=== PATIENT | male | born 1960 | race Two or more races ===

== ENCOUNTER → 2024-09-24 | Outpatient (CLI) | payer MEDICARE, SELFPAY ==
[2024-09-24 09:51] LABS: Basophils # (Auto) 0.1 Thou/mm3 (0.0-0.2); Basophils % (Auto) 1 % (0-2.5); Eosinophils # (Auto) 0.3 Thou/mm3 (0.0-0.5); Eosinophils % (Auto) 2 % (0-10); Hematocrit 42.1 % (41.0-53.0); Immature Granulocytes % (Auto) 2 % (0-0); Immature Granulocytes Auto 0.17 Thou/mm3 (0.00-0.00); Lymphocytes # (Auto) 2.4 Thou/mm3 (1.0-4.8); Lymphocytes % (Auto) 22 % (10-50); Mean Corpuscular HGB Conc 33.3 g/dl (31.0-37.0); Mean Corpuscular Hemoglobin 33.7 pg (25.0-35.0); Mean Corpuscular Volume 101 fL (80-100); Monocytes # (Auto) 0.8 Thou/mm3 (0.0-0.8); Monocytes % (Auto) 7 % (0-12); Neutrophils # (Auto) 7.5 Thou/mm3 (1.8-7.7); Neutrophils % (Auto) 67 % (37-80); Nucleated Red Blood Cell % 0 /100 WBC (0); Platelet Count 171 Thou/mm3 (140-440); Red Blood Count 4.15 Miln/mm3 (4.50-5.90); White Blood Count 11.2 Thou/mm3 (3.8-10.6)
[2024-09-24 10:00] LABS: Glucose Estimated Average 114 mg/dL (80-131); Hemoglobin A1C 5.6 % Hgb (4.8-6.0)
[2024-09-24 10:03] LABS: PSA Medicare Annual Scrn 0.67 ng/mL (0-4.00)
[2024-09-24 10:07] LABS: Alanine Aminotransferase 22 U/L (10-49); Albumin, Serum 4.6 gm/dL (3.4-4.8); Alkaline Phosphatase 72 U/L (46-116); Anion Gap 9 (7-16); Aspartate Amino Transferase 14 U/L (0-34); BUN/Creatinine Ratio 21 Ratio (12-20); Bilirubin,Total 0.6 mg/dL (0.3-1.2); Blood Urea Nitrogen 21 mg/dL (9-23); C-Reactive Protein < 0.4 mg/dL (0.0-0.9); Calcium 9.9 mg/dL (8.3-10.6); Calcium (Corrected) 9.9 mg/dL (8.5-10.1); Carbon Dioxide 26.6 mMol/L (20.0-31.0); Cardiac Risk Estimate 3.5 RATIO (4.0-6.7); Chloride 105 mMol/L (98-107); Cholesterol 146 mg/dL (132-200); Globulin 2.3 gm/dL (2.3-3.5); Glucose 114 mg/dL (74-106); HDL Cholesterol 42 mg/dL (40-60); LDL Cholesterol,Calculated 76 mg/dL (0-130); Osmolality,Calculated 285 (275-295); Potassium 4.1 mMol/L (3.4-5.1); Sodium 141 mMol/L (136-145); Total Protein 6.9 gm/dL (5.7-8.2); Triglycerides 141 mg/dL (30-150); eGFR > 60 See Note
[2024-09-24 10:18] LABS: Sed Rate (ESR) 2 mm/hr (0-20)
[2024-09-24 11:14] LABS: RA Screen Negative (Negative)
[2024-09-27 06:44] LABS: ANA Screen, IFA NEGATIVE (NEGATIVE)
== END | disposition home or self-care (01) ==
LOC: COPL 07:59
PROVIDERS: PCP Internal Medicine; Referring Provider Internal Medicine; Visit Provider Internal Medicine
DX: M06.9 Rheumatoid arthritis, unspecified (principal); I48.91 Unspecified atrial fibrillation; D47.Z2 Castleman disease; R35.1 Nocturia
CPT/HCPCS: 36415; 80053; 80061; 83036; 84153; 85025; 85652; 86038; 86140; 86430; G0103

== ENCOUNTER → 2024-12-11 | Outpatient (CLI) | payer MEDICARE, SELFPAY ==
--- NOTE | 2024-12-11 08:12 | XR_ITS ---
Examination: Lumbar spine, 5 views Technique: Lumbar spine AP, lateral, coned lateral lower lumbar spine, bilateral obliques 5 views Exam date and time: December 11, 2024 0820 hours INDICATIONS: Low back pain radiating down both legs with difficulty standing 2 months, history lumbar spine surgery one year ago FINDINGS: Transpedicular lumbar fusion L4-S1 with satisfactory alignment Laminectomies L4, L5 Mild disc narrowing above the fusion site, L1-L2, L2-L3, L3-L4 No lumbar fracture Mild lumbar spondylosis IMPRESSION: Transpedicular lumbar fusion L4-S1 with anatomic alignment Degenerative disc disease as above
[2024-12-11 09:03] LABS: Misc Send Out* See Sep Rpt; Quantiferon-TB* See Sep Rpt
[2024-12-11 09:49] LABS: Basophils % (Auto) 0 % (0-2.5); Eosinophils # (Auto) 0.3 Thou/mm3 (0.0-0.5); Eosinophils % (Auto) 3 % (0-10); Hematocrit 44.5 % (41.0-53.0); Hemoglobin 14.8 g/dL (13.5-16.0); Immature Granulocytes % (Auto) 1 % (0-0); Immature Granulocytes Auto 0.09 Thou/mm3 (0.00-0.00); Lymphocytes % (Auto) 22 % (10-50); Mean Corpuscular HGB Conc 33.3 g/dl (31.0-37.0); Mean Corpuscular Hemoglobin 33.4 pg (25.0-35.0); Mean Corpuscular Volume 101 fL (80-100); Monocytes # (Auto) 0.7 Thou/mm3 (0.0-0.8); Monocytes % (Auto) 8 % (0-12); Neutrophils # (Auto) 6.1 Thou/mm3 (1.8-7.7); Neutrophils % (Auto) 66 % (37-80); Nucleated Red Blood Cell % 0 /100 WBC (0); Platelet Count 174 Thou/mm3 (140-440); RDW Standard Deviation 50.7 fL (35.1-43.9); Red Blood Count 4.43 Miln/mm3 (4.50-5.90); White Blood Count 9.2 Thou/mm3 (3.8-10.6)
[2024-12-11 10:01] LABS: Sed Rate (ESR) 2 mm/hr (0-20)
[2024-12-11 10:02] LABS: Glucose Estimated Average 108 mg/dL (80-131); Hemoglobin A1C 5.4 % Hgb (4.8-6.0)
[2024-12-11 10:04] LABS: Parathyroid Hormone Intact 56.5 pg/ml (18.5-88.0)
[2024-12-11 10:29] LABS: Alanine Aminotransferase 26 U/L (10-49); Albumin, Serum 4.5 gm/dL (3.4-4.8); Albumin/Globulin Ratio 1.9 (1.2-2.2); Alkaline Phosphatase 71 U/L (46-116); Anion Gap 10 (7-16); Aspartate Amino Transferase 16 U/L (0-34); BUN/Creatinine Ratio 20 Ratio (12-20); Bilirubin,Total 2.3 mg/dL (0.3-1.2); Blood Urea Nitrogen 20 mg/dL (9-23); C-Reactive Protein < 0.5 mg/dL (0.0-0.9); Calcium 9.6 mg/dL (8.3-10.6); Calcium (Corrected) 9.6 mg/dL (8.5-10.1); Carbon Dioxide 27.2 mMol/L (20.0-31.0); Cardiac Risk Estimate 4.1 RATIO (4.0-6.7); Chloride 105 mMol/L (98-107); Cholesterol 144 mg/dL (132-200); Free T4 (Free Thyroxine) 1.72 ng/dL (0.89-1.76); Globulin 2.4 gm/dL (2.3-3.5); Glucose 111 mg/dL (74-106); HDL Cholesterol 35 mg/dL (40-60); LDL Cholesterol,Calculated 89 mg/dL (0-130); Osmolality,Calculated 286 (275-295); Potassium 3.8 mMol/L (3.4-5.1); Sodium 142 mMol/L (136-145); Thyroid Stimulating Hormone 1.77 uIU/mL (0.55-4.78); Total Protein 6.9 gm/dL (5.7-8.2); Triglycerides 102 mg/dL (30-150); Uric Acid 6.5 mg/dL (3.7-9.2); eGFR > 60 See Note
[2024-12-11 10:51] LABS: Hepatitis A Antibody IgM Non Reactive (Non React); Hepatitis B Core Antibody IgM Non Reactive (Non React); Hepatitis B Surface Antigen Non Reactive (Non React); Hepatitis C Antibody Non Reactive (Non React)
[2024-12-11 11:24] LABS: RA Screen Negative (Negative)
[2024-12-12 11:35] LABS: Cocci Serology, IgM Negative (Negative)
[2024-12-13 11:29] LABS: Cocci Serology, IgG Negative (Negative)
[2024-12-18 07:23] LABS: ANA Screen, IFA NEGATIVE (NEGATIVE); CCP Antibody (IgG)* <16 Units; Complement Component C3* 99 mg/dL (82-185); Complement Component C4c* 10 mg/dL (15-53); HIV Ag/Ab, 4th Gen NON-REACTIVE
== END | disposition home or self-care (01) ==
LOC: CDIM 07:58 → COPL 08:28
PROVIDERS: PCP Internal Medicine; Referring Provider Internal Medicine; Visit Provider Internal Medicine
DX: D47.Z2 Castleman disease (principal); E79.0 Hyperuricemia without signs of inflammatory arthritis and tophaceous disease; E83.52 Hypercalcemia; I10 Essential (primary) hypertension; I48.20 Chronic atrial fibrillation, unspecified; K21.9 Gastro-esophageal reflux disease without esophagitis; M06.9 Rheumatoid arthritis, unspecified; M51.372 Other intervertebral disc degeneration, lumbosacral region with discogenic back pain and lower extremity pain; R53.83 Other fatigue; Z11.1 Encounter for screening for respiratory tuberculosis; Z11.59 Encounter for screening for other viral diseases; Z13.820 Encounter for screening for osteoporosis; Z68.33 Body mass index [BMI] 33.0-33.9, adult; Z79.01 Long term (current) use of anticoagulants; Z79.52 Long term (current) use of systemic steroids; Z98.1 Arthrodesis status
CPT/HCPCS: 36415; 72110; 80053; 80061; 80074; 83036; 83970; 84439; 84443; 84550; 85025; 85652; 86038; 86140; 86160; 86200; 86331; 86430; 86480; 86635; 87389

== ENCOUNTER 2025-03-11 04:53 | Emergency (ER) | payer MEDICARE, SELFPAY ==
[2025-03-11 04:53] VITALS: BMI 33.6
[2025-03-11 04:59] VITALS: BP 151/80; PULSE 96; RESP 17; TEMP 36.6; O2SAT 93
--- NOTE | 2025-03-11 05:05 | EDNOTE_ITS ---
ED SOB =RME/HPI General Chief Complaint: Shortness of Breath/Dyspnea Stated Complaint: SOB Time Seen by Provider: 03/11/25 05:00 Arrival date/time: 03/11/25 04:53 RME / HPI RME / HPI Narrative: Dr. Garrido?s Main ED Evaluation: 64yo male with a history of aFib on Eliquis, CHF, HTN, Castleman disease, pacemaker presents to the ED for a chief complaint of shortness of breath x 1 month. Patient states his shortness of breath s ignificantly worsened tonight, reporting he was unable to wait until this afternoon to see his PCP, so he came in for evaluation. Patient reports associated chest tightness and pressure and a productive cough. Patient denies any fever, chills, abdominal pain, UTI symptoms or any other associated symptoms. He is an occasional tobacco smoker. Denies any alcohol or illicit drug use. 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 Marquez. NKA. Related Data Home Medications ?Medication ?Instructions ?Recorded ?Confirmed apixaban 5 mg tablet (Eliquis) 5 mg PO QDAY 12/12/23 0 12/12/23 digoxin 125 mcg (0.125 mg) tablet 0.125 mg PO QDAY 12/12/23 Previous Rx's ?Medication ?Instructions ?Recorded bumetanide 2 mg tablet 2 mg PO QDAY #30 tabs diltiazem HCl 240 mg capsule,24 240 mg PO QAM #30 caps 12/14/23 hr,extended release spironolactone 25 mg tablet 25 mg PO QAM #30 tabs 11/24 10/18 Allergies Allergy/AdvReac Type Severity Reaction Status Date / Time No Known Allergies Allergy Verified 03/11/25 04:55 Review of Systems Review of Systems Systems Reviewed: All systems reviewed, normal except as documented Past Medical History Past Medical History NEUROLOGIC: Negative Neurological Disorders or Seizures CARDIAC: Positive Cardiac Disorders (afib, sick sinus syndrome, pacemaker, HTN), Atrial Fibrillation, Edema (HANDS AND FEET) and Hypertension; Negative Congestive Heart Failure RESPIRATORY: Negative Chronic Obstructive Pulmonary Disease (COPD) or Asthma (Recent cough, sob, pleural effusion,) GASTROINTESTINAL: Negative Gastrointestinal Disorders (SEVERE NAUSEA SINCE AUGUST 2023) GENITOURINARY: Negative Genitourinary Disorders or Renal Disease MUSCULOSKELETAL: Positive Musculoskeletal Disorders, Arthritis and Osteoporosis ENDOCRINE: Negative Endocrine Disorders, Diabetes Mellitus Type 1 or Diabetes Mellitus Type 2 HEMATOLOGIC: Negative Blood Disorders or Sickle Cell Disease OTHER HISTORY: Positive Chicken Pox, Measles and Mumps; Negative Hospitalization, Autoimmune Disease, Shingles, Falls, Blood Transfusions, Blood Transfusion Reaction, Anesthesia Reactions, Organ Transplant, MRSA or Cancer Family History FAMILY HISTORY: Positive Family Cardiac Disorders; Negative Family Psychiatric Problems, Family Respiratory Disorders, Family Gastrointestinal Problems, Family Cancer or Family Anesthesia Reaction Surgical History SURGICAL: Positive Pacemaker and Joint Replacement; Negative Neurologic Surgery or Organ Transplant Social History SMOKING STATUS: Never smoker SUBSTANCE USE: does not use ED Exam Narrative Physical exam: GEN. APPEARANCE: The patient is alert awake oriented X-3 in no distress, lying down comfortably, does not look ill/toxic. Patient has good eye contact. Patient is cooperative. VITALS: All vitals were reviewed and the pulse ox is 93% on room air which is slightly hypoxic according to my interpretation. HEENT: Normocephalic, atraumatic. Pupils are equal and reactive. Oral mucosa is moist. Patent Nares NECK: Supple, nontender, no thyromegaly, no meningismus, no JVD CHEST: Symmetrical, atraumatic, and with equal expansion , Nontender on palpation no deformity and no crepitus. CARDIOVASCULAR: Heart regular rhythm no murmur or gallop rub or extra beats. LUNGS: Clear to auscultation bilaterally with symmetrical chest rise. No laboring tachypnea or wheezing. No intercostal subcostal retraction. No rales and no rhonchi. ABDOMEN: Soft, flat, nontender to palpation, no guarding or rebound tenderness. There are no abnormal masses palpated. Active and normal bowel sounds. EXTREMITIES: Nontender. No edema. No cyanosis. Patient is able to move all 4 extremities well, with full ROM and good CSM. SKIN: Warm and dry, no jaundice or rashes noted. MUSCULOSKELETAL: No lumbar or midline bony tenderness. There is no CVA tenderness. No paraspinal muscle spasm or tenderness. NEURO: Patient is MCBRIDE x 4, Cranial nerves II through XII grossly intact. There is no focal neurologic deficits noted. GCS is 15, PNS and DESULPHURIZER OPERATOR appear grossly intact. PSYCHIATRIC: Patient is in normal mood and affect. Course Course Course Narrative: CXR is ordered for determining the etiology of shortness of breath. Quality Measures none Orders Category Date Time Status Bedside COVID-19 Antigen Test NOW Care 03/11/25 05:08 Active EKG (ED ONLY) *Do not use* NOW Care 03/11/25 05:47 Active CXR2 [XR chest 2V] Stat Exams 03/11/25 05:08 Taken EKG (ED Only) Stat Exams 03/11/25 05:47 Ordered BNP [B-Type Natriuretic Peptide] Stat Lab 03/11/25 05:27 Received CBC Stat Lab 03/11/25 05:27 Received CMP [Comprehensive Metabolic Panel] Stat Lab 03/11/25 05:27 Received D-Dimer Stat Lab 03/11/25 05:27 Received Troponin I Stat Lab 03/11/25 05:27 Received Vital Signs Vital signs: Vital Signs Temperature 97.8 F 03/11/25 04:59 Pulse Rate 96 03/11/25 04:59 Respiratory Rate 17 03/11/25 04:59 Blood Pressure 151/80 H 03/11/25 04:59 Pulse Oximetry (%) 93 L 03/11/25 04:59 Oxygen Delivery Method Room Air 03/11/25 04:59 Shortness of Breath / Dyspnea MDM Narrative MDM Narrative:: Scribe Attestation: 03/11/25 Luann Hargrove am scribing for and in the presence of Dr. Garrido. Patient data External records reviewed:: [facility] previous records (Per chart review, patient was admitted here on 12/11/23 for aFib RVR.) Clinical information provided by:: patient Social determinants that could affect healthcare access:: substance use (occasional tobacco smoker) Patient has the following chronic illnesses:: aFib on Eliquis, CHF, HTN, Castleman disease How is presenting disease/condition affected by chronic disease/condition?: exacerbated by Evaluation data The following diagnostics were reviewed and interpreted by me:: lab results, radiology exam(s) and EKG tracing(s) Lab and/or radiology exams considered but not ordered:: none Interpretation Summary: Labs pending at signout. CXR shows no pleural effusions, no infiltrates, prominent vessels appreciated with cephalization, no consolidation, according to my interpretation. EKG done at 0553, aFib RVR, rate of 102, normal QTc, nonspecific ST-T changes, no STEMI, according to my interpretation. Medications / Prescriptions Medications or Prescriptions considered but not ordered:: none Medication administrations:: none Consultations Consultation(s) initiated? (list below): No Diagnosis Shortness of Breath Differential Diagnosis: community acquired pneumonia, pulmonary embolism and other (ACS, arrhythmia, CHF exacerbation) Most likely diagnosis given after review of the tests above:: dx pending at signout Admission Indicated Admission indicated?: not indicated Admission Request Was there a request for admission?: No Disposition Plan Disposition Plan: other (specify) (Signed out to Dr. Knox at 0600 pending labs and EKG.) Discharge Plan Prescriptions/Referrals Prescriptions/Med Rec: No Action digoxin 125 mcg (0.125 mg) tablet 0.125 mg PO QDAY Patient Comments: TAKE 1 TABLET BY MOUTH ONCE DAILY Eliquis 5 mg Tablet 5 mg PO QDAY spironolactone 25 mg Tablet 25 mg PO QAM Qty: 30 0RF diltiazem HCl 240 mg capsule,extended release 24 hr 240 mg PO QAM Qty: 30 0RF bumetanide 2 mg tablet 2 mg PO QDAY Qty: 30 0RF Referrals: Miki Broussard [Primary Care Provider] - In 1 week Problem List Clinical Impression: Chest pressure, Shortness of breath Patient/Caregiver Discharge Instructions Print Language: Macedonian
--- NOTE | 2025-03-11 05:08 | XR_ITS ---
Examination: PA lateral chest 2 views TECHNIQUE: Upright PA and lateral chest 2 views Shortness of breath one month worse tonight FINDINGS: Mild/moderate CHF Moderately large cardiac contour. Prominent vascular congestion with perihilar basilar edema Intraventricular cardiac lead satisfactory position IMPRESSION: Mild to moderate CHF
[2025-03-11 05:41] LABS: Basophils # (Auto) 0.1 Thou/mm3 (0.0-0.2); Basophils % (Auto) 0 % (0-2.5); Eosinophils # (Auto) 0.4 Thou/mm3 (0.0-0.5); Eosinophils % (Auto) 2 % (0-10); Hematocrit 45.3 % (41.0-53.0); Hemoglobin 15.1 g/dL (13.5-16.0); Immature Granulocytes % (Auto) 1 % (0-0); Immature Granulocytes Auto 0.17 Thou/mm3 (0.00-0.00); Lymphocytes # (Auto) 2.3 Thou/mm3 (1.0-4.8); Lymphocytes % (Auto) 16 % (10-50); Mean Corpuscular HGB Conc 33.3 g/dl (31.0-37.0); Mean Corpuscular Hemoglobin 33.2 pg (25.0-35.0); Mean Corpuscular Volume 100 fL (80-100); Monocytes # (Auto) 1.3 Thou/mm3 (0.0-0.8); Monocytes % (Auto) 9 % (0-12); Neutrophils # (Auto) 10.6 Thou/mm3 (1.8-7.7); Neutrophils % (Auto) 71 % (37-80); Nucleated Red Blood Cell % 0 /100 WBC (0); Platelet Count 181 Thou/mm3 (140-440); RDW Standard Deviation 55.2 fL (35.1-43.9); Red Blood Count 4.55 Miln/mm3 (4.50-5.90); White Blood Count 14.8 Thou/mm3 (3.8-10.6)
--- NOTE | 2025-03-11 05:47 | EKG_ITS ---
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
[2025-03-11 05:57] LABS: B-Type Natriuretic Peptide 113 pg/mL (0-100)
[2025-03-11 06:08] LABS: Alanine Aminotransferase 18 U/L (10-49); Albumin, Serum 4.4 gm/dL (3.4-4.8); Albumin/Globulin Ratio 1.8 (1.2-2.2); Alkaline Phosphatase 168 U/L (46-116); Anion Gap 9 (7-16); Aspartate Amino Transferase 22 U/L (0-34); BUN/Creatinine Ratio 17 Ratio (12-20); Blood Urea Nitrogen 20 mg/dL (9-23); Calcium 9.8 mg/dL (8.3-10.6); Calcium (Corrected) 9.8 mg/dL (8.5-10.1); Carbon Dioxide 25.3 mMol/L (20.0-31.0); Chloride 107 mMol/L (98-107); Creatinine (Component) 1.2 mg/dL (0.6-1.3); Estimated Creatinine Clearance 80.7 mL/min (>60); Globulin 2.5 gm/dL (2.3-3.5); Glucose 140 mg/dL (74-106); Osmolality,Calculated 285 (275-295); Potassium 4.3 mMol/L (3.4-5.1); Sodium 141 mMol/L (136-145); Total Protein 6.9 gm/dL (5.7-8.2); Troponin I < 0.020 ng/mL (0.0-0.045); eGFR > 60 See Note
[2025-03-11 06:18] LABS: D-Dimer 418 ng/mL (<600)
[2025-03-11 06:24] VITALS: BP 137/88; PULSE 110; RESP 18; TEMP 36.7; O2SAT 95
--- NOTE | 2025-03-11 07:41 | PD.EDADDENDU ---
Emergency Room Addendum Addendum Narrative: 0600: Care assumed from Dr. Garrido, the previous shift emergency physician. Past medical, surgical, social and family history reviewed. Vitals and home medications reviewed. I will assume the care of the patient at this time, pending labs and final disposition. Please refer to the emergency department record for history and examination from initial visit.?The following addendum documentation note is intended to reflect any pending information, findings, or radiology results not included in the patient?s initial chart. Patient remains clinically stable throughout the emergency department visit. We reviewed all the results, analysis, and treatment plans. D-Dimer today was 481 and within the normal range. CT angio is not indicated at this time. Patient also noted to have yellow sputum therefore will treat for bronchitis. Patient mentioned they changed his medications 8 months ago and unsure if that is a contributor. Patient is amenable to discharge. Strict return precautions were outlined. Patient was discharged in stable condition.
[2025-03-11 08:00] VITALS: BP 137/93; PULSE 108
[2025-03-11] MEDS: Furosemide 40 MG TABLET PO (08:00)
[2025-03-11 08:01] VITALS: BP 137/93; PULSE 103; RESP 20; TEMP 36.6; O2SAT 96
[2025-03-11 08:28] LABS: Digoxin 0.7 ng/mL (0.8-2.0)
[2025-03-11 09:42] VITALS: BP 145/99; PULSE 100; RESP 16; TEMP 36.7; O2SAT 95
== END 2025-03-11 09:43 | disposition home or self-care (01) ==
PROVIDERS: Emergency Provider Emergency Medicine; PCP Internal Medicine
DX: R06.02 Shortness of breath (principal); R07.89 Other chest pain; I48.91 Unspecified atrial fibrillation; I11.0 Hypertensive heart disease with heart failure; I50.9 Heart failure, unspecified; Z95.0 Presence of cardiac pacemaker
CPT/HCPCS: 36415; 71046; 80053; 80162; 83880; 84484; 85025; 85379; 87811; 93005; 99283; A9270

== ENCOUNTER 2025-03-15 17:43 | Inpatient (IN) | payer MEDICARE, SELFPAY ==
[2025-03-15 18:22] VITALS: BP 170/88; PULSE 96; RESP 18; TEMP 37.1; O2SAT 95; BMI 33.0
--- NOTE | 2025-03-15 18:30 | XR_ITS ---
Examination: PA chest single view FINDINGS: Upright PA chest single view Date and time: March 15, 2025 1833 hours Comparison March 11, 2025 INDICATIONS: Left supraclavicular swelling today FINDINGS: Siel-iu-hjwazllm heart failure Moderate enlarged cardiac contour Prominent vascular congestion with perihilar basilar edema Possible superimposed pneumonia right base Moderate right pleural effusion Stable position cardiac bleed Impression: [id number] heart failure Suspicious for superimposed pneumonia right base
--- NOTE | 2025-03-15 18:30 | EKG_ITS ---
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
--- NOTE | 2025-03-15 18:34 | PD.EDURI ---
Upper Respiratory Inf. 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 Patient told me that started earlier today severity of symptoms moderate. Patient is denying any pain. Denies any shortness of breath. Patient denies any fever. Denies any other complaints last infusion was given 2 weeks ago Related Data Home Medications ?Medication ?Instructions ?Recorded ?Confirmed apixaban 5 mg tablet (Eliquis) 5 mg PO QDAY 12/12/23 12/12/23 digoxin 125 mcg (0.125 mg) tablet 0.125 mg PO QDAY 12/12/23 12/12/23 Previous Rx's ?Medication ?Instructions ?Recorded bumetanide 2 mg tablet 2 mg PO QDAY #30 tabs 12/14/23 diltiazem HCl 240 mg capsule,24 240 mg PO QAM #30 caps 12/14/23 hr,extended release spironolactone 25 mg tablet 25 mg PO QAM #30 tabs 12/14/23 amoxicillin 875 mg-potassium 1 tab PO BID bronchitis #20 tabs 03/11/25 clavulanate 125 mg tablet Allergies Allergy/AdvReac Type Severity Reaction Status Date / Time No Known Allergies Allergy Verified 03/15/25 17:47 Review of Systems Review of Systems Narrative Review of Systems: Review of system reviewed and within normal limits except mentioned in HPI ED Exam Narrative Physical exam: VITAL SIGNS: Reviewed. GENERAL APPEARANCE: Alert and interactive, follows commands, no acute distress, HEAD AND FACE: Non-traumatic., Swelling noted on the left supraclavicular area nontender nonfluctuant ENT: PERRL, pink conjunctivitis, eyelid no trauma, Mucous membrane moist. NECK: Supple, nontender, no nuchal rigidity. CHEST: No tenderness, no crepitus, no paradoxical movement, no retractions. LUNGS: Clear, well ventilated, symmetric, no rales, no wheezing, no ronchi, no stridor, good breath sounds bilaterally. HEART: Regular rate, regular rhythm, no murmur, no gallops. ABDOMEN: Soft, positive bowel sounds, nondistended, no guarding, nontender, no rebound, no masses, RECTAL: Deferred. GENITAL: Deferred. NEUROLOGICAL: Gross motor function intact sensory function intact, Appropriate for age. MUSCULOSKELETAL: low back nontender, full range of motion. EXTREMITIES: Nontender, full range of motion. SKIN: Color pink, dry, no rash, no lacerations, no abrasions, no contusions. LYMPHATICS: Deferred. Course Orders Category Date Time Status EKG (ED ONLY) *Do not use* NOW Care 03/15/25 18:30 Active EKG (ED Only) Stat Exams 03/15/25 18:30 Ordered XR chest 1V Stat Exams 03/15/25 18:30 Ordered B-Type Natriuretic Peptide Stat Lab 03/15/25 18:30 Ordered CBC Stat Lab 03/15/25 18:30 Ordered CRP [C-Reactive Protein] Stat Lab 03/15/25 18:30 Ordered Comprehensive Metabolic Panel Stat Lab 03/15/25 18:30 Ordered ESR [Sed Rate (ESR)] Stat Lab 03/15/25 18:30 Ordered Partial Thromboplastin Time Stat Lab 03/15/25 18:30 Ordered Prothrombin Time with INR Stat Lab 03/15/25 18:30 Ordered Troponin I Stat Lab 03/15/25 18:30 Ordered Vital Signs Vital signs: Vital Signs Temperature 98.7 F 03/15/25 18:22 Pulse Rate 96 03/15/25 18:22 Respiratory Rate 18 03/15/25 18:22 Blood Pressure 170/88 H 03/15/25 18:22 Pulse Oximetry (%) 95 03/15/25 18:22 Oxygen Delivery Method Room Air 03/15/25 18:22 Discharge Plan Prescriptions/Referrals Prescriptions/Med Rec: No Action amoxicillin-pot clavulanate 875-125 mg tablet 1 tab PO BID MDD 2 Qty: 20 0RF digoxin 125 mcg (0.125 mg) tablet 0.125 mg PO QDAY Patient Comments: TAKE 1 TABLET BY MOUTH ONCE DAILY Eliquis 5 mg Tablet 5 mg PO QDAY spironolactone 25 mg Tablet 25 mg PO QAM Qty: 30 0RF diltiazem HCl 240 mg capsule,extended release 24 hr 240 mg PO QAM Qty: 30 0RF bumetanide 2 mg tablet 2 mg PO QDAY Qty: 30 0RF Patient/Caregiver Discharge Instructions Print Language: Australian
--- NOTE | 2025-03-15 18:37 | XR_ITS ---
Examination: CT soft tissue neck, with intravenous contrast. 2-D coronal reconstructions. 2-D sagittal reconstructions. Date and time of exam :March 15, 2025 10:28 PM INDICATIONS: Left neck supraclavicular swelling today. CTDI: vol (mGy):25.7 DLP: (mGycm):640 Technique: 1.25 mm axial sections of the neck of the obtained. Coronal and sagittal reconstructions have been obtained. Intravenous contrast administered 100 cc Isovue-370. Low dose protocols were performed. One or more of the following dose reduction techniques were used; automated exposure control, adjustment of the mA and/or KV according to patient size, use of iterative reconstruction technique. Findings: Symmetrical nasopharynx oropharynx Abnormal multiple enlarged left carotid triangle left posterior cervical left supraclavicular lymph nodes Prominent right pleural effusion Extensive partly visualized abnormal mediastinal lymphadenopathy IMPRESSION: Extensive abnormal cervical supraclavicular lymphadenopathy suspicious for metastatic disease Partially visualized extensive mediastinal lymphadenopathy
--- NOTE | 2025-03-15 18:54 | PD.EDURI ---
Upper Respiratory Inf. 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 Patient told me that started earlier today severity of symptoms moderate. Patient is denying any pain. Denies any shortness of breath. Patient denies any fever. Denies any other complaints last infusion was given 2 weeks ago This section includes all my notes and documentations, including HPI, PE, and ED course. Jacob Baca MD HPI: 64 y/o with Hx of Atrial Fibrillation, Congestive Heart Failure, Edema and Hypertension presents with worsening dyspnea and cough productive of green sputum x 2 weeks. In addition, patient also c/o a big lump to the left neck area x approximately 12 hours. Denies chest pain. No other complaints. ROS: All negative except as documented in HPI. Physical Exam: General: Alert and oriented. In mild respiratory distress. Hypoxia noted. Eyes: Conjunctivae and lids clear. ENT: No nasal congestion. Neck: Supple. Left-sided plum sized lump noted. Heart: Irregularly irregular (~150 bpm). Lungs: No respiratory distress. Good air movement with rales. Abdomen: Soft and nontender. Normal bowel sounds. No distension. No rebound or guarding. Back: No CVA tenderness. Skin: Warm and dry. Neuro: Alert and oriented X 3. I reviewed all diagnostic test results: My interpretation of the EKG is: Atrial fibrillation with RVR (140 bpm) with nonspecific ST-T changes. My interpretation of the chest x-ray is infiltrates. My review of the Head/Brain CT report is: NAD. My review of the Soft Tissue Neck CT report is: Extensive abnormal cervical supraclavicular lymphadenopathy suspicious for metastatic disease. My review of the Abdomen/Pelvis CT report is: Extensive abdominal pelvic mesenteric presumed metastatic lymphadenopathy. My review of the Chest CTA report is: Large right pleural effusion. Extensive mediastinal lymphadenopathy. Pneumonia in the right middle lobe and right lower lobe. Blood tests and urine tests remarkable for WBC 16.6 and D-dimer 1020. Covid/Influenza negative. At this point, diagnoses include: Acute Respiratory Failure with Hypoxia, Atrial Fibrillation with RVR, Pneumonia. Treatment here included: Cardizem bolus and drip, Rocephin, and Zithromax. I discussed the case with our hospitalist. About the presentation and exam and diagnostics and treatments here. And need of further care in the hospital. Will accept the patient. Jacob Baca MD Related Data Home Medications ?Medication ?Instructions ?Recorded ?Confirmed apixaban 5 mg tablet (Eliquis) 5 mg PO BID 12/12/23 03/16/25 digoxin 125 mcg (0.125 mg) tablet 0.125 mg PO QDAY 12/12/23 03/16/25 allopurinol 300 mg tablet 300 mg PO DAILY 03/16/25 03/16/25 lisinopril 20 mg tablet 20 mg PO DAILY 03/16/25 03/16/25 methylprednisolone 4 mg tablets in 4 mg PO DAILY 03/16/25 03/16/25 a dose pack metoprolol tartrate 100 mg tablet 100 mg PO BID 03/16/25 03/16/25 pantoprazole 40 mg tablet,delayed 40 mg PO DAILY 03/16/25 03/16/25 release Previous Rx's ?Medication ?Instructions ?Recorded bumetanide 2 mg tablet 2 mg PO QDAY #30 tabs 12/14/23 diltiazem HCl 240 mg capsule,24 240 mg PO QAM #30 caps 12/14/23 hr,extended release spironolactone 25 mg tablet 25 mg PO QAM #30 tabs 12/14/23 amoxicillin 875 mg-potassium 1 tab PO BID bronchitis #20 tabs 03/11/25 clavulanate 125 mg tablet Allergies Allergy/AdvReac Type Severity Reaction Status Date / Time No Known Allergies Allergy Verified 03/15/25 17:47 Review of Systems Review of Systems Systems Reviewed: All systems reviewed, normal except as documented Past Medical History Past Medical History CARDIAC: Positive Cardiac Disorders, Atrial Fibrillation, Congestive Heart Failure, Edema and Hypertension MUSCULOSKELETAL: Positive Musculoskeletal Disorders, Arthritis and Osteoporosis OTHER HISTORY: Positive Chicken Pox and Mumps Family History FAMILY HISTORY: Positive Family Cardiac Disorders Surgical History SURGICAL: Positive Pacemaker and Joint Replacement Social History SMOKING STATUS: Former smoker ED Exam Narrative Physical exam: Refer to HPI above Course Course Course Narrative: CXR is ordered for determining the etiology of shortness of breath. Quality Measures none Orders Category Date Time Status Admit to Inpatient Status Routine Admission 03/16/25 00:05 Active Patient Condition Routine Admission 03/16/25 00:05 Ordered Bedside COVID-19 Antigen Test NOW Care 03/15/25 18:54 Active Bedside Influenza A&B Antigen Test NOW Care 03/15/25 18:[address] Screening NOW Care 03/15/25 18:[address] Screening NOW Care 03/15/25 18:56 Active Continuous Pulse Oximetry NOW Care 03/16/25 00:04 Completed EKG (ED ONLY) *Do not use* NOW Care 03/15/25 18:30 Completed NPO NOW Care 03/16/25 00:06 Active Notify provider NEEDED Care 03/16/25 00:05 Active Saline [Insert IV] NOW Care 03/15/25 18:54 Active Straight [In and Out Catheter] X1 Care 03/15/25 18:54 Active Strict Intake and Output Routine Care 03/16/25 00:05 Ordered Diet NPO (NOW) Diet 03/16/25 00:[address] abdomen pelvis w con Stat Exams 03/15/25 18:[address] angio chest Stat Exams 03/15/25 18:[address] head/brain wo con Stat Exams 03/15/25 18:[address] soft tissue neck w con Stat Exams 03/15/25 18:37 Completed EKG (ED Only) Stat Exams 03/15/25 18:30 Draft XR chest 1V Stat Exams 03/15/25 18:30 Completed B-Type Natriuretic Peptide Stat Lab 03/15/25 18:51 Completed Bilirubin,Direct Stat Lab 03/15/25 18:51 Completed Blood Culture (Lab) Stat Lab 03/15/25 19:15 Results CBC AM DRAW Lab 03/16/25 04:50 Completed CBC AM DRAW Lab 03/17/25 05:00 Ordered CBC AM DRAW Lab 03/18/25 05:00 Ordered CBC Stat Lab 03/15/25 18:51 Completed COVID-19 Antigen (In-House) Stat Lab 03/15/25 19:35 Completed CRP [C-Reactive Protein] Stat Lab 03/15/25 18:51 Completed Cocci Serology IgM with reflex to IgG [Cocci Serology, Lab 03/15/25 19:44 Results Unk History] Stat Comprehensive Metabolic Panel AM DRAW Lab 03/16/25 04:50 Completed Comprehensive Metabolic Panel AM DRAW Lab 03/17/25 05:00 Ordered Comprehensive Metabolic Panel AM DRAW Lab 03/18/25 05:00 Ordered Comprehensive Metabolic Panel Stat Lab 03/15/25 18:51 Completed D-Dimer Stat Lab 03/15/25 18:51 Completed ESR [Sed Rate (ESR)] Stat Lab 03/15/25 18:51 Completed Free T4 (Free Thyroxine) Stat Lab 03/15/25 18:51 Completed Lactate (Lactic Acid) Stat Lab 03/15/25 18:51 Completed Magnesium AM DRAW Lab 03/16/25 04:50 Completed Magnesium AM DRAW Lab 03/17/25 05:00 Ordered Magnesium AM DRAW Lab 03/18/25 05:00 Ordered Magnesium Stat Lab 03/15/25 18:51 Completed Partial Thromboplastin Time Stat Lab 03/15/25 18:51 Completed Phosphorous AM DRAW Lab 03/17/25 05:00 Ordered Phosphorous AM DRAW Lab 03/18/25 05:00 Ordered Phosphorous AM DRAW Lab 03/19/25 05:00 Ordered Procalcitonin Stat Lab 03/15/25 18:51 Completed Prothrombin Time with INR Stat Lab 03/15/25 18:51 Completed TSH [Thyroid Stimulating Hormone] Stat Lab 03/15/25 18:51 Completed Thyroid Stimulating Hormone AM DRAW Lab 03/16/25 04:50 Completed Troponin I Stat Lab 03/15/25 18:51 Completed UA, C/S IF [Urinalysis, C/S if Indicated] Stat Lab 03/15/25 20:15 Completed Urine Culture Stat Lab 03/15/25 20:15 Received VBG [Venous Blood Gas] Stat Lab 03/15/25 19:15 Completed Acetaminophen Tab [Tylenol Tab] Med 03/16/25 00:04 Discontinued 1,000 mg PO Q6H PRN Acetaminophen Tab [Tylenol Tab] Med 03/16/25 00:04 Active 650 mg PO Q6H PRN Albuterol/Ipratr Rt Dominique [Duoneb Rt Dominique] Med 03/16/25 00:04 Active 3 ml INH Q2HR PRN Albuterol/Ipratr Rt Dominique [Duoneb Rt Dominique] Med 03/16/25 01:00 Active 3 ml INH Q6HRRT Azithromycin Po [Zithromax PO] Med 03/15/25 19:12 Discontinued 500 mg PO X1 ONE Dextrose 5%-Water [D5w] 100 ml Med 03/15/25 21:42 Discontinued Diltiazem Inj [Cardizem Inj] 125 mg IV 10 mg/hr Dextrose 5%-Water [D5w] 100 ml Med 03/15/25 18:55 Discontinued Diltiazem Inj [Cardizem Inj] 125 mg IV 5 mg/hr Diltiazem Inj [Cardizem Inj] Med 03/15/25 22:59 Discontinued 20 mg IV X1 ONE Diltiazem Inj [Cardizem Inj] Med 03/15/25 18:54 Discontinued 25 mg IV X1 ONE Ondansetron Inj [Zofran Inj] Med 03/16/25 00:04 Active 4 mg IVP Q6H PRN Senna [Senokot] Med 03/16/25 09:00 Active 1 tab PO QDAY cefTRIAXone/D5w 1gm IV premix [Rocephin/D5w 1gm IV Med 03/15/25 19:12 Discontinued premix] 1 gm in 50 ml IV X1 Code Status Routine Oth 03/16/25 00:04 Ordered Oxygen Delivery DAILY RT 03/16/25 00:06 Active Vital Signs Vital signs: Vital Signs Temperature 98.7 F 03/15/25 18:22 Pulse Rate 96 03/15/25 18:22 Respiratory Rate 18 03/15/25 18:22 Blood Pressure 170/88 H 03/15/25 18:22 Pulse Oximetry (%) 95 03/15/25 18:22 Oxygen Delivery Method Nasal Cannula 03/15/25 18:22 Oxygen Flow Rate 2 03/15/25 18:22 Upper Respiratory Infection MDM Narrative MDM Narrative:: Scribe Attestation: Ling Garcia am scribing for and in the presence of Dr. Baca. Provider Notation: Although this document has been carefully reviewed, there may still be some phonetic and other typographical errors.? These errors are purely grammatical due to imperfections in the software program and should not be construed in any way to? compromise the substance of the patient's medical care during this visit. 64 y/o with Hx of Atrial Fibrillation, Congestive Heart Failure, Edema and Hypertension presents with worsening dyspnea and cough productive of green sputum x 2 weeks. In addition, patient also c/o a big lump to the left neck area x approximately 12 hours. Denies chest pain. No other complaints. Patient data External records reviewed:: [facility] previous records (Reviewed prior ED records from 03/11/25. Patient was seen for Bronchitis.) Clinical information provided by:: patient Social determinants that could affect healthcare access:: none Patient has the following chronic illnesses:: Atrial Fibrillation, Congestive Heart Failure, Edema, Hypertension, Arthritis and Osteoporosis How is presenting disease/condition affected by chronic disease/condition?: exacerbated by Evaluation data The following diagnostics were reviewed and interpreted by me:: lab results, radiology exam(s) and EKG tracing(s) (My interpretation of the EKG is: Atrial fibrillation with RVR (140 bpm) with nonspecific ST-T changes. Jacob Baca MD) Lab and/or radiology exams considered but not ordered:: None Interpretation Summary: I reviewed all diagnostic test results: My interpretation of the EKG is: Atrial fibrillation with RVR (140 bpm) with nonspecific ST-T changes. My interpretation of the chest x-ray is infiltrates. My review of the Head/Brain CT report is: NAD. My review of the Soft Tissue Neck CT report is: Extensive abnormal cervical supraclavicular lymphadenopathy suspicious for metastatic disease. My review of the Abdomen/Pelvis CT report is: Extensive abdominal pelvic mesenteric presumed metastatic lymphadenopathy. My review of the Chest CTA report is: Large right pleural effusion. Extensive mediastinal lymphadenopathy. Pneumonia in the right middle lobe and right lower lobe. Blood tests and urine tests remarkable for WBC 16.6 and D-dimer 1020. Covid/Influenza negative. Medications / Prescriptions Medications or Prescriptions considered but not ordered:: None Medication administrations:: Medication Administration History Acetaminophen (Acetaminophen 325 Mg Tablet) 650 mg PO Q6H PRN PRN Reason: Fever >99.5 Stop: 04/15/25 00:03 Acetaminophen (Acetaminophen 500 Mg Tablet) 1,000 mg PO Q6H PRN PRN Reason: PAIN SCALE 1-3 (mild Stop: 04/15/25 00:03 Last Admin: 03/16/25 20:14 Dose: 1,000 mg Documented By: CCT Albuterol/Ipratropium (Albuterol/Ipratropium (Duoneb) Rt Dominique 3 Ml Nebu) 3 ml INH Q2HR PRN PRN Reason: SHORTNESS OF BREATH OR WHEEZE Stop: 04/15/25 00:03 Albuterol/Ipratropium (Albuterol/Ipratropium (Duoneb) Rt Dominique 3 Ml Nebu) 3 ml INH Q6HRRT [facility] Stop: 04/15/25 00:59 Last Admin: 03/16/25 12:35 Dose: 3 ml Documented By: TMDavid Admin: 03/16/25 07:08 Dose: 3 ml Documented By: Admin: 03/16/25 01:47 Dose: 3 ml Documented By: SC Azithromycin (Azithromycin 250 Mg Tablet) 500 mg PO QDAY [facility] Stop: 03/23/25 08:59 Last Admin: 03/16/25 09:49 Dose: 500 mg Documented By: WG Digoxin (Digoxin 0.125 Mg Tablet) 0.125 mg PO QDAY [facility] Stop: 04/15/25 13:14 Last Admin: 03/16/25 14:27 Dose: 0.125 mg Documented By: PATTI Ceftriaxone Sodium/Dextrose (Rocephin/D5w 1gm Iv Premix) 1 gm in 50 mls @ 100 mls/hr IV QDAY [facility] Stop: 03/23/25 00:10 Last Admin: 03/16/25 09:50 Dose: 100 mls/hr Documented By: Infusion: 03/16/25 01:40 Dose: Infused Documented By: Admin: 03/16/25 01:09 Dose: 100 mls/hr Documented By: MICHAEL Diltiazem HCl (Diltiazem In D5w 125 Mg) 125 mg in 125 mls @ 10 mls/hr IV .[id number] [facility] Stop: 03/16/25 23:59 Last Admin: 03/16/25 08:11 Dose: 10 mls/hr Documented By: PATTI Heparin Sodium/Dextrose (Heparin In D5w Ivpb) 25,000 unit in 250 mls @ 10 mls/hr IV .Q24H [facility]; Protocol Stop: 03/30/25 13:14 Last Admin: 03/16/25 14:18 Dose: 8.8185 units/kg/hr, 10 mls/hr Documented By: PATTI Co-signed By: NATALIIA Metoprolol Succinate (Metoprolol Succinate Xl 25 Mg Tabcr) 100 mg PO BID [facility] Stop: 04/15/25 20:59 Last Admin: 03/16/25 20:14 Dose: 100 mg Documented By: CCT Ondansetron HCl (Ondansetron Inj 2 Mg/Ml Inj 2 Ml) 4 mg IVP Q6H PRN; Protocol PRN Reason: NAUSEA OR VOMITING Stop: 04/15/25 00:03 Sennosides (Senna Tablet) 1 tab PO QDAY [facility]; Protocol Stop: 04/15/25 08:59 Last Admin: 03/16/25 09:49 Dose: 1 tab Documented By: WG Discontinued Medications Acetaminophen (Acetaminophen 325 Mg Tablet) 1,000 mg PO Q6H PRN PRN Reason: PAIN SCALE 1-3 (mild Stop: 04/15/25 00:03 Azithromycin (Azithromycin 250 Mg Tablet) 500 mg PO X1 ONE Stop: 03/15/25 19:13 Last Admin: 03/15/25 19:31 Dose: 500 mg Documented By: DT Bumetanide (Bumetanide Inj 0.25 Mg/Ml Vial 4 Ml) 1 mg IVP QDAY [facility] Stop: 04/15/25 08:59 Ceftriaxone Sodium (Ceftriaxone Sod Inj 1,000 Mg Vial) Confirm Administered Dose 1,000 mg .ROUTE .STK-MED ONE Stop: 03/16/25 00:43 Last Admin: 03/16/25 01:13 Dose: Not Given Documented By: DT Non-Admin Reason: override Diltiazem HCl (Diltiazem Inj 5 Mg/Ml Vial 5 Ml) 25 mg IV X1 ONE Stop: 03/15/25 18:55 Last Admin: 03/15/25 19:11 Dose: 25 mg Documented By: DT Diltiazem HCl (Diltiazem Inj 5 Mg/Ml Vial 5 Ml) 20 mg IV X1 ONE Stop: 03/15/25 23:00 Last Admin: 03/15/25 23:33 Dose: 20 mg Documented By: DT Heparin Sodium (Porcine) (Heparin Sod Inj 5000 Unit/Ml Vial) 8,000 unit IV X1 ONE; Protocol Stop: 03/16/25 02:17 Last Admin: 03/16/25 04:04 Dose: Not Given Documented By: DT Non-Admin Reason: Discontinued Heparin Sodium (Porcine) (Heparin Sod Inj 5000 Unit/Ml Vial) 5,000 unit SC Q8HR [facility] Stop: 03/30/25 05:59 Heparin Sodium (Porcine) (Heparin Sod Inj 5000 Unit/Ml Vial) 5,000 unit SC Q8HR [facility] Stop: 03/30/25 08:59 Last Admin: 03/16/25 09:49 Dose: 5,000 unit Documented By: PATTI Co-signed By: ANGELITO Heparin Sodium (Porcine) (Heparin Sod Inj 5000 Unit/Ml Vial) 4,000 unit IV X1 ONE; Protocol Stop: 03/16/25 13:04 Last Admin: 03/16/25 14:18 Dose: 4,000 unit Documented By: PATTI Co-signed By: NATALIIA Heparin Sodium (Porcine) (Heparin Sod Inj 5000 Unit/Ml Vial) 4,000 unit IVP X1 ONE Stop: 03/16/25 21:41 Heparin Sodium (Porcine) (Heparin Sod Inj 5000 Unit/Ml Vial) 4,000 unit IVP X1 ONE Stop: 03/16/25 21:43 Diltiazem HCl 125 mg/ Dextrose 125 mls @ 5 mls/hr IV .Q24H [facility] Stop: 04/14/25 18:54 Last Infusion: 03/15/25 21:35 Dose: 5 mg/hr, 5 mls/hr Documented By: Infusion: 03/15/25 21:22 Dose: 5 mg/hr, 5 mls/hr Documented By: Infusion: 03/15/25 21:20 Dose: 5 mg/hr, 5 mls/hr Documented By: Infusion: 03/15/25 21:05 Dose: 5 mg/hr, 5 mls/hr Documented By: Infusion: 03/15/25 20:40 Dose: 5 mg/hr, 5 mls/hr Documented By: Infusion: 03/15/25 20:25 Dose: 5 mg/hr, 5 mls/hr Documented By: Infusion: 03/15/25 20:20 Dose: 5 mg/hr, 5 mls/hr Documented By: Infusion: 03/15/25 20:15 Dose: 5 mg/hr, 5 mls/hr Documented By: Infusion: 03/15/25 20:10 Dose: 5 mg/hr, 5 mls/hr Documented By: Infusion: 03/15/25 20:05 Dose: 5 mg/hr, 5 mls/hr Documented By: Infusion: 03/15/25 20:00 Dose: 5 mg/hr, 5 mls/hr Documented By: Infusion: 03/15/25 19:55 Dose: 5 mg/hr, 5 mls/hr Documented By: Infusion: 03/15/25 19:50 Dose: 5 mg/hr, 5 mls/hr Documented By: Infusion: 03/15/25 19:45 Dose: 5 mg/hr, 5 mls/hr Documented By: Infusion: 03/15/25 19:40 Dose: 5 mg/hr, 5 mls/hr Documented By: Infusion: 03/15/25 19:35 Dose: 5 mg/hr, 5 mls/hr Documented By: Infusion: 03/15/25 19:30 Dose: 5 mg/hr, 5 mls/hr Documented By: Admin: 03/15/25 19:25 Dose: 5 mg/hr, 5 mls/hr Documented By: DT Ceftriaxone Sodium/Dextrose (Rocephin/D5w 1gm Iv Premix) 1 gm in 50 mls @ 100 mls/hr IV X1 ONE Stop: 03/15/25 19:41 Last Infusion: 03/15/25 20:00 Dose: Infused Documented By: Admin: 03/15/25 19:30 Dose: 100 mls/hr Documented By: DT Diltiazem HCl 125 mg/ Dextrose 125 mls @ 10 mls/hr IV .[id number] [facility] Stop: 04/15/25 06:00 Last Infusion: 03/16/25 06:25 Dose: 10 mg/hr, 10 mls/hr Documented By: Infusion: 03/16/25 06:10 Dose: 10 mg/hr, 10 mls/hr Documented By: Infusion: 03/16/25 05:55 Dose: 10 mg/hr, 10 mls/hr Documented By: Infusion: 03/16/25 05:40 Dose: 10 mg/hr, 10 mls/hr Documented By: Infusion: 03/16/25 05:25 Dose: 10 mg/hr, 10 mls/hr Documented By: Infusion: 03/16/25 05:10 Dose: 10 mg/hr, 10 mls/hr Documented By: Infusion: 03/16/25 04:55 Dose: 10 mg/hr, 10 mls/hr Documented By: Infusion: 03/16/25 04:40 Dose: 10 mg/hr, 10 mls/hr Documented By: Infusion: 03/16/25 04:25 Dose: 10 mg/hr, 10 mls/hr Documented By: Infusion: 03/16/25 04:10 Dose: 10 mg/hr, 10 mls/hr Documented By: Infusion: 03/16/25 03:55 Dose: 10 mg/hr, 10 mls/hr Documented By: Infusion: 03/16/25 03:40 Dose: 10 mg/hr, 10 mls/hr Documented By: Infusion: 03/16/25 03:25 Dose: 10 mg/hr, 10 mls/hr Documented By: Infusion: 03/16/25 03:10 Dose: 10 mg/hr, 10 mls/hr Documented By: Infusion: 03/16/25 02:55 Dose: 10 mg/hr, 10 mls/hr Documented By: Infusion: 03/16/25 02:40 Dose: 10 mg/hr, 10 mls/hr Documented By: Infusion: 03/16/25 02:25 Dose: 10 mg/hr, 10 mls/hr Documented By: Infusion: 03/16/25 02:10 Dose: 10 mg/hr, 10 mls/hr Documented By: Infusion: 03/16/25 01:55 Dose: 10 mg/hr, 10 mls/hr Documented By: Infusion: 03/16/25 01:40 Dose: 10 mg/hr, 10 mls/hr Documented By: Infusion: 03/16/25 01:25 Dose: 10 mg/hr, 10 mls/hr Documented By: Infusion: 03/16/25 01:10 Dose: 10 mg/hr, 10 mls/hr Documented By: Infusion: 03/16/25 00:55 Dose: 10 mg/hr, 10 mls/hr Documented By: Infusion: 03/16/25 00:40 Dose: 10 mg/hr, 10 mls/hr Documented By: Infusion: 03/16/25 00:25 Dose: 10 mg/hr, 10 mls/hr Documented By: Infusion: 03/16/25 00:10 Dose: 10 mg/hr, 10 mls/hr Documented By: Infusion: 03/15/25 23:55 Dose: 10 mg/hr, 10 mls/hr Documented By: Infusion: 03/15/25 23:40 Dose: 10 mg/hr, 10 mls/hr Documented By: Infusion: 03/15/25 23:25 Dose: 10 mg/hr, 10 mls/hr Documented By: Infusion: 03/15/25 23:10 Dose: 10 mg/hr, 10 mls/hr Documented By: Infusion: 03/15/25 22:55 Dose: 10 mg/hr, 10 mls/hr Documented By: Infusion: 03/15/25 22:40 Dose: 10 mg/hr, 10 mls/hr Documented By: Infusion: 03/15/25 22:25 Dose: 10 mg/hr, 10 mls/hr Documented By: Infusion: 03/15/25 22:10 Dose: 10 mg/hr, 10 mls/hr Documented By: Admin: 03/15/25 21:55 Dose: 10 mg/hr, 10 mls/hr Documented By: DT Heparin Sodium/Dextrose (Heparin In D5w Ivpb) 25,000 unit in 250 mls @ 20.412 mls/hr IV .[id number] [facility]; Protocol Stop: 03/30/25 02:29 Last Admin: 03/16/25 04:04 Dose: Not Given Documented By: DT Non-Admin Reason: Discontinued Lidocaine (Lidocaine 5% 1 Patch) 1 patch TOP X1 ONE Stop: 03/16/25 19:56 Last Admin: 03/16/25 20:14 Dose: 1 patch Documented By: CCT Metoprolol Succinate (Metoprolol Succinate Xl 25 Mg Tabcr) 25 mg PO QDAY [facility] Stop: 04/15/25 00:24 Last Admin: 03/16/25 09:49 Dose: 25 mg Documented By: Admin: 03/16/25 01:08 Dose: 25 mg Documented By: DT Metoprolol Succinate (Metoprolol Succinate Xl 25 Mg Tabcr) 75 mg PO X1 ONE Stop: 03/16/25 13:04 Last Admin: 03/16/25 14:25 Dose: 75 mg Documented By: WG Treatment here from me included: Cardizem bolus and drip, Rocephin, and Zithromax. Consultations Consultation(s) initiated? (list below): Yes Consultation #1 (Physician, Specialty, Details): I discussed the case with our hospitalist. About the presentation and exam and diagnostics and treatments here. And need of further care in the hospital. Will accept the patient. Diagnosis Upper Respiratory Differential Diagnosis: upper respiratory infection, viral infection, influenza, pharyngitis and other (Bronchitis, Pneumonia) Most likely diagnosis given after review of the tests above:: Acute Respiratory Failure with Hypoxia, Atrial Fibrillation with RvR, Pneumonia Admission Indicated Admission indicated?: indicated Explain why admission is indicated or not indicated:: Acute Respiratory Failure with Hypoxia, Atrial Fibrillation with RvR, Pneumonia Admission Request Was there a request for admission?: Yes Admission Attestation Admission request attestation: Discussed case with Hospitalist service regarding admission. Discussed patients ED course, exam findings, labs, and radiology results. The Hospitalist [agrees] to accept the patient for admission. Disposition Plan Disposition Plan: Admit Discharge Plan Plan Patient Disposition: Admit Acute Care w/in Hospital Problem List Clinical Impression: Acute respiratory failure with hypoxia, Atrial fibrillation with RVR, Pneumonia
--- NOTE | 2025-03-15 18:56 | XR_ITS ---
Examination: CT abdomen with intravenous contrast CT pelvis with intravenous contrast 2-D coronal reconstructions 2-D sagittal reconstructions Date and time of exam:March 15, 2025 10:20 PM INDICATIONS: Abdominal pain. Today CTDI: vol (mGy) 11.6 DLP: (mGycm) 745 Technique: Multiple axial sections of the abdomen and pelvis have been obtained. 64 slice high-resolution scanner used. 3 mm axial sections have been obtained, post intravenous injection 100 cc Isovue 370 2-D sagittal, coronal reconstructions obtained. Low dose protocols were performed. One or more of the following dose reduction techniques were used; automated exposure control, adjustment of the mA and/or KV according to patient size, use of iterative reconstruction technique. Findings: Large right pleural effusion Atelectasis versus pneumonia right base Extensive lymphadenopathy adjacent to the descending thoracic aorta The liver is irregular in contour, hepatosplenomegaly Contracted gallbladder Pancreas is not enlarged Extensive mesenteric pericaval periaortic lymphadenopathy Aorta normal size No bowel obstruction Extensive pelvic lymphadenopathy including prominent common femoral and external iliac lymph nodes Mild enlargement prostate Prominent osteopenia IMPRESSION: Hepatosplenomegaly Extensive abdominal pelvic mesenteric presumed metastatic lymphadenopathy, differential would also include Hodgkin's disease, non-Hodgkin's lymphoma
--- NOTE | 2025-03-15 18:56 | XR_ITS ---
Examination: CT brain head without contrast. 2-D sagittal coronal reconstructions Date and time of exam:March 15, 2025 10:20 PM Comparison February 26, 2009 INDICATIONS: Altered mental status today CTDI: vol (mGy):59.5 DLP: (mGycm):1162 Technique: Multiple CT axial sections of the brain have been obtained, 5 mm slice thickness. Contrast has not been administered. 2-D sagittal, coronal reconstructions have been obtained Low dose protocols were performed. One or more of the following dose reduction techniques were used; automated exposure control, adjustment of the mA and/or KV according to patient size, use of iterative reconstruction technique. Findings: No significant ventricular enlargement. Intra-axial or extra-axial hemorrhage density is not seen. No mass effect or midline shift Basal cisterns are not remarkable. Fourth ventricle is midline. Cranial vault intact. Impression: Negative for acute hemorrhage, mass effect or midline shift
--- NOTE | 2025-03-15 18:56 | XR_ITS ---
Examination: CTA chest with intravenous contrast 2-D reconstructions 3-D reconstructions, vascular Date and time of exam: March 15, 2025 at 2220 hours INDICATIONS: Chest pain shortness of breath today CTDI: vol (mGy) 17 DLP: (mGycm) 648 Technique: Multiple axial sections of the thorax have been obtained. 3 mm slice thickness, from below the hemidiaphragms to above the apices of the lungs. Mediastinal and lung density settings have been obtained. 2-D sagittal and coronal reconstructions. 3-D angiographic renderings, 3-D volume renderings, 3D post processing, vascular maximum intensity projections obtained. Contrast administered is 100 cc Isovue 370 intravenous. Low dose protocols were performed. One or more of the following dose reduction techniques were used; automated exposure control, adjustment of the mA and/or KV according to patient size, use of iterative reconstruction technique. Findings: Large right pleural effusion Extensive mediastinal lymphadenopathy, including anterior mediastinum, aortopulmonary window, high left periaortic, tracheobronchial and subcarinal as well as adjacent to the descending thoracic aorta Numerous bilateral subcentimeter pulmonary nodules Pneumonia in the right middle lobe and right lower lobe Mild enlargement cardiac contour Prominent osteopenia No pulmonary artery filling defects IMPRESSION: Large right pleural effusion Extensive mediastinal lymphadenopathy Differential would include metastatic disease, Hodgkin's disease, non-Hodgkin's lymphoma Bilateral subcentimeter pulmonary nodules Pneumonia in the right middle lobe and right lower lobe Negative for pulmonary artery emboli
[2025-03-15 19:04] LABS: Lactate (Lactic Acid) 1.6 mMol/L (0.4-2.0)
[2025-03-15 19:08] LABS: Basophils # (Auto) 0.1 Thou/mm3 (0.0-0.2); Basophils % (Auto) 0 % (0-2.5); Eosinophils # (Auto) 0.4 Thou/mm3 (0.0-0.5); Eosinophils % (Auto) 2 % (0-10); Hematocrit 43.1 % (41.0-53.0); Immature Granulocytes % (Auto) 3 % (0-0); Immature Granulocytes Auto 0.49 Thou/mm3 (0.00-0.00); Lymphocytes # (Auto) 2.2 Thou/mm3 (1.0-4.8); Lymphocytes % (Auto) 13 % (10-50); Mean Corpuscular HGB Conc 34.8 g/dl (31.0-37.0); Mean Corpuscular Hemoglobin 33.8 pg (25.0-35.0); Mean Corpuscular Volume 97 fL (80-100); Monocytes # (Auto) 1.5 Thou/mm3 (0.0-0.8); Monocytes % (Auto) 9 % (0-12); Neutrophils # (Auto) 12.1 Thou/mm3 (1.8-7.7); Neutrophils % (Auto) 73 % (37-80); Nucleated Red Blood Cell % 0 /100 WBC (0); Platelet Count 209 Thou/mm3 (140-440); RDW Standard Deviation 53.1 fL (35.1-43.9); Red Blood Count 4.44 Miln/mm3 (4.50-5.90); White Blood Count 16.6 Thou/mm3 (3.8-10.6)
[2025-03-15 19:11] VITALS: BP 129/85; PULSE 139
[2025-03-15] MEDS: DILTIAZEM INJ 5 MG/ML VIAL 5 ML 25 MG IV (19:11)
[2025-03-15 19:14] LABS: Sed Rate (ESR) 20 mm/hr (0-20)
[2025-03-15 19:21] LABS: INR 1.1 (0.9-1.3); Partial Thromboplastin Time 26.3 Seconds (22.0-36.0); Prothrombin Time 12.1 Seconds (9.0-12.2)
[2025-03-15 19:24] LABS: Base Excess, Venous 3 (-3-3); O2 Saturation, Venous 85 % (96-97); PCO2, Venous 43 mmHg (36-56); PO2, Venous 48 mmHg (15-58); pH, Venous 7.42 (7.33-7.66)
[2025-03-15 19:25] VITALS: BP 111/82; PULSE 99
[2025-03-15 19:25] LABS: B-Type Natriuretic Peptide 77 pg/mL (0-100)
[2025-03-15] MEDS: DILTIAZEM INJ 125 MG in DEXTROSE 5%-WATER 100 ML IV (19:25)
[2025-03-15] MEDS: cefTRIAXone/D5w 1gm IV premix 1 GM/50 ML BAG IV (19:30)
[2025-03-15] MEDS: AZITHROMYCIN 250 MG TABLET 500 MG PO (19:31)
[2025-03-15 19:37] LABS: Alanine Aminotransferase 10 U/L (10-49); Albumin, Serum 4.5 gm/dL (3.4-4.8); Albumin/Globulin Ratio 1.6 (1.2-2.2); Alkaline Phosphatase 198 U/L (46-116); Anion Gap 11 (7-16); Aspartate Amino Transferase 12 U/L (0-34); BUN/Creatinine Ratio 15 Ratio (12-20); Bilirubin,Direct 0.4 mg/dL (0.0-0.3); Bilirubin,Total 1.2 mg/dL (0.3-1.2); Blood Urea Nitrogen 16 mg/dL (9-23); C-Reactive Protein 2.4 mg/dL (0.0-0.9); Calcium 9.5 mg/dL (8.3-10.6); Calcium (Corrected) 9.5 mg/dL (8.5-10.1); Carbon Dioxide 25.3 mMol/L (20.0-31.0); Chloride 105 mMol/L (98-107); Creatinine (Component) 1.1 mg/dL (0.6-1.3); Estimated Creatinine Clearance 87.2 mL/min (>60); Free T4 (Free Thyroxine) 1.66 ng/dL (0.89-1.76); Globulin 2.9 gm/dL (2.3-3.5); Glucose 111 mg/dL (74-106); Magnesium 2.3 mg/dL (1.6-2.6); Osmolality,Calculated 283 (275-295); Potassium 4.4 mMol/L (3.4-5.1); Procalcitonin 0.05 ng/ml (0.0-0.49); Sodium 141 mMol/L (136-145); Total Protein 7.4 gm/dL (5.7-8.2); Troponin I < 0.020 ng/mL (0.0-0.045); eGFR > 60 See Note
[2025-03-15 19:38] LABS: D-Dimer 1020 ng/mL (<600)
[2025-03-15 20:08] LABS: COVID-19 Antigen (In-House) Negative (Negative)
[2025-03-15 20:21] LABS: Collection Type, Urine Clean Catch
[2025-03-15 20:34] LABS: Bacteria,Urine Rare; Bilirubin,Urine Negative (Negative); Blood,Urine Negative (Negative); Clarity,Urine Clear (Clear/Hazy); Color,Urine Yellow (Lt Yel-Yel); Glucose, Urine Negative (Negative); Ketones,Urine Negative (Negative); Leukocyte Esterase,Urine Positive (Negative); Nitrite,Urine Negative (Negative); Protein,Urine 1+ (Neg - Trace); RBC,Urine 5 /hpf (0-3); Specific Gravity,Urine 1.032 (1.001-1.035); Squamous Epithelial Cell,Urine 8 /hpf (0-5); WBC,Urine 12 /hpf (0-5)
[2025-03-15 20:36] LABS: Culture Indicated,Urine Yes
[2025-03-15 21:55] VITALS: BP 122/82; PULSE 114
[2025-03-15] MEDS: DILTIAZEM INJ 125 MG in DEXTROSE 5%-WATER 100 ML 10 MG IV (21:55)
[2025-03-15 23:33] VITALS: BP 129/76; PULSE 109
[2025-03-15] MEDS: DILTIAZEM INJ 5 MG/ML VIAL 5 ML 20 MG IV (23:33)
[2025-03-16] VITALS (21 sets, daily range): BP systolic 115–150; BP diastolic 68–107; PULSE 76–117; RESP 14–20; TEMP 36.2–37.2; O2SAT 94–99; BMI 33.3
--- NOTE | 2025-03-16 00:15 | ESHP_ITS ---
<Statement entered by Radha Garcia MD - 03/16/25 07:41> I Radha Garcia MD reviewed the note and agree with the resident's assessment & plan with exceptions as below. I have personally reviewed labs, imaging, home meds/prior records, examined the patient, formulated and discussed management plan with the IM team. A 64-year-old male with history of HFpEF, AF, HTN, PPM, moderate MR and lymphadenopathy presented to ED with neck swelling& cough noted to have leukocytosis, pulmonary infiltrates, mediastinal lymphadenopathy. CRP significantly elevated, D-dimers elevated however CTPA is negative for pulmonary embolism. Patient also noted to be in A-fib with RVR. Admitted for A-fib with RVR, community-acquired pneumonia, extensive lymphadenopathy concerning for metastatic disease. Patient has had lymphadenopathy for a year and has been getting infusions every 3 weeks from [facility]. Obtain medical records regarding LAD and infusion. Consult hematology/oncology. Continue with diltiazem infusion, start on metoprolol tartrate 25 mg twice daily. Continue Eliquis. Will treat empirically for community-acquired pneumonia with cefepime and azithromycin. If there is no prior definitive diagnosis of lymphadenopathy can consider repeat lymph node biopsy. Documentation for date of: 03/16/25 [facility] History of Present Illness Chief complaint: Shortness of breath neck swelling History of present illness: 64-year-old male with past medical history of atrial fibrillation on Eliquis, HFpEF [60-65%], hypertension, sick sinus syndrome status post pacemaker placement in 2007 who presented to the ED due to shortness of breath. Patient noticed a lump on his neck today and he also has been having cough with productive yellowish sputum for a few weeks originally came to the ER on Monday was given diuretics and antibiotic therapy however patient improved at the time of discharge from ED, however at home developed similar symptoms and came back to the ER today. Patient has lymphadenopathy that was diagnosed over a year ago and had workup done at [facility] and is currently going steroid and some medication infusion that the patient does not remember, however the neck lump he states is new and onset was today. Last infusion session was around 2 weeks ago. He also endorsed that today he felt like his heart was racing. At this time patient denies fever, chills, chest pain, orthopnea, PND, leg swelling, recent travel, sick contacts, changes in urinary or bowel habits. ED course: ED vitals: BP 170/88, pulse 96, saturating 95% on room air ED labs: Leukocytosis, D-dimer 1020, direct bilirubin 0.4, alk phos 188, CRP 2.4, UA shows some UTI. EKG shows A-fib with RVR, chest x-ray shows mild?moderate heart failure with right base pneumonia, soft tissue neck CT shows Extensive abnormal cervical supraclavicular lymphadenopathy suspicious for metastatic disease, Partially visualized extensive mediastinal lymphadenopathy, abdomen pelvis CT shows Hepatosplenomegaly, Extensive abdominal pelvic mesenteric presumed metastatic lymphadenopathy, differential would also include Hodgkin's disease, non-Hodgkin's lymphoma. Chest CTA negative for pulmonary embolism, right base pneumonia, right pleural effusion, extensive mediastinal lymphadenopathy, head CT negative for acute hemorrhage, mass effect, midline shift In the ED patient was started on diltiazem drip PMHx: As above SX Hx: Knee and back surgeries, pacemaker placement (last replaced 2 years ago) Social Hx: Denies cigarette use, drinks socially, smokes marijuana for nausea FH X: Unknown Review of Systems Review of Systems Systems Reviewed: All systems reviewed, normal except as documented Narrative Review of Systems: All 12 systems reviewed and found negative unless otherwise stated in the HPI. Exam Vital Signs Temp Pulse Resp BP Pulse Ox O2 Del Method 98.7 F 109 H 18 129/76 95 Room Air 03/15/25 18:22 03/15/25 23:33 03/15/25 18:22 03/15/25 23:33 03/15/25 18:22 03/15/25 18:22 Narrative Exam Physical Exam GENERAL: NAD, AAOx3 HEENT: Moist mucosa. Eyes open, symmetrical, & clear CARDIO: Heart RRR, no obvious murmurs PULM: Cough, dyspnea, decreased breath sounds on the right, mild left-sided crackles GI: Abdomen soft, nondistended, no pain on palpation. BSx4 SKIN/MSK/EXT: No wounds/rashes/edema/amputations, no pain on palpation. Pedal pulses present B/L NEURO: AAOx3, no focal neuro deficits, able to move all 4 extremities Results: Labs 03/15/25 18:51 03/15/25 18:51 Labs: Short CBC 03/15/25 Range/Units 18:51 WBC 16.6 H (3.8-10.6) Thou/mm3 Hgb 15.0 (13.5-16.0) g/dL Hct 43.1 (41.0-53.0) % Plt Count 209 (140-440) Thou/mm3 BMP 03/15/25 18:51 Sodium 141 Potassium 4.4 Chloride 105 Carbon Dioxide 25.3 BUN 16 Creatinine 1.1 Glucose 111 H Calcium 9.5 Cardiac Enzymes 03/15/25 Range/Units 18:51 Troponin I < 0.020 (0.0-0.045) ng/mL Liver Function 03/15/25 Range/Units 18:51 Total Bilirubin 1.2 (0.3-1.2) mg/dL Direct Bilirubin 0.4 H (0.0-0.3) mg/dL AST 12 (0-34) U/L ALT 10 (10-49) U/L Alkaline Phosphatase 198 H (46-116) U/L Albumin 4.5 (3.4-4.8) gm/dL Urine 03/15/25 Range/Units 20:15 Urine Color Yellow (Lt Yel-Yel) Urine Clarity Clear (Clear/Hazy) Urine pH 6.0 (5.0-7.0) Ur Specific Ewing 1.032 (1.001-1.035) Urine Protein 1+ A (Neg - Trace) Urine Glucose (UA) Negative (Negative) ABG Interpretation ABG results: 03/15/25 19:15 VBG pH 7.42 VBG pCO2 43 VBG pO2 48 VBG Base Excess 3 Quality Measures Quality Measures none Advance care planning discussed with:: patient and spouse Medications Home Medications and Allergies Home Medications ?Medication ?Instructions ?Recorded ?Confirmed ?Type apixaban 5 mg tablet (Eliquis) 5 mg PO QDAY 12/12/23 0 12/12/23 History digoxin 125 mcg (0.125 mg) tablet 0.125 mg PO QDAY 12/12/23 History Allergies Allergy/AdvReac Type Severity Reaction Status Date / Time No Known Allergies Allergy Verified 03/15/25 17:47 Visit Medications Acetaminophen (Acetaminophen 325 Mg Tablet) 650 mg PO Q6H PRN PRN Reason: Fever >99.5 Stop: 04/15/25 00:03 Acetaminophen (Acetaminophen 325 Mg Tablet) 1,000 mg PO Q6H PRN PRN Reason: PAIN SCALE 1-3 (mild Stop: 04/15/25 00:03 Albuterol/Ipratropium (Albuterol/Ipratropium (Duoneb) Rt Dominique 3 Ml Nebu) 3 ml INH Q2HR PRN PRN Reason: SHORTNESS OF BREATH OR WHEEZE Stop: 04/15/25 00:03 Albuterol/Ipratropium (Albuterol/Ipratropium (Duoneb) Rt Dominique 3 Ml Nebu) 3 ml INH Q6HRRT DARLENE Stop: 04/15/25 00:59 Azithromycin (Azithromycin 250 Mg Tablet) 500 mg PO QDAY [facility] Stop: 03/23/25 08:59 Diltiazem HCl 125 mg/ Dextrose 125 mls @ 10 mls/hr IV .[id number] [facility] Stop: 04/14/25 21:41 Last Infusion: 03/15/25 23:40 Dose: 10 mg/hr, 10 mls/hr Ceftriaxone Sodium/Dextrose (Rocephin/D5w 1gm Iv Premix) 1 gm in 50 mls @ 100 mls/hr IV QDAY [facility] Stop: 03/23/25 00:10 Ondansetron HCl (Ondansetron Inj 2 Mg/Ml Inj 2 Ml) 4 mg IVP Q6H PRN; Protocol PRN Reason: NAUSEA OR VOMITING Stop: 04/15/25 00:03 Sennosides (Senna Tablet) 1 tab PO QDAY [facility]; Protocol Stop: 04/15/25 08:59 Discontinued Medications Azithromycin (Azithromycin 250 Mg Tablet) 500 mg PO X1 ONE Stop: 03/15/25 19:13 Last Admin: 03/15/25 19:31 Dose: 500 mg Diltiazem HCl (Diltiazem Inj 5 Mg/Ml Vial 5 Ml) 25 mg IV X1 ONE Stop: 03/15/25 18:55 Last Admin: 03/15/25 19:11 Dose: 25 mg Diltiazem HCl (Diltiazem Inj 5 Mg/Ml Vial 5 Ml) 20 mg IV X1 ONE Stop: 03/15/25 23:00 Last Admin: 03/15/25 23:33 Dose: 20 mg Diltiazem HCl 125 mg/ Dextrose 125 mls @ 5 mls/hr IV .Q24H DARLENE Stop: 04/14/25 18:54 Last Infusion: 03/15/25 21:35 Dose: 5 mg/hr, 5 mls/hr Ceftriaxone Sodium/Dextrose (Rocephin/D5w 1gm Iv Premix) 1 gm in 50 mls @ 100 mls/hr IV X1 ONE Stop: 03/15/25 19:41 Last Infusion: 03/15/25 20:00 Dose: Infused Assessment & Plan Plan 64-year-old male with above stated past medical history who presented to the ED due to shortness of breath and a neck lump. #Community-acquired pneumonia #Right pleural effusion Patient with shortness of breath and yellow productive sputum as well as cough Came to the ED on Monday received 3 days of antibiotics however continued to worsen and came back to the ER Checks x-ray and chest CT shows right base pneumonia and right pleural effusion No fluids given as patient is nonseptic and has history of heart failure ? DuoNebs scheduled and as needed ? Ceftriaxone ? Azithromycin ? Follow-up blood cultures ? Follow-up urine cultures ? Consider consult ICU or IR for possible thoracentesis, will hold Eliquis at this time #Atrial fibrillation with RVR #History of CHF [60-65%] Patient endorsing palpitations and came to the ED with A-fib RVR rate~140s-150s Last echo November 2023: Normal LV size and function. Estimated LVEF 60-65%. Diastolic dysfunction present but cannot grade due to afib. RV size is moderately increased. Device wire visualized in the RV. Normal RV function Moderate TR eccentric. TV peak velocity could be underestimated. Estimated RVSP 38mmHg, including RAP. Severely enlarged LA and RA. Mild to Moderate MR. Dilated IVC. Patient used to take diuretics but stopped taking medications 2-3 months ago. currently on eliquis ? On Dilt drip, will dc in am ? Metoprolol XL 25 mg daily ? Home Eliquis on hold in view of possible thoracentesis ? Echo ordered ? Keep K>4, Mg>2 ? Telemetry ? Consider diuresis if needed ? I's and O's #Lymphadenopathy Has had lymphadenopathy for over a year however neck lymphadenopathy seems to be new, per the patient Neck supraclavicular lymphadenopathy onset 03/15/[address] shows Extensive abnormal cervical supraclavicular lymphadenopathy suspicious for metastatic disease, Partially visualized extensive mediastinal lymphadenopathy Went to [facility] to get work up done on lymphadenopathy is apperantly taking steroid with some medication infusions, he does not remember, last infusion 2 weeks ago ? Consider requesting records from [facility] #Hypertension ? Pending med reconciliation for the rest of his medications Health Maintenance: Disposition: Telemetry, A-fib RVR on dilt drip Fluids: None Feeding: N.p.o. Thrombo prophylaxis: heparin Gastric Ulcer prophylaxis: Not indicated CODE STATUS: Full code Case discussed with my attending Dr. Jose Cameron MD PGY-1 Disclaimer: Despite multiple revisions, due to the dictation software being used, the document bellow may not be free of grammatical errors including phonetic/typographic errors. However, this does not deter from our commitment to providing health care in the patient's best interest in mind.
[2025-03-16] MEDS: METOPROLOL SUCCINATE XL 25 MG TABCR PO ×2 (01:08→09:49)
[2025-03-16] MEDS: cefTRIAXone/D5w 1gm IV premix 1 GM/50 ML BAG IV ×2 (01:09→09:50)
[2025-03-16] MEDS: ALBUTEROL/IPRATROPIUM (Duoneb) RT SOL 3 ML NEBU INH ×4 (01:47→18:20)
[2025-03-16 05:14] LABS: Basophils # (Auto) 0.1 Thou/mm3 (0.0-0.2); Basophils % (Auto) 1 % (0-2.5); Eosinophils # (Auto) 0.4 Thou/mm3 (0.0-0.5); Eosinophils % (Auto) 3 % (0-10); Hematocrit 42.4 % (41.0-53.0); Hemoglobin 14.2 g/dL (13.5-16.0); Immature Granulocytes % (Auto) 3 % (0-0); Immature Granulocytes Auto 0.37 Thou/mm3 (0.00-0.00); Lymphocytes # (Auto) 1.6 Thou/mm3 (1.0-4.8); Lymphocytes % (Auto) 12 % (10-50); Mean Corpuscular HGB Conc 33.5 g/dl (31.0-37.0); Mean Corpuscular Volume 99 fL (80-100); Monocytes # (Auto) 1.2 Thou/mm3 (0.0-0.8); Monocytes % (Auto) 9 % (0-12); Neutrophils # (Auto) 9.5 Thou/mm3 (1.8-7.7); Neutrophils % (Auto) 72 % (37-80); Nucleated Red Blood Cell % 0 /100 WBC (0); Platelet Count 191 Thou/mm3 (140-440); RDW Standard Deviation 54.1 fL (35.1-43.9); White Blood Count 13.1 Thou/mm3 (3.8-10.6)
[2025-03-16 05:46] LABS: Alanine Aminotransferase 7 U/L (10-49); Albumin, Serum 4.1 gm/dL (3.4-4.8); Albumin/Globulin Ratio 1.5 (1.2-2.2); Alkaline Phosphatase 183 U/L (46-116); Anion Gap 7 (7-16); Aspartate Amino Transferase 11 U/L (0-34); BUN/Creatinine Ratio 13 Ratio (12-20); Blood Urea Nitrogen 13 mg/dL (9-23); Calcium 9.3 mg/dL (8.3-10.6); Calcium (Corrected) 9.3 mg/dL (8.5-10.1); Carbon Dioxide 28.6 mMol/L (20.0-31.0); Chloride 104 mMol/L (98-107); Estimated Creatinine Clearance 95.9 mL/min (>60); Globulin 2.7 gm/dL (2.3-3.5); Glucose 127 mg/dL (74-106); Magnesium 2.2 mg/dL (1.6-2.6); Osmolality,Calculated 281 (275-295); Potassium 4.1 mMol/L (3.4-5.1); Sodium 140 mMol/L (136-145); Thyroid Stimulating Hormone 1.35 uIU/mL (0.55-4.78); Total Protein 6.8 gm/dL (5.7-8.2); eGFR > 60 See Note
--- NOTE | 2025-03-16 06:26 | PC.NURSE ---
VITALS COMPLETED AND CHARTED UNDER THE DILTIAZEM TITRATION ON NOV.
[2025-03-16] MEDS: DILTIAZEM in D5W 125 MG 125 MG/125 ML BAG 10 MG IV ×2 (08:11→22:02)
[2025-03-16] MEDS: HEPARIN SOD INJ 5000 UNIT/ML VIAL SC (09:49)
[2025-03-16] MEDS: AZITHROMYCIN 250 MG TABLET 500 MG PO (09:49)
[2025-03-16] MEDS: SENNA TABLET 1 TAB PO (09:49)
--- NOTE | 2025-03-16 10:49 | PD.RESPRO ---
Documentation for date of: 03/16/25 Subjective Subjective Interval history: Patient seen and examined at bedside. Admitted overnight for acute hypoxic respiratory failure secondary to pneumonia. Patient currently on 4 L nasal cannula, SpO2 94, CTA shows large right pleural effusion, seen on CT, suspicion of exudative effusion. Patient has history of Castleman's disease, receives IV infusions in [place]. Patient's Eliquis being held since yesterday morning, will hold DVT prophylaxis, n.p.o. after midnight for ultrasound of lung by IR. Requested IR to assess ultrasound in a.m. if suspicion of loculated pleural effusion patient will benefit from chest tube placement. Patient is on IV diltiazem drip will be discontinued later today, started on metoprolol succinate twice daily and home dose digoxin Started on heparin drip will hold at midnight. Otherwise we will continue IV antibiotics, monitor closely Exam Vital Signs Temp Pulse Resp BP Pulse Ox O2 Del Method O2 Flow Rate 97.6 F 90 20 136/86 H 95 Nasal Cannula 4 03/16/25 08:31 03/16/25 09:49 03/16/25 08:31 03/16/25 09:49 03/16/25 08:31 03/16/25 08:31 03/16/25 08:31 Narrative Exam Physical Exam General: Awake and in no acute distress. Conversational and non-toxic appearing. HEENT: Normocephalic, atraumatic, mucous membranes moist. Patient on 4 L nasal cannula Heart: Regular rate and rhythm seems to be in sinus rhythm, no murmurs. Lungs: Decreased breath sounds right lung, mild crackles left lung Abdomen: Soft, nondistended, nontender, positive bowel sounds. ?No guarding or rebound tenderness. Neurologic: Alert and oriented x3, no gross neurological deficit, and patient able to move all 4 extremities. Extremities: No edema. Skin: No rash or ecchymoses. Objective Labs 03/18/25 05:35 03/18/25 05:35 Labs: Laboratory Results - last 24 hr 03/15/25 03/15/25 03/15/25 18:51 19:15 19:35 WBC 16.6 H RBC 4.44 L Hgb 15.0 Hct 43.1 MCV 97 MCH 33.8 MCHC 34.8 RDW Std Deviation 53.1 H Plt Count 209 Neut % (Auto) 73 Lymph % (Auto) 13 [place] % (Auto) 9 Eos % (Auto) 2 Baso % (Auto) 0 Neut # (Auto) 12.1 H Lymph # (Auto) 2.2 [place] # (Auto) 1.5 H Eos # (Auto) 0.4 Baso # (Auto) 0.1 Immature Gran # (Auto) 0.49 H Absolute Nucleated RBC 0.00 Immature Gran % 3 H Nucleated RBC % 0 ESR 20 PT 12.1 INR 1.1 APTT 26.3 D-Dimer 1020 H VBG pH 7.42 VBG pCO2 43 VBG pO2 48 VBG O2 Sat (Claribel) 85 L VBG Base Excess 3 Sodium 141 Potassium 4.4 Chloride 105 Carbon Dioxide 25.3 Anion Gap 11 BUN 16 Creatinine 1.1 Estim Creat Clear Calc 87.2 eGFR > 60 BUN/Creatinine Ratio 15 Glucose 111 H Calculated Osmolality 283 Lactic Acid 1.6 Calcium 9.5 Corrected Calcium 9.5 Magnesium 2.3 Total Bilirubin 1.2 Direct Bilirubin 0.4 H AST 12 ALT 10 Alkaline Phosphatase 198 H Troponin I < 0.020 C-Reactive Prot, Quant 2.4 H B-Natriuretic Peptide 77 Total Protein 7.4 Albumin 4.5 Globulin 2.9 Albumin/Globulin Ratio 1.6 Procalcitonin 0.05 TSH 2.70 Free T4 1.66 Ur Collection Type Urine Color Urine Clarity Urine pH Ur Specific [place] Urine Protein Urine Glucose (UA) Urine Ketones Urine Blood Urine Nitrite Urine Bilirubin Urine Urobilinogen (Auto) Ur Leukocyte Esterase Urine RBC Urine WBC Ur Squamous Epith Cells Urine Bacteria Ur Culture Indicated? SARS-CoV-2 Ag (Rapid) Negative 03/15/25 03/16/25 20:15 04:50 WBC 13.1 H RBC 4.30 L Hgb 14.2 Hct 42.4 MCV 99 MCH 33.0 MCHC 33.5 RDW Std Deviation 54.1 H Plt Count 191 Neut % (Auto) 72 Lymph % (Auto) 12 [place] % (Auto) 9 Eos % (Auto) 3 Baso % (Auto) 1 Neut # (Auto) 9.5 H Lymph # (Auto) 1.6 [place] # (Auto) 1.2 H Eos # (Auto) 0.4 Baso # (Auto) 0.1 Immature Gran # (Auto) 0.37 H Absolute Nucleated RBC 0.00 Immature Gran % 3 H Nucleated RBC % 0 ESR PT INR APTT D-Dimer VBG pH VBG pCO2 VBG pO2 VBG O2 Sat (Claribel) VBG Base Excess Sodium 140 Potassium 4.1 Chloride 104 Carbon Dioxide 28.6 Anion Gap 7 BUN 13 Creatinine 1.0 Estim Creat Clear Calc 95.9 eGFR > 60 BUN/Creatinine Ratio 13 Glucose 127 H Calculated Osmolality 281 Lactic Acid Calcium 9.3 Corrected Calcium 9.3 Magnesium 2.2 Total Bilirubin 1.0 Direct Bilirubin AST 11 ALT 7 L Alkaline Phosphatase 183 H Troponin I C-Reactive Prot, Quant B-Natriuretic Peptide Total Protein 6.8 Albumin 4.1 Globulin 2.7 Albumin/Globulin Ratio 1.5 Procalcitonin TSH 1.35 Free T4 Ur Collection Type Clean Catch Urine Color Yellow Urine Clarity Clear Urine pH 6.0 Ur Specific [place] 1.032 Urine Protein 1+ A Urine Glucose (UA) Negative Urine Ketones Negative Urine Blood Negative Urine Nitrite Negative Urine Bilirubin Negative Urine Urobilinogen (Auto) 2.0 Ur Leukocyte Esterase Positive Urine RBC 5 H Urine WBC 12 H Ur Squamous Epith Cells 8 H Urine Bacteria Rare Ur Culture Indicated? Yes SARS-CoV-2 Ag (Rapid) ABG Interpretation ABG results: 03/15/25 19:15 VBG pH 7.42 VBG pCO2 43 VBG pO2 48 VBG Base Excess 3 Quality Measures Quality Measures none Advance care planning discussed with:: patient Assessment & Plan Assessment Current Active Medications: Generic Name Dose Route Start Last Admin Trade Name Freq PRN Reason Stop Dose Admin Acetaminophen 650 mg 03/16/25 00:04 Acetaminophen 325 Mg Tablet PO 04/15/25 00:03 Q6H PRN Fever >99.5 Acetaminophen 1,000 mg 03/16/25 09:16 Acetaminophen 500 Mg Tablet PO 04/15/25 00:03 Q6H PRN PAIN SCALE 1-3 (mild Albuterol/Ipratropium 3 ml 03/16/25 00:04 Albuterol/Ipratropium (Duoneb) Rt Dominique 3 Ml Nebu INH 04/15/25 00:03 Q2HR PRN SHORTNESS OF BREATH OR WHEEZE Albuterol/Ipratropium 3 ml 03/16/25 01:00 03/16/25 07:08 Albuterol/Ipratropium (Duoneb) Rt Dominique 3 Ml Nebu INH 04/15/25 00:59 3 ml Q6HRRT DARLENE Administration Azithromycin 500 mg 03/16/25 09:00 03/16/25 09:49 Azithromycin 250 Mg Tablet PO 03/23/25 08:59 500 mg QDAY DARLENE Administration Heparin Sodium (Porcine) 5,000 unit 03/16/25 09:00 03/16/25 09:49 Heparin Sod Inj 5000 Unit/Ml Vial SC 03/30/25 08:59 5,000 unit Q8HR DARLENE Administration Ceftriaxone Sodium/Dextrose 1 gm in 50 mls @ 100 mls/hr 03/16/25 00:11 03/16/25 09:50 Rocephin/D5w 1gm Iv Premix IV 03/23/25 00:10 100 mls/hr QDAY DARLENE Administration Diltiazem HCl 125 mg in 125 mls @ 10 mls/hr 03/16/25 08:15 03/16/25 08:11 Diltiazem In D5w 125 Mg IV 04/15/25 06:00 10 mls/hr .[id number] DARLENE Administration Metoprolol Succinate 25 mg 03/16/25 00:25 03/16/25 09:49 Metoprolol Succinate Xl 25 Mg Tabcr PO 04/15/25 00:24 25 mg QDAY DARLENE Administration Ondansetron HCl 4 mg 03/16/25 00:04 Ondansetron Inj 2 Mg/Ml Inj 2 Ml IVP 04/15/25 00:03 Q6H PRN NAUSEA OR VOMITING Protocol Sennosides 1 tab 03/16/25 09:00 03/16/25 09:49 Senna Tablet PO 04/15/25 08:59 1 tab QDAY DARLENE Administration Protocol Plan Assessment and plan: Summary: Mr Pena is a 64-year-old male past medical history of Atrial fibrillation on Eliquis, HFpEF (60-65%), hypertension, sick sinus syndrome status post pacemaker placement in 2007 and ?Multicentric Castleman's disease who presented to the ED due to shortness of breath and a neck lump. Patient admitted to the hospital for further management of acute hypoxic respiratory failure secondary to pneumonia, right pleural effusion and A-fib with RVR. #Acute hypoxic respiratory failure secondary to #Community-acquired pneumonia, failed outpatient treatment #Right pleural effusion, ?parapneumonic effusion Patient with shortness of breath and yellow productive sputum as well as cough Came to the ED on Monday received 3 days of antibiotics however continued to worsen and came back to the ER Checks x-ray and chest CT shows right base pneumonia and right pleural effusion Plan: ? DuoNebs scheduled and as needed ? IV ceftriaxone and azithromycin ? Follow-up blood cultures ? Follow-up urine cultures ? Follow-up cocci results ? N.p.o. after midnight, scheduled for thoracentesis in a.m. ? Ultrasound assessment by interventional radiology in a.m. ? If loculated effusion is noted on ultrasound, patient will benefit from chest tube placement ? Pleural fluid studies ordered, serum LDH in a.m. ordered, cytology form filled #Atrial fibrillation with RVR #Heart failure with preserved ejection fraction, EF 60 to 65%, November 2023, diastolic heart failure #Status post pacemaker, history of sick sinus syndrome Patient endorsing palpitations and came to the ED with A-fib RVR rate~140s-150s Last echo November 2023: Normal LV size and function. Estimated LVEF 60-65%. Diastolic dysfunction present but cannot grade due to afib. RV size is moderately increased. Device wire visualized in the RV. Normal RV function Moderate TR eccentric. TV peak velocity could be underestimated. Estimated RVSP 38mmHg, including RAP. Severely enlarged LA and RA. Mild to Moderate MR. Dilated IVC. Patient used to take diuretics but stopped taking medications 2-3 months ago. currently on eliquis ? On Dilt drip, will discontinue as per cardiology recommendations at midnight ? Metoprolol XL 100 mg twice daily ? Resume home dose digoxin 0.125 mg daily ? Home Eliquis on hold in view of possible thoracentesis ? Heparin GGT, will hold heparin at midnight ? Echo ordered to assess LV/RV function ? Keep K>4, Mg>2 ? Telemetry ? Hold diuresis, currently euvolemic ? I's and O's ? Cardiology consulted, appreciate recommendations #Lymphadenopathy #?Castleman disease Patient has been worked up outpatient with [facility] for extensive lymphadenopathy, reported that he was ruled out for cancer. On medication review patient was prescribed medications under diagnosis of Castleman disease by Dr. Venancio Gil heme-oncologist and [facility] Neck supraclavicular lymphadenopathy onset 03/15/2025. 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 Patient being managed by [facility] heme oncologist Dr. Venancio Gil. ?Will obtain records from [facility] #Hypertension #GERD #Hyperuricemia Patient on metoprolol tartrate 100 twice daily, lisinopril 20 mg daily - Will resume as appropriate. Health Maintenance: Disposition: Telemetry, pending thoracentesis Fluids: None Feeding: Cardiac diet, n.p.o. after midnight Thrombo prophylaxis: heparin drip, hold at midnight Gastric Ulcer prophylaxis: P.o. Protonix CODE STATUS: Full code Case discussed with Attending Dr. [place]. Pramod Sales PGY1 Disclaimer: This note was dictated by speech recognition. Minor errors in stone and plate preparer apprentice may be present due to voice recognition software. Attending Provider Attestation/Addendum 64-year-old male with multiple comorbidities including atrial fibrillation on Eliquis, heart failure with preserved EF with EF 60-65%, hypertension and sick sinus syndrome status post pacemaker placement and Castleman disease who presented with shortness of breath found to have acute hypoxic respiratory failure secondary to community acquired pneumonia and right pleural effusion likely parapneumonic in nature. As a result, plan to continue IV antibiotic therapy including Rocephin and azithromycin and plan for a thoracentesis. In addition, patient also noted to have A-fib with RVR with acute CHF exacerbation for which initially required diltiazem drip however we will discontinue and start patient on metoprolol with Eliquis.I reviewed above note and agree with findings and plans. I have also personally examined the patient with medicine team and went over assessment and plan with medical team including agriculture internship and resident physician.
--- NOTE | 2025-03-16 12:45 | PC.SS ---
This is 64-year-old, , male who presented to the ED due to suffering from shortness of breath. Patient appeared alert and oriented to self, place and situation. Patient was pleasant, his mood and behavior were ordinary. Patient reported that he resides at home. He is independent with ADLs, no DME use. Patient assigned his , Luana, as his medical decision maker. Patient reported that his PCP is Dr. Broussard and cafeteria attendant is Dr. Marquez. When medically clear, patient will return home; Luana will provide transportation. Discharge plan is to return home, family will provide transportation. Next of kin: Luana Chávez., .
--- NOTE | 2025-03-16 13:29 | PD.RESCONSUL ---
HPI Data of Consult Requesting Physician: Radha Garcia MD Admitting Provider: Radha Garcia MD Attending Provider: Radha Garcia MD Primary Care Provider: Physician No Primary/Family Consult Narrative History of present illness: CC: Shortness of Breath Patient is a 63-year-old male with a past medical history of hypertension, chronic atrial fibrillation, status post AV jame ablation for tachycardia, status post maker implantation with VV I pacemaker, gout, negative coronary angiogram, concern for extensive lymphadenopathy, significant weight loss, who followed up at [facility] with a apparent negative biopsy that was inconclusive. 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 Patient presented to the emergency room via EMS with a chief complaint of cough ongoing for 1 month and enlarged mass that is fluctuant soft and located near the left clavicular area. Patient decided to follow-up with the emergency room as shortness of breath worsen despite starting amoxicillin clodronate 125 prescribed by the emergency room. Patient denied lower peripheral edema, orthopnea present, denied paroxysmal nocturnal dyspnea. Previous ejection fraction per chart review noted to be 60 to 65%. Patient denied past medical history of heart failure. Negative for chest pressure or palpitations. Saturating well on 4 L nasal cannula, at spO95%. Patient is still Afib w/ rvr with ranges from 110-140s. Metoprolol XL 100 mg BID and Digoxin 125 mg PO. If vitals stable, continue Diltiazem drip until tomorrow morning. Continue heparin drip and hold after midnight given patient Afib ED vitals: BP 170/88, pulse 96, saturating 95% on room air ED labs: Leukocytosis, D-dimer 1020, direct bilirubin 0.4, alk phos 188, CRP 2.4, UA shows some UTI. EKG shows A-fib with RVR, chest x-ray shows mild?moderate heart failure with right base pneumonia, soft tissue neck CT shows Extensive abnormal cervical supraclavicular lymphadenopathy suspicious for metastatic disease, Partially visualized extensive mediastinal lymphadenopathy, abdomen pelvis CT shows Hepatosplenomegaly, Extensive abdominal pelvic mesenteric presumed metastatic lymphadenopathy, differential would also include Hodgkin's disease, non-Hodgkin's lymphoma. Chest CTA negative for pulmonary embolism, right base pneumonia, right pleural effusion, extensive mediastinal lymphadenopathy, head CT negative for acute hemorrhage, mass effect, midline shift In the ED patient was started on diltiazem drip PMHx: As above Home Medication: Metoprolol Tartrate 100 mg BID, Digoxin 125 mcg qday , Lisinopril 20 mg PO Qday , Sylvant (Siltuximab), Methylprednisolone 4 mg, Pantoprazole , Allopurinol SX Hx: Knee and back surgeries, pacemaker placement (last replaced 2 years ago) Social Hx: Denies cigarette use, drinks socially, smokes marijuana for nausea FH X: Unknown cc:: cc: Radha Garcia MD Review of Systems Review of Systems Narrative Review of Systems: General appearance: NO weight change, NO fatigue, NO weakness, NO fever, NO chills, NO night sweats, No cough Skin: NO rash, NO itching, NO sores, NO moles HEENT: NO Trauma, NO nausea, NO vomiting, NO visual changes, NO blurry vision, NO double vision, NO tinnitus, NO vertigo, NO ear discharge, NO rhinorrhea, NO stuffiness, NO sneezing, NO allergy, NO epistaxis. NO Hoarseness, NO sore throat, NO swollen neck. Cardiac: NO Palpitations, YES dyspnea on exertion, YES orthopnea, NO paroxysmal nocturnal dyspnea, NO edema Respiratory: YES Shortness of Breath, NO Wheezing, YES Cough, NO Sputum, NO hemoptysis GI:NO appetite, NO nausea, NO vomiting, NO dysphagia, NO changes in bowel frequency, NO stool color, NO diarrhea, NO constipation, NO hemetemesis, NO hemorrhoids, NO melena, NO hematechezia, NO abdominal pain, NO jaundice Renal: NO frequency, NO hesitancy, NO urgency, NO hematuria, NO nocturia, NO incontinence MSK: NO muscle weakness, NO gout, NO arthritis, NO muscle stiffness Neuro: NO headaches, NO tremors, NO weakness, NO paralysis, NO seizures, NO loss of consciousness, NO numbness. Hem: NO anemia, NO easy bruising/bleeding, NO petechiae, NO purpura Endo: NO heat/cold intolerance, NO excessive sweating, NO polyuria, NO polydipsia, NO polyphagia, NO thyroid problems, NO diabetes Pysch: NO mood, NO anxiety, NO depression Exam Vital Signs Temp Pulse Resp BP Pulse Ox O2 Del Method O2 Flow Rate 98.7 F 80 18 127/80 95 Nasal Cannula 4 03/16/25 12:00 03/16/25 12:35 03/16/25 12:35 03/16/25 12:00 03/16/25 12:35 03/16/25 12:00 03/16/25 12:35 Narrative Exam General Appearance: Alert & Oriented X3, well-nourished male who is lying in bed in sitting up in bed with no increased work of breathing noted, on 4 L NC HEENT: Skull symmetrical and atraumatic. Conjunctivae pale pink and moist. Pupils equal, round, reactive to light and accommodation (PERRL). External ear without lesion or discharge. Soft round, fluctuant mass appreciated near left clavicle region, nontender to touch, no erythema noted, not warm to touch. Cardio: Normal Rate and Rhythm with S1 and S2 heart sounds. No murmurs or extra heart sounds auscultated. No bruits on carotid auscultation. No peripheral edema or cyanosis. Lungs: Symmetric with good expansion. Chest and back non-tender. Decreased vesicular breath sounds noted over right lung with crackles noted. Abdomen: Non-tender, Non-distended, Normal Reactive Bowel Sounds Neuro: Alert, cooperative, oriented to person, place, and time. Speech clear. CN grossly intact. Upper motor strength 5/5 and Lower motor strength 5/5. Sensation intact. Results Labs 03/17/25 03:48 03/17/25 03:48 Labs: Short CBC 03/15/25 03/16/25 Range/Units 18:51 04:50 WBC 16.6 H 13.1 H (3.8-10.6) Thou/mm3 Hgb 15.0 14.2 (13.5-16.0) g/dL Hct 43.1 42.4 (41.0-53.0) % Plt Count 209 191 (140-440) Thou/mm3 BMP 03/15/25 03/16/25 18:51 04:50 Sodium 141 140 Potassium 4.4 4.1 Chloride 105 104 Carbon Dioxide 25.3 28.6 BUN 16 13 Creatinine 1.1 1.0 Glucose 111 H 127 H Calcium 9.5 9.3 Cardiac Enzymes 03/15/25 Range/Units 18:51 Troponin I < 0.020 (0.0-0.045) ng/mL Liver Function 03/15/25 03/16/25 Range/Units 18:51 04:50 Total Bilirubin 1.2 1.0 (0.3-1.2) mg/dL Direct Bilirubin 0.4 H (0.0-0.3) mg/dL AST 12 11 (0-34) U/L ALT 10 7 L (10-49) U/L Alkaline Phosphatase 198 H 183 H (46-116) U/L Albumin 4.5 4.1 (3.4-4.8) gm/dL Urine 03/15/25 Range/Units 20:15 Urine Color Yellow (Lt Yel-Yel) Urine Clarity Clear (Clear/Hazy) Urine pH 6.0 (5.0-7.0) Ur Specific [place] 1.032 (1.001-1.035) Urine Protein 1+ A (Neg - Trace) Urine Glucose (UA) Negative (Negative) ABG Interpretation ABG results: 03/15/25 19:15 VBG pH 7.42 VBG pCO2 43 VBG pO2 48 VBG Base Excess 3 Quality Measures Quality Measures none Advance care planning discussed with:: patient Medications Home Medications and Allergies Home Medications ?Medication ?Instructions ?Recorded ?Confirmed ?Type apixaban 5 mg tablet (Eliquis) 5 mg PO BID 12/12/23 03/16/25 History digoxin 125 mcg (0.125 mg) tablet 0.125 mg PO QDAY 12/12/23 03/16/25 History allopurinol 300 mg tablet 300 mg PO DAILY 03/16/25 03/16/25 History lisinopril 20 mg tablet 20 mg PO DAILY 03/16/25 03/16/25 History methylprednisolone 4 mg tablets in 4 mg PO DAILY 03/16/25 03/16/25 History a dose pack metoprolol tartrate 100 mg tablet 100 mg PO BID 03/16/25 03/16/25 History pantoprazole 40 mg tablet,delayed 40 mg PO DAILY 03/16/25 03/16/25 History release Allergies Allergy/AdvReac Type Severity Reaction Status Date / Time No Known Allergies Allergy Verified 03/15/25 17:47 Visit Medications Acetaminophen (Acetaminophen 325 Mg Tablet) 650 mg PO Q6H PRN PRN Reason: Fever >99.5 Stop: 04/15/25 00:03 Acetaminophen (Acetaminophen 500 Mg Tablet) 1,000 mg PO Q6H PRN PRN Reason: PAIN SCALE 1-3 (mild Stop: 04/15/25 00:03 Albuterol/Ipratropium (Albuterol/Ipratropium (Duoneb) Rt Dominique 3 Ml Nebu) 3 ml INH Q2HR PRN PRN Reason: SHORTNESS OF BREATH OR WHEEZE Stop: 04/15/25 00:03 Albuterol/Ipratropium (Albuterol/Ipratropium (Duoneb) Rt Dominique 3 Ml Nebu) 3 ml INH Q6HRRT [facility] Stop: 04/15/25 00:59 Last Admin: 03/16/25 12:35 Dose: 3 ml Azithromycin (Azithromycin 250 Mg Tablet) 500 mg PO QDAY [facility] Stop: 03/23/25 08:59 Last Admin: 03/16/25 09:49 Dose: 500 mg Digoxin (Digoxin 0.125 Mg Tablet) 0.125 mg PO QDAY [facility] Stop: 04/15/25 13:14 Ceftriaxone Sodium/Dextrose (Rocephin/D5w 1gm Iv Premix) 1 gm in 50 mls @ 100 mls/hr IV QDAY [facility] Stop: 03/23/25 00:10 Last Admin: 03/16/25 09:50 Dose: 100 mls/hr Diltiazem HCl (Diltiazem In D5w 125 Mg) 125 mg in 125 mls @ 10 mls/hr IV .[id number] [facility] Stop: 03/16/25 23:59 Last Admin: 03/16/25 08:11 Dose: 10 mls/hr Heparin Sodium/Dextrose (Heparin In D5w Ivpb) 25,000 unit in 250 mls @ 10 mls/hr IV .Q24H [facility]; Protocol Stop: 03/30/25 13:14 Metoprolol Succinate (Metoprolol Succinate Xl 25 Mg Tabcr) 100 mg PO BID [facility] Stop: 04/15/25 20:59 Ondansetron HCl (Ondansetron Inj 2 Mg/Ml Inj 2 Ml) 4 mg IVP Q6H PRN; Protocol PRN Reason: NAUSEA OR VOMITING Stop: 04/15/25 00:03 Sennosides (Senna Tablet) 1 tab PO QDAY [facility]; Protocol Stop: 04/15/25 08:59 Last Admin: 03/16/25 09:49 Dose: 1 tab Discontinued Medications Acetaminophen (Acetaminophen 325 Mg Tablet) 1,000 mg PO Q6H PRN PRN Reason: PAIN SCALE 1-3 (mild Stop: 04/15/25 00:03 Azithromycin (Azithromycin 250 Mg Tablet) 500 mg PO X1 ONE Stop: 03/15/25 19:13 Last Admin: 03/15/25 19:31 Dose: 500 mg Bumetanide (Bumetanide Inj 0.25 Mg/Ml Vial 4 Ml) 1 mg IVP QDAY [facility] Stop: 04/15/25 08:59 Diltiazem HCl (Diltiazem Inj 5 Mg/Ml Vial 5 Ml) 25 mg IV X1 ONE Stop: 03/15/25 18:55 Last Admin: 03/15/25 19:11 Dose: 25 mg Diltiazem HCl (Diltiazem Inj 5 Mg/Ml Vial 5 Ml) 20 mg IV X1 ONE Stop: 03/15/25 23:00 Last Admin: 03/15/25 23:33 Dose: 20 mg Heparin Sodium (Porcine) (Heparin Sod Inj 5000 Unit/Ml Vial) 8,000 unit IV X1 ONE; Protocol Stop: 03/16/25 02:17 Last Admin: 03/16/25 04:04 Dose: Not Given Heparin Sodium (Porcine) (Heparin Sod Inj 5000 Unit/Ml Vial) 5,000 unit SC Q8HR [facility] Stop: 03/30/25 05:59 Heparin Sodium (Porcine) (Heparin Sod Inj 5000 Unit/Ml Vial) 5,000 unit SC Q8HR [facility] Stop: 03/30/25 08:59 Last Admin: 03/16/25 09:49 Dose: 5,000 unit Heparin Sodium (Porcine) (Heparin Sod Inj 5000 Unit/Ml Vial) 4,000 unit IV X1 ONE; Protocol Stop: 03/16/25 13:04 Diltiazem HCl 125 mg/ Dextrose 125 mls @ 5 mls/hr IV .Q24H [facility] Stop: 04/14/25 18:54 Last Infusion: 03/15/25 21:35 Dose: 5 mg/hr, 5 mls/hr Ceftriaxone Sodium/Dextrose (Rocephin/D5w 1gm Iv Premix) 1 gm in 50 mls @ 100 mls/hr IV X1 ONE Stop: 03/15/25 19:41 Last Infusion: 03/15/25 20:00 Dose: Infused Diltiazem HCl 125 mg/ Dextrose 125 mls @ 10 mls/hr IV .[id number] [facility] Stop: 04/15/25 06:00 Last Infusion: 03/16/25 06:25 Dose: 10 mg/hr, 10 mls/hr Heparin Sodium/Dextrose (Heparin In D5w Ivpb) 25,000 unit in 250 mls @ 20.412 mls/hr IV .[id number] [facility]; Protocol Stop: 03/30/25 02:29 Last Admin: 03/16/25 04:04 Dose: Not Given Metoprolol Succinate (Metoprolol Succinate Xl 25 Mg Tabcr) 25 mg PO QDAY [facility] Stop: 04/15/25 00:24 Last Admin: 03/16/25 09:49 Dose: 25 mg Metoprolol Succinate (Metoprolol Succinate Xl 25 Mg Tabcr) 75 mg PO X1 ONE Stop: 03/16/25 13:04 Assessment & Plan Plan Patient is a 63-year-old male with a past medical history of hypertension, chronic atrial fibrillation, status post AV jame ablation for tachycardia, status post maker implantation with VV I pacemaker, gout, negative coronary angiogram, concern for extensive lymphadenopathy, significant weight loss, who followed up at [facility] with a apparent negative biopsy that was inconclusive. 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 Patient was admitte don 03/16/2025 for acute hypoxic respiratory failure secondary to large right pleaural effusion and Afib w/ rvr #Atrial fibrillation with RVR #Atrial fibrillation #Status post ablation #status post pacemaker Patient has a past medical history of atrial fibrillation previously rate controlled on metoprolol titrate 100 mg p.o. twice daily and digoxin 0.125 mg p.o. daily. Patient arrived with atrial fibrillation with RVR was started on the drip. This morning on monitoring tech patient noted to have a heart rate between 110 and 130 which fluctuated still A-fib. A-fib with RVR likely triggered by large right pleural effusion likely superimposed with pneumonia. Negative for PE. EKG on admission noted with A-fib with RVR, heart rate 140, QTc 451, QRS past 91. Troponin within normal limits. Plan -Echo stat -Continue heparin drip, discontinue at midnight prior to procedure -Continue diltiazem drip until 03/17/2020 morning, continue to monitor patient's heart rate and blood pressure -Resume digoxin 0.125 mg p.o. once daily, obtain digoxin levels -Start new medication metoprolol XL 100 mg twice daily, monitor blood pressure and heart rate - Start metoprolol titrate 100 mg twice daily - Potassium levels greater than 4 and magnesium greater than 2 continue to monitor - quality assurance monitor chassis continue #Acute hypoxic respiratory failure, on nasal cannula #Large, right pleural effusion #Superimposed pneumonia, likely community-acquired #Leukocytosis Patient presented with a large right sided pleural effusion, given over one 1 month history of shortness of breath concern for malignancy versus worsening pneumonia given immunosuppressed on Sylvant and steriods versus heart failure as symptoms overlap may overlap with pleural effusion, pending echo Diagnostics CT head negative Chest CTA (03/15/2025): Bilateral subcentimeter pulmonary nodules, pneumonia in the right middle lobe and right lower lobe, negative for PE, extensive mediastinal lymphadenopathy, large right pleural effusion. Chest x-ray: Mild to moderate heart failure, prominent vascular congestion with Gerardo hilar basilar edema, suspicious for superimposed pneumonia in the right base. Plan -Ceftriaxone and azithromycin (03/16/2025) - DuoNebs - Blood cultures pending urine culture pending -Cocci pending -Plan for thoracentesis with cytology, ultrasound-guided #Left clavicular suspicious mass #Lymphadenopathy #Castleman's disease Per patient history, diagnosed with Castleman's disease on Sylvant infusion and oral steriods. Per chart review, patient was referred to [facility] for lymphadenopathy, or biopsy was performed and results were negative for malignancy, patient was subsequently diagnosed with Castleman's disease. Concern for worsening suspicious mass that is fluctuant nontender and uniform at the supra clavicular region. Echo (12/10/2024): Normal LV size and function. Estimated LVEF 60-65%. Diastolic dysfunction present but cannot grade due to afib.RV size is moderately increased. Device wire visualized in the RV. Normal RV function Moderate TR eccentric. TV peak velocity could be underestimated. Estimated RVSP 38mmHg, including RAP. Severely enlarged LA and RA. Mild to Moderate MR. Dilated IVC. Soft tissue neck CT (03/15/2025): Extensive abnormal cervical supraclavicular lymphadenopathy suspicious for metastatic disease. Partially visualized extensive mediastinal lymphadenopathy Plan -Primary team following - Requesting records from [facility] #Hypertension Home medication of lisinopril consider holding given metoprolol succinate 100 mg twice daily, continue to monitor Plan -Home medication of lisinopril #Hyperuremia/gout Home medication of allopurinol, denied any tenderness or pain to musculoskeletal Plan -Consider resuming allopurinol given no VIOLETA Disposition: admitted for acute hypoxic respiratory failure and r. pleural effusion. Cardiology following for Afib w/ rvr Fluids: None Feeding: Cardiac diet, n.p.o. after midnight Thrombo prophylaxis: heparin drip, hold at midnight Gastric Ulcer prophylaxis: P.o. Protonix CODE STATUS: Full code - The patient's plan was discussed with attending Dr. Moi Lu MD PGY1 Internal Medicine Attending Provider Attestation/Addendum I have personally seen and examined the patient separately on the above date of service and discussed the plan of care with the resident. I reviewed the resident Dr. Samira Lu consultation progress note and agree with the resident findings and plan in the note above and have also edited the documentation to reflect my findings and plan. 63-year-old male patient with a past medical history of Castleman disease on methylprednisone, siltuximab or Sylvant, chronic atrial fibrillation status post AV jame ablation status post pacemaker placement, HFpEF with an EF of 55 to 60%, essential hypertension, negative CAD workup presented to the emergency department for further evaluation of cough with some shortness of breath along with enlarged neck mass. Patient has been having cough along with productive sputum for a couple of weeks and he did see his primary doctor who started him on antibiotic therapy and had also had a ED visit but patient continued to have symptoms. In the emergency department initial vitals showed blood pressure 170/88 with meters mercury, heart rate of 140 /min, saturating 95% on room air, afebrile labs showed WBC elevated at 16.6, hemoglobin of 15, platelets of 209, BUN of 16 creatinine of 1.1, rest of BMP and LFTs normal except for alk phos of 198 troponin negative at 0.02 and UA was negative. CTA negative for PE but showed right base pneumonia along with right pleural effusion extensive mediastinal lymphadenopathy. CT head was negative. CT abdomen and pelvis also showed extensive lymphadenopathy. Soft tissue neck showed extensive abnormal cervical supraclavicular lymphadenopathy also.. EKG showed atrial fibrillation with RVR. Assessment and plans: 1. Atrial fibrillation with RVR 2. Left lateral mass -extensive lymphadenopathy with history of Castleman disease 3. Community-acquired pneumonia 4. HFpEF with EF of 60 to 65% 5. Right pleural effusion-large 6. Castleman disease methylprednisolone as well as Chin or siltuximab 7. AV jame ablation status post pacemaker 8. SCC left tension 9. Negative coronary angiogram previously 10. Morbid obesity Patient presented with atrial fibrillation with RVR and possible inciting event is with underlying pneumonia along with loculated pleural effusion. He does have a history of HFpEF with EF of 60 to 65%. Echo in November 2024 showed Normal LV size and function. Estimated LVEF 60-65%. Diastolic dysfunction present but cannot grade due to afib.RV size is moderately increased. Device wire visualized in the RV. Normal RV function Moderate TR eccentric. TV peak velocity could be underestimated. Estimated RVSP 38mmHg, including RAP. Severely enlarged LA and RA. Mild to Moderate MR. Dilated IVC. For his paroxysmal atrial fibrillation with RVR patient was started on diltiazem drip and recommend to continue the same for now. His home medications include metoprolol tartrate 100 mg twice daily as well as digoxin 125 mcg daily and patient states that he takes taking the medication regularly recommend to change metoprolol tartrate to metoprolol XL 100 mg twice daily as well as restart digoxin 105 mcg daily for now. Continue diltiazem drip. Eliquis on hold for possible right thoracocentesis in the continue with heparin drip for now. Keep patient greater than 4 magnesium greater than 2.0 at all times. Patient does have a history of HFpEF as noted above and have also has right-sided pleural effusion. His acute hypoxic respiratory failure is mostly secondary to underlying pneumonia with possible TF heart failure exacerbation. Patient is not on Lasix at the present point of time and appears to be not having any significant fluid overload. BNP was only 77 patient does have obesity and recommend to continue to monitor input output, daily weights and gram sodium diet. Patient does have a pacemaker secondary to AV jame ablation with a history of the chronic A-fib and recommend to obtain the pacemaker information and have it interrogated during the admission to evaluate for any arrhythmias apart from atrial fibrillation and also to evaluate the burden of the atrial fibrillation. He does have possible underlying pneumonia for which he is also started on antibiotic by the primary team. Regarding his left leg mass he did neck soft tissue showed extensive lymphadenopathy. Patient does have a history of Castleman disease on Sylvant or siltuximab along with methylprednisolone. CT abdomen and pelvis and CT chest also showed extensive lymphadenopathy. Further management as per primary team and patient does follow at [facility] for these infusions regularly. Management of rest of the medical conditions as per primary team and other consultants. Thank you for the consult and allowing me to participate in the care of the patient. Cardiology will continue to follow. Frank Prater M.D. Interventional Cardiology
[2025-03-16] MEDS: Heparin/D5w 25K 250 ML Ivpb 25,000 UNIT/250 ML BAG 10 UNIT IV (14:18)
[2025-03-16] MEDS: HEPARIN SOD INJ 5000 UNIT/ML VIAL 4000 UNIT IV (14:18)
[2025-03-16] MEDS: METOPROLOL SUCCINATE XL 25 MG TABCR 75 MG PO (14:25)
[2025-03-16] MEDS: DIGOXIN 0.125 MG TABLET PO (14:27)
[2025-03-16 15:19] LABS: Cocci Serology, IgM Negative (Negative)
[2025-03-16] MEDS: ACETAMINOPHEN 500 MG TABLET 1000 MG PO (20:14)
[2025-03-16] MEDS: METOPROLOL SUCCINATE XL 25 MG TABCR 100 MG PO (20:14)
[2025-03-16] MEDS: LIDOCAINE 5% 1 PATCH TOP (20:14)
[2025-03-16 21:06] LABS: Partial Thromboplastin Time 29.1 Seconds (22.0-36.0)
[2025-03-16] MEDS: HEPARIN SOD INJ 5000 UNIT/ML VIAL 4000 UNIT IVP (22:00)
[2025-03-17] VITALS (12 sets, daily range): BP systolic 106–137; BP diastolic 66–87; PULSE 66–108; RESP 16–29; TEMP 36.1–36.9; O2SAT 93–99; BMI 33.8
--- NOTE | 2025-03-17 | XR_ITS ---
Examination: AP chest single view TECHNIQUE: AP upright portable chest single view Date and time: March 17, 2025 1229 hours INDICATIONS: Post right thoracentesis FINDINGS: No pneumothorax post thoracentesis Atelectasis in the right lower lobe Abnormal prominent right mediastinum Cardiac leads satisfactory position IMPRESSION: No pneumothorax post right thoracentesis
--- NOTE | 2025-03-17 00:10 | ECHO_ITS ---
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 16 - 28 cm?/m? Ascending Aorta Diameter 3.2 cm DOPPLER AV Peak Velocity 166.0 cm/s AV Peak Gradient 11.0 mmHg LVOT Peak Velocity 66.5 cm/s LVOT Peak Gradient 1.8 mmHg AV Area Cont Eq pk 1.4 cm? TR Peak Velocity 208.2 cm/s TR Peak Gradient 17.3 mmHg PV Peak Velocity 70.0 cm/s PV Peak Gradient 2.0 mmHg FINDINGS Left Ventricle Normal left ventricular size, wall thickness, systolic function with no obvious regional wall motion abnormalities. The ejection fraction is visually estimated at 55 %. Diastology can not be determined due to arrythmia. Right Ventricle The right ventricle is moderately dilated. RVSP 17mmHg. RAP 15mmHg. Left Atrium The left atrium is severely dilated. Right Atrium The right atrium is severely dilated. Atrial Septum The interatrial septum appears normal with no evidence of a shunt. Aorta The aorta is normal by two-dimensional, color flow and Doppler interrogation. Mitral Valve The mitral valve annulus is mildly calcified. There is moderate mitral regurgitation. Aortic Valve The aortic valve is trileaflet and mildly calcified. Lambl's excrescences of the aortic valve are present. There is trace aortic regurgitation. Tricuspid Valve The tricuspid valve is normal by two-dimensional, color flow and Doppler interrogation. There is moderate tricuspid regurgitation. Pulmonic Valve The pulmonic valve is not well visualized. There is no significant pulmonic valve regurgitation. Vessels The pulmonary artery appears normal. The inferior vena cava is dilated without inspiratory response. Pericardium The pericardium is normal by two-dimensional imaging. There is no significant pericardial effusion. CONCLUSIONS Indications: CHF Normal LV size Estimated EF 55-60%. Diastolic function could not be evaluated because of A-fib. Mild RV enlargement. Normal RVSP. Moderate MR and moderate TR with trace AI Severe biatrial dilatation. Dilated IVC. No pericardial effusion. Moderate aortic valve sclerosis without stenosis.. Frank Prater (Electronically Signed) Final Date: 17 March 2025 13:29
[2025-03-17] MEDS: ALBUTEROL/IPRATROPIUM (Duoneb) RT SOL 3 ML NEBU INH ×4 (02:00→18:15)
[2025-03-17 03:57] LABS: Basophils % (Auto) 0 % (0-2.5); Eosinophils # (Auto) 0.5 Thou/mm3 (0.0-0.5); Eosinophils % (Auto) 4 % (0-10); Hemoglobin 13.8 g/dL (13.5-16.0); Immature Granulocytes % (Auto) 3 % (0-0); Immature Granulocytes Auto 0.38 Thou/mm3 (0.00-0.00); Lymphocytes % (Auto) 16 % (10-50); Mean Corpuscular HGB Conc 33.7 g/dl (31.0-37.0); Mean Corpuscular Hemoglobin 34.2 pg (25.0-35.0); Mean Corpuscular Volume 102 fL (80-100); Monocytes # (Auto) 1.3 Thou/mm3 (0.0-0.8); Monocytes % (Auto) 11 % (0-12); Neutrophils # (Auto) 8.2 Thou/mm3 (1.8-7.7); Neutrophils % (Auto) 66 % (37-80); Nucleated Red Blood Cell % 0 /100 WBC (0); Platelet Count 185 Thou/mm3 (140-440); RDW Standard Deviation 55.3 fL (35.1-43.9); Red Blood Count 4.04 Miln/mm3 (4.50-5.90); White Blood Count 12.3 Thou/mm3 (3.8-10.6)
[2025-03-17 04:09] LABS: Partial Thromboplastin Time 26.8 Seconds (22.0-36.0)
[2025-03-17 04:25] LABS: Alanine Aminotransferase 8 U/L (10-49); Albumin, Serum 3.8 gm/dL (3.4-4.8); Albumin/Globulin Ratio 1.4 (1.2-2.2); Alkaline Phosphatase 170 U/L (46-116); Anion Gap 8 (7-16); Aspartate Amino Transferase 12 U/L (0-34); BUN/Creatinine Ratio 14 Ratio (12-20); Blood Urea Nitrogen 14 mg/dL (9-23); Calcium 9.1 mg/dL (8.3-10.6); Calcium (Corrected) 9.3 mg/dL (8.5-10.1); Carbon Dioxide 25.7 mMol/L (20.0-31.0); Chloride 105 mMol/L (98-107); Estimated Creatinine Clearance 96.4 mL/min (>60); Globulin 2.7 gm/dL (2.3-3.5); Glucose 122 mg/dL (74-106); LDH (Lactate Dehydrogenase) 308 U/L (120-246); Magnesium 2.1 mg/dL (1.6-2.6); Osmolality,Calculated 279 (275-295); Phosphorous 3.9 mg/dL (2.4-5.1); Potassium 4.4 mMol/L (3.4-5.1); Sodium 139 mMol/L (136-145); Total Protein 6.5 gm/dL (5.7-8.2); Uric Acid 6.2 mg/dL (3.7-9.2); eGFR > 60 See Note
--- NOTE | 2025-03-17 05:00 | XR_ITS ---
Examination: Ultrasound-guided right thoracentesis Ultrasound right hemithorax Date and time: March 17, 2025 1152 hours INDICATIONS: Shortness of breath today, history recurrent large right pleural effusions, mediastinal tumor lymphadenopathy on CT chest March 15, 2025 TECHNIQUE AND FINDINGS: Sonographic images right hemithorax demonstrate large right pleural effusion Informed consent provided. Timeout performed. Skin prepped over the posterior right hemithorax and sterile drape applied hand hygiene ultrasound sterile technique 1% lidocaine administered for local anesthesia Utilizing ultrasonographic guidance 5 [place] catheter placed in the right pleural space 2650 cc pleural fluid removed IMPRESSION: Successful ultrasound-guided right thoracentesis
[2025-03-17] MEDS: cefTRIAXone/D5w 1gm IV premix 1 GM/50 ML BAG IV (08:19)
[2025-03-17] MEDS: AZITHROMYCIN 250 MG TABLET 500 MG PO (08:20)
[2025-03-17] MEDS: METOPROLOL SUCCINATE XL 25 MG TABCR 100 MG PO (08:27)
[2025-03-17] MEDS: DIGOXIN 0.125 MG TABLET PO ×2 (08:27→13:29)
[2025-03-17] MEDS: SENNA TABLET 1 TAB PO (08:28)
--- NOTE | 2025-03-17 09:34 | PC.SS ---
Follow up note: Thoracentesis today. Pt is on IV antibiotic. Pt will return home upon d.c.
--- NOTE | 2025-03-17 09:48 | PD.RESPRO ---
Documentation for date of: 03/17/25 Subjective Subjective Interval history: Patient is a 63-year-old male with a past medical history of hypertension, chronic atrial fibrillation, status post AV jame ablation for tachycardia, status post maker implantation with VV I pacemaker, gout, negative coronary angiogram, concern for extensive lymphadenopathy, significant weight loss, who followed up at [facility] with a apparent negative biopsy that was inconclusive. 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 Patient presented to the emergency room via EMS with a chief complaint of cough ongoing for 1 month and enlarged mass that is fluctuant soft and located near the left clavicular area. Patient decided to follow-up with the emergency room as shortness of breath worsen despite starting amoxicillin clodronate 125 prescribed by the emergency room. Patient denied lower peripheral edema, orthopnea present, denied paroxysmal nocturnal dyspnea. Previous ejection fraction per chart review noted to be 60 to 65%. Patient denied past medical history of heart failure. Negative for chest pressure or palpitations. Saturating well on 4 L nasal cannula, at spO95%. Patient is still Afib w/ rvr with ranges from 110-140s. 03/17/2025: NO chief complains. No Afib w/ rvr noted on tele. Improved dyspnea. No chest pain and denied palpitations. Lower suspicious mass decreasing in size. Patient scheduled for thoracentesis, Eliquis continues to be on hold, resumed after procedure if no signs of bleeding noted. Diltiazem stopped AM. Heparin stopped overnight. Additional dose of digoxin 125 mcg PO given. Metoprolol XL 100 BID-->decreased to qday 2650 cc pleural fluid removed Exam Vital Signs Temp Pulse Resp BP Pulse Ox O2 Del Method O2 Flow Rate 97.9 F 89 29 H 137/87 H 93 L Nasal Cannula 2 03/17/25 08:00 03/17/25 08:27 03/17/25 08:00 03/17/25 08:27 03/17/25 08:00 03/17/25 08:00 03/17/25 08:00 Narrative Exam General Appearance: Alert & Oriented X3, well-nourished male who is lying in bed in sitting up in bed with no increased work of breathing noted, on 3 L NC HEENT: Skull symmetrical and atraumatic. Conjunctivae pale pink and moist. Pupils equal, round, reactive to light and accommodation (PERRL). External ear without lesion or discharge. Soft round, fluctuant mass appreciated near left clavicle region, nontender to touch, no erythema noted, not warm to touch-decreasing in size. Cardio: Normal Rate and Rhythm with S1 and S2 heart sounds. No murmurs or extra heart sounds auscultated. No bruits on carotid auscultation. No peripheral edema or cyanosis. Lungs: Symmetric with good expansion. Chest and back non-tender. Decreased vesicular breath sounds noted over right lung with crackles noted. Abdomen: Non-tender, Non-distended, Normal Reactive Bowel Sounds Neuro: Alert, cooperative, oriented to person, place, and time. Speech clear. CN grossly intact. Upper motor strength 5/5 and Lower motor strength 5/5. Sensation intact. Objective Labs 03/19/25 05:17 03/19/25 05:17 Labs: Laboratory Results - last 24 hr 03/15/25 03/16/25 03/17/25 19:44 20:35 03:48 WBC 12.3 H RBC 4.04 L Hgb 13.8 Hct 41.0 MCV 102 H MCH 34.2 MCHC 33.7 RDW Std Deviation 55.3 H Plt Count 185 Neut % (Auto) 66 Lymph % (Auto) 16 Catron % (Auto) 11 Eos % (Auto) 4 Baso % (Auto) 0 Neut # (Auto) 8.2 H Lymph # (Auto) 2.0 Catron # (Auto) 1.3 H Eos # (Auto) 0.5 Baso # (Auto) 0.0 Immature Gran # (Auto) 0.38 H Absolute Nucleated RBC 0.00 Immature Gran % 3 H Nucleated RBC % 0 APTT 29.1 26.8 Sodium 139 Potassium 4.4 Chloride 105 Carbon Dioxide 25.7 Anion Gap 8 BUN 14 Creatinine 1.0 Estim Creat Clear Calc 96.4 eGFR > 60 BUN/Creatinine Ratio 14 Glucose 122 H Calculated Osmolality 279 Uric Acid 6.2 Calcium 9.1 Corrected Calcium 9.3 Phosphorus 3.9 Magnesium 2.1 Total Bilirubin 1.0 AST 12 ALT 8 L Alkaline Phosphatase 170 H Lactate Dehydrogenase 308 H Total Protein 6.5 Albumin 3.8 Globulin 2.7 Albumin/Globulin Ratio 1.4 Coccidioides IgM Ab Negative ABG Interpretation ABG results: 03/15/25 19:15 VBG pH 7.42 VBG pCO2 43 VBG pO2 48 VBG Base Excess 3 Quality Measures Quality Measures none Advance care planning discussed with:: patient Assessment & Plan Assessment Current Active Medications: Generic Name Dose Route Start Last Admin Trade Name Freq PRN Reason Stop Dose Admin Acetaminophen 650 mg 03/16/25 00:04 Acetaminophen 325 Mg Tablet PO 04/15/25 00:03 Q6H PRN Fever >99.5 Acetaminophen 1,000 mg 03/16/25 09:16 03/16/25 20:14 Acetaminophen 500 Mg Tablet PO 04/15/25 00:03 1,000 mg Q6H PRN Administration PAIN SCALE 1-3 (mild Albuterol/Ipratropium 3 ml 03/16/25 00:04 Albuterol/Ipratropium (Duoneb) Rt Dominique 3 Ml Nebu INH 04/15/25 00:03 Q2HR PRN SHORTNESS OF BREATH OR WHEEZE Albuterol/Ipratropium 3 ml 03/16/25 01:00 03/17/25 07:05 Albuterol/Ipratropium (Duoneb) Rt Dominique 3 Ml Nebu INH 04/15/25 00:59 3 ml Q6HRRT DARLENE Administration Azithromycin 500 mg 03/16/25 09:00 03/17/25 08:20 Azithromycin 250 Mg Tablet PO 03/23/25 08:59 500 mg QDAY DARLENE Administration Digoxin 0.125 mg 03/16/25 13:15 03/17/25 08:27 Digoxin 0.125 Mg Tablet PO 04/15/25 13:14 0.125 mg QDAY DARLENE Administration Ceftriaxone Sodium/Dextrose 1 gm in 50 mls @ 100 mls/hr 03/16/25 00:11 03/17/25 08:19 Rocephin/D5w 1gm Iv Premix IV 03/23/25 00:10 100 mls/hr QDAY DARLENE Administration Heparin Sodium/Dextrose 25,000 unit in 250 mls @ 10 mls/hr 03/16/25 13:15 03/17/25 00:00 Heparin In D5w Ivpb IV 03/30/25 13:14 0 units/kg/hr .Q24H DARLENE 0 mls/hr Titration Protocol 8.8185 UNITS/KG/HR Metoprolol Succinate 100 mg 03/18/25 09:00 Metoprolol Succinate Xl 25 Mg Tabcr PO 04/17/25 08:59 QDAY DARLENE Ondansetron HCl 4 mg 03/16/25 00:04 Ondansetron Inj 2 Mg/Ml Inj 2 Ml IVP 04/15/25 00:03 Q6H PRN NAUSEA OR VOMITING Protocol Sennosides 1 tab 03/16/25 09:00 03/17/25 08:28 Senna Tablet PO 04/15/25 08:59 1 tab QDAY DARLENE Administration Protocol Plan Patient is a 63-year-old male with a past medical history of hypertension, chronic atrial fibrillation, status post AV jame ablation for tachycardia, status post maker implantation with VV I pacemaker, gout, negative coronary angiogram, concern for extensive lymphadenopathy, significant weight loss, who followed up at [facility] with a apparent negative biopsy that was inconclusive. 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 Patient was admitte don 03/16/2025 for acute hypoxic respiratory failure secondary to large right pleaural effusion and Afib w/ rvr #Atrial fibrillation #Atrial fibrillation with RVR, resolved. #Status post ablation #status post pacemaker #negative coronary angiogram Patient has a past medical history of atrial fibrillation previously rate controlled on metoprolol titrate 100 mg p.o. twice daily and digoxin 0.125 mg p.o. daily. Patient arrived with atrial fibrillation with RVR was started on the drip. This morning on photolith operator patient noted to have a heart rate between 110 and 130 which fluctuated still A-fib. A-fib with RVR likely triggered by large right pleural effusion likely superimposed with pneumonia. Negative for PE. Echo (03/17/2025): Normal LV size Estimated EF 55-60%. Diastolic function could not be evaluated because of A-fib. Mild RV enlargement. Normal RVSP. Moderate MR and moderate TR with trace AI Severe biatrial dilatation. Dilated IVC. No pericardial effusion. Moderate aortic valve sclerosis without stenosis.. EKG on admission noted with A-fib with RVR, heart rate 140, QTc 451, QRS past 91. Troponin within normal limits. Plan -Digoxin 0.125 mg p.o. once daily, additional dose of digoxin given 0.125 mg po X 1, monitor K. 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 Echo Read. 03/17/2025: s/p thoracentesis. Patient had successful ultrasound guided thoracentesis with 2650 cc of pleural fluid removed. Lights Criteria noted to be Exudative. Given past medical history of castelman's disease, pleural effusion are known to occur. Patient would need to follow up with specialist in [facility]. Diagnostics Lights Criteria: Positive for exudative Effusion Chest CTA (03/15/2025): Bilateral subcentimeter pulmonary nodules, pneumonia in the right middle lobe and right lower lobe, negative for PE, extensive mediastinal lymphadenopathy, large right pleural effusion. Chest x-ray: Mild to moderate heart failure, prominent vascular congestion with Gerardo hilar basilar edema, suspicious for superimposed pneumonia in the right base. Plan -Ceftriaxone and azithromycin (03/16/2025) - DuoNebs - Blood cultures 48 hours urine culture pending -Cocci Negative #Left clavicular suspicious mass #Lymphadenopathy #Castleman's disease Per patient history, diagnosed with Castleman's disease on Sylvant infusion and oral steriods. Per chart review, patient was referred to [facility] for lymphadenopathy, or biopsy was performed and results were negative for malignancy, patient was subsequently diagnosed with Castleman's disease. Concern for worsening suspicious mass that is fluctuant nontender and uniform at the supra clavicular region. Echo (12/10/2024): Normal LV size and function. Estimated LVEF 60-65%. Diastolic dysfunction present but cannot grade due to afib.RV size is moderately increased. Device wire visualized in the RV. Normal RV function Moderate TR eccentric. TV peak velocity could be underestimated. Estimated RVSP 38mmHg, including RAP. Severely enlarged LA and RA. Mild to Moderate MR. Dilated IVC. Soft tissue neck CT (03/15/2025): Extensive abnormal cervical supraclavicular lymphadenopathy suspicious for metastatic disease. Partially visualized extensive mediastinal lymphadenopathy Plan -Primary team following - Requesting records from [facility] #Hypertension Home medication of lisinopril consider holding given metoprolol succinate 100 mg twice daily, continue to monitor Plan -Home medication of lisinopril #Hyperuremia/gout Home medication of allopurinol, denied any tenderness or pain to musculoskeletal Plan -Consider resuming allopurinol given no VIOLETA Disposition: admitted for acute hypoxic respiratory failure and r. pleural effusion. Cardiology following for Afib w/ rvr Fluids: None Feeding: Cardiac diet Thrombo prophylaxis:Heparin Gastric Ulcer prophylaxis: P.o. Protonix CODE STATUS: Full code - The patient's plan was discussed with attending Dr. Moi Lu MD PGY1 Internal Medicine Attending Provider Attestation/Addendum I have personally seen and examined the patient separately on the above date of service and discussed the plan of care with the resident. I reviewed the resident Dr. Samira Lu consultation progress note and agree with the resident findings and plan in the note above and have also edited the documentation to reflect my findings and plan. Frank Prater M.D. Interventional Cardiology
[2025-03-17 13:15] LABS: Cocci Serology, IgG Negative (Negative)
--- NOTE | 2025-03-17 14:37 | ESPR_ITS ---
Documentation for date of: 03/17/25 Subjective Subjective Interval history: No acute events overnight.?Patient seen and examined at bedside this AM.?Patient had thoracentesis today with output 2650 cc pleural fluid removed, milky-opaque in color. Cytology form completed and given to RN. Specimen brought to lab. Patient reports good relief of breathing after the fluid withdrawal. Patient's home Eliquis was resumed after procedure. Labs and vitals were reviewed.?Patient and family had questions about findings of CTs since admission and plan so far. Discussed cocci and culture results so far which are negative. Discussed CTs which showed extensive lymphadenopathy, especially in the mediastinal cavity, but at this time the etiology of which is unknown. 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 Patient reported a PET scan done 2 months ago was all clear. 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 Patient's family states he has a follow up scheduled on March 25 at [facility]. Patient had back pain and spasms so given cyclobenzaprine x1. Review of systems otherwise negative except what is mentioned above. Exam Vital Signs Temp Pulse Resp BP Pulse Ox O2 Del Method O2 Flow Rate 97.1 F 91 20 137/79 H 99 Nasal Cannula 2 03/17/25 12:00 03/17/25 13:33 03/17/25 13:33 03/17/25 13:29 03/17/25 13:33 03/17/25 12:00 03/17/25 13:33 Narrative Exam Physical Exam General: Awake and in no acute distress. Conversational and non-toxic appearing. HEENT: Normocephalic, atraumatic, mucous membranes moist. Patient on 2 L nasal cannula Heart: Regular rate and rhythm seems to be in sinus rhythm, no murmurs. Lungs: Decreased breath sounds right lung, mild crackles left lung Abdomen: Soft, nondistended, nontender, positive bowel sounds. ?No guarding or rebound tenderness. Neurologic: Alert and oriented x3, no gross neurological deficit, and patient able to move all 4 extremities. Extremities: No edema. Skin: No rash or ecchymoses. Objective Labs 03/18/25 05:35 03/18/25 05:35 Labs: Laboratory Results - last 24 hr 03/15/25 03/16/25 03/17/25 19:44 20:35 03:48 WBC 12.3 H RBC 4.04 L Hgb 13.8 Hct 41.0 MCV 102 H MCH 34.2 MCHC 33.7 RDW Std Deviation 55.3 H Plt Count 185 Neut % (Auto) 66 Lymph % (Auto) 16 Merrick % (Auto) 11 Eos % (Auto) 4 Baso % (Auto) 0 Neut # (Auto) 8.2 H Lymph # (Auto) 2.0 Merrick # (Auto) 1.3 H Eos # (Auto) 0.5 Baso # (Auto) 0.0 Immature Gran # (Auto) 0.38 H Absolute Nucleated RBC 0.00 Immature Gran % 3 H Nucleated RBC % 0 APTT 29.1 26.8 Sodium 139 Potassium 4.4 Chloride 105 Carbon Dioxide 25.7 Anion Gap 8 BUN 14 Creatinine 1.0 Estim Creat Clear Calc 96.4 eGFR > 60 BUN/Creatinine Ratio 14 Glucose 122 H Calculated Osmolality 279 Uric Acid 6.2 Calcium 9.1 Corrected Calcium 9.3 Phosphorus 3.9 Magnesium 2.1 Total Bilirubin 1.0 AST 12 ALT 8 L Alkaline Phosphatase 170 H Lactate Dehydrogenase 308 H Total Protein 6.5 Albumin 3.8 Globulin 2.7 Albumin/Globulin Ratio 1.4 Coccidioides IgG Ab Negative Coccidioides IgM Ab Negative ABG Interpretation ABG results: 03/15/25 19:15 VBG pH 7.42 VBG pCO2 43 VBG pO2 48 VBG Base Excess 3 Quality Measures Quality Measures none Advance care planning discussed with:: patient and spouse Assessment & Plan Assessment Current Active Medications: Generic Name Dose Route Start Last Admin Trade Name Gladys PRN Reason Stop Dose Admin Acetaminophen 650 mg 03/16/25 00:04 Acetaminophen 325 Mg Tablet PO 04/15/25 00:03 Q6H PRN Fever >99.5 Acetaminophen 1,000 mg 03/16/25 09:16 03/16/25 20:14 Acetaminophen 500 Mg Tablet PO 04/15/25 00:03 1,000 mg Q6H PRN Administration PAIN SCALE 1-3 (mild Albuterol/Ipratropium 3 ml 03/16/25 00:04 Albuterol/Ipratropium (Duoneb) Rt Dominique 3 Ml Nebu INH 04/15/25 00:03 Q2HR PRN SHORTNESS OF BREATH OR WHEEZE Albuterol/Ipratropium 3 ml 03/16/25 01:00 03/17/25 13:31 Albuterol/Ipratropium (Duoneb) Rt Dominique 3 Ml Nebu INH 04/15/25 00:59 3 ml Q6HRRT DARLENE Administration Azithromycin 500 mg 03/16/25 09:00 03/17/25 08:20 Azithromycin 250 Mg Tablet PO 03/23/25 08:59 500 mg QDAY DARLENE Administration Digoxin 0.125 mg 03/16/25 13:15 03/17/25 08:27 Digoxin 0.125 Mg Tablet PO 04/15/25 13:14 0.125 mg QDAY DARLENE Administration Ceftriaxone Sodium/Dextrose 1 gm in 50 mls @ 100 mls/hr 03/16/25 00:11 03/17/25 08:19 Rocephin/D5w 1gm Iv Premix IV 03/23/25 00:10 100 mls/hr QDAY DARLENE Administration Heparin Sodium/Dextrose 25,000 unit in 250 mls @ 10 mls/hr 03/16/25 13:15 03/17/25 00:00 Heparin In D5w Ivpb IV 03/30/25 13:14 0 units/kg/hr .Q24H DARLENE 0 mls/hr Titration Protocol 8.8185 UNITS/KG/HR Metoprolol Succinate 100 mg 03/18/25 09:00 Metoprolol Succinate Xl 25 Mg Tabcr PO 04/17/25 08:59 QDAY DARLENE Ondansetron HCl 4 mg 03/16/25 00:04 Ondansetron Inj 2 Mg/Ml Inj 2 Ml IVP 04/15/25 00:03 Q6H PRN NAUSEA OR VOMITING Protocol Sennosides 1 tab 03/16/25 09:00 03/17/25 08:28 Senna Tablet PO 04/15/25 08:59 1 tab QDAY DARLENE Administration Protocol Plan Assessment and plan: Summary: Mr Pena is a 64-year-old male past medical history of Atrial fibrillation on Eliquis, HFpEF (60-65%), hypertension, sick sinus syndrome status post pacemaker placement in 2007 and ?Multicentric Castleman's disease who presented to the ED due to shortness of breath and a neck lump. Patient admitted to the hospital for further management of acute hypoxic respiratory failure secondary to pneumonia, right pleural effusion and A-fib with RVR. #Acute hypoxic respiratory failure secondary to #Community-acquired pneumonia, failed outpatient treatment #Right pleural effusion, ?parapneumonic effusion Patient with shortness of breath and yellow productive sputum as well as cough Came to the ED on Monday received 3 days of antibiotics however continued to worsen and came back to the ER Checks x-ray and chest CT shows right base pneumonia and right pleural effusion Blood cultures- negative Urine cultures- negative Cocci results- negative 03/17/2025 thoracentesis completed with specimen sent to cytology Pleural fluid is exudative by Light's criteria Plan: ? DuoNebs scheduled and as needed ? IV ceftriaxone and azithromycin #Atrial fibrillation with RVR #Heart failure with preserved ejection fraction, EF 60 to 65%, November 2023, diastolic heart failure #Status post pacemaker, history of sick sinus syndrome Patient endorsing palpitations and came to the ED with A-fib RVR rate~140s-150s Last echo November 2023: Normal LV size and function. Estimated LVEF 60-65%. Diastolic dysfunction present but cannot grade due to afib. RV size is moderately increased. Device wire visualized in the RV. Normal RV function Moderate TR eccentric. TV peak velocity could be underestimated. Estimated RVSP 38mmHg, including RAP. Severely enlarged LA and RA. Mild to Moderate MR. Dilated IVC. Patient used to take diuretics but stopped taking medications 2-3 months ago. currently on eliquis ? Changed Metoprolol XL 100 mg twice daily to once daily per cardiology recs ? Continue home dose digoxin 0.125 mg daily ? Resumed home Eliquis 5 mg BID post-procedure ? Heparin GGT, will hold heparin at midnight ? Echo ordered to assess LV/RV function ? Keep K>4, Mg>2 ? Telemetry ? Hold diuresis, currently euvolemic ? I's and O's ? Cardiology consulted, appreciate recommendations #Lymphadenopathy #?Castleman disease Patient has been worked up outpatient with [facility] for extensive lymphadenopathy, reported that he was ruled out for cancer. On medication review patient was prescribed medications under diagnosis of Castleman disease by Dr. Venancio Gil heme-oncologist and [facility] Neck supraclavicular lymphadenopathy onset 03/15/2025. 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 Patient being managed by [facility] heme oncologist Dr. Venancio Gil. ?Will obtain records from [facility] #Hypertension #GERD #Hyperuricemia Patient on metoprolol tartrate 100 twice daily, lisinopril 20 mg daily - Will resume as appropriate. Health Maintenance: Disposition: Telemetry, pending thoracentesis Fluids: None Feeding: Cardiac diet, n.p.o. after midnight Thrombo prophylaxis: heparin drip, hold at midnight Gastric Ulcer prophylaxis: P.o. Protonix CODE STATUS: Full code Patient plan of care was discussed with the attending physician, Dr. Washington. Dinora Chin, PGY-2 Attending Provider Attestation/Addendum 64-year-old male with multiple comorbidities including atrial fibrillation on Eliquis, heart failure with preserved EF with EF 60-65%, hypertension and sick sinus syndrome status post pacemaker placement and Castleman disease who presented with shortness of breath found to have acute hypoxic respiratory failure secondary to community acquired pneumonia and right pleural effusion likely parapneumonic in nature. As a result, plan to continue IV antibiotic therapy including Rocephin and azithromycin and plan for a thoracentesis. In addition, patient also noted to have A-fib with RVR with acute CHF exacerbation for which initially required diltiazem drip however we will discontinue and start patient on metoprolol with Eliquis.overnight, patient underwent thoracentesis with improvement in hypoxia and respiratory symptoms however continues to be in A-fib with RVR and thus continue to require close monitoring. Appreciate cardiology input. Anticipate discharge in the next 24 hours. I reviewed above note and agree with findings and plans. I have also personally examined the patient with medicine team and went over assessment and plan with medical team including manager internship and resident physician.
[2025-03-17 16:05] LABS: Pleural Fluid WBC 4746 /cmm
[2025-03-17 16:11] LABS: Amylase,Pleural Fluid 58 IU/L; Glucose,Pleural Fluid 120 mg/dL; LDH,Pleural Fluid 237 IU/L; Protein Total,Pleural Fluid 4.1 g/dL
[2025-03-17 16:12] LABS: Pleural Fluid Appearance Cloudy; Pleural Fluid Color Yellow; Pleural Fluid RBC 8000 /cmm
[2025-03-17 16:14] LABS: Pleural Fluid Mononuclear 89 %; Pleural Fluid Polynuclear 11 %
[2025-03-17] MEDS: HYDROcodone/APAP 5/325 TABLET 1 TAB PO (16:35)
[2025-03-17] MEDS: APIXABAN 2.5 MG TABLET 5 MG PO (16:36)
[2025-03-17] MEDS: CYCLObenzaPRINE 5 MG TABLET PO (18:41)
[2025-03-18] VITALS (15 sets, daily range): BP systolic 95–145; BP diastolic 59–89; PULSE 67–152; RESP 2–99; TEMP 36.2–36.9; O2SAT 96–99; BMI 33.0
[2025-03-18 06:08] LABS: Basophils # (Auto) 0.1 Thou/mm3 (0.0-0.2); Basophils % (Auto) 1 % (0-2.5); Eosinophils # (Auto) 0.4 Thou/mm3 (0.0-0.5); Eosinophils % (Auto) 4 % (0-10); Hematocrit 40.6 % (41.0-53.0); Hemoglobin 14.1 g/dL (13.5-16.0); Immature Granulocytes % (Auto) 5 % (0-0); Immature Granulocytes Auto 0.56 Thou/mm3 (0.00-0.00); Lymphocytes # (Auto) 1.7 Thou/mm3 (1.0-4.8); Lymphocytes % (Auto) 15 % (10-50); Mean Corpuscular HGB Conc 34.7 g/dl (31.0-37.0); Mean Corpuscular Hemoglobin 33.7 pg (25.0-35.0); Mean Corpuscular Volume 97 fL (80-100); Monocytes % (Auto) 9 % (0-12); Neutrophils # (Auto) 7.5 Thou/mm3 (1.8-7.7); Neutrophils % (Auto) 67 % (37-80); Nucleated Red Blood Cell % 0 /100 WBC (0); Platelet Count 189 Thou/mm3 (140-440); RDW Standard Deviation 51.5 fL (35.1-43.9); Red Blood Count 4.19 Miln/mm3 (4.50-5.90); White Blood Count 11.2 Thou/mm3 (3.8-10.6)
[2025-03-18 06:33] LABS: INR 1.1 (0.9-1.3); Partial Thromboplastin Time 26.4 Seconds (22.0-36.0); Prothrombin Time 11.8 Seconds (9.0-12.2)
[2025-03-18 06:42] LABS: Alanine Aminotransferase 8 U/L (10-49); Albumin, Serum 3.8 gm/dL (3.4-4.8); Albumin/Globulin Ratio 1.4 (1.2-2.2); Alkaline Phosphatase 173 U/L (46-116); Anion Gap 6 (7-16); Aspartate Amino Transferase 15 U/L (0-34); BUN/Creatinine Ratio 17 Ratio (12-20); Bilirubin,Total 1.3 mg/dL (0.3-1.2); Blood Urea Nitrogen 15 mg/dL (9-23); Calcium 8.8 mg/dL (8.3-10.6); Carbon Dioxide 25.9 mMol/L (20.0-31.0); Chloride 105 mMol/L (98-107); Creatinine (Component) 0.9 mg/dL (0.6-1.3); Digoxin 0.8 ng/mL (0.8-2.0); Estimated Creatinine Clearance 106.5 mL/min (>60); Globulin 2.8 gm/dL (2.3-3.5); Glucose 113 mg/dL (74-106); Magnesium 2.1 mg/dL (1.6-2.6); Osmolality,Calculated 275 (275-295); Phosphorous 3.1 mg/dL (2.4-5.1); Potassium 4.3 mMol/L (3.4-5.1); Sodium 137 mMol/L (136-145); Total Protein 6.6 gm/dL (5.7-8.2); eGFR > 60 See Note
[2025-03-18] MEDS: ALBUTEROL/IPRATROPIUM (Duoneb) RT SOL 3 ML NEBU INH ×2 (07:21→12:16)
[2025-03-18] MEDS: AZITHROMYCIN 250 MG TABLET 500 MG PO (08:13)
[2025-03-18] MEDS: METOPROLOL SUCCINATE XL 25 MG TABCR 100 MG PO ×2 (08:14→17:43)
[2025-03-18] MEDS: DIGOXIN 0.125 MG TABLET PO ×2 (08:14→09:16)
[2025-03-18] MEDS: cefTRIAXone/D5w 1gm IV premix 1 GM/50 ML BAG IV (08:15)
[2025-03-18] MEDS: SENNA TABLET 1 TAB PO (08:15)
[2025-03-18] MEDS: APIXABAN 2.5 MG TABLET 5 MG PO ×2 (08:15→20:31)
--- NOTE | 2025-03-18 11:03 | ESPR_ITS ---
<Statement entered by Moe Washington MD - 03/27/25 07:47> I reviewed above note and agree with findings and plans. I have also personally examined the patient with medicine team and went over assessment and plan with medical team including software intern and resident physician. Documentation for date of: 03/18/25 Subjective Subjective Interval history: Patient seen and examined at bedside. Received thoracentesis yesterday, had about 2650 cc pleural fluid removed. Patient saturating well on room air currently. Patient's heart rate elevated, was given additional dose of 0.125 digoxin, will transition back to metoprolol succinate 100 twice daily. Complains of muscle spasms/upper lower back pain bilateral, started on Flexeril as needed, Maalox as needed and famotidine. Will observe for 24 hours, cardiology is following, pending heart rate improvement. Exam Vital Signs Temp Pulse Resp BP Pulse Ox O2 Del Method O2 Flow Rate 97.2 F 132 H 18 112/78 99 Nasal Cannula 2 03/18/25 07:43 03/18/25 09:16 03/18/25 07:43 03/18/25 09:16 03/18/25 07:43 03/18/25 07:43 03/18/25 07:43 Narrative Exam Physical Exam General: Awake and in no acute distress. Conversational and non-toxic appearing. HEENT: Normocephalic, atraumatic, mucous membranes moist. Heart: Regular rate and rhythm seems to be in sinus rhythm, no murmurs. Lungs: Decreased breath sounds right lung, mild crackles left lung Abdomen: Soft, nondistended, nontender, positive bowel sounds. ?No guarding or rebound tenderness. Neurologic: Alert and oriented x3, no gross neurological deficit, and patient able to move all 4 extremities. Extremities: No edema. Skin: No rash or ecchymoses. Objective Labs 03/18/25 05:35 03/18/25 05:35 Labs: Laboratory Results - last 24 hr 03/15/25 03/17/25 03/18/25 19:44 15:35 05:35 WBC 11.2 H RBC 4.19 L Hgb 14.1 Hct 40.6 L MCV 97 MCH 33.7 MCHC 34.7 RDW Std Deviation 51.5 H Plt Count 189 Neut % (Auto) 67 Lymph % (Auto) 15 Reeves % (Auto) 9 Eos % (Auto) 4 Baso % (Auto) 1 Neut # (Auto) 7.5 Lymph # (Auto) 1.7 Reeves # (Auto) 1.0 H Eos # (Auto) 0.4 Baso # (Auto) 0.1 Immature Gran # (Auto) 0.56 H Absolute Nucleated RBC 0.00 Immature Gran % 5 H Nucleated RBC % 0 PT 11.8 INR 1.1 APTT 26.4 Sodium 137 Potassium 4.3 Chloride 105 Carbon Dioxide 25.9 Anion Gap 6 L BUN 15 Creatinine 0.9 Estim Creat Clear Calc 106.5 eGFR > 60 BUN/Creatinine Ratio 17 Glucose 113 H Calculated Osmolality 275 Calcium 8.8 Corrected Calcium 9.0 Phosphorus 3.1 Magnesium 2.1 Total Bilirubin 1.3 H AST 15 ALT 8 L Alkaline Phosphatase 173 H Total Protein 6.6 Albumin 3.8 Globulin 2.8 Albumin/Globulin Ratio 1.4 Pleural Color Yellow Pleural Appearance Cloudy Pleural WBC 4746 Pleural RBC 8000 Pleural Polynuclear WBC 11 Pleural Mononuclear WBC 89 Pleural Total Protein 4.1 Pleural LDH 237 Pleural Glucose 120 Pleural Amylase 58 Digoxin 0.8 Coccidioides IgG Ab Negative ABG Interpretation ABG results: 03/15/25 19:15 VBG pH 7.42 VBG pCO2 43 VBG pO2 48 VBG Base Excess 3 Quality Measures Quality Measures none Advance care planning discussed with:: patient Assessment & Plan Assessment Current Active Medications: Generic Name Dose Route Start Last Admin Trade Name Freq PRN Reason Stop Dose Admin Acetaminophen 650 mg 03/16/25 00:04 Acetaminophen 325 Mg Tablet PO 04/15/25 00:03 Q6H PRN Fever >99.5 Acetaminophen 1,000 mg 03/16/25 09:16 03/16/25 20:14 Acetaminophen 500 Mg Tablet PO 04/15/25 00:03 1,000 mg Q6H PRN Administration PAIN SCALE 1-3 (mild Hydrocodone Bitart/Acetaminophen 1 tab 03/17/25 16:19 03/17/25 16:35 Hydrocodone/Apap 5/325 Tablet PO 03/22/25 16:18 1 tab Q8HR PRN Administration PAIN SCALE 4-10(Mod-Sev Albuterol/Ipratropium 3 ml 03/16/25 00:04 Albuterol/Ipratropium (Duoneb) Rt Dominique 3 Ml Nebu INH 04/15/25 00:03 Q2HR PRN SHORTNESS OF BREATH OR WHEEZE Albuterol/Ipratropium 3 ml 03/16/25 01:00 03/18/25 07:21 Albuterol/Ipratropium (Duoneb) Rt Dominique 3 Ml Nebu INH 04/15/25 00:59 3 ml Q6HRRT DARLENE Administration Apixaban 5 mg 03/17/25 16:25 03/18/25 08:15 Apixaban 2.5 Mg Tablet PO 04/16/25 16:24 5 mg BID DARLENE Administration Azithromycin 500 mg 03/16/25 09:00 03/18/25 08:13 Azithromycin 250 Mg Tablet PO 03/23/25 08:59 500 mg QDAY DARLENE Administration Digoxin 0.125 mg 03/16/25 13:15 03/18/25 08:14 Digoxin 0.125 Mg Tablet PO 04/15/25 13:14 0.125 mg QDAY DARLENE Administration Ceftriaxone Sodium/Dextrose 1 gm in 50 mls @ 100 mls/hr 03/16/25 00:11 03/18/25 08:15 Rocephin/D5w 1gm Iv Premix IV 03/23/25 00:10 100 mls/hr QDAY DARLENE Administration Lidocaine 1 patch 03/17/25 16:19 Lidocaine 5% 1 Patch TOP 04/16/25 16:18 UD PRN PAIN Protocol Metoprolol Succinate 100 mg 03/18/25 18:00 Metoprolol Succinate Xl 25 Mg Tabcr PO 03/18/25 18:01 X1 ONE Metoprolol Succinate 100 mg 03/19/25 09:00 Metoprolol Succinate Xl 25 Mg Tabcr PO 04/18/25 08:59 BID DARLENE Ondansetron HCl 4 mg 03/16/25 00:04 Ondansetron Inj 2 Mg/Ml Inj 2 Ml IVP 04/15/25 00:03 Q6H PRN NAUSEA OR VOMITING Protocol Sennosides 1 tab 03/16/25 09:00 03/18/25 08:15 Senna Tablet PO 04/15/25 08:59 1 tab QDAY DARLENE Administration Protocol Plan Assessment and plan: Summary: Mr Pena is a 64-year-old male past medical history of Atrial fibrillation on Eliquis, HFpEF (60-65%), hypertension, sick sinus syndrome status post pacemaker placement in 2007 and ?Multicentric Castleman's disease who presented to the ED due to shortness of breath and a neck lump. Patient admitted to the hospital for further management of acute hypoxic respiratory failure secondary to pneumonia, right pleural effusion and A-fib with RVR. #Atrial fibrillation with RVR #Heart failure with preserved ejection fraction, EF 60 to 65%, November 2023, diastolic heart failure #Status post pacemaker, history of sick sinus syndrome Patient endorsing palpitations and came to the ED with A-fib RVR rate~140s-150s Last echo November 2023: Normal LV size and function. Estimated LVEF 60-65%. Diastolic dysfunction present but cannot grade due to afib. RV size is moderately increased. Device wire visualized in the RV. Normal RV function Moderate TR eccentric. TV peak velocity could be underestimated. Estimated RVSP 38mmHg, including RAP. Severely enlarged LA and RA. Mild to Moderate MR. Dilated IVC. Patient used to take diuretics but stopped taking medications 2-3 months ago. currently on eliquis ECHO 03/17/25: Normal LV size Estimated EF 55-60%. Diastolic function could not be evaluated because of A-fib. Mild RV enlargement. Normal RVSP. Moderate MR and moderate TR with trace AI Severe biatrial dilatation. Dilated IVC. No pericardial effusion. Moderate aortic valve sclerosis without stenosis. Plan ? Changed Metoprolol XL 100 mg twice daily for optimized control. ? Continue home dose digoxin 0.125 mg daily, was given additional dose of digoxin 0.125 x1 ? Continue home Eliquis 5 mg BID ? Keep K>4, Mg>2 ? Telemetry ? Hold diuresis, currently euvolemic ? I's and O's ? Cardiology consulted, appreciate recommendations #Acute hypoxic respiratory failure, resolved secondary to #Community-acquired pneumonia, failed outpatient treatment #Right pleural effusion, ?parapneumonic effusion Patient with shortness of breath and yellow productive sputum as well as cough Came to the ED on Monday received 3 days of antibiotics however continued to worsen and came back to the ER Checks x-ray and chest CT shows right base pneumonia and right pleural effusion Blood cultures- negative Urine cultures- negative Cocci results- negative 03/17/2025 thoracentesis completed with specimen sent to cytology Pleural fluid is exudative by Light's criteria Plan: ? DuoNebs scheduled and as needed ? IV ceftriaxone and azithromycin #Lymphadenopathy #Castleman disease Patient has been worked up outpatient with [facility] for extensive lymphadenopathy, reported that he was ruled out for cancer. On medication review patient was prescribed medications under diagnosis of Castleman disease by Dr. Venancio Gil [facility]-oncologist and [facility] Neck supraclavicular lymphadenopathy onset 03/15/2025. 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 Patient being managed by [facility] oncologist Dr. Venancio Gil. ?Will obtain records from [facility], pending #Hypertension #GERD #Hyperuricemia Patient on metoprolol tartrate 100 twice daily, lisinopril 20 mg daily - Will resume as appropriate. Health Maintenance: Disposition: Telemetry, pending improvement in heart rate Fluids: None Feeding: Cardiac diet Thrombo prophylaxis: Eliquis twice daily Gastric Ulcer prophylaxis: P.o. Protonix CODE STATUS: Full code Patient plan of care was discussed with the attending physician, Dr. Washington. Pramod Sales PGY1
[2025-03-18] MEDS: HYDROcodone/APAP 5/325 TABLET 1 TAB PO ×2 (13:21→22:46)
[2025-03-18] MEDS: LIDOCAINE 5% 1 PATCH TOP (13:22)
[2025-03-18] MEDS: MG HYD/AL HYD/SIME (Maalox Reg) SUSP 30 ML UDC 15 ML PO (13:47)
[2025-03-18] MEDS: CYCLObenzaPRINE 5 MG TABLET 10 MG PO ×2 (13:48→19:39)
[2025-03-18] MEDS: FAMOTIDINE 20 MG TABLET PO (13:48)
--- NOTE | 2025-03-18 14:48 | PD.RESPRO ---
Documentation for date of: 03/18/25 Subjective Subjective Interval history: Patient is a 63-year-old male with a past medical history of hypertension, chronic atrial fibrillation, status post AV jame ablation for tachycardia, status post maker implantation with VV I pacemaker, gout, negative coronary angiogram, concern for extensive lymphadenopathy, significant weight loss, who followed up at [facility] with a apparent negative biopsy that was inconclusive. 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 Patient presented to the emergency room via EMS with a chief complaint of cough ongoing for 1 month and enlarged mass that is fluctuant soft and located near the left clavicular area. Patient decided to follow-up with the emergency room as shortness of breath worsen despite starting amoxicillin clodronate 125 prescribed by the emergency room. Patient denied lower peripheral edema, orthopnea present, denied paroxysmal nocturnal dyspnea. Previous ejection fraction per chart review noted to be 60 to 65%. Patient denied past medical history of heart failure. Negative for chest pressure or palpitations. Saturating well on 4 L nasal cannula, at spO95%. Patient is still Afib w/ rvr with ranges from 110-140s. 03/17/2025: NO chief complains. No Afib w/ rvr noted on tele. Improved dyspnea. No chest pain and denied palpitations. Lower suspicious mass decreasing in size. Patient scheduled for thoracentesis, Eliquis continues to be on hold, resumed after procedure if no signs of bleeding noted. Diltiazem stopped AM. Heparin stopped overnight. Additional dose of digoxin 125 mcg PO given. Metoprolol XL 100 BID-->decreased to qday by primary team. consider adding holding parameters. 2650 cc pleural fluid removed 03/18/2025: No overnight events. Patient denied chest pain or shortness of breath. Positive for palpitations. A fib w/ rvr HR 130s. Resume Metoprolol 100 mg BID. Please give additional dose of digoxin 125 mcg. Continue to monitor rate and BP. Add holding parameters for Metoprolol if BP <120. Cytology pending on pleural fluid. Culture pending on pleural fluid. Exam Vital Signs Temp Pulse Resp BP Pulse Ox O2 Del Method O2 Flow Rate 97.2 F 121 H 18 128/84 98 Room Air 2 03/18/25 12:00 03/18/25 12:16 03/18/25 12:16 03/18/25 12:00 03/18/25 12:16 03/18/25 12:00 03/18/25 12:00 Narrative Exam General Appearance: Alert & Oriented X3, well-nourished male who is lying in bed in sitting up in bed with no increased work of breathing noted HEENT: Skull symmetrical and atraumatic. Conjunctivae pale pink and moist. Pupils equal, round, reactive to light and accommodation (PERRL). External ear without lesion or discharge. Soft round, fluctuant mass appreciated near left clavicle region, nontender to touch, no erythema noted, not warm to touch-decreasing in size. Cardio: Normal Rate and Rhythm with S1 and S2 heart sounds. No murmurs or extra heart sounds auscultated. No bruits on carotid auscultation. No peripheral edema or cyanosis. Lungs: Symmetric with good expansion. Chest and back non-tender. Decreased vesicular breath sounds noted over right lung with crackles noted. Abdomen: Non-tender, Non-distended, Normal Reactive Bowel Sounds Neuro: Alert, cooperative, oriented to person, place, and time. Speech clear. CN grossly intact. Upper motor strength 5/5 and Lower motor strength 5/5. Sensation intact. Objective Labs 03/19/25 05:17 03/19/25 05:17 Labs: Laboratory Results - last 24 hr 03/17/25 03/18/25 15:35 05:35 WBC 11.2 H RBC 4.19 L Hgb 14.1 Hct 40.6 L MCV 97 MCH 33.7 MCHC 34.7 RDW Std Deviation 51.5 H Plt Count 189 Neut % (Auto) 67 Lymph % (Auto) 15 [place] % (Auto) 9 Eos % (Auto) 4 Baso % (Auto) 1 Neut # (Auto) 7.5 Lymph # (Auto) 1.7 [place] # (Auto) 1.0 H Eos # (Auto) 0.4 Baso # (Auto) 0.1 Immature Gran # (Auto) 0.56 H Absolute Nucleated RBC 0.00 Immature Gran % 5 H Nucleated RBC % 0 PT 11.8 INR 1.1 APTT 26.4 Sodium 137 Potassium 4.3 Chloride 105 Carbon Dioxide 25.9 Anion Gap 6 L BUN 15 Creatinine 0.9 Estim Creat Clear Calc 106.5 eGFR > 60 BUN/Creatinine Ratio 17 Glucose 113 H Calculated Osmolality 275 Calcium 8.8 Corrected Calcium 9.0 Phosphorus 3.1 Magnesium 2.1 Total Bilirubin 1.3 H AST 15 ALT 8 L Alkaline Phosphatase 173 H Total Protein 6.6 Albumin 3.8 Globulin 2.8 Albumin/Globulin Ratio 1.4 Pleural Color Yellow Pleural Appearance Cloudy Pleural WBC 4746 Pleural RBC 8000 Pleural Polynuclear WBC 11 Pleural Mononuclear WBC 89 Pleural Total Protein 4.1 Pleural LDH 237 Pleural Glucose 120 Pleural Amylase 58 Digoxin 0.8 ABG Interpretation ABG results: 03/15/25 19:15 VBG pH 7.42 VBG pCO2 43 VBG pO2 48 VBG Base Excess 3 Quality Measures Quality Measures none Advance care planning discussed with:: patient Assessment & Plan Assessment Current Active Medications: Generic Name Dose Route Start Last Admin Trade Name Freq PRN Reason Stop Dose Admin Acetaminophen 650 mg 03/16/25 00:04 Acetaminophen 325 Mg Tablet PO 04/15/25 00:03 Q6H PRN Fever >99.5 Acetaminophen 1,000 mg 03/16/25 09:16 03/16/25 20:14 Acetaminophen 500 Mg Tablet PO 04/15/25 00:03 1,000 mg Q6H PRN Administration PAIN SCALE 1-3 (mild Hydrocodone Bitart/Acetaminophen 1 tab 03/17/25 16:19 03/18/25 13:21 Hydrocodone/Apap 5/325 Tablet PO 03/22/25 16:18 1 tab Q8HR PRN Administration PAIN SCALE 4-10(Mod-Sev Al Hydrox/Mg Hydrox/Simethicone 15 ml 03/18/25 13:40 03/18/25 13:47 Mg Hyd/Al Hyd/Leslie (Maalox Reg) Susp 30 Ml Udc PO 04/17/25 13:39 15 ml QID PRN Administration UPSET STOMACH/INDIGESTION Albuterol/Ipratropium 3 ml 03/16/25 00:04 Albuterol/Ipratropium (Duoneb) Rt Dominique 3 Ml Nebu INH 04/15/25 00:03 Q2HR PRN SHORTNESS OF BREATH OR WHEEZE Albuterol/Ipratropium 3 ml 03/16/25 01:00 03/18/25 12:16 Albuterol/Ipratropium (Duoneb) Rt Dominique 3 Ml Nebu INH 04/15/25 00:59 3 ml Q6HRRT DARLENE Administration Apixaban 5 mg 03/17/25 16:25 03/18/25 08:15 Apixaban 2.5 Mg Tablet PO 04/16/25 16:24 5 mg BID DARLENE Administration Azithromycin 500 mg 03/16/25 09:00 03/18/25 08:13 Azithromycin 250 Mg Tablet PO 03/23/25 08:59 500 mg QDAY DARLENE Administration Cyclobenzaprine HCl 10 mg 03/18/25 13:40 03/18/25 13:48 Cyclobenzaprine 5 Mg Tablet PO 04/17/25 13:39 10 mg BID PRN Administration MUSCLE SPASMS Digoxin 0.125 mg 03/16/25 13:15 03/18/25 08:14 Digoxin 0.125 Mg Tablet PO 04/15/25 13:14 0.125 mg QDAY DARLENE Administration Famotidine 20 mg 03/18/25 13:45 03/18/25 13:48 Famotidine 20 Mg Tablet PO 04/17/25 13:44 20 mg QDAY DARLENE Administration Ceftriaxone Sodium/Dextrose 1 gm in 50 mls @ 100 mls/hr 03/16/25 00:11 03/18/25 08:15 Rocephin/D5w 1gm Iv Premix IV 03/23/25 00:10 100 mls/hr QDAY DARLENE Administration Lidocaine 1 patch 03/17/25 16:19 03/18/25 13:22 Lidocaine 5% 1 Patch TOP 04/16/25 16:18 1 patch UD PRN Administration PAIN Protocol Metoprolol Succinate 100 mg 03/18/25 18:00 Metoprolol Succinate Xl 25 Mg Tabcr PO 03/18/25 18:01 X1 ONE Metoprolol Succinate 100 mg 03/19/25 09:00 Metoprolol Succinate Xl 25 Mg Tabcr PO 04/18/25 08:59 BID DARLENE Ondansetron HCl 4 mg 03/16/25 00:04 Ondansetron Inj 2 Mg/Ml Inj 2 Ml IVP 04/15/25 00:03 Q6H PRN NAUSEA OR VOMITING Protocol Sennosides 1 tab 03/16/25 09:00 03/18/25 08:15 Senna Tablet PO 04/15/25 08:59 1 tab QDAY DARLENE Administration Protocol Plan Patient is a 63-year-old male with a past medical history of hypertension, chronic atrial fibrillation, status post AV jame ablation for tachycardia, status post maker implantation with VV I pacemaker, gout, negative coronary angiogram, concern for extensive lymphadenopathy, significant weight loss, who followed up at [facility] with a apparent negative biopsy that was inconclusive. 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 Patient was admitte don 03/16/2025 for acute hypoxic respiratory failure secondary to large right pleaural effusion and Afib w/ rvr #Atrial fibrillation with RVR #Atrial fibrillation #Status post ablation #status post pacemaker #negative coronary angiogram Patient has a past medical history of atrial fibrillation previously rate controlled on metoprolol titrate 100 mg p.o. twice daily and digoxin 0.125 mg p.o. daily. Patient arrived with atrial fibrillation with RVR was started on the drip. This morning on youth nutritional monitor patient noted to have a heart rate between 110 and 130 which fluctuated still A-fib. A-fib with RVR likely triggered by large right pleural effusion likely superimposed with pneumonia. Negative for PE. Echo (03/17/2025): Normal LV size Estimated EF 55-60%. Diastolic function could not be evaluated because of A-fib. Mild RV enlargement. Normal RVSP. Moderate MR and moderate TR with trace AI Severe biatrial dilatation. Dilated IVC. No pericardial effusion. Moderate aortic valve sclerosis without stenosis.. EKG on admission noted with A-fib with RVR, heart rate 140, QTc 451, QRS past 91. Troponin within normal limits. Plan -Digoxin 0.125 mg p.o. once daily, additional dose of digoxin given 0.125 mg po X 1 (03/18/2025) monitor K. 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 Echo Read. 03/17/2025: s/p thoracentesis. Patient had successful ultrasound guided thoracentesis with 2650 cc of pleural fluid removed. Lights Criteria noted to be Exudative. Given past medical history of castelman's disease, pleural effusion are known to occur. Patient would need to follow up with specialist in [facility]. Diagnostics Lights Criteria: Positive for exudative Effusion Chest CTA (03/15/2025): Bilateral subcentimeter pulmonary nodules, pneumonia in the right middle lobe and right lower lobe, negative for PE, extensive mediastinal lymphadenopathy, large right pleural effusion. Chest x-ray: Mild to moderate heart failure, prominent vascular congestion with Gerardo hilar basilar edema, suspicious for superimposed pneumonia in the right base. Plan -Ceftriaxone and azithromycin (03/16/2025) -Blood culture 48 hrs negative -Pleural Fluid pending - DuoNebs -Cocci Negative #Left clavicular suspicious mass #Lymphadenopathy #Castleman's disease Per patient history, diagnosed with Castleman's disease on Sylvant infusion and oral steriods. Per chart review, patient was referred to [facility] for lymphadenopathy, or biopsy was performed and results were negative for malignancy, patient was subsequently diagnosed with Castleman's disease. Concern for worsening suspicious mass that is fluctuant nontender and uniform at the supra clavicular region. Echo (12/10/2024): Normal LV size and function. Estimated LVEF 60-65%. Diastolic dysfunction present but cannot grade due to afib.RV size is moderately increased. Device wire visualized in the RV. Normal RV function Moderate TR eccentric. TV peak velocity could be underestimated. Estimated RVSP 38mmHg, including RAP. Severely enlarged LA and RA. Mild to Moderate MR. Dilated IVC. Soft tissue neck CT (03/15/2025): Extensive abnormal cervical supraclavicular lymphadenopathy suspicious for metastatic disease. Partially visualized extensive mediastinal lymphadenopathy Plan -Primary team following - Requesting records from [facility] #Hypertension Home medication of lisinopril consider holding given metoprolol succinate 100 mg twice daily, continue to monitor Plan -Home medication of lisinopril, currently holding #Hyperuremia/gout Home medication of allopurinol, denied any tenderness or pain to musculoskeletal Plan -Consider resuming allopurinol given no VIOLETA Disposition: admitted for acute hypoxic respiratory failure and r. pleural effusion. Cardiology following for Afib w/ rvr Fluids: None Feeding: Cardiac diet Thrombo prophylaxis:Heparin Gastric Ulcer prophylaxis: P.o. Protonix CODE STATUS: Full code - The patient's plan was discussed with attending Dr. Moi Lu MD PGY1 Internal Medicine Attending Provider Attestation/Addendum I have personally seen and examined the patient separately on the above date of service and discussed the plan of care with the resident. I reviewed the resident Dr. Samira Lu consultation progress note and agree with the resident findings and plan in the note above and have also edited the documentation to reflect my findings and plan. Frank Prater M.D. Interventional Cardiology
--- NOTE | 2025-03-18 23:26 | PC.NURSE ---
REPORT GIVEN TO ENEDINA CARBAJAL TO ASSUME CARE.
[2025-03-19] VITALS (10 sets, daily range): BP systolic 105–138; BP diastolic 70–91; PULSE 71–120; RESP 14–97; TEMP 36–36.6; O2SAT 90–98; BMI 33.0
[2025-03-19 06:22] LABS: Phosphorous 3.1 mg/dL (2.4-5.1)
[2025-03-19 08:49] LABS: Basophils # (Auto) 0.1 Thou/mm3 (0.0-0.2); Basophils % (Auto) 1 % (0-2.5); Eosinophils # (Auto) 0.4 Thou/mm3 (0.0-0.5); Eosinophils % (Auto) 5 % (0-10); Hematocrit 40.3 % (41.0-53.0); Hemoglobin 13.8 g/dL (13.5-16.0); Immature Granulocytes % (Auto) 2 % (0-0); Lymphocytes # (Auto) 1.3 Thou/mm3 (1.0-4.8); Lymphocytes % (Auto) 14 % (10-50); Mean Corpuscular HGB Conc 34.2 g/dl (31.0-37.0); Mean Corpuscular Hemoglobin 33.6 pg (25.0-35.0); Mean Corpuscular Volume 98 fL (80-100); Monocytes # (Auto) 0.9 Thou/mm3 (0.0-0.8); Monocytes % (Auto) 10 % (0-12); Neutrophils # (Auto) 6.3 Thou/mm3 (1.8-7.7); Neutrophils % (Auto) 69 % (37-80); Nucleated Red Blood Cell % 0 /100 WBC (0); Platelet Count 197 Thou/mm3 (140-440); RDW Standard Deviation 52.4 fL (35.1-43.9); Red Blood Count 4.11 Miln/mm3 (4.50-5.90); White Blood Count 9.2 Thou/mm3 (3.8-10.6)
[2025-03-19] MEDS: AZITHROMYCIN 250 MG TABLET 500 MG PO (08:56)
[2025-03-19] MEDS: cefTRIAXone/D5w 1gm IV premix 1 GM/50 ML BAG IV (08:56)
[2025-03-19] MEDS: METOPROLOL SUCCINATE XL 25 MG TABCR 100 MG PO (08:57)
[2025-03-19] MEDS: APIXABAN 2.5 MG TABLET 5 MG PO (08:58)
[2025-03-19] MEDS: SENNA TABLET 1 TAB PO (08:58)
[2025-03-19] MEDS: DIGOXIN 0.125 MG TABLET PO ×2 (08:58→10:31)
[2025-03-19] MEDS: FAMOTIDINE 20 MG TABLET PO (08:58)
[2025-03-19 09:14] LABS: Alanine Aminotransferase 9 U/L (10-49); Albumin, Serum 3.7 gm/dL (3.4-4.8); Albumin/Globulin Ratio 1.3 (1.2-2.2); Alkaline Phosphatase 160 U/L (46-116); Anion Gap 11 (7-16); Aspartate Amino Transferase 14 U/L (0-34); BUN/Creatinine Ratio 14 Ratio (12-20); Bilirubin,Total 1.2 mg/dL (0.3-1.2); Blood Urea Nitrogen 14 mg/dL (9-23); Calcium 8.7 mg/dL (8.3-10.6); Calcium (Corrected) 8.9 mg/dL (8.5-10.1); Carbon Dioxide 23.2 mMol/L (20.0-31.0); Chloride 104 mMol/L (98-107); Estimated Creatinine Clearance 95.9 mL/min (>60); Globulin 2.8 gm/dL (2.3-3.5); Glucose 102 mg/dL (74-106); Osmolality,Calculated 276 (275-295); Potassium 4.1 mMol/L (3.4-5.1); Sodium 138 mMol/L (136-145); Total Protein 6.5 gm/dL (5.7-8.2); eGFR > 60 See Note
--- NOTE | 2025-03-19 12:39 | PC.SS ---
Follow up note: Possible d/c if heart rate is stable. Pt will return home upon dc.
--- NOTE | 2025-03-19 14:00 | ESPR_ITS ---
Documentation for date of: 03/19/25 Subjective Subjective Interval history: Patient is a 63-year-old male with a past medical history of hypertension, chronic atrial fibrillation, status post AV jame ablation for tachycardia, status post maker implantation with VV I pacemaker, gout, negative coronary angiogram, concern for extensive lymphadenopathy, significant weight loss, who followed up at [facility] with a apparent negative biopsy that was inconclusive. 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 Patient presented to the emergency room via EMS with a chief complaint of cough ongoing for 1 month and enlarged mass that is fluctuant soft and located near the left clavicular area. Patient decided to follow-up with the emergency room as shortness of breath worsen despite starting amoxicillin clodronate 125 prescribed by the emergency room. Patient denied lower peripheral edema, orthopnea present, denied paroxysmal nocturnal dyspnea. Previous ejection fraction per chart review noted to be 60 to 65%. Patient denied past medical history of heart failure. Negative for chest pressure or palpitations. Saturating well on 4 L nasal cannula, at spO95%. Patient is still Afib w/ rvr with ranges from 110-140s. 03/17/2025: NO chief complains. No Afib w/ rvr noted on tele. Improved dyspnea. No chest pain and denied palpitations. Lower suspicious mass decreasing in size. Patient scheduled for thoracentesis, Eliquis continues to be on hold, resumed after procedure if no signs of bleeding noted. Diltiazem stopped AM. Heparin stopped overnight. Additional dose of digoxin 125 mcg PO given. Metoprolol XL 100 BID-->decreased to qday by primary team. consider adding holding parameters. 2650 cc pleural fluid removed 03/18/2025: No overnight events. Patient denied chest pain or shortness of breath. Positive for palpitations. A fib w/ rvr HR 130s. Resume Metoprolol 100 mg BID. Please give additional dose of digoxin 125 mcg. Continue to monitor rate and BP. Add holding parameters for Metoprolol if BP <120. Cytology pending on pleural fluid. Culture pending on pleural fluid. 03/19/2025: Patient examined at bedside. Patient is set to be discharged, likely. Discharge patient on Metoprolol 100 mg BID. Digoxin 250 mcg. Please follow up with cardiology, Dr. Marquez, for current medications that are being held. Digoxin levels within one week of discharge. Please follow up with pleural culture and any other pending labs. Exam Vital Signs Temp Pulse Resp BP Pulse Ox O2 Del Method O2 Flow Rate 97 F 114 H 15 138/91 H 95 Room Air 2 03/19/25 15:22 03/19/25 15:22 03/19/25 15:22 03/19/25 15:22 03/19/25 15:22 03/19/25 15:22 03/19/25 12:00 Narrative Exam General Appearance: Alert & Oriented X3, well-nourished male who is lying in bed in sitting up in bed with no increased work of breathing noted HEENT: Skull symmetrical and atraumatic. Conjunctivae pale pink and moist. Pupils equal, round, reactive to light and accommodation (PERRL). External ear without lesion or discharge. Soft round, fluctuant mass appreciated near left clavicle region, nontender to touch, no erythema noted, not warm to touch- decreasing in size. Cardio: Normal Rate and Rhythm with S1 and S2 heart sounds. No murmurs or extra heart sounds auscultated. No bruits on carotid auscultation. No peripheral edema or cyanosis. Lungs: Symmetric with good expansion. Chest and back non-tender. Decreased vesicular breath sounds noted over right lung with crackles noted. Abdomen: Non-tender, Non-distended, Normal Reactive Bowel Sounds Neuro: Alert, cooperative, oriented to person, place, and time. Speech clear. CN grossly intact. Upper motor strength 5/5 and Lower motor strength 5/5. Sensation intact. Objective Labs 03/19/25 05:17 03/19/25 05:17 Labs: Laboratory Results - last 24 hr 03/19/25 05:17 WBC 9.2 RBC 4.11 L Hgb 13.8 Hct 40.3 L MCV 98 MCH 33.6 MCHC 34.2 RDW Std Deviation 52.4 H Plt Count 197 Neut % (Auto) 69 Lymph % (Auto) 14 [place] % (Auto) 10 Eos % (Auto) 5 Baso % (Auto) 1 Neut # (Auto) 6.3 Lymph # (Auto) 1.3 [place] # (Auto) 0.9 H Eos # (Auto) 0.4 Baso # (Auto) 0.1 Immature Gran # (Auto) 0.20 H Absolute Nucleated RBC 0.00 Immature Gran % 2 H Nucleated RBC % 0 Sodium 138 Potassium 4.1 Chloride 104 Carbon Dioxide 23.2 Anion Gap 11 BUN 14 Creatinine 1.0 Estim Creat Clear Calc 95.9 eGFR > 60 BUN/Creatinine Ratio 14 Glucose 102 Calculated Osmolality 276 Calcium 8.7 Corrected Calcium 8.9 Phosphorus 3.1 Total Bilirubin 1.2 AST 14 ALT 9 L Alkaline Phosphatase 160 H Total Protein 6.5 Albumin 3.7 Globulin 2.8 Albumin/Globulin Ratio 1.3 ABG Interpretation ABG results: 03/15/25 19:15 VBG pH 7.42 VBG pCO2 43 VBG pO2 48 VBG Base Excess 3 Quality Measures Quality Measures VTE prophylaxis Advance care planning discussed with:: patient Assessment & Plan Plan Patient is a 63-year-old male with a past medical history of hypertension, chronic atrial fibrillation, status post AV jame ablation for tachycardia, status post maker implantation with VV I pacemaker, gout, negative coronary angiogram, concern for extensive lymphadenopathy, significant weight loss, who followed up at [facility] with a apparent negative biopsy that was inconclusive. 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 Patient was admitte don 03/16/2025 for acute hypoxic respiratory failure secondary to large right pleaural effusion and Afib w/ rvr #Atrial fibrillation with RVR #Atrial fibrillation #Status post ablation #status post pacemaker #negative coronary angiogram Patient has a past medical history of atrial fibrillation previously rate controlled on metoprolol titrate 100 mg p.o. twice daily and digoxin 0.125 mg p.o. daily. Patient arrived with atrial fibrillation with RVR was started on the drip. This morning on medicaid service coordinator patient noted to have a heart rate between 110 and 130 which fluctuated still A-fib. A-fib with RVR likely triggered by large right pleural effusion likely superimposed with pneumonia. Negative for PE. Echo (03/17/2025): Normal LV size Estimated EF 55-60%. Diastolic function could not be evaluated because of A-fib. Mild RV enlargement. Normal RVSP. Moderate MR and moderate TR with trace AI Severe biatrial dilatation. Dilated IVC. No pericardial effusion. Moderate aortic valve sclerosis without stenosis.. EKG on admission noted with A-fib with RVR, heart rate 140, QTc 451, QRS past 91. Troponin within normal limits. Plan -Digoxin 0.125 mg p.o. once daily-->increased to Digoxin 0.250 mg P.O. Please follow up with cardiology -Metoprolol XL 100 mg twice daily -Eliquis 5 mg BID -D/C Metoprolol Tartrate upon discharge. 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 Echo Read. 03/17/2025: s/p thoracentesis. Patient had successful ultrasound guided thoracentesis with 2650 cc of pleural fluid removed. Lights Criteria noted to be Exudative. Given past medical history of castelman's disease, pleural effusion are known to occur. Patient would need to follow up with specialist in [facility]. Diagnostics Lights Criteria: Positive for exudative Effusion Chest CTA (03/15/2025): Bilateral subcentimeter pulmonary nodules, pneumonia in the right middle lobe and right lower lobe, negative for PE, extensive mediastinal lymphadenopathy, large right pleural effusion. Chest x-ray: Mild to moderate heart failure, prominent vascular congestion with Gerardo hilar basilar edema, suspicious for superimposed pneumonia in the right base. Plan -Ceftriaxone and azithromycin (03/16/2025) -Blood culture 48 hrs negative -Pleural Fluid pending, please follow up. - DuoNebs -Cocci Negative #Left clavicular suspicious mass #Lymphadenopathy #Castleman's disease Per patient history, diagnosed with Castleman's disease on Sylvant infusion and oral steriods. Per chart review, patient was referred to [facility] for lymphadenopathy, or biopsy was performed and results were negative for malignancy, patient was subsequently diagnosed with Castleman's disease. Concern for worsening suspicious mass that is fluctuant nontender and uniform at the supra clavicular region. Echo (12/10/2024): Normal LV size and function. Estimated LVEF 60-65%. Diastolic dysfunction present but cannot grade due to afib.RV size is moderately increased. Device wire visualized in the RV. Normal RV function Moderate TR eccentric. TV peak velocity could be underestimated. Estimated RVSP 38mmHg, including RAP. Severely enlarged LA and RA. Mild to Moderate MR. Dilated IVC. Soft tissue neck CT (03/15/2025): Extensive abnormal cervical supraclavicular lymphadenopathy suspicious for metastatic disease. Partially visualized extensive mediastinal lymphadenopathy Plan -Primary team following - Requesting records from [facility] #Hypertension Home medication of lisinopril consider holding given metoprolol succinate 100 mg twice daily, continue to monitor Plan -Home medication of lisinopril, currently holding #Hyperuremia/gout Home medication of allopurinol, denied any tenderness or pain to musculoskeletal Plan -Consider resuming allopurinol given no VIOLETA Disposition: admitted for acute hypoxic respiratory failure and r. pleural effusion. Cardiology following for Afib w/ rvr Fluids: None Feeding: Cardiac diet Thrombo prophylaxis:Heparin Gastric Ulcer prophylaxis: P.o. Protonix CODE STATUS: Full code - The patient's plan was discussed with attending Dr. Moi Lu MD PGY1 Internal Medicine Attending Provider Attestation/Addendum I have personally seen and examined the patient separately on the above date of service and discussed the plan of care with the resident. I reviewed the resident Dr. Samira Lu consultation progress note and agree with the resident findings and plan in the note above and have also edited the documentation to reflect my findings and plan. Frank Pratre M.D. Interventional Cardiology
--- NOTE | 2025-03-19 15:13 | CHAP ---
Patient was visited by a Spiritual Care Volunteer on 03/17/2025 between 0930 and 1200 and received comfort, encouragement and/or prayer.
--- NOTE | 2025-03-19 15:33 | ESDS_ITS ---
Planned Discharge Date 03/19/25 DS: Providers Provider Date of admission: 03/16/25 00:05 Primary care physician: Physician No Primary/Family Admitting Provider: Radha Garcia MD Attending Provider on Admission: Sarthak Herbert DO Consults: 03/16/25 07:16 Consult to Cardiology Routine Comment: A Fib with RVR Consulting Provider: Frank Prater 03/16/25 10:06 Referral [facility] Routine Comment: Referral Respiratory Therapy Routine Comment: Attending Provider on DC: Sarthak Herbert DO Discharging Provider: Sarthak Herbert DO Anticipated date of discharge: 03/19/25 DS: Diagnosis Problem List Completed Was Problem List Reviewed/Reconciled?: Yes Hospital Course Hospital Course Hospital course: Hospital Course: Mr. Pena is a 64-year-old male with past medical history of Multicentric Castleman's disease, atrial fibrillation on Eliquis (follows Dr Marquez), heart failure with preserved ejection fraction, EF 55 to 60%, hypertension and sick sinus syndrome status post pacemaker placement in 2007 who presented to [facility] emergency department on March 16, 2025 with a chief complaint of shortness of breath. Chest x-ray and CT scan showed right base pneumonia with right pleural effusion, patient was admitted to hospital started on IV antibiotics, Eliquis was held and patient was on heparin drip due to underlying atrial fibrillation, patient was taken to catheterization lab and underwent thoracentesis done by interventional radiology patient had about 2.650 L fluid removed, consistent with exudative effusion per lights criteria. Patient was also started on diltiazem drip in the emergency department due to atrial fibrillation with rapid ventricular response, eventually patient was transitioned off dill drip, antiarrhythmic medication was optimized to metoprolol succinate 100 mg twice daily and digoxin was increased to 0.25 Mg. Cardiology was consulted and following the patient throughout the hospitalization. Further plan is to discharge patient home on oral antibiotics and follow-up with primary care physician in 1 to 2 weeks. Patient to follow-up outpatient with cardiology in 1 week with digoxin level and also instructed to follow-up with heme oncologist at [facility]. Patient is stable for discharge, responded well to hospital treatment. Discharge diagnosis: #Atrial fibrillation with RVR, resolved #Heart failure with preserved ejection fraction, EF 55 to 60%, diastolic heart failure #Status post pacemaker, history of sick sinus syndrome #Acute hypoxic respiratory failure, resolved secondary to #Community-acquired pneumonia, failed outpatient treatment #Right pleural effusion, ?parapneumonic effusion #Multicentric lymphadenopathy #Castleman disease, multicentric #Hypertension #GERD #Hyperuricemia/Gout Case discussed with Attending Dr. Herbert. Pramod Slaes PGY1 Disclaimer: This note was dictated by speech recognition. Minor errors in millinery designer may be present due to voice recognition software. Status at Discharge Functional status at discharge: independent ambulation Overall status at discharge: patient is progressing back to baseline Time Spent with Patient Time attestation: Total time spent providing and/or coordinating discharge services: Time spent: Greater than 30 minutes Exam Vital Signs Temp Pulse Resp BP Pulse Ox O2 Del Method O2 Flow Rate 97 F 114 H 15 138/91 H 95 Room Air 2 03/19/25 15:22 03/19/25 15:22 03/19/25 15:22 03/19/25 15:22 03/19/25 15:22 03/19/25 15:22 03/19/25 12:00 Narrative Exam General Appearance: Alert & Oriented X3, well-nourished male who is lying in bed in sitting up in bed with no increased work of breathing noted HEENT: Skull symmetrical and atraumatic. Conjunctivae pale pink and moist. Pupils equal, round, reactive to light and accommodation (PERRL). External ear without lesion or discharge. Soft round, fluctuant mass appreciated near left clavicle region, nontender to touch, no erythema noted, not warm to touch- decreasing in size. Cardio: Normal Rate and Rhythm with S1 and S2 heart sounds. No murmurs or extra heart sounds auscultated. No bruits on carotid auscultation. No peripheral edema or cyanosis. Lungs: Symmetric with good expansion. Chest and back non-tender. Decreased vesicular breath sounds noted over right lung with crackles noted. Abdomen: Non-tender, Non-distended, Normal Reactive Bowel Sounds Neuro: Alert, cooperative, oriented to person, place, and time. Speech clear. CN grossly intact. Upper motor strength 5/5 and Lower motor strength 5/5. Sensation intact. Discharge Plan Plan Patient Disposition: HOME (Self Care) Patient condition on transfer: Stable Prescriptions/Referrals Prescriptions/Med Rec: New cyclobenzaprine 10 mg tablet 10 mg PO BID PRN (Reason: Muscle Spasms) 7 Days Qty: 20 0RF digoxin 250 mcg (0.25 mg) tablet 250 mcg PO QDAY Qty: 30 0RF lidocaine 5 % Adhesive Patch,Medicated 1 patch top UD PRN (Reason: Pain) 7 Days Qty: 10 0RF metoprolol succinate 100 mg tablet extended release 24 hr 100 mg PO BID 30 Days Qty: 60 0RF amoxicillin-pot clavulanate 875-125 mg tablet 1 tab PO BID 7 Days Qty: 14 0RF Continued Eliquis 5 mg Tablet 5 mg PO BID allopurinol 300 mg tablet 300 mg PO DAILY Patient Comments: TAKE 1 TABLET BY MOUTH ONCE DAILY pantoprazole 40 mg tablet,delayed release (DR/EC) 40 mg PO DAILY Patient Comments: TAKE 1 TABLET BY MOUTH ONCE DAILY Held bumetanide 2 mg tablet 2 mg PO QDAY Qty: 30 0RF Hold Instructions: Resume on 03/26/25. Follow up with heat plant specialist before resuming lisinopril 20 mg tablet 20 mg PO DAILY Hold Instructions: Resume on 03/26/25. Follow up with heat plant specialist before resuming Patient Comments: TAKE 1 TABLET BY MOUTH ONCE DAILY Discontinued amoxicillin-pot clavulanate 875-125 mg tablet 1 tab PO BID MDD 2 Qty: 20 0RF digoxin 125 mcg (0.125 mg) tablet 0.125 mg PO QDAY Patient Comments: TAKE 1 TABLET BY MOUTH ONCE DAILY spironolactone 25 mg Tablet 25 mg PO QAM Qty: 30 0RF diltiazem HCl 240 mg capsule,extended release 24 hr 240 mg PO QAM Qty: 30 0RF metoprolol tartrate 100 mg tablet 100 mg PO BID Patient Comments: TAKE 1 TABLET BY MOUTH TWICE DAILY WITH FOOD methylprednisolone 4 mg tablets,dose pack 4 mg PO DAILY Patient Comments: USE DIRECTED Referrals: No Primary/Family,Physician [Primary Care Provider] - Kervin Marquez MD [Physician] - Outpatient Orders (i.e. Home Health, Labs, Imaging): Digoxin (Routine) Timeframe: 1 Week Location: Determined by Patient Ordered By: Pramod Sales Patient/Caregiver Discharge Instructions Discharge Activity: activity as tolerated Other Discharge Activity Instructions:: Continue Augmentin for 5 more days to complete the treatment for pneumonia. Stop taking metoprolol tartrate, we have started you on metoprolol succinate, take 100 mg twice daily. We have increased your digoxin dose to 250 mcg daily. Repeat digoxin levels and follow-up with cardiology in 7 days. Take Flexeril as needed for muscle spasms, use lidocaine patch as needed for back pain. Continue allopurinol, Eliquis and Protonix daily. Hold Bumex and lisinopril, follow-up with your heat plant specialist before resuming. Schedule appointment with your heme-oncologist at [facility] for follow-up of Castleman's disease. Inform your infusion center about your recent infection and schedule appointment as per your physician. Follow-up with primary care physician in 1 to 2 weeks. Follow-up on your pathology results from the pleural effusion. Return to emergency department if symptoms worsen. Other Discharge Diet Instructions: Cardiac diet, fluid restriction 1.5 to 2 L. Education Materials: Pleural Effusion, Thoracentesis Dc, AFL/Afib, What Is Pneumonia?, When You Have Pneumonia Print Language: German Stand Alone Forms: [employer] Award Info., Patient Portal Info Letter Discharge Order Discharge Orders: Discharge (Routine); Ordered 03/19/25 Ordered By: Pramod Sales Quality Discharge Quality Measures VTE prophylaxis MD Attestestation MD Attestation I have discussed and was present for the essential components of the discharge history, physical examination, diagnosis, and discharge treatment plan with the resident. I agree with the patient's discharge care as documented by the resident and amended herein by me. Quan Herbert, . The patient understood all discharge instructions, all questions were answered satisfactorily. The patient was instructed to return to the Emergency Department is symptoms worsened or persisted. Patient was stable, is afebrile and tolerating p.o. intake at time of discharge home. Digoxin levels increased, we did give the patient a laboratory slip to get repeat digoxin levels in 1 week prior to cardiology visit. Patient also discharged on a short course of Augmentin for pneumonia. Although this document has been carefully reviewed, there may still be some phonetic and other typographical errors. These errors are purely grammatical due to imperfections in the software program and should not be construed in any way to compromise the substance of the patient's medical care during this visit.
== END 2025-03-19 15:25 | disposition home or self-care (01) | DRG 193 ==
LOC: SERX 20:42 → SERHOLD 03-16 00:21 → S2NX 03-16 07:54
PROVIDERS: Internal Medicine Cardiovascular Disease; Nurse Practitioner Family; Student in an Organized Health Care Education/Training Program; Admitting Provider Student in an Organized Health Care Education/Training Program; Emergency Provider Emergency Medicine; Visit Provider Student in an Organized Health Care Education/Training Program
DX: J18.9 Pneumonia, unspecified organism (principal); J96.01 Acute respiratory failure with hypoxia; D47.Z2 Castleman disease; I50.32 Chronic diastolic (congestive) heart failure; N39.0 Urinary tract infection, site not specified; I48.20 Chronic atrial fibrillation, unspecified; J91.8 Pleural effusion in other conditions classified elsewhere; I49.5 Sick sinus syndrome; I11.0 Hypertensive heart disease with heart failure; Z95.0 Presence of cardiac pacemaker; Z79.01 Long term (current) use of anticoagulants; I48.0 Paroxysmal atrial fibrillation; K21.9 Gastro-esophageal reflux disease without esophagitis; E79.0 Hyperuricemia without signs of inflammatory arthritis and tophaceous disease; F12.90 Cannabis use, unspecified, uncomplicated; R22.1 Localized swelling, mass and lump, neck; E66.01 Morbid (severe) obesity due to excess calories; Z68.33 Body mass index [BMI] 33.0-33.9, adult; Z79.899 Other long term (current) drug therapy; Z87.891 Personal history of nicotine dependence; I35.8 Other nonrheumatic aortic valve disorders
CPT/HCPCS: 36415; 36600; 70450; 70491; 71045; 71275; 74177; 80053; 80162; 81001; 82150; 82248; 82803; 82945; 83605; 83615; 83735; 83880; 84100; 84145; 84157; 84439; 84443; 84484; 84550; 85025; 85379; 85610; 85652; 85730; 86140; 86331; 86635; 87040; 87070; 87075; 87086; 87205; 87400; 87811; 89051; 93306; 94640; 96365; 96366; 96367; 99285; A4649; A9270; C1729; J0696; J1644; J3490; Q9967

== ENCOUNTER → 2025-03-31 | Outpatient (CLI) | payer MEDICARE, SELFPAY ==
[2025-03-31 12:24] LABS: Digoxin 1.8 ng/mL (0.8-2.0)
== END | disposition home or self-care (01) ==
LOC: COPL 10:24
PROVIDERS: PCP Internal Medicine
DX: I48.91 Unspecified atrial fibrillation (principal)
CPT/HCPCS: 36415; 80162

== ENCOUNTER → 2025-05-05 | Outpatient (CLI) | payer MEDICARE, SELFPAY ==
[2025-05-05 09:59] LABS: Basophils # (Auto) 0.1 Thou/mm3 (0.0-0.2); Basophils % (Auto) 1 % (0-2.5); Eosinophils # (Auto) 0.2 Thou/mm3 (0.0-0.5); Eosinophils % (Auto) 2 % (0-10); Hematocrit 45.8 % (41.0-53.0); Hemoglobin 15.7 g/dL (13.5-16.0); Immature Granulocytes Auto 0.07 Thou/mm3 (0.00-0.00); Lymphocytes # (Auto) 2.0 Thou/mm3 (1.0-4.8); Lymphocytes % (Auto) 20 % (10-50); Mean Corpuscular HGB Conc 34.3 g/dl (31.0-37.0); Mean Corpuscular Hemoglobin 33.9 pg (25.0-35.0); Mean Corpuscular Volume 99 fL (80-100); Monocytes # (Auto) 0.8 Thou/mm3 (0.0-0.8); Monocytes % (Auto) 8 % (0-12); Neutrophils # (Auto) 7.0 Thou/mm3 (1.8-7.7); Neutrophils % (Auto) 68 % (37-80); Nucleated Red Blood Cell # 0.00 Thou/mm3 (0.00-0.00); Nucleated Red Blood Cell % 0 /100 WBC (0); Platelet Count 204 Thou/mm3 (140-440); RDW Standard Deviation 49.9 fL (35.1-43.9); Red Blood Count 4.63 Miln/mm3 (4.50-5.90); White Blood Count 10.2 Thou/mm3 (3.8-10.6)
[2025-05-05 10:08] LABS: Alanine Aminotransferase 12 U/L (10-49); Albumin, Serum 4.5 gm/dL (3.4-4.8); Albumin/Globulin Ratio 1.6 (1.2-2.2); Alkaline Phosphatase 114 U/L (46-116); Anion Gap 11 (7-16); Aspartate Amino Transferase 14 U/L (0-34); BUN/Creatinine Ratio 19 Ratio (12-20); Bilirubin,Total 0.9 mg/dL (0.3-1.2); Blood Urea Nitrogen 19 mg/dL (9-23); Calcium 9.5 mg/dL (8.3-10.6); Calcium (Corrected) 9.5 mg/dL (8.5-10.1); Carbon Dioxide 22.8 mMol/L (20.0-31.0); Cardiac Risk Estimate 3.5 RATIO (4.0-6.7); Chloride 107 mMol/L (98-107); Cholesterol 133 mg/dL (132-200); Creatinine (Component) 1.0 mg/dL (0.6-1.3); Globulin 2.8 gm/dL (2.3-3.5); Glucose 109 mg/dL (74-106); HDL Cholesterol 38 mg/dL (40-60); LDL Cholesterol,Calculated 80 mg/dL (0-130); Osmolality,Calculated 284 (275-295); Potassium 3.6 mMol/L (3.4-5.1); Sodium 141 mMol/L (136-145); Thyroid Stimulating Hormone 2.68 uIU/mL (0.55-4.78); Total Protein 7.3 gm/dL (5.7-8.2); Triglycerides 74 mg/dL (30-150); eGFR > 60 See Note
[2025-05-05 10:20] LABS: Prostate Specific Antigen 1.24 ng/mL (0-4.00)
[2025-05-05 10:34] LABS: Glucose Estimated Average 120 mg/dL (80-131); Hemoglobin A1C 5.8 % Hgb (4.8-6.0)
== END | disposition home or self-care (01) ==
LOC: COPL 08:04
PROVIDERS: PCP Internal Medicine; Referring Provider Internal Medicine; Visit Provider Internal Medicine
DX: Z00.01 Encounter for general adult medical examination with abnormal findings (principal); D47.Z2 Castleman disease; I48.91 Unspecified atrial fibrillation; M06.9 Rheumatoid arthritis, unspecified; R35.1 Nocturia
CPT/HCPCS: 36415; 80053; 80061; 83036; 84153; 84443; 85025

== ENCOUNTER → 2025-05-19 | Outpatient (CLI) | payer MEDICARE, SELFPAY ==
--- NOTE | 2025-05-19 12:52 | XR_ITS ---
Examination: PA lateral chest 2 views TECHNIQUE: Upright PA and lateral chest 2 views Date and time: May 19, 2025, 1333 hours INDICATIONS: Difficulty breathing this week. FINDINGS: Mild CHF. Mild pericardial contour. Prominent vascular congestion with perihilar basilar edema. Cardiac leads satisfactory position. Abnormal mediastinal lymphadenopathy on the right side including right hilar region. IMPRESSION: Mild CHF.
== END | disposition home or self-care (01) ==
LOC: CDIM 12:47
PROVIDERS: PCP Internal Medicine; Referring Provider Internal Medicine; Visit Provider Internal Medicine
DX: I50.9 Heart failure, unspecified (principal)
CPT/HCPCS: 71046

== ENCOUNTER 2025-05-25 08:52 | Emergency (ER) | payer MEDICARE, SELFPAY ==
[2025-05-25] VITALS (10 sets, daily range): BP systolic 109–139; BP diastolic 70–95; PULSE 95–133; RESP 17–22; TEMP 36.7–37.3; O2SAT 92–95
--- NOTE | 2025-05-25 09:19 | EKG_ITS ---
[facility] Test Date: 2025-05-25 Pat Name: SALVADOR GUTIERREZ Department: Room: - Gender: Male Demolition Specialist: : [id number] Requested By: Samira Joaquin Order Number: [id number] Reading MD: Samira Joaquin Measurements Intervals Alexander Rate: 133 P: GA: QRS: 54 QRSD: 90 T: -15 QT: 292 QTc: 435 Interpretive Statements ATRIAL FIBRILLATION WITH RAPID VENTRICULAR RESPONSE ABNORMAL QRS-T ANGLE [QRS-T AXIS DIFFERENCE > 60] Compared to ECG 03/15/2025 18:38:10 T-wave abnormality no longer present /store/S0/[id number].pdf
--- NOTE | 2025-05-25 09:21 | EDRME_ITS ---
Rapid Medical Screening Exam [facility] Arrival date/time: 05/25/25 08:52 Chief Complaint: Shortness of Breath/Dyspnea Time Seen by Provider: 05/25/25 09:07 Vital signs: Vital Signs Temperature 98.1 F 05/25/25 09:07 Pulse Rate 95 05/25/25 09:07 Respiratory Rate 18 05/25/25 09:07 Blood Pressure 137/95 H 05/25/25 09:07 Pulse Oximetry (%) 95 05/25/25 09:07 Oxygen Delivery Method Room Air 05/25/25 09:07 E Narrative: 65 y/o with Hx of Atrial Fibrillation, Congestive Heart Failure, Edema and Hypertension presents with worsening dyspnea and cough 2wk. states went to PCP and started on antibiotics but then taken off antibiotics once the x-ray was normal. But he is still coughing and cannot lay flat. States saw cardiology about a week ago and had echo and was told everything looked good. Denies being a smoker
--- NOTE | 2025-05-25 09:41 | XR_ITS ---
Examination: AP chest single view. Technique: AP portable semiupright chest single view. Date and time: May 25, 2025, 0952 hrs., Comparison May 19, 2025. Indications: Shortness of breath today, diagnosis atrial fibrillation. Findings: Moderate enlargement cardiac contour. Mild heart failure with prominent vascular congestion including central vascular engorgement. Superimposed pneumonia right base. Cardiac leads satisfactory position. Impression: Mild heart failure. Right base pneumonia.
--- NOTE | 2025-05-25 09:42 | PC.NURSE ---
Pt. here from home to room 4, pt. states he has been SOB X 2 days, pt. states the SOB is worse at night when he lays down, pt. states he coughs up clear phlegm. Pt. states he is undergoing treatment for Castleman's, pt. states he gets treatments every 3 weeks. Pt. states from his chest/ breast up feels full, pt. states he is burping and he feels it in his neck. Pt. has swelling to the left side of his neck, pt. states it's his lymph nodes and that is from the Castleman's. Pt. upper extremities are bruised bilateral, pt. lower extremities are mottled bilateral. Pt. states last night he couldn't stop passing gas.
--- NOTE | 2025-05-25 09:57 | PC.NURSE ---
Informed Dr. Knox that pt. can't stop burping. Pt. will sit up and sit forward and burps.
--- NOTE | 2025-05-25 10:00 | PD.EDSOB ---
ED SOB =RME/HPI General Chief Complaint: Shortness of Breath/Dyspnea Stated Complaint: DIFFICULTY CATCHING BREATH; A LOT OF MUCOUS Time Seen by Provider: 05/25/25 09:07 Arrival date/time: 05/25/25 08:52 Limitations: no limitations RME / HPI RME / HPI Narrative: 65 y/o with Hx of Atrial Fibrillation, Congestive Heart Failure, Edema and Hypertension presents with worsening dyspnea and cough 2wk. states went to PCP and started on antibiotics but then taken off antibiotics once the x-ray was normal. But he is still coughing and cannot lay flat. States saw cardiology about a week ago and had echo and was told everything looked good. Denies being a smoker DR. MARTINEZ MAIN ED EVALUATION: 65 year old male with history of atrial fibrillation, HFpEF (55-60% 02/2025), sick sinus syndrome s/p pacemaker placement, hypertension, Castleman's disease presents to the ED for evaluation of shortness of breath beginning 2 days ago. Described there to be a fullness sensation from the epigastric region that moves up his chest that is causing him to feel short of breath that is worse at night while laying down or after eating. Accompanied by the sensation to belch and productive cough (clear phlegm). Patient mentioned he consulted his PCP 2 days ago who prescribed an inhaler that he has used without relief. Additionally states years ago after being diagnosed with Castleman's disease, he had an EGD performed at [facility] and did not follow up regarding results. Denies fevers, chills, sweats, cough, abdominal pain, n/v/d, or urinary symptoms. Related Data Home Medications ?Medication ?Instructions ?Recorded ?Confirmed apixaban 5 mg tablet (Eliquis) 5 mg PO BID 12/12/23 03/16/25 allopurinol 300 mg tablet 300 mg PO DAILY 03/16/25 03/16/25 lisinopril 20 mg tablet 20 mg PO DAILY 03/16/25 03/16/25 Held on 03/19/25. Instructions: Resume on 03/26/25. Follow up with residential support worker before resuming pantoprazole 40 mg tablet,delayed 40 mg PO DAILY 03/16/25 03/16/25 release Previous Rx's ?Medication ?Instructions ?Recorded bumetanide 2 mg tablet 2 mg PO QDAY #30 tabs 12/14/23 Held on 03/19/25. Instructions: Resume on 03/26/25. Follow up with residential support worker before resuming digoxin 250 mcg (0.25 mg) tablet 250 mcg PO QDAY Atrial 03/19/25 Fibrillation #30 tabs Allergies Allergy/AdvReac Type Severity Reaction Status Date / Time No Known Allergies Allergy Verified 05/25/25 08:56 Review of Systems Review of Systems Systems Reviewed: All systems reviewed, normal except as documented Past Medical History Past Medical History CARDIAC: Positive Cardiac Disorders, Cardiac Arrhythmia, Atrial Fibrillation, Congestive Heart Failure, Congenital Heart Disease, Edema and Hypertension RESPIRATORY: Positive Bronchitis and Pneumonia MUSCULOSKELETAL: Positive Musculoskeletal Disorders, Arthritis and Osteoporosis OTHER HISTORY: Positive Chicken Pox, Measles and Mumps Family History FAMILY HISTORY: Positive Family Cardiac Disorders Surgical History SURGICAL: Positive Pacemaker and Joint Replacement Social History SMOKING STATUS: Never smoker SUBSTANCE USE: does not use ED Exam General Limitations: Present no limitations General appearance: Present alert, in no apparent distress and obese Head Head exam: Present atraumatic, normocephalic and normal inspection Eye Eye exam: Present normal appearance, PERRL and EOMI ENT ENT exam: Present normal exam, normal oropharynx and mucous membranes moist Neck Neck exam: Present normal inspection, full ROM, trachea midline and other (no JVD, carotids without bruits ) Chest Chest inspection: Present normal inspection and symmetric chest wall rise Respiratory Respiratory exam: Present normal lung sounds bilaterally Cardiovascular Cardiovascular exam: Present irregular rhythm (tachycardic ) and normal heart sounds Abdominal Exam Abdominal exam: Present soft and normal bowel sounds Extremities Exam Extremities exam: Present full ROM and other (trace edema BLE ) Back Exam Back exam: Present normal inspection and full ROM Neurological Exam Neurological exam: Present alert, oriented X3 and CN II-XII intact Psychiatric Psychiatric exam: Present normal affect and normal mood Skin Skin exam: Present warm, dry, intact, normal color and other (mild venous pattern of mottling to BLE ) Course Quality Measures none Orders Category Date Time Status CT Screening NOW Care 05/25/25 10:[address] Screening NOW Care 05/25/25 11:43 Active EKG (ED ONLY) *Do not use* NOW Care 05/25/25 09:[address] abdomen pelvis w con Stat Exams 05/25/25 11:[address] angio chest Stat Exams 05/25/25 10:15 Completed EKG (ED Only) Stat Exams 05/25/25 09:19 Draft XR chest 1V Stat Exams 05/25/25 09:41 Completed ABG [Arterial Blood Gas] Stat Lab 05/25/25 10:29 Completed BNP [B-Type Natriuretic Peptide] Stat Lab 05/25/25 09:45 Completed CBC Stat Lab 05/25/25 09:45 Completed CMP [Comprehensive Metabolic Panel] Stat Lab 05/25/25 09:45 Completed Digoxin Stat Lab 05/25/25 09:49 Completed Drug Screen,Urine Stat Lab 05/25/25 12:53 Completed Lipase Stat Lab 05/25/25 09:45 Completed Troponin I Stat Lab 05/25/25 09:45 Completed UA [Urinalysis] Stat Lab 05/25/25 12:53 Completed Acetaminophen Tab [Tylenol ES Tab] Med 05/25/25 13:51 Discontinued 1,000 mg PO X1 ONE Furosemide Inj [Lasix Inj] Med 05/25/25 13:20 Discontinued 40 mg IVP X1 ONE Levofloxacin [Levaquin] Med 05/25/25 12:18 Discontinued 500 mg PO X1 ONE Metoclopramide Inj [Reglan Inj] Med 05/25/25 10:15 Discontinued 10 mg IVP X1 ONE Metoprolol Tartrate Inj [Lopressor Inj] Med 05/25/25 13:20 Discontinued 5 mg IVP X1 ONE Metoprolol Tartrate Inj [Lopressor Inj] Med 05/25/25 14:59 Discontinued 5 mg IVP X1 ONE Pantoprazole Inj [Protonix Inj] Med 05/25/25 10:10 Discontinued 40 mg IVP X1 ONE Sodium Chloride 0.9% 1000 ml [Ns] 1,000 ml Med 05/25/25 10:30 Active IV 100 mls/hr Vital Signs Vital signs: Vital Signs Temperature 98.1 F 05/25/25 09:07 Pulse Rate 95 05/25/25 09:07 Respiratory Rate 18 05/25/25 09:07 Blood Pressure 137/95 H 05/25/25 09:07 Pulse Oximetry (%) 95 05/25/25 09:07 Oxygen Delivery Method Room Air 05/25/25 09:07 Pulse ox is 95% on room air which is adequate. Shortness of Breath / Dyspnea MDM Narrative MDM Narrative:: Carla Garcia am scribing for and in the presence of Dr. Martinez. 1425: Patient reports feeling improved. Patient data External records reviewed:: [facility] previous records Clinical information provided by:: patient Social determinants that could affect healthcare access:: none Patient has the following chronic illnesses:: atrial fibrillation, HFpEF (55-60% 02/2025), sick sinus syndrome s/p pacemaker placement, hypertension, Castleman's disease How is presenting disease/condition affected by chronic disease/condition?: exacerbated by Evaluation data The following diagnostics were reviewed and interpreted by me:: lab results, radiology exam(s) and EKG tracing(s) (05/25/2025 @ 09:21 AM. Atrial fibrillation with RVR, rate 133, QRS 90ms, QT 292ms. EKG @ 14:51. Atrial fibrillation with RVR, rate 115, nonspecific ST and T-wave changes) Lab and/or radiology exams considered but not ordered:: None Interpretation Summary: Ordering Physician: Jamie Martinez MD Date of Service: 05/25/25 Procedure(s): XR chest 1V Accession Number(s): [id number] cc: Jamie Martinez MD; Rashawn Lara MD~ Examination: AP chest single view. Technique: AP portable semiupright chest single view. Date and time: May 25, 2025, 0952 hrs., Comparison May 19, 2025. Indications: Shortness of breath today, diagnosis atrial fibrillation. Findings: Moderate enlargement cardiac contour. Mild heart failure with prominent vascular congestion including central vascular engorgement. Superimposed pneumonia right base. Cardiac leads satisfactory position. Impression: Mild heart failure. Right base pneumonia. Dictated By: Rashawn Lara MD Signed By: <Electronically signed by Rashawn Lara MD in OV> 05/25/25 1005 Ordering Physician: Jamie Martinez MD Date of Service: 05/25/25 Procedure(s): CT angio chest Accession Number(s): [id number] cc: Padmini Broussardit ; Jamie Martinez MD; Rashawn Lara MD~ Examination: CTA chest with intravenous contrast 2-D reconstructions 3-D reconstructions, vascular Date and time of exam: May 25, 2025, 1207 hrs. Indications: Coughing shortness of breath beginning 2 weeks ago. CTDI: vol (mGy) 15.8. DLP: (mGycm) 648. Technique: Multiple axial sections of the thorax have been obtained. 3 mm slice thickness, from below the hemidiaphragms to above the apices of the lungs. Mediastinal and lung density settings have been obtained. 2-D sagittal and coronal reconstructions. 3-D angiographic renderings, 3-D volume renderings, 3D post processing, vascular maximum intensity projections obtained. Contrast administered is 100 cc Isovue-370.. Low dose protocols were performed. One or more of the following dose reduction techniques were used; automated exposure control, adjustment of the mA and/or KV according to patient size, use of iterative reconstruction technique. Findings: Extensive bulky mediastinal lymphadenopathy including high periaortic, tracheobronchial, paratracheal, bilateral hilar and subcarinal No thoracic aortic aneurysmal dilatation. At least 10 subcentimeter metastatic pulmonary nodules No pulmonary artery filling defects. Heart failure, moderate enlargement cardiac contour with vascular congestion and perihilar edema, moderate right mild left pleural fluid Liver is irregular in contour No gallstones No pancreatic mass No adrenal mass Kidneys partially visualized no hydronephrosis Impression: Extensive tumor mediastinal lymphadenopathy Bilateral metastatic pulmonary nodules. Mild heart failure. Negative for pulmonary emboli Dictated By: Rashawn Lara MD Signed By: <Electronically signed by Rashawn Lara MD in OV> 05/25/25 1353 Ordering Physician: Jamie Martinez MD Date of Service: 05/25/25 Procedure(s): CT abdomen pelvis w con Accession Number(s): [id number] cc: Miki Broussard DO; Jamie Martinez MD; Rashawn Lara MD~ Examination: CT abdomen with intravenous contrast CT pelvis with intravenous contrast 2-D coronal reconstructions 2-D sagittal reconstructions Date and time of exam:May 25, 2025, 1207 hrs. Indications:. Difficulty breathing this week with abdominal pain. CTDI: vol (mGy) 11.5 DLP: (mGycm) 726 Technique: Multiple axial sections of the abdomen and pelvis have been obtained. 64 slice high-resolution scanner used. 3 mm axial sections have been obtained, post intravenous injection 100 cc Isovue-370 2-D sagittal, coronal reconstructions obtained. Low dose protocols were performed. One or more of the following dose reduction techniques were used; automated exposure control, adjustment of the mA and/or KV according to patient size, use of iterative reconstruction technique. Findings: Please see the CT chest report liver is irregular in contour, no focal liver or splenic lesions. No gallstones. No adrenal masses. Moderate renal scar formation, no hydronephrosis renal or ureteral calculi Numerous para-aortic pericaval lymph nodes, the largest 12 mm Pelvic lymphadenopathy including bilateral common iliac nodes, the largest on the right side 12 mm No bowel obstruction Normal appendix Colonic diverticulosis Mild prostatomegaly Transpedicular lumbar fusion L5 L4 with satisfactory alignment Impression: Abdominal pelvic lymphadenopathy, likely metastatic lymphadenopathy, please see the CT chest report Normal appendix Dictated By: Rashawn Lara MD Signed By: <Electronically signed by Rashawn Lara MD in OV> 05/25/25 1359 Medications / Prescriptions Medications or Prescriptions considered but not ordered:: None Medication administrations:: Medication Administration History Sodium Chloride (Ns) 1,000 mls @ 100 mls/hr IV .Q10H DARLENE Stop: 06/24/25 10:29 Last Admin: 05/25/25 10:26 Dose: 100 mls/hr Documented By: ED Discontinued Medications Acetaminophen (Acetaminophen 500 Mg Tablet) 1,000 mg PO X1 ONE Stop: 05/25/25 13:52 Last Admin: 05/25/25 13:57 Dose: 1,000 mg Documented By: ED Furosemide (Furosemide Inj 10 Mg/Ml 4ml Vial) 40 mg IVP X1 ONE Stop: 05/25/25 13:21 Last Admin: 05/25/25 13:57 Dose: 40 mg Documented By: ED Levofloxacin (Levofloxacin 250 Mg Tablet) 500 mg PO X1 ONE Stop: 05/25/25 12:19 Last Admin: 05/25/25 12:45 Dose: 500 mg Documented By: ED Metoclopramide HCl (Metoclopramide Inj 5 Mg/Ml Vial 2 Ml) 10 mg IVP X1 ONE; Protocol Stop: 05/25/25 10:16 Last Admin: 05/25/25 10:20 Dose: 10 mg Documented By: ED Metoprolol Tartrate (Metoprolol Tartrate Inj 1 Mg/Ml Amp 5 Ml) 5 mg IVP X1 ONE Stop: 05/25/25 13:21 Last Admin: 05/25/25 14:02 Dose: 5 mg Documented By: ED Metoprolol Tartrate (Metoprolol Tartrate Inj 1 Mg/Ml Amp 5 Ml) 5 mg IVP X1 ONE Stop: 05/25/25 15:00 Last Admin: 05/25/25 15:36 Dose: 5 mg Documented By: DB Pantoprazole Sodium (Pantoprazole Inj 40 Mg Vial) 40 mg IVP X1 ONE Stop: 05/25/25 10:11 Last Admin: 05/25/25 10:25 Dose: 40 mg Documented By: ED See above Consultations Consultation(s) initiated? (list below): No Diagnosis Shortness of Breath Differential Diagnosis: acute exacerbation of chronic obstructive airways disease, congestive heart failure and community acquired pneumonia Most likely diagnosis given after review of the tests above:: Pulmonary edema Admission Indicated Admission indicated?: not indicated Admission Request Was there a request for admission?: No Disposition Plan Disposition Plan: Discharge Discharge Attestation Discharge Attestation: The patient and all family members were given an opportunity to ask questions and understood the discharge instructions. Discharge instructions specifically effects, indications for sooner follow up or return to the emergency department, and the expected course of current diagnosis. Patient condition: Stable Discharge Plan Plan Patient Disposition: HOME (Self Care) Prescriptions/Referrals Prescriptions/Med Rec: No Action Eliquis 5 mg Tablet 5 mg PO BID bumetanide 2 mg tablet 2 mg PO QDAY Qty: 30 0RF lisinopril 20 mg tablet 20 mg PO DAILY Patient Comments: TAKE 1 TABLET BY MOUTH ONCE DAILY allopurinol 300 mg tablet 300 mg PO DAILY Patient Comments: TAKE 1 TABLET BY MOUTH ONCE DAILY pantoprazole 40 mg tablet,delayed release (DR/EC) 40 mg PO DAILY Patient Comments: TAKE 1 TABLET BY MOUTH ONCE DAILY digoxin 250 mcg (0.25 mg) tablet 250 mcg PO QDAY Qty: 30 0RF Referrals: Miki Broussard DO [Primary Care Provider] - In 1 week Problem List Clinical Impression: Pulmonary edema Patient/Caregiver Discharge Instructions Education Materials: Pulmonary Edema Additional Instructions: Follow up with your oncologist that follows you for the Castleman's disease. Also follow up with your PCP for referral to GI for further evaluation. For the following 7 days, take Bumetanide once every morning and discuss with your PCP to determine whether you need to continue the medications. Print Language: Angolan Stand Alone Forms: [employer] Award Info., Patient Portal Info Letter
--- NOTE | 2025-05-25 10:02 | PC.NURSE ---
Pt. states he has had Afib since 2006.
--- NOTE | 2025-05-25 10:15 | XR_ITS ---
Examination: CTA chest with intravenous contrast 2-D reconstructions 3-D reconstructions, vascular Date and time of exam: May 25, 2025, 1207 hrs. Indications: Coughing shortness of breath beginning 2 weeks ago. CTDI: vol (mGy) 15.8. DLP: (mGycm) 648. Technique: Multiple axial sections of the thorax have been obtained. 3 mm slice thickness, from below the hemidiaphragms to above the apices of the lungs. Mediastinal and lung density settings have been obtained. 2-D sagittal and coronal reconstructions. 3-D angiographic renderings, 3-D volume renderings, 3D post processing, vascular maximum intensity projections obtained. Contrast administered is 100 cc Isovue-370.. Low dose protocols were performed. One or more of the following dose reduction techniques were used; automated exposure control, adjustment of the mA and/or KV according to patient size, use of iterative reconstruction technique. Findings: Extensive bulky mediastinal lymphadenopathy including high periaortic, tracheobronchial, paratracheal, bilateral hilar and subcarinal No thoracic aortic aneurysmal dilatation. At least 10 subcentimeter metastatic pulmonary nodules No pulmonary artery filling defects. Heart failure, moderate enlargement cardiac contour with vascular congestion and perihilar edema, moderate right mild left pleural fluid Liver is irregular in contour No gallstones No pancreatic mass No adrenal mass Kidneys partially visualized no hydronephrosis Impression: Extensive tumor mediastinal lymphadenopathy Bilateral metastatic pulmonary nodules. Mild heart failure. Negative for pulmonary emboli
[2025-05-25 10:16] LABS: Basophils # (Auto) 0.1 Thou/mm3 (0.0-0.2); Basophils % (Auto) 0 % (0-2.5); Eosinophils # (Auto) 0.2 Thou/mm3 (0.0-0.5); Eosinophils % (Auto) 2 % (0-10); Hematocrit 49.8 % (41.0-53.0); Hemoglobin 16.9 g/dL (13.5-16.0); Immature Granulocytes Auto 0.14 Thou/mm3 (0.00-0.00); Lymphocytes # (Auto) 1.1 Thou/mm3 (1.0-4.8); Lymphocytes % (Auto) 8 % (10-50); Mean Corpuscular HGB Conc 33.9 g/dl (31.0-37.0); Mean Corpuscular Hemoglobin 33.3 pg (25.0-35.0); Mean Corpuscular Volume 98 fL (80-100); Monocytes # (Auto) 0.9 Thou/mm3 (0.0-0.8); Monocytes % (Auto) 7 % (0-12); Neutrophils # (Auto) 10.9 Thou/mm3 (1.8-7.7); Neutrophils % (Auto) 82 % (37-80); Nucleated Red Blood Cell # 0.00 Thou/mm3 (0.00-0.00); Nucleated Red Blood Cell % 0 /100 WBC (0); Platelet Count 270 Thou/mm3 (140-440); RDW Standard Deviation 53.1 fL (35.1-43.9); Red Blood Count 5.08 Miln/mm3 (4.50-5.90); White Blood Count 13.3 Thou/mm3 (3.8-10.6)
[2025-05-25] MEDS: METOCLOPRAMIDE INJ 5 MG/ML VIAL 2 ML 10 MG IVP (10:20)
[2025-05-25] MEDS: SODIUM CHLORIDE 0.9% 1000 ML 1,000 ML 100 ML IV (10:26)
[2025-05-25 10:35] LABS: Alanine Aminotransferase 9 U/L (10-49); Albumin, Serum 4.4 gm/dL (3.4-4.8); Albumin/Globulin Ratio 1.6 (1.2-2.2); Alkaline Phosphatase 311 U/L (46-116); Anion Gap 12 (7-16); Aspartate Amino Transferase 10 U/L (0-34); BUN/Creatinine Ratio 17 Ratio (12-20); Bilirubin,Total 1.4 mg/dL (0.3-1.2); Blood Urea Nitrogen 17 mg/dL (9-23); Calcium 10.1 mg/dL (8.3-10.6); Calcium (Corrected) 10.1 mg/dL (8.5-10.1); Carbon Dioxide 20.1 mMol/L (20.0-31.0); Chloride 106 mMol/L (98-107); Creatinine (Component) 1.0 mg/dL (0.6-1.3); Estimated Creatinine Clearance 95.5 mL/min (>60); Globulin 2.8 gm/dL (2.3-3.5); Glucose 200 mg/dL (74-106); Lipase 23 U/L (12-53); Osmolality,Calculated 283 (275-295); Potassium 3.8 mMol/L (3.4-5.1); Sodium 138 mMol/L (136-145); Total Protein 7.2 gm/dL (5.7-8.2); Troponin I < 0.020 ng/mL (0.0-0.045); eGFR > 60 See Note
[2025-05-25 10:37] LABS: Base Excess -2 (-3-3); HCO3 22 mEq/L (20-26); Inspired O2, VO2 Liters 2 L/min; Inspired Oxygen, FIO2 21 %; O2 Saturation 96 % (91-98); PCO2 33 mmHg (32.0-48.0); PO2 76 mmHg (83-108); pH, Arterial 7.43 (7.35-7.45)
[2025-05-25 10:39] LABS: Allen Test Performed/OK; Puncture Site Right Radial
[2025-05-25 10:49] LABS: B-Type Natriuretic Peptide 66 pg/mL (0-100)
--- NOTE | 2025-05-25 11:36 | PC.NURSE ---
called CT and informed Alexandru slaughter. is ready for CT.
--- NOTE | 2025-05-25 11:42 | XR_ITS ---
Examination: CT abdomen with intravenous contrast CT pelvis with intravenous contrast 2-D coronal reconstructions 2-D sagittal reconstructions Date and time of exam:May 25, 2025, 1207 hrs. Indications:. Difficulty breathing this week with abdominal pain. CTDI: vol (mGy) 11.5 DLP: (mGycm) 726 Technique: Multiple axial sections of the abdomen and pelvis have been obtained. 64 slice high-resolution scanner used. 3 mm axial sections have been obtained, post intravenous injection 100 cc Isovue-370 2-D sagittal, coronal reconstructions obtained. Low dose protocols were performed. One or more of the following dose reduction techniques were used; automated exposure control, adjustment of the mA and/or KV according to patient size, use of iterative reconstruction technique. Findings: Please see the CT chest report liver is irregular in contour, no focal liver or splenic lesions. No gallstones. No adrenal masses. Moderate renal scar formation, no hydronephrosis renal or ureteral calculi Numerous para-aortic pericaval lymph nodes, the largest 12 mm Pelvic lymphadenopathy including bilateral common iliac nodes, the largest on the right side 12 mm No bowel obstruction Normal appendix Colonic diverticulosis Mild prostatomegaly Transpedicular lumbar fusion L5 L4 with satisfactory alignment Impression: Abdominal pelvic lymphadenopathy, likely metastatic lymphadenopathy, please see the CT chest report Normal appendix
[2025-05-25] MEDS: LEVOFLOXACIN 250 MG TABLET 500 MG PO (12:45)
[2025-05-25 13:07] LABS: Collection Type, Urine Clean Catch
[2025-05-25 13:46] LABS: Bilirubin,Urine Negative (Negative); Blood,Urine Trace (Negative); Clarity,Urine Clear (Clear/Hazy); Color,Urine Yellow (Lt Yel-Yel); Glucose, Urine Negative (Negative); Ketones,Urine Negative (Negative); Leukocyte Esterase,Urine Negative (Negative); Nitrite,Urine Negative (Negative); PH,Urine 6.0 (5.0-7.0); Protein,Urine Trace (Neg - Trace); RBC,Urine 4 /hpf (0-3); Squamous Epithelial Cell,Urine 1 /hpf (0-5); Urobilinogen,Urine Negative mg/dL (0.0-1.0); WBC,Urine 2 /hpf (0-5)
[2025-05-25 13:49] LABS: Amphetamine/Methamp Scrn,U Negative (Negative); Barbiturate Screen,Urine Negative (Negative); Benzodiazepines Screen,Urine Negative (Negative); Benzoylecgonine Screen, Ur Negative (Negative); Fentanyl Screen,Urine Negative (Negative); Opiate Screen,Urine Negative (Negative); THC Screen,Urine Positive (Negative)
[2025-05-25] MEDS: ACETAMINOPHEN 500 MG TABLET 1000 MG PO (13:57)
[2025-05-25] MEDS: FUROSEMIDE INJ 10 MG/ML 4ML VIAL 40 MG IVP (13:57)
[2025-05-25 13:58] LABS: Specific Gravity,Urine 1.020 (1.001-1.035)
[2025-05-25] MEDS: METOPROLOL TARTRATE INJ 1 MG/ML AMP 5 ML 5 MG IVP ×2 (14:02→15:36)
[2025-05-25 16:16] LABS: Digoxin 0.9 ng/mL (0.8-2.0)
[2025-05-25] MEDS: DIGOXIN INJ 0.25 MG/ML AMP 2 ML 0.125 MG IVP (17:32)
== END 2025-05-25 17:40 | disposition home or self-care (01) ==
PROVIDERS: Physician Assistant; Emergency Provider Family Medicine; PCP Internal Medicine
DX: I11.0 Hypertensive heart disease with heart failure (principal); I50.30 Unspecified diastolic (congestive) heart failure; J18.9 Pneumonia, unspecified organism; I48.91 Unspecified atrial fibrillation; R59.0 Localized enlarged lymph nodes; C78.02 Secondary malignant neoplasm of left lung; C78.01 Secondary malignant neoplasm of right lung; Z95.0 Presence of cardiac pacemaker
CPT/HCPCS: 36415; 36430; 36600; 71045; 71275; 74177; 80053; 80162; 80307; 81001; 82803; 83690; 83880; 84484; 85025; 93005; 96374; 96375; 96376; 99284; A4649; J1160; J1938; J2470; J2765; J3490; J7030; Q9967; A9270

== ENCOUNTER 2025-05-26 08:23 | Inpatient (IN) | payer MEDICARE, SELFPAY ==
[2025-05-26] VITALS (13 sets, daily range): BP systolic 123–152; BP diastolic 63–96; PULSE 88–131; RESP 15–26; TEMP 36.3–38; O2SAT 88–96; BMI 33.6
--- NOTE | 2025-05-26 08:27 | PC.NURSE ---
PT C/O COUGH FOR 1 WEEK AND REFUSING TO WEAR FACE MASK. WAS ASKED TO WAIT OUTSIDE THE E.D.
--- NOTE | 2025-05-26 08:29 | EKG_ITS ---
[facility] Test Date: 2025-05-26 Pat Name: SALVADOR GUTIERREZ Department: Room: - Gender: Male Um Rn: : 1960 Requested By: ED Temporary Provider Order Number: [id number] Reading MD: ED Temporary Provider Measurements Intervals [place] Rate: 130 P: VA: QRS: 32 QRSD: 89 T: -29 QT: 265 QTc: 391 Interpretive Statements ATRIAL FIBRILLATION WITH RAPID VENTRICULAR RESPONSE NONSPECIFIC ST & T-WAVE ABNORMALITY Compared to ECG 05/25/2025 14:51:35 No significant changes /store/S0/[id number]/[id number].pdf
--- NOTE | 2025-05-26 08:55 | XR_ITS ---
Examination: AP chest single view Technique: AP portable sitting chest single view. Date and time: May 26, 2025, 0903 hrs., Comparison May 25, 2025, CT chest May 25, 2025 indications: Chest pain today, extensive mediastinal lymphadenopathy on CT chest May 25, 2025. Findings: Bulky mediastinal lymphadenopathy including right paratracheal right tracheobronchial and bilateral hilar Mild enlargement cardiac contour prominent vascular congestion and interstitial pulmonary edema. Hilar the lung bases Unipolar ventricular cardiac leads stable position Prominent osteopenia Impression: Prominent mediastinal lymphadenopathy Mild CHF
[2025-05-26 09:42] LABS: Lactate (Lactic Acid) 2.9 mMol/L (0.4-2.0)
[2025-05-26 09:50] LABS: Basophils # (Auto) 0.1 Thou/mm3 (0.0-0.2); Basophils % (Auto) 0 % (0-2.5); Eosinophils # (Auto) 0.2 Thou/mm3 (0.0-0.5); Eosinophils % (Auto) 1 % (0-10); Hematocrit 49.4 % (41.0-53.0); Hemoglobin 17.1 g/dL (13.5-16.0); Immature Granulocytes Auto 0.17 Thou/mm3 (0.00-0.00); Lymphocytes # (Auto) 1.3 Thou/mm3 (1.0-4.8); Lymphocytes % (Auto) 8 % (10-50); Mean Corpuscular HGB Conc 34.6 g/dl (31.0-37.0); Mean Corpuscular Hemoglobin 34.0 pg (25.0-35.0); Mean Corpuscular Volume 98 fL (80-100); Monocytes # (Auto) 1.2 Thou/mm3 (0.0-0.8); Monocytes % (Auto) 7 % (0-12); Neutrophils # (Auto) 13.3 Thou/mm3 (1.8-7.7); Neutrophils % (Auto) 82 % (37-80); Nucleated Red Blood Cell # 0.00 Thou/mm3 (0.00-0.00); Nucleated Red Blood Cell % 0 /100 WBC (0); Platelet Count 272 Thou/mm3 (140-440); RDW Standard Deviation 53.7 fL (35.1-43.9); Red Blood Count 5.03 Miln/mm3 (4.50-5.90); White Blood Count 16.3 Thou/mm3 (3.8-10.6)
[2025-05-26 09:58] LABS: INR 1.4 (0.9-1.3); Partial Thromboplastin Time 32.4 Seconds (22.0-36.0); Prothrombin Time 14.6 Seconds (9.0-12.2)
[2025-05-26 10:05] LABS: B-Type Natriuretic Peptide 41 pg/mL (0-100)
[2025-05-26 10:18] LABS: Alanine Aminotransferase 8 U/L (10-49); Albumin, Serum 4.4 gm/dL (3.4-4.8); Albumin/Globulin Ratio 1.5 (1.2-2.2); Alkaline Phosphatase 296 U/L (46-116); Anion Gap 14 (7-16); Aspartate Amino Transferase 12 U/L (0-34); BUN/Creatinine Ratio 20 Ratio (12-20); Bilirubin,Total 1.3 mg/dL (0.3-1.2); Blood Urea Nitrogen 20 mg/dL (9-23); Calcium 10.2 mg/dL (8.3-10.6); Calcium (Corrected) 10.2 mg/dL (8.5-10.1); Carbon Dioxide 20.1 mMol/L (20.0-31.0); Chloride 104 mMol/L (98-107); Creatinine (Component) 1.0 mg/dL (0.6-1.3); Estimated Creatinine Clearance 95.5 mL/min (>60); Globulin 2.9 gm/dL (2.3-3.5); Glucose 157 mg/dL (74-106); Lipase 29 U/L (12-53); Magnesium 1.8 mg/dL (1.6-2.6); Osmolality,Calculated 281 (275-295); Potassium 3.8 mMol/L (3.4-5.1); Procalcitonin 0.09 ng/ml (0.0-0.49); Sodium 138 mMol/L (136-145); Total Protein 7.3 gm/dL (5.7-8.2); Troponin I < 0.020 ng/mL (0.0-0.045); eGFR > 60 See Note
--- NOTE | 2025-05-26 12:35 | EDNOTE_ITS ---
ED SOB =RME/HPI General Chief Complaint: Shortness of Breath/Dyspnea Stated Complaint: DIFF BREATHING x 2 DAYS, SEEN YESTERDAY Time Seen by Provider: 05/26/25 08:50 Arrival date/time: 05/26/25 08:23 RME / HPI RME / HPI Narrative: 65 year old male with history of atrial fibrillation, HFpEF (55-60% 02/2025), sick sinus syndrome s/p pacemaker placement, hypertension, Castleman's disease presents to the ED for evaluation of shortness of breath today. Describes there to be a fullness sensation from the epigastric region that moves up his chest that is causing him to feel short of breath. Evidently was evaluated here yesterday and diagnosed with pulmonary edema and discharged home. States last night he had difficulty sleeping due to the shortness of breath and noted symptoms were not improved this morning, prompting ED visit. Shortness of breath is accompanied by the sensation to belch, productive cough (clear phlegm), and hot sweats . Denies abdominal pain, n/v/d, or urinary symptoms. Related Data Home Medications ?Medication ?Instructions ?Recorded ?Confirmed apixaban 5 mg tablet (Eliquis) 5 mg PO BID 12/12/23 allopurinol 300 mg tablet 300 mg PO DAILY 03/16/2510/19 lisinopril 20 mg tablet 20 mg PO DAILY 03/16/2510/19 albuterol sulfate 90 mcg/actuation 2 puff inhalation Q 4H PRN 05/26/25 05/26/25 aerosol inhaler shortness of breath or wheez ing benzonatate 100 mg capsule 100 mg PO TID PRN cough 10/1905/26/25 digoxin 125 mcg (0.125 mg) tablet 0.125 mg PO DAILY 05/26/25 diltiazem HCl 240 mg capsule,24 240 mg PO Q24H 5 05/26/25 hr,extended release methotrexate sodium 2.5 mg tablet 15 mg PO .Q WEEKLY 0 05/26/25 05/26/25 methylprednisolone 4 mg tablet 4 mg PO QDAY 05/26/25 0 05/26/25 metoprolol tartrate 100 mg tablet 100 mg PO Q12H 05/2605/26/25 Previous Rx's ?Medication ?Instructions ?Recorded bumetanide 1 mg tablet 1 mg PO QDAY 1 month #30 tab s 05/30/25 Allergies Allergy/AdvReac Type Severity Reaction Status Date / Time No Known Allergies Allergy Verified 05/25/25 08:56 Review of Systems Review of Systems Systems Reviewed: All systems reviewed, normal except as documented Past Medical History Past Medical History CARDIAC: Positive Cardiac Disorders, Cardiac Arrhythmia, Atrial Fibrillation, Congestive Heart Failure, Congenital Heart Disease, Edema and Hypertension RESPIRATORY: Positive Bronchitis and Pneumonia MUSCULOSKELETAL: Positive Musculoskeletal Disorders, Arthritis and Osteoporosis OTHER HISTORY: Positive Chicken Pox, Measles and Mumps Family History FAMILY HISTORY: Positive Family Cardiac Disorders Surgical History SURGICAL: Positive Pacemaker and Joint Replacement Social History SMOKING STATUS: Never smoker SUBSTANCE USE: does not use ED Exam Narrative Physical exam: GENERAL APPEARANCE: alert and oriented x 4, well-developed, well-nourished, tachypneic HEENT: Normocephalic, atraumatic; pupils equal, round, reactive to light; EOMI; mucous membranes pink, moist; oropharynx clear NECK: Supple LUNGS: Decreased breath sounds left base, tachypneic, no wheezes, no rales, no rhonchi HEART: Regular rate, regular rhythm; normal S1, S2; no murmurs ABDOMEN: non distended; normal BS; soft, no tenderness, no guarding, no rebound; no masses, no organomegaly, no hernia BACK: no CVA tenderness EXTREMITIES: atraumatic; no edema NEUROLOGIC: awake; alert and oriented x4; cranial nerves II-XII grossly intact; no focal sensory or motor deficits PSYCHIATRIC: appropriate mood and affect SKIN: warm, diaphoretic, normal color; no rashes Course Quality Measures none Orders Category Date Time Status Bedside COVID-19 Antigen Test NOW Care 05/26/25 09:04 Completed Bedside Influenza A&B Antigen Test NOW Care 05/26/25 09:04 Completed Pad Machine Operator NOW Care 05/26/25 08:55 Completed EKG (ED ONLY) *Do not use* NOW Care 05/26/25 08:29 Completed EKG (ED Only) Stat Exams 05/26/25 08:29 Draft XR chest 1V portable Stat Exams 05/26/25 08:55 Completed ABG [Arterial Blood Gas] Stat Lab 05/26/25 17:00 Completed B-Type Natriuretic Peptide Stat Lab 05/26/25 09:25 Completed Blood Culture (Lab) Stat Lab 05/26/25 09:27 Completed CBC Stat Lab 05/26/25 09:25 Completed Comprehensive Metabolic Panel Stat Lab 05/26/25 09:25 Completed Lactate (Lactic Acid) Stat Lab 05/26/25 09:25 Completed Lactic Acid, 3 HR Stat Lab 05/26/25 13:53 Completed Lipase Stat Lab 05/26/25 09:25 Completed Magnesium Stat Lab 05/26/25 09:25 Completed Partial Thromboplastin Time Stat Lab 05/26/25 09:25 Completed Procalcitonin Stat Lab 05/26/25 09:25 Completed Prothrombin Time with INR Stat Lab 05/26/25 09:25 Completed Troponin I Stat Lab 05/26/25 09:25 Completed Urinalysis Stat Lab 05/26/25 14:33 Completed Urine Culture Stat Lab 05/26/25 14:33 Completed Dexamethasone Inj [Decadron Inj] Med 05/26/25 14:42 Discontinued 6 mg IVP X1 ONE HYDROcodone*/APAP 5/325 [[place] 5/325] Med 05/26/25 13:43 Discontinued 1 tab PO X1 ONE Sodium Chloride 0.9% 1000 ml [Ns] 1,000 ml Med 05/26/25 14:40 Discontinued IV 999 mls/hr Vital Signs Vital signs: Vital Signs Temperature 100.4 F 05/26/25 08:58 Pulse Rate 129 H 05/26/25 08:58 Respiratory Rate 22 H 05/26/25 08:58 Blood Pressure 152/82 H 05/26/25 08:58 Pulse Oximetry (%) 94 L 05/26/25 08:58 Oxygen Delivery Method Room Air 05/26/25 08:58 Pulse ox is 94% on room air which is adequate. Shortness of Breath / Dyspnea MDM Narrative MDM Narrative:: Carla Garcia am scribing for and in the presence of Dr. Camarena. Patient data External records reviewed:: [facility] previous records (I reviewed ED visit on 05/25/2025 ) Clinical information provided by:: patient Social determinants that could affect healthcare access:: none Patient has the following chronic illnesses:: atrial fibrillation, HFpEF (55-60% 02/2025), sick sinus syndrome s/p pacemaker placement, hypertension, Castleman's disease How is presenting disease/condition affected by chronic disease/condition?: exacerbated by Evaluation data The following diagnostics were reviewed and interpreted by me:: lab results, radiology exam(s) and EKG tracing(s) (05/26/2025 @ 08:58 AM. Atrial fibrillation with RVR, rate 130, no acute ischemic changes. ) Lab and/or radiology exams considered but not ordered:: None Interpretation Summary: Ordering Physician: Laura Camarena MD Date of Service: 05/26/25 Procedure(s): XR chest 1V portable Accession Number(s): [id number] cc: Miki Broussard; Rashawn Lara MD; Laura Camarena MD~ Examination: AP chest single view Technique: AP portable sitting chest single view. Date and time: May 26, 2025, 0903 hrs., Comparison May 25, 2025, CT chest May 25, 2025 indications: Chest pain today, extensive mediastinal lymphadenopathy on CT chest May 25, 2025. Findings: Bulky mediastinal lymphadenopathy including right paratracheal right tracheobronchial and bilateral hilar Mild enlargement cardiac contour prominent vascular congestion and interstitial pulmonary edema. Hilar the lung bases Unipolar ventricular cardiac leads stable position Prominent osteopenia Impression: Prominent mediastinal lymphadenopathy Mild CHF Dictated By: Rashawn Lara MD Signed By: <Electronically signed by Rashawn Lara MD in OV> 05/26/25 0956 Medications / Prescriptions Medications or Prescriptions considered but not ordered:: None Medication administrations:: Medication Administration History Discontinued Medications Acetaminophen (Acetaminophen 325 Mg Tablet) 650 mg PO Q6H PRN PRN Reason: PAIN 1-3 OR FEVER > 100.4 Stop: 06/25/25 18:14 Hydrocodone Bitart/Acetaminophen (Hydrocodone/Apap 5/325 Tablet) 1 tab PO X1 ONE Stop: 05/26/25 13:44 Last Admin: 05/26/25 13:50 Dose: 1 tab Documented By: DB Hydrocodone Bitart/Acetaminophen (Hydrocodone/Apap 5/325 Tablet) 1 tab PO Q6HR PRN PRN Reason: PAIN SCALE 4-6 (Moderate Stop: 05/31/25 18:19 Last Admin: 05/30/25 03:00 Dose: 1 tab Documented By: [email or web address] Admin: 05/27/25 20:30 Dose: 1 tab Documented By: Admin: 05/27/25 14:27 Dose: 1 tab Documented By: SC Admin: 05/27/25 04:35 Dose: 1 tab Documented By: Admin: 05/26/25 21:46 Dose: 1 tab Documented By: BROOKLYN Albuterol/Ipratropium (Albuterol/Ipratropium (Duoneb) Rt Dominique 3 Ml Nebu) 3 ml INH Q6HRRT DARLENE Stop: 06/27/25 12:59 Last Admin: 05/28/25 12:35 Dose: Not Given Documented By: NUBIA Non-Admin Reason: Patient Refused Comments: pt concerned about albuterol increasing hr, dr contacted. Apixaban (Apixaban 2.5 Mg Tablet) 5 mg PO BID ON LICENSE OF [facility] Stop: 06/25/25 20:59 Last Admin: 05/30/25 09:23 Dose: 5 mg Documented By: Admin: 05/29/25 20:46 Dose: 5 mg Documented By: Admin: 05/29/25 08:48 Dose: 5 mg Documented By: Admin: 05/28/25 20:56 Dose: 5 mg Documented By: Admin: 05/28/25 08:12 Dose: 5 mg Documented By: Admin: 05/27/25 20:30 Dose: 5 mg Documented By: Admin: 05/27/25 08:30 Dose: 5 mg Documented By: Admin: 05/26/25 21:07 Dose: 5 mg Documented By: NAHUM Budesonide (Budesonide Rt 0.5 Mg/2 Ml Nebu) 1 mg INH BIDRT ON LICENSE OF [facility] Stop: 06/27/25 10:59 Last Admin: 05/30/25 06:54 Dose: 1 mg Documented By: Admin: 05/29/25 19:17 Dose: 1 mg Documented By: Admin: 05/29/25 07:01 Dose: 1 mg Documented By: Admin: 05/28/25 18:59 Dose: 1 mg Documented By: Admin: 05/28/25 11:25 Dose: Not Given Documented By: RAFAEL Non-Admin Reason: Wrong Time Bumetanide (Bumetanide Inj 0.25 Mg/Ml Vial 4 Ml) 1 mg IVP BID ON LICENSE OF [facility] Stop: 06/27/25 11:44 Last Admin: 05/28/25 22:07 Dose: Not Given Documented By: PATY Non-Admin Reason: pt refused MD made aware Admin: 05/28/25 13:24 Dose: 1 mg Documented By: SC Bumetanide (Bumetanide Inj 0.25 Mg/Ml Vial 4 Ml) 2 mg IVP DAILY DARLENE Stop: 06/28/25 08:59 Last Admin: 05/30/25 09:25 Dose: 2 mg Documented By: Admin: 05/29/25 08:46 Dose: 2 mg Documented By: SC Dexamethasone (Dexamethasone 4 Mg Tablet) 6 mg PO QDAY DARLENE Stop: 06/04/25 09:01 Last Admin: 05/30/25 09:23 Dose: 6 mg Documented By: Admin: 05/29/25 08:47 Dose: 6 mg Documented By: SC Admin: 05/28/25 08:14 Dose: 6 mg Documented By: SC Admin: 05/27/25 13:35 Dose: Not Given Documented By: SC Non-Admin Reason: hold order per Dr. Javon Torrez Dexamethasone Sodium Phosphate (Dexamethasone Sod Phos Inj 10 Mg/Ml Vial) 6 mg IVP X1 ONE Stop: 05/26/25 14:43 Last Admin: 05/26/25 15:03 Dose: 6 mg Documented By: WALTER Digoxin (Digoxin 0.125 Mg Tablet) 0.125 mg PO DAILY DARLENE Stop: 06/26/25 08:59 Digoxin (Digoxin 0.125 Mg Tablet) 0.125 mg PO DAILY ON LICENSE OF [facility] Stop: 06/26/25 05:44 Last Admin: 05/30/25 09:24 Dose: 0.125 mg Documented By: Admin: 05/29/25 08:48 Dose: 0.125 mg Documented By: SC Admin: 05/28/25 08:12 Dose: 0.125 mg Documented By: SC Admin: 05/27/25 09:26 Dose: Not Given Documented By: SC Non-Admin Reason: hold per Dr. Javon Torrez verbal order at bedside Admin: 05/27/25 05:52 Dose: 0.125 mg Documented By: MLBrandi Diltiazem HCl (Diltiazem Inj 5 Mg/Ml Vial 5 Ml) 15 mg IV X1 ONE Stop: 05/26/25 19:34 Last Admin: 05/26/25 19:41 Dose: 15 mg Documented By: TENA Diltiazem HCl (Diltiazem Cd 120 Mg Capcr) 240 mg PO Q24H ON LICENSE OF [facility] Stop: 06/26/25 11:19 Last Admin: 05/30/25 12:46 Dose: 240 mg Documented By: Admin: 05/29/25 11:47 Dose: 240 mg Documented By: SC Admin: 05/28/25 11:41 Dose: 240 mg Documented By: SC Admin: 05/27/25 13:05 Dose: 240 mg Documented By: SC Guaifenesin/Dextromethorphan (Guaifenesin/Dm Tablet) 1 each PO QDAY DARLENE Stop: 06/27/25 11:59 Last Admin: 05/28/25 18:32 Dose: Not Given Documented By: SC Non-Admin Reason: med dc Guaifenesin/Dextromethorphan (Guaifenesin/Dm Tablet) 1 each PO BID DARLENE Stop: 06/27/25 20:59 Last Admin: 05/30/25 10:16 Dose: 1 each Documented By: Admin: 05/29/25 20:46 Dose: 1 each Documented By: Admin: 05/29/25 11:47 Dose: 1 each Documented By: SC Admin: 05/28/25 20:56 Dose: 1 each Documented By: PATY Sodium Chloride (Ns) 1,000 mls @ 999 mls/hr IV .Q1H1M ONE Stop: 05/26/25 15:40 Last Infusion: 05/26/25 16:20 Dose: Infused Documented By: Admin: 05/26/25 15:02 Dose: 999 mls/hr Documented By: DB Remdesivir 200 mg/ Sodium (Chloride) 250 mls @ 250 mls/hr IV X1 ONE; Protocol Stop: 05/26/25 19:44 Last Infusion: 05/26/25 20:33 Dose: Infused Documented By: Admin: 05/26/25 19:20 Dose: 250 mls/hr Documented By: DT Remdesivir 100 mg/ Sodium (Chloride) 100 mls @ 100 mls/hr IV QDAY@1400 DARLENE; Protocol Stop: 05/30/25 14:59 Last Admin: 05/27/25 14:58 Dose: 100 mls/hr Documented By: SC Magnesium Sulfate (Magnesium Sulfate Ivpb) 4 gm in 50 mls @ 12.5 mls/hr IV X1 ONE Stop: 05/27/25 13:17 Last Admin: 05/27/25 10:33 Dose: 12.5 mls/hr Documented By: SC Ceftriaxone Sodium/Dextrose (Rocephin/D5w 1gm Iv Premix) 1 gm in 50 mls @ 100 mls/hr IV QDAY DARLENE Stop: 06/03/25 11:17 Last Admin: 05/30/25 09:25 Dose: 100 mls/hr Documented By: Infusion: 05/29/25 09:19 Dose: Infused Documented By: Admin: 05/29/25 08:49 Dose: 100 mls/hr Documented By: SC Infusion: 05/28/25 08:42 Dose: Infused Documented By: SC Admin: 05/28/25 08:12 Dose: 100 mls/hr Documented By: SC Infusion: 05/27/25 14:51 Dose: Infused Documented By: SC Admin: 05/27/25 14:21 Dose: 100 mls/hr Documented By: SC Azithromycin 500 mg/ Sodium (Chloride) 250 mls @ 250 mls/hr IV QDAY DARLENE Stop: 06/03/25 11:17 Last Admin: 05/30/25 10:13 Dose: 250 mls/hr Documented By: Infusion: 05/29/25 09:49 Dose: Infused Documented By: Admin: 05/29/25 08:49 Dose: 250 mls/hr Documented By: SC Infusion: 05/28/25 10:15 Dose: Infused Documented By: SC Admin: 05/28/25 09:15 Dose: 250 mls/hr Documented By: SC Infusion: 05/27/25 14:05 Dose: Infused Documented By: SC Admin: 05/27/25 13:05 Dose: 250 mls/hr Documented By: SC Magnesium Sulfate (Magnesium Sulfate Ivpb) 4 gm in 50 mls @ 12.5 mls/hr IV X1 ONE Stop: 05/28/25 16:56 Last Admin: 05/28/25 13:24 Dose: 12.5 mls/hr Documented By: SC Methylprednisolone (Methylprednisolone 4 Mg Tablet) 6 mg PO DAILY DARLENE Stop: 06/26/25 08:59 Last Admin: 05/27/25 10:33 Dose: 6 mg Documented By: SC Metoprolol Tartrate (Metoprolol Tartrate 25 Mg Tablet) 100 mg PO Q12H DARLENE Stop: 06/25/25 20:59 Last Admin: 05/30/25 09:22 Dose: 100 mg Documented By: DIANNA Comments: Admin: 05/29/25 20:46 Dose: 100 mg Documented By: [email or web address] Admin: 05/29/25 08:48 Dose: 100 mg Documented By: SC Admin: 05/28/25 20:55 Dose: 100 mg Documented By: [email or web address] Admin: 05/28/25 08:12 Dose: 100 mg Documented By: SC Admin: 05/27/25 20:30 Dose: 100 mg Documented By: [facility] [place] [place] Admin: 05/27/25 08:28 Dose: 100 mg Documented By: SC Admin: 05/26/25 21:07 Dose: 100 mg Documented By: NAHUM Ondansetron HCl (Ondansetron Inj 2 Mg/Ml Inj 2 Ml) 4 mg IVP Q6H PRN; Protocol PRN Reason: NAUSEA OR VOMITING Stop: 06/25/25 18:19 Pantoprazole Sodium (Pantoprazole 40 Mg Tablet) 40 mg PO QDAY DARLENE Stop: 06/26/25 08:59 Last Admin: 05/30/25 09:23 Dose: 40 mg Documented By: Admin: 05/29/25 08:48 Dose: 40 mg Documented By: SC Admin: 05/28/25 08:12 Dose: 40 mg Documented By: SC Admin: 05/27/25 08:30 Dose: 40 mg Documented By: SC Sodium Chloride (Sodium Chloride Rt 10% 15 Ml Nebu) 5 ml INH X1 ONE Stop: 05/26/25 18:26 Last Admin: 05/26/25 21:50 Dose: Not Given Documented By: EMR Non-Admin Reason: Other, see note See above Consultations Consultation(s) initiated? (list below): Yes Consultation #1 (Physician, Specialty, Details): I spoke with residents regarding admission. Discussed patients PMHx, HPI, ED course, exam findings, labs, and radiology results. The hospitalist agree to accept the patient for admission. Diagnosis Shortness of Breath Differential Diagnosis: acute exacerbation of chronic obstructive airways disease, congestive heart failure, community acquired pneumonia, asthma with exacerbation and other (covid, flu) Most likely diagnosis given after review of the tests above:: COVID acute hypoxic respiratory failure Admission Indicated Admission indicated?: indicated Admission Request Was there a request for admission?: Yes Admission Attestation Admission request attestation: Discussed case with [] from Hospitalist service regarding admission. Discussed patients ED course, exam findings, labs, and radiology results. The Hospitalist [agrees,declines] to accept the patient for admission. Disposition Plan Disposition Plan: Admit Critical Care Time Critical Care Time Critical Care Time: Yes Total Critical Care Time (min.): 35 Attestation: The high probability of sudden, clinically significant deterioration in the patient's condition required the highest level of my preparedness to intervene urgently. The services I provided to this patient were to treat and/or prevent clinically significant deterioration. Services included the following: chart data review, reviewing nursing notes and/or old charts, documentation time, financial services education consultant collaboration regarding findings and treatment options, medication orders and management, direct patient care, vital sign assessments and ordering, interpreting and reviewing diagnostic studies and lab tests. Aggregate critical care time includes only time during which I was engaged in work directly related to the patient's care, as described above, whether at bedside or elsewhere in the Emergency Department. It did not include time spent performing other reported procedures or the services of residents, students, nurses or physician assistants. Discharge Plan Plan Patient Disposition: Admit Acute Care w/in Hospital Patient condition on transfer: Stable Problem List Clinical Impression: Acute hypoxic respiratory failure
[2025-05-26 12:40] LABS: Reflex Lactate? Y
[2025-05-26] MEDS: HYDROcodone/APAP 5/325 TABLET 1 TAB PO ×2 (13:50→21:46)
[2025-05-26 13:58] LABS: Lactic Acid, 3 HR 1.8 mMol/L (0.4-2.0)
[2025-05-26 14:47] LABS: Collection Type, Urine Clean Catch
[2025-05-26 14:54] LABS: Bilirubin,Urine Negative (Negative); Blood,Urine Trace (Negative); Clarity,Urine Clear (Clear/Hazy); Color,Urine Yellow (Lt Yel-Yel); Glucose, Urine Negative (Negative); Ketones,Urine Trace (Negative); Leukocyte Esterase,Urine Negative (Negative); Nitrite,Urine Negative (Negative); PH,Urine 5.5 (5.0-7.0); Protein,Urine 1+ (Neg - Trace); RBC,Urine 2 /hpf (0-3); Specific Gravity,Urine 1.035 (1.001-1.035); Squamous Epithelial Cell,Urine 1 /hpf (0-5); Urobilinogen,Urine 2.0 mg/dL (0.0-1.0); WBC,Urine 4 /hpf (0-5)
[2025-05-26] MEDS: SODIUM CHLORIDE 0.9% 1000 ML 1,000 ML 999 ML IV (15:02)
[2025-05-26] MEDS: DEXAMETHASONE SOD PHOS INJ 10 MG/ML VIAL 6 MG IVP (15:03)
[2025-05-26 17:10] LABS: Base Excess -1 (-3-3); HCO3 22 mEq/L (20-26); Inspired O2, VO2 Liters 3 L/min; O2 Saturation 94 % (91-98); PCO2 33 mmHg (32.0-48.0); PO2 66 mmHg (83-108); Puncture Site Left Radial; pH, Arterial 7.43 (7.35-7.45)
[2025-05-26 17:11] LABS: Allen Test Performed/OK
--- NOTE | 2025-05-26 19:14 | ESHP_ITS ---
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 States that his is also sick with flu-like symptoms but he states he has only had cough and shortness of breath. Denies pleuritic chest pain, fever, chills, new aches/pains, diarrhea. Tachycardic in ED, on 5 L NC saturating ~90%. Labs show leukocytosis, negative pro-flower, negative troponin and BNP. CXR showed mediastianl lymphadenopathy and mildly enlarged cardiac contour with vascular congestion and pulmonary edema. Will start on remdesivir and methylprednisolone for COVID, monitor oxygen requirements and restart cardiac medications including metoprolol, digoxin, and eliquis. Of note, states he took all of his cardiac meds today and continues to be tachycardic in 120-130s. Consider PRN metoprolol pushes if symptomatic or continues to uptrend. ----- Note reviewed and agree with care plan as documented. Please refer to the note below for further details. Plan discussed with attending physician Dr. Basia Torrez MD PGY-2 Internal Medicine Documentation for date of: 05/26/25 HPI History of Present Illness History of present illness: 65-year-old male with a history of atrial fibrillation, HFpEF (LVEF 55?60% as of 02/2025), sick sinus syndrome status post pacemaker placement, hypertension, and Castleman?s disease presents to the ED for evaluation of shortness of breath?for yesterday night and the night before. He also admits to nausea. No previous episode of similar symptoms. The patient describes a fullness sensation beginning in the epigastric region that moves up into his chest, which he associates with the shortness of breath. He was evaluated in this ED yesterday, diagnosed with pulmonary edema, and discharged home. However, he reports persistent symptoms, including difficulty sleeping due to dyspnea last night, and no improvement in symptoms this morning, prompting his return to the ED. He also reports associated symptoms of Belching sensation, Productive cough with clear sputum, and Hot sweats. He denies abdominal pain, nausea, vomiting, diarrhea, or urinary symptoms. Denies chills headaches heartburn. Reports that is also sick with COVID. ED Course: BP 123/83, HR 110, RR 24, T99.4, O2 88 on 5 L via NC. WBC 16.3, Hgb 17.1 glucose 157 LA 2.9 trended down to 1.8, ALP 296, AST 12, ALT 8, troponins less than 0.02, lipase 29, BNP 41. EKG showed atrial fibrillation with rapid ventricular response. CXR in the ED revealed: Bulky mediastinal lymphadenopathy including right paratracheal right tracheobronchial and bilateral hilar. Mild enlargement cardiac contour prominent vascular congestion and interstitial pulmonary edema consistent. Hilar the lung bases. Unipolar ventricular cardiac leads stable position. Prominent osteopenia.?? Allergies: None FHx: Positive Family Cardiac Disorders in mother, both parents PSHx: Positive Pacemaker and knee replacement surgery SHx: Never smoker, uses cannabis for nausea control, drinks beer occasionally. Exam Vital Signs Temp Pulse Resp BP Pulse Ox O2 Del Method O2 Flow Rate 98.2 F 118 H 24 H 149/95 H 91 L Nasal Cannula 5 05/26/25 18:12 05/26/25 18:12 05/26/25 18:12 05/26/25 18:12 05/26/25 18:12 05/26/25 18:12 05/26/25 18:12 Narrative Exam General: Alert and oriented x3, No apparent distress. Skin: Intact, Warm, no rashes. HEENT: Normocephalic, Atraumatic. Normal neck range of motion, Supple. Trachea midline. Respiratory: Wheezing present in right lower lobe, Breath sounds are equal bilaterally with equal chest expansion. Wheezing Cardiovascular: RRR, normal S1, S2, No murmurs. Distal pulses 2+ Abdomen: Abdomen soft, non-distended, without erythema, or lesions. Normotensive bowel sounds x4. Percussion tympanic. Palpation nontender in all four quadrants. No organomagely. No guarding or rebound present. Musculoskeletal/Extremities: No erythema, swelling, tenderness of any joints. No edema of BLE. DP pulses +2/3 b/l. Full active ROM of all four extremities. Neurologic: NEURO: Oriented x3, cranial nerves II to XII grossly intact. Muscle strength 5/5 on UE and LE b/l, Moves extremities x4. Sensation intact to gross touch along C6-T1 and L2-S1 dermatomes. No focal neurologic deficits noted Psych: Thoughts linear and responses appropriate. Results: Labs 05/27/25 06:25 05/27/25 06:25 Labs: Short CBC 05/26/25 Range/Units 09:25 WBC 16.3 H (3.8-10.6) Thou/mm3 Hgb 17.1 H (13.5-16.0) g/dL Hct 49.4 (41.0-53.0) % Plt Count 272 (140-440) Thou/mm3 BMP 05/26/25 09:25 Sodium 138 Potassium 3.8 Chloride 104 Carbon Dioxide 20.1 BUN 20 Creatinine 1.0 Glucose 157 H Calcium 10.2 Cardiac Enzymes 05/26/25 Range/Units 09:25 Troponin I < 0.020 (0.0-0.045) ng/mL Liver Function 05/26/25 Range/Units 09:25 Total Bilirubin 1.3 H (0.3-1.2) mg/dL AST 12 (0-34) U/L ALT 8 L (10-49) U/L Alkaline Phosphatase 296 H (46-116) U/L Albumin 4.4 (3.4-4.8) gm/dL Urine 05/26/25 Range/Units 14:33 Urine Color Yellow (Lt Yel-Yel) Urine Clarity Clear (Clear/Hazy) Urine pH 5.5 (5.0-7.0) Ur Specific [place] 1.035 (1.001-1.035) Urine Protein 1+ A (Neg - Trace) Urine Glucose (UA) Negative (Negative) ABG Interpretation ABG results: 05/26/25 17:00 ABG pH 7.43 ABG pCO2 33 ABG pO2 66 L ABG HCO3 22 ABG O2 Saturation 94 ABG Base Excess -1 Quality Measures Quality Measures none Advance care planning discussed with:: patient Medications Home Medications and Allergies Home Medications ?Medication ?Instructions ?Recorded ?Confirmed ?Type apixaban 5 mg tablet (Eliquis) 5 mg PO BID 12/12/23 History allopurinol 300 mg tablet 300 mg PO DAILY 03/16/2510/19 History lisinopril 20 mg tablet 20 mg PO DAILY 03/16/25 09/0 10/19 History albuterol sulfate 90 mcg/actuation 2 puff inhalation Q 4H PRN 05/26/25 05/26/25 History aerosol inhaler shortness of breath or wheez ing benzonatate 100 mg capsule 100 mg PO TID PRN cough 10/1905/26/25 History digoxin 125 mcg (0.125 mg) tablet 0.125 mg PO DAILY 05/26/25 History diltiazem HCl 240 mg capsule,24 240 mg PO Q24H 5 05/26/25 History hr,extended release doxycycline monohydrate 100 mg 100 mg PO Q12H 05/26/25 05/26/25 History capsule methotrexate sodium 2.5 mg tablet 15 mg PO .Q WEEKLY 0 05/26/25 05/26/25 History methylprednisolone 4 mg tablet 4 mg PO QDAY 05/26/25 0 05/26/25 History metoprolol tartrate 100 mg tablet 100 mg PO Q12H 05/2605/26/25 History Allergies Allergy/AdvReac Type Severity Reaction Status Date / Time No Known Allergies Allergy Verified 05/25/25 08:56 Visit Medications Acetaminophen (Acetaminophen 325 Mg Tablet) 650 mg PO Q6H PRN PRN Reason: PAIN 1-3 OR FEVER > 100.4 Stop: 06/25/25 18:14 Hydrocodone Bitart/Acetaminophen (Hydrocodone/Apap 5/325 Tablet) 1 tab PO Q6HR PRN PRN Reason: PAIN SCALE 4-6 (Moderate Stop: 05/31/25 18:19 Remdesivir 200 mg/ Sodium (Chloride) 250 mls @ 250 mls/hr IV X1 ONE; Protocol Stop: 05/26/25 19:44 Remdesivir 100 mg/ Sodium (Chloride) 100 mls @ 100 mls/hr IV QDAY@1400 DARLENE; Protocol Stop: 05/30/25 14:59 Methylprednisolone (Methylprednisolone 4 Mg Tablet) 6 mg PO DAILY DARLENE Stop: 06/26/25 08:59 Ondansetron HCl (Ondansetron Inj 2 Mg/Ml Inj 2 Ml) 4 mg IVP Q6H PRN; Protocol PRN Reason: NAUSEA OR VOMITING Stop: 06/25/25 18:19 Pantoprazole Sodium (Pantoprazole 40 Mg Tablet) 40 mg PO QDAY DARLENE Stop: 06/26/25 08:59 Discontinued Medications Hydrocodone Bitart/Acetaminophen (Hydrocodone/Apap 5/325 Tablet) 1 tab PO X1 ONE Stop: 05/26/25 13:44 Last Admin: 05/26/25 13:50 Dose: 1 tab Dexamethasone Sodium Phosphate (Dexamethasone Sod Phos Inj 10 Mg/Ml Vial) 6 mg IVP X1 ONE Stop: 05/26/25 14:43 Last Admin: 05/26/25 15:03 Dose: 6 mg Sodium Chloride (Ns) 1,000 mls @ 999 mls/hr IV .Q1H1M ONE Stop: 05/26/25 15:40 Last Infusion: 05/26/25 16:20 Dose: Infused Sodium Chloride (Sodium Chloride Rt 10% 15 Ml Nebu) 5 ml INH X1 ONE Stop: 05/26/25 18:26 Assessment & Plan Plan 65 year old male with history of atrial fibrillation, HFpEF (55-60% 02/2025), sick sinus syndrome s/p pacemaker placement, hypertension, Castleman's disease presents to the ED for evaluation of shortness of breath today #COVID_19 Patient came to the ED with 2-day history of shortness of breath, requiring 5 L via NC to saturate above 90%. Additionally patient reported that was sick with viral pneumonia. Positive COVID-19 test at ED patient requires 5 L via NC to saturate 91% WBC 16.3, procalcitonin negative. Plan: -methylprednisolone 6mg daily -Remdesivir 250mg x1 followed by 100mg x2 for the next two days. ?Patient in airborne precautions #Atrial fibrillation with RVR #Heart failure with preserved ejection fraction, EF 60 to 65%, November 2023, diastolic heart failure #Status post pacemaker, history of sick sinus syndrome Patient endorsing palpitations and came to the ED with A-fib RVR rate~120s-130s EKG in ED showed atrial fibrillation with rapid ventricular response, HR 110, down from 130 at presentation. ECHO 03/17/25:? Normal LV size Estimated EF 55-60%.? Diastolic function could not be evaluated because of A-fib.? Mild RV enlargement.? Normal RVSP. Moderate MR and moderate TR with trace AI Severe biatrial dilatation.? Dilated IVC.? No pericardial effusion. Moderate aortic valve sclerosis without stenosis. Plan ? Continue home dose digoxin 0.125 mg daily, was given additional dose of digoxin 0.125 x1 ? Continue home Eliquis 5 mg BID ? Keep K>4, Mg>2 ? Telemetry ? I's and O's #Lymphadenopathy #Castleman disease Patient has been worked up outpatient with [facility] for extensive lymphadenopathy, reported that he was ruled out for cancer.? On medication review patient was prescribed medications under diagnosis of Castleman disease by Dr. Venancio Gil heme-oncologist and [facility] Neck supraclavicular lymphadenopathy onset 03/15/2025. 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 Patient being managed by [facility] heme oncologist Dr. Venancio Gil. Health maintenance: Disposition: Cardiac telemetry PPx GI: Pantoprazole PPx DVT: Eliquis CODE STATUS: Full This case was discussed with my attending physician, Dr. Flor, and senior resident Dr Lore Alejandro. Alex Julio, DO PGY I Attending Provider Attestation/Addendum I reviewed labs, imaging, EKG, home medications and prior available records. Face to face evaluation was performed by me. I have personally examined the patient and discussed assessment and plan with the IM team. I reviewed the resident note and agree with the plan with exceptions as below. Acute hypoxic respiratory failure COVID-19 Leukocytosis, likely secondary to chronic steroid use versus acute infection HFpEF EF 55 to 60% A-fib with rapid ventricular response Status post PPM Castleman disease Started dexamethasone Started remdesivir Oxygen as needed Trend WBC Resume home digoxin, metoprolol, and Eliquis
[2025-05-26] MEDS: REMDESIVIR INJ 200 MG in SODIUM CHLORIDE 0.9% 250 ML 250 ML 250 MG IV (19:20)
[2025-05-26] MEDS: DILTIAZEM INJ 5 MG/ML VIAL 5 ML 15 MG IV (19:41)
[2025-05-26] MEDS: APIXABAN 2.5 MG TABLET 5 MG PO (21:07)
[2025-05-26] MEDS: METOPROLOL TARTRATE 25 MG TABLET 100 MG PO (21:07)
[2025-05-27] VITALS (11 sets, daily range): BP systolic 108–155; BP diastolic 58–95; PULSE 96–131; RESP 18–24; TEMP 36.2–36.8; O2SAT 92–95; BMI 33.6
[2025-05-27] MEDS: HYDROcodone/APAP 5/325 TABLET 1 TAB PO ×3 (04:35→20:30)
--- NOTE | 2025-05-27 05:47 | PC.NURSE ---
DR. MG NOTIFIED OF PT'S HR 120-140'S A. FIB RVR. PT RESTING, PT DENIES CHEST DISCOMFORT. NO ACUTE DISTRESS. BP 133/97. WILL PUT IN ORDER.
[2025-05-27] MEDS: DIGOXIN 0.125 MG TABLET PO (05:52)
[2025-05-27 06:36] LABS: Basophils # (Auto) 0.1 Thou/mm3 (0.0-0.2); Basophils % (Auto) 0 % (0-2.5); Eosinophils # (Auto) 0.0 Thou/mm3 (0.0-0.5); Eosinophils % (Auto) 0 % (0-10); Hematocrit 46.3 % (41.0-53.0); Hemoglobin 15.5 g/dL (13.5-16.0); Immature Granulocytes Auto 0.20 Thou/mm3 (0.00-0.00); Lymphocytes # (Auto) 1.0 Thou/mm3 (1.0-4.8); Lymphocytes % (Auto) 5 % (10-50); Mean Corpuscular HGB Conc 33.5 g/dl (31.0-37.0); Mean Corpuscular Hemoglobin 32.9 pg (25.0-35.0); Mean Corpuscular Volume 98 fL (80-100); Monocytes # (Auto) 1.2 Thou/mm3 (0.0-0.8); Monocytes % (Auto) 5 % (0-12); Neutrophils # (Auto) 19.6 Thou/mm3 (1.8-7.7); Neutrophils % (Auto) 89 % (37-80); Nucleated Red Blood Cell # 0.00 Thou/mm3 (0.00-0.00); Nucleated Red Blood Cell % 0 /100 WBC (0); Platelet Count 237 Thou/mm3 (140-440); RDW Standard Deviation 53.3 fL (35.1-43.9); Red Blood Count 4.71 Miln/mm3 (4.50-5.90); White Blood Count 22.1 Thou/mm3 (3.8-10.6)
[2025-05-27 07:13] LABS: Alanine Aminotransferase < 7 U/L (10-49); Albumin, Serum 4.0 gm/dL (3.4-4.8); Albumin/Globulin Ratio 1.5 (1.2-2.2); Alkaline Phosphatase 238 U/L (46-116); Anion Gap 9 (7-16); Aspartate Amino Transferase < 8 U/L (0-34); BUN/Creatinine Ratio 20 Ratio (12-20); Bilirubin,Total 0.8 mg/dL (0.3-1.2); Blood Urea Nitrogen 20 mg/dL (9-23); Calcium 9.9 mg/dL (8.3-10.6); Calcium (Corrected) 9.9 mg/dL (8.5-10.1); Carbon Dioxide 24.6 mMol/L (20.0-31.0); Cardiac Risk Estimate 4.8 RATIO (4.0-6.7); Chloride 104 mMol/L (98-107); Cholesterol 101 mg/dL (132-200); Creatinine (Component) 1.0 mg/dL (0.6-1.3); Estimated Creatinine Clearance 95.6 mL/min (>60); Globulin 2.7 gm/dL (2.3-3.5); Glucose 147 mg/dL (74-106); HDL Cholesterol 21 mg/dL (40-60); LDL Cholesterol,Calculated 61 mg/dL (0-130); Magnesium 1.6 mg/dL (1.6-2.6); Osmolality,Calculated 281 (275-295); Phosphorous 3.2 mg/dL (2.4-5.1); Potassium 4.4 mMol/L (3.4-5.1); Sodium 138 mMol/L (136-145); Thyroid Stimulating Hormone 0.69 uIU/mL (0.55-4.78); Total Protein 6.7 gm/dL (5.7-8.2); Triglycerides 94 mg/dL (30-150); eGFR > 60 See Note
[2025-05-27] MEDS: METOPROLOL TARTRATE 25 MG TABLET 100 MG PO ×2 (08:28→20:30)
[2025-05-27] MEDS: APIXABAN 2.5 MG TABLET 5 MG PO ×2 (08:30→20:30)
[2025-05-27] MEDS: PANTOPRAZOLE 40 MG TABLET PO (08:30)
[2025-05-27 09:27] LABS: Free T4 (Free Thyroxine) 1.48 ng/dL (0.89-1.76)
[2025-05-27] MEDS: Magnesium Sulfate 4 GM Ivpb 4 GM/50 ML BAG IV (10:33)
--- NOTE | 2025-05-27 11:50 | ESPR_ITS ---
<Statement entered by Mark Torrez MD - 05/27/25 18:16> No acute overnight events but patient did require a dose of diltiazem for his A- fib and cardiology was consulted. Seen and examined at bedside and patient states that his shortness of breath has not significantly improved despite being on methylprednisolone and remdesivir. Methylprednisolone switched to dexamethasone and added community-acquired pneumonia coverage given that his WBC elevated and requiring slightly more oxygen compared to yesterday. Otherwise, will continue with current management and await further recommendations from cardiology. ----- Note reviewed and agree with care plan as documented. Please refer to the note below for further details. Plan discussed with attending physician Dr. Basia Torrez MD PGY-2 Internal Medicine Documentation for date of: 05/27/25 Subjective Subjective Interval history: 65 y/o male with PMH of A fib on eliquis, HFpEF, sick sinus syndrome status post pacemaker, castleman's disease on Q3 week rituximab infusion, on admission day 2 for cough and shortness of breath; found to be Covid 19 +. Overnight patient had an episode of Afib RVR, HR 137. Patient was given diltiazam and then Eliquis. Cardiology consulted. Patient was seen at bedside today morning. Patient was resting comfortably on 6L nasal canula, just had breakfast, denies SOB, palpitations, or chest pain. Exam Vital Signs Temp Pulse Resp BP Pulse Ox O2 Del Method O2 Flow Rate 97.2 F 109 H 20 135/90 H 93 L Nasal Cannula 6 05/27/25 08:00 05/27/25 11:49 05/27/25 11:49 05/27/25 08:28 05/27/25 11:49 05/27/25 08:00 05/27/25 11:49 Narrative Exam General: Patient is fully alert and oriented. In no acute distress. Cardio: RRR, no mumurs, gallops or rubs appreciated. Resp: Equal breath sounds bilaterally. Mild diffuse wheezing appreciated, no stridor or rales auscultated. HEENT: Prominent left cervical lymph nodes palpated. PERRLA. Normocephalic/atraumatic MSK/Extremities: No pitting edema in lower extremities bilaterally, dorsalis pedis pulses +2 bilaterally. No signs of cyanosis. No muscle or joint pain with upper and lower extremity range of motion. GI: Abdomen soft in all quadrant. No signs of distension. No tenderness to palpation. Neuro: AAOx3, no focal motor or sensory deficits in the UE or LE bilat Psych: Good judgement, thought and behavior. Cooperative Objective Labs 05/27/25 06:25 05/27/25 06:25 Labs: Laboratory Results - last 24 hr 05/26/25 05/26/25 05/26/25 13:53 14:33 17:00 WBC RBC Hgb Hct MCV MCH MCHC RDW Std Deviation Plt Count Neut % (Auto) Lymph % (Auto) [place] % (Auto) Eos % (Auto) Baso % (Auto) Neut # (Auto) Lymph # (Auto) [place] # (Auto) Eos # (Auto) Baso # (Auto) Immature Gran # (Auto) Absolute Nucleated RBC Immature Gran % Nucleated RBC % Puncture Site Left Radial ABG pH 7.43 ABG pCO2 33 ABG pO2 66 L ABG HCO3 22 ABG O2 Saturation 94 ABG Base Excess -1 Oxygen Liter Flow 3 Sodium Potassium Chloride Carbon Dioxide Anion Gap BUN Creatinine Estim Creat Clear Calc eGFR BUN/Creatinine Ratio Glucose Calculated Osmolality Lactic Acid 1.8 Calcium Corrected Calcium Phosphorus Magnesium Total Bilirubin AST ALT Alkaline Phosphatase Total Protein Albumin Globulin Albumin/Globulin Ratio Triglycerides Cholesterol LDL Cholesterol, Calc HDL Cholesterol Cholesterol/HDL Ratio TSH Free T4 Ur Collection Type Clean Catch Urine Color Yellow Urine Clarity Clear Urine pH 5.5 Ur Specific [place] 1.035 Urine Protein 1+ A Urine Glucose (UA) Negative Urine Ketones Trace Urine Blood Trace Urine Nitrite Negative Urine Bilirubin Negative Urine Urobilinogen (Auto) 2.0 Ur Leukocyte Esterase Negative Urine RBC 2 Urine WBC 4 Ur Squamous Epith Cells 1 Urine Bacteria None 05/27/25 06:25 WBC 22.1 H D RBC 4.71 Hgb 15.5 Hct 46.3 MCV 98 MCH 32.9 MCHC 33.5 RDW Std Deviation 53.3 H Plt Count 237 D Neut % (Auto) 89 H Lymph % (Auto) 5 L [place] % (Auto) 5 Eos % (Auto) 0 Baso % (Auto) 0 Neut # (Auto) 19.6 H Lymph # (Auto) 1.0 [place] # (Auto) 1.2 H Eos # (Auto) 0.0 Baso # (Auto) 0.1 Immature Gran # (Auto) 0.20 H Absolute Nucleated RBC 0.00 Immature Gran % 1 H Nucleated RBC % 0 Puncture Site ABG pH ABG pCO2 ABG pO2 ABG HCO3 ABG O2 Saturation ABG Base Excess Oxygen Liter Flow Sodium 138 Potassium 4.4 D Chloride 104 Carbon Dioxide 24.6 Anion Gap 9 BUN 20 Creatinine 1.0 Estim Creat Clear Calc 95.6 eGFR > 60 BUN/Creatinine Ratio 20 Glucose 147 H Calculated Osmolality 281 Lactic Acid Calcium 9.9 Corrected Calcium 9.9 Phosphorus 3.2 Magnesium 1.6 Total Bilirubin 0.8 D AST < 8 ALT < 7 L Alkaline Phosphatase 238 H D Total Protein 6.7 Albumin 4.0 Globulin 2.7 Albumin/Globulin Ratio 1.5 Triglycerides 94 Cholesterol 101 L LDL Cholesterol, Calc 61 HDL Cholesterol 21 L Cholesterol/HDL Ratio 4.8 TSH 0.69 Free T4 1.48 Ur Collection Type Urine Color Urine Clarity Urine pH Ur Specific [place] Urine Protein Urine Glucose (UA) Urine Ketones Urine Blood Urine Nitrite Urine Bilirubin Urine Urobilinogen (Auto) Ur Leukocyte Esterase Urine RBC Urine WBC Ur Squamous Epith Cells Urine Bacteria ABG Interpretation ABG results: 05/26/25 17:00 ABG pH 7.43 ABG pCO2 33 ABG pO2 66 L ABG HCO3 22 ABG O2 Saturation 94 ABG Base Excess -1 Quality Measures Quality Measures none Advance care planning discussed with:: patient Assessment & Plan Assessment Current Active Medications: Generic Name Dose Route Start Last Admin Trade Name Freq PRN Reason Stop Dose Admin Acetaminophen 650 mg 05/26/25 18:15 Acetaminophen 325 Mg Tablet PO 06/25/25 18:14 Q6H PRN PAIN 1-3 OR FEVER > 100.4 Hydrocodone Bitart/Acetaminophen 1 tab 05/26/25 18:20 05/27/25 04:35 Hydrocodone/Apap 5/325 Tablet PO 05/31/25 18:19 1 tab Q6HR PRN Administration PAIN SCALE 4-6 (Moderate Apixaban 5 mg 05/26/25 21:00 05/27/25 08:30 Apixaban 2.5 Mg Tablet PO 06/25/25 20:59 5 mg BID DARLENE Administration Digoxin 0.125 mg 05/27/25 05:45 05/27/25 09:26 Digoxin 0.125 Mg Tablet PO 06/26/25 05:44 Not Given DAILY DARLENE Diltiazem HCl 240 mg 05/27/25 11:20 Diltiazem Cd 120 Mg Capcr PO 06/26/25 11:19 Q24H DARLENE Remdesivir 100 mg/ Sodium 100 mls @ 100 mls/hr 05/27/25 14:00 Chloride IV 05/30/25 14:59 QDAY@1400 DARLENE Protocol Magnesium Sulfate 4 gm in 50 mls @ 12.5 mls/hr 05/27/25 09:18 05/27/25 10:33 Magnesium Sulfate Ivpb IV 05/27/25 13:17 12.5 mls/hr X1 ONE Administration Ceftriaxone Sodium/Dextrose 1 gm in 50 mls @ 100 mls/hr 05/27/25 11:18 Rocephin/D5w 1gm Iv Premix IV 06/03/25 11:17 QDAY DARLENE Azithromycin 500 mg/ Sodium 250 mls @ 250 mls/hr 05/27/25 11:18 Chloride IV 06/03/25 11:17 QDAY DARLENE Methylprednisolone 6 mg 05/27/25 09:00 05/27/25 10:33 Methylprednisolone 4 Mg Tablet PO 06/26/25 08:59 6 mg DAILY DARLENE Administration Metoprolol Tartrate 100 mg 05/26/25 21:00 05/27/25 08:28 Metoprolol Tartrate 25 Mg Tablet PO 06/25/25 20:59 100 mg Q12H DARLENE Administration Ondansetron HCl 4 mg 05/26/25 18:20 Ondansetron Inj 2 Mg/Ml Inj 2 Ml IVP 06/25/25 18:19 Q6H PRN NAUSEA OR VOMITING Protocol Pantoprazole Sodium 40 mg 05/27/25 09:00 05/27/25 08:30 Pantoprazole 40 Mg Tablet PO 06/26/25 08:59 40 mg QDAY DARLENE Administration Plan 65 year old male with history of atrial fibrillation, HFpEF (55-60% 02/2025), sick sinus syndrome s/p pacemaker placement, hypertension, Castleman's disease admitted for Covid 19 and associated SOB and cough. #COVID_19 #Leukocytosis 2-day history of shortness of breath, requiring 6L via NC. had flu like symptoms at home. Positive COVID-19 test at ED WBC increased to 22.1 (16.3 yesterday), procalcitonin negative. 4C mortality score of 7, 9.1-9.9% In-hospital mortality Plan: - methylprednisolone 6mg daily - Remdesivir 250mg x1 followed by 100mg x2 for the next two days. - Patient in airborne precautions - Ceftriaxone 1g Qday IV - Azithromycin 500 mg Qday IV - Cont to monitor daily CBC and CMP #Atrial fibrillation with RVR #Heart failure with preserved ejection fraction, EF 60 to 65%, November 2023, diastolic heart failure #Status post pacemaker, history of sick sinus syndrome CHADSVASc Score: 2 (2.2% stroke risk) HAS-BLED score: 1 Patient endorsing palpitations and came to the ED with A-fib RVR rate~120s-130s EKG in ED showed atrial fibrillation with rapid ventricular response, HR 110, down from 130 at presentation. ECHO 03/17/25:? Normal LV size Estimated EF 55-60%.? Diastolic function could not be evaluated because of A-fib.? Mild RV enlargement.? Normal RVSP. Moderate MR and moderate TR with trace AI Severe biatrial dilatation.? Dilated IVC.? No pericardial effusion. Moderate aortic valve sclerosis without stenosis. Patient sees Dr. Kervin Marquez for Afib and has home medications: Eliquis 5mg PO BID, Digoxin 125mcg PO QD, Diltiazem Hcl 240mg Qday, Metoprolol 100mg PO Q12H Plan ? Continue home dose digoxin 0.125 mg daily ? Continue home Eliquis 5 mg BID - Cont Diltiazem 240 mg - Cont Metoprolol 100 mg Q12H - Magnesium repleted ? Keep K>4, Mg>2 ? Telemetry ? I's and O's #Lymphadenopathy #Castleman disease Patient has been worked up outpatient with [facility] for extensive lymphadenopathy, reported that he was ruled out for cancer.? On medication review patient was prescribed medications under diagnosis of Castleman disease by Dr. Venancio Gil heme-oncologist and [facility] Neck supraclavicular lymphadenopathy onset 03/15/2025. 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 Patient being managed by [facility] heme oncologist Dr. Venancio Gil. Health Maintenance: Code Status: Full DVT Prophylaxis: SCDs, Eliquis GI Prophylaxis: Protonix Diet: Cardiac Moura: None Lines: PIV Supplemental O2: Nasal Canula Disposition: Telemetry Patient seen and care discussed with my attending physician, Dr. Flor and my senior residents, Dr. Rao, and Dr. Javon Sales, [facility] Attending Provider Attestation/Addendum I reviewed labs, imaging, EKG, home medications and prior available records. Face to face evaluation was performed by me. I have personally examined the patient and discussed assessment and plan with the IM team. I reviewed the resident note and agree with the plan with exceptions as below. Acute hypoxic respiratory failure COVID-19 Leukocytosis, likely secondary to chronic steroid use versus acute infection HFpEF EF 55 to 60% A-fib with rapid ventricular response Status post PPM Castleman disease Started dexamethasone Started remdesivir Oxygen as needed Trend WBC: Uptrending. Started ceftriaxone/azithromycin Resume homed digoxin, metoprolol, and Eliquis. Resumed home diltiazem Consulted cardiology
[2025-05-27] MEDS: DILTIAZEM CD 120 MG CAPCR 240 MG PO (13:05)
[2025-05-27] MEDS: AZITHROMYCIN INJ 500 MG in SODIUM CHLORIDE 0.9% 250 ML 250 ML 250 MG IV (13:05)
[2025-05-27] MEDS: cefTRIAXone/D5w 1gm IV premix 1 GM/50 ML BAG IV (14:21)
--- NOTE | 2025-05-27 14:57 | PC.SS ---
Patient is alert/oriented. Patient admitted for covid/pneumonia. SS spoke to who states patient is very independent with ADL's. No DME. PCP: Dr. Broussard at [facility]. Pharmacy: [facility]. states patient gets infusions once a month in [place] at the [facility]. Patient has an upcoming appt this Monday. Family take patient to appointments. Patient also follows up with Oncologist at [facility] once a month. states patient will return home once medically stable. is alternate medical decision maker, Luana Pena, [phone] d/c plan: home transportation: family
[2025-05-27] MEDS: REMDESIVIR INJ 100 MG in SODIUM CHLORIDE 0.9% 100 ML IV (14:58)
--- NOTE | 2025-05-27 22:42 | ESCONSULT_ITS ---
RE: SALVADOR GUTIERREZ : 1960 DATE OF CONSULTATION: 05/27/2025 CONSULTING PHYSICIAN: Hospitalist and Surya Rao MD, PGY-3 REASON FOR CONSULTATION: Evaluation of the patient for atrial fibrillation, rapid ventricular response. CHIEF COMPLAINT: Shortness of breath, cough with expectoration and weakness. HISTORY OF PRESENT ILLNESS: The patient is well-known to wi 65-year-old male with history of chronic atrial fibrillation, requiring multiple medications including combination of digoxin, metoprolol, diltiazem for rate control, Castleman disease, lymphoproliferative disorder followed by [facility] with MAP therapy and immunosuppressive state and persistent lymphadenopathy, longstanding hypertension, negative coronary angiogram and pacemaker implantation and AV node ablation. He has been doing fairly well until recently. Last week after he was having progressive shortness of breath, weakness, cough, expectoration, admitted to the hospital, there appears to be bronchopneumonia and pulmonary infiltrate and the patient has persistent lymphadenopathy as well. The patient was tested for COVID positive as well. The patient had a cardiology consult recommended because the patient continues to have rapid heart rate and atrial fibrillation. The patient was started on remdesivir. He received a dose in the emergency room initially. Currently, he is due to restart all his home medications including metoprolol and Cardizem. He has been started on azithromycin, ceftriaxone and remdesivir because of COVID. I reviewed a CT scan that showed evidence of pulmonary nodules and small viral pleural effusions as well as possible bronchopneumonia. He is not having any chest pain or shortness of breath. No cardiac symptoms. His blood pressure is still slightly elevated. . MEDICATIONS AT HOME: 1. Allopurinol 300 mg daily 2. Digoxin 125 mcg daily 3. Diltiazem 240 mg daily 4. Metoprolol 100 mg twice daily 5. Methotrexate 15 mg daily 6. MAP therapy . 7. Eliquis 5 mg daily 8. Lisinopril 20 mg daily PAST MEDICAL HISTORY: Negative angiogram, chronic atrial fibrillation requiring multiple medications, pacemaker implantation, hypertension, Castleman disease. SOCIAL HISTORY: The patient has a supportive family, does not smoke or do alcoholic beverages. FAMILY HISTORY: Noncontributory. REVIEW OF SYSTEMS: Cardiovascular: Shortness of breath, cough, but no chest pain. Some palpitations. Gastrointestinal: No nausea or vomiting. WILD LIFE PHOTOGRAPHER: No neurologic symptoms. PHYSICAL EXAMINATION: GENERAL: Well nourished pleasant male, comfortable, alert, awake, in no acute distress. VITAL SIGNS: Blood pressure 185/84, pulse rate is 110, respirations 24, temperature 98, initial was 100.4, oxygen saturation _98 percent 4L nasal cannula. HEENT: Head is atraumatic. NECK: Supple. No JVD. CHEST/LUNGS: Decreased breath sounds, bilateral, mild wheezes, but no crackles. Diminished breath sounds basal. HEART: S1, S2 irregular, tachycardia. ABDOMEN: Thin and soft. EXTREMITIES: Mildly edema. GENITOURINARY AND RECTAL: Not performed. NEUROLOGIC: Unremarkable. LABORATORY DATA: Reviewed again showed evidence of initial white count was 13.3,Chemistry panel shows normal renal function and slight elevation of glucose. DIAGNOSTIC DATA: Electrocardiogram shows atrial fibrillation, rapid ventricular response. IMPRESSION: 1. Atrial fibrillation with rapid ventricular response, possibly aggravated by the remdesivir. The patient will be recommended to continue metoprolol 100 mg twice daily, Cardizem CD 240 mg daily. Use IV diltiazem to slow the heart rate. Reasonable to control between 90 plus or minus 10, 110 to 90 beats per minute. 2. COVID positive test, but no significant pneumonia, mild infiltrate. The patient wishes to stop remdesivir completely. It is causing arrhythmias. There is no clinical benefit for this patient. There is no evidence that remdesivir helps COVID-19 in 2024. This should be discontinued immediately. No need for this medication. I would aggressively manage underlying bronchial pneumonia with azithromycin and ceftriaxone, but remdesivir will be discontinued. 3. Atrial fibrillation. 4. Status post pacemaker implantation. 5. Hypertension. Continue current medication including combination of diltiazem, metoprolol, lisinopril and digoxin to be continued for rate control as well. Thank you for referring this patient for cardiovascular evaluation. We will be glad to follow the patient with you. DT: 20:22:12 TT: 22:23:00 Ref: [id number] - TID: [id number] MTDD
[2025-05-28] VITALS (16 sets, daily range): BP systolic 116–148; BP diastolic 72–99; PULSE 89–139; RESP 16–25; TEMP 35.9–36.6; O2SAT 90–94; BMI 33.6
[2025-05-28 06:10] LABS: Basophils # (Auto) 0.0 Thou/mm3 (0.0-0.2); Basophils % (Auto) 0 % (0-2.5); Eosinophils # (Auto) 0.1 Thou/mm3 (0.0-0.5); Eosinophils % (Auto) 1 % (0-10); Hematocrit 44.8 % (41.0-53.0); Hemoglobin 15.2 g/dL (13.5-16.0); Immature Granulocytes Auto 0.18 Thou/mm3 (0.00-0.00); Lymphocytes # (Auto) 1.2 Thou/mm3 (1.0-4.8); Lymphocytes % (Auto) 6 % (10-50); Mean Corpuscular HGB Conc 33.9 g/dl (31.0-37.0); Mean Corpuscular Hemoglobin 33.2 pg (25.0-35.0); Mean Corpuscular Volume 98 fL (80-100); Monocytes # (Auto) 1.2 Thou/mm3 (0.0-0.8); Monocytes % (Auto) 6 % (0-12); Neutrophils # (Auto) 17.1 Thou/mm3 (1.8-7.7); Neutrophils % (Auto) 86 % (37-80); Nucleated Red Blood Cell # 0.00 Thou/mm3 (0.00-0.00); Nucleated Red Blood Cell % 0 /100 WBC (0); Platelet Count 199 Thou/mm3 (140-440); RDW Standard Deviation 53.0 fL (35.1-43.9); Red Blood Count 4.58 Miln/mm3 (4.50-5.90); White Blood Count 19.8 Thou/mm3 (3.8-10.6)
[2025-05-28 06:53] LABS: Alanine Aminotransferase < 7 U/L (10-49); Albumin, Serum 3.9 gm/dL (3.4-4.8); Albumin/Globulin Ratio 1.5 (1.2-2.2); Alkaline Phosphatase 211 U/L (46-116); Anion Gap 12 (7-16); Aspartate Amino Transferase 10 U/L (0-34); BUN/Creatinine Ratio 21 Ratio (12-20); Bilirubin,Total 0.7 mg/dL (0.3-1.2); Blood Urea Nitrogen 17 mg/dL (9-23); Calcium 9.5 mg/dL (8.3-10.6); Calcium (Corrected) 9.6 mg/dL (8.5-10.1); Carbon Dioxide 22.0 mMol/L (20.0-31.0); Chloride 101 mMol/L (98-107); Creatinine (Component) 0.8 mg/dL (0.6-1.3); Estimated Creatinine Clearance 119.4 mL/min (>60); Globulin 2.6 gm/dL (2.3-3.5); Glucose 115 mg/dL (74-106); Magnesium 1.8 mg/dL (1.6-2.6); Osmolality,Calculated 272 (275-295); Potassium 4.3 mMol/L (3.4-5.1); Sodium 135 mMol/L (136-145); Total Protein 6.5 gm/dL (5.7-8.2); eGFR > 60 See Note
--- NOTE | 2025-05-28 07:56 | PC.NURSE ---
pt desats 87% on 4L o2 standing at bedside
[2025-05-28] MEDS: DIGOXIN 0.125 MG TABLET PO (08:12)
[2025-05-28] MEDS: PANTOPRAZOLE 40 MG TABLET PO (08:12)
[2025-05-28] MEDS: APIXABAN 2.5 MG TABLET 5 MG PO ×2 (08:12→20:56)
[2025-05-28] MEDS: cefTRIAXone/D5w 1gm IV premix 1 GM/50 ML BAG IV (08:12)
[2025-05-28] MEDS: METOPROLOL TARTRATE 25 MG TABLET 100 MG PO ×2 (08:12→20:55)
[2025-05-28] MEDS: AZITHROMYCIN INJ 500 MG in SODIUM CHLORIDE 0.9% 250 ML 250 ML 250 MG IV (09:15)
[2025-05-28] MEDS: DILTIAZEM CD 120 MG CAPCR 240 MG PO (11:41)
--- NOTE | 2025-05-28 11:45 | ESPR_ITS ---
<Statement entered by Mark Torrez MD - 05/28/25 12:56> No acute overnight events. Seen and examined at bedside patient states that there is no improvement in her shortness of breath. Spoke to cardiology and stated that recommended against DuoNebs at this time and recommended to start Bumex 1 mg IV twice daily. Remdesivir also DC'd by cardiology and patient currently on dexamethasone, ceftriaxone, and azithromycin. Repeat CXR obtained today that showed slightly more infiltrate in the right lower lobe with unchanged extensive mediastinal lymphadenopathy. Will add inhaled budesonide. Heart rate improving with current management and will conitnue monitor oxygen requirments and patient's shortness of breath after addition of bumex and budesonide. Sputum culture showed mixed oral mignon and blood cultures still pending. ----- Note reviewed and agree with care plan as documented. Please refer to the note below for further details. Plan discussed with attending physician Dr. Basia Torrez MD PGY-2 Internal Medicine Documentation for date of: 05/28/25 Subjective Subjective Interval history: 65 y/o male with PMH of A fib, HFpEF, sick sinus syndrome status post pacemaker, castleman's disease on Q3 week rituximab infusion, on admission day 3 for cough and shortness of breath; found to be Covid 19 +. Overnight patient was tachycardic with HR 110-125. No other significant overnight events. Patient was seen at bedside today morning by the whole team. Patient was in more distress than yesterday. Seemed unhappy with lack of progress. Still notes SOB, currently on 6L Nasal canula. Patient was unwilling to try Duonebs and raised concerns of it worsening his heart rate. Understood and willing to try budesonide. Exam Vital Signs Temp Pulse Resp BP Pulse Ox O2 Del Method O2 Flow Rate 96.6 F L 116 H 18 134/98 H 91 L Nasal Cannula 4 05/28/25 08:00 05/28/25 11:41 05/28/25 08:00 05/28/25 11:41 05/28/25 08:00 05/28/25 08:00 05/28/25 08:00 Narrative Exam General: Patient is fully alert and oriented. In mild distress due to limited progress. Cardio: RRR, no mumurs, gallops or rubs appreciated. Resp: Equal breath sounds bilaterally. No wheezing appreciated, no stridor or rales auscultated. Increased work of breathing. HEENT: Prominent left cervical lymph nodes palpated. PERRLA. Normocephalic/atraumatic MSK/Extremities: No pitting edema in lower extremities bilaterally, dorsalis pedis pulses +2 bilaterally. No signs of cyanosis. No muscle or joint pain with upper and lower extremity range of motion. GI: Abdomen soft in all quadrant. No signs of distension. No tenderness to palpation. Neuro: AAOx3, no focal motor or sensory deficits in the UE or LE bilat Psych: Good judgement, thought and behavior. Cooperative Objective Labs 05/28/25 05:28 05/28/25 05:28 Labs: Laboratory Results - last 24 hr 05/28/25 05:28 WBC 19.8 H RBC 4.58 Hgb 15.2 Hct 44.8 MCV 98 MCH 33.2 MCHC 33.9 RDW Std Deviation 53.0 H Plt Count 199 D Neut % (Auto) 86 H Lymph % (Auto) 6 L Harper % (Auto) 6 Eos % (Auto) 1 Baso % (Auto) 0 Neut # (Auto) 17.1 H Lymph # (Auto) 1.2 Harper # (Auto) 1.2 H Eos # (Auto) 0.1 Baso # (Auto) 0.0 Immature Gran # (Auto) 0.18 H Absolute Nucleated RBC 0.00 Immature Gran % 1 H Nucleated RBC % 0 Sodium 135 L Potassium 4.3 Chloride 101 Carbon Dioxide 22.0 Anion Gap 12 BUN 17 Creatinine 0.8 Estim Creat Clear Calc 119.4 eGFR > 60 BUN/Creatinine Ratio 21 H Glucose 115 H Calculated Osmolality 272 L Calcium 9.5 Corrected Calcium 9.6 Magnesium 1.8 Total Bilirubin 0.7 AST 10 ALT < 7 L Alkaline Phosphatase 211 H D Total Protein 6.5 Albumin 3.9 Globulin 2.6 Albumin/Globulin Ratio 1.5 ABG Interpretation ABG results: 05/26/25 17:00 ABG pH 7.43 ABG pCO2 33 ABG pO2 66 L ABG HCO3 22 ABG O2 Saturation 94 ABG Base Excess -1 Quality Measures Quality Measures none Advance care planning discussed with:: patient Assessment & Plan Assessment Current Active Medications: Generic Name Dose Route Start Last Admin Trade Name Freq PRN Reason Stop Dose Admin Acetaminophen 650 mg 05/26/25 18:15 Acetaminophen 325 Mg Tablet PO 06/25/25 18:14 Q6H PRN PAIN 1-3 OR FEVER > 100.4 Hydrocodone Bitart/Acetaminophen 1 tab 05/26/25 18:20 05/27/25 20:30 Hydrocodone/Apap 5/325 Tablet PO 05/31/25 18:19 1 tab Q6HR PRN Administration PAIN SCALE 4-6 (Moderate Albuterol/Ipratropium 3 ml 05/28/25 13:00 Albuterol/Ipratropium (Duoneb) Rt Dominiuqe 3 Ml Nebu INH 06/27/25 12:59 Q6HRRT DARLENE Apixaban 5 mg 05/26/25 21:00 05/28/25 08:12 Apixaban 2.5 Mg Tablet PO 06/25/25 20:59 5 mg BID DARLENE Administration Budesonide 1 mg 05/28/25 11:00 05/28/25 11:25 Budesonide Rt 0.5 Mg/2 Ml Nebu INH 06/27/25 10:59 Not Given BIDRT DARLENE Dexamethasone 6 mg 05/27/25 12:30 05/28/25 08:14 Dexamethasone 4 Mg Tablet PO 06/04/25 09:01 6 mg QDAY DARLENE Administration Digoxin 0.125 mg 05/27/25 05:45 05/28/25 08:12 Digoxin 0.125 Mg Tablet PO 06/26/25 05:44 0.125 mg DAILY DARLENE Administration Diltiazem HCl 240 mg 05/27/25 11:20 05/28/25 11:41 Diltiazem Cd 120 Mg Capcr PO 06/26/25 11:19 240 mg Q24H DARLENE Administration Ceftriaxone Sodium/Dextrose 1 gm in 50 mls @ 100 mls/hr 05/27/25 11:18 05/28/25 08:12 Rocephin/D5w 1gm Iv Premix IV 06/03/25 11:17 100 mls/hr QDAY DARLENE Administration Azithromycin 500 mg/ Sodium 250 mls @ 250 mls/hr 05/27/25 11:18 05/28/25 09:15 Chloride IV 06/03/25 11:17 250 mls/hr QDAY DARLENE Administration Metoprolol Tartrate 100 mg 05/26/25 21:00 05/28/25 08:12 Metoprolol Tartrate 25 Mg Tablet PO 06/25/25 20:59 100 mg Q12H DARLENE Administration Ondansetron HCl 4 mg 05/26/25 18:20 Ondansetron Inj 2 Mg/Ml Inj 2 Ml IVP 06/25/25 18:19 Q6H PRN NAUSEA OR VOMITING Protocol Pantoprazole Sodium 40 mg 05/27/25 09:00 05/28/25 08:12 Pantoprazole 40 Mg Tablet PO 06/26/25 08:59 40 mg QDAY DARLENE Administration Plan 65 year old male with history of atrial fibrillation, HFpEF (55-60% 02/2025), sick sinus syndrome s/p pacemaker placement, hypertension, Castleman's disease admitted for Covid 19 and associated SOB and cough. #COVID_19 #Leukocytosis- improving 3-day history of shortness of breath, requiring 6L via NC. had flu like symptoms at home. Positive COVID-19 test at ED Persistent shortness of breath, patient has to sit up in tripod position to be comfortable. Patient reporting significant productive cough. WBC 19.8 (22.1 yesterday, trending down), procalcitonin negative. 4C mortality score of 7, 9.1-9.9% In-hospital mortality Plan: - methylprednisolone switched to Dexamethasone 6 mg PO Qday - Remdesivir discontinued as per Dr. Marquez, could have triggered Afib. It was initially used as it is a class 1B FDA approved for hospitalized patients with Covid 19 requiring supplemental oxygen. - No Duoneb breathing therapy at this moment as per cardiology, likely to worsen HR. - 1mg Bumex BID (as per Dr. Marquez) - Budesenide IVP 1mg BID - Mucinex PO BID - Chest x-ray ordered- showing worsening infilterate - Patient in airborne precautions - Ceftriaxone 1g Qday IV - Azithromycin 500 mg Qday IV - Nursing orders to increase mobility and ambulation PRN, and check ambulatory O2. - Spirometer ordered - PT and chest phsio therapy ordered. - Cont to monitor daily CBC and CMP #Atrial fibrillation with RVR #Heart failure with preserved ejection fraction, EF 60 to 65%, November 2023, diastolic heart failure #Status post pacemaker, history of sick sinus syndrome CHADSVASc Score: 2 (2.2% stroke risk) HAS-BLED score: 1 Patient endorsing palpitations and came to the ED with A-fib RVR rate~120s-130s EKG in ED showed atrial fibrillation with rapid ventricular response, HR 110, down from 130 at presentation. ECHO 03/17/25:? Normal LV size Estimated EF 55-60%.? Diastolic function could not be evaluated because of A-fib.? Mild RV enlargement.? Normal RVSP. Moderate MR and moderate TR with trace AI Severe biatrial dilatation.? Dilated IVC.? No pericardial effusion. Moderate aortic valve sclerosis without stenosis. Patient sees Dr. Kervin Marquez for Afib and has home medications: Eliquis 5mg PO BID, Digoxin 125mcg PO QD, Diltiazem Hcl 240mg Qday, Metoprolol 100mg PO Q12H Plan ? Cardiology (Dr. Kervin Marquez) on board. - Continue home dose digoxin 0.125 mg daily ? Continue home Eliquis 5 mg BID - Cont Diltiazem 240 mg QD - Cont Metoprolol 100 mg Q12H - HR goal of 90-110 - Magnesium repleted ? Keep K>4, Mg>2 ? Telemetry ? I's and O's #Lymphadenopathy #Castleman disease Patient has been worked up outpatient with [facility] for extensive lymphadenopathy, reported that he was ruled out for cancer.? On medication review patient was prescribed medications under diagnosis of Castleman disease by Dr. Venancio Gil heme-oncologist and [facility] Neck supraclavicular lymphadenopathy onset 03/15/2025. 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 Patient being managed by [facility] heme oncologist Dr. Venancio Gil. Health Maintenance: Code Status: Full DVT Prophylaxis: SCDs, Eliquis GI Prophylaxis: Protonix Diet: Cardiac diet, limit fluids to 2L [place]: None Lines: PIV Supplemental O2: Nasal Canula Disposition: Currently in Telemetry, will be discharged to home Patient seen and care discussed with my attending physician, Dr. Flor and my senior residents, Dr. Rao, and Dr. Javon Sales, [facility] [place], [place]-[facility] Attending Provider Attestation/Addendum I reviewed labs, imaging, EKG, home medications and prior available records. Face to face evaluation was performed by me. I have personally examined the patient and discussed assessment and plan with the IM team. I reviewed the resident note and agree with the plan with exceptions as below. Acute hypoxic respiratory failure COVID-19 Leukocytosis, likely secondary to chronic steroid use versus acute infection HFpEF EF 55 to 60% A-fib with rapid ventricular response Status post PPM Castleman disease Started dexamethasone Discontinued remdesivir per cardiology recommendations. Oxygen requirements increased. Ordered chest x-ray. Ordered IV Lasix WBC is significantly elevated. Started ceftriaxone/azithromycin Resumed homed digoxin, metoprolol, and Eliquis. Resumed home diltiazem. Can use IV diltiazem for uncontrolled heart rate per cardiology recommendations Consulted cardiology and following Ordered PT
--- NOTE | 2025-05-28 11:46 | XR_ITS ---
Examination: AP chest single view TECHNIQUE: AP portable upright chest single view Date and time: May 28, 2025 1225 hours, comparison 05/26/2025 INDICATIONS: Shortness of breath beginning 2 days ago. FINDINGS: Extensive abnormal mediastinal lymphadenopathy again noted Unipolar ventricular cardiac lead satisfactory position Enlarged cardiac contour with prominent vascular congestion and perihilar edema Basilar edema and/or pneumonia with mild to moderate bilateral pleural effusions IMPRESSION: Extensive abnormal mediastinal lymphadenopathy Mild heart failure Bibasilar edema and/or pneumonia
[2025-05-28] MEDS: BUMETANIDE INJ 0.25 MG/ML VIAL 4 ML 1 MG IVP (13:24)
[2025-05-28] MEDS: Magnesium Sulfate 4 GM Ivpb 4 GM/50 ML BAG IV (13:24)
--- NOTE | 2025-05-28 15:53 | PC.SS ---
rounding note: Patient is still requiring 02, patient on steroids. Patient covid positive
--- NOTE | 2025-05-28 18:03 | ESPR_ITS ---
<Statement entered by Kervin Marquez MD - 05/28/25 22:55> The patient is very well-known to be examined the patient along with PGY 2 Dr. Cameron evaluated patient with resident physician agree with treatment plan recommendation patient did have some sinopulmonary congestion shortness breath agree with a low-dose of Bumex 1 mg twice daily for now monitor renal function closely. Patient's heart rate is controlled reasonably well still on the faster side continue diltiazem metoprolol and digoxin combination with a heart rate goes from 130 use IV diltiazem 10 mg boluses as necessary. Documentation for date of: 05/28/25 Subjective Subjective Interval history: Patient seen today at the bedside found awake, alert, orientedx3. No overnight events reported. Vitals and labs reviewed. Still irregularly irregular however patient has chronic afib, rate noted to be around 110s after discontinuing remdesivir. No active complaints patient states he is feeling much better in regards to his breathing after being started on Bumex 1 mg IV twice daily for his shortness of breath, although still requiring 4L of O2 via NC. Currently on ceftriaxone and azithromycin for management of pneumonia. Remdesivir discontinued yesterday. Overall patient clinically improving. Exam Vital Signs Temp Pulse Resp BP Pulse Ox O2 Del Method O2 Flow Rate 97.0 F 107 H 16 143/94 H 90 L Nasal Cannula 5 05/28/25 16:00 05/28/25 16:00 05/28/25 16:00 05/28/25 16:00 05/28/25 16:00 05/28/25 16:00 05/28/25 16:00 Narrative Exam GENERAL: NAD, AAOx3 HEENT: Moist mucosa. Eyes open, symmetrical, & clear CARDIO: Heart irregularly irregular, no obvious murmurs PULM: some dyspnea CTA B/L, no R/W/R GI: Abdomen soft, nondistended, no pain on palpation. BSx4 SKIN/MSK/EXT: B/L lower extremity livedo retiularis, also some peripheral edema noted, no pain on palpation. Pedal pulses present B/L NEURO: AAOx3, no focal neuro deficits, able to move all 4 extremities Objective Labs 05/28/25 05:28 05/28/25 05:28 Labs: Laboratory Results - last 24 hr 05/28/25 05:28 WBC 19.8 H RBC 4.58 Hgb 15.2 Hct 44.8 MCV 98 MCH 33.2 MCHC 33.9 RDW Std Deviation 53.0 H Plt Count 199 D Neut % (Auto) 86 H Lymph % (Auto) 6 L [place] % (Auto) 6 Eos % (Auto) 1 Baso % (Auto) 0 Neut # (Auto) 17.1 H Lymph # (Auto) 1.2 [place] # (Auto) 1.2 H Eos # (Auto) 0.1 Baso # (Auto) 0.0 Immature Gran # (Auto) 0.18 H Absolute Nucleated RBC 0.00 Immature Gran % 1 H Nucleated RBC % 0 Sodium 135 L Potassium 4.3 Chloride 101 Carbon Dioxide 22.0 Anion Gap 12 BUN 17 Creatinine 0.8 Estim Creat Clear Calc 119.4 eGFR > 60 BUN/Creatinine Ratio 21 H Glucose 115 H Calculated Osmolality 272 L Calcium 9.5 Corrected Calcium 9.6 Magnesium 1.8 Total Bilirubin 0.7 AST 10 ALT < 7 L Alkaline Phosphatase 211 H D Total Protein 6.5 Albumin 3.9 Globulin 2.6 Albumin/Globulin Ratio 1.5 ABG Interpretation ABG results: 05/26/25 17:00 ABG pH 7.43 ABG pCO2 33 ABG pO2 66 L ABG HCO3 22 ABG O2 Saturation 94 ABG Base Excess -1 Quality Measures Quality Measures none Advance care planning discussed with:: patient Assessment & Plan Assessment Current Active Medications: Generic Name Dose Route Start Last Admin Trade Name Freq PRN Reason Stop Dose Admin Acetaminophen 650 mg 05/26/25 18:15 Acetaminophen 325 Mg Tablet PO 06/25/25 18:14 Q6H PRN PAIN 1-3 OR FEVER > 100.4 Hydrocodone Bitart/Acetaminophen 1 tab 05/26/25 18:20 05/27/25 20:30 Hydrocodone/Apap 5/325 Tablet PO 05/31/25 18:19 1 tab Q6HR PRN Administration PAIN SCALE 4-6 (Moderate Apixaban 5 mg 05/26/25 21:00 05/28/25 08:12 Apixaban 2.5 Mg Tablet PO 06/25/25 20:59 5 mg BID DARLENE Administration Budesonide 1 mg 05/28/25 11:00 05/28/25 11:25 Budesonide Rt 0.5 Mg/2 Ml Nebu INH 06/27/25 10:59 Not Given BIDRT DARLENE Bumetanide 1 mg 05/28/25 11:45 05/28/25 13:24 Bumetanide Inj 0.25 Mg/Ml Vial 4 Ml IVP 06/27/25 11:44 1 mg BID DARLENE Administration Dexamethasone 6 mg 05/27/25 12:30 05/28/25 08:14 Dexamethasone 4 Mg Tablet PO 06/04/25 09:01 6 mg QDAY DARLENE Administration Digoxin 0.125 mg 05/27/25 05:45 05/28/25 08:12 Digoxin 0.125 Mg Tablet PO 06/26/25 05:44 0.125 mg DAILY DARLENE Administration Diltiazem HCl 240 mg 05/27/25 11:20 05/28/25 11:41 Diltiazem Cd 120 Mg Capcr PO 06/26/25 11:19 240 mg Q24H DARLENE Administration Guaifenesin/Dextromethorphan 1 each 05/28/25 21:00 Guaifenesin/Dm Tablet PO 06/27/25 20:59 BID DARLENE Ceftriaxone Sodium/Dextrose 1 gm in 50 mls @ 100 mls/hr 05/27/25 11:18 05/28/25 08:12 Rocephin/D5w 1gm Iv Premix IV 06/03/25 11:17 100 mls/hr QDAY DARLENE Administration Azithromycin 500 mg/ Sodium 250 mls @ 250 mls/hr 05/27/25 11:18 05/28/25 09:15 Chloride IV 06/03/25 11:17 250 mls/hr QDAY DARLENE Administration Metoprolol Tartrate 100 mg 05/26/25 21:00 05/28/25 08:12 Metoprolol Tartrate 25 Mg Tablet PO 06/25/25 20:59 100 mg Q12H DARLENE Administration Ondansetron HCl 4 mg 05/26/25 18:20 Ondansetron Inj 2 Mg/Ml Inj 2 Ml IVP 06/25/25 18:19 Q6H PRN NAUSEA OR VOMITING Protocol Pantoprazole Sodium 40 mg 05/27/25 09:00 05/28/25 08:12 Pantoprazole 40 Mg Tablet PO 06/26/25 08:59 40 mg QDAY DARLENE Administration Plan 65 year old male with history of atrial fibrillation, HFpEF (55-60% 02/2025), sick sinus syndrome s/p pacemaker placement, hypertension, Castleman's disease admitted for progressive shortness of breath and COVID-19. #Atrial fibrillation with RVR likely secondary to remdesivir #Heart Failure with preserved EF #Chronic Atrial fibrillation. #Status post pacemaker implantation. #Hypertension. CHADSVASc Score: 2 (2.2%; anual stroke risk) HAS-BLED score: 1 Echo 03/17/25:?Normal LV size Estimated EF 55-60%.? Diastolic function could not be evaluated because of A-fib.? Mild RV enlargement.? Normal RVSP. Moderate MR and moderate TR with trace AI Severe biatrial dilatation.? Dilated IVC.? No pericardial effusion. Moderate aortic valve sclerosis without stenosis. ? Continue metoprolol tartrate 100 mg twice daily ? Continue diltiazem 240 mg daily ? Continue lisinopril 20mg daily ? Continue digoxin 0.125 mg daily ? If needed can give IV diltiazem to slow rate, target heart rate 90-110 bpm ? Continue Eliquis 5mg BID ? Continue Bumex 1mg IV BID, I&O's ? Keep K>4, Mg>2 #COVID_19 #Leukocytosis #Lymphadenopathy #Castleman disease - per primary team Case discussed with my attending Dr. Jimmy Cameron MD PGY-2 Disclaimer: Despite multiple revisions, due to the dictation software being used, the document bellow may not be free of grammatical errors including phonetic/typographic errors. However, this does not deter from our commitment to providing health care in the patient's best interest in mind.
[2025-05-28] MEDS: BUDESONIDE RT 0.5 MG/2 ML NEBU 1 MG INH (18:59)
[2025-05-28] MEDS: guaiFENesin/DM TABLET 1 EACH PO (20:56)
[2025-05-29] VITALS (14 sets, daily range): BP systolic 104–134; BP diastolic 71–93; PULSE 70–118; RESP 16–22; TEMP 36.1–37; O2SAT 92–96; BMI 33.6
--- NOTE | 2025-05-29 04:41 | PC.NURSE ---
[facility]25 from 0200 to 0435.
[2025-05-29 05:46] LABS: Basophils # (Auto) 0.0 Thou/mm3 (0.0-0.2); Basophils % (Auto) 0 % (0-2.5); Eosinophils # (Auto) 0.0 Thou/mm3 (0.0-0.5); Eosinophils % (Auto) 0 % (0-10); Hematocrit 41.9 % (41.0-53.0); Hemoglobin 14.6 g/dL (13.5-16.0); Immature Granulocytes Auto 0.17 Thou/mm3 (0.00-0.00); Lymphocytes # (Auto) 1.4 Thou/mm3 (1.0-4.8); Lymphocytes % (Auto) 9 % (10-50); Mean Corpuscular HGB Conc 34.8 g/dl (31.0-37.0); Mean Corpuscular Hemoglobin 33.6 pg (25.0-35.0); Mean Corpuscular Volume 96 fL (80-100); Monocytes # (Auto) 1.6 Thou/mm3 (0.0-0.8); Monocytes % (Auto) 10 % (0-12); Neutrophils # (Auto) 13.4 Thou/mm3 (1.8-7.7); Neutrophils % (Auto) 80 % (37-80); Nucleated Red Blood Cell # 0.00 Thou/mm3 (0.00-0.00); Nucleated Red Blood Cell % 0 /100 WBC (0); Platelet Count 213 Thou/mm3 (140-440); RDW Standard Deviation 51.7 fL (35.1-43.9); Red Blood Count 4.35 Miln/mm3 (4.50-5.90); White Blood Count 16.6 Thou/mm3 (3.8-10.6)
[2025-05-29 06:37] LABS: Alanine Aminotransferase 8 U/L (10-49); Albumin, Serum 4.0 gm/dL (3.4-4.8); Albumin/Globulin Ratio 1.5 (1.2-2.2); Alkaline Phosphatase 193 U/L (46-116); Anion Gap 15 (7-16); Aspartate Amino Transferase 17 U/L (0-34); BUN/Creatinine Ratio 26 Ratio (12-20); Bilirubin,Total 0.7 mg/dL (0.3-1.2); Blood Urea Nitrogen 23 mg/dL (9-23); Calcium 9.4 mg/dL (8.3-10.6); Calcium (Corrected) 9.4 mg/dL (8.5-10.1); Carbon Dioxide 21.9 mMol/L (20.0-31.0); Chloride 99 mMol/L (98-107); Creatinine (Component) 0.9 mg/dL (0.6-1.3); Estimated Creatinine Clearance 106.2 mL/min (>60); Globulin 2.6 gm/dL (2.3-3.5); Glucose 135 mg/dL (74-106); Magnesium 2.2 mg/dL (1.6-2.6); Osmolality,Calculated 277 (275-295); Potassium 4.5 mMol/L (3.4-5.1); Sodium 136 mMol/L (136-145); Total Protein 6.6 gm/dL (5.7-8.2); eGFR > 60 See Note
[2025-05-29] MEDS: BUDESONIDE RT 0.5 MG/2 ML NEBU 1 MG INH ×2 (07:01→19:17)
[2025-05-29] MEDS: BUMETANIDE INJ 0.25 MG/ML VIAL 4 ML 2 MG IVP (08:46)
[2025-05-29] MEDS: PANTOPRAZOLE 40 MG TABLET PO (08:48)
[2025-05-29] MEDS: METOPROLOL TARTRATE 25 MG TABLET 100 MG PO ×2 (08:48→20:46)
[2025-05-29] MEDS: DIGOXIN 0.125 MG TABLET PO (08:48)
[2025-05-29] MEDS: APIXABAN 2.5 MG TABLET 5 MG PO ×2 (08:48→20:46)
[2025-05-29] MEDS: AZITHROMYCIN INJ 500 MG in SODIUM CHLORIDE 0.9% 250 ML 250 ML 250 MG IV (08:49)
[2025-05-29] MEDS: cefTRIAXone/D5w 1gm IV premix 1 GM/50 ML BAG IV (08:49)
[2025-05-29] MEDS: DILTIAZEM CD 120 MG CAPCR 240 MG PO (11:47)
[2025-05-29] MEDS: guaiFENesin/DM TABLET 1 EACH PO ×2 (11:47→20:46)
--- NOTE | 2025-05-29 14:55 | ESPR_ITS ---
<Statement entered by Moe Washington MD - 06/05/25 07:12> I reviewed above note and agree with findings and plans. I have also personally examined the patient with medicine team and went over assessment and plan with medical team including advertising internship and resident physician. <Statement entered by Mark Torrez MD - 05/29/25 15:05> No acute overnight events. Seen and examined at bedside and patient states that he feels that his shortness of breath is improved compared to yesterday. Also states that fullness in chest has improved with his shortness of breath. At this time we will continue dexamethasone and IV antibiotics and continue to monitor oxygen requirements. Anticipate discharge within next 24 to 48 hours. Cardiology following for A-fib with RVR, appreciate recommendations. ----- Note reviewed and agree with care plan as documented. Please refer to the note below for further details. Plan discussed with attending physician Dr. 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 No acute overnight events. Patient refused taking Bumex last night as it makes him get up multiple times at night. Order was changed to 2 mg daily in morning instead of BID to address patient concern. Patient was seen at bedside today morning. Patient was sitting at the edge of bed, looked alot more comfortable and joyful than yesterday. Patient reports he is feeling better, shortness of breath is improved. Patient was still using supplemental oxygen but oxygen demand decreased to 3.5L from 6L yesterday. Patient notes that he is looking forward to going home. Exam Vital Signs Temp Pulse Resp BP Pulse Ox O2 Del Method O2 Flow Rate 96.9 F 87 20 111/82 93 L Nasal Cannula 3 05/29/25 12:05/29/25 12:05/29/25 12:05/29/25 12:05/29/25 12:00 05/29/25 12:05/29/25 12:00 Narrative Exam General: Patient is fully alert and oriented. In no acute distress as the SOB is improving. Cardio: RRR, no mumurs, gallops or rubs appreciated. Resp: Equal breath sounds bilaterally. No wheezing appreciated, no stridor or rales auscultated. Increased work of breathing. HEENT: Prominent left cervical lymph nodes palpated. PERRLA. Normocephalic/atraumatic MSK/Extremities: No pitting edema in lower extremities bilaterally, dorsalis pedis pulses +2 bilaterally. No signs of cyanosis. No muscle or joint pain with upper and lower extremity range of motion. GI: Abdomen soft in all quadrant. No signs of distension. No tenderness to palpation. Neuro: AAOx3, no focal motor or sensory deficits in the UE or LE bilat Psych: Good judgement, thought and behavior. Cooperative Objective Labs 05/29/25 05:16 05/29/25 05:16 Labs: Laboratory Results - last 24 hr 05/29/25 05:16 WBC 16.6 H RBC 4.35 L Hgb 14.6 Hct 41.9 MCV 96 MCH 33.6 MCHC 34.8 RDW Std Deviation 51.7 H Plt Count 213 Neut % (Auto) 80 Lymph % (Auto) 9 L [place] % (Auto) 10 Eos % (Auto) 0 Baso % (Auto) 0 Neut # (Auto) 13.4 H Lymph # (Auto) 1.4 [place] # (Auto) 1.6 H Eos # (Auto) 0.0 Baso # (Auto) 0.0 Immature Gran # (Auto) 0.17 H Absolute Nucleated RBC 0.00 Immature Gran % 1 H Nucleated RBC % 0 Sodium 136 Potassium 4.5 Chloride 99 Carbon Dioxide 21.9 Anion Gap 15 BUN 23 Creatinine 0.9 Estim Creat Clear Calc 106.2 eGFR > 60 BUN/Creatinine Ratio 26 H Glucose 135 H Calculated Osmolality 277 Calcium 9.4 Corrected Calcium 9.4 Magnesium 2.2 Total Bilirubin 0.7 AST 17 ALT 8 L Alkaline Phosphatase 193 H Total Protein 6.6 Albumin 4.0 Globulin 2.6 Albumin/Globulin Ratio 1.5 ABG Interpretation ABG results: 05/26/25 17:00 ABG pH 7.43 ABG pCO2 33 ABG pO2 66 L ABG HCO3 22 ABG O2 Saturation 94 ABG Base Excess -1 Quality Measures Quality Measures none Advance care planning discussed with:: patient Assessment & Plan Assessment Current Active Medications: Generic Name Dose Route Start Last Admin Trade Name Freq PRN Reason Stop Dose Admin Acetaminophen 650 mg 05/26/25 18:15 Acetaminophen 325 Mg Tablet PO 06/25/25 18:14 Q6H PRN PAIN 1-3 OR FEVER > 100.4 Hydrocodone Bitart/Acetaminophen 1 tab 05/26/25 18:20 05/27/25 20:30 Hydrocodone/Apap 5/325 Tablet PO 05/31/25 18:19 1 tab Q6HR PRN Administration PAIN SCALE 4-6 (Moderate Apixaban 5 mg 05/26/25 21:00 05/29/25 08:48 Apixaban 2.5 Mg Tablet PO 06/25/25 20:59 5 mg BID DARLENE Administration Budesonide 1 mg 05/28/25 11:00 05/29/25 07:01 Budesonide Rt 0.5 Mg/2 Ml Nebu INH 06/27/25 10:59 1 mg BIDRT DARLENE Administration Bumetanide 2 mg 05/29/25 09:00 05/29/25 08:46 Bumetanide Inj 0.25 Mg/Ml Vial 4 Ml IVP 06/28/25 08:59 2 mg DAILY DARLENE Administration Dexamethasone 6 mg 05/27/25 12:30 05/29/25 08:47 Dexamethasone 4 Mg Tablet PO 06/04/25 09:01 6 mg QDAY DARLENE Administration Digoxin 0.125 mg 05/27/25 05:45 05/29/25 08:48 Digoxin 0.125 Mg Tablet PO 06/26/25 05:44 0.125 mg DAILY DARLENE Administration Diltiazem HCl 240 mg 05/27/25 11:20 05/29/25 11:47 Diltiazem Cd 120 Mg Capcr PO 06/26/25 11:19 240 mg Q24H DARLNEE Administration Guaifenesin/Dextromethorphan 1 each 05/28/25 21:00 05/29/25 11:47 Guaifenesin/Dm Tablet PO 06/27/25 20:59 1 each BID DARLENE Administration Ceftriaxone Sodium/Dextrose 1 gm in 50 mls @ 100 mls/hr 05/27/25 11:18 05/29/25 08:49 Rocephin/D5w 1gm Iv Premix IV 06/03/25 11:17 100 mls/hr QDAY DARLENE Administration Azithromycin 500 mg/ Sodium 250 mls @ 250 mls/hr 05/27/25 11:18 05/29/25 08:49 Chloride IV 06/03/25 11:17 250 mls/hr QDAY DARLENE Administration Metoprolol Tartrate 100 mg 05/26/25 21:00 05/29/25 08:48 Metoprolol Tartrate 25 Mg Tablet PO 06/25/25 20:59 100 mg Q12H DARLENE Administration Ondansetron HCl 4 mg 05/26/25 18:20 Ondansetron Inj 2 Mg/Ml Inj 2 Ml IVP 06/25/25 18:19 Q6H PRN NAUSEA OR VOMITING Protocol Pantoprazole Sodium 40 mg 05/27/25 09:00 05/29/25 08:48 Pantoprazole 40 Mg Tablet PO 06/26/25 08:59 40 mg QDAY DARLENE Administration Plan 65 year old male with history of atrial fibrillation, HFpEF (55-60% 02/2025), sick sinus syndrome s/p pacemaker placement, hypertension, Castleman's disease admitted acute hypoxic respiratory failure secondary to covid 19. #COVID_19 #Leukocytosis- improving 3-day history of shortness of breath, requiring 3.5L via [place] (was 6L yesterday). had flu like symptoms at home. Positive COVID-19 test at ED Improved shortness of breath, patient sitting and breathing comfortably at the edge of the bed on 3.5L supplemental O2. WBC 16.6 (previously 19.8 and 22.1, trending down), procalcitonin negative. 4C mortality score of 7, 9.1-9.9% In-hospital mortality Plan: - methylprednisolone switched to Dexamethasone 6 mg PO Qday - Remdesivir discontinued as per Dr. Marquez, could have triggered Afib. It was initially used as it is a class 1B FDA approved for hospitalized patients with Covid 19 requiring supplemental oxygen. - No Duoneb breathing therapy at this moment as per cardiology, likely to worsen HR. - 2mg Bumex daily in morning changed from 1mg BID as patient doesnt like to keep waking at night. - Budesenide 2 mg IV daily - Mucinex PO BID - Chest x-ray ordered- showing worsening infilterate - Patient in airborne precautions - Ceftriaxone 1g Qday IV - Azithromycin 500 mg Qday IV - Nursing orders to increase mobility and ambulation PRN, and check ambulatory O2. - Spirometer ordered - PT and chest phsio therapy ordered. - Cont to monitor daily CBC and CMP #Atrial fibrillation with RVR #Heart failure with preserved ejection fraction, EF 60 to 65%, November 2023, diastolic heart failure #Status post pacemaker, history of sick sinus syndrome CHADSVASc Score: 2 (2.2% stroke risk) HAS-BLED score: 1 Patient endorsing palpitations and came to the ED with A-fib RVR rate~120s-130s EKG in ED showed atrial fibrillation with rapid ventricular response, HR 110, down from 130 at presentation. ECHO 03/17/25:? Normal LV size Estimated EF 55-60%.? Diastolic function could not be evaluated because of A-fib.? Mild RV enlargement.? Normal RVSP. Moderate MR and moderate TR with trace AI Severe biatrial dilatation.? Dilated IVC.? No pericardial effusion. Moderate aortic valve sclerosis without stenosis. Patient sees Dr. Kervin Marquez for Afib and has home medications: Eliquis 5mg PO BID, Digoxin 125mcg PO QD, Diltiazem Hcl 240mg Qday, Metoprolol 100mg PO Q12H Plan ? Cardiology (Dr. Kervin Marquez) on board. - Continue home dose digoxin 0.125 mg daily ? Continue home Eliquis 5 mg BID - Cont Diltiazem 240 mg QD - Cont Metoprolol 100 mg Q12H - HR goal of 90-110 - Magnesium repleted ? Keep K>4, Mg>2 ? Telemetry ? I's and O's #Lymphadenopathy #Castleman disease Patient has been worked up outpatient with [facility] for extensive lymphadenopathy, reported that he was ruled out for cancer.? On medication review patient was prescribed medications under diagnosis of Castleman disease by Dr. Venancio Gil heme-oncologist and [facility] Neck supraclavicular lymphadenopathy onset 03/15/2025. 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 Patient being managed by [facility] heme oncologist Dr. Venancio Gil. Health Maintenance: Code Status: Full DVT Prophylaxis: SCDs, Eliquis GI Prophylaxis: Protonix Diet: Cardiac diet, limit fluids to 2L [place]: None Lines: PIV Supplemental O2: Nasal [place] 3.5L Disposition: Currently in Telemetry, will be discharged to home, likely tomorrow Patient seen and care discussed with my attending physician, Dr. Washington and my senior residents, Dr. Rao, and Dr. Javon Sales, OMS-IV
--- NOTE | 2025-05-29 20:07 | ESPR_ITS ---
<Statement entered by Kervin Marquez MD - 05/31/25 16:35> I personally examined evaluated this patient with PGY 2 Dr. Cameron evaluated the patient examined the patient appears to be clinically stable still has A-fib RVR requiring IV diltiazem boluses will continue to monitor the patient closely if he develops shortness of breath will use IV diuretics as necessary evaluated patient with resident physician and agree with treatment plan recommendation as documented Documentation for date of: 05/29/25 Subjective Subjective Interval history: Patient seen today at the bedside found awake, alert, orientedx3. No overnight events reported. Vitals and labs reviewed. Still with her heart rate around 110s which is acceptable at this time. As goal heart rate is 90?110 can continue with current management if heart rate continues to increase can give IV diltiazem boluses as necessary. Exam Vital Signs Temp Pulse Resp BP Pulse Ox O2 Del Method O2 Flow Rate 97.1 F 80 19 116/90 H 96 Nasal Cannula 3 05/29/25 16:00 05/29/25 19:17 05/29/25 19:17 05/29/25 16:00 05/29/25 19:17 05/29/25 16:00 05/29/25 19:17 Narrative Exam GENERAL: NAD, AAOx3 HEENT: Moist mucosa. Eyes open, symmetrical, & clear CARDIO: Heart irregularly irregular, no obvious murmurs PULM: some dyspnea CTA B/L, no R/W/R GI: Abdomen soft, nondistended, no pain on palpation. BSx4 SKIN/MSK/EXT: B/L lower extremity livedo retiularis, also some peripheral edema noted, no pain on palpation. Pedal pulses present B/L NEURO: AAOx3, no focal neuro deficits, able to move all 4 extremities Objective Labs 05/29/25 05:16 05/29/25 05:16 Labs: Laboratory Results - last 24 hr 05/29/25 05:16 WBC 16.6 H RBC 4.35 L Hgb 14.6 Hct 41.9 MCV 96 MCH 33.6 MCHC 34.8 RDW Std Deviation 51.7 H Plt Count 213 Neut % (Auto) 80 Lymph % (Auto) 9 L [place] % (Auto) 10 Eos % (Auto) 0 Baso % (Auto) 0 Neut # (Auto) 13.4 H Lymph # (Auto) 1.4 [place] # (Auto) 1.6 H Eos # (Auto) 0.0 Baso # (Auto) 0.0 Immature Gran # (Auto) 0.17 H Absolute Nucleated RBC 0.00 Immature Gran % 1 H Nucleated RBC % 0 Sodium 136 Potassium 4.5 Chloride 99 Carbon Dioxide 21.9 Anion Gap 15 BUN 23 Creatinine 0.9 Estim Creat Clear Calc 106.2 eGFR > 60 BUN/Creatinine Ratio 26 H Glucose 135 H Calculated Osmolality 277 Calcium 9.4 Corrected Calcium 9.4 Magnesium 2.2 Total Bilirubin 0.7 AST 17 ALT 8 L Alkaline Phosphatase 193 H Total Protein 6.6 Albumin 4.0 Globulin 2.6 Albumin/Globulin Ratio 1.5 ABG Interpretation ABG results: 05/26/25 17:00 ABG pH 7.43 ABG pCO2 33 ABG pO2 66 L ABG HCO3 22 ABG O2 Saturation 94 ABG Base Excess -1 Quality Measures Quality Measures none Advance care planning discussed with:: patient Assessment & Plan Assessment Current Active Medications: Generic Name Dose Route Start Last Admin Trade Name Freq PRN Reason Stop Dose Admin Acetaminophen 650 mg 05/26/25 18:15 Acetaminophen 325 Mg Tablet PO 06/25/25 18:14 Q6H PRN PAIN 1-3 OR FEVER > 100.4 Hydrocodone Bitart/Acetaminophen 1 tab 05/26/25 18:20 05/27/25 20:30 Hydrocodone/Apap 5/325 Tablet PO 05/31/25 18:19 1 tab Q6HR PRN Administration PAIN SCALE 4-6 (Moderate Apixaban 5 mg 05/26/25 21:00 05/29/25 08:48 Apixaban 2.5 Mg Tablet PO 06/25/25 20:59 5 mg BID DARLENE Administration Budesonide 1 mg 05/28/25 11:00 05/29/25 19:17 Budesonide Rt 0.5 Mg/2 Ml Nebu INH 06/27/25 10:59 1 mg BIDRT DARLENE Administration Bumetanide 2 mg 05/29/25 09:00 05/29/25 08:46 Bumetanide Inj 0.25 Mg/Ml Vial 4 Ml IVP 06/28/25 08:59 2 mg DAILY DARLENE Administration Dexamethasone 6 mg 05/27/25 12:30 05/29/25 08:47 Dexamethasone 4 Mg Tablet PO 06/04/25 09:01 6 mg QDAY DARLENE Administration Digoxin 0.125 mg 05/27/25 05:45 05/29/25 08:48 Digoxin 0.125 Mg Tablet PO 06/26/25 05:44 0.125 mg DAILY DARLENE Administration Diltiazem HCl 240 mg 05/27/25 11:20 05/29/25 11:47 Diltiazem Cd 120 Mg Capcr PO 06/26/25 11:19 240 mg Q24H DARLENE Administration Guaifenesin/Dextromethorphan 1 each 05/28/25 21:00 05/29/25 11:47 Guaifenesin/Dm Tablet PO 06/27/25 20:59 1 each BID DARLENE Administration Ceftriaxone Sodium/Dextrose 1 gm in 50 mls @ 100 mls/hr 05/27/25 11:18 05/29/25 08:49 Rocephin/D5w 1gm Iv Premix IV 06/03/25 11:17 100 mls/hr QDAY DARLENE Administration Azithromycin 500 mg/ Sodium 250 mls @ 250 mls/hr 05/27/25 11:18 05/29/25 08:49 Chloride IV 06/03/25 11:17 250 mls/hr QDAY DARLENE Administration Metoprolol Tartrate 100 mg 05/26/25 21:00 05/29/25 08:48 Metoprolol Tartrate 25 Mg Tablet PO 06/25/25 20:59 100 mg Q12H DARLENE Administration Ondansetron HCl 4 mg 05/26/25 18:20 Ondansetron Inj 2 Mg/Ml Inj 2 Ml IVP 06/25/25 18:19 Q6H PRN NAUSEA OR VOMITING Protocol Pantoprazole Sodium 40 mg 05/27/25 09:00 05/29/25 08:48 Pantoprazole 40 Mg Tablet PO 06/26/25 08:59 40 mg QDAY DARLENE Administration Plan 65 year old male with history of atrial fibrillation, HFpEF (55-60% 02/2025), sick sinus syndrome s/p pacemaker placement, hypertension, Castleman's disease admitted for progressive shortness of breath and COVID-19. #Atrial fibrillation with RVR likely secondary to remdesivir #Heart Failure with preserved EF #Chronic Atrial fibrillation. #Status post pacemaker implantation. #Hypertension. CHADSVASc Score: 2 (2.2%; anual stroke risk) HAS-BLED score: 1 Echo 03/17/25:?Normal LV size Estimated EF 55-60%.? Diastolic function could not be evaluated because of A-fib.? Mild RV enlargement.? Normal RVSP. Moderate MR and moderate TR with trace AI Severe biatrial dilatation.? Dilated IVC.? No pericardial effusion. Moderate aortic valve sclerosis without stenosis. ? Continue metoprolol tartrate 100 mg twice daily ? Continue diltiazem 240 mg daily ? Continue lisinopril 20mg daily ? Continue digoxin 0.125 mg daily ? If needed can give IV diltiazem 10mg boluses to slow rate, target heart rate 90-110 bpm ? Continue Eliquis 5mg BID ? Continue Bumex 1mg IV BID, I&O's ? Keep K>4, Mg>2 #COVID_19 #Leukocytosis #Lymphadenopathy #Castleman disease - per primary team Case discussed with my attending Dr. Jimmy Cameron MD PGY-2 Disclaimer: Despite multiple revisions, due to the dictation software being used, the document bellow may not be free of grammatical errors including phonetic/typographic errors. However, this does not deter from our commitment to providing health care in the patient's best interest in mind.
[2025-05-30] VITALS (9 sets, daily range): BP systolic 112–134; BP diastolic 59–94; PULSE 73–91; RESP 16–23; TEMP 35.9–36.2; O2SAT 92–97; BMI 32.5
[2025-05-30] MEDS: HYDROcodone/APAP 5/325 TABLET 1 TAB PO (03:00)
[2025-05-30 06:14] LABS: Basophils # (Auto) 0.0 Thou/mm3 (0.0-0.2); Basophils % (Auto) 0 % (0-2.5); Eosinophils # (Auto) 0.0 Thou/mm3 (0.0-0.5); Eosinophils % (Auto) 0 % (0-10); Hematocrit 42.0 % (41.0-53.0); Hemoglobin 14.3 g/dL (13.5-16.0); Immature Granulocytes Auto 0.18 Thou/mm3 (0.00-0.00); Lymphocytes # (Auto) 1.7 Thou/mm3 (1.0-4.8); Lymphocytes % (Auto) 10 % (10-50); Mean Corpuscular HGB Conc 34.0 g/dl (31.0-37.0); Mean Corpuscular Hemoglobin 33.3 pg (25.0-35.0); Mean Corpuscular Volume 98 fL (80-100); Monocytes # (Auto) 1.8 Thou/mm3 (0.0-0.8); Monocytes % (Auto) 10 % (0-12); Neutrophils # (Auto) 13.1 Thou/mm3 (1.8-7.7); Neutrophils % (Auto) 78 % (37-80); Nucleated Red Blood Cell # 0.00 Thou/mm3 (0.00-0.00); Nucleated Red Blood Cell % 0 /100 WBC (0); Platelet Count 211 Thou/mm3 (140-440); RDW Standard Deviation 52.4 fL (35.1-43.9); Red Blood Count 4.29 Miln/mm3 (4.50-5.90); White Blood Count 16.8 Thou/mm3 (3.8-10.6)
[2025-05-30] MEDS: BUDESONIDE RT 0.5 MG/2 ML NEBU 1 MG INH (06:54)
[2025-05-30 06:58] LABS: Alanine Aminotransferase 10 U/L (10-49); Albumin, Serum 4.0 gm/dL (3.4-4.8); Albumin/Globulin Ratio 1.4 (1.2-2.2); Alkaline Phosphatase 184 U/L (46-116); Anion Gap 11 (7-16); Aspartate Amino Transferase < 10 U/L (0-34); BUN/Creatinine Ratio 19 Ratio (12-20); Bilirubin,Total 0.7 mg/dL (0.3-1.2); Blood Urea Nitrogen 19 mg/dL (9-23); Calcium 9.8 mg/dL (8.3-10.6); Calcium (Corrected) 9.8 mg/dL (8.5-10.1); Carbon Dioxide 27.2 mMol/L (20.0-31.0); Chloride 99 mMol/L (98-107); Creatinine (Component) 1.0 mg/dL (0.6-1.3); Estimated Creatinine Clearance 94.1 mL/min (>60); Globulin 2.8 gm/dL (2.3-3.5); Glucose 137 mg/dL (74-106); Magnesium 2.1 mg/dL (1.6-2.6); Osmolality,Calculated 278 (275-295); Phosphorous 3.6 mg/dL (2.4-5.1); Potassium 4.3 mMol/L (3.4-5.1); Sodium 137 mMol/L (136-145); Total Protein 6.8 gm/dL (5.7-8.2); eGFR > 60 See Note
[2025-05-30] MEDS: METOPROLOL TARTRATE 25 MG TABLET 100 MG PO (09:22)
[2025-05-30] MEDS: APIXABAN 2.5 MG TABLET 5 MG PO (09:23)
[2025-05-30] MEDS: PANTOPRAZOLE 40 MG TABLET PO (09:23)
[2025-05-30] MEDS: DIGOXIN 0.125 MG TABLET PO (09:24)
[2025-05-30] MEDS: BUMETANIDE INJ 0.25 MG/ML VIAL 4 ML 2 MG IVP (09:25)
[2025-05-30] MEDS: cefTRIAXone/D5w 1gm IV premix 1 GM/50 ML BAG IV (09:25)
--- NOTE | 2025-05-30 09:41 | ESDS_ITS ---
<Statement entered by Moe Washington MD - 06/05/25 07:13> I reviewed above note and agree with findings and plans. I have also personally examined the patient with medicine team and went over assessment and plan with medical team including international flight attendant and resident physician. <Statement entered by Surya Rao MD - 05/30/25 14:21> Patient was examined with the team including attending physician. Note reviewed, I agree with the discharge plan as documented. - Surya Rao MD PGY 3 Disclaimer: The document may contain phonetic/typographic errors due to voice recognition software. Planned Discharge Date 05/30/25 DS: Providers Provider Date of admission: 05/26/25 18:10 Primary care physician: Miki Broussard Admitting Provider: Guzman Flor MD Attending Provider on Admission: Moe Washington MD Consults: 05/27/25 08:09 Consult to Cardiology Routine Comment: Afib Consulting Provider: Kervin Marquez 05/28/25 08:45 Referral Physical Therapy Routine Comment: Physician Instructions: Attending Provider on DC: Bud Jurado Discharging Provider: Bud Jurado DS: Diagnosis Problem List Completed Was Problem List Reviewed/Reconciled?: Yes Hospital Course Hospital Course Hospital course: Albaro Pena with PMH of Afib, HFpEF, sick sinus syndrome status post pacemaker, 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 In the ED patient was found to have shortness of breath with remarkable vitals of 100.4 F, HR 129, RR 22, BP 152/82, O2 94 on room air. Patient was admitted for worsening respiratory failure secondary to Covid 19. Initial treatment included Remdesivir (discontinued due to Afib) and Dexmethason 6 mg PO Qday. Stay was complicated with Afib episode with RVR HR of 137. Dr. Marquez (cardiology) was consulted. Afib was managed with home meds Digoxin (0.125 mg Qday), Eliquis (5 mg BID), Diltiazem (240 mg QD), Metoprolol 100 mg (Q12H). Patient was also given 2 mg Bumex to manage fluid overload. Patient is now stable on room air. To be discharged and followed with PCP and Cardiology in 1 week. Problem List: #Respiratory failure secondary to COVID_19 #Leukocytosis #Atrial fibrillation with RVR #Heart failure with preserved ejection fraction #Status post pacemaker, history of sick sinus syndrome #Lymphadenopathy #Castleman disease Discharge instructions: - Follow up with PCP within 1 week - Follow up with Cardio Dr Marquez after discharge. - Your Digoxin dose has been reduced to 0.125mg daily - You have been started on Bumex 1mg daily as per Cardiology recommendations - Continue all other home medications as before - Return to ED if symptoms worsen Discharge summary was reviewed with my attending Dr. Washington and my senior resident Dr. Rao. Yamilka Sales, OMS IV Dr. Rao, PGY-3 Time Spent with Patient Time attestation: Total time spent providing and/or coordinating discharge services: Time spent: Greater than 30 minutes Exam Vital Signs Temp Pulse Resp BP Pulse Ox O2 Del Method O2 Flow Rate 97.2 F 89 19 134/94 H 93 L Nasal Cannula 1 05/30/25 08:00 05/30/25 09:25 05/30/25 08:00 05/30/25 09:25 05/30/25 08:00 05/30/25 08:00 05/30/25 08:00 Narrative Exam General: Patient is fully alert and oriented. In no acute distress as the SOB has improved. Cardio: RRR, no mumurs, gallops or rubs appreciated. Resp: Equal breath sounds bilaterally. No wheezing appreciated, no stridor or rales auscultated. Normal work of breathing. No shortness of breath on laying flat. HEENT: Prominent left cervical lymph nodes palpated. PERRLA. Normocephalic/atraumatic MSK/Extremities: No pitting edema in lower extremities bilaterally, dorsalis pedis pulses +2 bilaterally. No signs of cyanosis. No muscle or joint pain with upper and lower extremity range of motion. GI: Abdomen soft in all quadrant. No signs of distension. No tenderness to palpation. Neuro: AAOx3, no focal motor or sensory deficits in the UE or LE bilat Psych: Good judgement, thought and behavior. Cooperative Discharge Plan Plan Patient Disposition: HOME (Self Care) Patient condition on transfer: Stable Care Plan Goals: - Follow up with PCP within 1 week - Use oxygen as needed until shortness of breath resolves. Keep goal saturation >94% - Your Digoxin dose has been reduced to 0.125mg daily - You have been started on Bumex 1mg daily as per Cardiology recommendations - Follow up with Cardio Dr Marquez after discharge. - Continue all other home medications as before - Return to ED if symptoms worsen Prescriptions/Referrals Prescriptions/Med Rec: New bumetanide 1 mg tablet 1 mg PO QDAY 30 Days Qty: 30 1RF Continued metoprolol tartrate 100 mg tablet 100 mg PO Q12H Patient Comments: TAKE 1 TABLET BY MOUTH TWICE DAILY WITH FOOD digoxin 125 mcg (0.125 mg) tablet 0.125 mg PO DAILY Patient Comments: TAKE 1 TABLET BY MOUTH ONCE DAILY FOR 90 DAYS diltiazem HCl 240 mg capsule,extended release 24 hr 240 mg PO Q24H Patient Comments: TAKE 1 CAPSULE BY MOUTH ONCE DAILY methotrexate sodium 2.5 mg tablet 15 mg PO .Q WEEKLY Patient Comments: TAKE 6 TABLETS BY MOUTH ONCE A WEEK ALL AT ONCE benzonatate 100 mg capsule 100 mg PO TID PRN (Reason: cough) Patient Comments: TAKE 1 CAPSULE BY MOUTH THREE TIMES DAILY NEEDED albuterol sulfate 90 mcg/actuation HFA aerosol inhaler 2 puff INHALATION Q4H PRN (Reason: shortness of breath or wheezing) Patient Comments: INHALE 2 PUFFS BY MOUTH EVERY 4 TO 6 HOURS FOR SHORTNESS OF BREATH methylprednisolone 4 mg tablet 4 mg PO QDAY Patient Comments: TAKE 1 TABLET BY MOUTH ONCE DAILY NEEDED Eliquis 5 mg Tablet 5 mg PO BID lisinopril 20 mg tablet 20 mg PO DAILY Patient Comments: TAKE 1 TABLET BY MOUTH ONCE DAILY allopurinol 300 mg tablet 300 mg PO DAILY Patient Comments: TAKE 1 TABLET BY MOUTH ONCE DAILY Discontinued doxycycline monohydrate 100 mg capsule 100 mg PO Q12H Patient Comments: TAKE 1 CAPSULE BY MOUTH TWICE DAILY digoxin 250 mcg (0.25 mg) tablet 250 mcg PO QDAY Qty: 30 0RF Referrals: Miki Broussard [Primary Care Provider] Patient/Caregiver Discharge Instructions Discharge Activity: resume usual activities Education Materials: Chest and Lung Problems, Identifying Your Heart Risks Print Language: Yemeni Stand Alone Forms: Marivel Award Info., Patient Portal Info Letter Discharge Order Discharge Orders: Discharge (Routine); Ordered 05/30/25 Ordered By: Surya Rao Quality Discharge Quality Measures VTE prophylaxis
[2025-05-30] MEDS: AZITHROMYCIN INJ 500 MG in SODIUM CHLORIDE 0.9% 250 ML 250 ML 250 MG IV (10:13)
[2025-05-30] MEDS: guaiFENesin/DM TABLET 1 EACH PO (10:16)
--- NOTE | 2025-05-30 10:30 | ESPR_ITS ---
<Statement entered by Kervin Marquez MD - 05/31/25 16:34> I personally examined the patient and evaluated the patient with resident physician PGY 2 Dr. Cameron I evaluated the patient with him appears to be doing much better A-fib still going slightly faster will continue with rate control strategy with combination of beta-vickie metoprolol succinate diltiazem and digoxin. Agree with IV diuretic therapy for shortness of breath heart failure symptoms patient appears to have HFpEF. Will continue to monitor the patient evaluated patient with resident physician agree with the treatment treatment plan recommendation as documented by Dr. Cameron Documentation for date of: 05/30/25 Subjective Subjective Interval history: Patient seen today at the bedside found awake, alert, orientedx3. No overnight events reported. Vitals and labs reviewed. No active complaints at this time denies chest pain, shortness of breath, PND, orthopnea. Patient is chronically on atrial fibrillation however rate controlled at this time with current rate around the 80s. Can continue with current medical management and anticoagulation. Overall patient is clinically improving. Exam Vital Signs Temp Pulse Resp BP Pulse Ox O2 Del Method O2 Flow Rate 97.2 F 89 19 134/94 H 93 L Nasal Cannula 1 05/30/25 08:00 05/30/25 09:25 05/30/25 08:00 05/30/25 09:25 05/30/25 08:00 05/30/25 08:00 05/30/25 08:00 Narrative Exam GENERAL: NAD, AAOx3 HEENT: Moist mucosa. Eyes open, symmetrical, & clear CARDIO: Heart irregularly irregular, no obvious murmurs PULM: some dyspnea CTA B/L, no R/W/R GI: Abdomen soft, nondistended, no pain on palpation. BSx4 SKIN/MSK/EXT: B/L lower extremity livedo retiularis, also some peripheral edema noted, no pain on palpation. Pedal pulses present B/L NEURO: AAOx3, no focal neuro deficits, able to move all 4 extremities Objective Labs 05/30/25 05:54 05/30/25 05:54 Labs: Laboratory Results - last 24 hr 05/30/25 05:54 WBC 16.8 H RBC 4.29 L Hgb 14.3 Hct 42.0 MCV 98 MCH 33.3 MCHC 34.0 RDW Std Deviation 52.4 H Plt Count 211 Neut % (Auto) 78 Lymph % (Auto) 10 [place] % (Auto) 10 Eos % (Auto) 0 Baso % (Auto) 0 Neut # (Auto) 13.1 H Lymph # (Auto) 1.7 [place] # (Auto) 1.8 H Eos # (Auto) 0.0 Baso # (Auto) 0.0 Immature Gran # (Auto) 0.18 H Absolute Nucleated RBC 0.00 Immature Gran % 1 H Nucleated RBC % 0 Sodium 137 Potassium 4.3 Chloride 99 Carbon Dioxide 27.2 Anion Gap 11 BUN 19 Creatinine 1.0 Estim Creat Clear Calc 94.1 eGFR > 60 BUN/Creatinine Ratio 19 Glucose 137 H Calculated Osmolality 278 Calcium 9.8 Corrected Calcium 9.8 Phosphorus 3.6 Magnesium 2.1 Total Bilirubin 0.7 AST < 10 ALT 10 Alkaline Phosphatase 184 H Total Protein 6.8 Albumin 4.0 Globulin 2.8 Albumin/Globulin Ratio 1.4 ABG Interpretation ABG results: 05/26/25 17:00 ABG pH 7.43 ABG pCO2 33 ABG pO2 66 L ABG HCO3 22 ABG O2 Saturation 94 ABG Base Excess -1 Quality Measures Quality Measures none Advance care planning discussed with:: patient Assessment & Plan Assessment Current Active Medications: Generic Name Dose Route Start Last Admin Trade Name Freq PRN Reason Stop Dose Admin Acetaminophen 650 mg 05/26/25 18:15 Acetaminophen 325 Mg Tablet PO 06/25/25 18:14 Q6H PRN PAIN 1-3 OR FEVER > 100.4 Hydrocodone Bitart/Acetaminophen 1 tab 05/26/25 18:20 05/30/25 03:00 Hydrocodone/Apap 5/325 Tablet PO 05/31/25 18:19 1 tab Q6HR PRN Administration PAIN SCALE 4-6 (Moderate Apixaban 5 mg 05/26/25 21:00 05/30/25 09:23 Apixaban 2.5 Mg Tablet PO 06/25/25 20:59 5 mg BID DARLENE Administration Budesonide 1 mg 05/28/25 11:00 05/30/25 06:54 Budesonide Rt 0.5 Mg/2 Ml Nebu INH 06/27/25 10:59 1 mg BIDRT DARLENE Administration Bumetanide 2 mg 05/29/25 09:00 05/30/25 09:25 Bumetanide Inj 0.25 Mg/Ml Vial 4 Ml IVP 06/28/25 08:59 2 mg DAILY DARLENE Administration Dexamethasone 6 mg 05/27/25 12:30 05/30/25 09:23 Dexamethasone 4 Mg Tablet PO 06/04/25 09:01 6 mg QDAY DARLENE Administration Digoxin 0.125 mg 05/27/25 05:45 05/30/25 09:24 Digoxin 0.125 Mg Tablet PO 06/26/25 05:44 0.125 mg DAILY DARLENE Administration Diltiazem HCl 240 mg 05/27/25 11:20 05/29/25 11:47 Diltiazem Cd 120 Mg Capcr PO 06/26/25 11:19 240 mg Q24H DARLENE Administration Guaifenesin/Dextromethorphan 1 each 05/28/25 21:00 05/30/25 10:16 Guaifenesin/Dm Tablet PO 06/27/25 20:59 1 each BID DARLENE Administration Ceftriaxone Sodium/Dextrose 1 gm in 50 mls @ 100 mls/hr 05/27/25 11:18 05/30/25 09:25 Rocephin/D5w 1gm Iv Premix IV 06/03/25 11:17 100 mls/hr QDAY DARLENE Administration Azithromycin 500 mg/ Sodium 250 mls @ 250 mls/hr 05/27/25 11:18 05/30/25 10:13 Chloride IV 06/03/25 11:17 250 mls/hr QDAY DARLENE Administration Metoprolol Tartrate 100 mg 05/26/25 21:00 05/30/25 09:22 Metoprolol Tartrate 25 Mg Tablet PO 06/25/25 20:59 100 mg Q12H DARLENE Administration Ondansetron HCl 4 mg 05/26/25 18:20 Ondansetron Inj 2 Mg/Ml Inj 2 Ml IVP 06/25/25 18:19 Q6H PRN NAUSEA OR VOMITING Protocol Pantoprazole Sodium 40 mg 05/27/25 09:00 05/30/25 09:23 Pantoprazole 40 Mg Tablet PO 06/26/25 08:59 40 mg QDAY DARLENE Administration Plan 65 year old male with history of atrial fibrillation, HFpEF (55-60% 02/2025), sick sinus syndrome s/p pacemaker placement, hypertension, Castleman's disease admitted for progressive shortness of breath and COVID-19. #Atrial fibrillation with RVR likely secondary to remdesivir?improving #Heart Failure with preserved EF #Chronic Atrial fibrillation. #Status post pacemaker implantation. #Hypertension. CHADSVASc Score: 2 (2.2%; anual stroke risk) HAS-BLED score: 1 Echo 03/17/25:?Normal LV size Estimated EF 55-60%.? Diastolic function could not be evaluated because of A-fib.? Mild RV enlargement.? Normal RVSP. Moderate MR and moderate TR with trace AI Severe biatrial dilatation.? Dilated IVC.? No pericardial effusion. Moderate aortic valve sclerosis without stenosis. ? Continue metoprolol tartrate 100 mg twice daily ? Continue diltiazem 240 mg daily ? Continue lisinopril 20mg daily ? Continue digoxin 0.125 mg daily ? If needed can give IV diltiazem 10mg boluses to slow rate, target heart rate 90-110 bpm ? Continue Eliquis 5mg BID ? Continue Bumex 1mg IV BID, I&O's ? Keep K>4, Mg>2 #COVID_19 #Leukocytosis #Lymphadenopathy #Castleman disease - per primary team Case discussed with my attending Dr. Jimmy Cameron MD PGY-2 Disclaimer: Despite multiple revisions, due to the dictation software being used, the document bellow may not be free of grammatical errors including phonetic/typographic errors. However, this does not deter from our commitment to providing health care in the patient's best interest in mind.
[2025-05-30] MEDS: DILTIAZEM CD 120 MG CAPCR 240 MG PO (12:46)
--- NOTE | 2025-05-30 14:54 | PC.SS ---
follow up note: Patient to d/c home today with . SS inquired about patient needing 02. Floor nurse, ENEDINA Manzanares tested patient on room air and exertion test. Floor nurse states that patient does not need 02 for home. Updated physician team.
== END 2025-05-30 13:25 | disposition home or self-care (01) | DRG 177 ==
LOC: SERX 16:45 → SERHOLD 18:53 → S2NX 21:23
PROVIDERS: Admitting Provider Student in an Organized Health Care Education/Training Program; Emergency Provider Emergency Medicine; PCP Internal Medicine; Visit Provider Internal Medicine
DX: U07.1 COVID-19 (principal); J12.82 Pneumonia due to coronavirus disease 2019; J96.01 Acute respiratory failure with hypoxia; D47.Z2 Castleman disease; I50.32 Chronic diastolic (congestive) heart failure; I48.20 Chronic atrial fibrillation, unspecified; Z95.0 Presence of cardiac pacemaker; I11.0 Hypertensive heart disease with heart failure; M85.80 Other specified disorders of bone density and structure, unspecified site; Z79.01 Long term (current) use of anticoagulants; I35.8 Other nonrheumatic aortic valve disorders; Z79.899 Other long term (current) drug therapy; Z96.659 Presence of unspecified artificial knee joint
CPT/HCPCS: 36415; 36600; 71045; 80053; 80061; 81001; 82803; 83605; 83690; 83735; 83880; 84100; 84145; 84439; 84443; 84484; 85025; 85610; 85730; 87040; 87086; 87205; 87400; 87811; 93005; 94640; 94664; 94667; 94762; 96361; 96365; 96375; 97162; 99284; A9270; J0248; J0456; J0696; J1100; J3475; J3490; J7030; J7050; J7509; J8540

== ENCOUNTER 2025-06-08 13:08 | Inpatient (IN) | payer MEDICARE, SELFPAY ==
[2025-06-08] VITALS (13 sets, daily range): BP systolic 95–137; BP diastolic 26–82; PULSE 89–117; RESP 17–94; TEMP 36.1–37.4; O2SAT 92–98; BMI 32.1
--- NOTE | 2025-06-08 14:37 | XR_ITS ---
Examination: CT abdomen with intravenous contrast CT pelvis with intravenous contrast 2-D coronal reconstructions 2-D sagittal reconstructions Date and time of exam:June 08, 2025, 1609 hrs. Indications: Right buttock redness swelling and pain this week. CTDI: vol (mGy) 11.4 DLP: (mGycm) 728 Technique: Multiple axial sections of the abdomen and pelvis have been obtained. 64 slice high-resolution scanner used. 3 mm axial sections have been obtained, post intravenous injection 60 cc [id number] 2-D sagittal, coronal reconstructions obtained. Low dose protocols were performed. One or more of the following dose reduction techniques were used; automated exposure control, adjustment of the mA and/or KV according to patient size, use of iterative reconstruction technique. Findings: Mild to moderate enlargement cardiac contour. Liver is mildly irregular in contour with fatty infiltration No gallstones. Spleen is not enlarged No pancreatic or adrenal mass Aortic calcification no aneurysmal dilatation Moderate renal scar formation. No bowel obstruction Normal appendix No diverticulitis Normal seminal vesicles AP prostate dimension 3.5 cm Large infectious process with air density in the right perineum which extends to the skin surface of the posterior buttock near the intergluteal fold, axial image 260 The infectious process extends to the base of the scrotum Impression: Large infectious process containing air densities in the right perineum extending from the right posterior buttock region along the entire length of the perineum to the base of the scrotum
[2025-06-08] MEDS: HYDROmorphone INJ 2 MG/ML VIAL IM (14:47)
[2025-06-08] MEDS: ONDANSETRON ODT 4 MG TABRAP PO (14:47)
--- NOTE | 2025-06-08 15:03 | PD.EDSKIN ---
ED Skin Abcess FB-RME/HPI General Chief complaint: Skin/Abscess/Foreign Body Stated complaint: BOIL R) BUTT Time Seen by Provider: 06/08/25 14:24 Arrival date/time: 06/08/25 13:08 RME / HPI RME / HPI narrative: 65-year-old patient brought to emergency department by family with complaint of boil to his right gluteus for the past 3-4 days that he states started to drain a bit today. Patient states pain is worse with palpation of the affected area, ambulation or sitting down. He denies fever, chills,or alan of diabetes. he denies any alleviating factors. Related Data Home Medications ?Medication ?Instructions ?Recorded ?Confirmed apixaban 5 mg tablet (Eliquis) 5 mg PO BID 12/12/23 05/26/25 allopurinol 300 mg tablet 300 mg PO DAILY 03/16/25 05/26/25 lisinopril 20 mg tablet 20 mg PO DAILY 03/16/25 05/26/25 albuterol sulfate 90 mcg/actuation 2 puff inhalation Q4H PRN 05/26/25 05/26/25 aerosol inhaler shortness of breath or wheezing benzonatate 100 mg capsule 100 mg PO TID PRN cough 05/26/25 05/26/25 digoxin 125 mcg (0.125 mg) tablet 0.125 mg PO DAILY 05/26/25 05/26/25 diltiazem HCl 240 mg capsule,24 240 mg PO Q24H 05/26/25 05/26/25 hr,extended release methotrexate sodium 2.5 mg tablet 15 mg PO .Q WEEKLY 05/26/25 05/26/25 methylprednisolone 4 mg tablet 4 mg PO QDAY 05/26/25 05/26/25 metoprolol tartrate 100 mg tablet 100 mg PO Q12H 05/26/25 05/26/25 Previous Rx's ?Medication ?Instructions ?Recorded bumetanide 1 mg tablet 1 mg PO QDAY 1 month #30 tabs 05/30/25 Allergies Allergy/AdvReac Type Severity Reaction Status Date / Time No Known Allergies Allergy Verified 06/08/25 13:10 Course Orders Category Date Time Status CT Screening NOW Care 06/08/25 14:[address] abdomen pelvis w con Stat Exams 06/08/25 14:37 Ordered CBC Stat Lab 06/08/25 14:45 Received CMP [Comprehensive Metabolic Panel] Stat Lab 06/08/25 14:45 Received CRP [C-Reactive Protein] Stat Lab 06/08/25 14:45 Received Lactic Acid [Lactate (Lactic Acid)] Stat Lab 06/08/25 14:45 Results HYDROmorphone INJ [Dilaudid Inj] Med 06/08/25 14:36 Discontinued 2 mg IM X1 ONE Ondansetron Odt [Zofran Odt] Med 06/08/25 14:36 Discontinued 4 mg PO X1 ONE Vital Signs Vital signs: Vital Signs Temperature 98.3 F 06/08/25 13:54 Pulse Rate 101 H 06/08/25 13:54 Respiratory Rate 20 06/08/25 13:54 Blood Pressure 113/75 06/08/25 13:54 Pulse Oximetry (%) 96 06/08/25 13:54 Oxygen Delivery Method Room Air 06/08/25 13:54 Skin / Abscess / Foreign Body Medications / Prescriptions Medication administrations:: Medication Administration History Discontinued Medications Hydromorphone HCl (Hydromorphone Inj 2 Mg/Ml Vial) 2 mg IM X1 ONE Stop: 06/08/25 14:37 Last Admin: 06/08/25 14:47 Dose: 2 mg Documented By: CLEMENTINE Ondansetron HCl (Ondansetron Odt 4 Mg Tabrap) 4 mg PO X1 ONE; Protocol Stop: 06/08/25 14:37 Last Admin: 06/08/25 14:47 Dose: 4 mg Documented By: CLEMENTINE Discharge Plan Prescriptions/Referrals Prescriptions/Med Rec: No Action metoprolol tartrate 100 mg tablet 100 mg PO Q12H Patient Comments: TAKE 1 TABLET BY MOUTH TWICE DAILY WITH FOOD digoxin 125 mcg (0.125 mg) tablet 0.125 mg PO DAILY Patient Comments: TAKE 1 TABLET BY MOUTH ONCE DAILY FOR 90 DAYS diltiazem HCl 240 mg capsule,extended release 24 hr 240 mg PO Q24H Patient Comments: TAKE 1 CAPSULE BY MOUTH ONCE DAILY methotrexate sodium 2.5 mg tablet 15 mg PO .Q WEEKLY Patient Comments: TAKE 6 TABLETS BY MOUTH ONCE A WEEK ALL AT ONCE benzonatate 100 mg capsule 100 mg PO TID PRN (Reason: cough) Patient Comments: TAKE 1 CAPSULE BY MOUTH THREE TIMES DAILY NEEDED albuterol sulfate 90 mcg/actuation HFA aerosol inhaler 2 puff INHALATION Q4H PRN (Reason: shortness of breath or wheezing) Patient Comments: INHALE 2 PUFFS BY MOUTH EVERY 4 TO 6 HOURS FOR SHORTNESS OF BREATH methylprednisolone 4 mg tablet 4 mg PO QDAY Patient Comments: TAKE 1 TABLET BY MOUTH ONCE DAILY NEEDED bumetanide 1 mg tablet 1 mg PO QDAY 30 Days Qty: 30 1RF Eliquis 5 mg Tablet 5 mg PO BID lisinopril 20 mg tablet 20 mg PO DAILY Patient Comments: TAKE 1 TABLET BY MOUTH ONCE DAILY allopurinol 300 mg tablet 300 mg PO DAILY Patient Comments: TAKE 1 TABLET BY MOUTH ONCE DAILY Patient/Caregiver Discharge Instructions Print Language: Cameroonian
[2025-06-08 15:05] LABS: Lactate (Lactic Acid) 4.2 mMol/L (0.4-2.0)
[2025-06-08 15:07] LABS: Basophils # (Auto) 0.2 Thou/mm3 (0.0-0.2); Basophils % (Auto) 1 % (0-2.5); Eosinophils # (Auto) 0.0 Thou/mm3 (0.0-0.5); Eosinophils % (Auto) 0 % (0-10); Hematocrit 50.5 % (41.0-53.0); Hemoglobin 17.0 g/dL (13.5-16.0); Immature Granulocytes Auto 0.58 Thou/mm3 (0.00-0.00); Lymphocytes # (Auto) 1.9 Thou/mm3 (1.0-4.8); Lymphocytes % (Auto) 6 % (10-50); Mean Corpuscular HGB Conc 33.7 g/dl (31.0-37.0); Mean Corpuscular Hemoglobin 33.0 pg (25.0-35.0); Mean Corpuscular Volume 98 fL (80-100); Monocytes # (Auto) 1.8 Thou/mm3 (0.0-0.8); Monocytes % (Auto) 5 % (0-12); Neutrophils # (Auto) 30.0 Thou/mm3 (1.8-7.7); Neutrophils % (Auto) 87 % (37-80); Nucleated Red Blood Cell # 0.00 Thou/mm3 (0.00-0.00); Nucleated Red Blood Cell % 0 /100 WBC (0); Platelet Count 496 Thou/mm3 (140-440); RDW Standard Deviation 52.0 fL (35.1-43.9); Red Blood Count 5.15 Miln/mm3 (4.50-5.90)
--- NOTE | 2025-06-08 15:11 | PD.EDRME ---
Rapid Medical Screening Exam PENDING SALE TO [facility] Arrival date/time: 06/08/25 13:08 65-year-old patient brought to emergency department by family with complaint of boil to his right gluteus for the past 3-4 days that he states started to drain a bit today. Patient states pain is worse with palpation of the affected area, ambulation or sitting down. He denies fever, chills,or alan of diabetes. he denies any alleviating factors. Chief Complaint: Skin/Abscess/Foreign Body Time Seen by Provider: 06/08/25 14:24 Vital signs: Vital Signs Temperature 98.3 F 06/08/25 13:54 Pulse Rate 101 H 06/08/25 13:54 Respiratory Rate 20 06/08/25 13:54 Blood Pressure 113/75 06/08/25 13:54 Pulse Oximetry (%) 96 06/08/25 13:54 Oxygen Delivery Method Room Air 06/08/25 13:54 PENDING SALE TO [facility] Narrative: 65-year-old patient brought to emergency department by family with complaint of boil to his right gluteus for the past 3-4 days that he states started to drain a bit today. Patient states pain is worse with palpation of the affected area, ambulation or sitting down. He denies fever, chills,or alan of diabetes. he denies any alleviating factors.
[2025-06-08 15:14] LABS: White Blood Count 34.5 Thou/mm3 (3.8-10.6)
[2025-06-08 15:20] LABS: Alanine Aminotransferase 32 U/L (10-49); Albumin, Serum 4.5 gm/dL (3.4-4.8); Albumin/Globulin Ratio 1.3 (1.2-2.2); Alkaline Phosphatase 173 U/L (46-116); Anion Gap 14 (7-16); Aspartate Amino Transferase 23 U/L (0-34); BUN/Creatinine Ratio 13 Ratio (12-20); Bilirubin,Total 0.6 mg/dL (0.3-1.2); Blood Urea Nitrogen 18 mg/dL (9-23); C-Reactive Protein 1.0 mg/dL (0.0-0.9); Calcium 10.0 mg/dL (8.3-10.6); Calcium (Corrected) 10.0 mg/dL (8.5-10.1); Carbon Dioxide 21.8 mMol/L (20.0-31.0); Chloride 100 mMol/L (98-107); Creatinine (Component) 1.4 mg/dL (0.6-1.3); Estimated Creatinine Clearance 66.9 mL/min (>60); Globulin 3.5 gm/dL (2.3-3.5); Glucose 146 mg/dL (74-106); Osmolality,Calculated 276 (275-295); Potassium 5.0 mMol/L (3.4-5.1); Sodium 136 mMol/L (136-145); Total Protein 8.0 gm/dL (5.7-8.2); eGFR 55 See Note
--- NOTE | 2025-06-08 16:34 | EKG_ITS ---
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
--- NOTE | 2025-06-08 16:57 | EDNOTE_ITS ---
<Statement entered by Laura Camarena MD - 06/09/25 06:24> I, Laura Camarena MD, have reviewed the history, exam, and assessment of the patient. I have evaluated the patient independently and agree with the plan of care documented by [ ]. All diagnostic studies were reviewed and discussed. I confirm the diagnosis as documented by the Resident. I was present during the Medical Decision Making for this patient. The patient's plan of care was created between myself and the Resident and consistent with our discussion of the patient's case. ED Skin Abcess FB-RME/HPI General Chief complaint: Skin/Abscess/Foreign Body Stated complaint: BOIL R) BUTT Time Seen by Provider: 06/08/25 14:24 Arrival date/time: 06/08/25 13:08 RME / HPI RME / HPI narrative: 65-year-old patient brought to emergency department by family with complaint of boil to his right gluteus for the past 3-4 days that he states started to drain a bit today. Patient states pain is worse with palpation of the affected area, ambulation or sitting down. He denies fever, chills,or alan of diabetes. he denies any alleviating factors. Mr. Pena is a 65-year-old male with past medical history of atrial fibrillation on Eliquis 5 mg twice a day, heart failure with preserved ejection fraction EF 55 to 60% echo 03/14/2025, sick sinus syndrome status post pacemaker (follows Dr. 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 He denies any fevers chills myalgias chest pain shortness of breath headache and palpitations. Patient noted to be tachycardic and with elevated white count sepsis alert called in ED Related Data Home Medications ?Medication ?Instructions ?Recorded ?Confirmed apixaban 5 mg tablet (Eliquis) 5 mg PO BID 12/12/23 allopurinol 300 mg tablet 300 mg PO DAILY 03/16/2510/19 lisinopril 20 mg tablet 20 mg PO DAILY 03/16/2510/19 albuterol sulfate 90 mcg/actuation 2 puff inhalation Q 4H PRN 05/26/25 05/26/25 aerosol inhaler shortness of breath or wheez ing benzonatate 100 mg capsule 100 mg PO TID PRN cough 10/1905/26/25 digoxin 125 mcg (0.125 mg) tablet 0.125 mg PO DAILY 05/26/25 diltiazem HCl 240 mg capsule,24 240 mg PO Q24H 5 05/26/25 hr,extended release methotrexate sodium 2.5 mg tablet 15 mg PO .Q WEEKLY 0 05/26/25 05/26/25 methylprednisolone 4 mg tablet 4 mg PO QDAY 05/26/25 0 05/26/25 metoprolol tartrate 100 mg tablet 100 mg PO Q12H 05/2605/26/25 Previous Rx's ?Medication ?Instructions ?Recorded bumetanide 1 mg tablet 1 mg PO QDAY 1 month #30 tab s 05/30/25 Allergies Allergy/AdvReac Type Severity Reaction Status Date / Time No Known Allergies Allergy Verified 06/08/25 13:10 Review of Systems Review of Systems Systems Reviewed: All systems reviewed, normal except as documented Past Medical History Past Medical History CARDIAC: Positive Cardiac Disorders, Cardiac Arrhythmia, Atrial Fibrillation, Congestive Heart Failure, Congenital Heart Disease, Edema and Hypertension RESPIRATORY: Positive Bronchitis and Pneumonia MUSCULOSKELETAL: Positive Musculoskeletal Disorders, Arthritis and Osteoporosis OTHER HISTORY: Positive Chicken Pox, Measles and Mumps Family History FAMILY HISTORY: Positive Family Cardiac Disorders Surgical History SURGICAL: Positive Pacemaker and Joint Replacement Social History SMOKING STATUS: Never smoker SUBSTANCE USE: does not use ED Exam Narrative Physical exam: Physical Exam General: Awake and in no acute distress. Conversational and non-toxic appearing. HEENT: Normocephalic, atraumatic, mucous membranes moist. Heart: Irregular with elevated rate 100, no murmurs. Lungs: Clear to auscultation with no wheezing or crackles. Abdomen: Soft, nondistended, nontender, positive bowel sounds. ?No guarding or rebound tenderness. Neurologic: Alert and oriented x3, no gross neurological deficit, and patient able to move all 4 extremities. Extremities: No edema. Skin: Fluctuant abscess noted in the gluteal region extending all the way to the scrotum, some fluctuation noted in the scrotum as well. Course Course Course Narrative: Patient seen from triage and ED room 8 Abscess noted at bedside, CT abdomen pelvis with contrast ordered in triage Labs reviewed CBC: WBC 34.5, hemoglobin 17, platelet count 496, neutrophil 87%, neutrophilia noted CMP: Creatinine elevated at 1.4, GFR 55, glucose 146, lactate 4.2, magnesium 1.8, CRP 1.0 CT abdomen pelvis shows Large infectious process containing air densities in the right perineum extending from the right posterior buttock region along the entire length of the perineum to the base of the scrotum Findings discussed with general surgeon Dr. Garcia who recommended admitting henna ent, Dr. Garcia came and evaluated the patient to ensure there is no concern of Oli's gangrene, initially admission was held as patient needed surgery evaluation prior to admission. Dr. Garcia is agreeable to admission by hospitalist team for IV antibiotics and sitz bath, he will continue to follow case in case I&D is needed Quality Measures Current suspected stage: severe sepsis (Patient will be given 1 L NS only due to history of heart failure with preserved ejection fraction) Possible source: skin/soft tissue Blood cultures ordered: yes Antibiotic ordered: Yes Pertinent labs: 06/08/25 06/08/25 14:45 16:50 Lactic Acid 4.2 H* mMol/L (0.4-2.0) Procalcitonin 0.10 ng/ml (0.0-0.49) sepsis and none Orders Category Date Time Status COVID-19 Screening Questionnaire NOW Care 06/08/25 17:[address] Screening NOW Care 06/08/25 14:38 Active Adjunct Political Science Instructor Q4H START 00 Care 06/08/25 16:30 Active Continuous Pulse Oximetry NOW Care 06/08/25 16:30 Active Continuous Pulse Oximetry STAT Care 06/08/25 16:34 Active Decision to Admit X1 Care 06/08/25 17:00 Active EKG (ED ONLY) *Do not use* NOW Care 06/08/25 16:34 Completed In and Out Catheter X1PRN Care 06/08/25 16:34 Active Insert IV NOW Care 06/08/25 16:30 Active NPO STAT Care 06/08/25 16:34 Active Strict Intake and Output Routine Care 06/08/25 16:34 Ordered Consult to General Surgery Stat Cons 06/08/25 16:[address] abdomen pelvis w con Stat Exams 06/08/25 14:37 Completed EKG (ED Only) Stat Exams 06/08/25 16:34 Draft B-Type Natriuretic Peptide Stat Lab 06/08/25 16:50 Completed Blood Culture (Lab) Stat Lab 06/08/25 16:55 Received CBC Stat Lab 06/08/25 14:45 Completed CMP [Comprehensive Metabolic Panel] Stat Lab 06/08/25 14:45 Completed CRP [C-Reactive Protein] Stat Lab 06/08/25 14:45 Completed LDH (Lactate Dehydrogenase) Stat Lab 06/08/25 16:50 Completed Lactic Acid [Lactate (Lactic Acid)] Stat Lab 06/08/25 14:45 Completed Lactic Acid, 3 HR Stat Lab 06/08/25 18:25 Completed Magnesium Stat Lab 06/08/25 16:50 Completed Partial Thromboplastin Time Stat Lab 06/08/25 16:50 Completed Phosphorous Stat Lab 06/08/25 16:50 Completed Procalcitonin Stat Lab 06/08/25 16:50 Completed Prothrombin Time with INR Stat Lab 06/08/25 16:50 Completed Urinalysis, C/S if Indicated Stat Lab 06/08/25 17:15 Completed Doxycycline Inj [Vibramycin Inj] 100 mg Med 06/08/25 16:41 Discontinued Sodium Chloride 0.9% (Pop) [NS 0.9% mini bag] 100 ml IV X1 HYDROmorphone INJ [Dilaudid Inj] Med 06/08/25 14:36 Discontinued 2 mg IM X1 ONE Ondansetron Odt [Zofran Odt] Med 06/08/25 14:36 Discontinued 4 mg PO X1 ONE Piper/Tazo Inj [Zosyn Inj] 4.5 gm Med 06/08/25 16:41 Discontinued Sodium Chloride 0.9% (Pop) [NS 0.9% mini bag] 100 ml IV X1 Ringers Lactated 1000 ml [Lactated Ringers] 1,000 ml Med 06/08/25 15:12 Discontinued IV 2,000 mls/hr Sodium Chloride 0.9% 1000 ml [Ns] 1,000 ml Med 06/08/25 16:32 Discontinued IV 999 mls/hr Oxygen Delivery NOW RT 06/08/25 16:34 Active Vital Signs Vital signs: Vital Signs Temperature 98.3 F 06/08/25 13:54 Pulse Rate 101 H 06/08/25 13:54 Respiratory Rate 20 06/08/25 13:54 Blood Pressure 113/75 06/08/25 13:54 Pulse Oximetry (%) 96 06/08/25 13:54 Oxygen Delivery Method Room Air 06/08/25 13:54 Skin / Abscess / Foreign Body MDM Narrative MDM Narrative:: # Right gluteal abscess #Suspicion of sepsis Abscess noted at bedside, CT abdomen pelvis with contrast ordered in triage CBC: WBC 34.5, hemoglobin 17, platelet count 496, neutrophil 87%, neutrophilia noted CMP: Creatinine elevated at 1.4, GFR 55, glucose 146, lactate 4.2, magnesium 1.8, CRP 1.0 CT abdomen pelvis shows Large infectious process containing air densities in the right perineum extending from the right posterior buttock region along the entire length of the perineum to the base of the scrotum Findings discussed with general surgeon Dr. Garcia who recommended admitting patient, Dr. Garcia came and evaluated the patient to ensure there is no concern of Oli's gangrene, initially admission was held as patient needed surgery evaluation prior to admission. Patient was given 1 L NS, not given 30 cc/kg due to history of heart failure with preserved ejection fraction Patient was given IV Zosyn and doxycycline Blood cultures were ordered Dr. Garcia is agreeable to admission by hospitalist team for IV antibiotics and sitz bath, he will continue to follow case in case I&D is needed Case discussed with Attending Physician Dr. Nicol Sales MD Internal Medicine PGY-2 Disclaimer: This note was dictated by speech recognition. Minor errors in net programmer may be present due to voice recognition software. Patient data External records reviewed:: [facility] previous records Clinical information provided by:: patient Social determinants that could affect healthcare access:: none Patient has the following chronic illnesses:: As Above How is presenting disease/condition affected by chronic disease/condition?: exacerbated by Evaluation data The following diagnostics were reviewed and interpreted by me:: lab results, radiology exam(s) and EKG tracing(s) Lab and/or radiology exams considered but not ordered:: None Interpretation Summary: CBC: WBC 34.5, hemoglobin 17, platelet count 496, neutrophil 87%, neutrophilia noted CMP: Creatinine elevated at 1.4, GFR 55, glucose 146, lactate 4.2, magnesium 1.8, CRP 1.0 CT abdomen pelvis shows Large infectious process containing air densities in the right perineum extending from the right posterior buttock region along the entire length of the perineum to the base of the scrotum EKG showed atrial fibrillation RVR, rate 101 Medications / Prescriptions Medications or Prescriptions considered but not ordered:: None Medication administrations:: Medication Administration History Acetaminophen (Acetaminophen 325 Mg Tablet) 650 mg PO Q6H PRN PRN Reason: Fever >101.5 and pain 1-3 Stop: 07/08/25 18:04 Hydrocodone Bitart/Acetaminophen (Hydrocodone/Apap 5/325 Tablet) 1 tab PO Q4HR PRN PRN Reason: PAIN SCALE 4-6 (Moderate Stop: 06/13/25 18:04 Docusate Sodium (Docusate Sod Liqd 100 Mg/10 Ml Udc) 100 mg PO BID PRN; Protocol PRN Reason: constipation >2 days wo BM Stop: 07/08/25 20:59 Lactated Ringer's (Lactated Ringers) 1,000 mls @ 85 mls/hr IV .[id number] DARLENE Stop: 06/09/25 17:46 Piperacillin/Tazobactam/Dextrose (Zosyn) 3.375 gm in 50 mls @ 12.5 mls/hr IV Q8HR DARLENE; Protocol Stop: 06/15/25 21:59 Vancomycin/Sodium Chloride (Vancomycin/Ns 1 Gm Ivpb) 200 mls @ 120 mls/hr IV X1 ONE Stop: 06/08/25 20:09 Clindamycin Phosphate 900 mg/ (IV Miscellaneous Supplies) 50 mls @ 50 mls/hr IV Q8HR DARLENE Stop: 06/15/25 21:59 Ondansetron HCl (Ondansetron Inj 2 Mg/Ml Inj 2 Ml) 4 mg IVP Q6H PRN; Protocol PRN Reason: NAUSEA OR VOMITING Stop: 07/08/25 18:04 Pharmacy Consult (Vancomycin Pharmacy To Dose 1 Each Each) 1 each IV QDAY PRN PRN Reason: PROTOCOL Stop: 07/08/25 18:14 Sennosides (Senna Tablet) 1 tab PO QDAY PRN; Protocol PRN Reason: constipation Stop: 07/08/25 18:04 Discontinued Medications Hydromorphone HCl (Hydromorphone Inj 2 Mg/Ml Vial) 2 mg IM X1 ONE Stop: 06/08/25 14:37 Last Admin: 06/08/25 14:47 Dose: 2 mg Documented By: CLEMENTINE Lactated Ringer's (Lactated Ringers) 1,000 mls @ 2,000 mls/hr IV .Q30M ONE Stop: 06/08/25 15:41 Last Admin: 06/08/25 17:44 Dose: Not Given Documented By: ESTUARDO Non-Admin Reason: Discontinued Sodium Chloride (Ns) 1,000 mls @ 999 mls/hr IV .Q1H1M ONE Stop: 06/08/25 17:32 Last Admin: 06/08/25 17:04 Dose: 999 mls/hr Documented By: SAL Piperacillin Sod/Tazobactam (Sod 4.5 gm/ Sodium Chloride) 100 mls @ 200 mls/hr IV X1 ONE; Protocol Stop: 06/08/25 17:10 Last Admin: 06/08/25 17:04 Dose: 200 mls/hr Documented By: SAL Doxycycline Hyclate 100 mg/ (Sodium Chloride) 100 mls @ 100 mls/hr IV X1 ONE Stop: 06/08/25 17:40 Last Admin: 06/08/25 17:04 Dose: 100 mls/hr Documented By: SAL Clindamycin/Sodium Chloride (Cleocin/Ns Ivpb) 300 mg in 50 mls @ 100 mls/hr IV Q8HR DARLENE Stop: 06/15/25 18:09 Ondansetron HCl (Ondansetron Odt 4 Mg Tabrap) 4 mg PO X1 ONE; Protocol Stop: 06/08/25 14:37 Last Admin: 06/08/25 14:47 Dose: 4 mg Documented By: MF As above Consultations Consultation(s) initiated? (list below): Yes Consultation #1 (Physician, Specialty, Details): Dr Garcia, general surgeon, right gluteal abscess Diagnosis Skin/Abscess Differential Diagnosis: abscess of skin or subcutaneous tissue and cellulitis Most likely diagnosis given after review of the tests above:: Right gluteal abscess and cellulitis Admission Indicated Admission indicated?: indicated Admission Request Was there a request for admission?: Yes Admission Attestation Admission request attestation: Discussed case with Dr Sher from Hospitalist service regarding admission. Discussed patients ED course, exam findings, labs, and radiology results. The Hospitalist agrees to accept the patient for admission. Disposition Plan Disposition Plan: Admit Discharge Plan Plan Patient Disposition: Admit Acute Care w/in Hospital Problem List Clinical Impression: Abscess, gluteal, right
[2025-06-08] MEDS: SODIUM CHLORIDE 0.9% 1000 ML 1,000 ML 999 ML IV (17:04)
[2025-06-08] MEDS: DOXYCYCLINE INJ 100 MG in SODIUM CHLORIDE 0.9% (POP) 100 ML IV (17:04)
[2025-06-08] MEDS: PIPER/TAZO INJ 4.5 GM in SODIUM CHLORIDE 0.9% (POP) 100 ML IV (17:04)
[2025-06-08 17:32] LABS: INR 1.1 (0.9-1.3); Partial Thromboplastin Time 27.2 Seconds (22.0-36.0); Prothrombin Time 12.0 Seconds (9.0-12.2)
--- NOTE | 2025-06-08 17:32 | PD.RESEVENT ---
Documentation for date of: 06/08/25 Event Note Event Note: Mr. 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 Marquez who presents with right gluteal abscess noted by patient for the past 3 to 4 days started to drain here in the emergency department his initial vital signs were stable notable for heart rate of 101 his labs were notable for a white count of 34.5 creatinine of 1.4 with a baseline 1.0 lactic acidosis of 4.2, and CRP of 1.0 EKG showed afib with rvr, rate 100s, CTAP showed large infectious process containing area densities in the right perineum extending from the right posterior buttock region along the entire length of the perineum to the base of the scrotum. Internal medicine team was called for potential admit, Dr. Garcia was consulted for likely I&D however given CTAP findings and concern for 40 years was told to hold admission given patient may need higher level of care. Dr. Garcia will come and evaluate patient and assess for whether patient can be admitted for I&D or transfered.
[2025-06-08 17:38] LABS: B-Type Natriuretic Peptide 49 pg/mL (0-100)
[2025-06-08 17:42] LABS: Collection Type, Urine Clean Catch
[2025-06-08 17:47] LABS: LDH (Lactate Dehydrogenase) 229 U/L (120-246); Magnesium 1.8 mg/dL (1.6-2.6); Phosphorous 4.0 mg/dL (2.4-5.1); Procalcitonin 0.10 ng/ml (0.0-0.49)
[2025-06-08 17:55] LABS: Reflex Lactate? Y
[2025-06-08 17:57] LABS: Bilirubin,Urine Negative (Negative); Blood,Urine Negative (Negative); Clarity,Urine Clear (Clear/Hazy); Color,Urine Lt-Yellow (Lt Yel-Yel); Culture Indicated,Urine Not Indicated; Glucose, Urine Negative (Negative); Hyaline Casts,Urine < 1 /hpf (0-1); Ketones,Urine Negative (Negative); Leukocyte Esterase,Urine Negative (Negative); Nitrite,Urine Negative (Negative); PH,Urine 6.0 (5.0-7.0); Protein,Urine Negative (Neg - Trace); RBC,Urine 7 /hpf (0-3); Specific Gravity,Urine 1.049 (1.001-1.035); Squamous Epithelial Cell,Urine 1 /hpf (0-5); Urobilinogen,Urine Negative mg/dL (0.0-1.0); WBC,Urine 1 /hpf (0-5)
--- NOTE | 2025-06-08 18:13 | ESHP_ITS ---
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 Started few days, grew in size, has discharge. Patient denies any fever, chills, SOB, or chest pain. Area is erythematous with palpable indurated mass along boader of right buttox. No noticeable pus draining. Vitals are stable, leukocytosis 34, Cr 1.4 (baseline 1.0), lactic acidosis 4.2, elevated CRP 1.0, UA negative. CT A/P Large infectious process containing air densities in the right perineum extending from the right posterior buttock region along the entire length of the perineum to the base of the scrotum. Surgery Dr. Garcia was consulted. He evaluated patient and said that it was okay to admit patient. Admit for sepsis 2/2 skin infeciton. We will start broad spectrum coverage with Vancomycin, IV Zosyn 3.375g TID, and IV clindamycin 900mg TID. Continue fluids for VIOLETA as well. Trend lactic acid. Lactic acidosis likely type A due to sepsis. Follow up with blood cultures. Keep NPO at patient for possible I&D. The patient's management plan was discussed with my attending physician Dr. Herbert. Naina Sher, PGY-2 Documentation for date of: 06/08/25 HPI History of Present Illness Chief complaint: R Buttock abscess History of present illness: Mr. 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 Marquez who presents with right gluteal abscess noted by patient for the past 3 to 4 days started to drain here in the emergency department. He states that he has had abscesses in the past on his buttocks and posterior knee that have resolved with warm compresses, he has never had surgery for them in the past. He took his home dose of elequis this morning 5 mg. Allergies: None FHx: Positive Family Cardiac Disorders in mother, both parents PSHx: Positive Pacemaker and knee replacement surgery SHx: Never smoker, uses cannabis for nausea control, drinks beer occasionally. ROS: denies fevers, chills, nausea, vomiting, diarrhea, constipation, chest pain endorses R gluteal pain ED Course Vital signs stable blood pressure 113/75 heart rate 101, afebrile, General Surgery was consulted given possible I&D, patient was evaluated recommend medical management. Per Dr. Garcia low suspicion for necrotizing fasciitis or Oli's gangrene. Pertinent labs: white count of 34.5 creatinine of 1.4 with a baseline 1.0 lactic acidosis of 4 CRP 1.0 and CRP of 1.0 EKG showed afib with rvr, rate 100 CTAP showed large infectious process containing area densities in the right perineum extending from the right posterior buttock region along the entire length of the perineum to the base of the scrotum. Review of Systems Review of Systems Narrative Review of Systems: as per hpi Exam Vital Signs Temp Pulse Resp BP Pulse Ox O2 Del Method 99.3 F 108 H 19 122/82 95 Room Air 06/08/25 17:05 06/08/25 17:05 06/08/25 17:05 06/08/25 17:05 06/08/25 17:05 06/08/25 17:05 Narrative Exam pt examined after getting dilaudid for pain, more comfortable. GENERAL: no acute distress, AAO x3, comfortably laying in bed HEENT: Head AT/ NC. Mucous membranes moist. PERRL. NECK: cervical lymphadenopathy palpable CARDIOVASCULAR: Irregularly Irregular, Rate 100s. Normal S1/S2, No m/r/g. No pitting edema of bilateral LEs. Pulses 2 + bilaterally LE RESPIRATORY: CTAB. No wheezing, rhonchi, crackles. GASTROINTESTINAL: Abdomen soft, non tender no palpable masses. Bowel sounds present Fluctuant 3cm area on the right medial glute cleft. mildly tender to palpation, MUSCULOSKELETAL:? No cyanosis or edema, no visible joint swelling. NEUROLOGICAL: CN II-XII grossly intact. No focal deficits. Sensation intact, symmetric. PSYCHIATRIC: Awake and alert, not agitated, normal mood and affect. SKIN: some dry skin noted on pt posterior lowerback and upper buttocks. no jaundice, normal turgor. Results: Labs 06/09/25 06:03 06/09/25 06:03 Labs: Short CBC 06/08/25 Range/Units 14:45 WBC 34.5 H (3.8-10.6) Thou/mm3 Hgb 17.0 H (13.5-16.0) g/dL Hct 50.5 (41.0-53.0) % Plt Count 496 H D (140-440) Thou/mm3 BMP 06/08/25 14:45 Sodium 136 Potassium 5.0 Chloride 100 Carbon Dioxide 21.8 BUN 18 Creatinine 1.4 H Glucose 146 H Calcium 10.0 Liver Function 06/08/25 Range/Units 14:45 Total Bilirubin 0.6 (0.3-1.2) mg/dL AST 23 (0-34) U/L ALT 32 (10-49) U/L Alkaline Phosphatase 173 H (46-116) U/L Albumin 4.5 (3.4-4.8) gm/dL Urine 06/08/25 Range/Units 17:15 Urine Color Lt-Yellow (Lt Yel-Yel) Urine Clarity Clear (Clear/Hazy) Urine pH 6.0 (5.0-7.0) Ur Specific [place] 1.049 H (1.001-1.035) Urine Protein Negative (Neg - Trace) Urine Glucose (UA) Negative (Negative) Quality Measures Quality Measures VTE prophylaxis Advance care planning discussed with:: patient and spouse Medications Home Medications and Allergies Home Medications ?Medication ?Instructions ?Recorded ?Confirmed ?Type apixaban 5 mg tablet (Eliquis) 5 mg PO BID 12/12/23 History allopurinol 300 mg tablet 300 mg PO DAILY 03/16/25 History lisinopril 20 mg tablet 20 mg PO DAILY 03/16/2505/26 History digoxin 125 mcg (0.125 mg) tablet 0.125 mg PO DAILY 06/08/25 History diltiazem HCl 240 mg capsule,24 240 mg PO Q24H 5 06/08/25 History hr,extended release methotrexate sodium 2.5 mg tablet 15 mg PO .Q WEEKLY 0 05/26/25 06/08/25 History methylprednisolone 4 mg tablet 4 mg PO QDAY 05/26/25 0 06/08/25 History metoprolol tartrate 100 mg tablet 100 mg PO Q12H 05/2606/08/25 History Allergies Allergy/AdvReac Type Severity Reaction Status Date / Time No Known Allergies Allergy Verified 06/08/25 13:10 Visit Medications Acetaminophen (Acetaminophen 325 Mg Tablet) 650 mg PO Q6H PRN PRN Reason: Fever >101.5 and pain 1-3 Stop: 07/08/25 18:04 Hydrocodone Bitart/Acetaminophen (Hydrocodone/Apap 5/325 Tablet) 1 tab PO Q4HR PRN PRN Reason: PAIN SCALE 4-6 (Moderate Stop: 06/13/25 18:04 Lactated Ringer's (Lactated Ringers) 1,000 mls @ 85 mls/hr IV .[id number] DARLENE Stop: 06/09/25 17:46 Clindamycin/Sodium Chloride (Cleocin/Ns Ivpb) 300 mg in 50 mls @ 100 mls/hr IV Q8HR DARLENE Stop: 06/15/25 18:09 Piperacillin/Tazobactam/Dextrose (Zosyn) 50 mls @ 100 mls/hr IV Q6HR DARLENE; Protocol Stop: 06/16/25 00:00 Ondansetron HCl (Ondansetron Inj 2 Mg/Ml Inj 2 Ml) 4 mg IVP Q6H PRN; Protocol PRN Reason: NAUSEA OR VOMITING Stop: 07/08/25 18:04 Pharmacy Consult (Vancomycin Pharmacy To Dose 1 Each Each) 1 each IV QDAY DARLENE Stop: 07/08/25 18:14 Sennosides (Senna Tablet) 1 tab PO QDAY PRN; Protocol PRN Reason: constipation Stop: 07/08/25 18:04 Discontinued Medications Hydromorphone HCl (Hydromorphone Inj 2 Mg/Ml Vial) 2 mg IM X1 ONE Stop: 06/08/25 14:37 Last Admin: 06/08/25 14:47 Dose: 2 mg Lactated Ringer's (Lactated Ringers) 1,000 mls @ 2,000 mls/hr IV .Q30M ONE Stop: 06/08/25 15:41 Last Admin: 06/08/25 17:44 Dose: Not Given Sodium Chloride (Ns) 1,000 mls @ 999 mls/hr IV .Q1H1M ONE Stop: 06/08/25 17:32 Last Admin: 06/08/25 17:04 Dose: 999 mls/hr Piperacillin Sod/Tazobactam (Sod 4.5 gm/ Sodium Chloride) 100 mls @ 200 mls/hr IV X1 ONE; Protocol Stop: 06/08/25 17:10 Last Admin: 06/08/25 17:04 Dose: 200 mls/hr Doxycycline Hyclate 100 mg/ (Sodium Chloride) 100 mls @ 100 mls/hr IV X1 ONE Stop: 06/08/25 17:40 Last Admin: 06/08/25 17:04 Dose: 100 mls/hr Ondansetron HCl (Ondansetron Odt 4 Mg Tabrap) 4 mg PO X1 ONE; Protocol Stop: 06/08/25 14:37 Last Admin: 06/08/25 14:47 Dose: 4 mg Assessment & Plan Plan Mr. Pena is a 65-year-old gentleman with a history of A-fib on Eliquis 5 mg twice daily, heart failure with preserved ejection fraction 55 to 60% on echo done 02/2025, sick sinus, status post pacemaker (follows with Dr. Marquez) hypertension, Castleman's disease on every 3 weeks rituximab infusions, who presented with right gluteal abscess noted by patient for the past 3 to 4 days, gen surg consulted for i and d, continue on broad spectrum abx, npo at midnight. R gluteal abscess/cellulitis, low concern for Oli's gangrene and necrotizing fasciitis at this time SOFA score 1 SIRS Criteria HR >90 (hx afib with rvr), and WBC 34 (?pt taking methylprednisolone 4mg qd, follow up med reconciliation) Dx - CTAP with large abscess on R buttocks extending toward the scrotum - Bcx pending - Lactic acid 4.2 (continue trending), suspect type a (hypoperfusion) - procalcitonin negative - UA [place] - CRP 1.0 Plan - General surgery consulted, appreciate recs - I and D - NPO at midnight - Broad Spectrum Abx - IVF LR 85 cc/hr - Clindamycin 900 mg q8hr (06/08- - Vanc, pharmacy to dose (06/08- - Zosyn 3.375 q8hr (06/08- - Zosyn 4.5 x 1 #VIOLETA Cr: 1.4 with baseline 1.0 Ddx: Consider pre vs intra vs post renal etiologies pt does take methotrexate and allopurinol which could contribute to VIOLETA, pt reports normal po intake in the past few days. Dx - BUN/Cr ratio: 13, which is <20, so consider - Daily CMP Tx - Avoid nephrotoxic medications - Increased maintenance fluids to 90ml/hr LR Plan - avoid nephrotoxic agents - continue IVF LR 85 cc/hr HFpEF (55-60% 02/2025) Sick sinus s/p pace maker HTN Afib with RVR follows with Dr. Marquez EKG with afib with RVR, Rate 100s Plan - Metoprolol tartrate 100 mg BID - Digoxin 0.125 PO qd - Diltiazem 240 mg qd - HOLD lisinopril 20 mg qd - HOLD home elequis 5mg BID - HOLD Bumetadine 1 mg qd ?Asthma on home albuterol 2 puffs q4hr prn - supplemental O2 PRN Castlemans Disease follows with rubber curer in [place] - rituximab infusions [id number] - hold methotrexate 15 mg qweekly (monitor folic acid) - ?methylprednisolone 4mg po qd - ?allopurinol 300mg qd Dispo: admitted for managment of R glute abcsess, gen surg consulted, plan for i and d, on broad spectrum abx Diet: cardiac diet Mechanical alteration, NPO at midnight Bowel Reg: senna VTE ppx: SCD, hold home elequis GI ppx: not indicated Code status: FULL Plan discussed with Dr. Sher, and Dr. Piedad Dial MD PGY1 Attending Provider Attestation/Addendum I have discussed and was present for the essential components of the history, physical examination, diagnosis, and treatment plan with the resident. I agree with the patient's care as documented by the resident and amended herein by me. Quan Herbert DO. Although this document has been carefully reviewed, there may still be some phonetic and other typographical errors. These errors are purely grammatical due to imperfections in the software program and should not be construed in any way to compromise the substance of the patient's medical care during this visit.
--- NOTE | 2025-06-08 18:20 | XR_ITS ---
Examination: PA lateral chest 2 views Technique: Upright PA lateral chest 2 views Date and time: June 08, 2025 1827 hrs., Comparison May 28, 2025 Indications: Prominent mediastinum on earlier chest imaging Findings: Prominent mediastinum, please see the CT chest May 25, 2025 indicating extensive mediastinal lymphadenopathy Mild prominence left ventricle. No lobar pneumonia or pulmonary edema The film is underpenetrated Moderate thoracic spondylosis Impression: Extensive mediastinal lymphadenopathy
--- NOTE | 2025-06-08 18:21 | PD.SURCONS ---
HPI Consult details Consult date: 06/08/25 Reason for consultation narrative: Patient was seen in consultation because of perianal sepsis History of present illness: History of present illness revealed that the patient was in his usual health until about 3 days ago when he noticed some tenderness over the right buttock. He did not have much pain he did not have any fever or chills. He has a history of Castleman's disease for which he is getting infusion of monoclonal antibodies called Sylvant. He has been was diagnosed in [place] and subsequently he is receiving this transfusion in [place]. His disease is under control according to the patient. 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 He also has had a right pleural effusion in February of this year. He had a pacemaker implanted for sick sinus syndrome. He has been admitted a few times in the hospital this year and recently for a COVID infection 2 weeks ago Past Medical History Past Medical History NEUROLOGIC: Negative Neurological Disorders or Seizures CARDIAC: Positive Cardiac Disorders, Cardiac Arrhythmia, Atrial Fibrillation, Congestive Heart Failure, Congenital Heart Disease, Edema and Hypertension RESPIRATORY: Positive Bronchitis and Pneumonia; Negative Chronic Obstructive Pulmonary Disease (COPD) or Asthma GASTROINTESTINAL: Negative Gastrointestinal Disorders GENITOURINARY: Negative Genitourinary Disorders or Renal Disease MUSCULOSKELETAL: Positive Musculoskeletal Disorders, Arthritis and Osteoporosis ENDOCRINE: Negative Endocrine Disorders, Diabetes Mellitus Type 1 or Diabetes Mellitus Type 2 HEMATOLOGIC: Negative Blood Disorders or Sickle Cell Disease OTHER HISTORY: Positive Chicken Pox, Measles and Mumps; Negative Hospitalization, Autoimmune Disease, Shingles, Falls, Blood Transfusions, Blood Transfusion Reaction, Anesthesia Reactions, Organ Transplant, MRSA or Cancer Family History FAMILY HISTORY: Positive Family Cardiac Disorders; Negative Family Psychiatric Problems, Family Respiratory Disorders, Family Gastrointestinal Problems, Family Cancer or Family Anesthesia Reaction Surgical History SURGICAL: Positive Pacemaker, Joint Replacement, Knee Sx and of Back Surgery; Negative Neurologic Surgery or Organ Transplant Social History SMOKING STATUS: Never smoker SUBSTANCE USE: does not use Meds Home Medications and Allergies Home Medications ?Medication ?Instructions ?Recorded ?Confirmed ?Type apixaban 5 mg tablet (Eliquis) 5 mg PO BID 12/12/23 05/26/25 History allopurinol 300 mg tablet 300 mg PO DAILY 03/16/25 05/26/25 History lisinopril 20 mg tablet 20 mg PO DAILY 03/16/25 05/26/25 History albuterol sulfate 90 mcg/actuation 2 puff inhalation Q4H PRN 05/26/25 05/26/25 History aerosol inhaler shortness of breath or wheezing benzonatate 100 mg capsule 100 mg PO TID PRN cough 05/26/25 05/26/25 History digoxin 125 mcg (0.125 mg) tablet 0.125 mg PO DAILY 05/26/25 05/26/25 History diltiazem HCl 240 mg capsule,24 240 mg PO Q24H 05/26/25 05/26/25 History hr,extended release methotrexate sodium 2.5 mg tablet 15 mg PO .Q WEEKLY 05/26/25 05/26/25 History methylprednisolone 4 mg tablet 4 mg PO QDAY 05/26/25 05/26/25 History metoprolol tartrate 100 mg tablet 100 mg PO Q12H 05/26/25 05/26/25 History Allergies Allergy/AdvReac Type Severity Reaction Status Date / Time No Known Allergies Allergy Verified 06/08/25 13:10 Exam Vital Signs Temp Pulse Resp BP Pulse Ox O2 Del Method 98.0 F 98 19 108/74 95 Room Air 06/08/25 18:19 06/08/25 18:19 06/08/25 18:19 06/08/25 18:19 06/08/25 18:19 06/08/25 18:19 Narrative Exam Physical examination revealed slightly obese male who is 6 feet 1 inch tall weighing 245 pounds with BMI of 32.3. His vital signs are normal Routine Chest/Breast/Axilla Exam Comments: Examination of the chest showed pacemaker insertion on the left side Routine Rectal Exam Comments: Rectal area revealed the patient has some induration over the right buttock and some on the right perineum but no mayur cellulitis or abscess or palpable fluctuant mass Routine Exam Comments: No evidence of abnormality Results Results: Laboratory Laboratory Narrative: Patient's laboratory workup showed marked leukocytosis of 35,000. Patient also has lactic acid of 4.2 Results: Imaging Imaging narrative: CT scan of the pelvis revealed extensive large perirectal infection on the right buttock region extending into the perineum on the right side all the way to the scrotum Assessment & Plan Additional Assessment Additional comments: Impression: Perianal cellulitis Immunosuppression due to infusion of Sylvant Status post pacemaker for sick sinus syndrome Obesity Atrial fibrillation with anticoagulation with Eliquis Plan Plan: Patient will require antibiotic therapy and incision and drainage. It has appearance of [place] gangrene on the CT scan but the patient looks clinically stable. He may have a considerable amount of infection underneath as shown by the CT scan with air bubbles which only means anaerobic infection. With immunosuppression patient is a high risk for developing Oli's gangrene. I would start him on broad-spectrum antibiotics and sitz bath twice daily and arrange for drainage in a day or 2. I would stop Eliquis until surgery is done.
[2025-06-08 18:32] LABS: Lactic Acid, 3 HR 3.2 mMol/L (0.4-2.0)
[2025-06-08] MEDS: VANCOMYCIN/NS 1 GM IVPB 200 ML IV (19:10)
[2025-06-08] MEDS: RINGERS LACTATED 1000 ML 1,000 ML 85 ML IV (19:28)
--- NOTE | 2025-06-08 21:23 | PC.NURSE ---
attempted to call report waiting for call back
[2025-06-08] MEDS: HYDROcodone/APAP 5/325 TABLET 1 TAB PO (21:58)
[2025-06-08] MEDS: PIPER/TAZO 3.375 GM PREMIX 3.375 GM/50 ML BAG IV (21:59)
[2025-06-08] MEDS: CLINDAMYCIN 900MG IVPB 900 MG in PRE-MIXED 1 BAG 50 MG IV (22:41)
[2025-06-09] VITALS (14 sets, daily range): BP systolic 103–134; BP diastolic 70–96; PULSE 68–148; RESP 16–96; TEMP 36.1–36.4; O2SAT 95–98
[2025-06-09 00:41] LABS: Lactate (Lactic Acid) 2.8 mMol/L (0.4-2.0)
[2025-06-09 03:41] LABS: Reflex Lactate? Y
--- NOTE | 2025-06-09 03:47 | PC.NURSE ---
tierra to give norco po for pain with a sip of water per Dr. Swartz.
[2025-06-09] MEDS: HYDROcodone/APAP 5/325 TABLET 1 TAB PO ×3 (03:50→18:00)
--- NOTE | 2025-06-09 04:44 | EKG_ITS ---
[facility] (Formerly [facility]) Test Date: 2025-06-09 Pat Name: SALVADOR GUTIERREZ [facility] Cardiology Technician: SRINATH : 1960 Requested By: Romaine Swartz Order Number: [id number] Reading MD: Romaine Swartz Measurements Intervals Sandy Rate: 131 P: UT: QRS: 53 QRSD: 89 T: -42 QT: 301 QTc: 444 Interpretive Statements ATRIAL FIBRILLATION WITH RAPID VENTRICULAR RESPONSE WITH ABERRANT CONDUCTION OR VENTRICULAR PREMATURE COMPLEXES NONSPECIFIC ST & T-WAVE ABNORMALITY Compared to ECG 06/08/2025 17:22:15 Ventricular premature complex(es) now present Aberrant conduction of supraventricular beat(s) now present T-wave abnormality still present /store/S0/[id number].pdf
--- NOTE | 2025-06-09 04:52 | PC.NURSE ---
HR 150 with PVCs and bigeminy, Dr. Swartz was made aware. EKG ordered per MD request.
[2025-06-09] MEDS: CLINDAMYCIN 900MG IVPB 900 MG in PRE-MIXED 1 BAG 50 MG IV ×3 (05:10→21:27)
[2025-06-09] MEDS: PIPER/TAZO 3.375 GM PREMIX 3.375 GM/50 ML BAG IV ×3 (05:11→22:37)
[2025-06-09] MEDS: DIGOXIN 0.125 MG TABLET PO ×2 (05:55→09:55)
[2025-06-09] MEDS: DILTIAZEM CD 120 MG CAPCR 240 MG PO (05:55)
--- NOTE | 2025-06-09 05:56 | PC.NURSE ---
per tierra Walsh to give digoxin 125 mcg, and diltiazem 240 mg with a sip of water. pt is NPO.
[2025-06-09 06:26] LABS: Lactate (Lactic Acid) 3.3 mMol/L (0.4-2.0)
[2025-06-09 06:27] LABS: Basophils # (Auto) 0.1 Thou/mm3 (0.0-0.2); Basophils % (Auto) 0 % (0-2.5); Eosinophils # (Auto) 0.1 Thou/mm3 (0.0-0.5); Eosinophils % (Auto) 0 % (0-10); Hemoglobin 15.1 g/dL (13.5-16.0); Lymphocytes # (Auto) 1.4 Thou/mm3 (1.0-4.8); Mean Corpuscular Volume 99 fL (80-100); Monocytes # (Auto) 0.7 Thou/mm3 (0.0-0.8); Monocytes % (Auto) 2 % (0-12); Nucleated Red Blood Cell # 0.00 Thou/mm3 (0.00-0.00); Nucleated Red Blood Cell % 0 /100 WBC (0)
[2025-06-09 06:29] LABS: Hematocrit 45.4 % (41.0-53.0); Immature Granulocytes Auto 0.40 Thou/mm3 (0.00-0.00); Lymphocytes % (Auto) 4 % (10-50); Mean Corpuscular HGB Conc 33.3 g/dl (31.0-37.0); Mean Corpuscular Hemoglobin 33.0 pg (25.0-35.0); Neutrophils # (Auto) 30.8 Thou/mm3 (1.8-7.7); Neutrophils % (Auto) 92 % (37-80); Platelet Count 352 Thou/mm3 (140-440); RDW Standard Deviation 52.8 fL (35.1-43.9); Red Blood Count 4.58 Miln/mm3 (4.50-5.90); White Blood Count 33.5 Thou/mm3 (3.8-10.6)
[2025-06-09 07:06] LABS: Alanine Aminotransferase 18 U/L (10-49); Albumin, Serum 3.4 gm/dL (3.4-4.8); Albumin/Globulin Ratio 1.3 (1.2-2.2); Alkaline Phosphatase 138 U/L (46-116); Anion Gap 9 (7-16); Aspartate Amino Transferase < 10 U/L (0-34); BUN/Creatinine Ratio 19 Ratio (12-20); Bilirubin,Total 0.9 mg/dL (0.3-1.2); Blood Urea Nitrogen 21 mg/dL (9-23); Calcium 9.0 mg/dL (8.3-10.6); Calcium (Corrected) 9.5 mg/dL (8.5-10.1); Carbon Dioxide 27.5 mMol/L (20.0-31.0); Chloride 102 mMol/L (98-107); Creatinine (Component) 1.1 mg/dL (0.6-1.3); Estimated Creatinine Clearance 84.9 mL/min (>60); Globulin 2.7 gm/dL (2.3-3.5); Glucose 136 mg/dL (74-106); Magnesium 1.9 mg/dL (1.6-2.6); Osmolality,Calculated 280 (275-295); Phosphorous 3.7 mg/dL (2.4-5.1); Potassium 4.7 mMol/L (3.4-5.1); Sodium 138 mMol/L (136-145); Total Protein 6.1 gm/dL (5.7-8.2); eGFR > 60 See Note
--- NOTE | 2025-06-09 07:13 | PC.NURSE ---
pt refused to get another iv access, pt educated about the reason he must have 2 iv accesses but he stated that he does not have good veins and that nurses always struggle to find his veins. pharmacy graduate intern and day shift RN were made aware.
--- NOTE | 2025-06-09 08:41 | ESPR_ITS ---
<Statement entered by Naina Sher MD - 06/09/25 11:47> Patient examined at bedside. Overnight telemetry events reported that patient went into heart rate of 150s, he was in atrial fibrillation. Was not started on amiodarone drip but resumed home medications digoxin, diltiazem, metoprolol. Heart rate has improved to 1 20?1 30s. He denies any shortness of breath or chest pain. Dr. Garcia was at bedside as well who evaluated patient. Possibly do incision and drainage of rectal abscess tomorrow as he wanted to wait 48 hours since last dose of his Xarelto. Patient is currently on broad-spectrum antibiotics including IV clindamycin, vancomycin, IV Zosyn. Plan to discontinue clindamycin tomorrow. Follow-up with blood cultures and monitor symptoms. Pain has improved however on physical exam noticeable scrotal swelling. Per surgery recommendations, we will consult urology for the scrotal swelling. Patient is at high risk for Oli's gangrene. BP on soft side. Plan to hold diltiazem and continue metoprolol and digoxin for Afib with RVR. The patient's management plan was discussed with my attending physician Dr. Herbert. Naina Sher, PGY-2 Documentation for date of: 06/09/25 Subjective Subjective Interval history: Mr. Pena is a 65-year-old gentleman with a history of A-fib on Eliquis 5 mg twice daily, heart failure with preserved ejection fraction 55 to 60% on echo done 02/2025, sick sinus, status post pacemaker (follows with Dr. 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 Overnight he had A-fib with RVR heart rate to the 150s restarted on home medications digoxin, diltiazem, metoprolol. Heart rate now 60s to 70s. Patient remains afebrile pain well- controlled on [place]. Per consultation note with Dr. Garcia plans to hold off on surgery in setting of patient on Eliquis his last dose was 06/08 in the a.m. Surgery recommends sitz bath's twice daily. Lactic acid 3.3 up from 2.8 encourage p.o. intake VIOLETA is resolved creatinine 1.1 from 1.4. Continues on broad-spectrum antibiotics clindamycin 900 mg for 48 hours vancomycin and Zosyn. Per Dr. Garcia who recommended consulting with Dr. Rader, urology recommended elevating the scrotum and lower level concern of Oli's gangrene at this time Exam Vital Signs Temp Pulse Resp BP Pulse Ox O2 Del Method 97.2 F 112 H 17 106/78 98 Room Air 06/09/25 07:30 06/09/25 07:30 06/09/25 07:30 06/09/25 07:30 06/09/25 07:30 06/09/25 07:30 Narrative Exam GENERAL: no acute distress, AAO x3, comfortably laying in bed HEENT: Head AT/ NC. Mucous membranes moist. PERRL. NECK: cervical lymphadenopathy palpable CARDIOVASCULAR: Irregularly Irregular, Rate 100s. Normal S1/S2, No m/r/g. No pitting edema of bilateral LEs. Pulses 2 + bilaterally LE RESPIRATORY: CTAB. No wheezing, rhonchi, crackles. GASTROINTESTINAL: Abdomen soft, non tender no palpable masses. Bowel sounds present Fluctuant 3cm area on the right medial glute cleft. mildly tender to palpation, woody consistency. scrotal edema noted, nontender MUSCULOSKELETAL:? No cyanosis or edema, no visible joint swelling. NEUROLOGICAL: CN II-XII grossly intact. No focal deficits. Sensation intact, symmetric. PSYCHIATRIC: Awake and alert, not agitated, normal mood and affect. SKIN: some dry skin noted on pt posterior lowerback and upper buttocks. no jaundice, normal turgor. Objective Labs 06/13/25 05:11 06/13/25 05:11 Labs: Laboratory Results - last 24 hr 06/08/25 06/08/25 06/08/25 14:45 16:50 17:15 WBC 34.5 H RBC 5.15 Hgb 17.0 H Hct 50.5 MCV 98 MCH 33.0 MCHC 33.7 RDW Std Deviation 52.0 H Plt Count 496 H D Neut % (Auto) 87 H Lymph % (Auto) 6 L [place] % (Auto) 5 Eos % (Auto) 0 Baso % (Auto) 1 Neut # (Auto) 30.0 H Lymph # (Auto) 1.9 [place] # (Auto) 1.8 H Eos # (Auto) 0.0 Baso # (Auto) 0.2 Immature Gran # (Auto) 0.58 H Absolute Nucleated RBC 0.00 Immature Gran % 2 H Nucleated RBC % 0 PT 12.0 INR 1.1 APTT 27.2 Sodium 136 Potassium 5.0 Chloride 100 Carbon Dioxide 21.8 Anion Gap 14 BUN 18 Creatinine 1.4 H Estim Creat Clear Calc 66.9 eGFR 55 L BUN/Creatinine Ratio 13 Glucose 146 H Calculated Osmolality 276 Lactic Acid 4.2 H* Calcium 10.0 Corrected Calcium 10.0 Phosphorus 4.0 Magnesium 1.8 Total Bilirubin 0.6 AST 23 ALT 32 Alkaline Phosphatase 173 H Lactate Dehydrogenase 229 C-Reactive Prot, Quant 1.0 H B-Natriuretic Peptide 49 Total Protein 8.0 Albumin 4.5 Globulin 3.5 Albumin/Globulin Ratio 1.3 Procalcitonin 0.10 Ur Collection Type Clean Catch Urine Color Lt-Yellow Urine Clarity Clear Urine pH 6.0 Ur Specific [place] 1.049 H Urine Protein Negative Urine Glucose (UA) Negative Urine Ketones Negative Urine Blood Negative Urine Nitrite Negative Urine Bilirubin Negative Urine Urobilinogen (Auto) Negative Ur Leukocyte Esterase Negative Urine RBC 7 H Urine WBC 1 Ur Squamous Epith Cells 1 Urine Bacteria None Hyaline Casts < 1 Ur Culture Indicated? Not Indicated 06/08/25 06/09/25 06/09/25 18:25 00:00 06:03 WBC 33.5 H RBC 4.58 Hgb 15.1 Hct 45.4 MCV 99 MCH 33.0 MCHC 33.3 RDW Std Deviation 52.8 H Plt Count 352 D Neut % (Auto) 92 H Lymph % (Auto) 4 L [place] % (Auto) 2 Eos % (Auto) 0 Baso % (Auto) 0 Neut # (Auto) 30.8 H Lymph # (Auto) 1.4 [place] # (Auto) 0.7 Eos # (Auto) 0.1 Baso # (Auto) 0.1 Immature Gran # (Auto) 0.40 H Absolute Nucleated RBC 0.00 Immature Gran % 1 H Nucleated RBC % 0 PT INR APTT Sodium 138 Potassium 4.7 Chloride 102 Carbon Dioxide 27.5 Anion Gap 9 BUN 21 Creatinine 1.1 Estim Creat Clear Calc 84.9 eGFR > 60 BUN/Creatinine Ratio 19 Glucose 136 H Calculated Osmolality 280 Lactic Acid 3.2 H 2.8 H 3.3 H Calcium 9.0 Corrected Calcium 9.5 Phosphorus 3.7 Magnesium 1.9 Total Bilirubin 0.9 AST < 10 ALT 18 Alkaline Phosphatase 138 H D Lactate Dehydrogenase C-Reactive Prot, Quant B-Natriuretic Peptide Total Protein 6.1 Albumin 3.4 D Globulin 2.7 Albumin/Globulin Ratio 1.3 Procalcitonin Ur Collection Type Urine Color Urine Clarity Urine pH Ur Specific [place] Urine Protein Urine Glucose (UA) Urine Ketones Urine Blood Urine Nitrite Urine Bilirubin Urine Urobilinogen (Auto) Ur Leukocyte Esterase Urine RBC Urine WBC Ur Squamous Epith Cells Urine Bacteria Hyaline Casts Ur Culture Indicated? Quality Measures Quality Measures VTE prophylaxis Advance care planning discussed with:: patient Assessment & Plan Assessment Current Active Medications: Generic Name Dose Route Start Last Admin Trade Name Freq PRN Reason Stop Dose Admin Acetaminophen 650 mg 06/08/25 18:05 Acetaminophen 325 Mg Tablet PO 07/08/25 18:04 Q6H PRN Fever >101.5 and pain 1-3 Hydrocodone Bitart/Acetaminophen 1 tab 06/08/25 18:05 06/09/25 03:50 Hydrocodone/Apap 5/325 Tablet PO 06/13/25 18:04 1 tab Q4HR PRN Administration PAIN SCALE 4-6 (Moderate Allopurinol 300 mg 06/09/25 09:00 Allopurinol 100 Mg Tablet PO 07/09/25 08:59 DAILY DARLNEE Digoxin 0.125 mg 06/09/25 05:50 06/09/25 05:55 Digoxin 0.125 Mg Tablet PO 07/09/25 05:49 0.125 mg DAILY DARLENE Administration Diltiazem HCl 240 mg 06/09/25 06:00 06/09/25 05:55 Diltiazem Cd 120 Mg Capcr PO 07/09/25 05:59 240 mg Q24H DARLENE Administration Docusate Sodium 100 mg 06/08/25 18:29 Docusate Sod Liqd 100 Mg/10 Ml Udc PO 07/08/25 20:59 BID PRN constipation >2 days wo BM Protocol Lactated Ringer's 1,000 mls @ 85 mls/hr 06/08/25 18:15 06/08/25 19:28 Lactated Ringers IV 06/09/25 17:46 85 mls/hr .[id number] DARLENE Administration Piperacillin/Tazobactam/Dextrose 3.375 gm in 50 mls @ 12.5 mls/hr 06/08/25 22:00 06/09/25 05:11 Zosyn IV 06/15/25 21:59 12.5 mls/hr Q8HR DARLENE Administration Protocol Clindamycin Phosphate 900 mg/ 50 mls @ 50 mls/hr 06/08/25 22:00 06/09/25 05:10 IV Miscellaneous Supplies IV 06/15/25 21:59 50 mls/hr Q8HR DARLENE Administration Vancomycin HCl 250 mls @ 120 mls/hr 06/09/25 10:00 Vancomycin/Water 1250 Mg Ivpb IV 06/16/25 09:59 BID@1000,2200 DARLENE Magnesium Sulfate 2 gm in 50 mls @ 25 mls/hr 06/09/25 08:27 Magnesium Sulfate Ivpb IV 06/09/25 10:26 X1 ONE Lactated Ringer's 1,000 mls @ 100 mls/hr 06/09/25 08:40 Lactated Ringers IV 07/09/25 08:39 .Q10H DARLENE Metoprolol Tartrate 100 mg 06/09/25 08:30 Metoprolol Tartrate 25 Mg Tablet PO 07/09/25 08:29 Q12HR DARLENE Ondansetron HCl 4 mg 06/08/25 18:05 Ondansetron Inj 2 Mg/Ml Inj 2 Ml IVP 07/08/25 18:04 Q6H PRN NAUSEA OR VOMITING Protocol Pharmacy Consult 1 each 06/08/25 18:15 Vancomycin Pharmacy To Dose 1 Each Each IV 07/08/25 18:14 QDAY PRN PROTOCOL Sennosides 1 tab 06/08/25 18:05 Senna Tablet PO 07/08/25 18:04 QDAY PRN constipation Protocol Plan Mr. Pena is a 65-year-old gentleman with a history of A-fib on Eliquis 5 mg twice daily, heart failure with preserved ejection fraction 55 to 60% on echo done 02/2025, sick sinus, status post pacemaker (follows with Dr. 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 pending i and d. R gluteal abscess SOFA score 1 HR >90 (hx afib with rvr), and WBC 34 (pt taking methylprednisolone 4mg qd for #castlemans disease) Dx - CTAP with large abscess on R buttocks extending toward the scrotum - Bcx pending - Lactic acid 4.2-->2.8-->3.3 (encourage PO intake) (continue trending), suspect type a (hypoperfusion) - procalcitonin negative - UA [place] - CRP 1.0 Plan - General surgery consulted, appreciate recs - sitz baths BID - per urology recs, elevate the scrotum. (low level of concern for fourniers) - pending I and D (holding surgery in setting of last elequis dose 06/08 in the AM). - Broad Spectrum Abx -d/c IVF LR 85 cc/hr - Clindamycin 900 mg q8hr for 48 hours total (06/08-06/10) - [facility], pharmacy to dose (06/08- - Zosyn 3.375 q8hr (06/08- - Zosyn 4.5 x 1 #prerenal VIOLETA- resolved Cr: 1.4-->1.1 with baseline 1.0 Ddx: Consider pre vs intra vs post renal etiologies likely prerenal given resolution with fluids. pt reports normal po intake in the past few days. Dx - BUN/Cr ratio: 13, which is <20, so consider - Daily CMP Tx - Avoid nephrotoxic medications - Increased maintenance fluids to 90ml/hr LR Plan - avoid nephrotoxic agents - d/c IVF LR 85 cc/hr - encourage PO intake HFpEF (55-60% 02/2025) Sick sinus s/p pace maker HTN Afib with RVR follows with Dr. Prater EKG with afib with RVR, Rate 150s , restarted on home meds, VSS Plan - Metoprolol tartrate 100 mg BID - Digoxin 0.125 PO qd - Diltiazem 240 mg qd - HOLD lisinopril 20 mg qd - HOLD home elequis 5mg BID - HOLD Bumetadine 1 mg qd ?Asthma on home albuterol 2 puffs q4hr prn - supplemental O2 PRN Castlemans Disease follows with creel operator in [place] pt has been taking methylpred for over 1 year with plan to eventually taper - rituximab infusions [id number] - HOLD methylprednisolone 4mg po qd Arthritis - HOLD methotrexate 15 mg qweekly (monitor folic acid) - allopurinol 300mg qd Dispo: admitted for managment of R glute abcsess, gen surg consulted, plan for i and d, on broad spectrum abx Diet: cardiac diet Mechanical alteration Bowel Reg: senna VTE ppx: SCD, hold home elequis GI ppx: not indicated Code status: FULL Plan discussed with Dr. Sher, Dr Sanz, and Dr. Piedad Dial MD PGY1 Attending Provider Attestation/Addendum I have discussed and was present for the essential components of the history, physical examination, diagnosis, and treatment plan with the resident. I agree with the patient's care as documented by the resident and amended herein by me. Quan Herbert DO. Although this document has been carefully reviewed, there may still be some phonetic and other typographical errors. These errors are purely grammatical due to imperfections in the software program and should not be construed in any way to compromise the substance of the patient's medical care during this visit.
[2025-06-09 09:24] LABS: Reflex Lactate? Y
[2025-06-09 09:52] LABS: Lactic Acid, 3 HR 2.9 mMol/L (0.4-2.0)
[2025-06-09] MEDS: METOPROLOL TARTRATE 25 MG TABLET 100 MG PO ×2 (09:54→21:26)
[2025-06-09] MEDS: Magnesium Sulfate 2 GM Ivpb 2 GM/50 ML BAG IV (09:54)
[2025-06-09] MEDS: VANCOMYCIN/WATER 1250 MG IVPB 250 ML 120 MG IV ×2 (09:54→22:23)
[2025-06-09 12:50] LABS: Lactate (Lactic Acid) 3.9 mMol/L (0.4-2.0)
--- NOTE | 2025-06-09 14:02 | ESPR_ITS ---
Documentation for date of: 06/09/25 Subjective Subjective Brief History: History of present illness revealed that the patient was in his usual health until about 3 days ago when he noticed some tenderness over the right buttock. He did not have much pain he did not have any fever or chills. He has a history of Castleman's disease for which he is getting infusion of monoclonal antibodies called Sylvant. He has been was diagnosed in [place] and subsequently he is receiving this transfusion in [place]. His disease is under control according to the patient. 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 He also has had a right pleural effusion in February of this year. He had a pacemaker implanted for sick sinus syndrome. He has been admitted a few times in the hospital this year and recently for a COVID infection 2 weeks ago Narrative: The patient is still having persistent leukocytosis. But his symptoms are slightly better. His vital signs are normal Exam Vital Signs Temp Pulse Resp BP Pulse Ox O2 Del Method 97.2 F 83 18 111/81 95 Room Air 06/09/25 11:36 06/09/25 12:00 06/09/25 11:36 06/09/25 11:36 06/09/25 11:36 06/09/25 11:36 Routine Rectal Exam Comments: Examination of the perianal area showed no evidence of necrosis or cellulitis or drainage Assessment & Plan Assessment Additional comments: Plan: Cellulitis perineum and perirectal area Plan Plan: We shall arrange for drainage in a day or 2
--- NOTE | 2025-06-09 14:21 | PC.SS ---
Albaro Pena is a 65 year-old male admitted to [facility] for R Glute Abscess. SS conducted bedside contact with the patient to complete initial assessment and to discuss discharge planning. Role and reason explained. Patient confirmed demographic information. Patient identifies his Luana Pena [phone] as his surrogate decision maker. Pt states he is able to complete all ADL?s independent. Pt utilizes a rollator walker when out for appointments. Pts PCP is Deandre Dukes. Pharmacy of choice is [facility]. Discharge options discussed and the pt wishes to return home.? Pt will provide transport. No further intervention required at this time, social insurance adviser would be available to address any further concerns. DC Plan: Home Contact: Luana Address: Confirmed on face sheet PCP: Deandre Dukes (last visit was last week)
--- NOTE | 2025-06-09 14:21 | PC.SS ---
Rounding: on IV ABX, pending Dr. Garcia I&D 06/10, and urology consult DC plan home
[2025-06-09 15:47] LABS: Reflex Lactate? Y
[2025-06-09 16:06] LABS: Lactic Acid, 3 HR 2.7 mMol/L (0.4-2.0)
--- NOTE | 2025-06-09 17:33 | ESCONSULT_ITS ---
RE: SALVADOR GUTIERREZ : 1960 DATE OF CONSULTATION: 06/09/2025 CHIEF COMPLAINT: 1. BPH, not currently on any medication. Denies any prostatic surgery. 2. Swelling of both scrotum. COMORBID CONDITIONS: 1. Gluteal abscess. SOFA score 1. 2. VIOLETA, serum creatinine is 1.4, baseline is 1.0. 3. Atrial fibrillation and sick sinus syndrome, status post placement of pacemaker. 4. Hypertension and Castleman's disease. 5. Obesity. HISTORY OF PRESENT ILLNESS: This is a 65-year-old gentleman. This patient has history of AFib, on Eliquis 5 mg twice a day. He also has history of congestive heart failure with preserved ejection fraction of 55%-60%. He is status post placement of pacemaker. The patient has been seeing gate watchman for the same. This patient had abscess of the gluteal region in the past and posterior knee, which resolved with conservative treatment. ALLERGIES: NONE. Past medical history, family history, review of the system, personal history, please refer to patient's history form dated 06/08/2025, it is in HPI, in EMR. REVIEW OF THE SYSTEM: Denies any fever, chills, nausea, vomiting, diarrhea, constipation or chest pain. Endorses right gluteal pain. No history of hematuria, dysuria or urinary tract infection. PHYSICAL EXAMINATION: GENERAL: Condition is satisfactory, not in acute distress. HEENT: Normocephalic and atraumatic. NECK: Supple. Trachea is central. Thyroid is not enlarged. EXTREMITIES: Revealed no edema, cyanosis or clubbing. CHEST: Symmetrical. HEART: Regular rate and rhythm. ABDOMEN: Obese. No masses. Liver, spleen, and kidney not palpable. No CVA tenderness. RECTAL: Deferred. He had gluteal abscess. GENITALIA: He has swelling of both scrotum, mostly edema. There is no evidence of Oli gangrene. He also has edema of the wall of the scrotum. VARIOUS LABORATORIES: His WBC is 34.5, hemoglobin is 17.0, and hematocrit is 50.5. PLAN: Treat him with antibiotics. Dr. Garcia has already seen the patient. Keep his scrotum elevated. At this time, there is no evidence of Oli gangrene and he also has no urinary problem. He does not need any catheterization. Other than antibiotics from urology point of view, he does not need any further treatment except elevation of the scrotum. DT: 16:29:12 TT: 17:31:00 Ref: [id number] - TID: [id number]
--- NOTE | 2025-06-09 18:15 | PC.NURSE ---
In and Out catheter refused by patient. Bladder scan preformed, patient is not retaining any urine. Patient has also had a good urinary output of 800ml+ throughout shift.
[2025-06-09 18:23] LABS: Lactate (Lactic Acid) 2.9 mMol/L (0.4-2.0)
[2025-06-09 21:22] LABS: Reflex Lactate? Y
[2025-06-09 21:53] LABS: Lactic Acid, 3 HR 3.2 mMol/L (0.4-2.0)
[2025-06-09] MEDS: SODIUM CHLORIDE 0.9% 500 ML 500 ML 150 ML IV (22:32)
[2025-06-10] VITALS (18 sets, daily range): BP systolic 93–145; BP diastolic 53–93; PULSE 69–117; RESP 16–97; TEMP 36–36.6; O2SAT 93–98
[2025-06-10] MEDS: DILTIAZEM CD 120 MG CAPCR 240 MG PO (05:19)
[2025-06-10] MEDS: PIPER/TAZO 3.375 GM PREMIX 3.375 GM/50 ML BAG IV ×3 (05:20→21:07)
[2025-06-10] MEDS: CLINDAMYCIN 900MG IVPB 900 MG in PRE-MIXED 1 BAG 50 MG IV ×3 (05:20→21:07)
[2025-06-10 05:40] LABS: Basophils # (Auto) 0.1 Thou/mm3 (0.0-0.2); Basophils % (Auto) 0 % (0-2.5); Eosinophils # (Auto) 0.1 Thou/mm3 (0.0-0.5); Eosinophils % (Auto) 1 % (0-10); Hematocrit 44.7 % (41.0-53.0); Hemoglobin 15.0 g/dL (13.5-16.0); Immature Granulocytes Auto 0.46 Thou/mm3 (0.00-0.00); Lymphocytes # (Auto) 1.0 Thou/mm3 (1.0-4.8); Lymphocytes % (Auto) 4 % (10-50); Mean Corpuscular HGB Conc 33.6 g/dl (31.0-37.0); Mean Corpuscular Hemoglobin 32.8 pg (25.0-35.0); Mean Corpuscular Volume 98 fL (80-100); Monocytes # (Auto) 0.4 Thou/mm3 (0.0-0.8); Monocytes % (Auto) 2 % (0-12); Neutrophils # (Auto) 22.0 Thou/mm3 (1.8-7.7); Neutrophils % (Auto) 91 % (37-80); Nucleated Red Blood Cell # 0.00 Thou/mm3 (0.00-0.00); Nucleated Red Blood Cell % 0 /100 WBC (0); Platelet Count 221 Thou/mm3 (140-440); RDW Standard Deviation 52.3 fL (35.1-43.9); Red Blood Count 4.58 Miln/mm3 (4.50-5.90); White Blood Count 24.0 Thou/mm3 (3.8-10.6)
[2025-06-10 06:01] LABS: Alanine Aminotransferase 13 U/L (10-49); Albumin, Serum 3.2 gm/dL (3.4-4.8); Albumin/Globulin Ratio 1.2 (1.2-2.2); Alkaline Phosphatase 139 U/L (46-116); Anion Gap 10 (7-16); Aspartate Amino Transferase 10 U/L (0-34); BUN/Creatinine Ratio 21 Ratio (12-20); Bilirubin,Total 0.9 mg/dL (0.3-1.2); Blood Urea Nitrogen 21 mg/dL (9-23); Calcium 8.6 mg/dL (8.3-10.6); Calcium (Corrected) 9.2 mg/dL (8.5-10.1); Carbon Dioxide 23.3 mMol/L (20.0-31.0); Chloride 104 mMol/L (98-107); Creatinine (Component) 1.0 mg/dL (0.6-1.3); Estimated Creatinine Clearance 93.4 mL/min (>60); Globulin 2.6 gm/dL (2.3-3.5); Glucose 145 mg/dL (74-106); Magnesium 2.2 mg/dL (1.6-2.6); Osmolality,Calculated 279 (275-295); Phosphorous 2.8 mg/dL (2.4-5.1); Potassium 4.2 mMol/L (3.4-5.1); Sodium 137 mMol/L (136-145); Total Protein 5.8 gm/dL (5.7-8.2); eGFR > 60 See Note
--- NOTE | 2025-06-10 07:29 | ESPR_ITS ---
<Statement entered by Moe Washington MD - 06/16/25 09:11> I reviewed above note and agree with findings and plans. I have also personally examined the patient with medicine team and went over assessment and plan with medical team including internal security manager and resident physician. <Statement entered by Karli Sanz MD - 06/11/25 15:56> I discussed with and supervised the internal security manager physician who took care of this patient. I personally saw and examined the patient and discussed the assessment and plan with the entire medicine team, including my attending Dr. Washington, I agree with most of the assessment and plan as documented below Karli Sanz M.D. PGY-3 Documentation for date of: 06/10/25 Subjective Subjective Interval history: Mr. Pena is a 65-year-old gentleman with a history of A-fib on Eliquis 5 mg twice daily, heart failure with preserved ejection fraction 55 to 60% on echo done 02/2025, sick sinus, status post pacemaker (follows with Dr. 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 Overnight he had A-fib with RVR heart rate to the 150s restarted on home medications digoxin, diltiazem, metoprolol. Heart rate now 60s to 70s. Patient remains afebrile pain well- controlled on [place]. Per consultation note with Dr. Garcia plans to hold off on surgery in setting of patient on Eliquis his last dose was 06/08 in the a.m. Surgery recommends sitz bath's twice daily. Lactic acid 3.3 up from 2.8 encourage p.o. intake VIOLETA is resolved creatinine 1.1 from 1.4. Continues on broad-spectrum antibiotics clindamycin 900 mg for 48 hours vancomycin and Zosyn. Per Dr. Garcia who recommended consulting with Dr. Rader, urology recommended elevating the scrotum and lower level concern of Oli's gangrene at this time 06/10/2025: Patient seen and examined at bedside. This morning blood pressure was noted to be a bit soft in the 90s systolic held diltiazem and digoxin metoprolol. Heart rate remains in the 100 patient remains afebrile. In setting of upcoming surgery patient is n.p.o. IV morphine 2 mg every 4 hours as needed, today is the last day of clindamycin 900 mg. Continue elevating scrotum till surgery. Plan to follow-up with Dr. Garcia for postsurgery recommendations. Exam Vital Signs Temp Pulse Resp BP Pulse Ox O2 Del Method 96.8 F 100 18 110/74 93 L Room Air 06/10/25 04:00 06/10/25 05:19 06/10/25 04:00 06/10/25 05:19 06/10/25 04:00 06/10/25 04:00 Narrative Exam GENERAL: no acute distress, AAO x3, comfortably laying in bed HEENT: Head AT/ NC. Mucous membranes moist. PERRL. NECK: cervical lymphadenopathy palpable CARDIOVASCULAR: Irregularly Irregular, Rate 100s. Normal S1/S2, No m/r/g. No pitting edema of bilateral LEs. Pulses 2 + bilaterally LE RESPIRATORY: CTAB. No wheezing, rhonchi, crackles. GASTROINTESTINAL: Abdomen soft, non tender no palpable masses. Bowel sounds present Fluctuant 3cm area on the right medial glute cleft. mildly tender to palpation, woody consistency. scrotal edema noted, nontender MUSCULOSKELETAL:? No cyanosis or edema, no visible joint swelling. NEUROLOGICAL: CN II-XII grossly intact. No focal deficits. Sensation intact, symmetric. PSYCHIATRIC: Awake and alert, not agitated, normal mood and affect. SKIN: some dry skin noted on pt posterior lowerback and upper buttocks. no jaundice, normal turgor. Objective Labs 06/10/25 04:27 06/10/25 04:27 Labs: Laboratory Results - last 24 hr 06/09/25 06/09/25 06/09/25 09:45 12:28 15:58 WBC RBC Hgb Hct MCV MCH MCHC RDW Std Deviation Plt Count Neut % (Auto) Lymph % (Auto) [place] % (Auto) Eos % (Auto) Baso % (Auto) Neut # (Auto) Lymph # (Auto) [place] # (Auto) Eos # (Auto) Baso # (Auto) Immature Gran # (Auto) Absolute Nucleated RBC Immature Gran % Nucleated RBC % Sodium Potassium Chloride Carbon Dioxide Anion Gap BUN Creatinine Estim Creat Clear Calc eGFR BUN/Creatinine Ratio Glucose Calculated Osmolality Lactic Acid 2.9 H 3.9 H 2.7 H Calcium Corrected Calcium Phosphorus Magnesium Total Bilirubin AST ALT Alkaline Phosphatase Total Protein Albumin Globulin Albumin/Globulin Ratio 06/09/25 06/09/25 06/10/25 18:12 21:35 04:27 WBC 24.0 H D RBC 4.58 Hgb 15.0 Hct 44.7 MCV 98 MCH 32.8 MCHC 33.6 RDW Std Deviation 52.3 H Plt Count 221 D Neut % (Auto) 91 H Lymph % (Auto) 4 L [place] % (Auto) 2 Eos % (Auto) 1 Baso % (Auto) 0 Neut # (Auto) 22.0 H Lymph # (Auto) 1.0 [place] # (Auto) 0.4 Eos # (Auto) 0.1 Baso # (Auto) 0.1 Immature Gran # (Auto) 0.46 H Absolute Nucleated RBC 0.00 Immature Gran % 2 H Nucleated RBC % 0 Sodium 137 Potassium 4.2 D Chloride 104 Carbon Dioxide 23.3 Anion Gap 10 BUN 21 Creatinine 1.0 Estim Creat Clear Calc 93.4 eGFR > 60 BUN/Creatinine Ratio 21 H Glucose 145 H Calculated Osmolality 279 Lactic Acid 2.9 H 3.2 H Calcium 8.6 Corrected Calcium 9.2 Phosphorus 2.8 Magnesium 2.2 Total Bilirubin 0.9 AST 10 ALT 13 Alkaline Phosphatase 139 H Total Protein 5.8 Albumin 3.2 L Globulin 2.6 Albumin/Globulin Ratio 1.2 Quality Measures Quality Measures VTE prophylaxis Advance care planning discussed with:: patient and spouse Assessment & Plan Assessment Current Active Medications: Generic Name Dose Route Start Last Admin Trade Name Gladys PRN Reason Stop Dose Admin Acetaminophen 650 mg 06/08/25 18:05 Acetaminophen 325 Mg Tablet PO 07/08/25 18:04 Q6H PRN Fever >101.5 and pain 1-3 Hydrocodone Bitart/Acetaminophen 1 tab 06/08/25 18:05 06/09/25 18:00 Hydrocodone/Apap 5/325 Tablet PO 06/13/25 18:04 1 tab Q4HR PRN Administration PAIN SCALE 4-6 (Moderate Allopurinol 300 mg 06/09/25 09:00 06/09/25 09:55 Allopurinol 100 Mg Tablet PO 07/09/25 08:59 300 mg DAILY DARLENE Administration Digoxin 0.125 mg 06/09/25 05:50 06/09/25 09:55 Digoxin 0.125 Mg Tablet PO 07/09/25 05:49 0.125 mg DAILY DARLENE Administration Diltiazem HCl 240 mg 06/09/25 06:00 06/10/25 05:19 Diltiazem Cd 120 Mg Capcr PO 07/09/25 05:59 240 mg Q24H DARLENE Administration Docusate Sodium 100 mg 06/08/25 18:29 Docusate Sod Liqd 100 Mg/10 Ml Udc PO 07/08/25 20:59 BID PRN constipation >2 days wo BM Protocol Piperacillin/Tazobactam/Dextrose 3.375 gm in 50 mls @ 12.5 mls/hr 06/08/25 22:00 06/10/25 05:20 Zosyn IV 06/15/25 21:59 12.5 mls/hr Q8HR DARLENE Administration Protocol Clindamycin Phosphate 900 mg/ 50 mls @ 50 mls/hr 06/08/25 22:00 06/10/25 05:20 IV Miscellaneous Supplies IV 06/15/25 21:59 50 mls/hr Q8HR DARLENE Administration Vancomycin HCl 250 mls @ 120 mls/hr 06/09/25 10:00 06/09/25 22:23 Vancomycin/Water 1250 Mg Ivpb IV 06/16/25 09:59 120 mls/hr BID@1000,2200 DARLENE Administration Metoprolol Tartrate 100 mg 06/09/25 08:30 06/09/25 21:26 Metoprolol Tartrate 25 Mg Tablet PO 07/09/25 08:29 100 mg Q12HR DARLENE Administration Morphine Sulfate 2 mg 06/10/25 07:28 Morphine Sulf Inj 4 Mg/Ml Vial IVP 06/10/25 07:29 X1 ONE Ondansetron HCl 4 mg 06/08/25 18:05 Ondansetron Inj 2 Mg/Ml Inj 2 Ml IVP 07/08/25 18:04 Q6H PRN NAUSEA OR VOMITING Protocol Pharmacy Consult 1 each 06/08/25 18:15 Vancomycin Pharmacy To Dose 1 Each Each IV 07/08/25 18:14 QDAY PRN PROTOCOL Sennosides 1 tab 06/08/25 18:05 Senna Tablet PO 07/08/25 18:04 QDAY PRN constipation Protocol Plan Mr. Pena is a 65-year-old gentleman with a history of A-fib on Eliquis 5 mg twice daily, heart failure with preserved ejection fraction 55 to 60% on echo done 02/2025, sick sinus, status post pacemaker (follows with Dr. 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 pending i and d. R gluteal abscess SOFA score 1 HR >90 (hx afib with rvr), and WBC 34 (pt taking methylprednisolone 4mg qd for #castlemans disease): now downtrending Dx - CTAP with large abscess on R buttocks extending toward the scrotum - Bcx NGTD @ 24 hrs - Lactic acid 4.2-->2.8-->3.3 (encourage PO intake) (continue trending), suspect type a (hypoperfusion) - procalcitonin negative - UA [place] - CRP 1.0 Plan - General surgery consulted, appreciate recs - sitz baths BID - per urology recs, elevate the scrotum. (low level of concern for fourniers) - pending I and D (holding surgery in setting of last elequis dose 06/08 in the AM). - Broad Spectrum Abx -d/c IVF LR 85 cc/hr - Clindamycin 900 mg q8hr for 48 hours total (06/08-06/10) - [facility], pharmacy to dose (06/08- - Zosyn 3.375 q8hr (06/08- - Zosyn 4.5 x 1 #prerenal VIOLETA- resolved Cr: 1.4-->1.1 with baseline 1.0 Ddx: Consider pre vs intra vs post renal etiologies likely prerenal given resolution with fluids. pt reports normal po intake in the past few days. Dx - BUN/Cr ratio: 13, which is <20, so consider - Daily CMP Tx - Avoid nephrotoxic medications - Increased maintenance fluids to 90ml/hr LR Plan - avoid nephrotoxic agents - d/c IVF LR 85 cc/hr - encourage PO intake HFpEF (55-60% 02/2025) Sick sinus s/p pace maker HTN Afib with RVR follows with Dr. Prater EKG with afib with RVR, Rate 150s , restarted on home meds, VSS Plan - Metoprolol tartrate 100 mg BID - Digoxin 0.125 PO qd (hold if BP soft) - Diltiazem 240 mg qd (hold if bp soft) - HOLD lisinopril 20 mg qd - HOLD home elequis 5mg BID - HOLD Bumetadine 1 mg qd ?Asthma on home albuterol 2 puffs q4hr prn - supplemental O2 PRN Castlemans Disease follows with supervisor drying in [place] pt has been taking methylpred for over 1 year with plan to eventually taper - rituximab infusions [id number] - HOLD methylprednisolone 4mg po qd Arthritis - HOLD methotrexate 15 mg qweekly (monitor folic acid) - allopurinol 300mg qd Dispo: admitted for managment of R glute abcsess, gen surg consulted, plan for i and d, on broad spectrum abx Diet: cardiac diet Mechanical alteration Bowel Reg: senna VTE ppx: SCD, hold home elequis GI ppx: not indicated Code status: FULL Plan discussed with Dr Sanz, and Dr. Felix Dial MD PGY1
[2025-06-10] MEDS: MORPHINE SULF INJ 4 MG/ML VIAL 2 MG IVP ×2 (07:43→14:04)
[2025-06-10 10:09] LABS: Vancomycin,Trough 12.2 mcg/mL (5.0-10.0)
[2025-06-10] MEDS: VANCOMYCIN/WATER 1250 MG IVPB 250 ML 120 MG IV ×2 (10:26→22:21)
[2025-06-10] MEDS: RINGERS LACTATED 1000 ML 1,000 ML 85 ML IV (10:27)
--- NOTE | 2025-06-10 15:27 | PC.SS ---
Rounding note: Patient is on IV abx, surgery today, urology onboard. Dicharge plan: Home
--- NOTE | 2025-06-10 17:32 | PD.SUROPNT ---
Date of Procedure 06/10/25 Pre Op Diagnosis Large ischiorectal abscess extending into the perineum onto the scrotum Post Op Diagnosis Same Procedure Incision and drainage of the large ischiorectal abscess Findings Patient was found to have extensive inflammation of the perirectal area extending into the perineum Procedure Description After the patient was brought to the operating room endotracheal anesthesia was given. Then he was kept in lithotomy position and his buttocks were lifted up. Moura catheter was inserted to avoid injury to the urethra because perineal area had to be incised and drained. Timeout was performed after draping. Then I made incision over the right buttock and extensive amount of purulent material was drained. This was at least with 300 cc of thick foul-smelling purulent material. Then I used the finger and extended it towards the perineum and more purulent material was drained. Then extensive irrigation was carried out and the wound was packed with 1 inch iodoform gauze fluff and a dressing was given. Patient tolerated the procedure well. Anesthesia GETA Pathology / specimen None Estimated Blood Loss 100 Surgeon Ruby Vazquez MD Surgical Staff Operation Date: 06/10/25 18:45 <No data on this case meets the specified criteria>
--- NOTE | 2025-06-10 17:39 | SUR.PHASEI ---
Arrived to [facility] via [facility] [place]. Report received from Sandoval MCCONNELL and Dr. Keller. Resting with eyes closed but responding to questions and commands appropriately. No c/o pain or discomfort. No s/o distress.
--- NOTE | 2025-06-10 18:08 | SUR.PHASEI ---
Report given to Estelle Jasmine RN med/surg. Taken to room 376 via [facility] by Sandi MCCONNELL. No c/o pain or discomfort. Tolerated ice chips PO. Responding to questions and commands appropriately. Dressing to buttocks remain C/D/I.
[2025-06-10] MEDS: MORPHINE SULF INJ 4 MG/ML VIAL 5 MG IVP ×2 (19:49→23:45)
[2025-06-10] MEDS: METOPROLOL TARTRATE 25 MG TABLET 100 MG PO (20:26)
[2025-06-11] VITALS (13 sets, daily range): BP systolic 112–157; BP diastolic 64–87; PULSE 75–103; RESP 17–96; TEMP 35.6–36.4; O2SAT 95–97; BMI 32.2
[2025-06-11] MEDS: RINGERS LACTATED 1000 ML 1,000 ML 85 ML IV (00:42)
[2025-06-11] MEDS: MORPHINE SULF INJ 4 MG/ML VIAL 5 MG IVP ×2 (04:06→09:15)
--- NOTE | 2025-06-11 05:21 | PC.NURSE ---
Addendum entered by Gretta Price RN 06/11/25 05:24: Heart rate is 89. Original Note: MD Gomez made aware of pt's BP 114/74 and Heart Rate, said okay to hold Cardizem.
[2025-06-11] MEDS: CLINDAMYCIN 900MG IVPB 900 MG in PRE-MIXED 1 BAG 50 MG IV (05:25)
[2025-06-11] MEDS: PIPER/TAZO 3.375 GM PREMIX 3.375 GM/50 ML BAG IV ×3 (05:25→22:03)
[2025-06-11 06:11] LABS: Basophils # (Auto) 0.1 Thou/mm3 (0.0-0.2); Basophils % (Auto) 0 % (0-2.5); Eosinophils # (Auto) 0.0 Thou/mm3 (0.0-0.5); Eosinophils % (Auto) 0 % (0-10); Hematocrit 41.5 % (41.0-53.0); Hemoglobin 14.1 g/dL (13.5-16.0); Immature Granulocytes Auto 0.74 Thou/mm3 (0.00-0.00); Lymphocytes # (Auto) 0.9 Thou/mm3 (1.0-4.8); Lymphocytes % (Auto) 4 % (10-50); Mean Corpuscular HGB Conc 34.0 g/dl (31.0-37.0); Mean Corpuscular Hemoglobin 33.2 pg (25.0-35.0); Mean Corpuscular Volume 98 fL (80-100); Monocytes # (Auto) 0.4 Thou/mm3 (0.0-0.8); Monocytes % (Auto) 2 % (0-12); Neutrophils # (Auto) 18.9 Thou/mm3 (1.8-7.7); Neutrophils % (Auto) 90 % (37-80); Nucleated Red Blood Cell # 0.00 Thou/mm3 (0.00-0.00); Nucleated Red Blood Cell % 0 /100 WBC (0); Platelet Count 172 Thou/mm3 (140-440); RDW Standard Deviation 51.0 fL (35.1-43.9); Red Blood Count 4.25 Miln/mm3 (4.50-5.90); White Blood Count 21.0 Thou/mm3 (3.8-10.6)
[2025-06-11 06:52] LABS: Alanine Aminotransferase 9 U/L (10-49); Albumin, Serum 3.2 gm/dL (3.4-4.8); Albumin/Globulin Ratio 1.3 (1.2-2.2); Alkaline Phosphatase 129 U/L (46-116); Anion Gap 9 (7-16); Aspartate Amino Transferase < 10 U/L (0-34); BUN/Creatinine Ratio 18 Ratio (12-20); Bilirubin,Total 0.6 mg/dL (0.3-1.2); Blood Urea Nitrogen 14 mg/dL (9-23); Calcium 8.9 mg/dL (8.3-10.6); Calcium (Corrected) 9.5 mg/dL (8.5-10.1); Carbon Dioxide 23.7 mMol/L (20.0-31.0); Chloride 103 mMol/L (98-107); Creatinine (Component) 0.8 mg/dL (0.6-1.3); Estimated Creatinine Clearance 116.7 mL/min (>60); Globulin 2.4 gm/dL (2.3-3.5); Glucose 174 mg/dL (74-106); Magnesium 1.8 mg/dL (1.6-2.6); Osmolality,Calculated 276 (275-295); Phosphorous 3.4 mg/dL (2.4-5.1); Potassium 4.6 mMol/L (3.4-5.1); Sodium 136 mMol/L (136-145); Total Protein 5.6 gm/dL (5.7-8.2); eGFR > 60 See Note
[2025-06-11] MEDS: VANCOMYCIN/D5W 1,250 MG IVPB 250 ML 120 MG IV ×2 (09:14→23:02)
[2025-06-11] MEDS: METOPROLOL TARTRATE 25 MG TABLET 100 MG PO ×2 (09:15→22:02)
[2025-06-11] MEDS: DIGOXIN 0.125 MG TABLET PO (09:15)
--- NOTE | 2025-06-11 12:43 | PC.SS ---
SS follow up note; Patient is having an IND today. White counts being monitored. Patient will discharge home when medically cleared.
--- NOTE | 2025-06-11 14:48 | ESPR_ITS ---
<Statement entered by Moe Washington MD - 06/19/25 17:35> I reviewed above note and agree with findings and plans. I have also personally examined the patient with medicine team and went over assessment and plan with medical team including music industry intern and resident physician. Documentation for date of: 06/11/25 Subjective Subjective Interval history: Patient examined at bedside. No events overnight. States that his pain from abscess has significantly improved. Patient is status post Incision and drainage of large ischiorectal abscess. Patient was found to have extensive inflammation of the perirectal area extending into the perineum. Decrease IV morphine from 5mg q4hr to 2mg q4hr for pain and transition to PO in preperation for discharge. WBC downtrending to 21, VIOLETA resolved with Cr 0.08. Final wound culture are pending. Continue Vanc/Zosyn with scortal elevation to reduce swelling. Continue Digoxin, diltiazem, and metoprolol tartrate 100mg BID for Afib with RVR. Rate is well controlled at this time. Will likely need HH with wound care at hi. Exam Vital Signs Temp Pulse Resp BP Pulse Ox O2 Del Method O2 Flow Rate 96.1 F L 91 18 122/83 97 Room Air 3 06/11/25 11:50 06/11/25 12:46 06/11/25 11:50 06/11/25 11:50 06/11/25 11:50 06/11/25 11:50 06/10/25 17:49 Narrative Exam GENERAL: no acute distress, AAO x3, comfortably laying in bed HEENT: Head AT/ NC. Mucous membranes moist. PERRL. NECK: cervical lymphadenopathy palpable CARDIOVASCULAR: Irregularly Irregular, Rate 100s. Normal S1/S2, No m/r/g. No pitting edema of bilateral LEs. Pulses 2 + bilaterally LE RESPIRATORY: CTAB. No wheezing, rhonchi, crackles. GASTROINTESTINAL: Abdomen soft, non tender no palpable masses. Bowel sounds present. Apparent bleeding, has dressing over area of I&D. : scrotal swelling is resolving, non tender MUSCULOSKELETAL:? No cyanosis or edema, no visible joint swelling. NEUROLOGICAL: CN II-XII grossly intact. No focal deficits. Sensation intact, symmetric. PSYCHIATRIC: Awake and alert, not agitated, normal mood and affect. SKIN:. no jaundice, normal turgor. No lesions Objective Labs 06/11/25 05:26 06/11/25 05:26 Labs: Laboratory Results - last 24 hr 06/11/25 05:26 WBC 21.0 H RBC 4.25 L Hgb 14.1 Hct 41.5 MCV 98 MCH 33.2 MCHC 34.0 RDW Std Deviation 51.0 H Plt Count 172 D Neut % (Auto) 90 H Lymph % (Auto) 4 L [place] % (Auto) 2 Eos % (Auto) 0 Baso % (Auto) 0 Neut # (Auto) 18.9 H Lymph # (Auto) 0.9 L [place] # (Auto) 0.4 Eos # (Auto) 0.0 Baso # (Auto) 0.1 Immature Gran # (Auto) 0.74 H Absolute Nucleated RBC 0.00 Immature Gran % 4 H Nucleated RBC % 0 Sodium 136 Potassium 4.6 Chloride 103 Carbon Dioxide 23.7 Anion Gap 9 BUN 14 Creatinine 0.8 Estim Creat Clear Calc 116.7 eGFR > 60 BUN/Creatinine Ratio 18 Glucose 174 H Calculated Osmolality 276 Calcium 8.9 Corrected Calcium 9.5 Phosphorus 3.4 Magnesium 1.8 Total Bilirubin 0.6 AST < 10 ALT 9 L Alkaline Phosphatase 129 H Total Protein 5.6 L Albumin 3.2 L Globulin 2.4 Albumin/Globulin Ratio 1.3 Quality Measures Quality Measures VTE prophylaxis Advance care planning discussed with:: patient Assessment & Plan Assessment Current Active Medications: Generic Name Dose Route Start Last Admin Trade Name Freq PRN Reason Stop Dose Admin Acetaminophen 650 mg 06/08/25 18:05 Acetaminophen 325 Mg Tablet PO 07/08/25 18:04 Q6H PRN Fever >101.5 and pain 1-3 Hydrocodone Bitart/Acetaminophen 1 tab 06/08/25 18:05 06/09/25 18:00 Hydrocodone/Apap 5/325 Tablet PO 06/13/25 18:04 1 tab Q4HR PRN Administration PAIN SCALE 4-6 (Moderate Albuterol/Ipratropium 3 ml 06/10/25 14:46 Albuterol/Ipratropium (Duoneb) Rt Dominique 3 Ml Nebu INH 07/10/25 14:45 Q4HRRT PRN WHEEZING Allopurinol 300 mg 06/09/25 09:00 06/11/25 09:15 Allopurinol 100 Mg Tablet PO 07/09/25 08:59 300 mg DAILY DARLENE Administration Digoxin 0.125 mg 06/09/25 05:50 06/11/25 09:15 Digoxin 0.125 Mg Tablet PO 07/09/25 05:49 0.125 mg DAILY DARLENE Administration Diltiazem HCl 240 mg 06/09/25 06:00 06/11/25 05:22 Diltiazem Cd 120 Mg Capcr PO 07/09/25 05:59 Not Given Q24H DARLENE Docusate Sodium 100 mg 06/08/25 18:29 Docusate Sod Liqd 100 Mg/10 Ml Udc PO 07/08/25 20:59 BID PRN constipation >2 days wo BM Protocol Piperacillin/Tazobactam/Dextrose 3.375 gm in 50 mls @ 12.5 mls/hr 06/08/25 22:00 06/11/25 05:25 Zosyn IV 06/15/25 21:59 12.5 mls/hr Q8HR DARLENE Administration Protocol Vancomycin HCl/Dextrose 250 mls @ 120 mls/hr 06/11/25 10:00 06/11/25 09:14 Vancomycin/D5w 1,250 Mg Ivpb IV 06/18/25 09:59 120 mls/hr BID@1000,2200 DARLENE Administration Protocol Metoprolol Tartrate 100 mg 06/09/25 08:30 06/11/25 09:15 Metoprolol Tartrate 25 Mg Tablet PO 07/09/25 08:29 100 mg Q12HR DARLENE Administration Morphine Sulfate 5 mg 06/10/25 17:36 06/11/25 09:15 Morphine Sulf Inj 4 Mg/Ml Vial IVP 06/15/25 13:46 5 mg Q4HR PRN Administration PAIN 7-10 Ondansetron HCl 4 mg 06/10/25 14:46 Ondansetron Inj 2 Mg/Ml Inj 2 Ml IVP 07/10/25 14:45 Q4H PRN NAUSEA Pharmacy Consult 1 each 06/08/25 18:15 Vancomycin Pharmacy To Dose 1 Each Each IV 07/08/25 18:14 QDAY PRN PROTOCOL Sennosides 1 tab 06/08/25 18:05 Senna Tablet PO 07/08/25 18:04 QDAY PRN constipation Protocol Plan Mr. Pena is a 65-year-old gentleman with a history of A-fib on Eliquis 5 mg twice daily, heart failure with preserved ejection fraction 55 to 60% on echo done 02/2025, sick sinus, status post pacemaker (follows with Dr. 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 pending i and d. #Right ischiorectal abscess #s/p Incision and drainage of large ischiorectal abscess SOFA score 1 HR >90 (hx afib with rvr), and WBC 34 (pt taking methylprednisolone 4mg qd for #castlemans disease): now downtrending Dx - CTAP with large abscess on R buttocks extending toward the scrotum - Bcx NGTD @ 24 hrs - Lactic acid 4.2-->2.8-->3.3 (encourage PO intake) (continue trending), suspect type a (hypoperfusion) - procalcitonin negative - UA [place] - CRP 1.0 on admission Plan - General surgery consulted, appreciate recs--06/10 had I&D of ischiorectal abscess. - sitz baths BID - per urology recs, elevate the scrotum. (low level of concern for fourniers) - Clindamycin 900 mg q8hr for 48 hours total (06/08-06/10) - [facility], pharmacy to dose (06/08- - Zosyn 3.375 q8hr (06/08- -hold Eliquis yet due to active bleeding -wound care referral #prerenal VIOLETA- resolved Cr: 1.4-->1.1 with baseline 1.0 Ddx: Consider pre vs intra vs post renal etiologies likely prerenal given resolution with fluids. pt reports normal po intake in the past few days. Dx - BUN/Cr ratio: 13, which is <20, so consider - Daily CMP Tx - Avoid nephrotoxic medications - Increased maintenance fluids to 90ml/hr LR Plan - avoid nephrotoxic agents - d/c IVF LR 85 cc/hr - encourage PO intake HFpEF (55-60% 02/2025) Sick sinus s/p pace maker HTN Afib with RVR follows with Dr. Prater EKG with afib with RVR, Rate 150s , restarted on home meds, VSS Plan - Metoprolol tartrate 100 mg BID - Digoxin 0.125 PO qd (hold if BP soft) - Diltiazem 240 mg qd (hold if bp soft) - HOLD lisinopril 20 mg qd - HOLD home elequis 5mg BID - HOLD Bumetadine 1 mg qd ?Asthma on home albuterol 2 puffs q4hr prn - supplemental O2 PRN Castlemans Disease follows with principal architect in [place] pt has been taking methylpred for over 1 year with plan to eventually taper - rituximab infusions [id number] - HOLD methylprednisolone 4mg po qd Arthritis - HOLD methotrexate 15 mg qweekly (monitor folic acid) - allopurinol 300mg qd Dispo: admitted for managment of R glute abcsess, s/p Incision and drainage of large ischiorectal abscess day 1 Diet: cardiac diet Mechanical alteration Bowel Reg: senna VTE ppx: SCD, hold home elequis GI ppx: not indicated Code status: FULL The patient's management plan was discussed with my attending physician Dr. Washington. Naina Sher, PGY-2
[2025-06-11] MEDS: MORPHINE SULF INJ 4 MG/ML VIAL 2 MG IVP ×3 (15:09→23:10)
--- NOTE | 2025-06-11 15:13 | PD.SURPROG ---
Documentation for date of: 06/11/25 Subjective Subjective Brief History: History of present illness revealed that the patient was in his usual health until about 3 days ago when he noticed some tenderness over the right buttock. He did not have much pain he did not have any fever or chills. He has a history of Castleman's disease for which he is getting infusion of monoclonal antibodies called Sylvant. He has been was diagnosed in [place] and subsequently he is receiving this transfusion in [place]. His disease is under control according to the patient. 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 He also has had a right pleural effusion in February of this year. He had a pacemaker implanted for sick sinus syndrome. He has been admitted a few times in the hospital this year and recently for a COVID infection 2 weeks ago Narrative: The patient is feeling much better today after the drainage of the abscess. He also feels better over the scrotal swelling Exam Vital Signs Temp Pulse Resp BP Pulse Ox O2 Del Method O2 Flow Rate 96.1 F L 91 18 122/83 97 Room Air 3 06/11/25 11:50 06/11/25 12:46 06/11/25 11:50 06/11/25 11:50 06/11/25 11:50 06/11/25 11:50 06/10/25 17:49 His vital signs are normal other than mild tachycardia Routine Rectal Exam Comments: Rectal examination revealed very minimal drainage at the site of packing Results Results: Laboratory Laboratory Narrative: Laboratory results show the WBC is coming down towards normal level even though it is still high around 21,000 Assessment & Plan Assessment Additional comments: Impression: Stable postoperative course following drainage of the abscess in the right buttock in the perineum Plan Plan: We shall keep the patient for at least another 48 hours with IV antibiotics and dressing change. Then we can refer him to the wound care for further management. PROCEDURES: Procedures Incision and drainage of the large ischiorectal abscess
[2025-06-11 22:13] LABS: Vancomycin,Trough 13.8 mcg/mL (5.0-10.0)
[2025-06-12] VITALS (15 sets, daily range): BP systolic 109–125; BP diastolic 70–90; PULSE 75–113; RESP 16–98; TEMP 36.1–36.4; O2SAT 94–98
--- NOTE | 2025-06-12 01:15 | PC.NURSE ---
iv site to right forearm infiltrated and swollen- elevated right arm with pillow and applied ice compress.
[2025-06-12 05:11] LABS: Basophils # (Auto) 0.1 Thou/mm3 (0.0-0.2); Basophils % (Auto) 0 % (0-2.5); Eosinophils # (Auto) 0.0 Thou/mm3 (0.0-0.5); Eosinophils % (Auto) 0 % (0-10); Hematocrit 36.6 % (41.0-53.0); Hemoglobin 12.3 g/dL (13.5-16.0); Immature Granulocytes Auto 0.20 Thou/mm3 (0.00-0.00); Lymphocytes # (Auto) 1.3 Thou/mm3 (1.0-4.8); Lymphocytes % (Auto) 9 % (10-50); Mean Corpuscular HGB Conc 33.6 g/dl (31.0-37.0); Mean Corpuscular Hemoglobin 32.4 pg (25.0-35.0); Mean Corpuscular Volume 96 fL (80-100); Monocytes # (Auto) 0.7 Thou/mm3 (0.0-0.8); Monocytes % (Auto) 5 % (0-12); Neutrophils # (Auto) 12.2 Thou/mm3 (1.8-7.7); Neutrophils % (Auto) 84 % (37-80); Nucleated Red Blood Cell # 0.00 Thou/mm3 (0.00-0.00); Nucleated Red Blood Cell % 0 /100 WBC (0); Platelet Count 172 Thou/mm3 (140-440); RDW Standard Deviation 49.6 fL (35.1-43.9); Red Blood Count 3.80 Miln/mm3 (4.50-5.90); White Blood Count 14.5 Thou/mm3 (3.8-10.6)
[2025-06-12] MEDS: PIPER/TAZO 3.375 GM PREMIX 3.375 GM/50 ML BAG IV ×3 (05:12→23:02)
[2025-06-12] MEDS: DILTIAZEM CD 120 MG CAPCR 240 MG PO (05:12)
[2025-06-12 05:52] LABS: Alanine Aminotransferase 7 U/L (10-49); Albumin, Serum 3.1 gm/dL (3.4-4.8); Albumin/Globulin Ratio 1.5 (1.2-2.2); Alkaline Phosphatase 110 U/L (46-116); Anion Gap 9 (7-16); Aspartate Amino Transferase < 10 U/L (0-34); BUN/Creatinine Ratio 20 Ratio (12-20); Bilirubin,Total 0.7 mg/dL (0.3-1.2); Blood Urea Nitrogen 16 mg/dL (9-23); Calcium 8.6 mg/dL (8.3-10.6); Calcium (Corrected) 9.3 mg/dL (8.5-10.1); Carbon Dioxide 26.2 mMol/L (20.0-31.0); Chloride 103 mMol/L (98-107); Creatinine (Component) 0.8 mg/dL (0.6-1.3); Estimated Creatinine Clearance 114.9 mL/min (>60); Globulin 2.1 gm/dL (2.3-3.5); Glucose 127 mg/dL (74-106); Magnesium 1.6 mg/dL (1.6-2.6); Osmolality,Calculated 278 (275-295); Phosphorous 3.4 mg/dL (2.4-5.1); Potassium 3.9 mMol/L (3.4-5.1); Sodium 138 mMol/L (136-145); Total Protein 5.2 gm/dL (5.7-8.2); eGFR > 60 See Note
[2025-06-12] MEDS: MORPHINE SULF INJ 4 MG/ML VIAL 2 MG IVP ×4 (08:05→21:25)
[2025-06-12] MEDS: HYDROmorphone INJ 2 MG/ML VIAL 0.5 MG IVP (09:21)
[2025-06-12] MEDS: Magnesium Sulfate 4 GM Ivpb 4 GM/50 ML BAG IV (09:22)
[2025-06-12] MEDS: DIGOXIN 0.125 MG TABLET PO (09:23)
[2025-06-12] MEDS: METOPROLOL TARTRATE 25 MG TABLET 100 MG PO ×2 (09:23→20:52)
[2025-06-12] MEDS: VANCOMYCIN/D5W 1,250 MG IVPB 250 ML 120 MG IV ×2 (09:30→20:52)
--- NOTE | 2025-06-12 10:39 | ESPR_ITS ---
<Statement entered by Moe Washington MD - 06/19/25 17:36> I reviewed above note and agree with findings and plans. I have also personally examined the patient with medicine team and went over assessment and plan with medical team including international accountant and resident physician. <Statement entered by Karli Sanz MD - 06/12/25 16:06> I discussed with and supervised the international accountant physician who took care of this patient. I personally saw and examined the patient and discussed the assessment and plan with the entire medicine team, including my attending Dr. Washington, I agree with most of the assessment and plan as documented below Karli Sanz M.D. PGY-3 Disclaimer: Despite multiple revisions, due to the dictation software being used, the document bellow may not be free of grammatical errors including phonetic/typographic errors. However, this does not deter from our commitment to providing health care in the patient's best interest in mind. Documentation for date of: 06/12/25 Subjective Subjective Interval history: Mr. Pena is a 65-year-old gentleman with a history of A-fib on Eliquis 5 mg twice daily, heart failure with preserved ejection fraction 55 to 60% on echo done 02/2025, sick sinus, status post pacemaker (follows with Dr. 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 Overnight he had A-fib with RVR heart rate to the 150s restarted on home medications digoxin, diltiazem, metoprolol. Heart rate now 60s to 70s. Patient remains afebrile pain well- controlled on [place]. Per consultation note with Dr. Garcia plans to hold off on surgery in setting of patient on Eliquis his last dose was 06/08 in the a.m. Surgery recommends sitz bath's twice daily. Lactic acid 3.3 up from 2.8 encourage p.o. intake VIOLETA is resolved creatinine 1.1 from 1.4. Continues on broad-spectrum antibiotics clindamycin 900 mg for 48 hours vancomycin and Zosyn. Per Dr. Garcia who recommended consulting with Dr. Rader, urology recommended elevating the scrotum and lower level concern of Oli's gangrene at this time 06/10/2025: Patient seen and examined at bedside. This morning blood pressure was noted to be a bit soft in the 90s systolic held diltiazem and digoxin metoprolol. Heart rate remains in the 100 patient remains afebrile. In setting of upcoming surgery patient is n.p.o. IV morphine 2 mg every 4 hours as needed, today is the last day of clindamycin 900 mg. Continue elevating scrotum till surgery. Plan to follow-up with Dr. Garcia for postsurgery recommendations. 06/12/2025: Patient seen and examined at bedside. Wound culture results are no growth on final report. VSS, WBC, downtrending to 14 from 21, hgb 12.3 from 14. continues on IV antibiotics Exam Vital Signs Temp Pulse Resp BP Pulse Ox O2 Del Method O2 Flow Rate 97.0 F 99 18 120/90 H 95 Room Air 3 06/12/25 08:00 06/12/25 09:23 06/12/25 08:00 06/12/25 09:23 06/12/25 08:00 06/12/25 08:00 06/10/25 17:49 Narrative Exam GENERAL: no acute distress, AAO x3, comfortably laying in bed HEENT: Head AT/ NC. Mucous membranes moist. PERRL. NECK: cervical lymphadenopathy palpable CARDIOVASCULAR: Irregularly Irregular, Rate 100s. Normal S1/S2, No m/r/g. No pitting edema of bilateral LEs. Pulses 2 + bilaterally LE RESPIRATORY: CTAB. No wheezing, rhonchi, crackles. GASTROINTESTINAL: Abdomen soft, non tender no palpable masses. Bowel sounds present. Apparent bleeding, has dressing over area of I&D. : scrotal swelling is resolving, non tender MUSCULOSKELETAL:? No cyanosis or edema, no visible joint swelling. NEUROLOGICAL: CN II-XII grossly intact. No focal deficits. Sensation intact, symmetric. PSYCHIATRIC: Awake and alert, not agitated, normal mood and affect. SKIN:. no jaundice, normal turgor. No lesions Objective Labs 06/12/25 04:36 06/12/25 04:36 Labs: Laboratory Results - last 24 hr 06/11/25 06/12/25 21:31 04:36 WBC 14.5 H D RBC 3.80 L Hgb 12.3 L Hct 36.6 L MCV 96 MCH 32.4 MCHC 33.6 RDW Std Deviation 49.6 H Plt Count 172 Neut % (Auto) 84 H Lymph % (Auto) 9 L [place] % (Auto) 5 Eos % (Auto) 0 Baso % (Auto) 0 Neut # (Auto) 12.2 H Lymph # (Auto) 1.3 [place] # (Auto) 0.7 Eos # (Auto) 0.0 Baso # (Auto) 0.1 Immature Gran # (Auto) 0.20 H Absolute Nucleated RBC 0.00 Immature Gran % 1 H Nucleated RBC % 0 Sodium 138 Potassium 3.9 D Chloride 103 Carbon Dioxide 26.2 Anion Gap 9 BUN 16 Creatinine 0.8 Estim Creat Clear Calc 114.9 eGFR > 60 BUN/Creatinine Ratio 20 Glucose 127 H Calculated Osmolality 278 Calcium 8.6 Corrected Calcium 9.3 Phosphorus 3.4 Magnesium 1.6 Total Bilirubin 0.7 AST < 10 ALT 7 L Alkaline Phosphatase 110 Total Protein 5.2 L Albumin 3.1 L Globulin 2.1 L Albumin/Globulin Ratio 1.5 Vancomycin Trough 13.8 H Quality Measures Quality Measures VTE prophylaxis Advance care planning discussed with:: patient and spouse Assessment & Plan Assessment Current Active Medications: Generic Name Dose Route Start Last Admin Trade Name Freq PRN Reason Stop Dose Admin Acetaminophen 650 mg 06/08/25 18:05 Acetaminophen 325 Mg Tablet PO 07/08/25 18:04 Q6H PRN Fever >101.5 and pain 1-3 Hydrocodone Bitart/Acetaminophen 1 tab 06/08/25 18:05 06/09/25 18:00 Hydrocodone/Apap 5/325 Tablet PO 06/13/25 18:04 1 tab Q4HR PRN Administration PAIN SCALE 4-6 (Moderate Albuterol/Ipratropium 3 ml 06/10/25 14:46 Albuterol/Ipratropium (Duoneb) Rt Dominique 3 Ml Nebu INH 07/10/25 14:45 Q4HRRT PRN WHEEZING Allopurinol 300 mg 06/09/25 09:00 06/12/25 09:22 Allopurinol 100 Mg Tablet PO 07/09/25 08:59 300 mg DAILY DARLENE Administration Digoxin 0.125 mg 06/09/25 05:50 06/12/25 09:23 Digoxin 0.125 Mg Tablet PO 07/09/25 05:49 0.125 mg DAILY DARLENE Administration Diltiazem HCl 240 mg 06/09/25 06:00 06/12/25 05:12 Diltiazem Cd 120 Mg Capcr PO 07/09/25 05:59 240 mg Q24H DARLENE Administration Docusate Sodium 100 mg 06/08/25 18:29 Docusate Sod Liqd 100 Mg/10 Ml Udc PO 07/08/25 20:59 BID PRN constipation >2 days wo BM Protocol Piperacillin/Tazobactam/Dextrose 3.375 gm in 50 mls @ 12.5 mls/hr 06/08/25 22:00 06/12/25 05:12 Zosyn IV 06/15/25 21:59 12.5 mls/hr Q8HR DARLENE Administration Protocol Vancomycin HCl/Dextrose 250 mls @ 120 mls/hr 06/11/25 10:00 06/12/25 09:30 Vancomycin/D5w 1,250 Mg Ivpb IV 06/18/25 09:59 120 mls/hr BID@1000,2200 DARLENE Administration Protocol Magnesium Sulfate 4 gm in 50 mls @ 12.5 mls/hr 06/12/25 08:07 06/12/25 09:22 Magnesium Sulfate Ivpb IV 06/12/25 12:06 12.5 mls/hr X1 ONE Administration Metoprolol Tartrate 100 mg 06/09/25 08:30 06/12/25 09:23 Metoprolol Tartrate 25 Mg Tablet PO 07/09/25 08:29 100 mg Q12HR DARLENE Administration Morphine Sulfate 2 mg 06/11/25 15:03 06/12/25 08:05 Morphine Sulf Inj 4 Mg/Ml Vial IVP 06/15/25 13:46 2 mg Q4HR PRN Administration PAIN 7-10 Ondansetron HCl 4 mg 06/10/25 14:46 Ondansetron Inj 2 Mg/Ml Inj 2 Ml IVP 07/10/25 14:45 Q4H PRN NAUSEA Pharmacy Consult 1 each 06/08/25 18:15 Vancomycin Pharmacy To Dose 1 Each Each IV 07/08/25 18:14 QDAY PRN PROTOCOL Sennosides 1 tab 06/08/25 18:05 Senna Tablet PO 07/08/25 18:04 QDAY PRN constipation Protocol Plan Mr. Pena is a 65-year-old gentleman with a history of A-fib on Eliquis 5 mg twice daily, heart failure with preserved ejection fraction 55 to 60% on echo done 02/2025, sick sinus, status post pacemaker (follows with Dr. 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 pending i and d. #Right ischiorectal abscess #s/p Incision and drainage of large ischiorectal abscess #scrotal edema- resolving SOFA score 1 HR >90 (hx afib with rvr), and WBC 34 (pt taking methylprednisolone 4mg qd for #castlemans disease): now downtrending Dx - CTAP with large abscess on R buttocks extending toward the scrotum - Bcx NGTD @ 48 hrs - Lactic acid 4.2-->2.8-->3.3 (encourage PO intake) suspect type a (hypoperfusion) - procalcitonin negative - UA [place] - CRP 1.0 on admission Plan - General surgery consulted, appreciate recs--06/10 had I&D of ischiorectal abscess. - per urology recs, elevate the scrotum. (low level of concern for fourniers) - Clindamycin 900 mg q8hr for 48 hours total (06/08-06/10) - Vanc, pharmacy to dose (06/08- - Zosyn 3.375 q8hr (06/08- - hold Eliquis yet due to active bleeding - wound care referral #prerenal VIOLETA- resolved Cr: 1.4-->0.8 with baseline 1.0 Ddx: Consider pre vs intra vs post renal etiologies likely prerenal given resolution with fluids. pt reports normal po intake in the past few days. Plan - avoid nephrotoxic agents - encourage PO intake HFpEF (55-60% 02/2025) Sick sinus s/p pace maker HTN Afib with RVR follows with Dr. 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 Diet: cardiac diet mechanical alteration Bowel Reg: senna VTE ppx: SCD, hold home elequis GI ppx: not indicated Code status: FULL Plan discussed with Dr Sanz, and Dr. Felix Dial MD PGY1
--- NOTE | 2025-06-12 12:24 | PD.SURPROG ---
Documentation for date of: 06/12/25 Subjective Subjective Brief History: History of present illness revealed that the patient was in his usual health until about 3 days ago when he noticed some tenderness over the right buttock. He did not have much pain he did not have any fever or chills. He has a history of Castleman's disease for which he is getting infusion of monoclonal antibodies called Sylvant. He has been was diagnosed in [place] and subsequently he is receiving this transfusion in [place]. His disease is under control according to the patient. 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 He also has had a right pleural effusion in February of this year. He had a pacemaker implanted for sick sinus syndrome. He has been admitted a few times in the hospital this year and recently for a COVID infection 2 weeks ago Narrative: The patient's pain is under control and he is feeling better. Dressing was changed yesterday and this morning by the wound care nurse Exam Vital Signs Temp Pulse Resp BP Pulse Ox O2 Del Method O2 Flow Rate 97 F 75 16 109/70 98 Room Air 3 06/12/25 11:49 06/12/25 11:49 06/12/25 11:49 06/12/25 11:49 06/12/25 11:49 06/12/25 11:49 06/10/25 17:49 His vital signs are normal Routine Rectal Exam Comments: Examination of the perirectal area showed that the inflammation is receding and the scrotal swelling is less Results Results: Laboratory Laboratory Narrative: WBC is down to 14,000 Assessment & Plan Assessment Additional comments: Patient: Satisfactory recovery following incision and drainage of the perirectal abscess and perineum Plan Plan: Patient could be discharged tomorrow and sent to wound care. PROCEDURES: Procedures Incision and drainage of the large ischiorectal abscess
[2025-06-12] MEDS: HYDROcodone/APAP 5/325 TABLET 1 TAB PO (21:05)
[2025-06-13] VITALS (11 sets, daily range): BP systolic 103–140; BP diastolic 54–86; PULSE 64–92; RESP 14–18; TEMP 35.8–36.2; O2SAT 96–98
[2025-06-13] MEDS: MORPHINE SULF INJ 4 MG/ML VIAL 2 MG IVP ×3 (02:10→10:03)
[2025-06-13 06:10] LABS: Basophils # (Auto) 0.1 Thou/mm3 (0.0-0.2); Basophils % (Auto) 1 % (0-2.5); Eosinophils # (Auto) 0.1 Thou/mm3 (0.0-0.5); Eosinophils % (Auto) 1 % (0-10); Hematocrit 38.8 % (41.0-53.0); Hemoglobin 13.1 g/dL (13.5-16.0); Immature Granulocytes Auto 0.30 Thou/mm3 (0.00-0.00); Lymphocytes # (Auto) 1.7 Thou/mm3 (1.0-4.8); Lymphocytes % (Auto) 13 % (10-50); Mean Corpuscular HGB Conc 33.8 g/dl (31.0-37.0); Mean Corpuscular Hemoglobin 33.1 pg (25.0-35.0); Mean Corpuscular Volume 98 fL (80-100); Monocytes # (Auto) 0.7 Thou/mm3 (0.0-0.8); Monocytes % (Auto) 5 % (0-12); Neutrophils # (Auto) 9.8 Thou/mm3 (1.8-7.7); Neutrophils % (Auto) 78 % (37-80); Nucleated Red Blood Cell # 0.00 Thou/mm3 (0.00-0.00); Nucleated Red Blood Cell % 0 /100 WBC (0); Platelet Count 170 Thou/mm3 (140-440); RDW Standard Deviation 50.9 fL (35.1-43.9); Red Blood Count 3.96 Miln/mm3 (4.50-5.90); White Blood Count 12.7 Thou/mm3 (3.8-10.6)
[2025-06-13] MEDS: DILTIAZEM CD 120 MG CAPCR 240 MG PO (06:14)
[2025-06-13] MEDS: PIPER/TAZO 3.375 GM PREMIX 3.375 GM/50 ML BAG IV (06:14)
[2025-06-13 06:38] LABS: Alanine Aminotransferase 9 U/L (10-49); Albumin, Serum 3.4 gm/dL (3.4-4.8); Albumin/Globulin Ratio 1.5 (1.2-2.2); Alkaline Phosphatase 113 U/L (46-116); Anion Gap 8 (7-16); Aspartate Amino Transferase 13 U/L (0-34); BUN/Creatinine Ratio 14 Ratio (12-20); Bilirubin,Total 1.1 mg/dL (0.3-1.2); Blood Urea Nitrogen 14 mg/dL (9-23); Calcium 8.6 mg/dL (8.3-10.6); Calcium (Corrected) 9.1 mg/dL (8.5-10.1); Carbon Dioxide 26.9 mMol/L (20.0-31.0); Chloride 104 mMol/L (98-107); Creatinine (Component) 1.0 mg/dL (0.6-1.3); Estimated Creatinine Clearance 92.0 mL/min (>60); Globulin 2.2 gm/dL (2.3-3.5); Glucose 102 mg/dL (74-106); Magnesium 2.1 mg/dL (1.6-2.6); Osmolality,Calculated 278 (275-295); Phosphorous 3.4 mg/dL (2.4-5.1); Potassium 4.3 mMol/L (3.4-5.1); Sodium 139 mMol/L (136-145); Total Protein 5.6 gm/dL (5.7-8.2); eGFR > 60 See Note
--- NOTE | 2025-06-13 08:12 | ESDS_ITS ---
<Statement entered by Moe Washington MD - 06/19/25 17:36> I reviewed above note and agree with findings and plans. I have also personally examined the patient with medicine team and went over assessment and plan with medical team including record label intern and resident physician. <Statement entered by Karli Sanz MD - 06/14/25 07:31> I discussed with and supervised the record label intern physician who took care of this patient. I personally saw and examined the patient and discussed the assessment and plan with the entire medicine team, including my attending Dr. Washington, I agree with most of the assessment and plan as documented below Karli Sanz M.D. PGY-3 Planned Discharge Date 06/13/25 DS: Providers Provider Date of admission: 06/08/25 18:05 Primary care physician: Deandre Dukes MD Admitting Provider: Sarthak Herbert DO Attending Provider on Admission: Moe Washington MD Consults: 06/08/25 16:40 Consult to General Surgery Stat Comment: Abscess Buttock Consulting Provider: Ruby Vazquez 06/09/25 10:48 Consult to Urology Routine Comment: scrotal swelling in setting of rectal abscess Consulting Provider: Rudy Rader 06/11/25 11:49 Referral Wound Care Routine Comment: s/p I&D rectal abscess 06/11/25 16:11 Referral Nutritional Services Routine Comment: Wound Referral OP Wound Healing Dept Routine Comment: Right gluteal abscess s/p I&D Attending Provider on DC: Moe Washington MD Discharging Provider: Moe Washington MD DS: Diagnosis Problem List Completed Was Problem List Reviewed/Reconciled?: Yes Hospital Course Hospital Course Hospital course: Hospital Course Mr. Pena is a 65-year-old gentleman with a history of A-fib on Eliquis 5 mg twice daily, heart failure with preserved ejection fraction 55 to 60% on echo done 02/2025, sick sinus, status post pacemaker (follows with Dr. Marquez) hypertension, Castleman's disease on every 3 weeks rituximab infusions, who presented with right gluteal abscess found to have ischiorectal abscess. Urology reccomended elevating scrotum given edema, however low suspicion of fourneirs. S/p i and d with Dr. Garcia, continued on IV abx with downtrending leukocytosis, wound cultures with no growth, pt transitioned to PO antibiotics. Patient stable and medically cleared for discharge Discharge instructions Please continue to take your home medications as prescribed. Please start taking your new antibiotic, Cephalexin 500mg twice daily Please take norco as needed for your pain. Please see your Primary Care Physician and Dr. Garcia within 1 week. Please follow with the wound care instructions as given. [facility] will be reaching out to you and are schedule to begin care 06/16/25 If your symptoms return, please come back to the Emergency Department. Diagnoses Right ischiorectal abscess s/p Incision and drainage of large ischiorectal abscess scrotal edema- resolving prerenal VIOLETA- resolved HFpEF (55-60% 02/2025) Sick sinus s/p pace maker HTN Afib with RVR ?Asthma Castlemans Disease Arthritis Plan discussed with Dr Sanz, and Dr. Felix Dial MD PGY1 Status at Discharge Functional status at discharge: independent ambulation Time Spent with Patient Time attestation: Total time spent providing and/or coordinating discharge services: Time spent: Greater than 30 minutes Exam Vital Signs Temp Pulse Resp BP Pulse Ox O2 Del Method O2 Flow Rate 96.9 F 81 14 140/54 H 97 Room Air 3 06/13/25 04:00 06/13/25 06:23 06/13/25 04:00 06/13/25 06:14 06/13/25 04:00 06/13/25 04:00 06/10/25 17:49 Narrative Exam GENERAL: no acute distress, AAO x3, comfortably laying in bed HEENT: Head AT/ NC. Mucous membranes moist. PERRL. NECK: cervical lymphadenopathy palpable CARDIOVASCULAR: Irregularly Irregular, Rate 100s. Normal S1/S2, No m/r/g. No pitting edema of bilateral LEs. Pulses 2 + bilaterally LE RESPIRATORY: CTAB. No wheezing, rhonchi, crackles. GASTROINTESTINAL: Abdomen soft, non tender no palpable masses. Bowel sounds present. mild perianal draining, wound is packed, has dressing over area of I&D. : scrotal swelling is resolving, non tender MUSCULOSKELETAL:? No cyanosis or edema, no visible joint swelling. NEUROLOGICAL: CN II-XII grossly intact. No focal deficits. Sensation intact, symmetric. PSYCHIATRIC: Awake and alert, not agitated, normal mood and affect. SKIN:. no jaundice, normal turgor. No lesions Discharge Plan Plan Patient Disposition: Home w/HOME HEALTH Care Plan Goals: Dressing Change Home Care: Follow up with [facility] W[facility] Department, call [phone] for appointment. You have a wound that needs special care to heal.? Your body will make the new skin needed to close your wound, but you have to help.? Germs and old skin on the wound have to be removed.? This is done by changing the dressing on the wound as directed by your doctor. Wound:? Right buttocks Supplies/Equipment (keep all supplies in one place clean and dry) o?? Normal Saline (salt water) solution.? You can make you own by boiling 2 cups of water with ? teaspoon of salt for 10 minutes.? Keep in a glass jar in the refrigerator and make a new batch every day. o?? Clean/Irrigate wound with ?normal saline or wound cleanser o?? Medication for wound: normal saline moistened gauze o?? Primary dressing ? o?? Secondary dressing: dry gauze and gauze roll o?? Tape o?? Gloves o?? Q-tips o?? Small trash bag o?? Other supplies Follow these instructions: 1.??? Wash your hands with soap and water. 2.??? Gather all your supplies and place on a clean towel or paper towel. 3.??? Put on gloves. Saturate wound dressing with normal saline to ease removal 4.??? Remove all of the old dressing (including gauze packing if any) and put in the trash bag. 5.??? Take off the gloves and put in trash bag. 6.??? If not using gloves wash your hands again or put on new gloves. 7.??? Irrigate wound with Normal saline and pat dry. ?Place gauze in trash bag. 8.??? Right buttocks: Pack wound with single continuos piece of strip packing to the deepest part of the wound starting at the top filling clockwise until resistance is felt. Fill in remaining cavity leaving 1-2cm outside of wound for easier removal. Cover with dry gauze dressing. Change once a day and as needed for soiling with feces or urine. If active bleeding occurs, apply tight dressing and return to MD or ER. ? Notify primary doctor or return to Emergency Room if any of the following: ? Fever above 100.6? F. ? Increased pain ? Increase swelling ? Red streaks around your wound ? Drainage becomes foul smelling or changes color ? The wound is larger or deeper ? The wound looks dried out or dark ? Bleeding that does not stop with holding pressure Please continue to take your home medications as prescribed. Please start taking your new antibiotic, Cephalexin 500mg twice daily Please take norco as needed for your pain. Please see your Primary Care Physician and Dr. Garcia within 1 week. Please follow with the wound care instructions as given. [facility] will be reaching out to you and are schedule to begin care 06/16/25 If your symptoms return, please come back to the Emergency Department. Prescriptions/Referrals Prescriptions/Med Rec: New hydrocodone-acetaminophen 5-325 mg tablet 1 tab PO Q8H MDD 15mg PRN (Reason: pain) 3 Days Qty: 9 0RF cephalexin 500 mg capsule 500 mg PO Q12H 7 Days Qty: 14 0RF Continued metoprolol tartrate 100 mg tablet 100 mg PO Q12H Patient Comments: TAKE 1 TABLET BY MOUTH TWICE DAILY WITH FOOD digoxin 125 mcg (0.125 mg) tablet 0.125 mg PO DAILY Patient Comments: TAKE 1 TABLET BY MOUTH ONCE DAILY FOR 90 DAYS diltiazem HCl 240 mg capsule,extended release 24 hr 240 mg PO Q24H Patient Comments: TAKE 1 CAPSULE BY MOUTH ONCE DAILY methotrexate sodium 2.5 mg tablet 15 mg PO .Q WEEKLY Patient Comments: TAKE 6 TABLETS BY MOUTH ONCE A WEEK ALL AT ONCE methylprednisolone 4 mg tablet 4 mg PO QDAY Patient Comments: TAKE 1 TABLET BY MOUTH ONCE DAILY NEEDED bumetanide 1 mg tablet 1 mg PO QDAY 30 Days Qty: 30 1RF Eliquis 5 mg Tablet 5 mg PO BID lisinopril 20 mg tablet 20 mg PO DAILY Patient Comments: TAKE 1 TABLET BY MOUTH ONCE DAILY allopurinol 300 mg tablet 300 mg PO DAILY Patient Comments: TAKE 1 TABLET BY MOUTH ONCE DAILY Referrals: Ruby Vazquez MD [Physician, General Surgery] Deandre Dukes MD [Primary Care Provider, Family Practice] Patient/Caregiver Discharge Instructions Education Materials: Nutrition for Wound Healing, Changing Dressing Dc, Discharge Instructions Wound ..., Preventing Surgical Site Infections, Dressing Change Steps Print Language: Nepali Stand Alone Forms: Marivel Award Info., Patient Portal Info Letter Discharge Order Discharge Orders: Discharge (Routine); Ordered 06/13/25 Ordered By: Karli Sanz Quality Discharge Quality Measures VTE prophylaxis
[2025-06-13] MEDS: METOPROLOL TARTRATE 25 MG TABLET 100 MG PO (08:38)
[2025-06-13] MEDS: ACETAMINOPHEN 325 MG TABLET 650 MG PO (08:39)
[2025-06-13] MEDS: HYDROcodone/APAP 5/325 TABLET 1 TAB PO (08:39)
[2025-06-13] MEDS: DIGOXIN 0.125 MG TABLET PO (08:39)
[2025-06-13] MEDS: APIXABAN 2.5 MG TABLET 5 MG PO (08:41)
[2025-06-13 09:18] LABS: Vancomycin,Trough 16.1 mcg/mL (5.0-10.0)
--- NOTE | 2025-06-13 10:05 | PD.SURPROG ---
Documentation for date of: 06/13/25 Subjective Subjective Brief History: History of present illness revealed that the patient was in his usual health until about 3 days ago when he noticed some tenderness over the right buttock. He did not have much pain he did not have any fever or chills. He has a history of Castleman's disease for which he is getting infusion of monoclonal antibodies called Sylvant. He has been was diagnosed in [place] and subsequently he is receiving this transfusion in [place]. His disease is under control according to the patient. 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 He also has had a right pleural effusion in February of this year. He had a pacemaker implanted for sick sinus syndrome. He has been admitted a few times in the hospital this year and recently for a COVID infection 2 weeks ago Narrative: Patient is feeling better. Dressing was changed yesterday the wound looks fairly well as per the wound care nurse Exam Vital Signs Temp Pulse Resp BP Pulse Ox O2 Del Method O2 Flow Rate 96.6 F L 84 18 112/74 98 Room Air 3 06/13/25 07:40 06/13/25 08:39 06/13/25 07:40 06/13/25 08:39 06/13/25 07:40 06/13/25 07:40 06/10/25 17:49 His vital signs are normal Results Results: Laboratory Laboratory Narrative: Patient's WBC is coming down to normal value Assessment & Plan Plan Plan: Patient could be discharged today with wound care instructions of packing the wound daily. The could do the packing and he can go to wound care clinic also. I will see him in 1 week in my office and we shall send him on some oral antibiotic PROCEDURES: Procedures Incision and drainage of the large ischiorectal abscess
[2025-06-13] MEDS: VANCOMYCIN/NS 1 GM IVPB 200 ML IV (11:06)
--- NOTE | 2025-06-13 11:11 | PC.CC ---
Addendum entered by Artur Soria RN 06/13/25 11:34: [facility] accepted and booked. soc 06/16 Original Note: [facility] ref sent out, waiting for responses
== END 2025-06-13 14:20 | disposition home health service (06) | DRG 394 ==
LOC: SERX 16:34 → SERHOLD 18:49 → S3SX 06-09 06:16
PROVIDERS: Physician Assistant; Surgery; Admitting Provider Student in an Organized Health Care Education/Training Program; Emergency Provider Emergency Medicine; PCP Family Medicine; Visit Provider Internal Medicine
PROC: 0J9B3ZX Drainage of Perineum Subcutaneous Tissue and Fascia, Percutaneous Approach, Diagnostic (ICD-10-PCS; principal; 2025-06-10 18:30)
DX: K61.39 Other ischiorectal abscess (principal); D47.Z2 Castleman disease; L02.31 Cutaneous abscess of buttock; I50.32 Chronic diastolic (congestive) heart failure; N17.9 Acute kidney failure, unspecified; D84.9 Immunodeficiency, unspecified; Z95.0 Presence of cardiac pacemaker; I48.91 Unspecified atrial fibrillation; Z79.01 Long term (current) use of anticoagulants; I11.0 Hypertensive heart disease with heart failure; Z86.16 Personal history of COVID-19; N50.89 Other specified disorders of the male genital organs; J45.909 Unspecified asthma, uncomplicated; M19.90 Unspecified osteoarthritis, unspecified site; N40.0 Benign prostatic hyperplasia without lower urinary tract symptoms; E66.9 Obesity, unspecified; Z79.899 Other long term (current) drug therapy; Z96.659 Presence of unspecified artificial knee joint; Z68.32 Body mass index [BMI] 32.0-32.9, adult; I49.5 Sick sinus syndrome
CPT/HCPCS: 36415; 71046; 74177; 80053; 80202; 81001; 83605; 83615; 83735; 83880; 84100; 84145; 85025; 85610; 85730; 86140; 87040; 87070; 87081; 87205; 87811; 93005; 93225; 94664; 94762; 96365; 96366; 99285; A4649; J0330; J0736; J1100; J1171; J2270; J2371; J2543; J2704; J2765; J3010; J3372; J3373; J3475; J3490; J7030; J7120; J7999; Q0162; Q9967; A9270; J1805

== ENCOUNTER → 2025-06-24 | Outpatient (CLI) | payer MEDICARE, SELFPAY | END | disposition home or self-care (01) | LOC: SWHD 12:40 | PROVIDERS: PCP Internal Medicine; Referring Provider Internal Medicine; Visit Provider Student in an Organized Health Care Education/Training Program | DX: L02.31 Cutaneous abscess of buttock (principal); R23.8 Other skin changes; M19.91 Primary osteoarthritis, unspecified site; I50.9 Heart failure, unspecified; F12.929 Cannabis use, unspecified with intoxication, unspecified; I11.0 Hypertensive heart disease with heart failure; Z98.890 Other specified postprocedural states | CPT/HCPCS: 99212; A9270; G0463 ==

== ENCOUNTER → 2025-06-25 | Outpatient (CLI) | payer MEDICARE, SELFPAY | END | disposition home or self-care (01) | LOC: SLDO 14:45 | PROVIDERS: Referring Provider Student in an Organized Health Care Education/Training Program; Visit Provider Student in an Organized Health Care Education/Training Program | DX: L02.31 Cutaneous abscess of buttock (principal); D84.821 Immunodeficiency due to drugs | CPT/HCPCS: 87070; 87075; 87077; 87186; 87205 ==

== ENCOUNTER → 2025-06-30 | Outpatient (CLI) | payer MEDICARE, SELFPAY ==
[2025-06-30 07:37] LABS: Misc Send Out* See Sep Rpt
[2025-06-30 08:33] LABS: Basophils # (Auto) 0.2 Thou/mm3 (0.0-0.2); Basophils % (Auto) 1 % (0-2.5); Eosinophils # (Auto) 0.2 Thou/mm3 (0.0-0.5); Eosinophils % (Auto) 1 % (0-10); Hematocrit 44.1 % (41.0-53.0); Hemoglobin 14.4 g/dL (13.5-16.0); Immature Granulocytes Auto 0.86 Thou/mm3 (0.00-0.00); Lymphocytes # (Auto) 3.7 Thou/mm3 (1.0-4.8); Lymphocytes % (Auto) 18 % (10-50); Mean Corpuscular HGB Conc 32.7 g/dl (31.0-37.0); Mean Corpuscular Hemoglobin 32.6 pg (25.0-35.0); Mean Corpuscular Volume 100 fL (80-100); Monocytes # (Auto) 1.7 Thou/mm3 (0.0-0.8); Monocytes % (Auto) 8 % (0-12); Neutrophils # (Auto) 13.8 Thou/mm3 (1.8-7.7); Neutrophils % (Auto) 68 % (37-80); Nucleated Red Blood Cell # 0.00 Thou/mm3 (0.00-0.00); Nucleated Red Blood Cell % 0 /100 WBC (0); Platelet Count 385 Thou/mm3 (140-440); RDW Standard Deviation 53.9 fL (35.1-43.9); Red Blood Count 4.42 Miln/mm3 (4.50-5.90); White Blood Count 20.4 Thou/mm3 (3.8-10.6)
[2025-06-30 08:49] LABS: Sed Rate (ESR) 23 mm/hr (0-20)
[2025-06-30 08:52] LABS: Alanine Aminotransferase 17 U/L (10-49); Albumin, Serum 4.3 gm/dL (3.4-4.8); Albumin/Globulin Ratio 1.4 (1.2-2.2); Alkaline Phosphatase 122 U/L (46-116); Anion Gap 11 (7-16); Aspartate Amino Transferase 15 U/L (0-34); BUN/Creatinine Ratio 20 Ratio (12-20); Bilirubin,Total 0.4 mg/dL (0.3-1.2); Blood Urea Nitrogen 26 mg/dL (9-23); C-Reactive Protein < 0.5 mg/dL (0.0-0.9); Calcium 10.2 mg/dL (8.3-10.6); Calcium (Corrected) 10.2 mg/dL (8.5-10.1); Carbon Dioxide 28.4 mMol/L (20.0-31.0); Chloride 103 mMol/L (98-107); Creatinine (Component) 1.3 mg/dL (0.6-1.3); Globulin 3.1 gm/dL (2.3-3.5); Glucose 130 mg/dL (74-106); Osmolality,Calculated 289 (275-295); Potassium 4.7 mMol/L (3.4-5.1); Sodium 142 mMol/L (136-145); Total Protein 7.4 gm/dL (5.7-8.2); eGFR > 60 See Note
[2025-06-30 09:18] LABS: Glucose Estimated Average 131 mg/dL (80-131); Hemoglobin A1C 6.2 % Hgb (4.8-6.0)
[2025-07-04 07:05] LABS: Complement Component C3* 157 mg/dL (82-185); Complement Component C4c* 33 mg/dL (15-53)
== END | disposition home or self-care (01) ==
LOC: SWHO 07:19 → COPL 14:01
PROVIDERS: PCP Internal Medicine; Referring Provider Internal Medicine; Visit Provider Student in an Organized Health Care Education/Training Program
DX: L02.31 Cutaneous abscess of buttock (principal); D84.821 Immunodeficiency due to drugs; D47.Z2 Castleman disease; M06.9 Rheumatoid arthritis, unspecified; Z79.52 Long term (current) use of systemic steroids
CPT/HCPCS: 36415; 80053; 83036; 85025; 85652; 86140; 86160

== ENCOUNTER → 2025-07-01 | Outpatient (CLI) | payer MEDICARE, SELFPAY | END | disposition home or self-care (01) | PROVIDERS: PCP Internal Medicine; Referring Provider Internal Medicine; Visit Provider Student in an Organized Health Care Education/Training Program | DX: L02.31 Cutaneous abscess of buttock (principal); S31.819A Unspecified open wound of right buttock, initial encounter; X58.XXXA Exposure to other specified factors, initial encounter; R23.8 Other skin changes; M19.91 Primary osteoarthritis, unspecified site; I50.9 Heart failure, unspecified; I11.0 Hypertensive heart disease with heart failure; Z98.890 Other specified postprocedural states | CPT/HCPCS: 99212; A9270; G0463 ==

== ENCOUNTER → 2025-07-01 | Outpatient (CLI) | payer MEDICARE, SELFPAY | END | disposition home or self-care (01) | PROVIDERS: Referring Provider Student in an Organized Health Care Education/Training Program; Visit Provider Student in an Organized Health Care Education/Training Program | DX: L02.31 Cutaneous abscess of buttock (principal); D84.821 Immunodeficiency due to drugs | CPT/HCPCS: 87070; 87075; 87077; 87186; 87205 ==

== ENCOUNTER → 2025-07-08 | Outpatient (CLI) | payer MEDICARE, SELFPAY | END | disposition home or self-care (01) | PROVIDERS: PCP Internal Medicine; Referring Provider Internal Medicine; Visit Provider Student in an Organized Health Care Education/Training Program | DX: L02.31 Cutaneous abscess of buttock (principal); S31.819A Unspecified open wound of right buttock, initial encounter; X58.XXXA Exposure to other specified factors, initial encounter; R23.8 Other skin changes; M19.91 Primary osteoarthritis, unspecified site; I50.9 Heart failure, unspecified; I11.0 Hypertensive heart disease with heart failure; Z98.890 Other specified postprocedural states | CPT/HCPCS: 99212; A9270; G0463 ==

== ENCOUNTER → 2025-07-15 | Outpatient (CLI) | payer MEDICARE, SELFPAY | END | disposition home or self-care (01) | LOC: SWHD 13:32 | PROVIDERS: PCP Internal Medicine; Referring Provider Internal Medicine; Visit Provider Student in an Organized Health Care Education/Training Program | DX: L02.31 Cutaneous abscess of buttock (principal); S31.819A Unspecified open wound of right buttock, initial encounter; X58.XXXA Exposure to other specified factors, initial encounter; R23.8 Other skin changes; I50.9 Heart failure, unspecified; I11.0 Hypertensive heart disease with heart failure; Z98.890 Other specified postprocedural states | CPT/HCPCS: 99213; G0463 ==

== ENCOUNTER → 2025-07-22 | Outpatient (CLI) | payer MEDICARE, SELFPAY | END | disposition home or self-care (01) | LOC: SWHD 15:15 | PROVIDERS: PCP Internal Medicine; Referring Provider Internal Medicine; Visit Provider Student in an Organized Health Care Education/Training Program | DX: L02.31 Cutaneous abscess of buttock (principal); S31.819A Unspecified open wound of right buttock, initial encounter; X58.XXXA Exposure to other specified factors, initial encounter; R23.8 Other skin changes; I50.9 Heart failure, unspecified; I11.0 Hypertensive heart disease with heart failure; Z98.890 Other specified postprocedural states | CPT/HCPCS: 99212; G0463 ==

== ENCOUNTER → 2025-07-29 | Outpatient (CLI) | payer MEDICARE, SELFPAY | END | disposition home or self-care (01) | PROVIDERS: PCP Internal Medicine; Referring Provider Internal Medicine; Visit Provider Student in an Organized Health Care Education/Training Program | DX: L02.31 Cutaneous abscess of buttock (principal); S31.819A Unspecified open wound of right buttock, initial encounter; X58.XXXA Exposure to other specified factors, initial encounter; R23.8 Other skin changes; I50.9 Heart failure, unspecified; I11.0 Hypertensive heart disease with heart failure; Z98.890 Other specified postprocedural states | CPT/HCPCS: 99212; G0463 ==

== ENCOUNTER → 2025-08-06 | Outpatient (CLI) | payer MEDICARE, SELFPAY | END | disposition home or self-care (01) | LOC: SWHD 15:09 | PROVIDERS: PCP Internal Medicine; Referring Provider Internal Medicine; Visit Provider Student in an Organized Health Care Education/Training Program | DX: L02.31 Cutaneous abscess of buttock (principal); S31.819A Unspecified open wound of right buttock, initial encounter; X58.XXXA Exposure to other specified factors, initial encounter; R23.8 Other skin changes; I50.9 Heart failure, unspecified; I11.0 Hypertensive heart disease with heart failure; Z98.890 Other specified postprocedural states | CPT/HCPCS: 99213; G0463 ==

== ENCOUNTER → 2025-08-12 | Outpatient (CLI) | payer MEDICARE, SELFPAY | END | disposition home or self-care (01) | LOC: SWHD 15:20 | PROVIDERS: PCP Internal Medicine; Referring Provider Internal Medicine; Visit Provider Student in an Organized Health Care Education/Training Program | DX: L02.31 Cutaneous abscess of buttock (principal); S31.819A Unspecified open wound of right buttock, initial encounter; X58.XXXA Exposure to other specified factors, initial encounter; R23.8 Other skin changes; I11.0 Hypertensive heart disease with heart failure; Z98.890 Other specified postprocedural states | CPT/HCPCS: 99213; G0463 ==

== ENCOUNTER → 2025-08-19 | Outpatient (CLI) | payer MEDICARE, SELFPAY | END | disposition home or self-care (01) | LOC: SWHD 15:07 | PROVIDERS: PCP Internal Medicine; Referring Provider Internal Medicine; Visit Provider Student in an Organized Health Care Education/Training Program | DX: L02.31 Cutaneous abscess of buttock (principal); S31.819A Unspecified open wound of right buttock, initial encounter; X58.XXXA Exposure to other specified factors, initial encounter; R23.8 Other skin changes; I50.9 Heart failure, unspecified; I11.0 Hypertensive heart disease with heart failure; Z98.890 Other specified postprocedural states | CPT/HCPCS: 99213; G0463 ==

== ENCOUNTER → 2025-08-26 | Outpatient (CLI) | payer MEDICARE, SELFPAY | END | disposition home or self-care (01) | PROVIDERS: PCP Internal Medicine; Referring Provider Internal Medicine; Visit Provider Student in an Organized Health Care Education/Training Program | DX: L02.31 Cutaneous abscess of buttock (principal); S31.819A Unspecified open wound of right buttock, initial encounter; X58.XXXA Exposure to other specified factors, initial encounter; R23.8 Other skin changes; I50.9 Heart failure, unspecified; I11.0 Hypertensive heart disease with heart failure; Z98.890 Other specified postprocedural states | CPT/HCPCS: 99212; G0463 ==

== ENCOUNTER 2025-08-29 12:14 | Inpatient (IN) | payer MEDICARE, SELFPAY ==
[2025-08-29] VITALS (10 sets, daily range): BP systolic 104–143; BP diastolic 62–88; PULSE 94–126; RESP 20–88; TEMP 37–38.3; O2SAT 93–98; BMI 31.6
--- NOTE | 2025-08-29 12:18 | EKG_ITS ---
[facility] Test Date: 2025-08-29 Pat Name: SALVADOR GUTIERREZ Department: Room: - Gender: Male Hose Turner: : 1960 Requested By: Jamie Yanes Order Number: [id number] Reading MD: Jamie Yanes Measurements Intervals [place] Rate: 105 P: OR: QRS: 37 QRSD: 93 T: 1 QT: 332 QTc: 440 Interpretive Statements ATRIAL FIBRILLATION WITH RAPID VENTRICULAR RESPONSE NONSPECIFIC T-WAVE ABNORMALITY ABNORMAL RHYTHM ECG Compared to ECG 06/09/2025 05:02:23 Ventricular premature complex(es) no longer present Aberrant conduction of supraventricular beat(s) no longer present T-wave abnormality still present /store/S0/[id number]/[id number].pdf
--- NOTE | 2025-08-29 12:31 | XR_ITS ---
EXAMINATION: PA chest single view TECHNIQUE: Upright PA chest single view Date and time: August 29, 2025, 1309 hours, comparison 06/08/2025 INDICATIONS: Coughing congestion chest pain beginning 1 week ago. FINDINGS: Right base pneumonia Mild prominence left ventricle Central vascular congestion and prominence Septal edema at the lung bases Unipolar ventricular leads satisfactory position IMPRESSION: Mild heart failure Pneumonia right base
--- NOTE | 2025-08-29 12:32 | PD.EDRME ---
Rapid Medical Screening Exam RME Arrival date/time: 08/29/25 12:14 65-year-old male with a history of CHF, A-fib, hypertension, presents to the emergency room with a chief complaint of shortness of breath x 1 day I have greeted and performed a focused initial assessment of this patient. A comprehensive ED assessment and evaluation of the patient, analysis of all test results, and completion of the medical decision making process will be conducted by additional ED providers. Chief Complaint: Flu Like Symptoms Time Seen by Provider: 08/29/25 12:21 Vital signs: Vital Signs Temperature 98.6 F 08/29/25 12:21 Pulse Rate 94 08/29/25 12:21 Respiratory Rate 22 H 08/29/25 12:21 Blood Pressure 143/88 H 08/29/25 12:21 Pulse Oximetry (%) 97 08/29/25 12:21 Oxygen Delivery Method Room Air 08/29/25 12:21 Vital signs reviewed by provider: Yes Exam: Clear bilateral lung sounds GCS 15 alert and oriented x 3 Clinical Impression: Community-acquired pneumonia/CHF exacerbation
[2025-08-29 13:17] LABS: Basophils # (Auto) 0.0 Thou/mm3 (0.0-0.2); Basophils % (Auto) 0 % (0-2.5); Eosinophils # (Auto) 0.1 Thou/mm3 (0.0-0.5); Eosinophils % (Auto) 1 % (0-10); Hematocrit 33.7 % (41.0-53.0); Hemoglobin 10.8 g/dL (13.5-16.0); Immature Granulocytes Auto 0.20 Thou/mm3 (0.00-0.00); Lymphocytes # (Auto) 1.4 Thou/mm3 (1.0-4.8); Lymphocytes % (Auto) 7 % (10-50); Mean Corpuscular HGB Conc 32.0 g/dl (31.0-37.0); Mean Corpuscular Hemoglobin 30.2 pg (25.0-35.0); Mean Corpuscular Volume 94 fL (80-100); Monocytes # (Auto) 1.5 Thou/mm3 (0.0-0.8); Monocytes % (Auto) 7 % (0-12); Neutrophils # (Auto) 16.5 Thou/mm3 (1.8-7.7); Neutrophils % (Auto) 84 % (37-80); Nucleated Red Blood Cell # 0.00 Thou/mm3 (0.00-0.00); Nucleated Red Blood Cell % 0 /100 WBC (0); Platelet Count 437 Thou/mm3 (140-440); RDW Standard Deviation 49.6 fL (35.1-43.9); Red Blood Count 3.58 Miln/mm3 (4.50-5.90); White Blood Count 19.7 Thou/mm3 (3.8-10.6)
[2025-08-29 13:35] LABS: INR 1.4 (0.9-1.3); Partial Thromboplastin Time 33.8 Seconds (22.0-36.0); Prothrombin Time 14.8 Seconds (9.0-12.2)
[2025-08-29 13:49] LABS: Alanine Aminotransferase 26 U/L (10-49); Albumin, Serum 4.0 gm/dL (3.4-4.8); Albumin/Globulin Ratio 1.2 (1.2-2.2); Alkaline Phosphatase 199 U/L (46-116); Anion Gap 12 (7-16); Aspartate Amino Transferase 47 U/L (0-34); BUN/Creatinine Ratio 20 Ratio (12-20); Bilirubin,Total 0.7 mg/dL (0.3-1.2); Blood Urea Nitrogen 22 mg/dL (9-23); Calcium 9.1 mg/dL (8.3-10.6); Calcium (Corrected) 9.1 mg/dL (8.5-10.1); Carbon Dioxide 24.3 mMol/L (20.0-31.0); Chloride 101 mMol/L (98-107); Creatinine (Component) 1.1 mg/dL (0.6-1.3); Estimated Creatinine Clearance 84.3 mL/min (>60); Globulin 3.4 gm/dL (2.3-3.5); Glucose 131 mg/dL (74-106); Magnesium 2.2 mg/dL (1.6-2.6); Osmolality,Calculated 279 (275-295); Potassium 4.1 mMol/L (3.4-5.1); Sodium 137 mMol/L (136-145); Total Protein 7.4 gm/dL (5.7-8.2); Troponin I < 0.020 ng/mL (0.0-0.045); eGFR > 60 See Note
[2025-08-29 14:03] LABS: B-Type Natriuretic Peptide 111 pg/mL (0-100)
[2025-08-29 14:17] LABS: Collection Type, Urine Clean Catch
[2025-08-29 14:27] LABS: Bacteria,Urine Rare; Bilirubin,Urine Negative (Negative); Blood,Urine Trace (Negative); Clarity,Urine Turbid (Clear/Hazy); Color,Urine Yellow (Lt Yel-Yel); Culture Indicated,Urine Not Indicated; Glucose, Urine Negative (Negative); Ketones,Urine Trace (Negative); Leukocyte Esterase,Urine Positive (Negative); Nitrite,Urine Negative (Negative); PH,Urine 6.0 (5.0-7.0); Protein,Urine 1+ (Neg - Trace); RBC,Urine 5 /hpf (0-3); Specific Gravity,Urine 1.025 (1.001-1.035); Squamous Epithelial Cell,Urine 2 /hpf (0-5); Urobilinogen,Urine 2.0 mg/dL (0.0-1.0); WBC,Urine 8 /hpf (0-5)
--- NOTE | 2025-08-29 15:33 | PD.EDADULT ---
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 Patient denies chest pain fever nausea vomiting or diarrhea. RME / HPI RME / HPI narrative: 08/29/25 12:14 65-year-old male with a history of CHF, A-fib, hypertension, presents to the emergency room with a chief complaint of shortness of breath x 1 day I have greeted and performed a focused initial assessment of this patient. A comprehensive ED assessment and evaluation of the patient, analysis of all test results, and completion of the medical decision making process will be conducted by additional ED providers. Exam: Clear bilateral lung sounds GCS 15 alert and oriented x 3 Impression: Community-acquired pneumonia/CHF exacerbation Related Data Home Medications ?Medication ?Instructions ?Recorded ?Confirmed apixaban 5 mg tablet (Eliquis) 5 mg PO BID 12/12/23 06/08/25 allopurinol 300 mg tablet 300 mg PO DAILY 03/16/25 06/08/25 lisinopril 20 mg tablet 20 mg PO DAILY 03/16/25 06/08/25 digoxin 125 mcg (0.125 mg) tablet 0.125 mg PO DAILY 05/26/25 06/08/25 diltiazem HCl 240 mg capsule,24 240 mg PO Q24H 05/26/25 06/08/25 hr,extended release methotrexate sodium 2.5 mg tablet 15 mg PO .Q WEEKLY 05/26/25 06/08/25 methylprednisolone 4 mg tablet 4 mg PO QDAY 05/26/25 06/08/25 metoprolol tartrate 100 mg tablet 100 mg PO Q12H 05/26/25 06/08/25 Previous Rx's ?Medication ?Instructions ?Recorded bumetanide 1 mg tablet 1 mg PO QDAY 1 month #30 tabs 05/30/25 hydrocodone 5 mg-acetaminophen 325 1 tab PO BID PRN pain #14 tabs 07/08/25 mg tablet hydrocodone 5 mg-acetaminophen 325 1 tab PO QDAY #21 tabs 11/04/25 mg tablet Allergies Allergy/AdvReac Type Severity Reaction Status Date / Time No Known Allergies Allergy Verified 08/29/25 12:18 Review of Systems Review of Systems Narrative Review of Systems: GEN: No fever, no chills, no weight loss EYES: No discharge, no visual changes, no pain HEENT: No ear pain, no congestion, no sore throat PULM: No shortness of breath, + cough, no congestion CV: No chest pain, no dyspnea on exertion, no palpitations GI: No nausea, no vomiting, no diarrhea, no pain, no constipation : No frequency, no urgency, no dysuria MUSC/SKEL: No joint pain, no back pain SKIN: No rash PSYCH: No hallucinations, no depression HEME/LYMPH: No easy bleeding or bruising tendencies NEURO: + weakness, no headache Past Medical History Past Medical History NEUROLOGIC: Negative Neurological Disorders or Seizures CARDIAC: Positive Cardiac Disorders, Cardiac Arrhythmia, Atrial Fibrillation, Congestive Heart Failure, Congenital Heart Disease, Edema and Hypertension RESPIRATORY: Positive Bronchitis and Pneumonia; Negative Chronic Obstructive Pulmonary Disease (COPD) or Asthma GASTROINTESTINAL: Negative Gastrointestinal Disorders GENITOURINARY: Negative Genitourinary Disorders or Renal Disease MUSCULOSKELETAL: Positive Musculoskeletal Disorders, Arthritis and Osteoporosis ENDOCRINE: Negative Endocrine Disorders, Diabetes Mellitus Type 1 or Diabetes Mellitus Type 2 HEMATOLOGIC: Negative Blood Disorders or Sickle Cell Disease OTHER HISTORY: Positive Chicken Pox, Measles and Mumps; Negative Hospitalization, Autoimmune Disease, Shingles, Falls, Blood Transfusions, Blood Transfusion Reaction, Anesthesia Reactions, Organ Transplant, MRSA or Cancer Family History FAMILY HISTORY: Positive Family Cardiac Disorders; Negative Family Psychiatric Problems, Family Respiratory Disorders, Family Gastrointestinal Problems, Family Cancer or Family Anesthesia Reaction Surgical History SURGICAL: Positive Pacemaker and Joint Replacement; Negative Neurologic Surgery or Organ Transplant Social History SMOKING STATUS: Never smoker SUBSTANCE USE: does not use ED Exam Narrative Physical exam: [General: Obese not in any acute distress Head normocephalic HEENT: Within acceptable limits Neck is supple nontender Chest equal chest rise nontender to palpation Respiratory: Clear to auscultation no wheezes crackles or rubs CV: Rate rhythm is regular, tachycardic, no murmurs rubs or clicks Abdomen is distended secondary to body habitus soft nontender no masses positive bowel sounds all 4 quadrants Back: No CVA tenderness no spinous process tenderness from cervical spine thoracic and lumbar spine Skin: Intact no petechiae rash induration ulceration or crepitus Extremities: Moving all extremity against resistance cap refill less than 2 seconds neurosensory intact Neuro: Awake alert oriented x3 Glascow coma 15 no focal deficits] Course Course Course Narrative: Patient has leukocytosis but when reviewing the other previous labs he is always had a leukocytosis here. Patient is oxygen saturations 88% on room air with a wet nonproductive cough, with supplemental oxygen he ranges between 88 and 94% on 3 L. X-ray shows a pneumonia. With a low-grade temperature of 100.9 the lactic is 2.0 I think this gentleman would benefit from several days of IV antibiotics and close monitoring to make sure he does not deteriorate in nature. Patient's case discussed with the residents for Dr. Akien. Quality Measures none Orders Category Date Time Status COVID-19 Screening Questionnaire NOW Care 08/29/25 19:35 Active Instruction Dean STAT Care 08/29/25 15:40 Active Continuous Pulse Oximetry STAT Care 08/29/25 15:40 Completed Decision to Admit X1 Care 08/29/25 19:35 Completed EKG (ED ONLY) *Do not use* NOW Care 08/29/25 12:18 Completed Insert IV NOW Care 08/29/25 15:40 Completed NPO STAT Care 08/29/25 15:40 Active Saline [Insert IV] NOW Care 08/29/25 15:33 Active Strict Intake and Output Routine Care 08/29/25 15:40 Ordered EKG (ED Only) Stat Exams 08/29/25 12:18 Draft XR chest 1V portable Stat Exams 08/29/25 12:31 Completed B-Type Natriuretic Peptide Stat Lab 08/29/25 13:04 Completed B-Type Natriuretic Peptide Stat Lab 08/29/25 15:50 Completed Blood Culture (Lab) Stat Lab 08/29/25 15:57 Received CBC Stat Lab 08/29/25 13:04 Completed COVID-19 Antigen (In-House) Stat Lab 08/29/25 19:41 Completed Comprehensive Metabolic Panel Stat Lab 08/29/25 13:04 Completed Influenza A & B Rapid Panel Stat Lab 08/29/25 19:41 Completed LDH (Lactate Dehydrogenase) Stat Lab 08/29/25 15:50 Completed Lactate (Lactic Acid) Stat Lab 08/29/25 15:50 Completed Lipase Stat Lab 08/29/25 15:50 Completed Magnesium Stat Lab 08/29/25 13:04 Completed Magnesium Stat Lab 08/29/25 15:50 Completed Partial Thromboplastin Time Stat Lab 08/29/25 13:04 Completed Phosphorous Stat Lab 08/29/25 15:50 Completed Procalcitonin Stat Lab 08/29/25 15:50 Completed Prothrombin Time with INR Stat Lab 08/29/25 13:04 Completed Troponin I Stat Lab 08/29/25 13:04 Completed Troponin I Stat Lab 08/29/25 15:50 Completed Urinalysis, C/S if Indicated Stat Lab 08/29/25 14:03 Completed Acetaminophen Ivpb [Ofirmev Inj] Med 08/29/25 15:34 Discontinued 1,000 mg in 100 ml IV NOW Ringers Lactated 1000 ml [Lactated Ringers] 1,000 ml Med 08/29/25 15:34 Discontinued IV 999 mls/hr cefTRIAXone/D5w 1gm IV premix [Rocephin/D5w 1gm IV Med 08/29/25 15:33 Discontinued premix] 1 gm in 50 ml IV X1 Oxygen Delivery NOW RT 08/29/25 15:40 Active Vital Signs Vital signs: Vital Signs Temperature 98.6 F 08/29/25 12:21 Pulse Rate 94 08/29/25 12:21 Respiratory Rate 22 H 08/29/25 12:21 Blood Pressure 143/88 H 08/29/25 12:21 Pulse Oximetry (%) 97 08/29/25 12:21 Oxygen Delivery Method Room Air 08/29/25 12:21 Discharge Plan Plan Patient Disposition: Other Care w/in Hosp ([facility]) Patient condition on transfer: Stable Problem List Clinical Impression: Pneumonia PA/TEST BORER Supervising Physician PA/TEST BORER Supervising Physician: Jsutyn Shore ENP [facility] Clinical Information Provided by: patient Medical Records reviewed [facility] Meds/Rx considered, not ordered None Labs/Rad/Tests considered, not ordered None Chronic Illness/Social Conditions Explain: Castleman disease EKG Interpretation EKG #1: EKG Interpretation: EKG performed at 1232 shows a ventricular rate of 105 QRS of 93 QTc of 393 this is atrial fibrillation with RVR. Labs Lab(s) Interpretation(s): CBC shows 19,000 white count H&H of 10.8 and 33.7 platelets are normal. PT 14.8 INR 1.4 PTT 33.8. CMP shows no significant electrolyte imbalances other than a glucose of 131 no other significant transaminitis T. bili elevation. Alk phos at 199. Troponin is unremarkable BNP at 111 Urine is turbid 1+ protein 8 WBCs 5 RBS is positive leukocyte esterase rare bacteria. Troponin and BNP are negative. Pro-Sixto is negative Lipase is within acceptable limits Imaging Imaging interpretation: interpreted by me Imaging Interpretation(s): Chest x-ray shows a right base pneumonia. Medication Administration(s) Medication Administration History Enoxaparin Sodium (Enoxaparin Sod Inj 40 Mg/0.4 Ml Syringe) 40 mg SC QDAY DARLENE Stop: 09/13/25 08:59 Ceftriaxone Sodium/Dextrose (Rocephin/D5w 1gm Iv Premix) 1 gm in 50 mls @ 100 mls/hr IV QDAY DARLENE Stop: 09/05/25 21:42 Azithromycin 500 mg/ Sodium (Chloride) 250 mls @ 250 mls/hr IV QDAY DARLENE Stop: 09/06/25 08:59 Azithromycin 500 mg/ Sodium (Chloride) 250 mls @ 250 mls/hr IV QDAY ONE Stop: 08/29/25 23:09 Last Admin: 08/29/25 22:17 Dose: 250 mls/hr Documented By: BR Ondansetron HCl (Ondansetron Inj 2 Mg/Ml Inj 2 Ml) 4 mg IVP Q6H PRN; Protocol PRN Reason: NAUSEA OR VOMITING Stop: 09/28/25 21:36 Discontinued Medications Diphenhydramine HCl (Diphenhydramine Inj 50 Mg/Ml Vial) 25 mg IVP X1 ONE Stop: 08/29/25 22:12 Last Admin: 08/29/25 22:20 Dose: 25 mg Documented By: BR Ceftriaxone Sodium/Dextrose (Rocephin/D5w 1gm Iv Premix) 1 gm in 50 mls @ 100 mls/hr IV X1 ONE Stop: 08/29/25 16:02 Last Infusion: 08/29/25 16:29 Dose: Infused Documented By: Admin: 08/29/25 15:59 Dose: 100 mls/hr Documented By: BY Lactated Ringer's (Lactated Ringers) 1,000 mls @ 999 mls/hr IV .Q1H1M ONE Stop: 08/29/25 16:34 Last Infusion: 12/05/25 17:05 Dose: Infused Documented By: Admin: 08/29/25 16:04 Dose: 999 mls/hr Documented By: BY Acetaminophen (Ofirmev Inj) 1,000 mg in 100 mls @ 250 mls/hr IV NOW ONE Stop: 08/29/25 15:57 Last Infusion: 08/29/25 16:20 Dose: Infused Documented By: Admin: 08/29/25 15:56 Dose: 250 mls/hr Documented By: BY Azithromycin 500 mg/ Sodium (Chloride) 250 mls @ 250 mls/hr IV QDAY DARLENE Stop: 09/05/25 21:41 Azithromycin 500 mg/ Sodium (Chloride) 250 mls @ 250 mls/hr IV X1 ONE Stop: 08/29/25 22:59 Sodium Chloride (Ns) 1,000 mls @ 75 mls/hr IV .[id number] ONE Stop: 08/30/25 11:30 Last Admin: 08/29/25 22:20 Dose: 75 mls/hr Documented By: BR Sodium Chloride (Sodium Chloride Rt 10% 15 Ml Nebu) 5 ml INH X1 ONE Stop: 08/29/25 21:38 Last Admin: 08/29/25 22:26 Dose: Not Given Documented By: CG Non-Admin Reason: Patient Refused
[2025-08-29] MEDS: ACETAMINOPHEN IVPB 1,000 MG/100 ML VIAL 250 MG IV (15:56)
[2025-08-29] MEDS: cefTRIAXone/D5w 1gm IV premix 1 GM/50 ML BAG IV (15:59)
[2025-08-29 16:04] LABS: Lactate (Lactic Acid) 2.0 mMol/L (0.4-2.0)
[2025-08-29] MEDS: RINGERS LACTATED 1000 ML 1,000 ML 999 ML IV (16:04)
[2025-08-29 16:29] LABS: B-Type Natriuretic Peptide 97 pg/mL (0-100)
[2025-08-29 16:38] LABS: LDH (Lactate Dehydrogenase) 248 U/L (120-246); Lipase 31 U/L (12-53); Magnesium 2.1 mg/dL (1.6-2.6); Phosphorous 3.6 mg/dL (2.4-5.1); Procalcitonin 0.40 ng/ml (0.0-0.49); Troponin I < 0.020 ng/mL (0.0-0.045)
[2025-08-29 20:12] LABS: COVID-19 Antigen (In-House) Negative (Negative); Influenza A Ag Negative; Influenza B Ag Negative
--- NOTE | 2025-08-29 21:51 | ESHP_ITS ---
<Statement entered by Colt Garcia MD - 08/30/25 06:44> Mr. Pena is a 65-year-old male with a past medical history of Persistent A-fib (on eliquis and metoprolol and diltiazem), sinus sick syndrome s/p pacemaker (placed 2006 and replaced x3 with Dr. 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 Pt complains of exertional dyspnea that progressed to dyspnea at rest. Pt denies any sick contacts, LE edema, orthopnea. Pt is unable to confirm if he had a fever but did report chills. Pt also have been coughing clear phlegm. Pt has not been taking retuximab and methotrexate for the last 3 months because he has an abscess in the perianal region for which he has been seeing wound care. Pt declined physical exam however does report that the wound care have cleared to resume his methotrexate and retuximab infusions. Pt is admitted for IV abx for pneumonia evident on CXR. started on Azithro and rocephin. Cultures pending Patient was seen and examined by me personally. I have directly supervised and reviewed documentation by the team resident and agree with its findings. ------- Plan of care was discussed with the attending, Dr. Nelli Garcia, PGY-2 Documentation for date of: 08/29/25 HPI History of Present Illness History of present illness: HPI: 65-year-old male with a past medical history of A-fib, status post pacemaker placement, hypertension, HFpEF, arthritis, and Castleman syndrome who presented to the ED in the evening of 08/29/2025 with a chief complaint of shortness of breath. Patient mentioned a 1 week history of shortness of breath but denied chest pain or palpitations. Patient was found to have a right basilar pneumonia on chest x-ray. It was reported that the patient desaturated to the mid 80%'s when he was lying down in the ED bed. Of note, the patient has a history of Castleman syndrome and was receiving infusions of infliximab which have been paused for the past 3 months due to an abscess on his buttock that has been followed with wound care. Wound care recently cleared the patient to resume his infusions. Patient was admitted for acute hypoxic respiratory failure secondary to community-acquired pneumonia. ED Course: * Significant vitals on arrival: BP 143/88, respiratory rate 22 * Significant labs: WBC 19.7, hemoglobin 10.8, AST 47, ALT 26, alk phos 199, LDH 248, PT 14.8, INR 1.4 * Imaging: Chest x-ray showed pneumonia in the right base, central vascular congestion and prominence, mild heart failure * Urine: Turbid, 1+ protein, 5 RBCs, 8 WBCs * ED intervention: Patient received 1 g IV Tylenol, 1 g ceftriaxone, 1 L fluids History: * Past medical history: As above in HPI * Surgical history: Pacemaker, knee replacement * Social history: Social drinker, no tobacco, marijuana for nausea control Allergies: * No known drug allergies Home Medications: (Pending med rec) * Allopurinol 300 mg daily. * Bumetanide 1 mg daily. * Digoxin 0.125 mg daily. * Diltiazem to 40 mg daily. * Eliquis 5 mg p.o. twice a day. * Hydrocodone acetaminophen as needed. * Lisinopril 20 mg p.o. daily. * Methotrexate 15 mg weekly. * Methylprednisolone 4 mg daily. * Metoprolol tartrate 100 mg every 12 hours CODE STATUS: Full code Review of Systems Review of Systems Narrative Review of Systems: Review of Systems: * General: Denies fevers, admits to chills. * HEENT: Denies headache, congestion, or sore throat. * Cardiac: Denies chest pain or palpitations. * Pulmonary: Endorses 1-week history of shortness of breath. 1 day history of cough productive of clear sputum. * GI: Denies nausea, vomiting, diarrhea, constipation, melena, or hematochezia. * : Denies dysuria, hematuria, frequency, or urgency. * MSK: Denies pain in the extremities, joints, or myalgias. * Neuro: Denies weakness, numbness, vision changes, or speech difficulty. Exam Vital Signs Temp Pulse Resp BP Pulse Ox O2 Del Method O2 Flow Rate 98.6 F 126 H 20 113/72 98 Humidified Nasal Cannula 4 08/29/25 20:43 08/29/25 20:43 08/29/25 20:43 08/29/25 20:43 08/29/25 20:43 08/29/25 20:43 08/29/25 20:43 Narrative Exam General: Awake and in no acute distress. Conversational and non-toxic appearing. Neurologic: GCS 15. Alert and oriented x3, no gross neurological deficit, and patient able to move all 4 extremities. HEENT: Normocephalic, atraumatic, mucous membranes moist. Pupils reactive to light. Heart: Regular rate and rhythm, normal S1 and S2, no murmurs. Lungs: Saturating 96% on 4 L nasal cannula. Clear to auscultation bilaterally with no wheezing or crackles. Abdomen: Soft, nondistended, nontender, positive bowel sounds. No guarding or rebound tenderness. Extremities: No edema. 2+ radial and dorsalis pedis pulses bilaterally. Skin: Warm. Dry. No rash or ecchymoses. Results: Labs 08/31/25 05:15 08/31/25 05:15 Labs: Short CBC 08/29/25 Range/Units 13:04 WBC 19.7 H (3.8-10.6) Thou/mm3 Hgb 10.8 L (13.5-16.0) g/dL Hct 33.7 L (41.0-53.0) % Plt Count 437 (140-440) Thou/mm3 BMP 08/29/25 13:04 Sodium 137 Potassium 4.1 Chloride 101 Carbon Dioxide 24.3 BUN 22 Creatinine 1.1 Glucose 131 H Calcium 9.1 Cardiac Enzymes 08/29/25 08/29/25 Range/Units 13:04 15:50 Troponin I < 0.020 < 0.020 (0.0-0.045) ng/mL Liver Function 08/29/25 Range/Units 13:04 Total Bilirubin 0.7 (0.3-1.2) mg/dL AST 47 H (0-34) U/L ALT 26 (10-49) U/L Alkaline Phosphatase 199 H (46-116) U/L Albumin 4.0 (3.4-4.8) gm/dL Urine 08/29/25 Range/Units 14:03 Urine Color Yellow (Lt Yel-Yel) Urine Clarity Turbid A (Clear/Hazy) Urine pH 6.0 (5.0-7.0) Ur Specific [place] 1.025 (1.001-1.035) Urine Protein 1+ A (Neg - Trace) Urine Glucose (UA) Negative (Negative) Quality Measures Quality Measures VTE prophylaxis Advance care planning discussed with:: patient Medications Home Medications and Allergies Home Medications ?Medication ?Instructions ?Recorded ?Confirmed ?Type apixaban 5 mg tablet (Eliquis) 5 mg PO BID 12/12/23 History allopurinol 300 mg tablet 300 mg PO DAILY 03/16/2503/19 History lisinopril 20 mg tablet 20 mg PO DAILY 03/16/2503/19 History digoxin 125 mcg (0.125 mg) tablet 0.125 mg PO DAILY 08/30/25 History diltiazem HCl 240 mg capsule,24 240 mg PO Q24H 5 08/30/25 History hr,extended release methotrexate sodium 2.5 mg tablet 15 mg PO .Q WEEKLY 0 05/26/25 08/30/25 History Held on 08/30/25. Instructions: Doctor's Order metoprolol tartrate 100 mg tablet 100 mg PO Q12H 05/2608/30/25 History diltiazem HCl 240 mg 240 mg PO QDAY 08/30/2503/19 History capsule,extended release 24 hr folic acid 1 mg tablet 1 mg PO QDAY 08/30/25 History ondansetron 4 mg disintegrating 4 mg PO TID 08/30/25 1 10/31/24 History tablet spironolactone 25 mg tablet 25 mg PO QDAY 08/30/2503/19 History Allergies Allergy/AdvReac Type Severity Reaction Status Date / Time No Known Allergies Allergy Verified 08/29/25 12:18 Visit Medications Enoxaparin Sodium (Enoxaparin Sod Inj 40 Mg/0.4 Ml Syringe) 40 mg SC QDAY DARLENE Stop: 09/13/25 08:59 Azithromycin 500 mg/ Sodium (Chloride) 250 mls @ 250 mls/hr IV QDAY DARLENE Stop: 09/05/25 21:41 Ceftriaxone Sodium/Dextrose (Rocephin/D5w 1gm Iv Premix) 1 gm in 50 mls @ 100 mls/hr IV QDAY DARLENE Stop: 09/05/25 21:42 Azithromycin 500 mg/ Sodium (Chloride) 250 mls @ 250 mls/hr IV X1 ONE Stop: 08/29/25 22:59 Ondansetron HCl (Ondansetron Inj 2 Mg/Ml Inj 2 Ml) 4 mg IVP Q6H PRN; Protocol PRN Reason: NAUSEA OR VOMITING Stop: 09/28/25 21:36 Discontinued Medications Ceftriaxone Sodium/Dextrose (Rocephin/D5w 1gm Iv Premix) 1 gm in 50 mls @ 100 mls/hr IV X1 ONE Stop: 08/29/25 16:02 Last Infusion: 08/29/25 16:29 Dose: Infused Lactated Ringer's (Lactated Ringers) 1,000 mls @ 999 mls/hr IV .Q1H1M ONE Stop: 08/29/25 16:34 Last Infusion: 08/29/25 17:05 Dose: Infused Acetaminophen (Ofirmev Inj) 1,000 mg in 100 mls @ 250 mls/hr IV NOW ONE Stop: 08/29/25 15:57 Last Infusion: 08/29/25 16:20 Dose: Infused Sodium Chloride (Sodium Chloride Rt 10% 15 Ml Nebu) 5 ml INH X1 ONE Stop: 08/29/25 21:38 Assessment & Plan Plan Summary: 65-year-old male with a past medical history of A-fib, status post pacemaker placement, hypertension, HFpEF, arthritis, and Castleman syndrome who presented to the ED in the evening of 08/29/2025 with a chief complaint of shortness of breath. Patient was found to have a right basilar pneumonia on chest x-ray. It was reported that the patient desaturated to the mid 80%'s when he was lying down in the ED bed. Patient was admitted for acute hypoxic respiratory failure secondary to community-acquired pneumonia. #Acute hypoxic respiratory failure secondary to #Community-acquired pneumonia * Curb 65 score of 2: Respiratory rate over 30 and age over 65. Moderate risk group, 6.8% 30 mortality * Patient presented with 1 week history of shortness of breath and a 1 day history of cough productive of clear sputum * Patient is afebrile * It was reported that the patient desaturated to the mid 80%'s when he was lying down in the ED bed, upon admission he was saturating at 96% on 4 L nasal cannula * WBC of 19.7, has been elevated on previous visits, may be secondary to home methylprednisolone use for arthritis, which the patient denies taking any more, this makes defending his chronically elevated WBC count difficult to defend, though it does make it less likely that it is directly associated with his acute hypoxic respiratory failure secondary to suspected community- acquired pneumonia * Chest x-ray showed right basilar pneumonia, central vascular congestion and prominence, mild heart failure * Patient does not use home oxygen, satting at 96% on 3 L on exam Plan: * Sputum cultures ordered * Blood cultures ordered * Ceftriaxone 1 g daily * Azithromycin 500 mg daily * O2 nasal cannula support as needed for saturation over 96% #A-fib with RVR #Sinus Sick Syndrome S/p pacemaker placement * EKG showed A-fib RVR with a rate of 105, may be contributing to the patient's soft blood pressure * Pt has pacemaker placed in 2006 which has been replaced [address] Marquez Plan: * Metoprolol tartrate 100 mg every 12 hours * Eliquis 5 mg p.o. twice daily * Diltiazem 240 mg p.o. daily #Hypertension * Per chart review and patient history * Presented with hypertension stage II 143/88 Plan: * Pending med rec, holding home lisinopril for now due to soft pressures #Acute normocytic anemia * Patient presented with a hemoglobin of 10.8, decreased from previous hospital visits * Low suspicion of bleeding at this time * May be associated with anemia of chronic disease due to Castleman syndrome Plan: * No direct intervention at this time, monitoring, transfuse if below 7 #HFpEF EF 55-60% * Echo on 03/17/2025 showed EF 55-60%. Diastolic function difficult to evaluate due to A-fib. Severe biatrial dilation. * Patient had no signs of fluid overload on exam: Negative for crackles or peripheral edema * Patient takes bumetanide 1 mg daily at home Plan: * Pending med rec, consider restarting home meds * Strict ins and outs * Fluid restriction 1800 mL #Castleman syndrome * Patient mentions that he has not had his rituximab infusions for the past 3 months due to a gluteal abscess * He was recently cleared by wound care to resume his infusions * Patient denies taking his home methotrexate for this condition Plan: * No direct intervention at this time #Arthritis? * Per patient history * Pending med rec, patient denies taking methylprednisolone at home Plan: * No direct intervention at this time Hospital Maintenance: DVT ppx: SCDs Diet: Cardiac diet IV lines: Peripheral IVs Code status: Full code Dispo: Med/tele, started ceftriaxone and azithromycin for community-acquired pneumonia. Sputum and blood cultures pending. Patient was seen and discussed with my attending physician Dr. Nelli HONG and my senior resident Dr. Jose HONG PGY-2. Daniel Leonard DO PGY-1. Attending Provider Attestation/Addendum After examination of the patient and review of the clinical data I feel that this patient needs admission to the hospital for further treatment/evaluation. Plan of care discussed with patient and is in agreement. I Helen Aiken MD, attest that I was physically present for varner portions of evaluation, and examined patient, labs and imagings and plan of care were discussed with IM residents team, and I agree with the findings and plans documented above.
--- NOTE | 2025-08-29 21:51 | PD.RESHP ---
Documentation for date of: 08/29/25 [facility] History of Present Illness History of present illness: HPI: 65-year-old male with a past medical history of A-fib, status post pacemaker placement, hypertension, HFpEF, arthritis, and Castleman syndrome who presented to the ED in the evening of 08/29/2025 with a chief complaint of shortness of breath. Patient mentioned a 1 week history of shortness of breath but denied chest pain or palpitations. Patient was found to have a right basilar pneumonia on chest x-ray. It was reported that the patient desaturated to the mid 80%'s when he was lying down in the ED bed. Of note, the patient has a history of Castleman syndrome and was receiving infusions of infliximab which have been paused for the past 3 months due to an abscess on his buttock that has been followed with wound care. Wound care recently cleared the patient to resume his infusions. Patient was admitted for acute hypoxic respiratory failure secondary to community-acquired pneumonia. ED Course: Significant vitals on arrival: BP 143/88, respiratory rate 22 Significant labs: WBC 19.7, hemoglobin 10.8, AST 47, ALT 26, alk phos 199, LDH 248, PT 14.8, INR 1.4 Imaging: Chest x-ray showed pneumonia in the right base, central vascular congestion and prominence, mild heart failure Urine: Turbid, 1+ protein, 5 RBCs, 8 WBCs ED intervention: Patient received 1 g IV Tylenol, 1 g ceftriaxone, 1 L fluids History: Past medical history: As above in HPI Surgical history: Pacemaker, knee replacement Social history: Social drinker, no tobacco, marijuana for nausea control Allergies: No known drug allergies Home Medications: (Pending med rec) Allopurinol 300 mg daily. Bumetanide 1 mg daily. Digoxin 0.125 mg daily. Diltiazem to 40 mg daily. Eliquis 5 mg p.o. twice a day. Hydrocodone acetaminophen as needed. Lisinopril 20 mg p.o. daily. Methotrexate 15 mg weekly. Methylprednisolone 4 mg daily. Metoprolol tartrate 100 mg every 12 hours CODE STATUS: Full code Review of Systems Review of Systems Narrative Review of Systems: Review of Systems: General: Denies fevers, admits to chills. HEENT: Denies headache, congestion, or sore throat. Cardiac: Denies chest pain or palpitations. Pulmonary: Endorses 1-week history of shortness of breath. 1 day history of cough productive of clear sputum. GI: Denies nausea, vomiting, diarrhea, constipation, melena, or hematochezia. : Denies dysuria, hematuria, frequency, or urgency. MSK: Denies pain in the extremities, joints, or myalgias. Neuro: Denies weakness, numbness, vision changes, or speech difficulty. Exam Vital Signs Temp Pulse Resp BP Pulse Ox O2 Del Method O2 Flow Rate 98.6 F 126 H 20 113/72 98 Humidified Nasal Cannula 4 08/29/25 20:43 08/29/25 20:43 08/29/25 20:43 08/29/25 20:43 08/29/25 20:43 08/29/25 20:43 08/29/25 20:43 Narrative Exam General: Awake and in no acute distress. Conversational and non-toxic appearing. Neurologic: GCS 15. Alert and oriented x3, no gross neurological deficit, and patient able to move all 4 extremities. HEENT: Normocephalic, atraumatic, mucous membranes moist. Pupils reactive to light. Heart: Regular rate and rhythm, normal S1 and S2, no murmurs. Lungs: Saturating 96% on 4 L nasal cannula. Clear to auscultation bilaterally with no wheezing or crackles. Abdomen: Soft, nondistended, nontender, positive bowel sounds. No guarding or rebound tenderness. Extremities: No edema. 2+ radial and dorsalis pedis pulses bilaterally. Skin: Warm. Dry. No rash or ecchymoses. Results: Labs 08/31/25 05:15 08/31/25 05:15 Labs: Short CBC 08/29/25 Range/Units 13:04 WBC 19.7 H (3.8-10.6) Thou/mm3 Hgb 10.8 L (13.5-16.0) g/dL Hct 33.7 L (41.0-53.0) % Plt Count 437 (140-440) Thou/mm3 BMP 08/29/25 13:04 Sodium 137 Potassium 4.1 Chloride 101 Carbon Dioxide 24.3 BUN 22 Creatinine 1.1 Glucose 131 H Calcium 9.1 Cardiac Enzymes 08/29/25 08/29/25 Range/Units 13:04 15:50 Troponin I < 0.020 < 0.020 (0.0-0.045) ng/mL Liver Function 08/29/25 Range/Units 13:04 Total Bilirubin 0.7 (0.3-1.2) mg/dL AST 47 H (0-34) U/L ALT 26 (10-49) U/L Alkaline Phosphatase 199 H (46-116) U/L Albumin 4.0 (3.4-4.8) gm/dL Urine 08/29/25 Range/Units 14:03 Urine Color Yellow (Lt Yel-Yel) Urine Clarity Turbid A (Clear/Hazy) Urine pH 6.0 (5.0-7.0) Ur Specific [place] 1.025 (1.001-1.035) Urine Protein 1+ A (Neg - Trace) Urine Glucose (UA) Negative (Negative) Quality Measures Quality Measures VTE prophylaxis Advance care planning discussed with:: patient Medications Home Medications and Allergies Home Medications ?Medication ?Instructions ?Recorded ?Confirmed ?Type apixaban 5 mg tablet (Eliquis) 5 mg PO BID 12/12/23 08/30/25 History allopurinol 300 mg tablet 300 mg PO DAILY 03/16/25 08/30/25 History lisinopril 20 mg tablet 20 mg PO DAILY 03/16/25 08/30/25 History digoxin 125 mcg (0.125 mg) tablet 0.125 mg PO DAILY 05/26/25 08/30/25 History diltiazem HCl 240 mg capsule,24 240 mg PO Q24H 05/26/25 08/30/25 History hr,extended release methotrexate sodium 2.5 mg tablet 15 mg PO .Q WEEKLY 05/26/25 08/30/25 History Held on 08/30/25. Instructions: Doctor's Order metoprolol tartrate 100 mg tablet 100 mg PO Q12H 05/26/25 08/30/25 History diltiazem HCl 240 mg 240 mg PO QDAY 08/30/25 08/30/25 History capsule,extended release 24 hr folic acid 1 mg tablet 1 mg PO QDAY 08/30/25 08/30/25 History ondansetron 4 mg disintegrating 4 mg PO TID 08/30/25 08/30/25 History tablet spironolactone 25 mg tablet 25 mg PO QDAY 08/30/25 08/30/25 History Allergies Allergy/AdvReac Type Severity Reaction Status Date / Time No Known Allergies Allergy Verified 08/29/25 12:18 Visit Medications Enoxaparin Sodium (Enoxaparin Sod Inj 40 Mg/0.4 Ml Syringe) 40 mg SC QDAY DARLENE Stop: 09/13/25 08:59 Azithromycin 500 mg/ Sodium (Chloride) 250 mls @ 250 mls/hr IV QDAY DARLENE Stop: 09/05/25 21:41 Ceftriaxone Sodium/Dextrose (Rocephin/D5w 1gm Iv Premix) 1 gm in 50 mls @ 100 mls/hr IV QDAY DARLENE Stop: 09/05/25 21:42 Azithromycin 500 mg/ Sodium (Chloride) 250 mls @ 250 mls/hr IV X1 ONE Stop: 08/29/25 22:59 Ondansetron HCl (Ondansetron Inj 2 Mg/Ml Inj 2 Ml) 4 mg IVP Q6H PRN; Protocol PRN Reason: NAUSEA OR VOMITING Stop: 09/28/25 21:36 Discontinued Medications Ceftriaxone Sodium/Dextrose (Rocephin/D5w 1gm Iv Premix) 1 gm in 50 mls @ 100 mls/hr IV X1 ONE Stop: 08/29/25 16:02 Last Infusion: 08/29/25 16:29 Dose: Infused Lactated Ringer's (Lactated Ringers) 1,000 mls @ 999 mls/hr IV .Q1H1M ONE Stop: 08/29/25 16:34 Last Infusion: 08/29/25 17:05 Dose: Infused Acetaminophen (Ofirmev Inj) 1,000 mg in 100 mls @ 250 mls/hr IV NOW ONE Stop: 08/29/25 15:57 Last Infusion: 08/29/25 16:20 Dose: Infused Sodium Chloride (Sodium Chloride Rt 10% 15 Ml Nebu) 5 ml INH X1 ONE Stop: 08/29/25 21:38 Assessment & Plan Plan Summary: 65-year-old male with a past medical history of A-fib, status post pacemaker placement, hypertension, HFpEF, arthritis, and Castleman syndrome who presented to the ED in the evening of 08/29/2025 with a chief complaint of shortness of breath. Patient was found to have a right basilar pneumonia on chest x-ray. It was reported that the patient desaturated to the mid 80%'s when he was lying down in the ED bed. Patient was admitted for acute hypoxic respiratory failure secondary to community-acquired pneumonia. #Acute hypoxic respiratory failure secondary to #Community-acquired pneumonia Curb 65 score of 2: Respiratory rate over 30 and age over 65. Moderate risk group, 6.8% 30 mortality Patient presented with 1 week history of shortness of breath and a 1 day history of cough productive of clear sputum Patient is afebrile It was reported that the patient desaturated to the mid 80%'s when he was lying down in the ED bed, upon admission he was saturating at 96% on 4 L nasal cannula WBC of 19.7, has been elevated on previous visits, may be secondary to home methylprednisolone use for arthritis, which the patient denies taking any more, this makes defending his chronically elevated WBC count difficult to defend, though it does make it less likely that it is directly associated with his acute hypoxic respiratory failure secondary to suspected community-acquired pneumonia Chest x-ray showed right basilar pneumonia, central vascular congestion and prominence, mild heart failure Patient does not use home oxygen, satting at 96% on 3 L on exam Plan: Sputum cultures ordered Blood cultures ordered Ceftriaxone 1 g daily Azithromycin 500 mg daily O2 nasal cannula support as needed for saturation over 96% #A-fib with RVR #Sinus Sick Syndrome S/p pacemaker placement EKG showed A-fib RVR with a rate of 105, may be contributing to the patient's soft blood pressure Pt has pacemaker placed in 2006 which has been replaced [address] Marquez Plan: Metoprolol tartrate 100 mg every 12 hours Eliquis 5 mg p.o. twice daily Diltiazem 240 mg p.o. daily #Hypertension Per chart review and patient history Presented with hypertension stage II 143/88 Plan: Pending med rec, holding home lisinopril for now due to soft pressures #Acute normocytic anemia Patient presented with a hemoglobin of 10.8, decreased from previous hospital visits Low suspicion of bleeding at this time May be associated with anemia of chronic disease due to Castleman syndrome Plan: No direct intervention at this time, monitoring, transfuse if below 7 #HFpEF EF 55-60% Echo on 03/17/2025 showed EF 55-60%. Diastolic function difficult to evaluate due to A-fib. Severe biatrial dilation. Patient had no signs of fluid overload on exam: Negative for crackles or peripheral edema Patient takes bumetanide 1 mg daily at home Plan: Pending med rec, consider restarting home meds Strict ins and outs Fluid restriction 1800 mL #Castleman syndrome Patient mentions that he has not had his rituximab infusions for the past 3 months due to a gluteal abscess He was recently cleared by wound care to resume his infusions Patient denies taking his home methotrexate for this condition Plan: No direct intervention at this time #Arthritis? Per patient history Pending med rec, patient denies taking methylprednisolone at home Plan: No direct intervention at this time Hospital Maintenance: DVT ppx: SCDs Diet: Cardiac diet IV lines: Peripheral IVs Code status: Full code Dispo: Med/tele, started ceftriaxone and azithromycin for community-acquired pneumonia. Sputum and blood cultures pending. Patient was seen and discussed with my attending physician Dr. Nelli HONG and my senior resident Dr. Jose HONG PGY-2. Daniel Leonard DO PGY-1. Attending Provider Attestation/Addendum After examination of the patient and review of the clinical data I feel that this patient needs admission to the hospital for further treatment/evaluation. Plan of care discussed with patient and is in agreement. I Helen Aiken MD, attest that I was physically present for varner portions of evaluation, and examined patient, labs and imagings and plan of care were discussed with IM residents team, and I agree with the findings and plans documented above.
[2025-08-29] MEDS: AZITHROMYCIN INJ 500 MG in SODIUM CHLORIDE 0.9% 250 ML 250 ML 250 MG IV (22:17)
[2025-08-29] MEDS: SODIUM CHLORIDE 0.9% 1000 ML 1,000 ML 75 ML IV (22:20)
--- NOTE | 2025-08-29 22:26 | PC.RT ---
Sputum sample collected and sent to lab.
[2025-08-30] VITALS (12 sets, daily range): BP systolic 98–129; BP diastolic 56–84; PULSE 87–118; RESP 16–28; TEMP 36.6–38.5; O2SAT 92–99; BMI 32.7
--- NOTE | 2025-08-30 02:06 | PC.NURSE ---
will bring pts home meds in AM, pt khadijah remember his home meds.
[2025-08-30 05:41] LABS: Basophils # (Auto) 0.0 Thou/mm3 (0.0-0.2); Basophils % (Auto) 0 % (0-2.5); Eosinophils # (Auto) 0.1 Thou/mm3 (0.0-0.5); Eosinophils % (Auto) 1 % (0-10); Hematocrit 29.5 % (41.0-53.0); Hemoglobin 9.6 g/dL (13.5-16.0); Immature Granulocytes Auto 0.14 Thou/mm3 (0.00-0.00); Lymphocytes # (Auto) 0.8 Thou/mm3 (1.0-4.8); Lymphocytes % (Auto) 6 % (10-50); Mean Corpuscular HGB Conc 32.5 g/dl (31.0-37.0); Mean Corpuscular Hemoglobin 30.9 pg (25.0-35.0); Mean Corpuscular Volume 95 fL (80-100); Monocytes # (Auto) 0.9 Thou/mm3 (0.0-0.8); Monocytes % (Auto) 6 % (0-12); Neutrophils # (Auto) 12.7 Thou/mm3 (1.8-7.7); Neutrophils % (Auto) 86 % (37-80); Nucleated Red Blood Cell # 0.00 Thou/mm3 (0.00-0.00); Nucleated Red Blood Cell % 0 /100 WBC (0); Platelet Count 310 Thou/mm3 (140-440); RDW Standard Deviation 49.9 fL (35.1-43.9); Red Blood Count 3.11 Miln/mm3 (4.50-5.90); White Blood Count 14.8 Thou/mm3 (3.8-10.6)
[2025-08-30 06:20] LABS: Alanine Aminotransferase 18 U/L (10-49); Albumin, Serum 3.4 gm/dL (3.4-4.8); Albumin/Globulin Ratio 1.3 (1.2-2.2); Alkaline Phosphatase 164 U/L (46-116); Anion Gap 11 (7-16); Aspartate Amino Transferase 21 U/L (0-34); BUN/Creatinine Ratio 22 Ratio (12-20); Bilirubin,Total 0.7 mg/dL (0.3-1.2); Blood Urea Nitrogen 22 mg/dL (9-23); Calcium 8.4 mg/dL (8.3-10.6); Calcium (Corrected) 8.9 mg/dL (8.5-10.1); Carbon Dioxide 23.0 mMol/L (20.0-31.0); Cardiac Risk Estimate 7.0 RATIO (4.0-6.7); Chloride 105 mMol/L (98-107); Cholesterol 71 mg/dL (132-200); Creatinine (Component) 1.0 mg/dL (0.6-1.3); Estimated Creatinine Clearance 94.2 mL/min (>60); Globulin 2.7 gm/dL (2.3-3.5); Glucose 117 mg/dL (74-106); HDL Cholesterol < 10 mg/dL (40-60); LDL Cholesterol,Calculated 39 mg/dL (0-130); Magnesium 2.0 mg/dL (1.6-2.6); Osmolality,Calculated 281 (275-295); Potassium 4.0 mMol/L (3.4-5.1); Sodium 139 mMol/L (136-145); Total Protein 6.1 gm/dL (5.7-8.2); Triglycerides 112 mg/dL (30-150); eGFR > 60 See Note
[2025-08-30] MEDS: DILTIAZEM CD 120 MG CAPCR 240 MG PO (08:42)
[2025-08-30] MEDS: METOPROLOL TARTRATE 25 MG TABLET 100 MG PO ×2 (08:42→20:04)
[2025-08-30] MEDS: APIXABAN 2.5 MG TABLET 5 MG PO ×2 (08:43→20:05)
--- NOTE | 2025-08-30 11:56 | PC.NURSE ---
Pt has a fever of 101.3. No other symptoms. Called Dr. Richardson and made aware. Tylenol ordered. will continue to assess.
[2025-08-30] MEDS: PIPER/TAZO 3.375 GM PREMIX 3.375 GM/50 ML BAG IV ×2 (12:21→21:14)
[2025-08-30] MEDS: ACETAMINOPHEN 325 MG TABLET 650 MG PO (12:21)
[2025-08-30] MEDS: ONDANSETRON INJ 2 MG/ML INJ 2 ML 4 MG IVP (12:22)
--- NOTE | 2025-08-30 12:30 | ESPR_ITS ---
<Statement entered by Debra Benitez MD - 08/30/25 15:58> Patient was seen and examined at bedside. His WBC remain mildly elevated which is his baseline at 14.8, however his hemoglobin down trended from 14-10.8 we will continue to monitor as there is no signs of bleeding at this time plus his platelets down trended to 310 most likely hemodilutional. His x-ray showed right-sided infiltrate, no cavitary lesion. BNP and troponin all within normal limits. This morning patient spiked fever we broaden the patient's antibiotic to Zosyn and doxycycline and order start the patient MRSA screening and added diuretics which is his home medication. Patient was asking regarding his methotrexate medication we told him that we can hold on resuming methotrexate after he recovered. We also sent for the patient cocci screening antibodies, last cocci screening was 6 months ago. - Patient's plan and care discussed with my attending, Dr. Will Benitez MD Internal Medicine PGY-3 Documentation for date of: 08/30/25 Subjective Subjective Interval history: Mr. Pena is a 65-year-old male with a past medical history of Persistent A-fib (on eliquis and metoprolol and diltiazem), sinus sick syndrome s/p pacemaker (placed 2006 and replaced x3 with Dr. 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 The patient was seen examined at bedside with family present. He does endorse shortness of breath with movement and ambulation, and nausea whenever he tried to cough out phlegm. Per patient no hx COPD or asthma or using oxygen at home. Denies smoking and exposure to smokes and chemical. Vitals reviewed and patient had a febrile episode of 101.3 this AM for which Tylenol was given. Patient was saturating 95% on 6 L nasal cannula. Patient regularly gets methotrexate and retuximab infusion for Casteman syndrome, hence he is immunosuppresed escalated antibiotic coverage to Zosyn and doxycycline. Patient states he supposed to get his next infusion on Monday however will not resume infusion until pulmonary infection resolve. Resume home med Bumex 1 mg p.o. daily p.o. MRSA bsal screening were ordered. Labs were reviewed and WBC improving to 14.8. H&H downstrended most likely,hemodilutional. No signs of active bleeding. Exam Vital Signs Temp Pulse Resp BP Pulse Ox O2 Del Method O2 Flow Rate 101.3 F H 96 22 H 108/67 93 L Nasal Cannula 6 08/30/25 12:21 08/30/25 08:42 08/30/25 08:00 08/30/25 08:42 08/30/25 08:00 08/30/25 08:00 08/30/25 08:00 Narrative Exam General: Febrile, on 6 L NC .Conversational and non-toxic appearing. Skin: Warm, dry, intact. No rash or ecchymoses. Head: Normocephalic, atraumatic. Eye: Normal conjunctiva, PERRL. Throat: Oral mucosa moist. No obvious lesions in oropharynx. Cardiovascular: Regular rate and rhythm, no murmur, +S1/S2. Respiratory: Lungs are clear to auscultation, respirations unlabored, no crackles, no wheezing. Gastrointestinal: Soft, nontender, non-distended. No guarding or rebound tenderness. Extremities: No edema, no cyanosis, no clubbing. Neuro: Alert and oriented x3.No focal deficits observed. Conversant, moving all extremities. No overt cerebellar signs/incoordination. Psychiatric: Cooperative, appropriate affect Objective Labs 08/30/25 04:54 08/30/25 04:54 Labs: Laboratory Results - last 24 hr 08/29/25 08/29/25 08/29/25 13:04 14:03 15:50 WBC 19.7 H RBC 3.58 L Hgb 10.8 L Hct 33.7 L MCV 94 MCH 30.2 MCHC 32.0 RDW Std Deviation 49.6 H Plt Count 437 Neut % (Auto) 84 H Lymph % (Auto) 7 L [place] % (Auto) 7 Eos % (Auto) 1 Baso % (Auto) 0 Neut # (Auto) 16.5 H Lymph # (Auto) 1.4 [place] # (Auto) 1.5 H Eos # (Auto) 0.1 Baso # (Auto) 0.0 Immature Gran # (Auto) 0.20 H Absolute Nucleated RBC 0.00 Immature Gran % 1 H Nucleated RBC % 0 PT 14.8 H INR 1.4 H APTT 33.8 Sodium 137 Potassium 4.1 Chloride 101 Carbon Dioxide 24.3 Anion Gap 12 BUN 22 Creatinine 1.1 Estim Creat Clear Calc 84.3 eGFR > 60 BUN/Creatinine Ratio 20 Glucose 131 H Calculated Osmolality 279 Lactic Acid 2.0 Calcium 9.1 Corrected Calcium 9.1 Phosphorus 3.6 Magnesium 2.2 2.1 Total Bilirubin 0.7 AST 47 H ALT 26 Alkaline Phosphatase 199 H Lactate Dehydrogenase 248 H Troponin I < 0.020 < 0.020 B-Natriuretic Peptide 111 H 97 Total Protein 7.4 Albumin 4.0 Globulin 3.4 Albumin/Globulin Ratio 1.2 Triglycerides Cholesterol LDL Cholesterol, Calc HDL Cholesterol Cholesterol/HDL Ratio Lipase 31 Procalcitonin 0.40 Ur Collection Type Clean Catch Urine Color Yellow Urine Clarity Turbid A Urine pH 6.0 Ur Specific [place] 1.025 Urine Protein 1+ A Urine Glucose (UA) Negative Urine Ketones Trace Urine Blood Trace Urine Nitrite Negative Urine Bilirubin Negative Urine Urobilinogen (Auto) 2.0 Ur Leukocyte Esterase Positive Urine RBC 5 H Urine WBC 8 H Ur Squamous Epith Cells 2 Urine Bacteria Rare Ur Culture Indicated? Not Indicated Influenza A (Rapid) Influenza B (Rapid) SARS-CoV-2 Ag (Rapid) 08/29/25 08/30/25 19:41 04:54 WBC 14.8 H RBC 3.11 L Hgb 9.6 L Hct 29.5 L MCV 95 MCH 30.9 MCHC 32.5 RDW Std Deviation 49.9 H Plt Count 310 D Neut % (Auto) 86 H Lymph % (Auto) 6 L [place] % (Auto) 6 Eos % (Auto) 1 Baso % (Auto) 0 Neut # (Auto) 12.7 H Lymph # (Auto) 0.8 L [place] # (Auto) 0.9 H Eos # (Auto) 0.1 Baso # (Auto) 0.0 Immature Gran # (Auto) 0.14 H Absolute Nucleated RBC 0.00 Immature Gran % 1 H Nucleated RBC % 0 PT INR APTT Sodium 139 Potassium 4.0 Chloride 105 Carbon Dioxide 23.0 Anion Gap 11 BUN 22 Creatinine 1.0 Estim Creat Clear Calc 94.2 eGFR > 60 BUN/Creatinine Ratio 22 H Glucose 117 H Calculated Osmolality 281 Lactic Acid Calcium 8.4 Corrected Calcium 8.9 Phosphorus Magnesium 2.0 Total Bilirubin 0.7 AST 21 ALT 18 Alkaline Phosphatase 164 H D Lactate Dehydrogenase Troponin I B-Natriuretic Peptide Total Protein 6.1 Albumin 3.4 D Globulin 2.7 Albumin/Globulin Ratio 1.3 Triglycerides 112 Cholesterol 71 L LDL Cholesterol, Calc 39 HDL Cholesterol < 10 L Cholesterol/HDL Ratio 7.0 H Lipase Procalcitonin Ur Collection Type Urine Color Urine Clarity Urine pH Ur Specific [place] Urine Protein Urine Glucose (UA) Urine Ketones Urine Blood Urine Nitrite Urine Bilirubin Urine Urobilinogen (Auto) Ur Leukocyte Esterase Urine RBC Urine WBC Ur Squamous Epith Cells Urine Bacteria Ur Culture Indicated? Influenza A (Rapid) Negative Influenza B (Rapid) Negative SARS-CoV-2 Ag (Rapid) Negative Quality Measures Quality Measures VTE prophylaxis Advance care planning discussed with:: patient Assessment & Plan Assessment Current Active Medications: Generic Name Dose Route Start Last Admin Trade Name Freq PRN Reason Stop Dose Admin Acetaminophen 650 mg 08/30/25 11:56 08/30/25 12:21 Acetaminophen 325 Mg Tablet PO 09/29/25 11:55 650 mg Q6HR PRN Administration Fever > 100.4 Allopurinol 300 mg 08/30/25 09:00 08/30/25 08:43 Allopurinol 100 Mg Tablet PO 09/29/25 08:59 300 mg QDAY DARLENE Administration Apixaban 5 mg 08/30/25 09:00 08/30/25 08:43 Apixaban 2.5 Mg Tablet PO 09/29/25 08:59 5 mg BID DARLENE Administration Bumetanide 1 mg 08/31/25 09:00 Bumetanide 0.5 Mg Tablet PO 09/30/25 08:59 QDAY DARLENE Diltiazem HCl 240 mg 08/30/25 09:00 08/30/25 08:42 Diltiazem Cd 120 Mg Capcr PO 09/29/25 08:59 240 mg QDAY DARLENE Administration Doxycycline Hyclate 100 mg 08/30/25 21:00 Doxycycline 100 Mg Tablet PO 09/06/25 20:59 BID DARLENE Piperacillin/Tazobactam/Dextrose 3.375 gm in 50 mls @ 12.5 mls/hr 08/30/25 22:00 Zosyn IV 09/06/25 21:59 Q8HR [facility] Protocol Metoprolol Tartrate 100 mg 08/30/25 09:00 08/30/25 08:42 Metoprolol Tartrate 25 Mg Tablet PO 09/29/25 08:59 100 mg BID DARLENE Administration Ondansetron HCl 4 mg 08/29/25 21:37 08/30/25 12:22 Ondansetron Inj 2 Mg/Ml Inj 2 Ml IVP 09/28/25 21:36 4 mg Q6H PRN Administration NAUSEA OR VOMITING Protocol Plan 65-year-old male with a past medical history of A-fib, status post pacemaker placement, hypertension, HFpEF, arthritis, and Castleman syndrome who presented to the ED in the evening of 08/29/2025 with a chief complaint of shortness of breath. Patient was found to have a right basilar pneumonia on chest x-ray. It was reported that the patient desaturated to the mid 80%'s when he was lying down in the ED bed.Patient was admitted for acute hypoxic respiratory failure secondary to community-acquired pneumonia. #Acute hypoxic respiratory failure secondary to #Right base pneumonia, CAP Curb 65 score of 2: Respiratory rate over 30 and age over 65. Moderate risk group, 6.8% 30 mortality Patient presented with 1 week history of shortness of breath and a 1 day history of cough productive of clear sputum. Patient is afebrile. It was reported that the patient desaturated to the mid 80%'s when he was lying down in the ED bed, upon admission he was saturating at 96% on 4 L nasal cannula. WBC of 19.7, has been elevated on previous visits, may be secondary to home methylprednisolone use for arthritis, which the patient denies taking any more, this makes defending his chronically elevated WBC count difficult to defend, though it does make it less likely that it is directly associated with his acute hypoxic respiratory failure secondary to suspected community-acquired pneumonia -Chest x-ray showed right basilar pneumonia, central vascular congestion and prominence, mild heart failure - Patient does not use home oxygen, satting at 96% on 3 L on exam - 08/30 STOPPED Ceftriaxone and Azithromycin Plan: * Zosyn 3.375gm q8h (08/30- * Doxycycline 100mg BID (08/30- * Resume Bumex 1 mg p.o. daily * Zofran 4 mg for nausea and vomit * Acetaminophen 650 mg p.o. for fever and pain * MRSA nasal screen , pending * Blood cultures ordered, pending * Sputum cultures ordered, pending * O2 nasal cannula support as needed for saturation over 96% #A-fib with RVR #Sinus Sick Syndrome S/p pacemaker placement #Castleman syndrome EKG showed A-fib RVR with a rate of 105, may be contributing to the patient's soft blood pressure Pt has pacemaker placed in 2006 which has been replaced [address] Marquez -Patient mentions that he has not had his rituximab and methotrexate infusions for the past 3 months due to a gluteal abscess. He was recently cleared by wound care to resume his infusions CHADsVAS score 4 -?6.7% risk of stroke/TIA/systemic embolism HAS BLED score 2 Plan: * Metoprolol tartrate 100 mg every 12 hours * Eliquis 5 mg p.o. twice daily * Diltiazem 240 mg p.o. daily * - Keep K > 4 and Mg > 2 #HFpEF EF 55-60% Echo on 03/17/2025 showed EF 55-60%. Diastolic function difficult to evaluate due to A-fib. Severe biatrial dilation. Patient had no signs of fluid overload on exam: Negative for crackles or peripheral edema. Patient takes bumetanide 1 mg daily at home Plan: * Bumex 1mg Qday * Strict ins and outs * Fluid restriction 1800 mL #Hypertension Presented with hypertension stage II 143/88 Plan - holding home lisinopril for now due to soft pressures #Acute normocytic anemia Patient presented with a hemoglobin of 10.8, decreased from previous hospital visits. Low suspicion of bleeding at this time. May be associated with anemia of chronic disease due to Castleman syndrome Plan: * Daily CBCS * Transfuse if below 7 Hospital management: Lines: peripheral IV Diet: cardiac Bowel: Senna/docusate DVT prophylaxis: Eliquis 5mg Disposition: Med/tele,, AHRF 2/2PNA escalate from ceftriaxone/azithromycin to Zosyn and doxycycline. CODE STATUS: Full code Patient assessed under supervision of attending physician Dr.K Solis and senior resident Dr. Benitez PGY-3 Elaine Gomez MD PGY-1, Internal Medicine Please note: this document was transcribed using voice recognition technology; minor inaccuracies may be present. Attending Provider Attestation/Addendum Jose, Marcy Solis, , attest that I was physically present for the varner portions of the service and evaluated the patient with the resident and I reviewed and discussed the case with the resident and agree with the resident's findings and plans of care as documented above Patient is a 65-year-old male past medical history of Castleman syndrome and on immunosuppression with methotrexate and Rituxan. He also has a history of A-fib on Eliquis and sick sinus syndrome status post pacemaker as well as HFpEF in the past. Patient states that he has been having worsening shortness of breath for the past week. He denies any recent sick contacts or travel. He also endorses having thick productive sputum. He endorses having decreased activity due to dyspnea on exertion. He is noted to have a right lower lobe pneumonia noted on chest x-ray. He is currently on 6 L nasal cannula saturating 95%. He states that he is feeling somewhat better. However, patient continues to have fevers. Antibiotics were broadened to cover MRSA, atypical and gram-negative rods pneumonia with doxycycline and Zosyn. Will continue with antibiotics and follow-up with blood and sputum cultures. Patient was advised to hold his methotrexate and rituximab treatments due to acute infection. Patient states that he has not been on the medication for over a month due to a infected wound on his right buttock that is now healed.
[2025-08-30] MEDS: METOCLOPRAMIDE INJ 5 MG/ML VIAL 2 ML 10 MG IVP (19:39)
--- NOTE | 2025-08-30 19:50 | PC.NURSE ---
Pt went to the toilet to have BM and after going back to bed pt got short of breath, O2 sats on 95% but labored breathing. MD Villasenor made aware, no new order made at this time.
[2025-08-30] MEDS: DOXYCYCLINE 100 MG TABLET PO (20:05)
[2025-08-31] VITALS (15 sets, daily range): BP systolic 96–141; BP diastolic 61–80; PULSE 96–135; RESP 18–27; TEMP 36.2–37.8; O2SAT 90–96
[2025-08-31] MEDS: PIPER/TAZO 3.375 GM PREMIX 3.375 GM/50 ML BAG IV ×3 (05:44→21:26)
[2025-08-31 06:05] LABS: Basophils # (Auto) 0.0 Thou/mm3 (0.0-0.2); Basophils % (Auto) 0 % (0-2.5); Eosinophils # (Auto) 0.1 Thou/mm3 (0.0-0.5); Eosinophils % (Auto) 1 % (0-10); Hematocrit 29.4 % (41.0-53.0); Hemoglobin 9.3 g/dL (13.5-16.0); Immature Granulocytes Auto 0.19 Thou/mm3 (0.00-0.00); Lymphocytes # (Auto) 1.2 Thou/mm3 (1.0-4.8); Lymphocytes % (Auto) 9 % (10-50); Mean Corpuscular HGB Conc 31.6 g/dl (31.0-37.0); Mean Corpuscular Hemoglobin 30.6 pg (25.0-35.0); Mean Corpuscular Volume 97 fL (80-100); Monocytes # (Auto) 1.1 Thou/mm3 (0.0-0.8); Monocytes % (Auto) 8 % (0-12); Neutrophils # (Auto) 11.5 Thou/mm3 (1.8-7.7); Neutrophils % (Auto) 81 % (37-80); Nucleated Red Blood Cell # 0.00 Thou/mm3 (0.00-0.00); Nucleated Red Blood Cell % 0 /100 WBC (0); Platelet Count 330 Thou/mm3 (140-440); RDW Standard Deviation 51.6 fL (35.1-43.9); Red Blood Count 3.04 Miln/mm3 (4.50-5.90); White Blood Count 14.1 Thou/mm3 (3.8-10.6)
[2025-08-31 06:27] LABS: Alanine Aminotransferase 15 U/L (10-49); Albumin, Serum 3.2 gm/dL (3.4-4.8); Albumin/Globulin Ratio 1.1 (1.2-2.2); Alkaline Phosphatase 176 U/L (46-116); Anion Gap 10 (7-16); Aspartate Amino Transferase 20 U/L (0-34); BUN/Creatinine Ratio 21 Ratio (12-20); Bilirubin,Total 0.7 mg/dL (0.3-1.2); Blood Urea Nitrogen 21 mg/dL (9-23); Calcium 8.4 mg/dL (8.3-10.6); Calcium (Corrected) 9.0 mg/dL (8.5-10.1); Carbon Dioxide 25.2 mMol/L (20.0-31.0); Chloride 105 mMol/L (98-107); Creatinine (Component) 1.0 mg/dL (0.6-1.3); Estimated Creatinine Clearance 94.2 mL/min (>60); Globulin 3.0 gm/dL (2.3-3.5); Glucose 117 mg/dL (74-106); Magnesium 2.0 mg/dL (1.6-2.6); Osmolality,Calculated 283 (275-295); Potassium 4.2 mMol/L (3.4-5.1); Sodium 140 mMol/L (136-145); Total Protein 6.2 gm/dL (5.7-8.2); eGFR > 60 See Note
[2025-08-31] MEDS: LEVALBUTEROL RT 1.25 MG/0.5 ML NEBU INH ×2 (07:29→14:47)
[2025-08-31] MEDS: IPRATROPIUM RT 0.5 MG/ 2.5 ML NEBU INH ×2 (07:29→14:47)
[2025-08-31] MEDS: APIXABAN 2.5 MG TABLET 5 MG PO ×2 (09:48→20:27)
[2025-08-31] MEDS: DOXYCYCLINE 100 MG TABLET PO ×2 (09:48→20:27)
[2025-08-31] MEDS: METOPROLOL TARTRATE 25 MG TABLET 100 MG PO ×2 (09:49→20:27)
[2025-08-31] MEDS: DILTIAZEM CD 120 MG CAPCR 240 MG PO (09:57)
[2025-08-31] MEDS: BUMETANIDE 0.5 MG TABLET 1 MG PO (09:57)
[2025-08-31] MEDS: METOCLOPRAMIDE INJ 5 MG/ML VIAL 2 ML 10 MG IVP ×2 (09:57→18:08)
--- NOTE | 2025-08-31 10:55 | XR_ITS ---
EXAMINATION: AP chest single view TECHNIQUE: AP portable semiupright chest single view Date and time: August 31, 2025, 11:25 a.m., comparison August 29, 2025 INDICATIONS: Shortness of breath dyspnea today. FINDINGS: Moderate CHF Moderate enlargement cardiac contour Prominent vascular congestion including central vascular engorgement, perihilar basilar edema with large right pleural effusion Consider superimposed pneumonia at the lung bases IMPRESSION: Moderate CHF Consider superimposed pneumonia at the lung bases
--- NOTE | 2025-08-31 12:27 | ESPR_ITS ---
<Statement entered by Mark Torrez MD - 08/31/25 14:12> No acute overnight events. Seen and examined at bedside and patient endorses shortness of breath but no chest pain. He is on 6 L nasal cannula saturating 95% and decreased to high 80s when rolling over for auscultation. Leukocytosis slightly decreased, hemoglobin stable. CHEM panel largely unremarkable other than slightly increasing alk phos. Repeat CXR this morning shows moderate CHF with a possible superimposed pneumonia at the lung bases with new, large right pleural effusion. Will increase dosage of bumex and continue to monitor. Patient follows with Dr. Marquez outpatient and consult placed given history of heart failure and atrial fibrillation. ----- Note reviewed and agree with care plan as documented. Please refer to the note below for further details. Plan discussed with attending physician Dr. Will Torrez MD PGY-2 Internal Medicine Documentation for date of: 08/31/25 Subjective Subjective Interval history: Patient overnight desaturated to 80s on nasal cannula with minimal exertion. This morning patient found to have some crackles and states he is getting short of breath with minimal movement. Ordered a CXR that showed moderate chf and superimposed pna at lung bases. Patient was started on bumex 1 mg IV BID. Cardiology was consulted, will follow up. Found to be positive for cocci -> started on fluconazole. Upgraded to Tele. Exam Vital Signs Temp Pulse Resp BP Pulse Ox O2 Del Method O2 Flow Rate 98.0 F 109 H 22 H 106/72 95 Nasal Cannula 6 08/31/25 11:59 08/31/25 12:00 08/31/25 11:59 08/31/25 11:59 08/31/25 11:59 08/31/25 11:59 08/31/25 07:30 Narrative Exam General: A&Ox3; on 6 L NC; mild resp distress Skin: Warm, dry, intact. No rash or ecchymoses. Head: Normocephalic, atraumatic. Eye: Normal conjunctiva, PERRL. Throat: Oral mucosa moist. No obvious lesions in oropharynx. Cardiovascular: Tachycardic, irregular rhythm, no murmur, +S1/S2. Respiratory: Bilateral crackles; tachypneic Gastrointestinal: Soft, nontender, non-distended. No guarding or rebound tenderness. Extremities: No edema, no cyanosis, no clubbing. Neuro: No focal deficits observed. Conversant, moving all extremities. No overt cerebellar signs/incoordination. Psychiatric: Cooperative, appropriate affect Objective Labs 08/31/25 05:15 08/31/25 05:15 Labs: Laboratory Results - last 24 hr 08/31/25 05:15 WBC 14.1 H RBC 3.04 L Hgb 9.3 L Hct 29.4 L MCV 97 MCH 30.6 MCHC 31.6 RDW Std Deviation 51.6 H Plt Count 330 Neut % (Auto) 81 H Lymph % (Auto) 9 L [place] % (Auto) 8 Eos % (Auto) 1 Baso % (Auto) 0 Neut # (Auto) 11.5 H Lymph # (Auto) 1.2 [place] # (Auto) 1.1 H Eos # (Auto) 0.1 Baso # (Auto) 0.0 Immature Gran # (Auto) 0.19 H Absolute Nucleated RBC 0.00 Immature Gran % 1 H Nucleated RBC % 0 Sodium 140 Potassium 4.2 Chloride 105 Carbon Dioxide 25.2 Anion Gap 10 BUN 21 Creatinine 1.0 Estim Creat Clear Calc 94.2 eGFR > 60 BUN/Creatinine Ratio 21 H Glucose 117 H Calculated Osmolality 283 Calcium 8.4 Corrected Calcium 9.0 Magnesium 2.0 Total Bilirubin 0.7 AST 20 ALT 15 Alkaline Phosphatase 176 H Total Protein 6.2 Albumin 3.2 L Globulin 3.0 Albumin/Globulin Ratio 1.1 L Quality Measures Quality Measures VTE prophylaxis Advance care planning discussed with:: patient Assessment & Plan Assessment Current Active Medications: Generic Name Dose Route Start Last Admin Trade Name Freq PRN Reason Stop Dose Admin Acetaminophen 650 mg 08/30/25 11:56 08/30/25 12:21 Acetaminophen 325 Mg Tablet PO 09/29/25 11:55 650 mg Q6HR PRN Administration Fever > 100.4 Allopurinol 300 mg 08/30/25 09:00 08/31/25 09:48 Allopurinol 100 Mg Tablet PO 09/29/25 08:59 300 mg QDAY DARLENE Administration Apixaban 5 mg 08/30/25 09:00 08/31/25 09:48 Apixaban 2.5 Mg Tablet PO 09/29/25 08:59 5 mg BID DARLENE Administration Bumetanide 1 mg 08/31/25 09:00 08/31/25 09:57 Bumetanide 0.5 Mg Tablet PO 09/30/25 08:59 1 mg QDAY DARLENE Administration Diltiazem HCl 240 mg 08/30/25 09:00 08/31/25 09:57 Diltiazem Cd 120 Mg Capcr PO 09/29/25 08:59 240 mg QDAY DARLENE Administration Doxycycline Hyclate 100 mg 08/30/25 21:00 08/31/25 09:48 Doxycycline 100 Mg Tablet PO 09/06/25 20:59 100 mg BID DARLENE Administration Piperacillin/Tazobactam/Dextrose 3.375 gm in 50 mls @ 12.5 mls/hr 08/30/25 22:00 08/31/25 05:44 Zosyn IV 09/06/25 21:59 12.5 mls/hr Q8HR DARLENE Administration Protocol Ipratropium [place] 0.5 mg 08/31/25 10:17 Ipratropium Rt 0.5 Mg/ 2.5 Ml Nebu INH 09/30/25 10:16 Q6HR PRN SHORTNESS OF BREATH Levalbuterol HCl 1.25 mg 08/31/25 10:17 Levalbuterol Rt 1.25 Mg/0.5 Ml Nebu INH 09/30/25 10:16 Q8HR PRN WHEEZING Metoclopramide HCl 10 mg 08/30/25 18:17 08/31/25 09:57 Metoclopramide Inj 5 Mg/Ml Vial 2 Ml IVP 09/02/25 18:16 10 mg Q6HR PRN Administration Vomiting Protocol Metoprolol Tartrate 100 mg 08/30/25 09:00 08/31/25 09:49 Metoprolol Tartrate 25 Mg Tablet PO 09/29/25 08:59 100 mg BID DARLENE Administration Ondansetron HCl 4 mg 08/29/25 21:37 08/30/25 12:22 Ondansetron Inj 2 Mg/Ml Inj 2 Ml IVP 09/28/25 21:36 4 mg Q6H PRN Administration NAUSEA OR VOMITING Protocol Sennosides 1 tab 08/30/25 15:20 Senna/Docusate Sod 1 Tab Tablet PO 09/29/25 15:19 QDAY PRN CONSTIPATION Protocol Sodium Chloride 3 ml 08/31/25 07:12 Sodium Chloride Rt [place] 0.9% 3 Ml Nebu INH 09/30/25 07:11 PRN PRN SOLN Protocol Plan 65-year-old male with a past medical history of A-fib, status post pacemaker placement, hypertension, HFpEF, arthritis, and Castleman syndrome who presented to the ED in the evening of 08/29/2025 with a chief complaint of shortness of breath. Patient was found to have a right basilar pneumonia on chest x-ray. It was reported that the patient desaturated to the mid 80%'s when he was lying down in the ED bed.Patient was admitted for acute hypoxic respiratory failure secondary to community-acquired pneumonia. #Acute hypoxic respiratory failure secondary to #Right base pneumonia, CAP Curb 65 score of 2: Respiratory rate over 30 and age over 65. Moderate risk group, 6.8% 30 mortality Patient presented with 1 week history of shortness of breath and a 1 day history of cough productive of clear sputum. Patient is afebrile. It was reported that the patient desaturated to the mid 80%'s when he was lying down in the ED bed, upon admission he was saturating at 96% on 4 L nasal cannula. WBC of 19.7, has been elevated on previous visits, may be secondary to home methylprednisolone use for arthritis, which the patient denies taking any more, this makes defending his chronically elevated WBC count difficult to defend, though it does make it less likely that it is directly associated with his acute hypoxic respiratory failure secondary to suspected community-acquired pneumonia -Chest x-ray showed right basilar pneumonia, central vascular congestion and prominence, mild heart failure - Patient does not use home oxygen, satting at 96% on 3 L on exam - 08/30 STOPPED Ceftriaxone and Azithromycin - MRSA negative - CXR 08/31 showed moderate CHF, Large right pleural effusion - Cocci Positive Plan: * Zosyn 3.375gm q8h (08/30- * Doxycycline 100mg BID (08/30- * Started Fluconazole 400 mg po qday (08/31- * Started Bumex 2 mg IV BID for worsening resp status (crackles) * Blood cultures ordered, pending * Sputum cultures ordered, pending * O2 nasal cannula support as needed for saturation over 96% #A-fib with RVR #Sinus Sick Syndrome S/p pacemaker placement EKG showed A-fib RVR with a rate of 105, may be contributing to the patient's soft blood pressure Pt has pacemaker placed in 2006 which has been replaced [address] Marquez CHADsVAS score 4 -?6.7% risk of stroke/TIA/systemic embolism HAS BLED score 2 Plan: * Metoprolol tartrate 100 mg every 12 hours * Eliquis 5 mg p.o. twice daily * Diltiazem 240 mg p.o. daily * Cardiology consulted * - Keep K > 4 and Mg > 2 #HFpEF EF 55-60% Echo on 03/17/2025 showed EF 55-60%. Diastolic function difficult to evaluate due to A-fib. Severe biatrial dilation. Patient had no signs of fluid overload on exam: Negative for crackles or peripheral edema. Patient takes bumetanide 1 mg daily at home Plan: * Bumex 2mg IV BID * Strict ins and outs * Fluid restriction 1800 mL #Castleman syndrome Patient mentions that he has not had his rituximab and methotrexate infusions for the past 3 months due to a gluteal abscess. He was recently cleared by wound care to resume his infusions #Hypertension Presented with hypertension stage II 143/88 Plan - holding home lisinopril for now due to soft pressures #Acute normocytic anemia Patient presented with a hemoglobin of 10.8, decreased from previous hospital visits. Low suspicion of bleeding at this time. May be associated with anemia of chronic disease due to Castleman syndrome Plan: * Daily CBCS * Transfuse if below 7 Hospital management: Lines: peripheral IV Diet: cardiac Bowel: Senna/docusate DVT prophylaxis: Eliquis 5mg Disposition: Med/tele,, AHRF 2/2PNA escalate from ceftriaxone/azithromycin to Zosyn and doxycycline. CODE STATUS: Full code Patient plan of care was discussed with the attending physician, Dr. Solis & senior resident Dr. Javon Hansen MD PGY-1 Attending Provider Attestation/Addendum I, Marcy Solis, DO, attest that I was physically present for the varner portions of the service and evaluated the patient with the resident and I reviewed and discussed the case with the resident and agree with the resident's findings and plans of care as documented above Patient seen and evaluated this AM. He states that he is very short of breath, unable to lay flat. He reported improvement with breathing treatment. Suspect fluid overload as patient has history of HFpEF. Low suspicion for PE as patient takes eliquis at home. Will give IV diuresis and monitor fluid status. No peripheral edema noted. Repeat chest XR shows moderate vascular congestion.
[2025-08-31] MEDS: BUMETANIDE INJ 0.25 MG/ML VIAL 4 ML 1 MG IVP (12:29)
[2025-08-31 14:29] LABS: Cocci Serology, IgM Positive (Negative)
[2025-08-31 14:30] LABS: Cocid Sro, CF/ID (UCD) NO CHG* See Sep Rpt
[2025-08-31] MEDS: FLUCONAZOLE 100 MG TABLET 400 MG PO (16:27)
--- NOTE | 2025-08-31 17:00 | PC.SS ---
Rounding note: On 6L oxygen, on IV abx for pneumonia. Needs SS initial assessment.
[2025-08-31] MEDS: BUMETANIDE INJ 0.25 MG/ML VIAL 4 ML 2 MG IVP (20:26)
[2025-09-01] VITALS (13 sets, daily range): BP systolic 83–140; BP diastolic 48–89; PULSE 74–128; RESP 14–29; TEMP 36.2–37; O2SAT 93–99; BMI 32.8
[2025-09-01] MEDS: PIPER/TAZO 3.375 GM PREMIX 3.375 GM/50 ML BAG IV ×3 (06:16→21:16)
[2025-09-01] MEDS: BUMETANIDE INJ 0.25 MG/ML VIAL 4 ML 2 MG IVP ×2 (06:16→17:22)
[2025-09-01 06:19] LABS: Basophils # (Auto) 0.0 Thou/mm3 (0.0-0.2); Basophils % (Auto) 0 % (0-2.5); Eosinophils # (Auto) 0.1 Thou/mm3 (0.0-0.5); Eosinophils % (Auto) 1 % (0-10); Hematocrit 30.1 % (41.0-53.0); Hemoglobin 9.5 g/dL (13.5-16.0); Immature Granulocytes Auto 0.14 Thou/mm3 (0.00-0.00); Lymphocytes # (Auto) 1.3 Thou/mm3 (1.0-4.8); Lymphocytes % (Auto) 8 % (10-50); Mean Corpuscular HGB Conc 31.6 g/dl (31.0-37.0); Mean Corpuscular Hemoglobin 30.2 pg (25.0-35.0); Mean Corpuscular Volume 96 fL (80-100); Monocytes # (Auto) 1.1 Thou/mm3 (0.0-0.8); Monocytes % (Auto) 7 % (0-12); Neutrophils # (Auto) 13.3 Thou/mm3 (1.8-7.7); Neutrophils % (Auto) 83 % (37-80); Nucleated Red Blood Cell # 0.00 Thou/mm3 (0.00-0.00); Nucleated Red Blood Cell % 0 /100 WBC (0); Platelet Count 347 Thou/mm3 (140-440); RDW Standard Deviation 50.6 fL (35.1-43.9); Red Blood Count 3.15 Miln/mm3 (4.50-5.90); White Blood Count 16.0 Thou/mm3 (3.8-10.6)
[2025-09-01 07:01] LABS: Alanine Aminotransferase 15 U/L (10-49); Albumin, Serum 3.5 gm/dL (3.4-4.8); Albumin/Globulin Ratio 1.1 (1.2-2.2); Alkaline Phosphatase 187 U/L (46-116); Anion Gap 13 (7-16); Aspartate Amino Transferase 14 U/L (0-34); BUN/Creatinine Ratio 18 Ratio (12-20); Bilirubin,Total 0.7 mg/dL (0.3-1.2); Blood Urea Nitrogen 20 mg/dL (9-23); Calcium 8.8 mg/dL (8.3-10.6); Calcium (Corrected) 9.2 mg/dL (8.5-10.1); Carbon Dioxide 25.8 mMol/L (20.0-31.0); Chloride 100 mMol/L (98-107); Creatinine (Component) 1.1 mg/dL (0.6-1.3); Estimated Creatinine Clearance 85.7 mL/min (>60); Globulin 3.1 gm/dL (2.3-3.5); Glucose 111 mg/dL (74-106); Magnesium 1.7 mg/dL (1.6-2.6); Osmolality,Calculated 281 (275-295); Phosphorous 3.8 mg/dL (2.4-5.1); Potassium 4.0 mMol/L (3.4-5.1); Sodium 139 mMol/L (136-145); Total Protein 6.6 gm/dL (5.7-8.2); eGFR > 60 See Note
--- NOTE | 2025-09-01 07:54 | ESCONSULT_ITS ---
RE: SALVADOR GUTIERREZ : 1960 DATE OF CONSULTATION: 08/31/2025 CONSULTING PHYSICIAN: Hospitalist and Sadiq Hansen MD, PGY-1. REASON FOR CONSULTATION: Evaluation of shortness of breath, pleural effusion, parapneumonic effusion, possible volume overload, HFrEF. CHIEF COMPLAINT: Shortness of breath. HISTORY OF PRESENT ILLNESS: The patient is very well known to me, is a 65-year-old male with history of long standing hypertension, pacemaker implantation, atrial fibrillation, status post ablation of AV node. Has been on beta-blockers, metoprolol, diltiazem for rate control and Eliquis for anticoagulation. Also diagnosed to have Castleman syndrome, lymphoproliferative disorder followed by [facility] on MaP therapy. Not had this since patient had had recent surgery, not had any treatment for last 3 months. Patient was supposed to be on rituximab and methotrexate infusion but not had for last couple of months. Has had recurrent hospitalization for multiple issues including lymphadenopathy, congestive heart failure, pneumonia. Patient has a history of HFrEF with ejection fraction usually well-preserved 55-60%. 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 Initial chest x-ray showed mild infiltrate, subsequent 2 days later chest x-ray showed mild pleural effusion on the right side and pneumonic infiltrate. The patient started on antibiotic therapy as well as starting on fluconazole per resident team. He is not complaining of any chest pain, mostly a shortness of breath, severe hypoxemia. MEDICATIONS LIST: He is on: 1. Allopurinol 300 daily. 2. Bumetanide normally takes 1 mg daily. 3. Digoxin 125 mcg daily for rate control. 4. Diltiazem 240 mg daily. 5. Eliquis 5 mg twice daily. 6. Methotrexate 15 mg weekly. 7. Methylprednisolone 4 mg daily. 8. Metoprolol 100 mg every 12 hours. 9. Lisinopril 20 mg daily. 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 SOCIAL HISTORY: Patient has supportive family, does not currently smoke, drink alcoholic beverages. FAMILY HISTORY: Noncontributory. PHYSICAL EXAMINATION: GENERAL: Well-nourished male, alert, awake, and in no acute distress. VITAL SIGNS: His blood pressure 113/70, pulse rate is 80-100, respirations 20. Patient still on nasal cannula 4 liters per minute, saturating reasonably well. HEAD: Atraumatic and normocephalic. NECK: Supple, mild JVD is present. CHEST: Symmetric. LUNGS: Decreased breath sounds on the right side, dullness as well as crackles on the right side. HEART: S1, S2 irregular, atrial fibrillation. ABDOMEN: Slightly distended and soft. EXTREMITIES: Mild edema on both feet. GENITOURINARY AND RECTAL: Not performed. NEUROLOGIC: Exam unremarkable. EKG showed atrial fibrillation, nonspecific changes. The laboratory showed a white count 14,000; hemoglobin 9.3. Renal panel normal. IMPRESSION: 1. 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 2. Small right pleural effusion, parapneumonic effusion. 3. Mild pulmonary congestion with heart failure with reduced ejection fraction. 4. Hypertensive cardiovascular disease. 5. Atrial fibrillation, chronic. 6. Status post permanent pacemaker implantation. 7. Castleman disease, lymphoproliferative disorder undergoing extensive treatment at [facility] including immunosuppressive drugs therapy. RECOMMENDATION AND DISCUSSION: Patient will be recommended to continue antibiotic therapy and fluconazole. Positive test for IGM_ antibody for coccidioidomycosis. Recommend continuing fluconazole and as for the congestive heart failure, patient has HFrEF sensitive to volume, hence will give diuretic therapy 2 mg Bumex and monitor renal function closely. If the patient does not improve, we would like to get an ultrasound of the right chest, see if there is enough fluid to be drained with thoracentesis. We would like to thank you for referring this patient for cardiovascular evaluation. We will be glad to follow the patient with you. DT: 22:45:33 TT: 23:30:00 Ref: [id number] - TID: [id number] MTDD
[2025-09-01] MEDS: Magnesium Sulfate 4 GM Ivpb 4 GM/50 ML BAG IV (08:58)
[2025-09-01] MEDS: DILTIAZEM CD 120 MG CAPCR 240 MG PO (08:58)
[2025-09-01] MEDS: DOXYCYCLINE 100 MG TABLET PO ×2 (08:59→21:17)
[2025-09-01] MEDS: METOPROLOL TARTRATE 25 MG TABLET 100 MG PO ×2 (08:59→21:17)
[2025-09-01] MEDS: FLUCONAZOLE 100 MG TABLET 400 MG PO (09:00)
[2025-09-01] MEDS: APIXABAN 2.5 MG TABLET 5 MG PO (09:00)
--- NOTE | 2025-09-01 09:55 | ESPR_ITS ---
<Statement entered by Mark Torrez MD - 09/01/25 16:07> No acute overnight events. Seen and examined at bedside and appears to be improved compared to yesterday. Saturating 93% on 4 L nasal cannula. Cardiology evaluated patient and agreed with IV diuretics and recommended ultrasound for evaluation of possible thoracentesis. Order placed for ultrasound-guided thoracentesis and Eliquis held for procedure. Otherwise, will continue fluconazole for positive cocci IgM, Zosyn and doxycycline for community-acquired pneumonia coverage. Labs show slight increase in leukocytosis from 14 to 16, hemoglobin stable, CHEM panel largely unremarkable. ----- Note reviewed and agree with care plan as documented. Please refer to the note below for further details. Plan discussed with attending physician Dr. Will Torrez MD PGY-2 Internal Medicine Documentation for date of: 09/01/25 Subjective Subjective Interval history: Overnight patient was tachycardic and tachypneic but afebrile. Today patient was seen and examined at bedside. Reports SOB improvement desaturation 95% on 5 L nasal cannula, otherwise vitals unremarkable. Also endorsed increase frequency and polyuria since bumex dosage increase. CHEM panel significant for leukocytosis with left shift however patient is afebrile, denies chills, chest palpitation, lightheadedness. Magnesium repleted. Ultrasound thoracentesis ordered per cardiology recommendation to inquire for pleural effusion that may be worsening patient breathing. Exam Vital Signs Temp Pulse Resp BP Pulse Ox O2 Del Method O2 Flow Rate 97.8 F 74 14 130/89 H 96 Nasal Cannula 6 09/01/25 08:00 09/01/25 08:59 09/01/25 08:00 09/01/25 08:59 09/01/25 08:00 09/01/25 08:00 09/01/25 08:00 Narrative Exam General: Alert, no acute distress.Conversational and non-toxic appearing. Skin: Warm, dry, intact. No rash or ecchymoses. Head: Normocephalic, atraumatic. Eye: Normal conjunctiva, PERRL. Throat: Oral mucosa moist. No obvious lesions in oropharynx. Cardiovascular: Tachycardic, regular rate and rhythm, no murmur, +S1/S2. Respiratory: Lungs are clear to auscultation,low BS, mild crackles, no wheezing. Gastrointestinal: Soft, nontender, non-distended. No guarding or rebound tenderness. Extremities: No edema, no cyanosis, no clubbing. Neuro: Alert and oriented x3.No focal deficits observed. Conversant, moving all extremities. No overt cerebellar signs/incoordination. Psychiatric: Cooperative, appropriate affect Objective Labs 09/01/25 04:36 09/01/25 04:36 Labs: Laboratory Results - last 24 hr 08/30/25 09/01/25 04:54 04:36 WBC 16.0 H RBC 3.15 L Hgb 9.5 L Hct 30.1 L MCV 96 MCH 30.2 MCHC 31.6 RDW Std Deviation 50.6 H Plt Count 347 Neut % (Auto) 83 H Lymph % (Auto) 8 L [place] % (Auto) 7 Eos % (Auto) 1 Baso % (Auto) 0 Neut # (Auto) 13.3 H Lymph # (Auto) 1.3 [place] # (Auto) 1.1 H Eos # (Auto) 0.1 Baso # (Auto) 0.0 Immature Gran # (Auto) 0.14 H Absolute Nucleated RBC 0.00 Immature Gran % 1 H Nucleated RBC % 0 Sodium 139 Potassium 4.0 Chloride 100 Carbon Dioxide 25.8 Anion Gap 13 BUN 20 Creatinine 1.1 Estim Creat Clear Calc 85.7 eGFR > 60 BUN/Creatinine Ratio 18 Glucose 111 H Calculated Osmolality 281 Calcium 8.8 Corrected Calcium 9.2 Phosphorus 3.8 Magnesium 1.7 Total Bilirubin 0.7 AST 14 ALT 15 Alkaline Phosphatase 187 H Total Protein 6.6 Albumin 3.5 Globulin 3.1 Albumin/Globulin Ratio 1.1 L Coccidioides IgM Ab Positive A Quality Measures Quality Measures VTE prophylaxis Advance care planning discussed with:: patient and other Assessment & Plan Assessment Current Active Medications: Generic Name Dose Route Start Last Admin Trade Name Freq PRN Reason Stop Dose Admin Acetaminophen 650 mg 08/30/25 11:56 08/30/25 12:21 Acetaminophen 325 Mg Tablet PO 09/29/25 11:55 650 mg Q6HR PRN Administration Fever > 100.4 Allopurinol 300 mg 08/30/25 09:00 09/01/25 08:59 Allopurinol 100 Mg Tablet PO 09/29/25 08:59 300 mg QDAY DARLENE Administration Apixaban 5 mg 08/30/25 09:00 09/01/25 09:00 Apixaban 2.5 Mg Tablet PO 09/29/25 08:59 5 mg BID DARLENE Administration Bumetanide 2 mg 09/01/25 06:00 09/01/25 06:16 Bumetanide Inj 0.25 Mg/Ml Vial 4 Ml IVP 09/30/25 20:59 2 mg BIDD DARLENE Administration Diltiazem HCl 240 mg 08/30/25 09:00 09/01/25 08:58 Diltiazem Cd 120 Mg Capcr PO 09/29/25 08:59 240 mg QDAY DARLENE Administration Doxycycline Hyclate 100 mg 08/30/25 21:00 09/01/25 08:59 Doxycycline 100 Mg Tablet PO 09/06/25 20:59 100 mg BID DARLENE Administration Fluconazole 400 mg 08/31/25 15:45 09/01/25 09:00 Fluconazole 100 Mg Tablet PO 09/07/25 15:44 400 mg QDAY DARLENE Administration Piperacillin/Tazobactam/Dextrose 3.375 gm in 50 mls @ 12.5 mls/hr 08/30/25 22:00 09/01/25 06:16 Zosyn IV 09/06/25 21:59 12.5 mls/hr Q8HR DARLENE Administration Protocol Magnesium Sulfate 4 gm in 50 mls @ 12.5 mls/hr 09/01/25 08:22 09/01/25 08:58 Magnesium Sulfate Ivpb IV 09/01/25 12:21 12.5 mls/hr X1 ONE Administration Ipratropium [place] 0.5 mg 08/31/25 10:17 08/31/25 14:47 Ipratropium Rt 0.5 Mg/ 2.5 Ml Nebu INH 09/30/25 10:16 0.5 mg Q6HR PRN Administration SHORTNESS OF BREATH Levalbuterol HCl 1.25 mg 08/31/25 10:17 08/31/25 14:47 Levalbuterol Rt 1.25 Mg/0.5 Ml Nebu INH 09/30/25 10:16 1.25 mg Q8HR PRN Administration WHEEZING Metoclopramide HCl 10 mg 08/30/25 18:17 08/31/25 18:08 Metoclopramide Inj 5 Mg/Ml Vial 2 Ml IVP 09/02/25 18:16 10 mg Q6HR PRN Administration Vomiting Protocol Metoprolol Tartrate 100 mg 08/30/25 09:00 09/01/25 08:59 Metoprolol Tartrate 25 Mg Tablet PO 09/29/25 08:59 100 mg BID DARLENE Administration Ondansetron HCl 4 mg 08/29/25 21:37 08/30/25 12:22 Ondansetron Inj 2 Mg/Ml Inj 2 Ml IVP 09/28/25 21:36 4 mg Q6H PRN Administration NAUSEA OR VOMITING Protocol Sennosides 1 tab 08/30/25 15:20 Senna/Docusate Sod 1 Tab Tablet PO 09/29/25 15:19 QDAY PRN CONSTIPATION Protocol Sodium Chloride 3 ml 08/31/25 07:12 Sodium Chloride Rt Dominique 0.9% 3 Ml Nebu INH 09/30/25 07:11 PRN PRN SOLN Protocol Plan 65-year-old male with a past medical history of A-fib, status post pacemaker placement, hypertension, HFpEF, arthritis, and Castleman syndrome who presented to the ED in the evening of 08/29/2025 with a chief complaint of shortness of breath. Patient was found to have a right basilar pneumonia on chest x-ray. It was reported that the patient desaturated to the mid 80%'s when he was lying down in the ED bed.Patient was admitted for acute hypoxic respiratory failure secondary to community-acquired pneumonia. #Acute hypoxic respiratory failure secondary to # Superimposed bacterial pneumonia, right base # Large right pleural effusion # Valley coccidiomycosis Curb 65 score of 2: Respiratory rate over 30 and age over 65. Moderate risk group, 6.8% 30 mortality Patient presented with 1 week history of shortness of breath and a 1 day history of cough productive of clear sputum. Patient is afebrile. It was reported that the patient desaturated to the mid 80%'s when he was lying down in the ED bed, upon admission he was saturating at 96% on 4 L nasal cannula. WBC of 19.7, has been elevated on previous visits, may be secondary to home methylprednisolone use for arthritis, which the patient denies taking any more, this makes defending his chronically elevated WBC count difficult to defend, though it does make it less likely that it is directly associated with his acute hypoxic respiratory failure secondary to suspected community-acquired pneumonia -08/29/25:Chest x-ray showed right basilar pneumonia, central vascular congestion and prominence, mild heart failure - Patient does not use home oxygen, satting at 96% on 3 L on exam - 08/30 STOPPED Ceftriaxone and Azithromycin - MRSA negative - CXR 08/31 showed moderate CHF, Large right pleural effusion - 08/30 Cocci Positive Plan: * Zosyn 3.375gm q8h (08/30- * Doxycycline 100mg BID (08/30- * Continue Fluconazole 400 mg po qday (08/31- * Continue Bumex 2 mg IV BID for worsening resp status (crackles) * Continue breathing treatment * Blood cultures no growth after 48 hrs in 2 bottle * Sputum cultures ordered, mixed oral mignon * O2 nasal cannula support as needed for saturation over 96% #A-fib with RVR, chronic #Sinus Sick Syndrome S/p pacemaker placement EKG showed A-fib RVR with a rate of 105, may be contributing to the patient's soft blood pressure Pt has pacemaker placed in 2006 which has been replaced [address] Marquez CHADsVAS score 4 -?6.7% risk of stroke/TIA/systemic embolism HAS BLED score 2 Plan: * Metoprolol tartrate 100 mg every 12 hours * Eliquis 5 mg p.o. twice daily * Diltiazem 240 mg p.o. daily * Cardiology consulted-monitor renal function, US thoracentesis * Keep K > 4 and Mg > 2 #HFpEF EF 55-60% #Mild Congestive heart failure Echo on 03/17/2025 showed EF 55-60%. Diastolic function difficult to evaluate due to A-fib. Severe biatrial dilation. Patient had no signs of fluid overload on exam: Negative for crackles or peripheral edema. Patient takes bumetanide 1 mg daily at home -08/31/25 Chest x-ray showed moderate CHF, superimposed pneumonia at the lung bases Plan: * Bumex 2mg IV BID * Strict ins and outs * Fluid restriction 1800 mL #Castleman syndrome Patient mentions that he has not had his rituximab and methotrexate infusions for the past 3 months due to a gluteal abscess. He was recently cleared by wound care to resume his infusions #Hypertension Presented with hypertension stage II 143/88 Plan - holding home lisinopril for now due to soft pressures #Acute normocytic anemia Patient presented with a hemoglobin of 10.8, decreased from previous hospital visits. Low suspicion of bleeding at this time. May be associated with anemia of chronic disease due to Castleman syndrome Plan: * Daily CBCS * Transfuse if below 7 Hospital management: Lines: peripheral IV Diet: cardiac Bowel: Senna/docusate DVT prophylaxis: Eliquis 5mg Disposition: Med/tele,, AHRF 2/2PNA escalate from ceftriaxone/azithromycin to Zosyn and doxycycline. CODE STATUS: Full code Patient plan of care was discussed with the attending physician, Dr. Solis & senior resident Dr. Javon Gomez MD PGY-1 Attending Provider Attestation/Addendum I, Marcy Solis, DO, attest that I was physically present for the varner portions of the service and evaluated the patient with the resident and I reviewed and discussed the case with the resident and agree with the resident's findings and plans of care as documented above Patient seen and evaluated this AM. He is sitting up in bed and is much more comfortably. He is no respiratory distress and remains on 4L/nC. He continues to have mild bibasilar crackles. Will continue with bumex 2mg IV BID. Will obtain US thorascentesis for right pleural effusion. Explained to patient that he tested positive for coccidiomycosis and started on flluconazole. Continue with empiric antibiotics for atypical/MRSA/gram negative/ pseudomonal coverage as patient is immunosuppressed.
--- NOTE | 2025-09-01 14:55 | PC.SS ---
Rounding: IV ABX, valley fever
--- NOTE | 2025-09-01 19:10 | ESPR_ITS ---
<Statement entered by Kervin Marquez MD - 09/02/25 12:27> I personally evaluated examined the patient on MedSurg floor today along with resident physician Dr. Cline patient has multiple medical problems including HFpEF A-fib chronic pacemaker implantation admitted to hospital shortness of breath fluid overload small pleural effusion and pneumonia possibly secondary to valley fever coccidiomycosis patient's given IV Bumex improved clinically 2 mg twice daily does not like taking evening dose but recommend to take 1 dose tonight once improved significantly may be changing to next day once a day. Agree with treatment plan recommendation as documented by PGY 2 Dr. Sher Documentation for date of: 09/01/25 Subjective Subjective Interval history: Patient examined at bedside. Well has no major complaints. Patient has urine output -300 cc past 24 hours. Vitals are stable saturating 93% on 4 L NC. Will continue with 2 mg Bumex twice daily. Eliquis 5 mg twice daily, metoprolol 100 twice daily. Creatinine is 1.1. On physical exam there are diminished lung sounds with dullness to percussion. Patient may undergo thoracentesis for pleural effusion. Exam Vital Signs Temp Pulse Resp BP Pulse Ox O2 Del Method O2 Flow Rate 97.6 F 101 H 24 H 136/87 H 94 L Nasal Cannula 4 09/01/25 16:00 09/01/25 17:22 09/01/25 16:00 09/01/25 17:22 09/01/25 16:00 09/01/25 16:00 09/01/25 16:00 Narrative Exam General: Alert and oriented x3. No acute distress, cooperative HEENT: NCAT, No JVD noted. Mucosa moist. Pupils are equal and reactive to light bilaterally Cardiovascular: Normal S1 and S2. Regular rate and rhythm. Respiratory: decreased breath sounds Abdomen: Soft, nontender, not distended, normal bowel sounds. Skin: Warm to touch, dry, no rashes noted Musculoskeletal: No gross injuries. Able to move all 4 extremities. No pitting edema Neuro: Alert and oriented x3. No focal neuro deficits. Psych: Normal affect and mood Objective Labs 09/01/25 04:36 09/01/25 04:36 Labs: Laboratory Results - last 24 hr 09/01/25 04:36 WBC 16.0 H RBC 3.15 L Hgb 9.5 L Hct 30.1 L MCV 96 MCH 30.2 MCHC 31.6 RDW Std Deviation 50.6 H Plt Count 347 Neut % (Auto) 83 H Lymph % (Auto) 8 L [place] % (Auto) 7 Eos % (Auto) 1 Baso % (Auto) 0 Neut # (Auto) 13.3 H Lymph # (Auto) 1.3 [place] # (Auto) 1.1 H Eos # (Auto) 0.1 Baso # (Auto) 0.0 Immature Gran # (Auto) 0.14 H Absolute Nucleated RBC 0.00 Immature Gran % 1 H Nucleated RBC % 0 Sodium 139 Potassium 4.0 Chloride 100 Carbon Dioxide 25.8 Anion Gap 13 BUN 20 Creatinine 1.1 Estim Creat Clear Calc 85.7 eGFR > 60 BUN/Creatinine Ratio 18 Glucose 111 H Calculated Osmolality 281 Calcium 8.8 Corrected Calcium 9.2 Phosphorus 3.8 Magnesium 1.7 Total Bilirubin 0.7 AST 14 ALT 15 Alkaline Phosphatase 187 H Total Protein 6.6 Albumin 3.5 Globulin 3.1 Albumin/Globulin Ratio 1.1 L Quality Measures Quality Measures VTE prophylaxis Advance care planning discussed with:: patient Assessment & Plan Assessment Current Active Medications: Generic Name Dose Route Start Last Admin Trade Name Freq PRN Reason Stop Dose Admin Acetaminophen 650 mg 08/30/25 11:56 08/30/25 12:21 Acetaminophen 325 Mg Tablet PO 09/29/25 11:55 650 mg Q6HR PRN Administration Fever > 100.4 Allopurinol 300 mg 08/30/25 09:00 09/01/25 08:59 Allopurinol 100 Mg Tablet PO 09/29/25 08:59 300 mg QDAY DARLENE Administration Apixaban 5 mg 08/30/25 09:00 09/01/25 09:00 Apixaban 2.5 Mg Tablet PO 09/29/25 08:59 5 mg On Hold: 09/01/25 09:55 BID DARLENE Administration Bumetanide 2 mg 09/01/25 06:00 09/01/25 17:22 Bumetanide Inj 0.25 Mg/Ml Vial 4 Ml IVP 09/30/25 20:59 2 mg BIDD DARLENE Administration Diltiazem HCl 240 mg 08/30/25 09:00 09/01/25 08:58 Diltiazem Cd 120 Mg Capcr PO 09/29/25 08:59 240 mg QDAY DARLENE Administration Doxycycline Hyclate 100 mg 08/30/25 21:00 09/01/25 08:59 Doxycycline 100 Mg Tablet PO 09/06/25 20:59 100 mg BID DARLENE Administration Fluconazole 400 mg 08/31/25 15:45 09/01/25 09:00 Fluconazole 100 Mg Tablet PO 09/07/25 15:44 400 mg QDAY DARLENE Administration Piperacillin/Tazobactam/Dextrose 3.375 gm in 50 mls @ 12.5 mls/hr 08/30/25 22:00 09/01/25 14:08 Zosyn IV 09/06/25 21:59 12.5 mls/hr Q8HR DARLENE Administration Protocol Ipratropium [place] 0.5 mg 08/31/25 10:17 08/31/25 14:47 Ipratropium Rt 0.5 Mg/ 2.5 Ml Nebu INH 09/30/25 10:16 0.5 mg Q6HR PRN Administration SHORTNESS OF BREATH Levalbuterol HCl 1.25 mg 08/31/25 10:17 08/31/25 14:47 Levalbuterol Rt 1.25 Mg/0.5 Ml Nebu INH 09/30/25 10:16 1.25 mg Q8HR PRN Administration WHEEZING Metoclopramide HCl 10 mg 08/30/25 18:17 08/31/25 18:08 Metoclopramide Inj 5 Mg/Ml Vial 2 Ml IVP 09/02/25 18:16 10 mg Q6HR PRN Administration Vomiting Protocol Metoprolol Tartrate 100 mg 08/30/25 09:00 09/01/25 08:59 Metoprolol Tartrate 25 Mg Tablet PO 09/29/25 08:59 100 mg BID DARLENE Administration Ondansetron HCl 4 mg 08/29/25 21:37 08/30/25 12:22 Ondansetron Inj 2 Mg/Ml Inj 2 Ml IVP 09/28/25 21:36 4 mg Q6H PRN Administration NAUSEA OR VOMITING Protocol Sennosides 1 tab 08/30/25 15:20 Senna/Docusate Sod 1 Tab Tablet PO 09/29/25 15:19 QDAY PRN CONSTIPATION Protocol Sodium Chloride 3 ml 08/31/25 07:12 Sodium Chloride Rt Dominique 0.9% 3 Ml Nebu INH 01/06/26 07:11 PRN PRN SOLN Protocol Plan 65-year-old male with history of long standing hypertension, pacemaker implantation, atrial fibrillation, status post ablation of AV node. Has been on beta-blockers, metoprolol, diltiazem fo rate control and Eliquis for anticoagulation. Cardiology consulted for SOB, possible volume overload, HFrEF. 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 # Small right pleural effusion, parapneumonic effusion. # Mild pulmonary congestion with heart failure with reduced ejection fraction. # Hypertensive cardiovascular disease. # Atrial fibrillation, chronic. # Status post permanent pacemaker implantation. # Castleman disease, lymphoproliferative disorder undergoing extensive treatment at [facility] including immunosuppressive drugs therapy. Plan: Continue with Bumex 2mg BID. He is having good urine output. U/s of chest is pending. Patient may need to undergo thoracentesis for fluid removal. Oxygen requirements are mildly improving. He does not appear to be fluid overloaded on exam. Continue to monitor. Primary care team to manage above conditions and ongoing care needs. The patient's management plan was discussed with my attending physician Dr. Marquez. Naina Sher, PGY-2
[2025-09-02] VITALS (13 sets, daily range): BP systolic 90–130; BP diastolic 62–85; PULSE 81–123; RESP 18–25; TEMP 36.2–36.9; O2SAT 95–97
[2025-09-02] MEDS: BUMETANIDE INJ 0.25 MG/ML VIAL 4 ML 2 MG IVP ×2 (05:58→17:22)
[2025-09-02] MEDS: PIPER/TAZO 3.375 GM PREMIX 3.375 GM/50 ML BAG IV ×3 (05:58→21:48)
[2025-09-02 06:01] LABS: INR 1.3 (0.9-1.3); Partial Thromboplastin Time 34.3 Seconds (22.0-36.0); Prothrombin Time 13.1 Seconds (9.0-12.2)
[2025-09-02 06:13] LABS: Basophils # (Auto) 0.0 Thou/mm3 (0.0-0.2); Basophils % (Auto) 0 % (0-2.5); Eosinophils # (Auto) 0.1 Thou/mm3 (0.0-0.5); Eosinophils % (Auto) 1 % (0-10); Hematocrit 29.8 % (41.0-53.0); Hemoglobin 9.6 g/dL (13.5-16.0); Immature Granulocytes Auto 0.14 Thou/mm3 (0.00-0.00); Lymphocytes # (Auto) 1.1 Thou/mm3 (1.0-4.8); Lymphocytes % (Auto) 7 % (10-50); Mean Corpuscular HGB Conc 32.2 g/dl (31.0-37.0); Mean Corpuscular Hemoglobin 30.2 pg (25.0-35.0); Mean Corpuscular Volume 94 fL (80-100); Monocytes # (Auto) 1.0 Thou/mm3 (0.0-0.8); Monocytes % (Auto) 6 % (0-12); Neutrophils # (Auto) 13.5 Thou/mm3 (1.8-7.7); Neutrophils % (Auto) 86 % (37-80); Nucleated Red Blood Cell # 0.00 Thou/mm3 (0.00-0.00); Nucleated Red Blood Cell % 0 /100 WBC (0); Platelet Count 349 Thou/mm3 (140-440); RDW Standard Deviation 50.8 fL (35.1-43.9); Red Blood Count 3.18 Miln/mm3 (4.50-5.90); White Blood Count 15.8 Thou/mm3 (3.8-10.6)
[2025-09-02 06:41] LABS: Alanine Aminotransferase 17 U/L (10-49); Albumin, Serum 3.4 gm/dL (3.4-4.8); Albumin/Globulin Ratio 1.0 (1.2-2.2); Alkaline Phosphatase 175 U/L (46-116); Anion Gap 15 (7-16); Aspartate Amino Transferase 33 U/L (0-34); BUN/Creatinine Ratio 18 Ratio (12-20); Bilirubin,Total 0.7 mg/dL (0.3-1.2); Blood Urea Nitrogen 23 mg/dL (9-23); Calcium 8.7 mg/dL (8.3-10.6); Calcium (Corrected) 9.2 mg/dL (8.5-10.1); Carbon Dioxide 26.3 mMol/L (20.0-31.0); Chloride 97 mMol/L (98-107); Creatinine (Component) 1.3 mg/dL (0.6-1.3); Estimated Creatinine Clearance 71.4 mL/min (>60); Globulin 3.3 gm/dL (2.3-3.5); Glucose 126 mg/dL (74-106); Magnesium 2.0 mg/dL (1.6-2.6); Osmolality,Calculated 281 (275-295); Phosphorous 4.5 mg/dL (2.4-5.1); Potassium 3.9 mMol/L (3.4-5.1); Sodium 138 mMol/L (136-145); Total Protein 6.7 gm/dL (5.7-8.2); eGFR > 60 See Note
[2025-09-02] MEDS: FLUCONAZOLE 100 MG TABLET 400 MG PO (08:11)
[2025-09-02] MEDS: DOXYCYCLINE 100 MG TABLET PO ×2 (08:13→20:33)
--- NOTE | 2025-09-02 11:00 | XR_ITS ---
EXAMINATION: Ultrasound-guided right hemithorax Ultrasound-guided left hemithorax Date and time: September 02, 2025, 1344 hours INDICATIONS: Difficulty breathing this week, pleural fluid on chest x-ray August 31, 2025 FINDINGS: Bilateral pleural fluid right lung surface adjacent to the pleural surface in all visualized images IMPRESSION: No safe site for thoracentesis
--- NOTE | 2025-09-02 11:11 | ESPR_ITS ---
<Statement entered by Mark Torrez MD - 09/02/25 20:12> No acute overnight events. Seen and examined at bedside and patient states that his shortness of breath has improved compared to when he was initially admitted. Previously saturating 6 L nasal cannula and now saturating on 4 L nasal cannula. 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 Patient is now going to follow-up with a new oncologist and has a Zoom appointment tomorrow at 10:30 AM. Vital signs show pulse of 115 and restarted patient's home digoxin. Leukocytosis unchanged, hemoglobin stable. CBC unremarkable. Ordered ultrasound-guided thoracentesis but no safe site for procedure and resumed Eliquis. Touch base with cardiology and recommended changing Bumex from 2 mg BID to 2 mg daily. Will continue Zosyn and Doxy for pneumonia coverage and fluconazole for cocci and follow-up cocci titers. Blood and sputum cultures showing no growth to date. ----- Note reviewed and agree with care plan as documented. Please refer to the note below for further details. Plan discussed with attending physician Dr. Kendra Torrez MD PGY-2 Internal Medicine Documentation for date of: 09/02/25 Subjective Subjective Interval history: Event overnight. The patient seen examined at bedside while lying down flat. Dyspnea improved with patient saturating 96% on 3 L nasal cannul. No active complaint. Ultrasound pleural indicates no safe site thoracentesis. Hence continue monitoring patient respiratory status and diuresing him. Net -740 mL. CBC noted midly improved WBC and CHEM panel unremarkable. 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 Wanted to confirm possible etiology of pleural effusion however ultrasound showed no safe site for thoracentesis. I discussed the CT findings with the patient. 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 He has an appointment with his new oncologist, Dr. Simon, tomorrow via Zoom at 10:30 AM, where he will receive an update regarding his condition and the upcoming infusion. Will follow up with Dr. Simon regarding his diagnosis. Exam Vital Signs Temp Pulse Resp BP Pulse Ox O2 Del Method O2 Flow Rate 97.5 F 117 H 18 90/66 96 Nasal Cannula 3 09/02/25 07:32 09/02/25 07:32 09/02/25 07:32 09/02/25 07:32 09/02/25 07:32 09/02/25 07:32 09/02/25 07:32 Narrative Exam General: Alert, no acute distress.Conversational and non-toxic appearing. Skin: Warm, dry, intact. No rash or ecchymoses. Head: Normocephalic, atraumatic. Eye: Normal conjunctiva, PERRL. Throat: Oral mucosa moist. No obvious lesions in oropharynx. Cardiovascular: regular rate and rhythm, no murmur, +S1/S2. Respiratory: Lungs are clear to auscultation,mild crackles righ base, no wheezing. Gastrointestinal: Soft, nontender, non-distended. No guarding or rebound tenderness. Extremities: No edema, no cyanosis, no clubbing. Neuro: Alert and oriented x3.No focal deficits observed. Conversant, moving all extremities. No overt cerebellar signs/incoordination. Psychiatric: Cooperative, appropriate affect Objective Labs 09/03/25 05:06 09/03/25 05:06 Labs: Laboratory Results - last 24 hr 09/02/25 04:08 WBC 15.8 H RBC 3.18 L Hgb 9.6 L Hct 29.8 L MCV 94 MCH 30.2 MCHC 32.2 RDW Std Deviation 50.8 H Plt Count 349 Neut % (Auto) 86 H Lymph % (Auto) 7 L [place] % (Auto) 6 Eos % (Auto) 1 Baso % (Auto) 0 Neut # (Auto) 13.5 H Lymph # (Auto) 1.1 [place] # (Auto) 1.0 H Eos # (Auto) 0.1 Baso # (Auto) 0.0 Immature Gran # (Auto) 0.14 H Absolute Nucleated RBC 0.00 Immature Gran % 1 H Nucleated RBC % 0 PT 13.1 H INR 1.3 APTT 34.3 Sodium 138 Potassium 3.9 Chloride 97 L Carbon Dioxide 26.3 Anion Gap 15 BUN 23 Creatinine 1.3 Estim Creat Clear Calc 71.4 eGFR > 60 BUN/Creatinine Ratio 18 Glucose 126 H Calculated Osmolality 281 Calcium 8.7 Corrected Calcium 9.2 Phosphorus 4.5 Magnesium 2.0 Total Bilirubin 0.7 AST 33 ALT 17 Alkaline Phosphatase 175 H Total Protein 6.7 Albumin 3.4 Globulin 3.3 Albumin/Globulin Ratio 1.0 L Quality Measures Quality Measures VTE prophylaxis Advance care planning discussed with:: patient and other Assessment & Plan Assessment Current Active Medications: Generic Name Dose Route Start Last Admin Trade Name Freq PRN Reason Stop Dose Admin Acetaminophen 650 mg 08/30/25 11:56 08/30/25 12:21 Acetaminophen 325 Mg Tablet PO 09/29/25 11:55 650 mg Q6HR PRN Administration Fever > 100.4 Allopurinol 300 mg 08/30/25 09:00 09/02/25 08:11 Allopurinol 100 Mg Tablet PO 09/29/25 08:59 300 mg QDAY DARLENE Administration Apixaban 5 mg 08/30/25 09:00 09/01/25 09:00 Apixaban 2.5 Mg Tablet PO 09/29/25 08:59 5 mg On Hold: 09/01/25 09:55 BID DARLENE Administration Bumetanide 2 mg 09/01/25 06:00 09/02/25 05:58 Bumetanide Inj 0.25 Mg/Ml Vial 4 Ml IVP 09/30/25 20:59 2 mg BIDD DARLENE Administration Digoxin 0.125 mg 09/02/25 11:15 Digoxin 0.125 Mg Tablet PO 10/02/25 11:14 DAILY DARLENE Diltiazem HCl 240 mg 08/30/25 09:00 09/02/25 08:17 Diltiazem Cd 120 Mg Capcr PO 09/29/25 08:59 Not Given QDAY DARLENE Doxycycline Hyclate 100 mg 08/30/25 21:00 09/02/25 08:13 Doxycycline 100 Mg Tablet PO 09/06/25 20:59 100 mg BID DARLENE Administration Fluconazole 400 mg 08/31/25 15:45 09/02/25 08:11 Fluconazole 100 Mg Tablet PO 09/07/25 15:44 400 mg QDAY DARLENE Administration Piperacillin/Tazobactam/Dextrose 3.375 gm in 50 mls @ 12.5 mls/hr 08/30/25 22:00 09/02/25 05:58 Zosyn IV 09/06/25 21:59 12.5 mls/hr Q8HR DARLENE Administration Protocol Ipratropium [place] 0.5 mg 08/31/25 10:17 08/31/25 14:47 Ipratropium Rt 0.5 Mg/ 2.5 Ml Nebu INH 09/30/25 10:16 0.5 mg Q6HR PRN Administration SHORTNESS OF BREATH Levalbuterol HCl 1.25 mg 08/31/25 10:17 08/31/25 14:47 Levalbuterol Rt 1.25 Mg/0.5 Ml Nebu INH 09/30/25 10:16 1.25 mg Q8HR PRN Administration WHEEZING Metoclopramide HCl 10 mg 08/30/25 18:17 08/31/25 18:08 Metoclopramide Inj 5 Mg/Ml Vial 2 Ml IVP 09/02/25 18:16 10 mg Q6HR PRN Administration Vomiting Protocol Metoprolol Tartrate 100 mg 08/30/25 09:00 09/02/25 08:17 Metoprolol Tartrate 25 Mg Tablet PO 09/29/25 08:59 Not Given BID DARLENE Ondansetron HCl 4 mg 08/29/25 21:37 08/30/25 12:22 Ondansetron Inj 2 Mg/Ml Inj 2 Ml IVP 09/28/25 21:36 4 mg Q6H PRN Administration NAUSEA OR VOMITING Protocol Sennosides 1 tab 08/30/25 15:20 Senna/Docusate Sod 1 Tab Tablet PO 09/29/25 15:19 QDAY PRN CONSTIPATION Protocol Sodium Chloride 3 ml 08/31/25 07:12 Sodium Chloride Rt Dominique 0.9% 3 Ml Nebu INH 09/30/25 07:11 PRN PRN SOLN Protocol Plan 65-year-old male with a past medical history of A-fib, status post pacemaker placement, hypertension, HFpEF, arthritis, and Castleman syndrome who presented to the ED in the evening of 08/29/2025 with a chief complaint of shortness of breath. Patient was found to have a right basilar pneumonia on chest x-ray. It was reported that the patient desaturated to the mid 80%'s when he was lying down in the ED bed.Patient was admitted for acute hypoxic respiratory failure secondary to community-acquired pneumonia. #Acute hypoxic respiratory failure secondary to #Superimposed bacterial pneumonia, right base #Large right pleural effusion #Valley fever/coccidiomycosis Curb 65 score of 2: Respiratory rate over 30 and age over 65. Moderate risk group, 6.8% 30 mortality Patient presented with 1 week history of shortness of breath and a 1 day history of cough productive of clear sputum. Patient is afebrile. It was reported that the patient desaturated to the mid 80%'s when he was lying down in the ED bed, upon admission he was saturating at 96% on 4 L nasal cannula. WBC of 19.7, has been elevated on previous visits, may be secondary to home methylprednisolone use for arthritis, which the patient denies taking any more, this makes defending his chronically elevated WBC count difficult to defend, though it does make it less likely that it is directly associated with his acute hypoxic respiratory failure secondary to suspected community-acquired pneumonia -08/29/25:Chest x-ray showed right basilar pneumonia, central vascular congestion and prominence, mild heart failure - Patient does not use home oxygen, satting at 96% on 3 L on exam - 08/30 STOPPED Ceftriaxone and Azithromycin - MRSA negative - CXR 08/31 showed moderate CHF, Large right pleural effusion - 08/30 Cocci Positive, pending titers - Blood cultures no growth after 48 hrs in 2 bottle - Sputum cultures showed, mixed oral mignon - Gram stain 3+GPC, 2+ GPR, 1+GPR Plan: - Zosyn 3.375gm q8h (08/30- - Doxycycline 100mg BID (08/30- - Continue Fluconazole 400 mg po qday (08/31- - Continue Bumex 2 mg IV BID - Continue breathing treatment as needed - O2 nasal cannula support as needed for saturation over 96% #A-fib with RVR, chronic #Sinus Sick Syndrome S/p pacemaker placement EKG showed A-fib RVR with a rate of 105, may be contributing to the patient's soft blood pressure Pt has pacemaker placed in 2006 which has been replaced [address] Marquez CHADsVAS score 4 -?6.7% risk of stroke/TIA/systemic embolism HAS BLED score 2 Plan: - Metoprolol tartrate 100 mg every 12 hours - Eliquis 5 mg p.o. twice daily - Diltiazem 240 mg p.o. daily - Digoxin 0.125 mg po daily - Cardiology consulted- monitor renal function, US thoracentesis (no safe site of thora) - Keep K > 4 and Mg > 2 #HFpEF EF 55-60% #Mild Congestive heart failure Echo on 03/17/2025 showed EF 55-60%. Diastolic function difficult to evaluate due to A-fib. Severe biatrial dilation. Patient had no signs of fluid overload on exam: Negative for crackles or peripheral edema. 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 He was recently cleared by wound care to resume his infusions 05/25/25 Chest CTA - Extensive tumor mediastinal lymphadenopathy and biilateral metastatic pulmonary nodules. At least 10 subcentimeter metastatic pulmonary nodules 03/15/25 Chest CTA - extensive mediastinal lymphadenopathy, including anterior mediastinum, aortopulmonary window, high left periaortic, tracheobronchial and subcarinal as well as adjacent to the descending thoracic aorta, bilateral subcentimeter pulmonary nodules 07/07/25 [place] [id number] - I will consult with the patient's oncologist to confirm if they are aware of the CT findings, as the patient did not have any pulmonary nodules in 2023, and to inquire whether IL-6 markers are being used to assess progression of Castleman syndrome. #Hypertension Presented with hypertension stage II 143/88 Plan - holding home lisinopril for now due to soft pressures #Acute normocytic anemia Patient presented with a hemoglobin of 10.8, decreased from previous hospital visits. Low suspicion of bleeding at this time. May be associated with anemia of chronic disease due to Castleman syndrome Plan: - Daily CBCS - Transfuse if below 7 Hospital management: Lines: peripheral IV Diet: cardiac Bowel: Senna/docusate DVT prophylaxis: Eliquis 5mg Disposition: Med/tele,, AHRF 2/2PNA escalate from ceftriaxone/azithromycin to Zosyn and doxycycline. CODE STATUS: Full code Patient plan of care was discussed with the attending physician, Dr. Gardner & senior resident Dr. Javon Gomez MD PGY-1 Attending Provider Attestation/Addendum I have examined the patient, reviewed labs and imaging findings, discussed the case with the resident(s), and reviewed entered orders. I agree with the plan of care as outlined in this note. Patient seen at bedside. No acute overnight events. Patient still requiring 3 L nasal cannula. Patient admitted for acute hypoxic respiratory failure most likely secondary to bacterial pneumonia. Continue IV antibiotics. Cocci serology returned positive and pending titers. Continue IV antibiotics. Patient was also noted to have a large right pleural effusion. Patient will go for thoracentesis today and pleural studies including cell counts, Gram stain/culture/cytology will be sent. Continue IV diuresis. Patient reports he worked with [employer] for over 30 years. Possible patient has some underlying ILD. Counseled he will need to follow-up with pulmonology outpatient once medically cleared. Patient has underlying chronic atrial fibrillation with mild RVR at times. Continue metoprolol, diltiazem, and digoxin. Ordered digoxin level. Will resume NOAC after thoracentesis. Blood cultures show no growth at 48 hours. Patient has history of SSS and status post pacemaker. Continue IV diuresis for history of HFpEF. Outpatient follow-up for Castleman syndrome. Patient updated on the plan and in agreement. All questions answered to satisfaction. Please see residents note for additional details and management. Dr. Kendra MD
[2025-09-02] MEDS: DIGOXIN 0.125 MG TABLET PO (12:24)
[2025-09-02] MEDS: ONDANSETRON INJ 2 MG/ML INJ 2 ML 4 MG IVP (14:22)
--- NOTE | 2025-09-02 18:37 | ESPR_ITS ---
<Statement entered by Kervin Marquez MD - 09/05/25 12:52> I personally evaluated examined the patient and medical surgical floor admit hospital shortness of breath mild HFpEF congestive heart failure and pleural effusions and pneumonia as well continues to improve slowly with diuretic therapy agree with the treatment plan recommendation as documented by PGY 2 Dr. Sher will continue to monitor the patient closely may be discharged home in 1 to 2 days depending on his clinical progress with heart failure is saturating well not having much orthopnea. Documentation for date of: 09/02/25 Subjective Subjective Interval history: Patient examined at bedside. Well has no major complaints. Patient has urine output -300 cc past 24 hours. Vitals are stable saturating 93% on 4 L NC. Will continue with 2 mg Bumex twice daily. Eliquis 5 mg twice daily, metoprolol 100 twice daily. Creatinine is 1.1. On physical exam there are diminished lung sounds with dullness to percussion. Patient may undergo thoracentesis for pleural effusion. 09/02: Patient examined at bedside. No major complaints, states that he is feeling better. Saturating well on 4 L nasal cannula. Primary care team has been able to wean oxygen slightly since yesterday.'s are stable, creatinine 1.3. Ultrasound for possible thoracentesis showed that no safe site for seizure. To continue diuresis. Adjust Bumex dose from 2 mg twice daily to 2 mg daily starting tomorrow. He was resumed on home digoxin dose today. Still is tachycardic 100?110. Denies any palpitations. Will adjust medications if no improvement. Exam Vital Signs Temp Pulse Resp BP Pulse Ox O2 Del Method O2 Flow Rate 97.5 F 115 H 18 124/75 96 Nasal Cannula 3 09/02/25 15:44 09/02/25 17:22 09/02/25 15:44 09/02/25 17:22 09/02/25 15:44 09/02/25 15:44 09/02/25 15:44 Narrative Exam General: Alert and oriented x3. No acute distress, cooperative HEENT: NCAT, No JVD noted. Mucosa moist. Pupils are equal and reactive to light bilaterally Cardiovascular: Normal S1 and S2. Regular rate and rhythm. Respiratory: decreased breath sounds Abdomen: Soft, nontender, not distended, normal bowel sounds. Skin: Warm to touch, dry, no rashes noted Musculoskeletal: No gross injuries. Able to move all 4 extremities. No pitting edema Neuro: Alert and oriented x3. No focal neuro deficits. Psych: Normal affect and mood Objective Labs 09/02/25 04:08 09/02/25 04:08 Labs: Laboratory Results - last 24 hr 09/02/25 04:08 WBC 15.8 H RBC 3.18 L Hgb 9.6 L Hct 29.8 L MCV 94 MCH 30.2 MCHC 32.2 RDW Std Deviation 50.8 H Plt Count 349 Neut % (Auto) 86 H Lymph % (Auto) 7 L [place] % (Auto) 6 Eos % (Auto) 1 Baso % (Auto) 0 Neut # (Auto) 13.5 H Lymph # (Auto) 1.1 [place] # (Auto) 1.0 H Eos # (Auto) 0.1 Baso # (Auto) 0.0 Immature Gran # (Auto) 0.14 H Absolute Nucleated RBC 0.00 Immature Gran % 1 H Nucleated RBC % 0 PT 13.1 H INR 1.3 APTT 34.3 Sodium 138 Potassium 3.9 Chloride 97 L Carbon Dioxide 26.3 Anion Gap 15 BUN 23 Creatinine 1.3 Estim Creat Clear Calc 71.4 eGFR > 60 BUN/Creatinine Ratio 18 Glucose 126 H Calculated Osmolality 281 Calcium 8.7 Corrected Calcium 9.2 Phosphorus 4.5 Magnesium 2.0 Total Bilirubin 0.7 AST 33 ALT 17 Alkaline Phosphatase 175 H Total Protein 6.7 Albumin 3.4 Globulin 3.3 Albumin/Globulin Ratio 1.0 L Quality Measures Quality Measures VTE prophylaxis Advance care planning discussed with:: patient Assessment & Plan Assessment Current Active Medications: Generic Name Dose Route Start Last Admin Trade Name Freq PRN Reason Stop Dose Admin Acetaminophen 650 mg 08/30/25 11:56 08/30/25 12:21 Acetaminophen 325 Mg Tablet PO 09/29/25 11:55 650 mg Q6HR PRN Administration Fever > 100.4 Allopurinol 300 mg 08/30/25 09:00 09/02/25 08:11 Allopurinol 100 Mg Tablet PO 09/29/25 08:59 300 mg QDAY DARLENE Administration Apixaban 5 mg 08/30/25 09:00 09/01/25 09:00 Apixaban 2.5 Mg Tablet PO 09/29/25 08:59 5 mg BID DARLENE Administration Bumetanide 2 mg 09/01/25 06:00 09/02/25 17:22 Bumetanide Inj 0.25 Mg/Ml Vial 4 Ml IVP 09/30/25 20:59 2 mg BIDD DARLENE Administration Digoxin 0.125 mg 09/02/25 11:15 09/02/25 12:24 Digoxin 0.125 Mg Tablet PO 10/02/25 11:14 0.125 mg DAILY DARLENE Administration Diltiazem HCl 240 mg 08/30/25 09:00 09/02/25 08:17 Diltiazem Cd 120 Mg Capcr PO 09/29/25 08:59 Not Given QDAY DARLENE Doxycycline Hyclate 100 mg 08/30/25 21:00 09/02/25 08:13 Doxycycline 100 Mg Tablet PO 09/06/25 20:59 100 mg BID DARLENE Administration Fluconazole 400 mg 08/31/25 15:45 09/02/25 08:11 Fluconazole 100 Mg Tablet PO 09/07/25 15:44 400 mg QDAY DARLENE Administration Piperacillin/Tazobactam/Dextrose 3.375 gm in 50 mls @ 12.5 mls/hr 08/30/25 22:00 09/02/25 14:21 Zosyn IV 09/06/25 21:59 12.5 mls/hr Q8HR DARLENE Administration Protocol Ipratropium [place] 0.5 mg 08/31/25 10:17 08/31/25 14:47 Ipratropium Rt 0.5 Mg/ 2.5 Ml Nebu INH 09/30/25 10:16 0.5 mg Q6HR PRN Administration SHORTNESS OF BREATH Levalbuterol HCl 1.25 mg 08/31/25 10:17 08/31/25 14:47 Levalbuterol Rt 1.25 Mg/0.5 Ml Nebu INH 09/30/25 10:16 1.25 mg Q8HR PRN Administration WHEEZING Metoprolol Tartrate 100 mg 08/30/25 09:00 09/02/25 08:17 Metoprolol Tartrate 25 Mg Tablet PO 09/29/25 08:59 Not Given BID DARLENE Ondansetron HCl 4 mg 08/29/25 21:37 09/02/25 14:22 Ondansetron Inj 2 Mg/Ml Inj 2 Ml IVP 09/28/25 21:36 4 mg Q6H PRN Administration NAUSEA OR VOMITING Protocol Sennosides 1 tab 08/30/25 15:20 Senna/Docusate Sod 1 Tab Tablet PO 09/29/25 15:19 QDAY PRN CONSTIPATION Protocol Sodium Chloride 3 ml 08/31/25 07:12 Sodium Chloride Rt Dominique 0.9% 3 Ml Nebu INH 09/30/25 07:11 PRN PRN SOLN Protocol Plan 65-year-old male with history of long standing hypertension, pacemaker implantation, atrial fibrillation, status post ablation of AV node. Has been on beta-blockers, metoprolol, diltiazem fo rate control and Eliquis for anticoagulation. Cardiology consulted for SOB, possible volume overload, HFrEF. 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 # Small right pleural effusion, parapneumonic effusion. # Mild pulmonary congestion with heart failure with reduced ejection fraction. # Hypertensive cardiovascular disease. # Atrial fibrillation, chronic. # Status post permanent pacemaker implantation. # Castleman disease, lymphoproliferative disorder undergoing extensive treatment at [facility] including immunosuppressive drugs therapy. Plan: Continue with Bumex 2mg daily starting tomorrow. He is having good urine output. U/s of chest is pending. Patient was not able to get thoracentesis for fluid removal. Oxygen requirements are mildly improving. He does not appear to be fluid overloaded on exam. Was resumed on home digoxin dose today. Continue to monitor. Primary care team to manage above conditions and ongoing care needs. The patient's management plan was discussed with my attending physician Dr. Marquez. Naina Sher, PGY-2
[2025-09-02] MEDS: METOPROLOL TARTRATE 25 MG TABLET 100 MG PO (20:32)
[2025-09-02] MEDS: APIXABAN 2.5 MG TABLET 5 MG PO (20:33)
[2025-09-03] VITALS (14 sets, daily range): BP systolic 92–132; BP diastolic 58–99; PULSE 80–122; RESP 19–23; TEMP 36.4–37.6; O2SAT 94–97
[2025-09-03] MEDS: PIPER/TAZO 3.375 GM PREMIX 3.375 GM/50 ML BAG IV ×3 (05:50→21:58)
[2025-09-03 06:01] LABS: Basophils # (Auto) 0.0 Thou/mm3 (0.0-0.2); Basophils % (Auto) 0 % (0-2.5); Eosinophils # (Auto) 0.1 Thou/mm3 (0.0-0.5); Eosinophils % (Auto) 0 % (0-10); Hematocrit 29.3 % (41.0-53.0); Hemoglobin 9.4 g/dL (13.5-16.0); Immature Granulocytes Auto 0.13 Thou/mm3 (0.00-0.00); Lymphocytes # (Auto) 1.1 Thou/mm3 (1.0-4.8); Lymphocytes % (Auto) 8 % (10-50); Mean Corpuscular HGB Conc 32.1 g/dl (31.0-37.0); Mean Corpuscular Hemoglobin 29.7 pg (25.0-35.0); Mean Corpuscular Volume 92 fL (80-100); Monocytes # (Auto) 0.8 Thou/mm3 (0.0-0.8); Monocytes % (Auto) 6 % (0-12); Neutrophils # (Auto) 12.4 Thou/mm3 (1.8-7.7); Neutrophils % (Auto) 85 % (37-80); Nucleated Red Blood Cell # 0.00 Thou/mm3 (0.00-0.00); Nucleated Red Blood Cell % 0 /100 WBC (0); Platelet Count 367 Thou/mm3 (140-440); RDW Standard Deviation 49.5 fL (35.1-43.9); Red Blood Count 3.17 Miln/mm3 (4.50-5.90); White Blood Count 14.6 Thou/mm3 (3.8-10.6)
[2025-09-03 06:28] LABS: Alanine Aminotransferase 19 U/L (10-49); Albumin, Serum 3.5 gm/dL (3.4-4.8); Albumin/Globulin Ratio 1.0 (1.2-2.2); Alkaline Phosphatase 163 U/L (46-116); Anion Gap 14 (7-16); Aspartate Amino Transferase 29 U/L (0-34); BUN/Creatinine Ratio 22 Ratio (12-20); Bilirubin,Total 0.8 mg/dL (0.3-1.2); Blood Urea Nitrogen 29 mg/dL (9-23); Calcium 8.6 mg/dL (8.3-10.6); Calcium (Corrected) 9.0 mg/dL (8.5-10.1); Carbon Dioxide 28.4 mMol/L (20.0-31.0); Chloride 96 mMol/L (98-107); Creatinine (Component) 1.3 mg/dL (0.6-1.3); Estimated Creatinine Clearance 71.4 mL/min (>60); Globulin 3.4 gm/dL (2.3-3.5); Glucose 126 mg/dL (74-106); Magnesium 1.9 mg/dL (1.6-2.6); Osmolality,Calculated 283 (275-295); Phosphorous 4.0 mg/dL (2.4-5.1); Potassium 3.6 mMol/L (3.4-5.1); Sodium 138 mMol/L (136-145); Total Protein 6.9 gm/dL (5.7-8.2); eGFR > 60 See Note
[2025-09-03] MEDS: Magnesium Sulfate 2 GM Ivpb 2 GM/50 ML BAG IV (08:54)
[2025-09-03] MEDS: ONDANSETRON INJ 2 MG/ML INJ 2 ML 4 MG IVP (08:55)
[2025-09-03] MEDS: BUMETANIDE INJ 0.25 MG/ML VIAL 4 ML 2 MG IVP (08:55)
[2025-09-03] MEDS: FLUCONAZOLE 100 MG TABLET 400 MG PO (08:56)
[2025-09-03] MEDS: DOXYCYCLINE 100 MG TABLET PO ×2 (08:57→20:59)
[2025-09-03] MEDS: DIGOXIN 0.125 MG TABLET PO (08:57)
[2025-09-03] MEDS: DILTIAZEM CD 120 MG CAPCR 240 MG PO (08:57)
[2025-09-03] MEDS: APIXABAN 2.5 MG TABLET 5 MG PO ×2 (08:58→20:58)
[2025-09-03] MEDS: METOPROLOL TARTRATE 25 MG TABLET 100 MG PO ×2 (08:58→20:57)
--- NOTE | 2025-09-03 09:21 | EKG_ITS ---
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 Wet Process: RTSDHARA : 1960 Requested By: Elaine Gomez Order Number: [id number] Reading MD: Elaine Gomez Measurements Intervals [place] Rate: 86 P: VA: QRS: 40 QRSD: 102 T: -17 QT: 433 QTc: 518 Interpretive Statements ATRIAL FIBRILLATION WITH ABERRANT CONDUCTION OR VENTRICULAR PREMATURE COMPLEXES NONSPECIFIC T-WAVE ABNORMALITY PROLONGED QT INTERVAL Compared to ECG 08/29/2025 12:32:28 Ventricular premature complex(es) now present Aberrant conduction of supraventricular beat(s) now present Prolonged QT interval now present T-wave abnormality still present /store/S0/[id number].pdf
--- NOTE | 2025-09-03 11:01 | CHAP ---
Patient was visited by a Spiritual Care Volunteer on 09/02/2025 between 0850 and 1200 and received comfort, encouragement and/or prayer.
--- NOTE | 2025-09-03 11:08 | PC.SS ---
rounding note: Weaning off with a possible d/c home today
--- NOTE | 2025-09-03 12:01 | PC.NURSE ---
Pt oxygen at room air at rest is 87%
--- NOTE | 2025-09-03 13:32 | ESPR_ITS ---
<Statement entered by Mark Torrez MD - 09/03/25 15:11> No acute overnight events. Seen and examined at bedside and resting comfortably in bed. He is now saturating well on 3 L nasal cannula. States that his mouth is very dry and gave ok for ice chips. Bumex dosage was decreased from 2 mg IV bid to 2 eliazar daily. 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 Will continue with zosyn and doxycycline for pneumonia coverage and fluconazole for cocci. Informed patient that will need to follow-up with PCP regarding UCD cocci IgG titers. Anticipate discharge within next 24-48 hours and may need home oxygen. Labs reviewed and largely unremarkable. ----- Note reviewed and agree with care plan as documented. Please refer to the note below for further details. Plan discussed with attending physician Dr. Kendra Torrez MD PGY-2 Internal Medicine Documentation for date of: 09/03/25 Subjective Subjective Interval history: No acute events overnight. The patient was seen and examined at the bedside today. Oxygen was reduced to 2 L, with oxygen saturation between 93-94%. Lab results reviewed: CBC showed significant improvement in leukocytosis, and the chemistry panel was unremarkable. Continuing zosyn and doxycycline for pneumonia coverage, as well as fluconazole for coccidioidomycosis. The patient was informed about the need to follow up with their PCP regarding UCD cocci IgG titers. I spoke with the patient?s oncologist, Dr. Aroldo Moctezuma, and updated him on the patient?s condition. According to Dr. Moctezuma, theys are aware pulmonary metastatic nodules. He recommended informing the oncology team about the patient?s valley fever titer results. As the patient is unable to resume the IL- 6 inhibitor infusion due to the positive valley fever/coccidioidomycosis result, we will adjust management accordingly. Bumex has been reduced to once daily. We anticipate discharge within the next 24-48 hours. Exam Vital Signs Temp Pulse Resp BP Pulse Ox O2 Del Method O2 Flow Rate 97.5 F 100 20 107/99 H 95 Nasal Cannula 3 09/03/25 12:00 09/03/25 12:00 09/03/25 12:00 09/03/25 12:00 09/03/25 12:00 09/03/25 12:00 09/03/25 12:00 Narrative Exam General: Alert, no acute distress.Conversational and non-toxic appearing. Skin: Warm, dry, intact. No rash or ecchymoses. Head: Normocephalic, atraumatic. Eye: Normal conjunctiva, PERRL. Throat: Oral mucosa moist. No obvious lesions in oropharynx. Cardiovascular: regular rate and rhythm, no murmur, +S1/S2. Respiratory: Lungs are clear to auscultation,mild crackles righ base, no wheezing. Gastrointestinal: Soft, nontender, non-distended. No guarding or rebound tenderness. Extremities: No edema, no cyanosis, no clubbing. Neuro: Alert and oriented x3.No focal deficits observed. Conversant, moving all extremities. No overt cerebellar signs/incoordination. Psychiatric: Cooperative, appropriate affect Objective Labs 09/04/25 06:00 09/04/25 06:00 Labs: Laboratory Results - last 24 hr 09/03/25 05:06 WBC 14.6 H RBC 3.17 L Hgb 9.4 L Hct 29.3 L MCV 92 MCH 29.7 MCHC 32.1 RDW Std Deviation 49.5 H Plt Count 367 Neut % (Auto) 85 H Lymph % (Auto) 8 L [place] % (Auto) 6 Eos % (Auto) 0 Baso % (Auto) 0 Neut # (Auto) 12.4 H Lymph # (Auto) 1.1 [place] # (Auto) 0.8 Eos # (Auto) 0.1 Baso # (Auto) 0.0 Immature Gran # (Auto) 0.13 H Absolute Nucleated RBC 0.00 Immature Gran % 1 H Nucleated RBC % 0 Sodium 138 Potassium 3.6 Chloride 96 L Carbon Dioxide 28.4 Anion Gap 14 BUN 29 H Creatinine 1.3 Estim Creat Clear Calc 71.4 eGFR > 60 BUN/Creatinine Ratio 22 H Glucose 126 H Calculated Osmolality 283 Calcium 8.6 Corrected Calcium 9.0 Phosphorus 4.0 Magnesium 1.9 Total Bilirubin 0.8 AST 29 ALT 19 Alkaline Phosphatase 163 H Total Protein 6.9 Albumin 3.5 Globulin 3.4 Albumin/Globulin Ratio 1.0 L Quality Measures Quality Measures VTE prophylaxis Advance care planning discussed with:: patient and spouse Assessment & Plan Assessment Current Active Medications: Generic Name Dose Route Start Last Admin Trade Name Freq PRN Reason Stop Dose Admin Acetaminophen 650 mg 12/06/25 11:56 08/30/25 12:21 Acetaminophen 325 Mg Tablet PO 09/29/25 11:55 650 mg Q6HR PRN Administration Fever > 100.4 Allopurinol 300 mg 08/30/25 09:00 09/03/25 08:56 Allopurinol 100 Mg Tablet PO 09/29/25 08:59 300 mg On Hold: 09/03/25 09:13 QDAY DARLENE Administration Apixaban 5 mg 08/30/25 09:00 09/03/25 08:58 Apixaban 2.5 Mg Tablet PO 09/29/25 08:59 5 mg BID DARLENE Administration Bumetanide 2 mg 09/03/25 09:00 09/03/25 08:55 Bumetanide Inj 0.25 Mg/Ml Vial 4 Ml IVP 10/03/25 08:59 2 mg DAILY DARLENE Administration Digoxin 0.125 mg 09/02/25 11:15 09/03/25 08:57 Digoxin 0.125 Mg Tablet PO 10/02/25 11:14 0.125 mg DAILY DARLENE Administration Diltiazem HCl 240 mg 08/30/25 09:00 09/03/25 08:57 Diltiazem Cd 120 Mg Capcr PO 09/29/25 08:59 240 mg QDAY DARLENE Administration Doxycycline Hyclate 100 mg 08/30/25 21:00 09/03/25 08:57 Doxycycline 100 Mg Tablet PO 09/06/25 20:59 100 mg BID DARLENE Administration Fluconazole 400 mg 08/31/25 15:45 09/03/25 08:56 Fluconazole 100 Mg Tablet PO 09/07/25 15:44 400 mg QDAY DARLENE Administration Piperacillin/Tazobactam/Dextrose 3.375 gm in 50 mls @ 12.5 mls/hr 08/30/25 22:00 09/03/25 05:50 Zosyn IV 09/06/25 21:59 12.5 mls/hr Q8HR DARLENE Administration Protocol Ipratropium [place] 0.5 mg 08/31/25 10:17 08/31/25 14:47 Ipratropium Rt 0.5 Mg/ 2.5 Ml Nebu INH 09/30/25 10:16 0.5 mg Q6HR PRN Administration SHORTNESS OF BREATH Levalbuterol HCl 1.25 mg 08/31/25 10:17 08/31/25 14:47 Levalbuterol Rt 1.25 Mg/0.5 Ml Nebu INH 09/30/25 10:16 1.25 mg Q8HR PRN Administration WHEEZING Metoprolol Tartrate 100 mg 08/30/25 09:00 09/03/25 08:58 Metoprolol Tartrate 25 Mg Tablet PO 09/29/25 08:59 100 mg BID DARLENE Administration Sennosides 1 tab 08/30/25 15:20 Senna/Docusate Sod 1 Tab Tablet PO 09/29/25 15:19 QDAY PRN CONSTIPATION Protocol Sodium Chloride 3 ml 08/31/25 07:12 Sodium Chloride Rt Dominique 0.9% 3 Ml Nebu INH 09/30/25 07:11 PRN PRN SOLN Protocol Plan 65-year-old male with a past medical history of A-fib, status post pacemaker placement, hypertension, HFpEF, arthritis, and Castleman syndrome who presented to the ED in the evening of 08/29/2025 with a chief complaint of shortness of breath. Patient was found to have a right basilar pneumonia on chest x-ray. It was reported that the patient desaturated to the mid 80%'s when he was lying down in the ED bed.Patient was admitted for acute hypoxic respiratory failure secondary to community-acquired pneumonia. #Acute hypoxic respiratory failure secondary to #Superimposed bacterial pneumonia, right base #Large right pleural effusion #Valley fever/coccidiomycosis Curb 65 score of 2: Respiratory rate over 30 and age over 65. Moderate risk group, 6.8% 30 mortality Patient presented with 1 week history of shortness of breath and a 1 day history of cough productive of clear sputum. Patient is afebrile. It was reported that the patient desaturated to the mid 80%'s when he was lying down in the ED bed, upon admission he was saturating at 96% on 4 L nasal cannula. WBC of 19.7, has been elevated on previous visits, may be secondary to home methylprednisolone use for arthritis, which the patient denies taking any more, this makes defending his chronically elevated WBC count difficult to defend, though it does make it less likely that it is directly associated with his acute hypoxic respiratory failure secondary to suspected community-acquired pneumonia -08/29/25:Chest x-ray showed right basilar pneumonia, central vascular congestion and prominence, mild heart failure - Patient does not use home oxygen, satting at 96% on 3 L on exam - 08/30 STOPPED Ceftriaxone and Azithromycin - MRSA negative - CXR 08/31 showed moderate CHF, Large right pleural effusion - 08/30 Cocci Positive, pending titers - Blood cultures no growth after 48 hrs in 2 bottle - Sputum cultures showed, mixed oral mignon - Gram stain 3+GPC, 2+ GPR, 1+GPR Plan: - Zosyn 3.375gm q8h (08/30- - Doxycycline 100mg BID (08/30- - Continue Fluconazole 400 mg po qday (08/31- - Continue Bumex 2 mg IV BID--> QDAY - Continue breathing treatment as needed - O2 nasal cannula support as needed for saturation over 96% #A-fib with RVR, chronic #Sinus Sick Syndrome S/p pacemaker placement EKG showed A-fib RVR with a rate of 105, may be contributing to the patient's soft blood pressure Pt has pacemaker placed in 2006 which has been replaced [address] Marquez CHADsVAS score 4 -?6.7% risk of stroke/TIA/systemic embolism HAS BLED score 2 Plan: - Metoprolol tartrate 100 mg every 12 hours - Eliquis 5 mg p.o. twice daily - Diltiazem 240 mg p.o. daily - Digoxin 0.125 mg po daily - Cardiology consulted- monitor renal function, US thoracentesis (no safe site of thora) - Keep K > 4 and Mg > 2 #HFpEF EF 55-60% #Mild Congestive heart failure ( improving) Echo on 03/17/2025 showed EF 55-60%. Diastolic function difficult to evaluate due to A-fib. Severe biatrial dilation. Patient had no signs of fluid overload on exam: Negative for crackles or peripheral edema. 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 He was recently cleared by wound care to resume his infusions 05/25/25 Chest CTA - Extensive tumor mediastinal lymphadenopathy and biilateral metastatic pulmonary nodules. At least 10 subcentimeter metastatic pulmonary nodules 03/15/25 Chest CTA - extensive mediastinal lymphadenopathy, including anterior mediastinum, aortopulmonary window, high left periaortic, tracheobronchial and subcarinal as well as adjacent to the descending thoracic aorta, bilateral subcentimeter pulmonary nodules 07/07/25 [place] 6 [place] [id number] 09/02- I will consult with the patient's oncologist to confirm if they are aware of the CT findings, as the patient did not have any pulmonary nodules in 2023, and to inquire whether IL-6 markers are being used to assess progression of Castleman syndrome. 09/03- I spoke with the patient?s oncologist, Dr. Aroldo Moctezuma, and updated him on the patient?s condition. According to Dr. Moctezuma, theys are aware pulmonary metastatic nodules. He recommended informing the oncology team about the patient?s valley fever titer results. As the patient is unable to resume the IL- 6 inhibitor infusion due to the positive valley fever/coccidioidomycosis result. Plan - Follow-up oncologist outpatient #Hypertension Presented with hypertension stage II 143/88 Plan - holding home lisinopril for now due to soft pressures #Acute normocytic anemia Patient presented with a hemoglobin of 10.8, decreased from previous hospital visits. Low suspicion of bleeding at this time. May be associated with anemia of chronic disease due to Castleman syndrome Plan: - Daily CBCS - Transfuse if below 7 Hospital management: Lines: peripheral IV Diet: cardiac Bowel: Senna/docusate DVT prophylaxis: Eliquis 5mg Disposition: Med/tele,, AHRF 2/2PNA escalate from ceftriaxone/azithromycin to Zosyn and doxycycline. CODE STATUS: Full code Patient plan of care was discussed with the attending physician, Dr. Gardner & senior resident Dr. Javon Gomez MD PGY-1 Attending Provider Attestation/Addendum I have examined the patient, reviewed labs and imaging findings, discussed the case with the resident(s), and reviewed entered orders. I agree with the plan of care as outlined in this note. Patient seen at bedside. No acute overnight events. Patient's O2 requirements continue to improve. Now tolerating 3 to 4 L nasal cannula. Patient reports he had virtual appointment with new oncologist today and will begin infusions for Castleman syndrome once patient's coccidioidomycosis is addressed. Patient admitted for acute hypoxic respiratory failure most likely multifactorial secondary to bacterial pneumonia, pulmonary coccidioidomycosis, and castlemann syndrome. continue IV antibiotics. Cocci serology returned positive and pending titers. Continue fluconazole for now. Patient was also noted to have a large right pleural effusion on CXR. Patient was evaluated by IR for thoracentesis although was deemed not enough fluid to remove. Continue IV diuresis. Patient reports he worked with [employer] for over 30 years. Possible patient has some underlying ILD and advised outpatient follow-up with pulmonology. Patient has underlying chronic atrial fibrillation with mild intermittent RVR at times. Continue metoprolol, diltiazem, and digoxin. Ordered digoxin level. Continue home Eliquis. Blood cultures show no growth at 48 hours. Patient has history of SSS and status post pacemaker. Continue IV diuresis for history of HFpEF. Outpatient follow-up for Castleman syndrome. Patient updated on the plan and in agreement. All questions answered to satisfaction. Please see residents note for additional details and management. Dr. Kendra MD
--- NOTE | 2025-09-03 15:50 | ESPR_ITS ---
<Statement entered by Kervin Marquez MD - 09/05/25 12:54> I personally examined evaluate the patient with resident physician PGY 2 Dr. Cline the patient is doing well now improved with diuretic therapy shortness with improved remains in A-fib rate reasonably controlled well required multiple medications agree with treatment plan recommendation as documented by PGY 2 Dr. Cline will monitor the patient as an outpatient following discharge she Documentation for date of: 09/03/25 Subjective Subjective Interval history: Patient examined at bedside. Well has no major complaints. Patient has urine output -300 cc past 24 hours. Vitals are stable saturating 93% on 4 L NC. Will continue with 2 mg Bumex twice daily. Eliquis 5 mg twice daily, metoprolol 100 twice daily. Creatinine is 1.1. On physical exam there are diminished lung sounds with dullness to percussion. Patient may undergo thoracentesis for pleural effusion. 09/02: Patient examined at bedside. No major complaints, states that he is feeling better. Saturating well on 4 L nasal cannula. Primary care team has been able to wean oxygen slightly since yesterday.'s are stable, creatinine 1.3. Ultrasound for possible thoracentesis showed that no safe site for seizure. To continue diuresis. Adjust Bumex dose from 2 mg twice daily to 2 mg daily starting tomorrow. He was resumed on home digoxin dose today. Still is tachycardic 100?110. Denies any palpitations. Will adjust medications if no improvement. 09/03: Patient examined at bedside. Laying comfortably, no major complaints. Urine output -580 cc past 24 hours. Blood pressure 107/99, heart rate 90?100. Well-controlled after starting digoxin yesterday. Oxygen has been weaned to 2 L nasal cannula at 95%. And has remained stable 1.3. Max dose was changed from 2 mg twice daily to 2 mg daily. No chest pain or palpitations. Cocci titers are pending. He remains on fluconazole therapy. Exam Vital Signs Temp Pulse Resp BP Pulse Ox O2 Del Method O2 Flow Rate 97.5 F 101 H 20 132/84 H 95 Nasal Cannula 3 09/03/25 15:28 09/03/25 15:28 09/03/25 15:28 09/03/25 15:28 09/03/25 15:28 09/03/25 15:28 09/03/25 15:28 Narrative Exam General: Alert and oriented x3. No acute distress, cooperative HEENT: NCAT, No JVD noted. Mucosa moist. Pupils are equal and reactive to light bilaterally Cardiovascular: Normal S1 and S2. Regular rate and rhythm. Respiratory: decreased breath sounds Abdomen: Soft, nontender, not distended, normal bowel sounds. Skin: Warm to touch, dry, no rashes noted Musculoskeletal: No gross injuries. Able to move all 4 extremities. No pitting edema Neuro: Alert and oriented x3. No focal neuro deficits. Psych: Normal affect and mood Objective Labs 09/03/25 05:06 09/03/25 05:06 Labs: Laboratory Results - last 24 hr 09/03/25 05:06 WBC 14.6 H RBC 3.17 L Hgb 9.4 L Hct 29.3 L MCV 92 MCH 29.7 MCHC 32.1 RDW Std Deviation 49.5 H Plt Count 367 Neut % (Auto) 85 H Lymph % (Auto) 8 L [place] % (Auto) 6 Eos % (Auto) 0 Baso % (Auto) 0 Neut # (Auto) 12.4 H Lymph # (Auto) 1.1 [place] # (Auto) 0.8 Eos # (Auto) 0.1 Baso # (Auto) 0.0 Immature Gran # (Auto) 0.13 H Absolute Nucleated RBC 0.00 Immature Gran % 1 H Nucleated RBC % 0 Sodium 138 Potassium 3.6 Chloride 96 L Carbon Dioxide 28.4 Anion Gap 14 BUN 29 H Creatinine 1.3 Estim Creat Clear Calc 71.4 eGFR > 60 BUN/Creatinine Ratio 22 H Glucose 126 H Calculated Osmolality 283 Calcium 8.6 Corrected Calcium 9.0 Phosphorus 4.0 Magnesium 1.9 Total Bilirubin 0.8 AST 29 ALT 19 Alkaline Phosphatase 163 H Total Protein 6.9 Albumin 3.5 Globulin 3.4 Albumin/Globulin Ratio 1.0 L Quality Measures Quality Measures VTE prophylaxis Advance care planning discussed with:: patient Assessment & Plan Assessment Current Active Medications: Generic Name Dose Route Start Last Admin Trade Name Freq PRN Reason Stop Dose Admin Acetaminophen 650 mg 08/30/25 11:56 08/30/25 12:21 Acetaminophen 325 Mg Tablet PO 09/29/25 11:55 650 mg Q6HR PRN Administration Fever > 100.4 Allopurinol 300 mg 08/30/25 09:00 09/03/25 08:56 Allopurinol 100 Mg Tablet PO 09/29/25 08:59 300 mg On Hold: 09/03/25 09:13 QDAY DRALENE Administration Apixaban 5 mg 08/30/25 09:00 09/03/25 08:58 Apixaban 2.5 Mg Tablet PO 09/29/25 08:59 5 mg BID DARLENE Administration Bumetanide 2 mg 09/03/25 09:00 09/03/25 08:55 Bumetanide Inj 0.25 Mg/Ml Vial 4 Ml IVP 10/03/25 08:59 2 mg DAILY DARLENE Administration Digoxin 0.125 mg 09/02/25 11:15 09/03/25 08:57 Digoxin 0.125 Mg Tablet PO 10/02/25 11:14 0.125 mg DAILY DARLENE Administration Diltiazem HCl 240 mg 08/30/25 09:00 09/03/25 08:57 Diltiazem Cd 120 Mg Capcr PO 09/29/25 08:59 240 mg QDAY DARLENE Administration Doxycycline Hyclate 100 mg 08/30/25 21:00 09/03/25 08:57 Doxycycline 100 Mg Tablet PO 09/06/25 20:59 100 mg BID DARLENE Administration Fluconazole 400 mg 08/31/25 15:45 09/03/25 08:56 Fluconazole 100 Mg Tablet PO 09/07/25 15:44 400 mg QDAY DARLENE Administration Piperacillin/Tazobactam/Dextrose 3.375 gm in 50 mls @ 12.5 mls/hr 08/30/25 22:00 09/03/25 14:43 Zosyn IV 09/06/25 21:59 12.5 mls/hr Q8HR DARLENE Administration Protocol Ipratropium [place] 0.5 mg 08/31/25 10:17 08/31/25 14:47 Ipratropium Rt 0.5 Mg/ 2.5 Ml Nebu INH 09/30/25 10:16 0.5 mg Q6HR PRN Administration SHORTNESS OF BREATH Levalbuterol HCl 1.25 mg 08/31/25 10:17 08/31/25 14:47 Levalbuterol Rt 1.25 Mg/0.5 Ml Nebu INH 09/30/25 10:16 1.25 mg Q8HR PRN Administration WHEEZING Metoprolol Tartrate 100 mg 08/30/25 09:00 09/03/25 08:58 Metoprolol Tartrate 25 Mg Tablet PO 09/29/25 08:59 100 mg BID DARLENE Administration Sennosides 1 tab 08/30/25 15:20 Senna/Docusate Sod 1 Tab Tablet PO 09/29/25 15:19 QDAY PRN CONSTIPATION Protocol Sodium Chloride 3 ml 08/31/25 07:12 Sodium Chloride Rt [place] 0.9% 3 Ml Nebu INH 09/30/25 07:11 PRN PRN SOLN Protocol Plan 65-year-old male with history of long standing hypertension, pacemaker implantation, atrial fibrillation, status post ablation of AV node. Has been on beta-blockers, metoprolol, diltiazem fo rate control and Eliquis for anticoagulation. Cardiology consulted for SOB, possible volume overload, HFrEF. 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 # Small right pleural effusion, parapneumonic effusion. # Mild pulmonary congestion with heart failure with reduced ejection fraction. # Hypertensive cardiovascular disease. # Atrial fibrillation, chronic. # Status post permanent pacemaker implantation. # Castleman disease, lymphoproliferative disorder undergoing extensive treatment at [facility] including immunosuppressive drugs therapy. Plan: Continue with Bumex 2mg daily starting tomorrow. He is having good urine output. U/s of chest is pending. Patient was not able to get thoracentesis for fluid removal. Oxygen requirements are mildly improving. He does not appear to be fluid overloaded on exam. Creatinine, diltiazem, Eliquis, metoprolol, spironolactone. Continue to monitor. Primary care team to manage above conditions and ongoing care needs. The patient's management plan was discussed with my attending physician Dr. Marquez. Naina Sher, PGY-2
[2025-09-04] VITALS (7 sets, daily range): BP systolic 100–117; BP diastolic 55–81; PULSE 73–111; RESP 16–22; TEMP 36.2–37; O2SAT 92–95
[2025-09-04] MEDS: PIPER/TAZO 3.375 GM PREMIX 3.375 GM/50 ML BAG IV (05:39)
[2025-09-04 06:23] LABS: Basophils # (Auto) 0.0 Thou/mm3 (0.0-0.2); Basophils % (Auto) 0 % (0-2.5); Eosinophils # (Auto) 0.1 Thou/mm3 (0.0-0.5); Eosinophils % (Auto) 1 % (0-10); Hematocrit 29.7 % (41.0-53.0); Hemoglobin 9.6 g/dL (13.5-16.0); Immature Granulocytes Auto 0.17 Thou/mm3 (0.00-0.00); Lymphocytes # (Auto) 1.2 Thou/mm3 (1.0-4.8); Lymphocytes % (Auto) 9 % (10-50); Mean Corpuscular HGB Conc 32.3 g/dl (31.0-37.0); Mean Corpuscular Hemoglobin 30.1 pg (25.0-35.0); Mean Corpuscular Volume 93 fL (80-100); Monocytes # (Auto) 0.7 Thou/mm3 (0.0-0.8); Monocytes % (Auto) 5 % (0-12); Neutrophils # (Auto) 12.1 Thou/mm3 (1.8-7.7); Neutrophils % (Auto) 85 % (37-80); Nucleated Red Blood Cell # 0.00 Thou/mm3 (0.00-0.00); Nucleated Red Blood Cell % 0 /100 WBC (0); Platelet Count 299 Thou/mm3 (140-440); RDW Standard Deviation 50.3 fL (35.1-43.9); Red Blood Count 3.19 Miln/mm3 (4.50-5.90); White Blood Count 14.3 Thou/mm3 (3.8-10.6)
[2025-09-04 06:57] LABS: Alanine Aminotransferase 21 U/L (10-49); Albumin, Serum 3.2 gm/dL (3.4-4.8); Albumin/Globulin Ratio 1.0 (1.2-2.2); Alkaline Phosphatase 159 U/L (46-116); Anion Gap 9 (7-16); Aspartate Amino Transferase 34 U/L (0-34); BUN/Creatinine Ratio 26 Ratio (12-20); Bilirubin,Total 0.7 mg/dL (0.3-1.2); Blood Urea Nitrogen 31 mg/dL (9-23); Calcium 8.5 mg/dL (8.3-10.6); Calcium (Corrected) 9.1 mg/dL (8.5-10.1); Carbon Dioxide 28.6 mMol/L (20.0-31.0); Chloride 99 mMol/L (98-107); Creatinine (Component) 1.2 mg/dL (0.6-1.3); Estimated Creatinine Clearance 77.4 mL/min (>60); Globulin 3.1 gm/dL (2.3-3.5); Glucose 124 mg/dL (74-106); Magnesium 2.1 mg/dL (1.6-2.6); Osmolality,Calculated 281 (275-295); Phosphorous 3.7 mg/dL (2.4-5.1); Potassium 4.5 mMol/L (3.4-5.1); Sodium 137 mMol/L (136-145); Total Protein 6.3 gm/dL (5.7-8.2); eGFR > 60 See Note
[2025-09-04] MEDS: METOPROLOL TARTRATE 25 MG TABLET 100 MG PO (08:36)
[2025-09-04] MEDS: FLUCONAZOLE 100 MG TABLET 400 MG PO (08:37)
[2025-09-04] MEDS: DOXYCYCLINE 100 MG TABLET PO (08:37)
[2025-09-04] MEDS: APIXABAN 2.5 MG TABLET 5 MG PO (08:38)
[2025-09-04] MEDS: DILTIAZEM CD 120 MG CAPCR 240 MG PO (08:38)
[2025-09-04] MEDS: ACETAMINOPHEN 325 MG TABLET 650 MG PO (08:38)
[2025-09-04] MEDS: BUMETANIDE INJ 0.25 MG/ML VIAL 4 ML 2 MG IVP (08:39)
[2025-09-04] MEDS: DIGOXIN 0.125 MG TABLET PO (08:39)
--- NOTE | 2025-09-04 10:47 | ESDS_ITS ---
<Statement entered by Mark Torrez MD - 09/04/25 15:22> Note reviewed and agree with care plan as documented. Please refer to the note below for further details. Plan discussed with attending physician Dr. Kendra Torrez MD PGY-2 Internal Medicine Planned Discharge Date 09/04/25 DS: Providers Provider Date of admission: 08/29/25 21:37 Primary care physician: Miki Broussard Admitting Provider: Helen Aiken MD Attending Provider on Admission: Helen Aiken MD Consults: 08/31/25 14:09 Consult to Cardiology Routine Comment: Consulting Provider: Kervin Marquez Attending Provider on DC: Miguel Angel Henry MD Discharging Provider: Miguel Angel Henry MD Anticipated date of discharge: 09/04/25 DS: Diagnosis Problem List Completed Was Problem List Reviewed/Reconciled?: Yes Hospital Course Hospital Course Hospital course: Summary Mr. Pena is a 65-year-old male with a history of persistent atrial fibrillation (on Eliquis, metoprolol, and diltiazem), sick sinus syndrome status post pacemaker placement (2006, with [address] Marquez), hypertension, heart failure with preserved ejection fraction (EF 55-60%), and Castleman syndrome. He presented to the ED on 08/29/25 with worsening shortness of breath over the past week, initially with exertional dyspnea that progressed to dyspnea at rest. He denied sick contacts, lower extremity edema, and orthopnea but reported chills and a cough with clear phlegm. He was unable to confirm a fever. The patient has not been taking rituximab and methotrexate for the last three months due to a perianal abscess, for which he has been receiving wound care; however, the wound care team has cleared him to resume these medications. Upon admission, he was treated with IV antibiotics for pneumonia confirmed by chest X-ray. Initial treatment included Azithromycin and Rocephin, but on 08/30/25, the regimen was switched to broader coverage with Zosyn 3.375 gm q8h and Doxycycline 100 mg BID, given his immunocompromised status. Blood cultures showed no growth after 48 hours, but sputum cultures were positive for Gram-positive cocci (GPC) and Gram-negative rods (GNR). His Coccidioides IgM antibody was positive, and he was started on fluconazole 400 mg daily. On examination, he had bilateral expiratory crackles and worsening shortness of breath, saturating 95% on 4-5 L of nasal cannula. An ultrasound for thoracentesis was ordered, but the radiologist deemed it unsafe. Following cardiology?s recommendation, the patient was started on Bumex 2 mg twice daily, which led to an improvement in his respiratory crackles and bilateral extremity edema, and he was able to maintain 95-96% saturation on 2-3 L of nasal cannula. Regarding his Castleman syndrome, I spoke with Dr. Moctezuma, who confirmed that the pulmonary metastatic nodules seen on CT were not new and that the team was already aware of them. The patient is scheduled for outpatient follow-up with his oncologist to confirm his Coccidioides IgG titer before resuming interleukin-6 inhibitor infusions for his cancer treatment.Throughout the hospital course patient other problems were managed and his condition improved remarkably with progression of hospital course. Further plan to discharge the patient home since he is stable and responded well to hospital treatment. Discharge recommendation: - Follow up with PCP in 1-2 weeks for f/u [facility] Coccidioides titers - Follow up with cigar tobacco processing supervisor Dr. Marquez in 1-2 weeks - Follow up with oncologist of Coccidioides titers update before resuming IL-6 inhibitors infusion - Prescribed fluconazole oral,daily. Stop when Coccidioides titers results is negative - Continue rest of medications as previously prescribed - Return to the ED or call EMS is symptoms return and/or worsen Hospital Diagnoses: #Acute hypoxic respiratory failure secondary to #Superimposed bacterial pneumonia, right base #Large right pleural effusion #Valley fever/coccidiomycosis #A-fib with RVR, chronic #Sinus Sick Syndrome S/p pacemaker placement #HFpEF EF 55-60% #Mild Congestive heart failure ( improving) #Castleman syndrome #CT finding bilateral metastatic pulmonary nodules #Hypertension #Acute normocytic anemia Patient assessed under supervision of attending physician and senior resident Dr. Torrez PGY-2 Elaine Gomez MD PGY-1, Internal Medicine Please note: this document was transcribed using voice recognition technology; minor inaccuracies may be present. Time Spent with Patient Time attestation: Total time spent providing and/or coordinating discharge services: Time spent: Greater than 30 minutes Exam Vital Signs Temp Pulse Resp BP Pulse Ox O2 Del Method O2 Flow Rate 97.2 F 111 H 17 107/55 L 95 Nasal Cannula 1 09/04/25 08:00 09/04/25 08:39 09/04/25 08:00 09/04/25 08:39 09/04/25 08:00 09/04/25 08:00 09/04/25 08:00 Narrative Exam General: Alert, no acute distress.Conversational and non-toxic appearing. Skin: Warm, dry, intact. No rash or ecchymoses. Head: Normocephalic, atraumatic. Eye: Normal conjunctiva, PERRL. Throat: Oral mucosa moist. No obvious lesions in oropharynx. Cardiovascular: Regular rate and rhythm, no murmur, +S1/S2. Respiratory: Lungs are clear to auscultation, respirations unlabored, no crackles, no wheezing. Gastrointestinal: Soft, nontender, non-distended. No guarding or rebound tenderness. Extremities: No edema, no cyanosis, no clubbing. Neuro: Alert and oriented x3.No focal deficits observed. Conversant, moving all extremities. No overt cerebellar signs/incoordination. Psychiatric: Cooperative, appropriate affect Discharge Plan Plan Patient Disposition: HOME (Self Care) Disposition Comment: With home oxygen Patient condition on transfer: Stable Care Plan Goals: - Follow up with PCP in 1-2 weeks for f/u [facility] Coccidioides titers - Follow up with cigar tobacco processing supervisor Dr. Marquez in 1-2 weeks - Follow up with oncologist of Coccidioides titers update before resuming IL-6 inhibitors infusion - Prescribed fluconazole oral,daily. Stop when Coccidioides titers results is negative - Continue rest of medications as previously prescribed - Return to the ED or call EMS is symptoms return and/or worsen Prescriptions/Referrals Prescriptions/Med Rec: New fluconazole 200 mg tablet 400 mg PO QDAY 30 Days Qty: 60 0RF Continued metoprolol tartrate 100 mg tablet 100 mg PO Q12H Patient Comments: TAKE 1 TABLET BY MOUTH TWICE DAILY WITH FOOD digoxin 125 mcg (0.125 mg) tablet 0.125 mg PO DAILY Patient Comments: TAKE 1 TABLET BY MOUTH ONCE DAILY FOR 90 DAYS bumetanide 1 mg tablet 1 mg PO QDAY 30 Days Qty: 30 1RF diltiazem HCl 240 mg capsule,extended release 24hr 240 mg PO QDAY Patient Comments: TAKE 1 CAPSULE BY MOUTH ONCE DAILY folic acid 1 mg tablet 1 mg PO QDAY Patient Comments: TAKE 1 TABLET BY MOUTH ONCE DAILY spironolactone 25 mg tablet 25 mg PO QDAY Patient Comments: TAKE 1 TABLET BY MOUTH ONCE DAILY Eliquis 5 mg Tablet 5 mg PO BID lisinopril 20 mg tablet 20 mg PO DAILY Patient Comments: TAKE 1 TABLET BY MOUTH ONCE DAILY Held methotrexate sodium 2.5 mg tablet 15 mg PO .Q WEEKLY Hold Instructions: Hold until you follow-up with your PCP/oncologist Patient Comments: TAKE 6 TABLETS BY MOUTH ONCE A WEEK ALL AT ONCE hydrocodone-acetaminophen 5-325 mg tablet 1 tab PO QDAY MDD 5mg hydrocodone Qty: 21 0RF Hold Instructions: Hold until you follow-up with your PCP Rx Instructions: We are currently holding his methotrexate and siltuximab for wound healing. Rebound pain is managed temporarily with norco. He cannot have NSAIDs d/t drug interactions. ondansetron 4 mg tablet,disintegrating 4 mg PO TID Hold Instructions: Hold until you follow-up with your PCP due to prolonged QTc hydrocodone-acetaminophen 5-325 mg tablet 1 tab PO BID MDD 10mg hydrocodone PRN (Reason: pain) Qty: 14 0RF Hold Instructions: Hold until you follow-up with your PCP Discontinued diltiazem HCl 240 mg capsule,extended release 24 hr 240 mg PO Q24H Patient Comments: TAKE 1 CAPSULE BY MOUTH ONCE DAILY allopurinol 300 mg tablet 300 mg PO DAILY Patient Comments: TAKE 1 TABLET BY MOUTH ONCE DAILY Referrals: Miki Broussard [Primary Care Provider] Patient/Caregiver Discharge Instructions Education Materials: Thoracentesis Dc Print Language: Iraqi Stand Alone Forms: Marivel Award Info., Patient Portal Info Letter Discharge Order Discharge Orders: Discharge (Routine); Ordered 09/04/25 Ordered By: Mark Alejandro Nhraheem Quality Discharge Quality Measures VTE prophylaxis Attestestation MD Attestation I have examined the patient, reviewed labs and imaging findings, discussed the case with the resident(s), and reviewed entered orders. I agree with the plan of care as outlined in this note. Time Spent: [address] Kendra MD
== END 2025-09-04 14:14 | disposition home or self-care (01) | DRG 193 ==
LOC: SERX 15:20 → SERHOLD 22:02 → S3NX 08-30 01:51
PROVIDERS: Nurse Practitioner Family; Registered Nurse General Practice; Student in an Organized Health Care Education/Training Program; Admitting Provider Student in an Organized Health Care Education/Training Program; Emergency Provider Family Medicine; PCP Internal Medicine; Visit Provider Student in an Organized Health Care Education/Training Program
DX: J15.9 Unspecified bacterial pneumonia (principal); J96.01 Acute respiratory failure with hypoxia; I48.19 Other persistent atrial fibrillation; I50.32 Chronic diastolic (congestive) heart failure; D47.Z2 Castleman disease; B38.0 Acute pulmonary coccidioidomycosis; K61.0 Anal abscess; D84.821 Immunodeficiency due to drugs; I11.0 Hypertensive heart disease with heart failure; Z95.0 Presence of cardiac pacemaker; D64.89 Other specified anemias; Z79.01 Long term (current) use of anticoagulants; Z79.899 Other long term (current) drug therapy; Z79.631 Long term (current) use of antimetabolite agent
CPT/HCPCS: 36415; 71045; 76999; 80053; 80061; 81001; 83605; 83615; 83690; 83735; 83880; 84100; 84145; 84484; 85025; 85610; 85730; 86635; 87040; 87081; 87205; 87502; 87811; 93005; 93225; 94640; 96360; 99285; J0131; J0456; J0696; J1200; J2405; J2543; J2765; J3475; J3490; J7030; J7050; J7120; J7611; J7612; A9270

== ENCOUNTER 2025-09-08 13:25 | Inpatient (IN) | payer MEDICARE, SELFPAY ==
[2025-09-08] VITALS (59 sets, daily range): BP systolic 73–122; BP diastolic 44–78; PULSE 88–116; RESP 10–30; TEMP 36.5–37.2; O2SAT 87–98; BMI 30.9
--- NOTE | 2025-09-08 13:48 | XR_ITS ---
EXAMINATION: AP chest single view TECHNIQUE: AP sitting portable chest single view Date and time: September 08, 2025, 1430 hours, comparison August 31, 2025 INDICATIONS: Shortness of breath today. FINDINGS: Mild enlargement cardiac contour with prominent vascular congestion Bibasilar pneumonia and/or edema with large bilateral pleural effusions Cardiac lead satisfactory position IMPRESSION: Bibasilar pneumonia and or edema with large bilateral pleural effusions
--- NOTE | 2025-09-08 13:48 | EKG_ITS ---
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
--- NOTE | 2025-09-08 13:54 | EDNOTE_ITS ---
<Statement entered by Laura Camarena MD - 09/09/25 17:48> As co-signing physician, I was present and available for consult prn. I concur with the plan and care as documented by the midlevel provider. ED General RME/HPI General Chief complaint: Shortness of Breath/Dyspnea Stated complaint: DIFFICULTY BREATHING Time Seen by Provider: 09/08/25 13:30 Arrival date/time: 09/08/25 13:25 CC: Shortness of breath HPI ongoing for the past week since discharge from this facility with progressive increase in severity now the patient with just sitting up become shortness of breath. Patient has a history of Castleman syndrome persistent A-fib he is on Eliquis, sick sinus syndrome with pacemaker placement in 2006 hypertension heart failure with ejection fraction of 55 to 60%. Patient was recently discharged from here with pneumonia and pleural effusion that was deemed unsafe for tapping. Upon initial assessment patient's oxygen saturations were 72% on room air. After being placed on 6 L facemask the patient's oxygen saturations have improved to 90 to 93%. Patient continues to be mildly tachypneic absent breath sounds in the left base. Related Data Home Medications ?Medication ?Instructions ?Recorded ?Confirmed apixaban 5 mg tablet (Eliquis) 5 mg PO BID 12/12/23 lisinopril 20 mg tablet 20 mg PO DAILY 03/16/2503/19 digoxin 125 mcg (0.125 mg) tablet 0.125 mg PO DAILY 08/30/25 methotrexate sodium 2.5 mg tablet 15 mg PO .Q WEEKLY 0 05/26/25 08/30/25 Held on 09/03/25. Instructions: Hold until you follow-up with your PCP/oncologist metoprolol tartrate 100 mg tablet 100 mg PO Q12H 05/2608/30/25 diltiazem HCl 240 mg 240 mg PO QDAY 08/30/2503/19 capsule,extended release 24 hr folic acid 1 mg tablet 1 mg PO QDAY 08/30/25 ondansetron 4 mg disintegrating 4 mg PO TID 08/30/25 1 10/31/24 tablet Held on 09/03/25. Instructions: Hold until you follow-up with your PCP due to prolonged QTc spironolactone 25 mg tablet 25 mg PO QDAY 08/30/2503/19 Previous Rx's ?Medication ?Instructions ?Recorded bumetanide 1 mg tablet 1 mg PO QDAY 1 month #30 tab s 05/30/25 hydrocodone 5 mg-acetaminophen 325 1 tab PO BID PRN pa in #14 tabs 07/08/25 mg tablet Held on 09/03/25. Instructions: Hold until you follow-up with your PCP hydrocodone 5 mg-acetaminophen 325 1 tab PO QDAY #21 t abs 07/29/25 mg tablet Held on 09/03/25. Instructions: Hold until you follow-up with your PCP fluconazole 200 mg tablet 400 mg (2 x 200 mg) PO QDAY 30 09/03/25 days #60 tabs Allergies Allergy/AdvReac Type Severity Reaction Status Date / Time No Known Allergies Allergy Verified 09/08/25 13:28 Review of Systems Review of Systems Narrative Review of Systems: GEN: No fever, no chills, no weight loss EYES: No discharge, no visual changes, no pain HEENT: No ear pain, no congestion, no sore throat PULM: + shortness of breath, no cough, no congestion CV: No chest pain, no dyspnea on exertion, no palpitations GI: No nausea, no vomiting, no diarrhea, no pain, no constipation : No frequency, no urgency, no dysuria MUSC/SKEL: No joint pain, no back pain SKIN: No rash PSYCH: No hallucinations, no depression HEME/LYMPH: No easy bleeding or bruising tendencies NEURO: No weakness, no headache Past Medical History Past Medical History NEUROLOGIC: Negative Neurological Disorders or Seizures CARDIAC: Positive Cardiac Disorders, Cardiac Arrhythmia, Atrial Fibrillation, Congestive Heart Failure, Congenital Heart Disease, Edema and Hypertension RESPIRATORY: Positive Bronchitis and Pneumonia; Negative Chronic Obstructive Pulmonary Disease (COPD) or Asthma GASTROINTESTINAL: Negative Gastrointestinal Disorders GENITOURINARY: Negative Genitourinary Disorders or Renal Disease MUSCULOSKELETAL: Positive Musculoskeletal Disorders, Arthritis and Osteoporosis ENDOCRINE: Negative Endocrine Disorders, Diabetes Mellitus Type 1 or Diabetes Mellitus Type 2 HEMATOLOGIC: Negative Blood Disorders or Sickle Cell Disease OTHER HISTORY: Positive Chicken Pox, Measles and Mumps; Negative Hospitalization, Autoimmune Disease, Shingles, Falls, Blood T ransfusions, Blood Transfusion Reaction, Anesthesia Reactions, Organ Transplant, MRSA or Cancer Family History FAMILY HISTORY: Positive Family Cardiac Disorders; Negative Family Psychiatric Problems, Family Respiratory Disorders, Family Gastrointestinal Problems, Family Cancer or Family Anesthesia Reaction Surgical History SURGICAL: Positive Pacemaker and Joint Replacement; Negative Neurologic Surgery or Organ Transplant Social History SMOKING STATUS: Never smoker SUBSTANCE USE: does not use ED Exam Narrative Physical exam: [General: Obese in moderate discomfort but not in any acute distress Head normocephalic HEENT: Within acceptable limits Neck is supple nontender Chest equal chest rise nontender to palpation Respiratory: Absent breath sounds in the left base, subtle end expiratory crackles in the right base and right upper lobe. CV: Rate rhythm is regular no murmurs rubs or clicks Abdomen is distended secondary to body habitus soft nontender no masses positive bowel sounds all 4 quadrants Back: No CVA tenderness no spinous process tenderness from cervical spine thoracic and lumbar spine Skin: Intact no petechiae rash induration ulceration or crepitus. Lower extremities are mildly mottled. Extremities: Moving all extremity against resistance cap refill less than 2 seconds neurosensory intact. No lower extremity edema. Neuro: Awake alert oriented x3 Glascow coma 15 no focal deficits] Course Course Course Narrative: Laboratory results showed leukocytosis, with VIOLETA BUN of 65 creatinine 3.2. Chest x-ray shows large pleural effusions and pneumonia. Patient is now on 10 L simple mask to maintain sats greater than 9394%. The patient has no fever heart rate is at 100 respiratory rate in the 20s. Patient's case and clinical findings x-ray and laboratory results discussed with resident for Dr. Reynolds who agrees to except the patient for admission. Quality Measures none Orders Category Date Time Status COVID-19 Screening Questionnaire NOW Care 09/08/25 15:43 Active Decision to Admit X1 Care 09/08/25 15:43 Completed EKG (ED ONLY) *Do not use* NOW Care 09/08/25 13:48 Completed EKG (ED Only) Stat Exams 09/08/25 13:48 Draft XR chest 1V Stat Exams 09/08/25 13:48 Completed B-Type Natriuretic Peptide Stat Lab 09/08/25 14:10 Completed CBC Stat Lab 09/08/25 14:10 Completed Comprehensive Metabolic Panel Stat Lab 09/08/25 14:10 Completed Drug Screen,Urine Stat Lab 09/08/25 16:20 Completed LDH (Lactate Dehydrogenase) Stat Lab 09/08/25 14:10 Completed Magnesium Stat Lab 09/08/25 14:10 Completed Partial Thromboplastin Time Stat Lab 09/08/25 14:10 Completed Prothrombin Time with INR Stat Lab 09/08/25 14:10 Completed Troponin I Stat Lab 09/08/25 14:10 Completed Urinalysis, C/S if Indicated Stat Lab 09/08/25 16:20 Completed Bumetanide Inj [Bumex Inj] Med 09/08/25 13:59 Discontinued 1 mg IVP X1 ONE Piper/Tazo 3.375 gm Premix [Zosyn] Med 09/08/25 15:37 Discontinued 3.375 gm in 50 ml IV X1 Vital Signs Vital signs: Vital Signs Temperature 97.7 F 09/08/25 13:31 Pulse Rate 98 09/08/25 13:31 Respiratory Rate 20 09/08/25 13:31 Blood Pressure 90/63 09/08/25 13:31 Pulse Oximetry (%) 95 09/08/25 13:31 Oxygen Delivery Method Oxy Mask 09/08/25 13:31 Oxygen Flow Rate 6 09/08/25 13:31 Discharge Plan Plan Patient Disposition: Other Care w/in Hosp (SDC/ASHA) Patient condition on transfer: Stable Problem List Clinical Impression: Pneumonia, Pleural effusion, Shortness of breath, VIOLETA (acute kidney injury), Hypoxia PA/LAST REPAIRER Supervising Physician PA/LAST REPAIRER Supervising Physician: Justyn Shore ENP [facility] Clinical Information Provided by: patient Medical Records reviewed [facility] Meds/Rx considered, not ordered None Labs/Rad/Tests considered, not ordered None Chronic Illness/Social Conditions Explain: Castleman syndrome A-fib sick sinus syndrome pacemaker placement 2006 with 3 replacement since then. Hypertension heart failure. EKG Interpretation EKG #1: EKG Interpretation: EKG performed at 1401 shows a ventricular rate of 83 QRS of 94 QTc of 370 this is A-fib. Labs Labs: interpreted by [facility] Lab(s) Interpretation(s): CBC shows 17,000 white count H&H of 10 and 31 platelets at 489. Coags show PT of 12.4 INR PTT within excepted minutes CMP shows a BUN of 65 creatinine of 3.2 glucose of 113 no other electrolyte imbalances AST 54 alk phos at 211 ALT at 40 T. bili at 0.4. Troponin and BNP unremarkable Imaging Imaging interpretation: interpreted by [facility] Imaging Interpretation(s): Bibasilar pneumonia with large pleural effusions. Medication Administration(s) Medication Administration History Acetaminophen (Acetaminophen 325 Mg Tablet) 650 mg PO Q6H PRN PRN Reason: Fever >101.5 Stop: 10/08/25 17:07 Apixaban (Apixaban 2.5 Mg Tablet) 5 mg PO BID [facility] Stop: 10/08/25 20:59 Bumetanide (Bumetanide Inj 0.25 Mg/Ml Vial 4 Ml) 1 mg IVP QDAY [facility] Stop: 10/09/25 08:59 Diltiazem HCl (Diltiazem Cd 120 Mg Capcr) 240 mg PO QDAY [facility] Stop: 10/09/25 08:59 Doxycycline Hyclate (Doxycycline 100 Mg Tablet) 100 mg PO BID [facility] Stop: 09/15/25 20:59 Fluconazole (Fluconazole 100 Mg Tablet) 400 mg PO QDAY [facility] Stop: 09/16/25 08:59 Guaifenesin/Dextromethorphan (Guaifenesin/Dm Tablet) 1 each PO BID PRN PRN Reason: COUGH Stop: 10/08/25 17:58 Piperacillin/Tazobactam/Dextrose (Zosyn) 3.375 gm in 50 mls @ 100 mls/hr IV Q8HR [facility]; Protocol Stop: 09/15/25 17:11 Last Admin: 09/08/25 17:58 Dose: Not Given Documented By: VG Non-Admin Reason: Duplicate Medication on eMAR Comments: SKIP PER PROVIDER Ipratropium Hannah (Ipratropium Rt 0.5 Mg/ 2.5 Ml Nebu) 0.5 mg INH Q8HRRT [facility] Stop: 10/08/25 22:59 Levalbuterol HCl (Levalbuterol Rt 1.25 Mg/0.5 Ml Nebu) 1.25 mg INH Q8HRRT [facility] Stop: 10/08/25 22:59 Metoprolol Tartrate (Metoprolol Tartrate 25 Mg Tablet) 100 mg PO QDAY [facility] Stop: 10/09/25 08:59 Midodrine (Midodrine 2.5 Mg Tablet) 2.5 mg PO TID PRN PRN Reason: SBP<90 and MAP<65 Stop: 10/08/25 18:17 Last Admin: 09/08/25 19:29 Dose: 2.5 mg Documented By: CB Sodium Chloride (Sodium Chloride Rt Dominique 0.9% 3 Ml Nebu) 3 ml INH PRN PRN PRN Reason: SOLN Stop: 10/08/25 17:50 Discontinued Medications Albuterol/Ipratropium (Albuterol/Ipratropium (Duoneb) Rt Dominique 3 Ml Nebu) 3 ml INH Q4HRRT [facility] Stop: 10/08/25 18:59 Bumetanide (Bumetanide Inj 0.25 Mg/Ml Vial 4 Ml) 1 mg IVP X1 ONE Stop: 09/08/25 14:00 Last Admin: 09/08/25 14:32 Dose: 1 mg Documented By: JOE Piperacillin/Tazobactam/Dextrose (Zosyn) 3.375 gm in 50 mls @ 100 mls/hr IV X1 ONE; Protocol Stop: 09/08/25 16:06 Last Infusion: 09/08/25 17:58 Dose: Infused Documented By: Admin: 09/08/25 16:45 Dose: 100 mls/hr Documented By: SUZANNE Lactated Ringer's (Lactated Ringers) 250 mls @ 999 mls/hr IV .Q16M ONE Stop: 09/08/25 20:01 Last Infusion: 09/08/25 20:16 Dose: Infused Documented By: Admin: 09/08/25 19:59 Dose: 999 mls/hr Documented By: SADAF Midodrine (Midodrine 2.5 Mg Tablet) 2.5 mg PO TID ONE Stop: 09/08/25 18:18 Last Admin: 09/08/25 20:11 Dose: Not Given Documented By: SADAF Non-Admin Reason: Cancelled by Provider Midodrine (Midodrine 5 Mg Tablet) 5 mg PO X1 ONE Stop: 09/08/25 19:47 Last Admin: 09/08/25 20:13 Dose: Not Given Documented By: SADAF Non-Admin Reason: Cancelled by Provider Midodrine (Midodrine 2.5 Mg Tablet) 2.5 mg PO X1 ONE Stop: 09/08/25 20:01 Last Admin: 09/08/25 20:13 Dose: Not Given Documented By: SADAF Non-Admin Reason: Cancelled by Provider Midodrine (Midodrine 5 Mg Tablet) 10 mg PO X1 ONE Stop: 09/08/25 20:03 Last Admin: 09/08/25 20:08 Dose: 10 mg Documented By: SADAF Comments: DR. NIELSEN/ CAL Sodium Chloride (Sodium Chloride Rt 10% 15 Ml Nebu) 5 ml INH X1 ONE Stop: 09/08/25 18:03
[2025-09-08] MEDS: BUMETANIDE INJ 0.25 MG/ML VIAL 4 ML 1 MG IVP (14:32)
[2025-09-08 14:54] LABS: Basophils # (Auto) 0.1 Thou/mm3 (0.0-0.2); Basophils % (Auto) 0 % (0-2.5); Eosinophils # (Auto) 0.1 Thou/mm3 (0.0-0.5); Eosinophils % (Auto) 1 % (0-10); Hematocrit 31.2 % (41.0-53.0); Hemoglobin 10.0 g/dL (13.5-16.0); Immature Granulocytes Auto 0.27 Thou/mm3 (0.00-0.00); Lymphocytes # (Auto) 1.7 Thou/mm3 (1.0-4.8); Lymphocytes % (Auto) 10 % (10-50); Mean Corpuscular HGB Conc 32.1 g/dl (31.0-37.0); Mean Corpuscular Hemoglobin 29.8 pg (25.0-35.0); Mean Corpuscular Volume 93 fL (80-100); Monocytes # (Auto) 1.0 Thou/mm3 (0.0-0.8); Monocytes % (Auto) 5 % (0-12); Neutrophils # (Auto) 14.5 Thou/mm3 (1.8-7.7); Neutrophils % (Auto) 83 % (37-80); Nucleated Red Blood Cell # 0.00 Thou/mm3 (0.00-0.00); Nucleated Red Blood Cell % 0 /100 WBC (0); Platelet Count 489 Thou/mm3 (140-440); RDW Standard Deviation 52.5 fL (35.1-43.9); Red Blood Count 3.36 Miln/mm3 (4.50-5.90); White Blood Count 17.6 Thou/mm3 (3.8-10.6)
[2025-09-08 15:00] LABS: INR 1.2 (0.9-1.3); Partial Thromboplastin Time 29.3 Seconds (22.0-36.0); Prothrombin Time 12.4 Seconds (9.0-12.2)
[2025-09-08 15:10] LABS: Alanine Aminotransferase 40 U/L (10-49); Albumin, Serum 3.4 gm/dL (3.4-4.8); Albumin/Globulin Ratio 0.8 (1.2-2.2); Alkaline Phosphatase 211 U/L (46-116); Anion Gap 12 (7-16); Aspartate Amino Transferase 54 U/L (0-34); BUN/Creatinine Ratio 20 Ratio (12-20); Bilirubin,Total 0.4 mg/dL (0.3-1.2); Blood Urea Nitrogen 65 mg/dL (9-23); Calcium 8.6 mg/dL (8.3-10.6); Calcium (Corrected) 9.1 mg/dL (8.5-10.1); Carbon Dioxide 25.4 mMol/L (20.0-31.0); Chloride 99 mMol/L (98-107); Creatinine (Component) 3.2 mg/dL (0.6-1.3); Estimated Creatinine Clearance 28.7 mL/min (>60); Globulin 4.4 gm/dL (2.3-3.5); Glucose 113 mg/dL (74-106); LDH (Lactate Dehydrogenase) 342 U/L (120-246); Magnesium 2.4 mg/dL (1.6-2.6); Osmolality,Calculated 291 (275-295); Potassium 5.1 mMol/L (3.4-5.1); Sodium 136 mMol/L (136-145); Total Protein 7.8 gm/dL (5.7-8.2); Troponin I < 0.020 ng/mL (0.0-0.045); eGFR 20 See Note
[2025-09-08 15:21] LABS: B-Type Natriuretic Peptide 82 pg/mL (0-100)
[2025-09-08 16:37] LABS: Collection Type, Urine Clean Catch
[2025-09-08] MEDS: PIPER/TAZO 3.375 GM PREMIX 3.375 GM/50 ML BAG IV ×2 (16:45→22:57)
[2025-09-08 17:02] LABS: Amphetamine/Methamp Scrn,U Negative (Negative); Barbiturate Screen,Urine Negative (Negative); Benzodiazepines Screen,Urine Negative (Negative); Benzoylecgonine Screen, Ur Negative (Negative); Fentanyl Screen,Urine Negative (Negative); Opiate Screen,Urine Negative (Negative); THC Screen,Urine Positive (Negative)
[2025-09-08 17:16] LABS: Bilirubin,Urine Negative (Negative); Blood,Urine Negative (Negative); Color,Urine Yellow (Lt Yel-Yel); Culture Indicated,Urine Not Indicated; Glucose, Urine Negative (Negative); Granular Casts,Urine 1 /hpf (0-1); Hyaline Casts,Urine 2 /hpf (0-1); Ketones,Urine Negative (Negative); Leukocyte Esterase,Urine Negative (Negative); Nitrite,Urine Negative (Negative); PH,Urine 5.5 (5.0-7.0); Protein,Urine Trace (Neg - Trace); RBC,Urine < 1 /hpf (0-3); Specific Gravity,Urine 1.017 (1.001-1.035); Squamous Epithelial Cell,Urine 3 /hpf (0-5); Urobilinogen,Urine Negative mg/dL (0.0-1.0); WBC,Urine 3 /hpf (0-5)
[2025-09-08 17:21] LABS: Clarity,Urine Hazy (Clear/Hazy)
--- NOTE | 2025-09-08 17:27 | ESHP_ITS ---
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 Recently discharged on 09/04 after being admitted for the same. During hospitalization patient was treated with aggressive diuresis and oxygen requirements improved, though patient was discharged on home oxygen. Attempted pleural drainage but there was no safe site for thoracentesis. Since being discharged, patient states that his shortness of breath had progressed and thus presented to the ED. Initial vitals showed BP 90/63 and saturating in the 70s on room air and transition to oxy mask 6 L and saturating 95%. CBC showed leukocytosis of 17.6 and stable hemoglobin with thrombocytosis of 489. CHEM panel showed BUN of 65 and creatinine of 3.2 (baseline 0.8-1.0) and slightly elevated alk phos but normal troponin and BNP. CXR showing bibasilar pneumonia/edema with large bilateral pleural effusions. EKG showing atrial fibrillation with pulse of 87. BP noted to be soft and started on renally dosed midodrine. In ED was given Bumex 1 mg IV x 1, Zosyn x 1. Due to blood pressures being soft with started on renally dosed midodrine 2.5 mg. Started on Zosyn and doxycycline, ordered ultrasound-guided thoracentesis with fluid studies. Cardiology consulted and recommended holding Lasix and lisinopril given VIOLETA to resume home diltiazem 240 mg and metoprolol tartrate 100 mg twice daily for rate control. ----- Note reviewed and agree with care plan as documented. Please refer to the note below for further details. Plan discussed with attending physician Dr. Kendra Torrez MD PGY-2 Internal Medicine Documentation for date of: 09/08/25 HPI History of Present Illness History of present illness: Mr. Pena is 65-year-old _male with past medical history of A-fib, status post pacemaker placement (2006, with [address] 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 The patient was recently discharged following treatment for superimposed pneumonia and a right-sided pleural effusion, with a positive Coccidioides IgM antibody. The patient was advised to follow up with their PCP for further evaluation of Coccidioides IgG and to resume infusions for management once the results were available. However, the patient reported that the PCP was unable to obtain IgG levels. The patient has continued to experience shortness of breath over the past few days. He noted that at home, his oxygen saturation was in the 80s while on 3 L of nasal cannula, and he was unaware that he could increase the flow rate. Per ED provider , the patient was saturating in the 70s on room air, but after being placed on 6 L via a facemask, his oxygen saturation improved to 90-93% and remains mildly tachypneic. The patient reports worsening dyspnea, which is associated with a cough productive of clear sputum. He denies fever, chills, abdominal pain, chest pain, and palpitations and any recent sick contacts. ED Course: -Initial vitals were BP 90/63, pulse 111, RR 20, temp 97.0, O2 sat 95% on 6 L OxiMax -Labs significant for WBC 17.6, hemoglobin 10, hematocrit 31.2, platelet count 489K.CHEM Panel, BUN 65, creatinine 3.2, eGFR 20, AST 54, alkaline phosphatase 211, lactate dehydrogenase 342. Troponin negative, BNP 82. UA was negative. U tox positive for THC -Imaging included chest x-ray bibasilar pneumonia/or edema large bilateral pleural effusion. Mild enlargement cardiac contour with prominent vascular congestion. EKG sinus rhythm with nonspecific T wave abnormalities -In the ED, patient was given Bumex 1gm x 1 and Zosyn 3.375gm. -Patient was admitted for [facility] evaluation and management. Review of Systems Review of systems otherwise negative except what is mentioned above. Past Medical History: Mention above Family History: Noncontributory Surgical History: Pacemaker, knee replacement Social History: Social drinker, THC for nausea, denies recreational drug use Current Medications: - fluconazole 200 mg tablet - metoprolol tartrate 100 mg tablet - digoxin 125 mcg (0.125 mg) tablet - bumetanide 1 mg tablet - diltiazem HCl 240 mg capsule,extended release 24hr - folic acid 1 mg tablet - spironolactone 25 mg tablet - Eliquis 5 mg Tablet - lisinopril 20 mg tablet Allergies: No known drug allergies Exam Vital Signs Temp Pulse Resp BP Pulse Ox O2 Del Method O2 Flow Rate 97.9 F 93 19 104/65 96 Oxy Mask 6 09/08/25 16:09 09/08/25 16:09 09/08/25 16:09 09/08/25 16:09 09/08/25 16:09 09/08/25 16:09 09/08/25 16:09 Narrative Exam General: Alert, moderate respiratory distress on 10L oxymask Skin: Warm, dry, intact. No rash or ecchymoses. Head: Normocephalic, atraumatic. Eye: Normal conjunctiva, PERRL. Throat: Oral mucosa moist. No obvious lesions in oropharynx. Cardiovascular: Regular rate and rhythm, no murmur, +S1/S2. Respiratory: Absent breath sounds in the left base, subtle end expiratory crackles in the right base and right upper lobe. No wheezing. Gastrointestinal: Soft, nontender, non-distended. No guarding or rebound tenderness. Extremities: No edema, no cyanosis, no clubbing. Neuro: Alert and oriented x3.No focal deficits observed. Conversant, moving all extremities. No overt cerebellar signs/incoordination. Psychiatric: Cooperative, appropriate affect Results: Labs 09/11/25 04:29 09/11/25 04:29 Labs: Short CBC 09/08/25 Range/Units 14:10 WBC 17.6 H (3.8-10.6) Thou/mm3 Hgb 10.0 L (13.5-16.0) g/dL Hct 31.2 L (41.0-53.0) % Plt Count 489 H D (140-440) Thou/mm3 BMP 09/08/25 14:10 Sodium 136 Potassium 5.1 Chloride 99 Carbon Dioxide 25.4 BUN 65 H Creatinine 3.2 H D Glucose 113 H Calcium 8.6 Cardiac Enzymes 09/08/25 Range/Units 14:10 Troponin I < 0.020 (0.0-0.045) ng/mL Liver Function 09/08/25 Range/Units 14:10 Total Bilirubin 0.4 (0.3-1.2) mg/dL AST 54 H (0-34) U/L ALT 40 (10-49) U/L Alkaline Phosphatase 211 H (46-116) U/L Albumin 3.4 (3.4-4.8) gm/dL Urine 09/08/25 Range/Units 16:20 Urine Color Yellow (Lt Yel-Yel) Urine Clarity Hazy (Clear/Hazy) Urine pH 5.5 (5.0-7.0) Ur Specific [place] 1.017 (1.001-1.035) Urine Protein Trace (Neg - Trace) Urine Glucose (UA) Negative (Negative) Quality Measures Quality Measures VTE prophylaxis Advance care planning discussed with:: patient Medications Home Medications and Allergies Home Medications ?Medication ?Instructions ?Recorded ?Confirmed ?Type apixaban 5 mg tablet (Eliquis) 5 mg PO BID 12/12/23 History lisinopril 20 mg tablet 20 mg PO DAILY 03/16/2503/19 History digoxin 125 mcg (0.125 mg) tablet 0.125 mg PO DAILY 08/30/25 History methotrexate sodium 2.5 mg tablet 15 mg PO .Q WEEKLY 0 05/26/25 08/30/25 History Held on 09/03/25. Instructions: Hold until you follow-up with your PCP/oncologist metoprolol tartrate 100 mg tablet 100 mg PO Q12H 05/2608/30/25 History diltiazem HCl 240 mg 240 mg PO QDAY 08/30/2503/19 History capsule,extended release 24 hr folic acid 1 mg tablet 1 mg PO QDAY 08/30/25 History ondansetron 4 mg disintegrating 4 mg PO TID 08/30/25 1 10/31/24 History tablet Held on 09/03/25. Instructions: Hold until you follow-up with your PCP due to prolonged QTc spironolactone 25 mg tablet 25 mg PO QDAY 08/30/2503/19 History Allergies Allergy/AdvReac Type Severity Reaction Status Date / Time No Known Allergies Allergy Verified 09/08/25 13:28 Visit Medications Acetaminophen (Acetaminophen 325 Mg Tablet) 650 mg PO Q6H PRN PRN Reason: Fever >101.5 Stop: 10/08/25 17:07 Albuterol/Ipratropium (Albuterol/Ipratropium (Duoneb) Rt Dominique 3 Ml Nebu) 3 ml INH Q4HRRT DARLENE Stop: 10/08/25 18:59 Apixaban (Apixaban 2.5 Mg Tablet) 5 mg PO BID DARLENE Stop: 10/08/25 20:59 Bumetanide (Bumetanide Inj 0.25 Mg/Ml Vial 4 Ml) 1 mg IVP QDAY DARLENE Stop: 10/09/25 08:59 Doxycycline Hyclate (Doxycycline 100 Mg Tablet) 100 mg PO BID DARLENE Stop: 09/15/25 20:59 Piperacillin/Tazobactam/Dextrose (Zosyn) 3.375 gm in 50 mls @ 100 mls/hr IV Q8HR DARLENE; Protocol Stop: 09/15/25 17:11 Discontinued Medications Bumetanide (Bumetanide Inj 0.25 Mg/Ml Vial 4 Ml) 1 mg IVP X1 ONE Stop: 09/08/25 14:00 Last Admin: 09/08/25 14:32 Dose: 1 mg Piperacillin/Tazobactam/Dextrose (Zosyn) 3.375 gm in 50 mls @ 100 mls/hr IV X1 ONE; Protocol Stop: 09/08/25 16:06 Last Admin: 09/08/25 16:45 Dose: 100 mls/hr Assessment & Plan Plan Mr. Pena is 65-year-old _male with past medical history of A-fib, status post pacemaker placement (2006, with [address] 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 Admitted for acute hypoxic respiratory failure secondary to pleural effusion. 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 Denies fever, chills, recent sick contact. Patient worsening dypnea likely due to bilateral pleural effusion. Patient work of breathing will likely improve after getting therapeutic thoracentesis. -Chest x-ray showed chest x-ray bibasilar pneumonia/or edema large bilateral pleural effusion. Mild enlargement cardiac contour with prominent vascular congestion. -Influenza A and B negative -PSI/PORT score 137 points- Risk Class V (high risk) , 27.0-29.2% mortality.? - WBC 17.6, Plan - Doxycycline 100 mg p.o. twice daily (09/08- - Zosyn 3.375 burn (09/08- - Fluconazole 400 mg twice daily - MRSA screen - Levalbuterol 1.25 mg Q8HRRT+ ipratropium bromide 0.5 mg [id number] - Guaifenesin 1 tab p.o. twice daily as needed - Held bumex - Sputum culture, pending - Blood culture, pending - Oxygen delivery as needed - Ultrasound thoracentesis #Acute kidney injury Patient with VIOLETA is likely prerenal from overdiuresis. - BUN 65, creatinine 3.2, eGFR 20, Plan - Ultrasound renal bilateral, ordered - Urine creatinine random, urine electrolytes, urine nitrogen - Avoid nephrotoxins - Monitor renal panel -Renally dosed medications -Hold any FAUSTO/ARB/diuretics - Nephrology Primary consulted, pending recommendation #Castleman syndrome #Coagulopathy #CT finding bilateral metastatic pulmonary nodules lymphoproliferative disorder undergoing extensive treatment at [facility] including immunosuppressive drugs therapy.Oncology team aware the patient?s valley fever titer results. As the patient is unable to resume the IL-6 inhibitor infusion due to the positive valley fever/coccidioidomycosis result. - 03/15/25 Chest CTA - extensive mediastinal lymphadenopathy, including anterior mediastinum, aortopulmonary window, high left periaortic, tracheobronchial and subcarinal as well as adjacent to the descending thoracic aorta, bilateral subcentimeter pulmonary nodules - 05/25/25 Chest CTA - Extensive tumor mediastinal lymphadenopathy and biilateral metastatic pulmonary nodules. At least 10 subcentimeter metastatic pulmonary nodules - AST 54, alkaline phosphatase 211, lactate dehydrogenase 342. Elevated inflammatory markers due to systemic inflammation related to immune evaluation from not receiving IV transfusion for Castleman syndrome. - PT 12.4,plt 489, Absolute neutrophil 83, Teller 1, immature granulocyte 2% Plan - Follow-up oncologist outpatient - Follow-up coccidioidomycosis result with DEBBI FORD #Hypertension Patient has a history of hypertension which he takes lisinopril at home. BP on admission is 90/63 downtrending to 85/61 Plan - Hold antihypertensive due to soft BP - Midodrine 2.5 mg p.o. 3 times daily as needed for SBP less than 90 and MAP present 65 #Atrial fibrillation, rate controlled, chronic #Sick sinus syndrome s/p pacemaker placement EKG is paced sinus rhythm Pt has pacemaker placed in 2006 which has been replaced [address] Marquez CHADsVAS score 4 -?6.7% risk of stroke/TIA/systemic embolism HAS BLED score 2 Plan - Metoprolol tartrate 100 mg every 12 hours - Eliquis 5 mg p.o. twice daily - Diltiazem 240 mg p.o. daily - Resume Digoxin 0.125 mg po daily when levels return - Cardiology consulted - Keep K > 4 and Mg > 2 #HFpEF EF 55-60% Echo on 03/17/2025 showed EF 55-60%. Diastolic function difficult to evaluate due to A-fib. Severe biatrial dilation. Plan - -Strict ins and outs #Normocytic anemia, chronic On admission Hgb10 and HCT 31.2 with MCV 93 - Daily CBC -Type and screen, and transfuse hemoglobin less than 7 Hospital management: Lines: peripheral IV Diet: cardiac DVT prophylaxis: Eliquis 5mg Disposition: Tele for AHRF 2/2PNA and Pleural effsuion CODE STATUS: Full code Patient plan of care was discussed with the attending physician, Dr. Gardner & senior resident Dr. Javon Gomez MD PGY-1 Attending Provider Attestation/Addendum I have examined the patient, reviewed labs and imaging findings, discussed the case with the resident(s), and reviewed entered orders. I agree with the plan of care as outlined in this note, with these additional summaries/recommendations: After examination of the patient and review of the clinical data, I feel that this patient needs admission to the hospital for further treatment and evaluation. Dr. Kendra MD
--- NOTE | 2025-09-08 18:36 | XR_ITS ---
Examination: Retroperitoneal ultrasound, complete Technique: Multiple high resolution grayscale images of the retroperitoneum obtained, including kidneys and bladder. Exam date and time: September 08, 2025, 2056 hours INDICATIONS: Acute renal insufficiency today FINDINGS: Right kidney 9.8 cm renal cortex 1.6 cm Left kidney 12.5 cm renal cortex 1.5 cm Mild renal scar formation Bladder prevoid volume 95 cc no bladder mass Negative for prostatomegaly no prostate nodules IMPRESSION: Small right kidney Bilateral renal cortical thinning Mild bilateral renal scar formation No hydronephrosis
[2025-09-08] MEDS: MIDODRINE 2.5 MG TABLET PO (19:29)
[2025-09-08 19:46] LABS: Chloride,Urine Random 23.9 mMol/L (55.0-125.0); Creatinine,Random Urine 152 mg/dL (30-125); Potassium,Urine Random 43 mMol/L (12-62); Sodium,Urine Random 49.1 mMol/L (20.0-110.0); Urea Nitrogen, Random Urine 477.0 mg/dL (350.0-1000.0)
[2025-09-08] MEDS: RINGERS LACTATED 500 ML 250 ML 999 ML IV (19:59)
[2025-09-08] MEDS: MIDODRINE 5 MG TABLET 10 MG PO (20:08)
--- NOTE | 2025-09-08 20:10 | XR_ITS ---
Examination: CT chest, without intravenous contrast. Sagittal and coronal 2-D reconstructions. Exam date and time: September 08, 2025, 2035 hours, comparison May 25, 2025 INDICATION: Shortness of breath today, history extensive mediastinal lymphadenopathy bilateral metastatic pulmonary nodules mild heart failure on CT examination May 25, 2025 CTDI:vol (mGy) 17.1 DLP: (mGycm) Technique: Multiple 3.0 mm axial sections of the chest to been obtained. Bone and lung density settings are obtained. Sagittal and coronal 2-D reconstructions have been obtained. Low dose protocols were performed. One or more of the following dose reduction techniques were used; automated exposure control, adjustment of the mA and/or KV according to patient size, use of iterative reconstruction technique. Findings: Extensive mediastinal lymphadenopathy again noted Thoracic aortic calcification no aneurysmal dilatation Pulmonary artery segments are not enlarged Moderate to large bilateral pleural effusions Prominent vascular congestion with septal pulmonary edema Soft subcentimeter pulmonary nodules again noted Liver irregular in contour No focal liver or splenic lesions Partial visualization mesenteric and periaortic lymphadenopathy IMPRESSION: Extensive mediastinal lymphadenopathy Mild heart failure Moderate to large bilateral pleural effusions Partial visualization abdominal lymphadenopathy
--- NOTE | 2025-09-08 20:16 | ESCONSULT_ITS ---
<Statement entered by Kervin Marquez MD - 09/11/25 23:46> I personally evaluated examined this patient the patient is well-known to me has a longstanding history of chronic A-fib pacemaker implantation AV modification continues to have rapid heart rates requiring multiple medication including diltiazem metoprolol and digoxin was recently discharged home after treatment for pleural effusions and congestive heart failure preserved ejection fraction came back to the hospital. Legs edema dehydration and bilateral large pleural effusions shortness of breath hypoxic respiratory failure. Evaluate patient resident physician patient clearly has large effusions may require thoracentesis. Patient is clinically dry do not need to do any more diuretics possibly 1 hydrate the patient elderly patient with resident physician Dr. Cline agree with the treatment plan recommendation as documented. HPI Data of Consult Requesting Physician: Miguel Angel Gardner MD Admitting Provider: Miguel Angel Gardner MD Attending Provider: Miguel Angel Gardner MD Primary Care Provider: Physician No Primary/Family Consult Narrative Reason for consult: SOB History of present illness: Patient is a 65-year-old male past medical historyA-fib, status post pacemaker placement (2006, with [address] 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 Patient was recently discharged from hospital on 09/04 after being treated for volume overload and A- fib. He is returning now with worsening symptoms. He noted that at home, his oxygen saturation was in the 80s while on 3 L of nasal cannula, and he was unaware that he could increase the flow rate. Complains of feeling dehydrated there is concern for overdiuresis from his last admission as creatinine is elevated at 3.2. Repeat chest imaging shows worsening bilateral pleural effusions. Patient was desaturating on 72% on room air. Placed on 6 L face mask ultimately improved to 93%. At bedside he was on room air saturations 86%. EKG showed controlled rate 87 irregular rhythm atrial fibrillation. Sodium 136, potassium 5.1, BUN 65, creatinine 3.2 (baseline appears to be around 1.2). Troponins were negative BNP normal limits. On physical exam he does not appear to be fluid overloaded. Recommend that patient be allowed to have some fluid intake due to VIOLETA in setting of possible overdiuresis. Due to soft blood pressure recommend holding digoxin and lisinopril. Okay to continue diltiazem, metoprolol tartrate, spironolactone for proper rate control. Past Medical History: Mention above Family History: Noncontributory Surgical History: Pacemaker, knee replacement Social History: Social drinker, THC for nausea, denies recreational drug use Current Medications: - fluconazole 200 mg tablet - metoprolol tartrate 100 mg tablet - digoxin 125 mcg (0.125 mg) tablet - bumetanide 1 mg tablet - diltiazem HCl 240 mg capsule,extended release 24hr - folic acid 1 mg tablet - spironolactone 25 mg tablet - Eliquis 5 mg Tablet - lisinopril 20 mg tablet Allergies: No known drug allergies cc:: cc: Miguel Angel Gardner MD Review of Systems Review of Systems Systems Reviewed: All systems reviewed, normal except as documented Exam Vital Signs Temp Pulse Resp BP Pulse Ox O2 Del Method O2 Flow Rate 97.9 F 95 15 78/50 L 92 L Oxy Mask 10 09/08/25 18:35 09/08/25 20:08 09/08/25 20:01 09/08/25 20:08 09/08/25 20:01 09/08/25 20:01 09/08/25 20:01 Narrative Exam General: Alert, moderate respiratory distress on 10L oxymask Skin: Warm, dry, intact. No rash or ecchymoses. Head: Normocephalic, atraumatic. Eye: Normal conjunctiva, PERRL. Throat: Oral mucosa moist. No obvious lesions in oropharynx. Cardiovascular: Regular rate and rhythm, no murmur, +S1/S2. Respiratory: Absent breath sounds in the left base, subtle end expiratory crackles in the right base and right upper lobe. No wheezing. Gastrointestinal: Soft, nontender, non-distended. No guarding or rebound tenderness. Extremities: No edema, no cyanosis, no clubbing. Neuro: Alert and oriented x3.No focal deficits observed. Conversant, moving all extremities. No overt cerebellar signs/incoordination. Psychiatric: Cooperative, appropriate affect Results Labs 09/08/25 14:10 09/08/25 14:10 Labs: Short CBC 09/08/25 Range/Units 14:10 WBC 17.6 H (3.8-10.6) Thou/mm3 Hgb 10.0 L (13.5-16.0) g/dL Hct 31.2 L (41.0-53.0) % Plt Count 489 H D (140-440) Thou/mm3 BMP 09/08/25 14:10 Sodium 136 Potassium 5.1 Chloride 99 Carbon Dioxide 25.4 BUN 65 H Creatinine 3.2 H D Glucose 113 H Calcium 8.6 Cardiac Enzymes 09/08/25 Range/Units 14:10 Troponin I < 0.020 (0.0-0.045) ng/mL Liver Function 09/08/25 Range/Units 14:10 Total Bilirubin 0.4 (0.3-1.2) mg/dL AST 54 H (0-34) U/L ALT 40 (10-49) U/L Alkaline Phosphatase 211 H (46-116) U/L Albumin 3.4 (3.4-4.8) gm/dL Urine 09/08/25 Range/Units 16:20 Urine Color Yellow (Lt Yel-Yel) Urine Clarity Hazy (Clear/Hazy) Urine pH 5.5 (5.0-7.0) Ur Specific [place] 1.017 (1.001-1.035) Urine Protein Trace (Neg - Trace) Urine Glucose (UA) Negative (Negative) Quality Measures Quality Measures VTE prophylaxis Advance care planning discussed with:: patient Medications Home Medications and Allergies Home Medications ?Medication ?Instructions ?Recorded ?Confirmed ?Type apixaban 5 mg tablet (Eliquis) 5 mg PO BID 12/12/23 History lisinopril 20 mg tablet 20 mg PO DAILY 03/16/2503/19 History digoxin 125 mcg (0.125 mg) tablet 0.125 mg PO DAILY 08/30/25 History methotrexate sodium 2.5 mg tablet 15 mg PO .Q WEEKLY 0 05/26/25 08/30/25 History Held on 09/03/25. Instructions: Hold until you follow-up with your PCP/oncologist metoprolol tartrate 100 mg tablet 100 mg PO Q12H 05/2608/30/25 History diltiazem HCl 240 mg 240 mg PO QDAY 08/30/2503/19 History capsule,extended release 24 hr folic acid 1 mg tablet 1 mg PO QDAY 08/30/25 History ondansetron 4 mg disintegrating 4 mg PO TID 08/30/25 1 10/31/24 History tablet Held on 09/03/25. Instructions: Hold until you follow-up with your PCP due to prolonged QTc spironolactone 25 mg tablet 25 mg PO QDAY 08/30/2503/19 History Allergies Allergy/AdvReac Type Severity Reaction Status Date / Time No Known Allergies Allergy Verified 09/08/25 13:28 Visit Medications Acetaminophen (Acetaminophen 325 Mg Tablet) 650 mg PO Q6H PRN PRN Reason: Fever >101.5 Stop: 10/08/25 17:07 Apixaban (Apixaban 2.5 Mg Tablet) 5 mg PO BID [facility] Stop: 10/08/25 20:59 Bumetanide (Bumetanide Inj 0.25 Mg/Ml Vial 4 Ml) 1 mg IVP QDAY [facility] Stop: 10/09/25 08:59 Diltiazem HCl (Diltiazem Cd 120 Mg Capcr) 240 mg PO QDAY [facility] Stop: 10/09/25 08:59 Doxycycline Hyclate (Doxycycline 100 Mg Tablet) 100 mg PO BID [facility] Stop: 09/15/25 20:59 Fluconazole (Fluconazole 100 Mg Tablet) 400 mg PO QDAY [facility] Stop: 09/16/25 08:59 Guaifenesin/Dextromethorphan (Guaifenesin/Dm Tablet) 1 each PO BID PRN PRN Reason: COUGH Stop: 10/08/25 17:58 Piperacillin/Tazobactam/Dextrose (Zosyn) 3.375 gm in 50 mls @ 100 mls/hr IV Q8HR [facility]; Protocol Stop: 09/15/25 17:11 Last Admin: 09/08/25 17:58 Dose: Not Given Ipratropium [place] (Ipratropium Rt 0.5 Mg/ 2.5 Ml Nebu) 0.5 mg INH Q8HRRT [facility] Stop: 10/08/25 22:59 Levalbuterol HCl (Levalbuterol Rt 1.25 Mg/0.5 Ml Nebu) 1.25 mg INH Q8HRRT [facility] Stop: 10/08/25 22:59 Metoprolol Tartrate (Metoprolol Tartrate 25 Mg Tablet) 100 mg PO QDAY [facility] Stop: 10/09/25 08:59 Midodrine (Midodrine 2.5 Mg Tablet) 2.5 mg PO TID PRN PRN Reason: SBP<90 and MAP<65 Stop: 10/08/25 18:17 Last Admin: 09/08/25 19:29 Dose: 2.5 mg Sodium Chloride (Sodium Chloride Rt Dominique 0.9% 3 Ml Nebu) 3 ml INH PRN PRN PRN Reason: SOLN Stop: 10/08/25 17:50 Discontinued Medications Albuterol/Ipratropium (Albuterol/Ipratropium (Duoneb) Rt Dominique 3 Ml Nebu) 3 ml INH Q4HRRT [facility] Stop: 10/08/25 18:59 Bumetanide (Bumetanide Inj 0.25 Mg/Ml Vial 4 Ml) 1 mg IVP X1 ONE Stop: 09/08/25 14:00 Last Admin: 09/08/25 14:32 Dose: 1 mg Piperacillin/Tazobactam/Dextrose (Zosyn) 3.375 gm in 50 mls @ 100 mls/hr IV X1 ONE; Protocol Stop: 09/08/25 16:06 Last Infusion: 09/08/25 17:58 Dose: Infused Lactated Ringer's (Lactated Ringers) 250 mls @ 999 mls/hr IV .Q16M ONE Stop: 09/08/25 20:01 Last Admin: 09/08/25 19:59 Dose: 999 mls/hr Midodrine (Midodrine 2.5 Mg Tablet) 2.5 mg PO TID ONE Stop: 09/08/25 18:18 Last Admin: 09/08/25 20:11 Dose: Not Given Midodrine (Midodrine 5 Mg Tablet) 5 mg PO X1 ONE Stop: 09/08/25 19:47 Last Admin: 09/08/25 20:13 Dose: Not Given Midodrine (Midodrine 2.5 Mg Tablet) 2.5 mg PO X1 ONE Stop: 09/08/25 20:01 Last Admin: 09/08/25 20:13 Dose: Not Given Midodrine (Midodrine 5 Mg Tablet) 10 mg PO X1 ONE Stop: 09/08/25 20:03 Last Admin: 09/08/25 20:08 Dose: 10 mg Sodium Chloride (Sodium Chloride Rt 10% 15 Ml Nebu) 5 ml INH X1 ONE Stop: 09/08/25 18:03 Assessment & Plan Plan Mr. Pena is 65-year-old _male with past medical history of A-fib, status post pacemaker placement (2006, with [address] 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 Admitted for acute hypoxic respiratory failure secondary to pleural effusion. Cardiology consulted for atrial fibrillation and concern for heart failure exacerbation. 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 Denies fever, chills, recent sick contact. Patient worsening dypnea likely due to bilateral pleural effusion. Patient work of breathing will likely improve after getting therapeutic thoracentesis. Chest x-ray showed chest x-ray bibasilar pneumonia/or edema large bilateral pleural effusion. Mild enlargement cardiac contour with prominent vascular congestion. PSI/PORT score 137 points- Risk Class V (high risk) , 27.0-29.2% mortality.? -continue antibiotics - Fluconazole 400 mg twice daily - Hold patient's Bumex in setting of VIOLETA and concern for overdiuresis - Hold digoxin and lisinopril due to hypotension - Resume diltiazem to 40 mg and metoprolol tartrate 100 mg twice daily for atrial fibrillation for rate control - Ultrasound thoracentesis #Hypertension Patient has a history of hypertension which he takes lisinopril at home. BP on admission is 90/63 downtrending to 85/61 Plan - Hold antihypertensive due to soft BP - Midodrine 2.5 mg p.o. 3 times daily as needed for SBP less than 90 and MAP present 65 #Atrial fibrillation, rate controlled, chronic #Sick sinus syndrome s/p pacemaker placement EKG is paced sinus rhythm Pt has pacemaker placed in 2006 which has been replaced [address] Marquez CHADsVAS score 4 -?6.7% risk of stroke/TIA/systemic embolism HAS BLED score 2 - Metoprolol tartrate 100 mg every 12 hours - Eliquis 5 mg p.o. twice daily - Diltiazem 240 mg p.o. daily - hold Digoxin 0.125 mg po daily -hold lisinopril - Keep K > 4 and Mg > 2 #HFpEF EF 55-60% Echo on 03/17/2025 showed EF 55-60%. Diastolic function difficult to evaluate due to A-fib. Severe biatrial dilation. -CTM -does not appear to be volume overloaded on exam -hold BUMEX #Normocytic anemia, chronic #Castleman syndrome #Coagulopathy #CT finding bilateral metastatic pulmonary nodules #VIOLETA Primary care team to manage above conditions and ongoing care needs. The patient's management plan was discussed with my attending physician Dr. Marquez. Naina Sher, PGY-2
[2025-09-08 21:19] LABS: Lactate (Lactic Acid) 2.4 mMol/L (0.4-2.0)
[2025-09-08] MEDS: DOXYCYCLINE 100 MG TABLET PO (21:22)
[2025-09-08 21:27] LABS: Base Excess, Venous 31 (-3-3); O2 Saturation, Venous 68 % (96-97); PCO2, Venous 38 mmHg (36-56); PO2, Venous 36 mmHg (15-58); pH, Venous 7.52 (7.33-7.66)
[2025-09-08] MEDS: Norepinephrine/D5W 8mg/250ml 8 MG/250 ML BAG 9.993 MG IV (21:45)
[2025-09-08 21:57] LABS: Anion Gap 11 (7-16); BUN/Creatinine Ratio 23 Ratio (12-20); Blood Urea Nitrogen 76 mg/dL (9-23); Calcium 8.8 mg/dL (8.3-10.6); Carbon Dioxide 28.9 mMol/L (20.0-31.0); Chloride 98 mMol/L (98-107); Creatinine (Component) 3.3 mg/dL (0.6-1.3); Estimated Creatinine Clearance 27.8 mL/min (>60); Glucose 139 mg/dL (74-106); Osmolality,Calculated 300 (275-295); Potassium 5.0 mMol/L (3.4-5.1); Sodium 138 mMol/L (136-145); eGFR 20 See Note
[2025-09-08 22:06] LABS: Procalcitonin 0.94 ng/ml (0.0-0.49)
--- NOTE | 2025-09-08 23:04 | ESCONSULT_ITS ---
HPI Data of Consult Requesting Physician: Miguel Angel Gardner MD Admitting Provider: Miguel Angel Gardner MD Attending Provider: Robb Villa Primary Care Provider: Physician No Primary/Family Consult Narrative History of present illness: HPI: 65-year-old male past medical history A-fib status post pacemaker [place] [address] 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 The patient was discharged on 09/04/2025 following treatment of superimposed pneumonia on a right sided pleural effusion. It was reported that at that time the thoracentesis was unable to be performed due to anatomic reasons. He was discharged on home oxygen and continued on fluconazole with a positive Coccidioides IgM antibody. The patient was advised to follow up with his PCP for further evaluation of Coccidioides IgG and to resume treatment for management once the results were available. However, the patient reported that the PCP was unable to obtain IgG levels. Of note, the patient has a history of Castleman syndrome and was receiving infusions of infliximab which have been paused for the past 3 months due to an abscess on his buttock that has been followed with wound care. Wound care recently cleared the patient to resume his infusions. Today he presented after progressively worsening shortness of breath. It was reported the patient was using 3 L at home and required 6 L upon arrival to the ED followed by 13 L oxime mask in order to maintain his saturations around 90. He was also found to have a creatinine of 3.2. The patient's MAP was not maintaining above 65. He was maintaining a MAP less than 60 after receiving 12.5 mg of midodrine and gentle fluid resuscitation of 250 mL. Lactate level had started going up, 2.4. Unable to administer further IV fluid as patient has bilateral crackles and is on high flow nasal cannula. T he patient was transferred to ICU for pressor support. ED Course: * Significant vitals on arrival: BP 90/60, pulse 98, respiratory rate 20 temp 97.7, saturating 95% on 6 L oxy mask. * Significant labs: WBC 17.6, hemoglobin 10, platelets 49, neutrophils 14.5, PT 12.4, BUN 65, creatinine 3.2, glucose 113, AST 54, alk phos 211, lactate dehydrogenase 342, Pro-Sixto 0.94, lactate 2.4 * VBG: pH 7.52, pCO2 of 38, PaO2 of 36, O2 sat 68 * Imaging: * Chest x-ray showed bibasilar pneumonia and/or edema with large bilateral pleural effusions. * EKG showed atrial fibrillation with a rate of 87 and a QTc of 403, no acute ST segment changes * Renal ultrasound showed bilateral renal cortical thickening, mild bilateral renal scar formation, small right kidney, no hydronephrosis * Chest CT showed extensive mediastinal lymphadenopathy, mild heart failure, moderate to large bilateral pleural effusions, partial visualization of abdominal lymphadenopathy * Urine: Positive for hyaline casts, granular creatinine 152, random chloride 23.9, positive for marijuana * ED intervention: Patient received a total of 12.5 mg midodrine, 3.375 GM Zosyn, 100 mg doxycycline 1 mg Bumex, 250 mL LR. Cardiology was consulted. History: * Past medical history: As above in HPI * Surgical history: Pacemaker, knee replacement * Social history: Social drinker, no tobacco, marijuana for nausea control Allergies: * No known drug allergies. Home Medications: (Pending Med Rec) * Allopurinol 300 mg daily. * Bumetanide 1 mg daily. * Digoxin 0.125 mg daily. * Diltiazem to 40 mg daily. * Eliquis 5 mg p.o. twice a day. * Hydrocodone acetaminophen as needed. * Lisinopril 20 mg p.o. daily. * Methotrexate 15 mg weekly. * Methylprednisolone 4 mg daily. * Metoprolol tartrate 100 mg every 12 hours CODE STATUS: Full Code cc:: cc: Miguel Angel Gardner MD Review of Systems Review of Systems Narrative Review of Systems: Review of Systems: * General: Denies fevers, chills. * HEENT: Denies headache, congestion, or sore throat. * Cardiac: Denies chest pain or palpitations. * Pulmonary: Progressively worsening shortness of breath over the past 2-3 days. Denies cough. * GI: Denies nausea, vomiting, diarrhea, constipation, melena, or hematochezia. * : Denies dysuria, hematuria, frequency, or urgency. * MSK: Denies pain in the extremities, joints, or myalgias. * Neuro: Denies weakness, numbness, vision changes, or speech difficulty. Exam Vital Signs Temp Pulse Resp BP Pulse Ox O2 Del Method O2 Flow Rate 99.0 F 107 H 20 92/69 95 High Flow Nasal Cannula 30 09/08/25 22:12 09/08/25 22:12 09/08/25 22:12 09/08/25 22:12 09/08/25 22:12 09/08/25 22:12 09/08/25 22:12 FiO2 80 09/08/25 22:12 Narrative Exam General: Increased work of breathing. Short of breath. Neurologic: GCS 15. Alert and oriented x3, no gross neurological deficit, and patient able to move all 4 extremities. HEENT: Normocephalic, atraumatic, mucous membranes moist. Pupils reactive to light. Heart: Irregular rhythm, rate in the 90s, normal S1 and S2, no murmurs. Lungs: Crackles in the bases bilaterally, clear to auscultation in the apices bilaterall. Abdomen: Soft, nondistended, nontender, positive bowel sounds. No guarding or rebound tenderness. Extremities: No edema. 2+ radial and dorsalis pedis pulses bilaterally. Skin: Warm. Dry. No rash or ecchymoses. Results Labs 09/08/25 14:10 09/08/25 21:11 Labs: Short CBC 09/08/25 Range/Units 14:10 WBC 17.6 H (3.8-10.6) Thou/mm3 Hgb 10.0 L (13.5-16.0) g/dL Hct 31.2 L (41.0-53.0) % Plt Count 489 H D (140-440) Thou/mm3 BMP 09/08/25 09/08/25 14:10 21:11 Sodium 136 138 Potassium 5.1 5.0 Chloride 99 98 Carbon Dioxide 25.4 28.9 BUN 65 H 76 H Creatinine 3.2 H D 3.3 H Glucose 113 H 139 H Calcium 8.6 8.8 Cardiac Enzymes 09/08/25 Range/Units 14:10 Troponin I < 0.020 (0.0-0.045) ng/mL Liver Function 09/08/25 Range/Units 14:10 Total Bilirubin 0.4 (0.3-1.2) mg/dL AST 54 H (0-34) U/L ALT 40 (10-49) U/L Alkaline Phosphatase 211 H (46-116) U/L Albumin 3.4 (3.4-4.8) gm/dL Urine 09/08/25 Range/Units 16:20 Urine Color Yellow (Lt Yel-Yel) Urine Clarity Hazy (Clear/Hazy) Urine pH 5.5 (5.0-7.0) Ur Specific [place] 1.017 (1.001-1.035) Urine Protein Trace (Neg - Trace) Urine Glucose (UA) Negative (Negative) ABG Interpretation ABG results: 09/08/25 21:11 VBG pH 7.52 VBG pCO2 38 VBG pO2 36 VBG Base Excess 31 H Quality Measures Quality Measures none Advance care planning discussed with:: patient Medications Home Medications and Allergies Home Medications ?Medication ?Instructions ?Recorded ?Confirmed ?Type apixaban 5 mg tablet (Eliquis) 5 mg PO BID 12/12/23 History lisinopril 20 mg tablet 20 mg PO DAILY 03/16/2503/19 History digoxin 125 mcg (0.125 mg) tablet 0.125 mg PO DAILY 08/30/25 History methotrexate sodium 2.5 mg tablet 15 mg PO .Q WEEKLY 0 05/26/25 08/30/25 History Held on 09/03/25. Instructions: Hold until you follow-up with your PCP/oncologist metoprolol tartrate 100 mg tablet 100 mg PO Q12H 05/2608/30/25 History diltiazem HCl 240 mg 240 mg PO QDAY 08/30/2503/19 History capsule,extended release 24 hr folic acid 1 mg tablet 1 mg PO QDAY 08/30/25 History ondansetron 4 mg disintegrating 4 mg PO TID 08/30/25 1 10/31/24 History tablet Held on 09/03/25. Instructions: Hold until you follow-up with your PCP due to prolonged QTc spironolactone 25 mg tablet 25 mg PO QDAY 08/30/2503/19 History Allergies Allergy/AdvReac Type Severity Reaction Status Date / Time No Known Allergies Allergy Verified 09/08/25 13:28 Visit Medications Acetaminophen (Acetaminophen 325 Mg Tablet) 650 mg PO Q6H PRN PRN Reason: Fever >101.5 Stop: 10/08/25 17:07 Apixaban (Apixaban 2.5 Mg Tablet) 5 mg PO BID DARLENE On Hold: 09/08/25 21:42 Stop: 10/08/25 20:59 Last Admin: 09/08/25 21:42 Dose: Not Given Bumetanide (Bumetanide Inj 0.25 Mg/Ml Vial 4 Ml) 1 mg IVP QDAY [facility] Stop: 10/09/25 08:59 Diltiazem HCl (Diltiazem Cd 120 Mg Capcr) 240 mg PO QDAY [facility] Stop: 10/09/25 08:59 Doxycycline Hyclate (Doxycycline 100 Mg Tablet) 100 mg PO BID [facility] Stop: 09/15/25 20:59 Last Admin: 09/08/25 21:22 Dose: 100 mg Fluconazole (Fluconazole 100 Mg Tablet) 400 mg PO QDAY [facility] Stop: 09/16/25 08:59 Guaifenesin/Dextromethorphan (Guaifenesin/Dm Tablet) 1 each PO BID PRN PRN Reason: COUGH Stop: 10/08/25 17:58 Piperacillin/Tazobactam/Dextrose (Zosyn) 3.375 gm in 50 mls @ 100 mls/hr IV Q8HR [facility]; Protocol Stop: 09/15/25 17:11 Last Admin: 09/08/25 22:57 Dose: 100 mls/hr Norepinephrine/Dextrose (Levophed In D5w 8mg/250ml) 8 mg in 250 mls @ 9.993 mls/hr IV .Q24H PRN; Protocol PRN Reason: PER PROTOCOL Stop: 10/08/25 21:35 Last Titration: 09/08/25 22:58 Dose: 0.07 mcg/kg/min, 13.99 mls/hr Ipratropium [place] (Ipratropium Rt 0.5 Mg/ 2.5 Ml Nebu) 0.5 mg INH Q8HRRT [facility] Stop: 10/08/25 22:59 Levalbuterol HCl (Levalbuterol Rt 1.25 Mg/0.5 Ml Nebu) 1.25 mg INH Q8HRRT [facility] Stop: 10/08/25 22:59 Metoprolol Tartrate (Metoprolol Tartrate 25 Mg Tablet) 100 mg PO QDAY [facility] Stop: 10/09/25 08:59 Midodrine (Midodrine 2.5 Mg Tablet) 2.5 mg PO TID PRN PRN Reason: SBP<90 and MAP<65 Stop: 10/08/25 18:17 Last Admin: 09/08/25 19:29 Dose: 2.5 mg Sodium Chloride (Sodium Chloride Rt Dominique 0.9% 3 Ml Nebu) 3 ml INH PRN PRN PRN Reason: SOLN Stop: 10/08/25 17:50 Discontinued Medications Albuterol/Ipratropium (Albuterol/Ipratropium (Duoneb) Rt Dominique 3 Ml Nebu) 3 ml INH Q4HRRT DARLENE Stop: 10/08/25 18:59 Bumetanide (Bumetanide Inj 0.25 Mg/Ml Vial 4 Ml) 1 mg IVP X1 ONE Stop: 09/08/25 14:00 Last Admin: 09/08/25 14:32 Dose: 1 mg Piperacillin/Tazobactam/Dextrose (Zosyn) 3.375 gm in 50 mls @ 100 mls/hr IV X1 ONE; Protocol Stop: 09/08/25 16:06 Last Infusion: 09/08/25 17:58 Dose: Infused Lactated Ringer's (Lactated Ringers) 250 mls @ 999 mls/hr IV .Q16M ONE Stop: 09/08/25 20:01 Last Infusion: 09/08/25 20:16 Dose: Infused Midodrine (Midodrine 2.5 Mg Tablet) 2.5 mg PO TID ONE Stop: 09/08/25 18:18 Last Admin: 09/08/25 20:11 Dose: Not Given Midodrine (Midodrine 5 Mg Tablet) 5 mg PO X1 ONE Stop: 09/08/25 19:47 Last Admin: 09/08/25 20:13 Dose: Not Given Midodrine (Midodrine 2.5 Mg Tablet) 2.5 mg PO X1 ONE Stop: 09/08/25 20:01 Last Admin: 09/08/25 20:13 Dose: Not Given Midodrine (Midodrine 5 Mg Tablet) 10 mg PO X1 ONE Stop: 09/08/25 20:03 Last Admin: 09/08/25 20:08 Dose: 10 mg Sodium Chloride (Sodium Chloride Rt 10% 15 Ml Nebu) 5 ml INH X1 ONE Stop: 09/08/25 18:03 Assessment & Plan Plan Summary: 09/08/2025: 65-year-old male past medical history A-fib status [place] [address] 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 Today he presented after progressively worsening shortness of breath. It was reported the patient was using 3 L at home and required 6 L upon arrival to the ED followed by 13 L oxime mask in order to maintain his saturations around 90. He was also found to have a creatinine of 3.2. The patient's MAP was not maintaining above 65. He was maintaining a MAP less than 60 after receiving 12.5 mg of midodrine and gentle fluid resuscitation of 250 mL. Unable to administer further IV fluid as patient has bilateral crackles and is on high flow nasal cannula. The patient was transferred to ICU for pressor support. Neuro No active problems Cardiovasc: #Sepsis leading to distributive shock secondary to #Pneumonia #Leukocytosis Differential Diagnoses: * May be secondary to, or contributed by, decreased fluid intake reflected by creatinine of 3.2 * Less likely hypovolemic shock, hemoglobin 10.0 and stable, no suspicion for active bleeding Diagnostic Tests: * Patient has had difficulty maintaining MAP above 65, has been 55-60 * Patient meets severe sepsis criteria , 3/4 SIRS with lactic acidosis and suspected source: * Heart rate over 90 * Respiratory rate over 20 * WBC 17.6 * Lactic acid 2.4 * Pneumonia as suspected source of infection Treatment: * Gentle fluid resuscitation with 250 mL bolus given in ED * Total of 12.5 mg midodrine given in ED * Levophed drip 0.07 mg/kg/min, titrate to maintain MAP above 65 * See below for antimicrobial treatment Evaluation of Treatment: * Monitor MAP #A-fib #Sick sinus syndrome status post pacemaker placement Diagnostic Test: * Established patient history * CHADsVAS score 4 -?6.7% risk of stroke/TIA/systemic embolism * HAS BLED score 2 * EKG showed atrial fibrillation with a rate of 87 and a QTc of 403, no acute ST segment changes Treatment: * Patient takes metoprolol, diltiazem, and Eliquis * Will hold these medications due to hypotension and potential thoracentesis * Keep potassium over 4, magnesium over 2 * Cardiology consulted #HFpEF EF 55-60% Diagnostic Test: * Echo on 03/17/2025 showed EF 55-60%. Diastolic function difficult to evaluate due to A-fib. Severe biatrial dilation. Treatment: * Strict ins and outs * Holding home meds due to VIOLETA Pulm: #Acute hypoxic respiratory failure Differential Diagnoses: * May consider COPD exacerbation due to worsening of dyspnea, however patient denies cough of productive sputum * Consider community-acquired pneumonia * May be secondary to compression atelectasis secondary to bilateral pleural effusions causing low ventilation/perfusion * May also be secondary to empyema formation Diagnostic Tests: * Chest CT showed moderate to large bilateral pleural effusions * Chest x-ray showed bibasilar pneumonia and/or edema with large bilateral pleural effusions * Ultrasound-guided thoracentesis was attempted on 09/02/2025, no safe site per IR Treatment: * Patient on BiPAP FiO2 of 50, rate of 30 * Patient received 1 mg Bumex in the ED, holding diuresis for now due to VIOLETA * Zosyn 3.375 GM IV every 8 hours * Doxycycline 100 mg p.o. twice daily * Guaifenesin p.o. twice daily as needed * Ipratropium 0.5 mg inhaled every 8 hours Evaluation of Treatment: * VBG: pH 7.52, pCO2 of 38, PaO2 of 36, O2 sat 68. Low saturation reinforces hypoxemic etiology. * Monitor O2 saturation #Bilateral Pleural Effusions #Pneumonia Diagnostic Tests: * Chest x-ray showed bibasilar pneumonia and/or edema with large bilateral pleural effusions. * Chest CT showed extensive mediastinal lymphadenopathy, mild heart failure, moderate to large bilateral pleural effusions, partial visualization of abdominal lymphadenopathy * Likely source of infection contributing to sepsis leading to distributive shock Treatment: * BiPAP * High flow nasal cannula * Doxycycline 100 mg p.o. twice daily * Zosyn 3.375 GM every 8 hours * Consider consult to IR Evaluation of Treatment: * Monitor O2 saturation #Previous CT finding Extensive Mediastinal Lymphadenopathy Diagnostic Tests: * 03/15/25 Chest CTA - extensive mediastinal lymphadenopathy, including anterior mediastinum, aortopulmonary window, high left periaortic, tracheobronchial and subcarinal as well as adjacent to the descending thoracic aorta, bilateral subcentimeter pulmonary nodules * 05/25/25 Chest CTA - Extensive tumor mediastinal lymphadenopathy and biilateral metastatic pulmonary nodules. At least 10 subcentimeter metastatic pulmonary nodules * Chest CT 09/08/2025 again noted extensive mediastinal lymphadenopathy Treatment: * No direct intervention at this time * Follow-up outpatient oncology Renal: #VIOLETA Differential Diagnoses: * May be secondary to polypharmacy versus dehydration Diagnostic Tests: * Patient presented with a BUN of 76, creatinine 3.2, down trended to 3.3 * Renal ultrasound showed bilateral renal cortical thickening, mild bilateral renal scar formation, small right kidney, no hydronephrosis * BNP and sodium are normal and calculated osmolality is slightly high, which may reinforce the patient being dry. However, he does have crackles on exam but no peripheral edema. * Though fluids would likely benefit his kidney function, it's difficult to give the patient fluids in the setting of bilateral pleural effusions and shortness of breath * Another differential may include polypharmacy with all of his antibiotics, leading to decreased GFR and fluid overload reflected by pleural effusions and shortness of breath. However the patient has no history of kidney disease and appears to have good urine output. Treatment: * Holding diuresis for now in the setting of VIOLETA * Encourage gentle oral hydration * Avoid nephrotoxic agents * Renally dose medications Evaluation of Treatment: * Daily labs GI: No active problems Endocrine: #Diabetes? Diagnostic Tests: * A1c 06/30/2025 6.2 * Patient is presented with blood glucose 120-140 in the past * Patient not on insulin or other diabetes medicine at home Treatment: * No direct intervention at this time #Castleman syndrome * Established diagnosis, patient follows up outpatient * Patient was receiving infusions of infliximab which have been paused for the past 3 months due to an abscess on his buttock that has been followed with wound care. Wound care recently cleared the patient to resume his infusions. * Patient unable to resume IL-6 inhibitor infusion due to positive cocci result Treatment: * No direct intervention at this time Heme/Onc: #Chronic normocytic anemia Differential Diagnoses: * May be secondary to anemia of chronic disease secondary to Castleman syndrome * MCV is normal, reinforces anemia of chronic disease versus nutritional deficiency Diagnostic Tests: * CBC Treatment: * No direct intervention at this time Evaluation of Treatment: * Monitor CBC with daily labs Infxs: #Cocci serology positive Diagnostic Tests: * Patient positive for cocci IgM on 08/30/2025 Treatment: * Was discharged on fluconazole 400 mg daily * Will continue this visit Evaluation of Treatment: * It was reported that the patient reported that his PCP was unable to obtain cocci IgG levels Skin: No active problems. ICU Maintenance: DVT ppx: Holding, pending possible thora. GI ppx: Diet: N.p.o. IV lines: Peripheral IVs Code status: Full code Dispo: ICU for pressor support, currently receiving BiPAP, pending eval for possible thoracentesis. Patient was seen and discussed with my attending physician Dr. Allen HONG and my senior resident Dr. Yvon HONG PGY-3. Daniel Leonard DO PGY-1. Attending Provider Attestation/Addendum I have seen and examined the patient. I was physically present for the varner portions of the services provided including history, physical exam, diagnosis, treatment plans and orders. I agree with assessment and plan of care as documented by residents. Even though this this note was carefully revised there may still be minor errors in geography professor due to voice recognition software. Robb Villa MD
--- NOTE | 2025-09-08 23:04 | PD.RESCONSUL ---
HPI Data of Consult Requesting Physician: Miguel Angel Gardner MD Admitting Provider: Miguel Angel Gardner MD Attending Provider: Robb Villa Primary Care Provider: Physician No Primary/Family Consult Narrative History of present illness: HPI: 65-year-old male past medical history A-fib status [place] [address] 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 The patient was discharged on 09/04/2025 following treatment of superimposed pneumonia on a right sided pleural effusion. It was reported that at that time the thoracentesis was unable to be performed due to anatomic reasons. He was discharged on home oxygen and continued on fluconazole with a positive Coccidioides IgM antibody. The patient was advised to follow up with his PCP for further evaluation of Coccidioides IgG and to resume treatment for management once the results were available. However, the patient reported that the PCP was unable to obtain IgG levels. Of note, the patient has a history of Castleman syndrome and was receiving infusions of infliximab which have been paused for the past 3 months due to an abscess on his buttock that has been followed with wound care. Wound care recently cleared the patient to resume his infusions. Today he presented after progressively worsening shortness of breath. It was reported the patient was using 3 L at home and required 6 L upon arrival to the ED followed by 13 L oxime mask in order to maintain his saturations around 90. He was also found to have a creatinine of 3.2. The patient's MAP was not maintaining above 65. He was maintaining a MAP less than 60 after receiving 12.5 mg of midodrine and gentle fluid resuscitation of 250 mL. Lactate level had started going up, 2.4. Unable to administer further IV fluid as patient has bilateral crackles and is on high flow nasal cannula. The patient was transferred to ICU for pressor support. ED Course: Significant vitals on arrival: BP 90/60, pulse 98, respiratory rate 20 temp 97.7, saturating 95% on 6 L oxy mask. Significant labs: WBC 17.6, hemoglobin 10, platelets 49, neutrophils 14.5, PT 12.4, BUN 65, creatinine 3.2, glucose 113, AST 54, alk phos 211, lactate dehydrogenase 342, Pro-Sixto 0.94, lactate 2.4 VBG: pH 7.52, pCO2 of 38, PaO2 of 36, O2 sat 68 Imaging: Chest x-ray showed bibasilar pneumonia and/or edema with large bilateral pleural effusions. EKG showed atrial fibrillation with a rate of 87 and a QTc of 403, no acute ST segment changes Renal ultrasound showed bilateral renal cortical thickening, mild bilateral renal scar formation, small right kidney, no hydronephrosis Chest CT showed extensive mediastinal lymphadenopathy, mild heart failure, moderate to large bilateral pleural effusions, partial visualization of abdominal lymphadenopathy Urine: Positive for hyaline casts, granular creatinine 152, random chloride 23.9, positive for marijuana ED intervention: Patient received a total of 12.5 mg midodrine, 3.375 GM Zosyn, 100 mg doxycycline 1 mg Bumex, 250 mL LR. Cardiology was consulted. History: Past medical history: As above in HPI Surgical history: Pacemaker, knee replacement Social history: Social drinker, no tobacco, marijuana for nausea control Allergies: No known drug allergies. Home Medications: (Pending Med Rec) Allopurinol 300 mg daily. Bumetanide 1 mg daily. Digoxin 0.125 mg daily. Diltiazem to 40 mg daily. Eliquis 5 mg p.o. twice a day. Hydrocodone acetaminophen as needed. Lisinopril 20 mg p.o. daily. Methotrexate 15 mg weekly. Methylprednisolone 4 mg daily. Metoprolol tartrate 100 mg every 12 hours CODE STATUS: Full Code cc:: cc: Miguel Angel Gardner MD Review of Systems Review of Systems Narrative Review of Systems: Review of Systems: General: Denies fevers, chills. HEENT: Denies headache, congestion, or sore throat. Cardiac: Denies chest pain or palpitations. Pulmonary: Progressively worsening shortness of breath over the past 2-3 days. Denies cough. GI: Denies nausea, vomiting, diarrhea, constipation, melena, or hematochezia. : Denies dysuria, hematuria, frequency, or urgency. MSK: Denies pain in the extremities, joints, or myalgias. Neuro: Denies weakness, numbness, vision changes, or speech difficulty. Exam Vital Signs Temp Pulse Resp BP Pulse Ox O2 Del Method O2 Flow Rate 99.0 F 107 H 20 92/69 95 High Flow Nasal Cannula 30 09/08/25 22:12 09/08/25 22:12 09/08/25 22:12 09/08/25 22:12 09/08/25 22:12 09/08/25 22:12 09/08/25 22:12 FiO2 80 09/08/25 22:12 Narrative Exam General: Increased work of breathing. Short of breath. Neurologic: GCS 15. Alert and oriented x3, no gross neurological deficit, and patient able to move all 4 extremities. HEENT: Normocephalic, atraumatic, mucous membranes moist. Pupils reactive to light. Heart: Irregular rhythm, rate in the 90s, normal S1 and S2, no murmurs. Lungs: Crackles in the bases bilaterally, clear to auscultation in the apices bilaterall. Abdomen: Soft, nondistended, nontender, positive bowel sounds. No guarding or rebound tenderness. Extremities: No edema. 2+ radial and dorsalis pedis pulses bilaterally. Skin: Warm. Dry. No rash or ecchymoses. Results Labs 09/08/25 14:10 09/08/25 21:11 Labs: Short CBC 09/08/25 Range/Units 14:10 WBC 17.6 H (3.8-10.6) Thou/mm3 Hgb 10.0 L (13.5-16.0) g/dL Hct 31.2 L (41.0-53.0) % Plt Count 489 H D (140-440) Thou/mm3 BMP 09/08/25 09/08/25 14:10 21:11 Sodium 136 138 Potassium 5.1 5.0 Chloride 99 98 Carbon Dioxide 25.4 28.9 BUN 65 H 76 H Creatinine 3.2 H D 3.3 H Glucose 113 H 139 H Calcium 8.6 8.8 Cardiac Enzymes 09/08/25 Range/Units 14:10 Troponin I < 0.020 (0.0-0.045) ng/mL Liver Function 09/08/25 Range/Units 14:10 Total Bilirubin 0.4 (0.3-1.2) mg/dL AST 54 H (0-34) U/L ALT 40 (10-49) U/L Alkaline Phosphatase 211 H (46-116) U/L Albumin 3.4 (3.4-4.8) gm/dL Urine 09/08/25 Range/Units 16:20 Urine Color Yellow (Lt Yel-Yel) Urine Clarity Hazy (Clear/Hazy) Urine pH 5.5 (5.0-7.0) Ur Specific [place] 1.017 (1.001-1.035) Urine Protein Trace (Neg - Trace) Urine Glucose (UA) Negative (Negative) ABG Interpretation ABG results: 09/08/25 21:11 VBG pH 7.52 VBG pCO2 38 VBG pO2 36 VBG Base Excess 31 H Quality Measures Quality Measures none Advance care planning discussed with:: patient Medications Home Medications and Allergies Home Medications ?Medication ?Instructions ?Recorded ?Confirmed ?Type apixaban 5 mg tablet (Eliquis) 5 mg PO BID 12/12/23 08/30/25 History lisinopril 20 mg tablet 20 mg PO DAILY 03/16/25 08/30/25 History digoxin 125 mcg (0.125 mg) tablet 0.125 mg PO DAILY 05/26/25 08/30/25 History methotrexate sodium 2.5 mg tablet 15 mg PO .Q WEEKLY 05/26/25 08/30/25 History Held on 09/03/25. Instructions: Hold until you follow-up with your PCP/oncologist metoprolol tartrate 100 mg tablet 100 mg PO Q12H 05/26/25 08/30/25 History diltiazem HCl 240 mg 240 mg PO QDAY 08/30/25 08/30/25 History capsule,extended release 24 hr folic acid 1 mg tablet 1 mg PO QDAY 08/30/25 08/30/25 History ondansetron 4 mg disintegrating 4 mg PO TID 08/30/25 08/30/25 History tablet Held on 09/03/25. Instructions: Hold until you follow-up with your PCP due to prolonged QTc spironolactone 25 mg tablet 25 mg PO QDAY 08/30/25 08/30/25 History Allergies Allergy/AdvReac Type Severity Reaction Status Date / Time No Known Allergies Allergy Verified 09/08/25 13:28 Visit Medications Acetaminophen (Acetaminophen 325 Mg Tablet) 650 mg PO Q6H PRN PRN Reason: Fever >101.5 Stop: 10/08/25 17:07 Apixaban (Apixaban 2.5 Mg Tablet) 5 mg PO BID DARLENE On Hold: 09/08/25 21:42 Stop: 10/08/25 20:59 Last Admin: 09/08/25 21:42 Dose: Not Given Bumetanide (Bumetanide Inj 0.25 Mg/Ml Vial 4 Ml) 1 mg IVP QDAY [facility] Stop: 10/09/25 08:59 Diltiazem HCl (Diltiazem Cd 120 Mg Capcr) 240 mg PO QDAY [facility] Stop: 10/09/25 08:59 Doxycycline Hyclate (Doxycycline 100 Mg Tablet) 100 mg PO BID [facility] Stop: 09/15/25 20:59 Last Admin: 09/08/25 21:22 Dose: 100 mg Fluconazole (Fluconazole 100 Mg Tablet) 400 mg PO QDAY [facility] Stop: 09/16/25 08:59 Guaifenesin/Dextromethorphan (Guaifenesin/Dm Tablet) 1 each PO BID PRN PRN Reason: COUGH Stop: 10/08/25 17:58 Piperacillin/Tazobactam/Dextrose (Zosyn) 3.375 gm in 50 mls @ 100 mls/hr IV Q8HR [facility]; Protocol Stop: 09/15/25 17:11 Last Admin: 09/08/25 22:57 Dose: 100 mls/hr Norepinephrine/Dextrose (Levophed In D5w 8mg/250ml) 8 mg in 250 mls @ 9.993 mls/hr IV .Q24H PRN; Protocol PRN Reason: PER PROTOCOL Stop: 10/08/25 21:35 Last Titration: 09/08/25 22:58 Dose: 0.07 mcg/kg/min, 13.99 mls/hr Ipratropium [place] (Ipratropium Rt 0.5 Mg/ 2.5 Ml Nebu) 0.5 mg INH Q8HRRT [facility] Stop: 10/08/25 22:59 Levalbuterol HCl (Levalbuterol Rt 1.25 Mg/0.5 Ml Nebu) 1.25 mg INH Q8HRRT [facility] Stop: 10/08/25 22:59 Metoprolol Tartrate (Metoprolol Tartrate 25 Mg Tablet) 100 mg PO QDAY [facility] Stop: 10/09/25 08:59 Midodrine (Midodrine 2.5 Mg Tablet) 2.5 mg PO TID PRN PRN Reason: SBP<90 and MAP<65 Stop: 10/08/25 18:17 Last Admin: 09/08/25 19:29 Dose: 2.5 mg Sodium Chloride (Sodium Chloride Rt Dominique 0.9% 3 Ml Nebu) 3 ml INH PRN PRN PRN Reason: SOLN Stop: 10/08/25 17:50 Discontinued Medications Albuterol/Ipratropium (Albuterol/Ipratropium (Duoneb) Rt Dominique 3 Ml Nebu) 3 ml INH Q4HRRT DARLENE Stop: 10/08/25 18:59 Bumetanide (Bumetanide Inj 0.25 Mg/Ml Vial 4 Ml) 1 mg IVP X1 ONE Stop: 09/08/25 14:00 Last Admin: 09/08/25 14:32 Dose: 1 mg Piperacillin/Tazobactam/Dextrose (Zosyn) 3.375 gm in 50 mls @ 100 mls/hr IV X1 ONE; Protocol Stop: 09/08/25 16:06 Last Infusion: 09/08/25 17:58 Dose: Infused Lactated Ringer's (Lactated Ringers) 250 mls @ 999 mls/hr IV .Q16M ONE Stop: 09/08/25 20:01 Last Infusion: 09/08/25 20:16 Dose: Infused Midodrine (Midodrine 2.5 Mg Tablet) 2.5 mg PO TID ONE Stop: 09/08/25 18:18 Last Admin: 09/08/25 20:11 Dose: Not Given Midodrine (Midodrine 5 Mg Tablet) 5 mg PO X1 ONE Stop: 09/08/25 19:47 Last Admin: 09/08/25 20:13 Dose: Not Given Midodrine (Midodrine 2.5 Mg Tablet) 2.5 mg PO X1 ONE Stop: 09/08/25 20:01 Last Admin: 09/08/25 20:13 Dose: Not Given Midodrine (Midodrine 5 Mg Tablet) 10 mg PO X1 ONE Stop: 09/08/25 20:03 Last Admin: 09/08/25 20:08 Dose: 10 mg Sodium Chloride (Sodium Chloride Rt 10% 15 Ml Nebu) 5 ml INH X1 ONE Stop: 09/08/25 18:03 Assessment & Plan Plan Summary: 09/08/2025: 65-year-old male past medical history A-fib status [place] [address] 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 Today he presented after progressively worsening shortness of breath. It was reported the patient was using 3 L at home and required 6 L upon arrival to the ED followed by 13 L oxime mask in order to maintain his saturations around 90. He was also found to have a creatinine of 3.2. The patient's MAP was not maintaining above 65. He was maintaining a MAP less than 60 after receiving 12.5 mg of midodrine and gentle fluid resuscitation of 250 mL. Unable to administer further IV fluid as patient has bilateral crackles and is on high flow nasal cannula. The patient was transferred to ICU for pressor support. Neuro No active problems Cardiovasc: #Sepsis leading to distributive shock secondary to #Pneumonia #Leukocytosis Differential Diagnoses: May be secondary to, or contributed by, decreased fluid intake reflected by creatinine of 3.2 Less likely hypovolemic shock, hemoglobin 10.0 and stable, no suspicion for active bleeding Diagnostic Tests: Patient has had difficulty maintaining MAP above 65, has been 55-60 Patient meets severe sepsis criteria , 3/4 SIRS with lactic acidosis and suspected source: Heart rate over 90 Respiratory rate over 20 WBC 17.6 Lactic acid 2.4 Pneumonia as suspected source of infection Treatment: Gentle fluid resuscitation with 250 mL bolus given in ED Total of 12.5 mg midodrine given in ED Levophed drip 0.07 mg/kg/min, titrate to maintain MAP above 65 See below for antimicrobial treatment Evaluation of Treatment: Monitor MAP #A-fib #Sick sinus syndrome status post pacemaker placement Diagnostic Test: Established patient history CHADsVAS score 4 -?6.7% risk of stroke/TIA/systemic embolism HAS BLED score 2 EKG showed atrial fibrillation with a rate of 87 and a QTc of 403, no acute ST segment changes Treatment: Patient takes metoprolol, diltiazem, and Eliquis Will hold these medications due to hypotension and potential thoracentesis Keep potassium over 4, magnesium over 2 Cardiology consulted #HFpEF EF 55-60% Diagnostic Test: Echo on 03/17/2025 showed EF 55-60%. Diastolic function difficult to evaluate due to A-fib. Severe biatrial dilation. Treatment: Strict ins and outs Holding home meds due to VIOLETA Pulm: #Acute hypoxic respiratory failure Differential Diagnoses: May consider COPD exacerbation due to worsening of dyspnea, however patient denies cough of productive sputum Consider community-acquired pneumonia May be secondary to compression atelectasis secondary to bilateral pleural effusions causing low ventilation/perfusion May also be secondary to empyema formation Diagnostic Tests: Chest CT showed moderate to large bilateral pleural effusions Chest x-ray showed bibasilar pneumonia and/or edema with large bilateral pleural effusions Ultrasound-guided thoracentesis was attempted on 09/02/2025, no safe site per IR Treatment: Patient on BiPAP FiO2 of 50, rate of 30 Patient received 1 mg Bumex in the ED, holding diuresis for now due to VIOLETA Zosyn 3.375 GM IV every 8 hours Doxycycline 100 mg p.o. twice daily Guaifenesin p.o. twice daily as needed Ipratropium 0.5 mg inhaled every 8 hours Evaluation of Treatment: VBG: pH 7.52, pCO2 of 38, PaO2 of 36, O2 sat 68. Low saturation reinforces hypoxemic etiology. Monitor O2 saturation #Bilateral Pleural Effusions #Pneumonia Diagnostic Tests: Chest x-ray showed bibasilar pneumonia and/or edema with large bilateral pleural effusions. Chest CT showed extensive mediastinal lymphadenopathy, mild heart failure, moderate to large bilateral pleural effusions, partial visualization of abdominal lymphadenopathy Likely source of infection contributing to sepsis leading to distributive shock Treatment: BiPAP High flow nasal cannula Doxycycline 100 mg p.o. twice daily Zosyn 3.375 GM every 8 hours Consider consult to IR Evaluation of Treatment: Monitor O2 saturation #Previous CT finding Extensive Mediastinal Lymphadenopathy Diagnostic Tests: 03/15/25 Chest CTA - extensive mediastinal lymphadenopathy, including anterior mediastinum, aortopulmonary window, high left periaortic, tracheobronchial and subcarinal as well as adjacent to the descending thoracic aorta, bilateral subcentimeter pulmonary nodules 05/25/25 Chest CTA - Extensive tumor mediastinal lymphadenopathy and biilateral metastatic pulmonary nodules. At least 10 subcentimeter metastatic pulmonary nodules Chest CT 09/08/2025 again noted extensive mediastinal lymphadenopathy Treatment: No direct intervention at this time Follow-up outpatient oncology Renal: #VIOLETA Differential Diagnoses: May be secondary to polypharmacy versus dehydration Diagnostic Tests: Patient presented with a BUN of 76, creatinine 3.2, down trended to 3.3 Renal ultrasound showed bilateral renal cortical thickening, mild bilateral renal scar formation, small right kidney, no hydronephrosis BNP and sodium are normal and calculated osmolality is slightly high, which may reinforce the patient being dry. However, he does have crackles on exam but no peripheral edema. Though fluids would likely benefit his kidney function, it's difficult to give the patient fluids in the setting of bilateral pleural effusions and shortness of breath Another differential may include polypharmacy with all of his antibiotics, leading to decreased GFR and fluid overload reflected by pleural effusions and shortness of breath. However the patient has no history of kidney disease and appears to have good urine output. Treatment: Holding diuresis for now in the setting of VIOLETA Encourage gentle oral hydration Avoid nephrotoxic agents Renally dose medications Evaluation of Treatment: Daily labs GI: No active problems Endocrine: #Diabetes? Diagnostic Tests: A1c 06/30/2025 6.2 Patient is presented with blood glucose 120-140 in the past Patient not on insulin or other diabetes medicine at home Treatment: No direct intervention at this time #Castleman syndrome Established diagnosis, patient follows up outpatient Patient was receiving infusions of infliximab which have been paused for the past 3 months due to an abscess on his buttock that has been followed with wound care. Wound care recently cleared the patient to resume his infusions. Patient unable to resume IL-6 inhibitor infusion due to positive cocci result Treatment: No direct intervention at this time Heme/Onc: #Chronic normocytic anemia Differential Diagnoses: May be secondary to anemia of chronic disease secondary to Castleman syndrome MCV is normal, reinforces anemia of chronic disease versus nutritional deficiency Diagnostic Tests: CBC Treatment: No direct intervention at this time Evaluation of Treatment: Monitor CBC with daily labs Infxs: #Cocci serology positive Diagnostic Tests: Patient positive for cocci IgM on 08/30/2025 Treatment: Was discharged on fluconazole 400 mg daily Will continue this visit Evaluation of Treatment: It was reported that the patient reported that his PCP was unable to obtain cocci IgG levels Skin: No active problems. ICU Maintenance: DVT ppx: Holding, pending possible thora. GI ppx: Diet: N.p.o. IV lines: Peripheral IVs Code status: Full code Dispo: ICU for pressor support, currently receiving BiPAP, pending eval for possible thoracentesis. Patient was seen and discussed with my attending physician Dr. Allen HONG and my senior resident Dr. Yvon HONG PGY-3. Daniel Leonard DO PGY-1. Attending Provider Attestation/Addendum I have seen and examined the patient. I was physically present for the varner portions of the services provided including history, physical exam, diagnosis, treatment plans and orders. I agree with assessment and plan of care as documented by residents. Even though this this note was carefully revised there may still be minor errors in guidance adviser due to voice recognition software. Robb Villa MD
[2025-09-08] MEDS: LEVALBUTEROL RT 1.25 MG/0.5 ML NEBU INH (23:07)
[2025-09-08] MEDS: IPRATROPIUM RT 0.5 MG/ 2.5 ML NEBU INH (23:07)
[2025-09-08] MEDS: SODIUM CHLORIDE RT SOL 0.9% 3 ML NEBU INH (23:07)
[2025-09-09] VITALS (115 sets, daily range): BP systolic 78–119; BP diastolic 38–88; PULSE 92–129; RESP 15–139; TEMP 36.2–36.8; O2SAT 80–100; BMI 29.8; BMI 29.9
[2025-09-09 00:14] LABS: Reflex Lactate? Y
[2025-09-09 00:55] LABS: Lactic Acid, 3 HR 2.0 mMol/L (0.4-2.0)
[2025-09-09] MEDS: PIPER/TAZO 3.375 GM PREMIX 3.375 GM/50 ML BAG IV (05:30)
[2025-09-09 05:50] LABS: Basophils # (Auto) 0.1 Thou/mm3 (0.0-0.2); Basophils % (Auto) 0 % (0-2.5); Eosinophils # (Auto) 0.1 Thou/mm3 (0.0-0.5); Eosinophils % (Auto) 1 % (0-10); Hematocrit 29.2 % (41.0-53.0); Hemoglobin 9.3 g/dL (13.5-16.0); Immature Granulocytes Auto 0.28 Thou/mm3 (0.00-0.00); Lymphocytes # (Auto) 1.5 Thou/mm3 (1.0-4.8); Lymphocytes % (Auto) 9 % (10-50); Mean Corpuscular HGB Conc 31.8 g/dl (31.0-37.0); Mean Corpuscular Hemoglobin 29.5 pg (25.0-35.0); Mean Corpuscular Volume 93 fL (80-100); Monocytes # (Auto) 0.9 Thou/mm3 (0.0-0.8); Monocytes % (Auto) 5 % (0-12); Neutrophils # (Auto) 14.0 Thou/mm3 (1.8-7.7); Neutrophils % (Auto) 83 % (37-80); Nucleated Red Blood Cell # 0.00 Thou/mm3 (0.00-0.00); Nucleated Red Blood Cell % 0 /100 WBC (0); Platelet Count 367 Thou/mm3 (140-440); RDW Standard Deviation 52.7 fL (35.1-43.9); Red Blood Count 3.15 Miln/mm3 (4.50-5.90); White Blood Count 16.8 Thou/mm3 (3.8-10.6)
[2025-09-09] MEDS: IPRATROPIUM RT 0.5 MG/ 2.5 ML NEBU INH ×3 (06:31→23:10)
[2025-09-09] MEDS: LEVALBUTEROL RT 1.25 MG/0.5 ML NEBU INH ×3 (06:31→23:10)
[2025-09-09 06:41] LABS: Alanine Aminotransferase 31 U/L (10-49); Albumin, Serum 3.0 gm/dL (3.4-4.8); Albumin/Globulin Ratio 0.7 (1.2-2.2); Alkaline Phosphatase 202 U/L (46-116); Anion Gap 11 (7-16); Aspartate Amino Transferase 36 U/L (0-34); BUN/Creatinine Ratio 23 Ratio (12-20); Bilirubin,Total 0.5 mg/dL (0.3-1.2); Blood Urea Nitrogen 68 mg/dL (9-23); Calcium 8.4 mg/dL (8.3-10.6); Calcium (Corrected) 9.2 mg/dL (8.5-10.1); Carbon Dioxide 25.6 mMol/L (20.0-31.0); Chloride 101 mMol/L (98-107); Creatine Kinase 16 U/L (34-171); Creatinine (Component) 3.0 mg/dL (0.6-1.3); Digoxin 0.9 ng/mL (0.8-2.0); Estimated Creatinine Clearance 30.1 mL/min (>60); Globulin 4.2 gm/dL (2.3-3.5); Glucose 141 mg/dL (74-106); Magnesium 2.4 mg/dL (1.6-2.6); Osmolality,Calculated 297 (275-295); Phosphorous 5.6 mg/dL (2.4-5.1); Potassium 5.0 mMol/L (3.4-5.1); Sodium 138 mMol/L (136-145); Total Protein 7.2 gm/dL (5.7-8.2); eGFR 22 See Note
--- NOTE | 2025-09-09 07:46 | ESPR_ITS ---
<Statement entered by Raghavendra Villar MD - 09/10/25 11:49> TOTAL CC TIME: 45 MIN I saw and evaluated the patient. I reviewed the resident?s note and agree with findings and plan as documented in the resident?s note. Upon my evaluation, this patient had a high probability of imminent or life- threatening deterioration due to septic shock from pneumonia, which required my direct attention, intervention, and personal management. This time is exclusive of time spent on procedures, which are documented separately if performed. Ceftriaxone 2 g every 24 hours attempt sputum cultures follow-up final blood cultures monitor chest x-ray especially if symptoms are worse Continue Levophed for a MAP goal of 65 or greater Bedside POCUS identifies severe biatrial enlargement which we already knew from prior echocardiograms; IVC is greater than 50% collapsible on inspiration consistent with likely fluid responsiveness Given the history of diastolic dysfunction, current tachycardia with A-fib, and severe biatrial enlargement we will gently provide IV fluid to read reduce/mitigate risks of pulmonary edema and worsening cardiovascular performance VIOLETA due to volume depletion most likely Bilateral pleural effusions reveal hyperechoic debris likely due to an exudate. Right thoracentesis will be performed today followed by left thoracentesis tomorrow <Statement entered by Kannan Orozco MD - 09/09/25 17:58> I have reviewed the note and agree with the resident's assessment & plan with exceptions as below. I have personally reviewed labs, imaging, home meds/prior records, examined the patient, formulated and discussed management plan with the IM team. Pt examined at bedside today. 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 Pt revealed to have lymphadenopathy as as early as [address] scans that also show peribronchial thickening. Pt also noted to have pulmonary nodules, that was not seen previous CT scans. It was noted pt had first pleural effusion November 2023 that revealed to be transduative in nature (related to HFpEF), and then another exudative pleural effusion (Feb 2025). Cocci reviewed to be negative with IgG from [facility] (Fluconazole shortly discontinued). Upon use of POCUS, it was revealed pt has had bilateral pleural effusions in which thoracentesis was done, presumed to be chylothorax on appearance (see procedure report). Pleural Fluid analysis ordered, Triglyceride for pleural fluid was a sent out lab. Low Fat diet ordered, (see order for details on Diet) due to concern for Chylothorax. Pt will need R sided thoracentesis. Serum LDH ordered to evaluate pleural effusion. Pt currently in ARF, Nephrology following at this time, does not appear to have CKD in the past. Will continue to hold Eliquis for thoracentesis tomorrow as it was not resumed yet due to planned thoracentesis for today. Abx deescalated to Rocephin 2 g IV. Continue LR ringers 125 cc/hr until tomorrow. Will not add any rate controlling medicines or antihypertensives at this time as pt is currently in shock (secondary to pneumonia and effusions), wean down as tolerated. F/u w/repeat Echo. Repeat hematology and chemistry in AM. #Sepsis leading to distributive shock secondary to #Pneumonia #Leukocytosis #A-fib #Sick sinus syndrome status post pacemaker placement #HFpEF EF 55-60% #Acute hypoxic respiratory failure #Bilateral Pleural Effusions #Pneumonia #Previous CT finding Extensive Mediastinal Lymphadenopathy #Pulmonary Nodules #VIOLETA #Diabetes? #Castleman syndrome #Chronic normocytic anemia Kannan Orozco, PGY-2 Internal Medicine Documentation for date of: 09/09/25 Subjective Subjective Interval history: 65-year-old male past medical history A-fib status [place] [address] 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 The patient was discharged on 09/04/2025 following treatment of superimposed pneumonia on a right sided pleural effusion. It was reported that at that time the thoracentesis was unable to be performed due to anatomic reasons. He was discharged on home oxygen and continued on fluconazole with a positive Coccidioides IgM antibody. The patient was advised to follow up with his PCP for further evaluation of Coccidioides IgG and to resume treatment for management once the results were available. However, the patient reported that the PCP was unable to obtain IgG levels. Of note, the patient has a history of Castleman syndrome and was receiving infusions of infliximab which have been paused for the past 3 months due to an abscess on his buttock that has been followed with wound care. Wound care recently cleared the patient to resume his infusions. Today he presented after progressively worsening shortness of breath. It was reported the patient was using 3 L at home and required 6 L upon arrival to the ED followed by 13 L oxime mask in order to maintain his saturations around 90. He was also found to have a creatinine of 3.2. The patient's MAP was not maintaining above 65. He was maintaining a MAP less than 60 after receiving 12.5 mg of midodrine and gentle fluid resuscitation of 250 mL. Lactate level had started going up, 2.4. Unable to administer further IV fluid as patient has bilateral crackles and is on high flow nasal cannula. T he patient was transferred to ICU for pressor support. ED Course: * Significant vitals on arrival: BP 90/60, pulse 98, respiratory rate 20 temp 97.7, saturating 95% on 6 L oxy mask. * Significant labs: WBC 17.6, hemoglobin 10, platelets 49, neutrophils 14.5, PT 12.4, BUN 65, creatinine 3.2, glucose 113, AST 54, alk phos 211, lactate dehydrogenase 342, Pro-Sixto 0.94, lactate 2.4 * VBG: pH 7.52, pCO2 of 38, PaO2 of 36, O2 sat 68 * Imaging: * Chest x-ray showed bibasilar pneumonia and/or edema with large bilateral pleural effusions. * EKG showed atrial fibrillation with a rate of 87 and a QTc of 403, no acute ST segment changes * Renal ultrasound showed bilateral renal cortical thickening, mild bilateral renal scar formation, small right kidney, no hydronephrosis * Chest CT showed extensive mediastinal lymphadenopathy, mild heart failure, moderate to large bilateral pleural effusions, partial visualization of abdominal lymphadenopathy * Urine: Positive for hyaline casts, granular creatinine 152, random chloride 23.9, positive for marijuana * ED intervention: Patient received a total of 12.5 mg midodrine, 3.375 GM Zosyn, 100 mg doxycycline 1 mg Bumex, 250 mL LR. Cardiology was consulted. 09/09/2025 Patient examined bedside still on levo 0.09. He is on BiPAP flow 30 FiO2 50. Was consented for US guided thoracentesis Performed 1.5L out. Patient tolerated the procedure well and breathing is now much improved. Patient's titer levels indicated a false positive for cocci, discontinuing flucanozole. Cards recommended holding lisinopril and digoxin and restarting dilt and home metoprolol. Will hold dilt and metoprolol while patient's BPs are soft and requiring pressors. Discontinuing current antibiotics and starting ceftriaxone 2g IV. Giving LR gentle fluids keeping it running until morning. Holding eliquis for repeat thora tomorrow. Exam Vital Signs Temp Pulse Resp BP Pulse Ox O2 Del Method O2 Flow Rate 98.3 F 93 27 H 96/61 100 BiPAP 30 09/09/25 04:00 09/09/25 06:30 09/09/25 06:30 09/09/25 06:30 09/09/25 06:30 09/08/25 23:33 09/08/25 23:23 FiO2 50 09/09/25 06:27 Narrative Exam General: Resting comfortably Neurologic: GCS 15. Alert and oriented x3, no gross neurological deficit, and patient able to move all 4 extremities. HEENT: Normocephalic, atraumatic, mucous membranes dry. Pupils reactive to light. Heart: Tachycardic, normal S1 and S2, no murmurs. Lungs: mechanical vent sounds, difficult to auscultate. Abdomen: Soft, nondistended, nontender, positive bowel sounds. No guarding or rebound tenderness. Extremities: No edema. 2+ radial and dorsalis pedis pulses bilaterally. Skin: Warm. Dry. No rash or ecchymoses. Objective Labs 09/09/25 04:59 09/09/25 04:59 Labs: Laboratory Results - last 24 hr 09/08/25 09/08/25 09/08/25 14:10 16:20 21:11 WBC 17.6 H RBC 3.36 L Hgb 10.0 L Hct 31.2 L MCV 93 MCH 29.8 MCHC 32.1 RDW Std Deviation 52.5 H Plt Count 489 H D Neut % (Auto) 83 H Lymph % (Auto) 10 Mckenzie % (Auto) 5 Eos % (Auto) 1 Baso % (Auto) 0 Neut # (Auto) 14.5 H Lymph # (Auto) 1.7 Mckenzie # (Auto) 1.0 H Eos # (Auto) 0.1 Baso # (Auto) 0.1 Immature Gran # (Auto) 0.27 H Absolute Nucleated RBC 0.00 Immature Gran % 2 H Nucleated RBC % 0 PT 12.4 H INR 1.2 APTT 29.3 VBG pH 7.52 VBG pCO2 38 VBG pO2 36 VBG O2 Sat (Claribel) 68 L VBG Base Excess 31 H Sodium 136 138 Potassium 5.1 5.0 Chloride 99 98 Carbon Dioxide 25.4 28.9 Anion Gap 12 11 BUN 65 H 76 H Creatinine 3.2 H D 3.3 H Estim Creat Clear Calc 28.7 L 27.8 L eGFR 20 L 20 L BUN/Creatinine Ratio 20 23 H Glucose 113 H 139 H Calculated Osmolality 291 300 H Lactic Acid 2.4 H Calcium 8.6 8.8 Corrected Calcium 9.1 Phosphorus Magnesium 2.4 Total Bilirubin 0.4 AST 54 H ALT 40 Alkaline Phosphatase 211 H Lactate Dehydrogenase 342 H Total Creatine Kinase Troponin I < 0.020 B-Natriuretic Peptide 82 Total Protein 7.8 Albumin 3.4 Globulin 4.4 H Albumin/Globulin Ratio 0.8 L Procalcitonin 0.94 H Ur Collection Type Clean Catch Urine Color Yellow Urine Clarity Hazy Urine pH 5.5 Ur Specific [place] 1.017 Urine Protein Trace Urine Glucose (UA) Negative Urine Ketones Negative Urine Blood Negative Urine Nitrite Negative Urine Bilirubin Negative Urine Urobilinogen (Auto) Negative Ur Leukocyte Esterase Negative Urine RBC < 1 Urine WBC 3 Ur Squamous Epith Cells 3 Urine Bacteria None Hyaline Casts 2 H Granular Casts 1 Ur Culture Indicated? Not Indicated Ur Random Creatinine 152 H Ur Random Sodium 49.1 Ur Random Potassium 43 Ur Random Chloride 23.9 L Ur Random Urea Nitrogn 477.0 Digoxin Urine Opiates Screen Negative Urine Fentanyl Screen Negative Ur Barbiturates Screen Negative U Amphetamin/Meth Scrn Negative U Benzodiazepines Scrn Negative U Cocaine Metab Screen Negative U Marijuana (THC) Screen Positive A 09/09/25 09/09/25 00:41 04:59 WBC 16.8 H RBC 3.15 L Hgb 9.3 L Hct 29.2 L MCV 93 MCH 29.5 MCHC 31.8 RDW Std Deviation 52.7 H Plt Count 367 D Neut % (Auto) 83 H Lymph % (Auto) 9 L Mckenzie % (Auto) 5 Eos % (Auto) 1 Baso % (Auto) 0 Neut # (Auto) 14.0 H Lymph # (Auto) 1.5 Mckenzie # (Auto) 0.9 H Eos # (Auto) 0.1 Baso # (Auto) 0.1 Immature Gran # (Auto) 0.28 H Absolute Nucleated RBC 0.00 Immature Gran % 2 H Nucleated RBC % 0 PT INR APTT VBG pH VBG pCO2 VBG pO2 VBG O2 Sat (Claribel) VBG Base Excess Sodium 138 Potassium 5.0 Chloride 101 Carbon Dioxide 25.6 Anion Gap 11 BUN 68 H Creatinine 3.0 H Estim Creat Clear Calc 30.1 L eGFR 22 L BUN/Creatinine Ratio 23 H Glucose 141 H Calculated Osmolality 297 H Lactic Acid 2.0 Calcium 8.4 Corrected Calcium 9.2 Phosphorus 5.6 H Magnesium 2.4 Total Bilirubin 0.5 AST 36 H ALT 31 Alkaline Phosphatase 202 H Lactate Dehydrogenase Total Creatine Kinase 16 L Troponin I B-Natriuretic Peptide Total Protein 7.2 Albumin 3.0 L Globulin 4.2 H Albumin/Globulin Ratio 0.7 L Procalcitonin Ur Collection Type Urine Color Urine Clarity Urine pH Ur Specific [place] Urine Protein Urine Glucose (UA) Urine Ketones Urine Blood Urine Nitrite Urine Bilirubin Urine Urobilinogen (Auto) Ur Leukocyte Esterase Urine RBC Urine WBC Ur Squamous Epith Cells Urine Bacteria Hyaline Casts Granular Casts Ur Culture Indicated? Ur Random Creatinine Ur Random Sodium Ur Random Potassium Ur Random Chloride Ur Random Urea Nitrogn Digoxin 0.9 Urine Opiates Screen Urine Fentanyl Screen Ur Barbiturates Screen U Amphetamin/Meth Scrn U Benzodiazepines Scrn U Cocaine Metab Screen U Marijuana (THC) Screen ABG Interpretation ABG results: 09/08/25 21:11 VBG pH 7.52 VBG pCO2 38 VBG pO2 36 VBG Base Excess 31 H Quality Measures Quality Measures none Advance care planning discussed with:: other Assessment & Plan Assessment Current Active Medications: Generic Name Dose Route Start Last Admin Trade Name Gladys PRN Reason Stop Dose Admin Acetaminophen 650 mg 09/08/25 17:08 Acetaminophen 325 Mg Tablet PO 10/08/25 17:07 Q6H PRN Fever >101.5 Apixaban 5 mg 09/08/25 21:00 09/08/25 21:42 Apixaban 2.5 Mg Tablet PO 10/08/25 20:59 Not Given On Hold: 09/08/25 21:42 BID DARLENE Bumetanide 1 mg 09/09/25 09:00 Bumetanide Inj 0.25 Mg/Ml Vial 4 Ml IVP 10/09/25 08:59 QDAY DARLENE Diltiazem HCl 240 mg 09/09/25 09:00 Diltiazem Cd 120 Mg Capcr PO 10/09/25 08:59 QDAY DARLENE Doxycycline Hyclate 100 mg 09/08/25 21:00 09/08/25 21:22 Doxycycline 100 Mg Tablet PO 09/15/25 20:59 100 mg BID DARLENE Administration Fluconazole 400 mg 09/09/25 09:00 Fluconazole 100 Mg Tablet PO 09/16/25 08:59 QDAY DARLENE Guaifenesin/Dextromethorphan 1 each 09/08/25 17:59 Guaifenesin/Dm Tablet PO 10/08/25 17:58 BID PRN COUGH Piperacillin/Tazobactam/Dextrose 3.375 gm in 50 mls @ 100 mls/hr 09/08/25 17:12 09/09/25 05:30 Zosyn IV 09/15/25 17:11 100 mls/hr Q8HR DARLENE Administration Protocol Norepinephrine/Dextrose 8 mg in 250 mls @ 9.993 mls/hr 09/08/25 21:36 09/09/25 06:00 Levophed In D5w 8mg/250ml IV 10/08/25 21:35 0.09 mcg/kg/min .Q24H PRN 17.988 mls/hr PER PROTOCOL Titration Protocol 0.05 MCG/KG/MIN Ipratropium [place] 0.5 mg 09/08/25 23:00 09/09/25 06:31 Ipratropium Rt 0.5 Mg/ 2.5 Ml Nebu INH 10/08/25 22:59 0.5 mg Q8HRRT DARLENE Administration Levalbuterol HCl 1.25 mg 09/08/25 23:00 09/09/25 06:31 Levalbuterol Rt 1.25 Mg/0.5 Ml Nebu INH 10/08/25 22:59 1.25 mg Q8HRRT DARLENE Administration Metoprolol Tartrate 100 mg 09/09/25 09:00 Metoprolol Tartrate 25 Mg Tablet PO 10/09/25 08:59 QDAY DARLENE Midodrine 2.5 mg 09/08/25 18:18 09/08/25 19:29 Midodrine 2.5 Mg Tablet PO 10/08/25 18:17 2.5 mg TID PRN Administration SBP<90 and MAP<65 Sodium Chloride 3 ml 12/15/25 17:51 09/08/25 23:07 Sodium Chloride Rt Dominique 0.9% 3 Ml Nebu INH 10/08/25 17:50 3 ml PRN PRN Administration SOLN Plan 65-year-old male past medical history A-fib status [place] [address] 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 Initially he presented after progressively worsening shortness of breath. It was reported the patient was using 3 L at home and required 6 L upon arrival to the ED followed by 13 L oxime mask in order to maintain his saturations around 90. He was also found to have a creatinine of 3.2. The patient's MAP was not maintaining above 65. He was maintaining a MAP less than 60 after receiving 12.5 mg of midodrine and gentle fluid resuscitation of 250 mL. Unable to administer further IV fluid as patient has bilateral crackles and is on high flow nasal cannula. The patient was transferred to ICU for pressor support. Neuro No active problems Cardiovasc: #Shock - resolving Ddx distributive iso of sepsis source is most likely superimposed bacterial pneumonia, may be secondary to, or contributed by, decreased fluid intake reflected by creatinine of 3.2, less likely hypovolemic shock, hemoglobin 10.0 and stable, no suspicion for active bleeding, less likely obstructive (would require massive pleural effusions increasing intrathoracic pressure decreasing preload). Dx 3/4 SIRS with lactic acidosis and suspected HR >90, RR >20, WBC 17.6, LA 2.4. blood cx x2, urine cx, CXR, monitor WBC Rx Gentle IVF LR 100-125ml/hr overnight. Ceftriaxone 2g IV QD (09/09-), levophed #A-fib #Sick sinus syndrome status post pacemaker placement - stable Dx CHADsVAS score 4 HAS BLED score 2, EKG showed atrial fibrillation with a rate of 87 and a QTc of 403, no acute ST segment changes Rx: Patient takes metoprolol (hold due to low BPs), diltiazem (hold due to low BPs), and Eliquis (hold for thoracentesis tomorrow. Keep potassium over 4, magnesium over 2. Cardiology consulted RRx: BPs currently soft, on levo 0.09, can consider phenylephrine or vasopressin with amio if A fib worsens (HR >150 chest pain, palpitations) #HFpEF EF 55-60% (02/2023) - stable Dx Echo on 03/17/2025 showed EF 55-60%. Diastolic function difficult to evaluate due to A-fib. Severe biatrial dilation. Rx Strict ins and outs, holding home meds (lisinopril and digoxin) due to VIOLETA Pulm: #Acute hypoxic respiratory failure - resolving Ddx chylothorax, superimposed bacterial infection, compression atelectasis 2/2 bilateral pleural effusions, or empyema formation Dx chest ct, US guided thora (chylous) pleural fluid analysis Rx Bipap, high flow nasal cannula, US thoracentesis, holding diuresis, ceftriaxone 3g IV (09/09), Guaifenesin p.o. 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 05/25/25 Chest CTA - Extensive tumor mediastinal lymphadenopathy and biilateral metastatic pulmonary nodules. At least 10 subcentimeter metastatic pulmonary nodules. Chest CT 09/08/2025 again noted extensive mediastinal lymphadenopathy Rx: Requesting outside medical records Renal: #VIOLETA Ddx volume depletion/dehydration, worsening Castleman's Dx FUP renal panels, renal US (bilateral renal cortical thickening, mild bilateral renal scar formation, small right kidney, no hydronephrosis) Rx Gentle fluids LR 100-125 ml/hr, holding diuresis, avoid nephrotoxic agents, renally dose medications GI: No active problems Endocrine: #Pre-diabetes Dx A1c 06/30/2025 6.2; blood glucose 120-140. Not on insulin at home Rx: No intervention at this time #Castleman syndrome Established diagnosis, patient follows up outpatient. Patient was receiving infusions of infliximab which have been paused for the past 3 months due to an abscess on his buttock that has been followed with wound care. Wound care recently cleared the patient to resume his infusions. Patient unable to resume IL-6 inhibitor infusion due to positive cocci result --> titers show false positive, therefore stopping fluconazole. Can continue IL-6 infusions when discharged. Rx No treatment at this time Heme/Onc: #Chronic normocytic anemia Ddx May be secondary to anemia of chronic disease secondary to Castleman syndrome. MCV is normal, reinforces anemia of chronic disease versus nutritional deficiency Dx trend with CBC Rx No direct intervention at this time RRx: if worsening consider iron panel, or work up for GI blood loss ID #Cocci serology positive (false positive) - resolved Dx positive for cocci IgM on 08/30/2025 titers indicate false positive Rx discontinuing flucanozole Skin: No active problems. ICU Maintenance: DVT ppx: Holding, pending possible thora GI ppx: none Diet: Low fat diet IV lines: Peripheral IVs Code status: Full code Dispo: ICU for pressor support, currently receiving BiPAP, pending possible thoracentesis on L side tomorrow Patient was seen and discussed with my attending physician Dr. Villar and my senior resident Dr. Ernesto HONG PGY-2. Vasyl Gutierrez PGY-1.
--- NOTE | 2025-09-09 08:41 | ESCONSULT_ITS ---
HPI Data of Consult Consult date: 09/09/25 Requesting Physician: Miguel Angel Gardner MD Admitting Provider: Miguel Angel Gardner MD Attending Provider: Miguel Angel Gardner MD Primary Care Provider: Physician No Primary/Family Consult Narrative Reason for consult: VIOLETA History of present illness: Mr. Pena is a 65-year-old male past medical history A-fib status post pacemaker [place] [address] 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 The patient was discharged on 09/04/2025 following treatment of superimposed pneumonia on a right sided pleural effusion. It was reported that at that time the thoracentesis was unable to be performed due to anatomic reasons. He was discharged on home oxygen and continued on fluconazole with a positive Coccidioides IgM antibody. The patient was advised to follow up with his PCP for further evaluation of Coccidioides IgG and to resume treatment for management once the results were available. However, the patient reported that the PCP was unable to obtain IgG levels. Of note, the patient has a history of Castleman syndrome and was receiving infusions of infliximab which have been paused for the past 3 months due to an abscess on his buttock that has been followed with wound care. Wound care recently cleared the patient to resume his infusions. Today he presented after progressively worsening shortness of breath. It was reported the patient was using 3 L at home and required 6 L upon arrival to the ED followed by 13 L oxime mask in order to maintain his saturations around 90. He was also found to have a creatinine of 3.2 (baseline 1.0-1.2). The patient's MAP was not maintaining above 65. He was maintaining a MAP less than 60 after receiving 12.5 mg of midodrine and gentle fluid resuscitation of 250 mL. Lactate level had started going up, 2.4. Unable to administer further IV fluid as patient has bilateral crackles and is on high flow nasal cannula. The patient was transferred to ICU for pressor support. Nephrology consulted by hospitalist team for VIOLETA. 09/09/25: Patient seen and assessed in ICU. On BiPAP. Denies recent diarrhea or vomiting. BUN 68, creatinine improved to 3.0 from 3.2 (baseline 1.0-1.3 per previous admission). Home medications include Bumex 1 mg daily, spiranolactone 25 mg daily, lisinopril 20 mg daily, and digoxin 125 mcg daily. Does not see a manhole builder, no history of renal conditions. UA showed trace urine protein and hyaline casts. FeNa and FeUrea indicative of pre-renal azotemia, likely ATN. cc:: cc: Miguel Angel Gardner MD Review of Systems Review of Systems Narrative Review of Systems: on bipap Exam Vital Signs Temp Pulse Resp BP Pulse Ox O2 Del Method O2 Flow Rate 98.3 F 93 27 H 96/61 100 BiPAP 30 09/09/25 04:00 09/09/25 06:30 09/09/25 06:30 09/09/25 06:30 09/09/25 06:30 09/08/25 23:33 09/08/25 23:23 FiO2 50 09/09/25 06:27 Narrative Exam Physical Exam General: Awake and in no acute distress. On BiPAP. HEENT: Normocephalic, atraumatic, mucous membranes dry. Heart: Irregular rate and rhythm, normal S1 and S2, no murmurs appreciated. Lungs: Decreased breath sounds bilaterally. Abdomen: Soft, nondistended, nontender, positive bowel sounds. No guarding or rebound tenderness. Neurologic: No gross neurological deficit, and patient able to move all 4 extremities. Extremities: No edema. Skin: No rash or ecchymoses. Results Labs 09/10/25 04:49 09/10/25 04:49 Labs: Short CBC 09/08/25 09/09/25 Range/Units 14:10 04:59 WBC 17.6 H 16.8 H (3.8-10.6) Thou/mm3 Hgb 10.0 L 9.3 L (13.5-16.0) g/dL Hct 31.2 L 29.2 L (41.0-53.0) % Plt Count 489 H D 367 D (140-440) Thou/mm3 BMP 09/08/25 09/08/25 09/09/25 14:10 21:11 04:59 Sodium 136 138 138 Potassium 5.1 5.0 5.0 Chloride 99 98 101 Carbon Dioxide 25.4 28.9 25.6 BUN 65 H 76 H 68 H Creatinine 3.2 H D 3.3 H 3.0 H Glucose 113 H 139 H 141 H Calcium 8.6 8.8 8.4 Cardiac Enzymes 09/08/25 09/09/25 Range/Units 14:10 04:59 Total Creatine Kinase 16 L (34-171) U/L Troponin I < 0.020 (0.0-0.045) ng/mL Liver Function 09/08/25 09/09/25 Range/Units 14:10 04:59 Total Bilirubin 0.4 0.5 (0.3-1.2) mg/dL AST 54 H 36 H (0-34) U/L ALT 40 31 (10-49) U/L Alkaline Phosphatase 211 H 202 H (46-116) U/L Albumin 3.4 3.0 L (3.4-4.8) gm/dL Urine 09/08/25 Range/Units 16:20 Urine Color Yellow (Lt Yel-Yel) Urine Clarity Hazy (Clear/Hazy) Urine pH 5.5 (5.0-7.0) Ur Specific [place] 1.017 (1.001-1.035) Urine Protein Trace (Neg - Trace) Urine Glucose (UA) Negative (Negative) ABG Interpretation ABG results: 09/08/25 21:11 VBG pH 7.52 VBG pCO2 38 VBG pO2 36 VBG Base Excess 31 H Quality Measures Quality Measures none Advance care planning discussed with:: patient Medications Home Medications and Allergies Home Medications ?Medication ?Instructions ?Recorded ?Confirmed ?Type apixaban 5 mg tablet (Eliquis) 5 mg PO BID 12/12/23 History lisinopril 20 mg tablet 20 mg PO DAILY 03/16/2503/19 History digoxin 125 mcg (0.125 mg) tablet 0.125 mg PO DAILY 08/30/25 History methotrexate sodium 2.5 mg tablet 15 mg PO .Q WEEKLY 0 05/26/25 08/30/25 History Held on 09/03/25. Instructions: Hold until you follow-up with your PCP/oncologist metoprolol tartrate 100 mg tablet 100 mg PO Q12H 05/2608/30/25 History diltiazem HCl 240 mg 240 mg PO QDAY 08/30/2503/19 History capsule,extended release 24 hr folic acid 1 mg tablet 1 mg PO QDAY 08/30/25 History ondansetron 4 mg disintegrating 4 mg PO TID 08/30/25 1 10/31/24 History tablet Held on 09/03/25. Instructions: Hold until you follow-up with your PCP due to prolonged QTc spironolactone 25 mg tablet 25 mg PO QDAY 08/30/2503/19 History Allergies Allergy/AdvReac Type Severity Reaction Status Date / Time No Known Allergies Allergy Verified 09/08/25 13:28 Visit Medications Acetaminophen (Acetaminophen 325 Mg Tablet) 650 mg PO Q6H PRN PRN Reason: Fever >101.5 Stop: 10/08/25 17:07 Apixaban (Apixaban 2.5 Mg Tablet) 5 mg PO BID DARLENE On Hold: 09/08/25 21:42 Stop: 10/08/25 20:59 Last Admin: 09/08/25 21:42 Dose: Not Given Bumetanide (Bumetanide Inj 0.25 Mg/Ml Vial 4 Ml) 1 mg IVP QDAY [facility] Stop: 10/09/25 08:59 Diltiazem HCl (Diltiazem Cd 120 Mg Capcr) 240 mg PO QDAY [facility] Stop: 10/09/25 08:59 Doxycycline Hyclate (Doxycycline 100 Mg Tablet) 100 mg PO BID DARLENE Stop: 09/15/25 20:59 Last Admin: 09/08/25 21:22 Dose: 100 mg Fluconazole (Fluconazole 100 Mg Tablet) 400 mg PO QDAY [facility] Stop: 09/16/25 08:59 Guaifenesin/Dextromethorphan (Guaifenesin/Dm Tablet) 1 each PO BID PRN PRN Reason: COUGH Stop: 10/08/25 17:58 Piperacillin/Tazobactam/Dextrose (Zosyn) 3.375 gm in 50 mls @ 100 mls/hr IV Q8HR DARLENE; Protocol Stop: 09/15/25 17:11 Last Admin: 09/09/25 05:30 Dose: 100 mls/hr Norepinephrine/Dextrose (Levophed In D5w 8mg/250ml) 8 mg in 250 mls @ 9.993 mls/hr IV .Q24H PRN; Protocol PRN Reason: PER PROTOCOL Stop: 10/08/25 21:35 Last Titration: 09/09/25 06:00 Dose: 0.09 mcg/kg/min, 17.988 mls/hr Ipratropium Allison (Ipratropium Rt 0.5 Mg/ 2.5 Ml Nebu) 0.5 mg INH Q8HRRT [facility] Stop: 10/08/25 22:59 Last Admin: 09/09/25 06:31 Dose: 0.5 mg Levalbuterol HCl (Levalbuterol Rt 1.25 Mg/0.5 Ml Nebu) 1.25 mg INH Q8HRRT [facility] Stop: 10/08/25 22:59 Last Admin: 09/09/25 06:31 Dose: 1.25 mg Metoprolol Tartrate (Metoprolol Tartrate 25 Mg Tablet) 100 mg PO QDAY [facility] Stop: 10/09/25 08:59 Midodrine (Midodrine 2.5 Mg Tablet) 2.5 mg PO TID PRN PRN Reason: SBP<90 and MAP<65 Stop: 10/08/25 18:17 Last Admin: 09/08/25 19:29 Dose: 2.5 mg Sodium Chloride (Sodium Chloride Rt Dominique 0.9% 3 Ml Nebu) 3 ml INH PRN PRN PRN Reason: SOLN Stop: 10/08/25 17:50 Last Admin: 09/08/25 23:07 Dose: 3 ml Discontinued Medications Albuterol/Ipratropium (Albuterol/Ipratropium (Duoneb) Rt Dominique 3 Ml Nebu) 3 ml INH Q4HRRT [facility] Stop: 10/08/25 18:59 Bumetanide (Bumetanide Inj 0.25 Mg/Ml Vial 4 Ml) 1 mg IVP X1 ONE Stop: 09/08/25 14:00 Last Admin: 09/08/25 14:32 Dose: 1 mg Piperacillin/Tazobactam/Dextrose (Zosyn) 3.375 gm in 50 mls @ 100 mls/hr IV X1 ONE; Protocol Stop: 09/08/25 16:06 Last Infusion: 09/08/25 17:58 Dose: Infused Lactated Ringer's (Lactated Ringers) 250 mls @ 999 mls/hr IV .Q16M ONE Stop: 09/08/25 20:01 Last Infusion: 09/08/25 20:16 Dose: Infused Midodrine (Midodrine 2.5 Mg Tablet) 2.5 mg PO TID ONE Stop: 09/08/25 18:18 Last Admin: 09/08/25 20:11 Dose: Not Given Midodrine (Midodrine 5 Mg Tablet) 5 mg PO X1 ONE Stop: 09/08/25 19:47 Last Admin: 09/08/25 20:13 Dose: Not Given Midodrine (Midodrine 2.5 Mg Tablet) 2.5 mg PO X1 ONE Stop: 09/08/25 20:01 Last Admin: 09/08/25 20:13 Dose: Not Given Midodrine (Midodrine 5 Mg Tablet) 10 mg PO X1 ONE Stop: 09/08/25 20:03 Last Admin: 09/08/25 20:08 Dose: 10 mg Sevelamer Carbonate (Sevelamer Carbonate 800 Mg Tablet) 800 mg PO X1 ONE Stop: 09/09/25 08:25 Sodium Chloride (Sodium Chloride Rt 10% 15 Ml Nebu) 5 ml INH X1 ONE Stop: 09/08/25 18:03 Last Admin: 09/09/25 00:13 Dose: Not Given Assessment & Plan Plan Patient is a 65 year old male with PMH of A-fib status [place]emaker [place] [address] Marquez, hypertension, HFpEF with EF 55-60%, and Castleman syndrome who presented with worsening shortness of breath, admitted for management of AHRF. Upgraded to ICU for hypotension requiring pressor support. Nephrology consulted for VIOLETA. #VIOLETA #Pre-renal azotemia likely ATN secondary to overdiuresis - BUN 65, creatinine 3.2 on admission, baseline 1.0-1.3. Does not follow manhole builder or have history of renal problems - Appears hypovolemic on exam. - Creatinine improved to 3.0. S/p Bumex 1 mg IV x1 and LR 250 bolus in ED. - Creatinine clearance 30.1 - UA showed hyaline casts with trace protein - Renal US showed small right kidney with bilateral renal cortical thinning and mild bilateral scar formation, no hydronephrosis. - FeNa inaccurate as patient has been on diuretics. FeUrea 13.6% indicating pre- renal disease. Plan: - Gentle IVF resuscitation to avoid fluid overload - Avoid nephrotoxic agents - Renally dose medications - Strict INOs #Hyperphosphatemia - Phosphorus 5.6 - In setting of VIOLETA Plan: - Continue to monitor, consider sevelamer if worsens Thank you for your consultation, please do not hesitate to reach out if you have any question or concern Patient plan of care was discussed with the attending physician, Dr. Barakat. Soraya Alejandro DO, PGY-1 Attending Provider Attestation/Addendum Patient seen and examined with resident physician Dr. Alejandro. Note reviewed, agree with findings and recommendations. Patient currently seen in ICU. On BiPAP. Clinically looks rather hypovolemic. He has a history of Castleman syndrome. Continue with gentle IV fluids. Will monitor urine output, creatinine closely. Thank you Dr. Villar for allowing me to participate in the care of Mr. Pena
--- NOTE | 2025-09-09 09:27 | ECHO_ITS ---
Patient Info Name: Albaro Pena Age: 65 years : 1960 Gender: Male Ht: 185 cm Wt: 102 kg BSA: 2.31 m2 BP: 95 / 71 mmHg HR: 100 bpm Exam Date: 09/09/2025 12:43 PM Admit Date: 09/08/2025 Site: [facility] Room Number: 259 Patient Status: I Technical Quality: Fair Exam Type: CA echo doppler complete Shearer Operator: Michelle Landeros Ordering Physician: Surya Rao Study Info Indications r/o HF - Primary Location: S2SX Left Ventricular Outflow Tract Name Value Normal LVOT 2D LVOT Diameter 2.3 cm LVOT Doppler LVOT Peak Velocity 92 cm/s LVOT Mean Gradient 2 mmHg LVOT VTI 15 cm LVOT VTI/AV VTI Ratio 0.5 LVOT Stroke Volume 61 ml Pulmonic Valve Name Value Normal PV Doppler PV Peak Velocity 109 cm/s Mitral Valve Name Value Normal MV Doppler MV Decel [facility] 390 cm/s2 MV PHT 55 ms MV Area (PHT) 4.0 cm2 4.0-5.0 MV Diastolic Function MV E Peak Velocity 74 cm/s MV A Peak Velocity 63 cm/s MV E/A 1.2 MV Annular TDI MV Septal e' Velocity 13.4 cm/s MV E/e' (Septal) 5.5 MV Lateral e' Velocity 17.0 cm/s MV E/e' (Lateral) 4.4 MV e' Average 15.20 cm/s MV E/e' (Average) 5.0 Tricuspid Valve Name Value Normal TV Regurgitation Doppler TR Peak Velocity 269 cm/s Estimated PAP/RSVP RA Pressure 8 mmHg <=5 PA Systolic Pressure 37 mmHg <36 RV Systolic Pressure 37 mmHg <36 Aortic Valve Name Value Normal AV 2D/MM AV Cusp Sep (MM) 1.0 cm AV Doppler AV Peak Velocity 232 cm/s AV Mean Gradient 11 mmHg AV VTI 30 cm AV Area (Cont Eq VTI) 2.0 cm2 >=3.0 AV Area (Cont Eq Rodolfo) 1.6 cm2 AV DI (Rodolfo) 0.39 AV Regurgitation 2D LVOT Area 4.2 cm2 Ventricles Name Value Normal LV Dimensions 2D/MM IVS Diastolic Thickness (2D) 0.6 cm 0.6-1.0 LVID Diastole (2D) 5.2 cm 4.2-5.8 LVIW Diastolic Thickness (2D) 0.9 cm 0.6-1.0 LVID Systole (2D) 3.7 cm 2.5-4.0 LVOT Diameter 2.3 cm LV Mass (2D Cubed) 133.85 g 88.00-224.00 LV Mass Index (2D Cubed) 58 g/m2 49-115 Relative Wall Thickness (2D) 0.35 <=0.42 IVS/LVIW Diastolic Thickness (2D) 0.67 0.00-1.50 LV Fractional Shortening/Ejection Fraction 2D/MM LV Fractional Shortening (2D) 29 % 25-43 LV EF (2D Teichholz) 55 % Atria Name Value Normal LA Dimensions LA Volume (4C A-L) 68 ml Left Ventricle Left ventricular chamber dimension is normal. Left ventricular systolic function is normal with visually estimated ejection fraction of 50-55%. There is normal geometry noted in the left ventricle. Left ventricular segmental wall motion is normal. There is grade I diastolic dysfunction in the left ventricle. Right Ventricle Right ventricular chamber dimension is normal. Right ventricular systolic function is normal. Left Atrium Left atrial chamber dimension is severely enlarged. Right Atrium Right atrial chamber dimension is severely enlarged. Aortic Valve The aortic valve is trileaflet. There is moderate aortic valve sclerosis. There is no aortic valve stenosis with a peak velocity of 232 cm/s, mean gradient of 11 mmHg, and aortic valve area of 2.0 cm2. There is trace aortic valve regurgitation. Pulmonic Valve The pulmonic valve is normal. There is no pulmonic valve stenosis. There is no pulmonic regurgitation. Mitral Valve The mitral valve has a calcified annulus. There is no mitral valve stenosis. There is moderate mitral valve regurgitation. Tricuspid Valve The tricuspid valve leaflets are normal. There is no tricuspid valve stenosis. There is moderate tricuspid valve regurgitation. Pulmonary hypertension, estimated pulmonary arterial systolic pressure is 37 mmHg and systemic blood pressure of 95 mmHg in systole. Pericardium/Pleural The pericardium appears normal. There is no pericardial effusion. No pleural effusion visualized. Inferior Vena Cava Dilated inferior vena cava with >50% collapse upon inspiration consistent with normal right atrial pressure, 8 mmHg. Aorta The aortic measurements are indexed to age and body surface area. The aortic root at the sinus of Valsalva is not well visualized. The prox ascending aorta is not well visualized. Summary 1. Left ventricle size is normal and systolic function is normal. Estimated ejection fraction is 50-55%. There is indeterminate diastolic dysfunction due to presence of pacemaker. 2. The right ventricle is not well visualized to assess function. Pacer wire noted in RV and LV. 3. There is moderate aortic valve sclerosis with no stenosis. Vmax 2.32 m/s. Trace AI. 4. Mild MAC. Moderate MR and TR. Severe biatrial dilatation.. Dilated IVC. 5. Prior study from 03/17/2025. Report Signatures Finalized by Frank Prater on 09/09/2025 06:51 PM
[2025-09-09] MEDS: SEVELAMER CARBONATE 800 MG TABLET PO (09:29)
[2025-09-09] MEDS: DOXYCYCLINE 100 MG TABLET PO (09:29)
[2025-09-09] MEDS: RINGERS LACTATED 1000 ML 1,000 ML 125 ML IV (09:40)
--- NOTE | 2025-09-09 11:11 | XR_ITS ---
EXAMINATION: AP chest single view TECHNIQUE: AP portable semiupright chest single view Date and time: September 09, 2025, 1127 hours, comparison September 08, 2025 1430 hours INDICATIONS: Post thoracentesis FINDINGS: No pneumothorax post thoracentesis Mild enlargement cardiac contour with prominent vascular congestion Unipolar ventricular lead satisfactory position Mild to moderate bilateral pleural effusions Edema and/or pneumonia at the lung bases IMPRESSION: No pneumothorax post thoracentesis
[2025-09-09] MEDS: cefTRIAXone/D5w 2gm 2 GM/50 ML BAG IV (11:19)
--- NOTE | 2025-09-09 11:28 | PD.RESPROC ---
PROCEDURES: Procedure Date / Time 09/09/25 11:00 Procedural Time Out Time out performed: Yes Thoracentesis Indication(s): symptomatic Pleural Effusion Informed consent obtained from: patient Time out done, and the following verified: correct patient, side and site, procedure, patient position and implants and/or equipment Ultrasound used: Yes Procedure location: rt. post pleural space Amount pleural fluid removed (ml): 1,500 EBL(ml): 2 Procedure comment: Patient tolerated procedure well.
[2025-09-09] MEDS: Norepinephrine/D5W 8mg/250ml 8 MG/250 ML BAG 17.988 MG IV (12:02)
[2025-09-09 12:03] LABS: Misc Send Out* See Sep Rpt
[2025-09-09 12:59] LABS: Pleural Fluid Appearance Cloudy; Pleural Fluid Color Red; Pleural Fluid RBC 30000 /cmm; Pleural Fluid WBC 4710 /cmm
[2025-09-09 13:00] LABS: Pleural Fluid Mononuclear 85.3 %; Pleural Fluid Polynuclear 14.7 %
[2025-09-09 13:01] LABS: Amylase,Pleural Fluid 29 IU/L; Glucose,Pleural Fluid 125 mg/dL; LDH,Pleural Fluid 303 IU/L; Protein Total,Pleural Fluid 4.2 g/dL
--- NOTE | 2025-09-09 15:26 | ESPR_ITS ---
<Statement entered by Kervin Marquez MD - 09/11/25 23:48> I personally examined evaluate the patient with the resident physician patient is doing little better underwent paracentesis the right side successfully patient blood pressure on the low side holding most of the drugs including lisinopril diltiazem metoprolol and Bumex as patient appears to be clinically dry. Agree with the treatment plan recommendation as documented with PGY 2 Dr. Cline will continue to monitor the patient possibly require left sided thoracentesis. Clinically he is not in heart failure no need for diuretics and maybe even hydrate the patient as tolerated. Documentation for date of: 09/09/25 Subjective Subjective Interval history: Patient is a 65-year-old male past medical historyA-fib, status post pacemaker placement (2006, with [address] 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 Patient was recently discharged from hospital on 09/04 after being treated for volume overload and A- fib. He is returning now with worsening symptoms. He noted that at home, his oxygen saturation was in the 80s while on 3 L of nasal cannula, and he was unaware that he could increase the flow rate. Complains of feeling dehydrated there is concern for overdiuresis from his last admission as creatinine is elevated at 3.2. Repeat chest imaging shows worsening bilateral pleural effusions. Patient was desaturating on 72% on room air. Placed on 6 L face mask ultimately improved to 93%. At bedside he was on room air saturations 86%. EKG showed controlled rate 87 irregular rhythm atrial fibrillation. Sodium 136, potassium 5.1, BUN 65, creatinine 3.2 (baseline appears to be around 1.2). Troponins were negative BNP normal limits. On physical exam he does not appear to be fluid overloaded. Recommend that patient be allowed to have some fluid intake due to VIOLETA in setting of possible overdiuresis. Due to soft blood pressure recommend holding digoxin and lisinopril. Okay to continue diltiazem, metoprolol tartrate, spironolactone for proper rate control. 09/09: Patient examined at bedside. He underwent right-sided thoracentesis today. Approximately 1500 cc removed. Pleural fluid studies were consistent with an exudative effusion per lights criteria. Possibly due to his underlying Castleman syndrome. Symptoms have significantly improved with less shortness of breath. Telemetry was reviewed he remains in atrial fibrillation rate controlled around 90s. Patient remains on Levophed however has been titrated down slightly since yesterday. Creatinine down trended 3.0. Primary care team will most likely repeat thoracentesis on left. Continue to hold Bumex, metoprolol, digoxin, lisinopril, and dilt due to hypotension. Resume slowly as BP improves. Exam Vital Signs Temp Pulse Resp BP Pulse Ox O2 Del Method O2 Flow Rate 98.3 F 115 H 20 92/59 L 98 BiPAP 4 09/09/25 04:00 09/09/25 15:07 09/09/25 15:07 09/09/25 13:00 09/09/25 15:07 09/08/25 23:33 09/09/25 15:07 FiO2 50 09/09/25 06:27 Narrative Exam General: Alert and oriented x3. No acute distress, cooperative HEENT: NCAT, No JVD noted. Mucosa moist. Pupils are equal and reactive to light bilaterally Cardiovascular: Normal S1 and S2. Regular rate and rhythm. Respiratory: Lungs are clear to auscultation bilaterally. No wheezing or crackles heard. Abdomen: Soft, nontender, not distended, normal bowel sounds. Skin: Warm to touch, dry, no rashes noted Musculoskeletal: No gross injuries. Able to move all 4 extremities. No pitting edema Neuro: Alert and oriented x3. No focal neuro deficits. Psych: Normal affect and mood Objective Labs 09/09/25 04:59 09/09/25 04:59 Labs: Laboratory Results - last 24 hr 09/08/25 09/08/25 09/09/25 16:20 21:11 00:41 WBC RBC Hgb Hct MCV MCH MCHC RDW Std Deviation Plt Count Neut % (Auto) Lymph % (Auto) [place] % (Auto) Eos % (Auto) Baso % (Auto) Neut # (Auto) Lymph # (Auto) [place] # (Auto) Eos # (Auto) Baso # (Auto) Immature Gran # (Auto) Absolute Nucleated RBC Immature Gran % Nucleated RBC % VBG pH 7.52 VBG pCO2 38 VBG pO2 36 VBG O2 Sat (Claribel) 68 L VBG Base Excess 31 H Sodium 138 Potassium 5.0 Chloride 98 Carbon Dioxide 28.9 Anion Gap 11 BUN 76 H Creatinine 3.3 H Estim Creat Clear Calc 27.8 L eGFR 20 L BUN/Creatinine Ratio 23 H Glucose 139 H Calculated Osmolality 300 H Lactic Acid 2.4 H 2.0 Calcium 8.8 Corrected Calcium Phosphorus Magnesium Total Bilirubin AST ALT Alkaline Phosphatase Total Creatine Kinase Total Protein Albumin Globulin Albumin/Globulin Ratio Procalcitonin 0.94 H Ur Collection Type Clean Catch Urine Color Yellow Urine Clarity Hazy Urine pH 5.5 Ur Specific [place] 1.017 Urine Protein Trace Urine Glucose (UA) Negative Urine Ketones Negative Urine Blood Negative Urine Nitrite Negative Urine Bilirubin Negative Urine Urobilinogen (Auto) Negative Ur Leukocyte Esterase Negative Urine RBC < 1 Urine WBC 3 Ur Squamous Epith Cells 3 Urine Bacteria None Hyaline Casts 2 H Granular Casts 1 Ur Culture Indicated? Not Indicated Ur Random Creatinine 152 H Ur Random Sodium 49.1 Ur Random Potassium 43 Ur Random Chloride 23.9 L Ur Random Urea Nitrogn 477.0 Pleural Color Pleural Appearance Pleural WBC Pleural RBC Pleural Polynuclear WBC Pleural Mononuclear WBC Pleural Total Protein Pleural LDH Pleural Glucose Pleural Amylase Digoxin Urine Opiates Screen Negative Urine Fentanyl Screen Negative Ur Barbiturates Screen Negative U Amphetamin/Meth Scrn Negative U Benzodiazepines Scrn Negative U Cocaine Metab Screen Negative U Marijuana (THC) Screen Positive A 09/09/25 09/09/25 04:59 11:15 WBC 16.8 H RBC 3.15 L Hgb 9.3 L Hct 29.2 L MCV 93 MCH 29.5 MCHC 31.8 RDW Std Deviation 52.7 H Plt Count 367 D Neut % (Auto) 83 H Lymph % (Auto) 9 L [place] % (Auto) 5 Eos % (Auto) 1 Baso % (Auto) 0 Neut # (Auto) 14.0 H Lymph # (Auto) 1.5 [place] # (Auto) 0.9 H Eos # (Auto) 0.1 Baso # (Auto) 0.1 Immature Gran # (Auto) 0.28 H Absolute Nucleated RBC 0.00 Immature Gran % 2 H Nucleated RBC % 0 VBG pH VBG pCO2 VBG pO2 VBG O2 Sat ([place]ibel) VBG Base Excess Sodium 138 Potassium 5.0 Chloride 101 Carbon Dioxide 25.6 Anion Gap 11 BUN 68 H Creatinine 3.0 H Estim Creat Clear Calc 30.1 L eGFR 22 L BUN/Creatinine Ratio 23 H Glucose 141 H Calculated Osmolality 297 H Lactic Acid Calcium 8.4 Corrected Calcium 9.2 Phosphorus 5.6 H Magnesium 2.4 Total Bilirubin 0.5 AST 36 H ALT 31 Alkaline Phosphatase 202 H Total Creatine Kinase 16 L Total Protein 7.2 Albumin 3.0 L Globulin 4.2 H Albumin/Globulin Ratio 0.7 L Procalcitonin Ur Collection Type Urine Color Urine Clarity Urine pH Ur Specific [place] Urine Protein Urine Glucose (UA) Urine Ketones Urine Blood Urine Nitrite Urine Bilirubin Urine Urobilinogen (Auto) Ur Leukocyte Esterase Urine RBC Urine WBC Ur Squamous Epith Cells Urine Bacteria Hyaline Casts Granular Casts Ur Culture Indicated? Ur Random Creatinine Ur Random Sodium Ur Random Potassium Ur Random Chloride Ur Random Urea Nitrogn Pleural Color Red Pleural Appearance Cloudy Pleural WBC 4710 Ple[place] RBC 02571 Pleural Polynuclear WBC 14.7 Pleural Mononuclear WBC 85.3 Pleural Total Protein 4.2 Pleural LDH 303 Pleural Glucose 125 Pleural Amylase 29 Digoxin 0.9 Urine Opiates Screen Urine Fentanyl Screen Ur Barbiturates Screen U Amphetamin/Meth Scrn U Benzodiazepines Scrn U Cocaine Metab Screen U Marijuana (THC) Screen ABG Interpretation ABG results: 09/08/25 21:11 VBG pH 7.52 VBG pCO2 38 VBG pO2 36 VBG Base Excess 31 H Quality Measures Quality Measures none Advance care planning discussed with:: patient Assessment & Plan Assessment Current Active Medications: Generic Name Dose Route Start Last Admin Trade Name Freq PRN Reason Stop Dose Admin Acetaminophen 650 mg 09/08/25 17:08 Acetaminophen 325 Mg Tablet PO 10/08/25 17:07 Q6H PRN Fever >101.5 Apixaban 5 mg 09/08/25 21:00 09/08/25 21:42 Apixaban 2.5 Mg Tablet PO 10/08/25 20:59 Not Given On Hold: 09/08/25 21:42 BID DARLENE Bumetanide 1 mg 09/09/25 09:00 Bumetanide Inj 0.25 Mg/Ml Vial 4 Ml IVP 10/09/25 08:59 On Hold: 09/09/25 09:00 QDAY DARLENE Diltiazem HCl 240 mg 09/09/25 09:00 Diltiazem Cd 120 Mg Capcr PO 10/09/25 08:59 On Hold: 09/09/25 09:00 QDAY DARLENE Guaifenesin/Dextromethorphan 1 each 09/08/25 17:59 Guaifenesin/Dm Tablet PO 10/08/25 17:58 BID PRN COUGH Norepinephrine/Dextrose 8 mg in 250 mls @ 9.993 mls/hr 09/08/25 21:36 09/09/25 12:02 Levophed In D5w 8mg/250ml IV 10/08/25 21:35 0.09 mcg/kg/min .Q24H PRN 17.988 mls/hr PER PROTOCOL Administration Protocol 0.05 MCG/KG/MIN Ceftriaxone Sodium/Dextrose 2 gm in 50 mls @ 100 mls/hr 09/09/25 09:29 09/09/25 11:19 Rocephin/D5w 2gm IV 09/16/25 09:28 100 mls/hr QDAY DARLENE Administration Lactated Ringer's 1,000 mls @ 125 mls/hr 09/09/25 09:29 09/09/25 09:40 Lactated Ringers IV 09/09/25 17:28 125 mls/hr .Q8H ONE Administration Ipratropium White 0.5 mg 09/08/25 23:00 09/09/25 15:07 Ipratropium Rt 0.5 Mg/ 2.5 Ml Nebu INH 10/08/25 22:59 0.5 mg Q8HRRT DARLENE Administration Levalbuterol HCl 1.25 mg 09/08/25 23:00 09/09/25 15:07 Levalbuterol Rt 1.25 Mg/0.5 Ml Nebu INH 10/08/25 22:59 1.25 mg Q8HRRT DARLENE Administration Sodium Chloride 3 ml 09/08/25 17:51 09/08/25 23:07 Sodium Chloride Rt Dominique 0.9% 3 Ml Nebu INH 10/08/25 17:50 3 ml PRN PRN Administration SOLN Plan Patient is 65-year-old male with past medical history of A-fib, status post pacemaker placement (2006, with [address] 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 Admitted for acute hypoxic respiratory failure secondary to pleural effusion. Cardiology consulted for atrial fibrillation and concern for heart failure exacerbation. 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 Denies fever, chills, recent sick contact. Patient worsening dypnea likely due to bilateral pleural effusion. Patient work of breathing will likely improve after getting therapeutic thoracentesis. Chest x-ray showed chest x-ray bibasilar pneumonia/or edema large bilateral pleural effusion. Mild enlargement cardiac contour with prominent vascular congestion. PSI/PORT score 137 points- Risk Class V (high risk) , 27.0-29.2% mortality.? 09/09--right thoracentesis removed approximately 1500 cc fluid. Consistent with exudative effusion. -continue antibiotics - Fluconazole 400 mg twice daily - Hold patient's Bumex in setting of VIOLETA and concern for overdiuresis - Hold digoxin, lisinopril, metoprolol tartrate due to hypotension - Resume diltiazem 240 mg daily for atrial fibrillation for rate control as BP improves #Hypertension Patient has a history of hypertension which he takes lisinopril at home. BP on admission is 90/63 downtrending to 85/61 Plan - Hold antihypertensive due to soft BP - Midodrine 2.5 mg p.o. 3 times daily as needed for SBP less than 90 and MAP present 65 #Atrial fibrillation, rate controlled, chronic #Sick sinus syndrome s/p pacemaker placement EKG is paced sinus rhythm Pt has pacemaker placed in 2006 which has been replaced [address] Marquez CHADsVAS score 4 -?6.7% risk of stroke/TIA/systemic embolism HAS BLED score 2 - Metoprolol tartrate 100 mg every 12 hours - Eliquis 5 mg p.o. twice daily - Diltiazem 240 mg p.o. daily - hold Digoxin 0.125 mg po daily -hold lisinopril - Keep K > 4 and Mg > 2 #HFpEF EF 55-60% Echo on 03/17/2025 showed EF 55-60%. Diastolic function difficult to evaluate due to A-fib. Severe biatrial dilation. -CTM -does not appear to be volume overloaded on exam -hold BUMEX -repeat echo pending #Normocytic anemia, chronic #Castleman syndrome #Coagulopathy #CT finding bilateral metastatic pulmonary nodules #VIOLETA Primary care team to manage above conditions and ongoing care needs. The patient's management plan was discussed with my attending physician Dr. Marquez. Naina Sher, PGY-2
[2025-09-09] MEDS: RINGERS LACTATED 1000 ML 1,000 ML 100 ML IV (18:31)
[2025-09-09] MEDS: Norepinephrine/D5W 8mg/250ml 8 MG/250 ML BAG 9.993 MG IV (23:59)
[2025-09-10] VITALS (80 sets, daily range): BP systolic 75–120; BP diastolic 43–84; PULSE 99–134; RESP 17–32; TEMP 35.7–36.9; O2SAT 91–100
[2025-09-10 05:22] LABS: Basophils # (Auto) 0.0 Thou/mm3 (0.0-0.2); Basophils % (Auto) 0 % (0-2.5); Eosinophils # (Auto) 0.1 Thou/mm3 (0.0-0.5); Eosinophils % (Auto) 1 % (0-10); Hematocrit 29.2 % (41.0-53.0); Hemoglobin 9.4 g/dL (13.5-16.0); Immature Granulocytes Auto 0.19 Thou/mm3 (0.00-0.00); Lymphocytes # (Auto) 1.5 Thou/mm3 (1.0-4.8); Lymphocytes % (Auto) 10 % (10-50); Mean Corpuscular HGB Conc 32.2 g/dl (31.0-37.0); Mean Corpuscular Hemoglobin 30.0 pg (25.0-35.0); Mean Corpuscular Volume 93 fL (80-100); Monocytes # (Auto) 0.8 Thou/mm3 (0.0-0.8); Monocytes % (Auto) 6 % (0-12); Neutrophils # (Auto) 11.9 Thou/mm3 (1.8-7.7); Neutrophils % (Auto) 82 % (37-80); Nucleated Red Blood Cell # 0.00 Thou/mm3 (0.00-0.00); Nucleated Red Blood Cell % 0 /100 WBC (0); Platelet Count 411 Thou/mm3 (140-440); RDW Standard Deviation 52.6 fL (35.1-43.9); Red Blood Count 3.13 Miln/mm3 (4.50-5.90); White Blood Count 14.6 Thou/mm3 (3.8-10.6)
[2025-09-10 05:40] LABS: INR 1.2 (0.9-1.3); Partial Thromboplastin Time 27.1 Seconds (22.0-36.0); Prothrombin Time 12.4 Seconds (9.0-12.2)
[2025-09-10 06:20] LABS: Alanine Aminotransferase 19 U/L (10-49); Albumin, Serum 2.9 gm/dL (3.4-4.8); Albumin/Globulin Ratio 0.7 (1.2-2.2); Alkaline Phosphatase 172 U/L (46-116); Anion Gap 11 (7-16); Aspartate Amino Transferase 17 U/L (0-34); BUN/Creatinine Ratio 23 Ratio (12-20); Bilirubin,Total 0.4 mg/dL (0.3-1.2); Blood Urea Nitrogen 43 mg/dL (9-23); Calcium 8.6 mg/dL (8.3-10.6); Calcium (Corrected) 9.5 mg/dL (8.5-10.1); Carbon Dioxide 25.9 mMol/L (20.0-31.0); Chloride 103 mMol/L (98-107); Creatinine (Component) 1.9 mg/dL (0.6-1.3); Estimated Creatinine Clearance 46.7 mL/min (>60); Globulin 4.4 gm/dL (2.3-3.5); Glucose 110 mg/dL (74-106); LDH (Lactate Dehydrogenase) 193 U/L (120-246); Magnesium 2.2 mg/dL (1.6-2.6); Osmolality,Calculated 291 (275-295); Phosphorous 4.0 mg/dL (2.4-5.1); Potassium 5.0 mMol/L (3.4-5.1); Sodium 140 mMol/L (136-145); Total Protein 7.3 gm/dL (5.7-8.2); eGFR 38 See Note
[2025-09-10] MEDS: IPRATROPIUM RT 0.5 MG/ 2.5 ML NEBU INH ×3 (07:05→22:39)
[2025-09-10] MEDS: LEVALBUTEROL RT 1.25 MG/0.5 ML NEBU INH ×3 (07:05→22:39)
[2025-09-10] MEDS: ALBUMIN HUMAN-KJDA 25% IVPB 25 GM/100 ML BTL IV (07:44)
--- NOTE | 2025-09-10 08:41 | PD.RESPRO ---
Documentation for date of: 09/10/25 Subjective Subjective Interval history: History of present illness: 65-year-old male past medical history A-fib status [place] [address] 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 The patient was discharged on 09/04/2025 following treatment of superimposed pneumonia on a right sided pleural effusion. It was reported that at that time the thoracentesis was unable to be performed due to anatomic reasons. He was discharged on home oxygen and continued on fluconazole with a positive Coccidioides IgM antibody. The patient was advised to follow up with his PCP for further evaluation of Coccidioides IgG and to resume treatment for management once the results were available. However, the patient reported that the PCP was unable to obtain IgG levels. Of note, the patient has a history of Castleman syndrome and was receiving infusions of infliximab which have been paused for the past 3 months due to an abscess on his buttock that has been followed with wound care. Wound care recently cleared the patient to resume his infusions. Today he presented after progressively worsening shortness of breath. It was reported the patient was using 3 L at home and required 6 L upon arrival to the ED followed by 13 L oxime mask in order to maintain his saturations around 90. He was also found to have a creatinine of 3.2 (baseline 1.0-1.2). The patient's MAP was not maintaining above 65. He was maintaining a MAP less than 60 after receiving 12.5 mg of midodrine and gentle fluid resuscitation of 250 mL. Lactate level had started going up, 2.4. Unable to administer further IV fluid as patient has bilateral crackles and is on high flow nasal cannula. The patient was transferred to ICU for pressor support. Nephrology consulted by hospitalist team for VIOLETA. 09/09/25: Patient seen and assessed in ICU. On BiPAP. Denies recent diarrhea or vomiting. BUN 68, creatinine improved to 3.0 from 3.2 (baseline 1.0-1.3 per previous admission). Home medications include Bumex 1 mg daily, spiranolactone 25 mg daily, lisinopril 20 mg daily, and digoxin 125 mcg daily. Does not see a staff nuclear weapons officer, no history of renal conditions. UA showed trace urine protein and hyaline casts. FeNa and FeUrea indicative of pre-renal azotemia, likely ATN. 09/10/25: Patient seen and assessed in ICU. Off pressors. On 6L NC s/p right thoracentesis yesterday. UOP 2.2L. BUN 43, creatinine 1.9 (from 3.0) s/p IVF maintenance. No need to continue IVF, encourage oral rehydration. Exam Vital Signs Temp Pulse Resp BP Pulse Ox O2 Del Method O2 Flow Rate 98.2 F 118 H 27 H 105/60 96 Nasal Cannula 5 09/10/25 04:00 09/10/25 07:45 09/10/25 07:45 09/10/25 07:45 09/10/25 07:45 09/10/25 04:00 09/10/25 07:06 FiO2 80 09/09/25 18:57 Narrative Exam Physical Exam General: Awake and in no acute distress. On 6L O2. HEENT: Normocephalic, atraumatic, mucous membranes dry. Heart: Irregular rate and rhythm, normal S1 and S2, no murmurs appreciated. Lungs: Decreased breath sounds L>R, no wheezing or crackles appreciated. Abdomen: Soft, nondistended, nontender, positive bowel sounds. No guarding or rebound tenderness. Neurologic: No gross neurological deficit, and patient able to move all 4 extremities. Extremities: No edema. Skin: No rash or ecchymoses. Objective Labs 09/10/25 04:49 09/10/25 04:49 Labs: Laboratory Results - last 24 hr 09/09/25 09/10/25 11:15 04:49 WBC 14.6 H RBC 3.13 L Hgb 9.4 L Hct 29.2 L MCV 93 MCH 30.0 MCHC 32.2 RDW Std Deviation 52.6 H Plt Count 411 D Neut % (Auto) 82 H Lymph % (Auto) 10 [place] % (Auto) 6 Eos % (Auto) 1 Baso % (Auto) 0 Neut # (Auto) 11.9 H Lymph # (Auto) 1.5 [place] # (Auto) 0.8 Eos # (Auto) 0.1 Baso # (Auto) 0.0 Immature Gran # (Auto) 0.19 H Absolute Nucleated RBC 0.00 Immature Gran % 1 H Nucleated RBC % 0 PT 12.4 H INR 1.2 APTT 27.1 Sodium 140 Potassium 5.0 Chloride 103 Carbon Dioxide 25.9 Anion Gap 11 BUN 43 H Creatinine 1.9 H D Estim Creat Clear Calc 46.7 L eGFR 38 L BUN/Creatinine Ratio 23 H Glucose 110 H Calculated Osmolality 291 Calcium 8.6 Corrected Calcium 9.5 Phosphorus 4.0 Magnesium 2.2 Total Bilirubin 0.4 AST 17 ALT 19 Alkaline Phosphatase 172 H D Lactate Dehydrogenase 193 Total Protein 7.3 Albumin 2.9 L Globulin 4.4 H Albumin/Globulin Ratio 0.7 L Pleural Color Red Pleural Appearance Cloudy Pleural WBC 4710 Pleural RBC 15348 Pleural Polynuclear WBC 14.7 Pleural Mononuclear WBC 85.3 Pleural Total Protein 4.2 Pleural LDH 303 Pleural Glucose 125 Pleural Amylase 29 ABG Interpretation ABG results: 09/08/25 21:11 VBG pH 7.52 VBG pCO2 38 VBG pO2 36 VBG Base Excess 31 H Quality Measures Quality Measures none Advance care planning discussed with:: patient Assessment & Plan Assessment Current Active Medications: Generic Name Dose Route Start Last Admin Trade Name Freq PRN Reason Stop Dose Admin Acetaminophen 650 mg 09/08/25 17:08 Acetaminophen 325 Mg Tablet PO 10/08/25 17:07 Q6H PRN Fever >101.5 Apixaban 5 mg 09/08/25 21:00 09/08/25 21:42 Apixaban 2.5 Mg Tablet PO 10/08/25 20:59 Not Given On Hold: 09/08/25 21:42 BID DARLENE Bumetanide 1 mg 09/09/25 09:00 Bumetanide Inj 0.25 Mg/Ml Vial 4 Ml IVP 10/09/25 08:59 On Hold: 09/09/25 09:00 QDAY DARLENE Diltiazem HCl 240 mg 09/09/25 09:00 Diltiazem Cd 120 Mg Capcr PO 10/09/25 08:59 On Hold: 09/09/25 09:00 QDAY DARLENE Guaifenesin/Dextromethorphan 1 each 09/08/25 17:59 Guaifenesin/Dm Tablet PO 10/08/25 17:58 BID PRN COUGH Norepinephrine/Dextrose 8 mg in 250 mls @ 9.993 mls/hr 09/08/25 21:36 09/10/25 07:45 Levophed In D5w 8mg/250ml IV 10/08/25 21:35 0.01 mcg/kg/min .Q24H PRN 1.999 mls/hr PER PROTOCOL Titration Protocol 0.05 MCG/KG/MIN Ceftriaxone Sodium/Dextrose 2 gm in 50 mls @ 100 mls/hr 09/09/25 09:29 09/09/25 11:19 Rocephin/D5w 2gm IV 09/16/25 09:28 100 mls/hr QDAY DARLENE Administration Lactated Ringer's 500 mls @ 125 mls/hr 09/10/25 07:31 Lactated Ringers IV 09/10/25 11:30 .Q4H ONE Ipratropium [place] 0.5 mg 09/08/25 23:00 09/10/25 07:05 Ipratropium Rt 0.5 Mg/ 2.5 Ml Nebu INH 10/08/25 22:59 0.5 mg Q8HRRT DARLENE Administration Levalbuterol HCl 1.25 mg 09/08/25 23:00 09/10/25 07:05 Levalbuterol Rt 1.25 Mg/0.5 Ml Nebu INH 10/08/25 22:59 1.25 mg Q8HRRT DARLENE Administration Midodrine 2.5 mg 09/10/25 08:02 Midodrine 5 Mg Tablet PO 10/10/25 13:59 TID PRN SBP <90 MAP <65 Sodium Chloride 3 ml 09/08/25 17:51 09/08/25 23:07 Sodium Chloride Rt Dominique 0.9% 3 Ml Nebu INH 10/08/25 17:50 3 ml PRN PRN Administration SOLN Plan Patient is a 65 year old male with PMH of A-fib status [place] [address] Marquez, hypertension, HFpEF with EF 55-60%, and Castleman syndrome who presented with worsening shortness of breath, admitted for management of AHRF. Upgraded to ICU for hypotension requiring pressor support. Nephrology consulted for VIOLETA. #VIOLETA (resolved) #Pre-renal azotemia likely ATN secondary to overdiuresis #Possible underlying diabetic nephropathy - Does not follow staff nuclear weapons officer or have history of renal problems - BUN 65, creatinine 3.2 on admission -> 3.0 -> 1.9 (baseline 1.0-1.3) - Creatinine clearance 30.1 - UA showed hyaline casts with trace protein, possible underlying nephropathy secondary to HTN versus DM (A1c 6.2 in 06/2025, previously in prediabetic range) - Renal US showed small right kidney with bilateral renal cortical thinning and mild bilateral scar formation, no hydronephrosis. - FeNa inaccurate as patient has been on diuretics. FeUrea 13.6% indicating pre-renal disease. - S/p Bumex 1 mg IV x1, LR 250 bolus in ED, IV LR maintenance 09/09 Plan: - No need for IVF - Encourage oral hydration - Avoid nephrotoxic agents - Renally dose medications - Strict INOs - Daily weights #Hyperphosphatemia (resolved) - Phosphorus 5.6 -> 4.0 s/p sevelamer 800 x1 - In setting of VIOLETA Plan: - Continue to monitor #Sepsis leading to distributive shock secondary to #Pneumonia #Leukocytosis #A-fib #Sick sinus syndrome status post pacemaker placement #HFpEF EF 55-60% #Acute hypoxic respiratory failure #Bilateral Pleural Effusions #Pneumonia #Previous CT finding Extensive Mediastinal Lymphadenopathy #Pulmonary Nodules #Diabetes #Castleman syndrome - was on infliximab but has not been receiving infusions for the past 3 months #Chronic normocytic anemia - Defer management to primary team Thank you for your consultation, please do not hesitate to reach out if you have any question or concern Patient plan of care was discussed with the attending physician, Dr. Barakat. Soraya Alejandro DO, PGY-1 Attending Provider Attestation/Addendum Patient seen and examined with resident physician Dr. Alejandro. Note reviewed, agree with findings and recommendations. Patient currently seen in ICU. On BiPAP. Clinically looks rather hypovolemic. He has a history of Castleman syndrome. Continue with fluids. Will go for thoracentesis. Creatinine improved. Continue to monitor urine output, creatinine closely. Thank you Dr. Villar for allowing me to participate in the care of Mr. Pena
[2025-09-10] MEDS: cefTRIAXone/D5w 2gm 2 GM/50 ML BAG IV (09:06)
[2025-09-10] MEDS: MIDODRINE 5 MG TABLET PO ×3 (09:20→23:11)
--- NOTE | 2025-09-10 10:23 | XR_ITS ---
EXAMINATION: AP chest single view TECHNIQUE: AP portable semiupright chest single view Date and time: September 10, 2025, 1042 hours, comparison September 09, 2025 INDICATIONS: Post left thoracentesis FINDINGS: No pneumothorax post left thoracentesis Pneumonia at the lung bases Unipolar ventricular leads satisfactory position Prominent right mediastinum again noted IMPRESSION: No pneumothorax post left thoracentesis
--- NOTE | 2025-09-10 10:30 | ESOP_ITS ---
<Statement entered by Surya Rao MD - 09/10/25 11:16> Patient examined and plan of care discussed with attending physician. Procedure note reviewed, I agree with this documentation. Patiuent tolerated the left thorcentesis well, no complications. Total output: - 1.3L Please refer to the note below for further details. - Surya Rao MD, PGY 3 Disclaimer: The document may contain phonetic/typographic errors due to voice recognition software. These errors are purely due to imperfections in the software program. PROCEDURES: Procedure Date / Time 09/10/25 1000 Procedural Time Out Time out performed: yes Thoracentesis Indication(s): symptomatic Pleural Effusion Informed consent obtained from: surrogate Time out done, and the following verified: correct patient, side and site, procedure, patient position and implants and/or equipment Ultrasound used: Yes Procedure location: lt. post pleual space Amount pleural fluid removed (ml): 1,300 EBL(ml): 2 Procedure comment: INDICATION: Symptomatic pleural effusion PROCEDURE [place] TECHNICIAN: Vasyl Gutierrez MD ATTENDING PHYSICIAN: Dr. Villar In Attendance Y CONSENT: [Yes] During the informed consent discussion regarding the procedure, or treatment, I explained the following to the patient/designee: a. Nature of the procedure or treatment and who will perform the procedure or treatment. b. Necessity for procedure and the possible benefits. c. Risks and complications (most common and serious). d. Alternative treatments and the risks, benefits and side effects of each (including no treatment). e. Likelihood of the patient achieving his/her goals without this procedure and surgery treatment. f. Problems that might occur during the recuperation. g. Conflicts of interest, if any PROCEDURE SUMMARY: A time out was performed and the chest x-ray was reviewed, the appropriate side was confirmed and marked. My hands were washed immediately prior to the procedure. I wore a surgical cap, mask with protective eyewear, sterile gown and sterile gloves throughout the procedure. The patient was prepped and draped in a sterile manner using chlorhexidine scrub after the appropriate level was percussed and confirmed by ultrasound. 1% lidocaine was used to anesthesize the skin, subcutaneous tissue, superior aspect of the rib periosteum and parietal pleura. A finder needle was then introduced over the superior aspect of the rib to locate the pleural fluid; 20ml of frothy, milky, pink colored fluid was aspirated at a depth of approximately 2 cm. A 10-blade scalpel was used to thea the skin at the insertion site. The [id number] needle was then introduced through the skin incision into the pleural space using negative aspiration pressure and the red colormetric indicator to confirm appropriate positioning of the needle. The thoracentesis catheter was then threaded without difficulty. 1300 ml of frothy, milky, pink colored fluid was removed without difficulty. The catheter was then removed. No immediate complications were noted during the procedure. A post-procedure chest x-ray is pending at the time of this note. The fluid will be sent for studies. Estimated blood loss is 2 ml.
--- NOTE | 2025-09-10 10:30 | ESPR_ITS ---
<Statement entered by Surya Rao MD - 09/10/25 16:12> <Statement entered by Raghavendra Villar MD - 09/10/25 11:50> TOTAL CC TIME: 45 MIN I saw and evaluated the patient. I reviewed the resident?s note and agree with findings and plan as documented in the resident?s note. Upon my evaluation, this patient had a high probability of imminent or life- threatening deterioration due to septic shock from pneumonia, which required my direct attention, intervention, and personal management. This time is exclusive of time spent on procedures, which are documented separately if performed. Ceftriaxone 2 g every 24 hours attempt sputum cultures follow-up final blood cultures monitor chest x-ray especially if symptoms are worse Septic shock is improving with improved renal function, blood pressures, and Levophed is being weaned and is nearly off. Increase midodrine to 5 mg 3 times daily Documentation for date of: 09/10/25 Subjective Subjective Interval history: 65-year-old male past medical history A-fib status [place] pacemaker [place] [address] 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 The patient was discharged on 09/04/2025 following treatment of superimposed pneumonia on a right sided pleural effusion. It was reported that at that time the thoracentesis was unable to be performed due to anatomic reasons. He was discharged on home oxygen and continued on fluconazole with a positive Coccidioides IgM antibody. The patient was advised to follow up with his PCP for further evaluation of Coccidioides IgG and to resume treatment for management once the results were available. However, the patient reported that the PCP was unable to obtain IgG levels. Of note, the patient has a history of Castleman syndrome and was receiving infusions of infliximab which have been paused for the past 3 months due to an abscess on his buttock that has been followed with wound care. Wound care recently cleared the patient to resume his infusions. Today he presented after progressively worsening shortness of breath. It was reported the patient was using 3 L at home and required 6 L upon arrival to the ED followed by 13 L oxime mask in order to maintain his saturations around 90. He was also found to have a creatinine of 3.2. The patient's MAP was not maintaining above 65. He was maintaining a MAP less than 60 after receiving 12.5 mg of midodrine and gentle fluid resuscitation of 250 mL. Lactate level had started going up, 2.4. Unable to administer further IV fluid as patient has bilateral crackles and is on high flow nasal cannula. T he patient was transferred to ICU for pressor support. ED Course: * Significant vitals on arrival: BP 90/60, pulse 98, respiratory rate 20 temp 97.7, saturating 95% on 6 L oxy mask. * Significant labs: WBC 17.6, hemoglobin 10, platelets 49, neutrophils 14.5, PT 12.4, BUN 65, creatinine 3.2, glucose 113, AST 54, alk phos 211, lactate dehydrogenase 342, Pro-Sixto 0.94, lactate 2.4 * VBG: pH 7.52, pCO2 of 38, PaO2 of 36, O2 sat 68 * Imaging: * Chest x-ray showed bibasilar pneumonia and/or edema with large bilateral pleural effusions. * EKG showed atrial fibrillation with a rate of 87 and a QTc of 403, no acute ST segment changes * Renal ultrasound showed bilateral renal cortical thickening, mild bilateral renal scar formation, small right kidney, no hydronephrosis * Chest CT showed extensive mediastinal lymphadenopathy, mild heart failure, moderate to large bilateral pleural effusions, partial visualization of abdominal lymphadenopathy * Urine: Positive for hyaline casts, granular creatinine 152, random chloride 23.9, positive for marijuana * ED intervention: Patient received a total of 12.5 mg midodrine, 3.375 GM Zosyn, 100 mg doxycycline 1 mg Bumex, 250 mL LR. Cardiology was consulted. 09/09/2025 Patient examined bedside still on levo 0.09. He is on BiPAP flow 30 FiO2 50. Was consented for US guided thoracentesis Performed 1.5L out. Patient tolerated the procedure well and breathing is now much improved. Patient's titer levels indicated a false positive for cocci, discontinuing flucanozole. Cards recommended holding lisinopril and digoxin and restarting dilt and home metoprolol. Will hold dilt and metoprolol while patient's BPs are soft and requiring pressors. Discontinuing current antibiotics and starting ceftriaxone 2g IV. Giving LR gentle fluids keeping it running until morning. Holding eliquis for repeat thora tomorrow. 09/10/2025 Patient examined bedside. He is now off pressors, was on low dose levo 0.03 --> 0.01 overnight. Resuming dilt 240, midodrine 5. Sputum culture is mot likely contaminant GPC with <10 epithelial cells. Continuing IV ceftriaxone 2g. He underwent thoracentesis again today for the left sided pleural effusion 1.3L of frothy, milky pink fluid was drained. Dr. Moctezuma, the patient's oncologist, who confirmed patient should restart their immune therapy infusions and can restart the methotrexate if patient has cleared infection. ECHO showed EF 50-55% with good LV size and function, ongoing biatrial enlargement, dilated IVC, and diastolic disfunction. If patient's blood pressure remains stable, will be safe to downgrade to floor team for medical management. Exam Vital Signs Temp Pulse Resp BP Pulse Ox O2 Del Method O2 Flow Rate 96.9 F 111 H 28 H 80/55 L 94 L Nasal Cannula 6 09/10/25 08:00 09/10/25 09:20 09/10/25 09:06 09/10/25 09:20 09/10/25 09:06 09/10/25 08:00 09/10/25 08:00 FiO2 80 09/09/25 18:57 Narrative Exam General: Resting comfortably Neurologic: GCS 15. Alert and oriented x3, no gross neurological deficit, and patient able to move all 4 extremities. HEENT: Normocephalic, atraumatic, mucous membranes dry. Pupils reactive to light. Lymphatic mass on L neck - not obstructing airway Heart: Tachycardic, normal S1 and S2, no murmurs. Lungs: mechanical vent sounds, difficult to auscultate. Abdomen: Soft, nondistended, nontender, positive bowel sounds. No guarding or rebound tenderness. Extremities: No edema. 2+ radial and dorsalis pedis pulses bilaterally. Skin: Warm. Dry. No rash or ecchymoses. Objective Labs 09/13/25 04:05 09/13/25 04:05 Labs: Laboratory Results - last 24 hr 09/09/25 09/10/25 11:15 04:49 WBC 14.6 H RBC 3.13 L Hgb 9.4 L Hct 29.2 L MCV 93 MCH 30.0 MCHC 32.2 RDW Std Deviation 52.6 H Plt Count 411 D Neut % (Auto) 82 H Lymph % (Auto) 10 [place] % (Auto) 6 Eos % (Auto) 1 Baso % (Auto) 0 Neut # (Auto) 11.9 H Lymph # (Auto) 1.5 [place] # (Auto) 0.8 Eos # (Auto) 0.1 Baso # (Auto) 0.0 Immature Gran # (Auto) 0.19 H Absolute Nucleated RBC 0.00 Immature Gran % 1 H Nucleated RBC % 0 PT 12.4 H INR 1.2 APTT 27.1 Sodium 140 Potassium 5.0 Chloride 103 Carbon Dioxide 25.9 Anion Gap 11 BUN 43 H Creatinine 1.9 H D Estim Creat Clear Calc 46.7 L eGFR 38 L BUN/Creatinine Ratio 23 H Glucose 110 H Calculated Osmolality 291 Calcium 8.6 Corrected Calcium 9.5 Phosphorus 4.0 Magnesium 2.2 Total Bilirubin 0.4 AST 17 ALT 19 Alkaline Phosphatase 172 H D Lactate Dehydrogenase 193 Total Protein 7.3 Albumin 2.9 L Globulin 4.4 H Albumin/Globulin Ratio 0.7 L Pleural Color Red Pleural Appearance Cloudy Pleural WBC 4710 Pleural RBC 91362 Pleural Polynuclear WBC 14.7 Pleural Mononuclear WBC 85.3 Pleural Total Protein 4.2 Pleural LDH 303 Pleural Glucose 125 Pleural Amylase 29 ABG Interpretation ABG results: 09/08/25 21:11 VBG pH 7.52 VBG pCO2 38 VBG pO2 36 VBG Base Excess 31 H Quality Measures Quality Measures none Advance care planning discussed with:: patient and spouse Assessment & Plan Assessment Current Active Medications: Generic Name Dose Route Start Last Admin Trade Name Freq PRN Reason Stop Dose Admin Acetaminophen 650 mg 09/08/25 17:08 Acetaminophen 325 Mg Tablet PO 10/08/25 17:07 Q6H PRN Fever >101.5 Apixaban 5 mg 09/08/25 21:00 09/08/25 21:42 Apixaban 2.5 Mg Tablet PO 10/08/25 20:59 Not Given On Hold: 09/08/25 21:42 BID DARLENE Bumetanide 1 mg 09/09/25 09:00 Bumetanide Inj 0.25 Mg/Ml Vial 4 Ml IVP 10/09/25 08:59 On Hold: 09/09/25 09:00 QDAY DARLENE Diltiazem HCl 240 mg 09/09/25 09:00 Diltiazem Cd 120 Mg Capcr PO 10/09/25 08:59 On Hold: 09/09/25 09:00 QDAY DARLENE Guaifenesin/Dextromethorphan 1 each 09/08/25 17:59 Guaifenesin/Dm Tablet PO 10/08/25 17:58 BID PRN COUGH Norepinephrine/Dextrose 8 mg in 250 mls @ 9.993 mls/hr 09/08/25 21:36 09/10/25 09:00 Levophed In D5w 8mg/250ml IV 10/08/25 21:35 0.01 mcg/kg/min .Q24H PRN 1.999 mls/hr PER PROTOCOL Titration Protocol 0.05 MCG/KG/MIN Ceftriaxone Sodium/Dextrose 2 gm in 50 mls @ 100 mls/hr 09/09/25 09:29 09/10/25 09:06 Rocephin/D5w 2gm IV 09/16/25 09:28 100 mls/hr QDAY DARLENE Administration Lactated Ringer's 500 mls @ 125 mls/hr 09/10/25 07:31 09/10/25 09:36 Lactated Ringers IV 09/10/25 11:30 Not Given .Q4H ONE Ipratropium [place] 0.5 mg 09/08/25 23:00 09/10/25 07:05 Ipratropium Rt 0.5 Mg/ 2.5 Ml Nebu INH 10/08/25 22:59 0.5 mg Q8HRRT DARLENE Administration Levalbuterol HCl 1.25 mg 09/08/25 23:00 09/10/25 07:05 Levalbuterol Rt 1.25 Mg/0.5 Ml Nebu INH 10/08/25 22:59 1.25 mg Q8HRRT DARLENE Administration Midodrine 5 mg 09/10/25 09:16 09/10/25 09:20 Midodrine 5 Mg Tablet PO 10/10/25 13:59 5 mg TID PRN Administration SBP <90 MAP <65 Sodium Chloride 3 ml 09/08/25 17:51 09/08/25 23:07 Sodium Chloride Rt Dominique 0.9% 3 Ml Nebu INH 10/08/25 17:50 3 ml PRN PRN Administration SOLN Plan 65-year-old male past medical history A-fib status [place] [address] 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 Initially he presented after progressively worsening shortness of breath. It was reported the patient was using 3 L at home and required 6 L upon arrival to the ED followed by 13 L oxime mask in order to maintain his saturations around 90. He was also found to have a creatinine of 3.2. The patient's MAP was not maintaining above 65. He was maintaining a MAP less than 60 after receiving 12.5 mg of midodrine and gentle fluid resuscitation of 250 mL. Unable to administer further IV fluid as patient has bilateral crackles and is on high flow nasal cannula. The patient was transferred to ICU for pressor support. In ICU patient was weaned off of pressors, had 1.5 and 1.3 L of fluid drained from pleural effusions with thoracentesis. Patient had improved breathing and BP stabilization. Will most likely be safe to downgrade to floors tomorrow in morning. Neuro No active problems Cardiovasc: #Shock - resolving Ddx distributive iso of sepsis source is most likely bacterial pneumonia, may be secondary to, or contributed by, decreased fluid intake reflected by creatinine of 3.2, less likely hypovolemic shock, hemoglobin 10.0 and stable, no suspicion for active bleeding, less likely obstructive (would require massive pleural effusions increasing intrathoracic pressure decreasing preload). Dx 3/4 SIRS with lactic acidosis and suspected HR >90, RR >20, WBC 17.6, LA 2.4. blood cx x2, urine cx, CXR, monitor WBC Rx Gentle IVF LR 100-125ml/hr overnight. Ceftriaxone 2g IV QD (09/09-), levophed #A-fib #Sick sinus syndrome status post pacemaker placement - stable Dx CHADsVAS score 4 HAS BLED score 2, EKG showed atrial fibrillation with a rate of 87 and a QTc of 403, no acute ST segment changes Rx: Patient takes metoprolol (hold due to low BPs), diltiazem resumed 09/10, and Eliquis (resumed 09/10). Keep potassium over 4, magnesium over 2. Cardiology consulted RRx: BPs currently soft, on levo 0.09, can consider phenylephrine or vasopressin with amio if A fib worsens (HR >150 chest pain, palpitations) #HFpEF EF 55-60% (02/2023) - stable Dx Echo on 03/17/2025 showed EF 55-60%. Diastolic function difficult to evaluate due to A-fib. Severe biatrial dilation. Repeat ECHO showed similar function Rx Strict ins and outs, holding home meds (lisinopril and digoxin) due to VIOLETA Pulm: #Acute hypoxic respiratory failure - resolving Ddx chylothorax, bacterial infection, compression atelectasis 2/2 bilateral pleural effusions, or empyema formation Dx chest ct, US guided thora (chylous) pleural fluid analysis Rx Bipap, high flow nasal cannula, US thoracentesis, holding diuresis, ceftriaxone 3g IV (09/09), Guaifenesin p.o. 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 05/25/25 Chest CTA - Extensive tumor mediastinal lymphadenopathy and biilateral metastatic pulmonary nodules. At least 10 subcentimeter metastatic pulmonary nodules. Chest CT 09/08/2025 again noted extensive mediastinal lymphadenopathy Rx: Requesting outside medical records Renal: #VIOLETA - resolving Ddx volume depletion/dehydration, worsening Castleman's Dx FUP renal panels, renal US (bilateral renal cortical thickening, mild bilateral renal scar formation, small right kidney, no hydronephrosis) Rx Gentle fluids LR 100-125 ml/hr, holding diuresis, avoid nephrotoxic agents, renally dose medications GI: No active problems Endocrine: #Pre-diabetes Dx A1c 06/30/2025 6.2; blood glucose 120-140. Not on insulin at home Rx: No intervention at this time Heme/Onc: #Castleman syndrome Established diagnosis, patient follows up outpatient. Patient was receiving infusions of siltuximab which have been paused for the past 3 months due to an abscess on his buttock that has been followed with wound care. Wound care recently cleared the patient to resume his infusions. Patient unable to resume IL-6 inhibitor infusion due to positive cocci result --> titers show false positive, therefore stopping fluconazole. Can continue IL-6 infusions when discharged. Spoke to heme oncologist Dr. Jose Elias maldonado to recieve infusions again. Rx No treatment at this time #Chronic normocytic anemia Ddx May be secondary to anemia of chronic disease secondary to Castleman syndrome. MCV is normal, reinforces anemia of chronic disease versus nutritional deficiency Dx trend with CBC Rx No direct intervention at this time RRx: if worsening consider iron panel, or work up for GI blood loss ID #Cocci false positive Dx on 08/30/2025 titers indicate false positive Rx discontinuing flucanozole Skin: No active problems. ICU Maintenance: no vent DVT ppx: resuming eliquis GI ppx: none Diet: Low fat diet IV lines: Peripheral IVs Code status: Full code Dispo: ICU for pressor support, currently receiving BiPAP, pending possible thoracentesis on L side tomorrow Patient was seen and discussed with my attending physician Dr. Villar and my senior resident Dr. Maira HONG PGY-3. Vasyl Gutierrez PGY-1. L Patient examined and case discussed with the team including attending physician. Note reviewed, I agree with the care plan as documented. Please refer to the note above for further details. - Surya Rao MD, PGY 3 Disclaimer: The document may contain phonetic/typographic errors due to voice recognition software. These errors are purely due to imperfections in the software program.
[2025-09-10 11:21] LABS: Misc Send Out* See Sep Rpt
[2025-09-10 12:07] LABS: Glucose,Pleural Fluid 107 mg/dL; LDH,Pleural Fluid 213 IU/L; Protein Total,Pleural Fluid 4.3 g/dL
[2025-09-10 12:31] LABS: Pleural Fluid Appearance Cloudy; Pleural Fluid Color Red; Pleural Fluid Mononuclear 86 %; Pleural Fluid Polynuclear 14 %; Pleural Fluid RBC 40000 /cmm; Pleural Fluid WBC 4770 /cmm
[2025-09-10 14:30] LABS: pH,Body Fluid 7.5
--- NOTE | 2025-09-10 14:40 | ESPR_ITS ---
<Statement entered by Kervin Marquez MD - 09/11/25 23:48> I personally examined the patient evaluated in intensive care patient continues to improve slowly send really feeling weak and tired no shortness of chest pain patient continues to be on oxygen but less then before remains atrial fibrillation rate 110 bpm heart rate is normal in the creatinine is trending down to 1.9 chest ray showed persistent pleural effusion left side underwent thoracentesis 1.3 L was removed again and left side which is excellent patient's treatment to be improving shortness with improving gradually. Evaluated patient with resident physician PGY 2 Dr. Cline will continue to monitor the patient closely Documentation for date of: 09/10/25 Subjective Subjective Interval history: Patient is a 65-year-old male past medical historyA-fib, status post pacemaker placement (2006, with [address] 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 Patient was recently discharged from hospital on 09/04 after being treated for volume overload and A- fib. He is returning now with worsening symptoms. He noted that at home, his oxygen saturation was in the 80s while on 3 L of nasal cannula, and he was unaware that he could increase the flow rate. Complains of feeling dehydrated there is concern for overdiuresis from his last admission as creatinine is elevated at 3.2. Repeat chest imaging shows worsening bilateral pleural effusions. Patient was desaturating on 72% on room air. Placed on 6 L face mask ultimately improved to 93%. At bedside he was on room air saturations 86%. EKG showed controlled rate 87 irregular rhythm atrial fibrillation. Sodium 136, potassium 5.1, BUN 65, creatinine 3.2 (baseline appears to be around 1.2). Troponins were negative BNP normal limits. On physical exam he does not appear to be fluid overloaded. Recommend that patient be allowed to have some fluid intake due to VIOLETA in setting of possible overdiuresis. Due to soft blood pressure recommend holding digoxin and lisinopril. Okay to continue diltiazem, metoprolol tartrate, spironolactone for proper rate control. 09/09: Patient examined at bedside. He underwent right-sided thoracentesis today. Approximately 1500 cc removed. Pleural fluid studies were consistent with an exudative effusion per lights criteria. Possibly due to his underlying Castleman syndrome. Symptoms have significantly improved with less shortness of breath. Telemetry was reviewed he remains in atrial fibrillation rate controlled around 90s. Patient remains on Levophed however has been titrated down slightly since yesterday. Creatinine down trended 3.0. Primary care team will most likely repeat thoracentesis on left. Continue to hold Bumex, metoprolol, digoxin, lisinopril, and dilt due to hypotension. Resume slowly as BP improves. 09/10: Patient examined at bedside. Respiratory distress significantly improved. Underwent left thoracentesis today with output of 1.3 L of fluid. Oxygen weaned from 6 L to 3 L nasal cannula saturating adequately 94%. Telemetry reviewed, patient remains in atrial fibrillation, heart rate well- controlled 105?110. Denies any chest pain or palpitations. Sodium 140, potassium 5.0, creatinine downtrended to 1.9. Repeat chest x-ray shows major improvement in congestion and pleural effusions. Lungs clear to auscultation on physical exam. He has been titrated off Levophed blood pressure 90/49 at bedside. Morning blood pressure with midodrine 5mg TID PRN. Plan to resume rate control agents as blood pressure improves. Starting with diltiazem. Exam Vital Signs Temp Pulse Resp BP Pulse Ox O2 Del Method O2 Flow Rate 96.9 F 113 H 20 90/49 L 98 Nasal Cannula 3 09/10/25 12:00 09/10/25 14:21 09/10/25 14:16 09/10/25 14:21 09/10/25 14:16 09/10/25 14:16 09/10/25 14:16 FiO2 80 09/09/25 18:57 Narrative Exam General: Alert and oriented x3. No acute distress, cooperative HEENT: NCAT, No JVD noted. Mucosa moist. Pupils are equal and reactive to light bilaterally Cardiovascular: Normal S1 and S2. Regular rate and rhythm. Respiratory: Lungs are clear to auscultation bilaterally. No wheezing or crackles heard. On NC 3L Abdomen: Soft, nontender, not distended, normal bowel sounds. Skin: Warm to touch, dry, no rashes noted Musculoskeletal: No gross injuries. Able to move all 4 extremities. No pitting edema Neuro: Alert and oriented x3. No focal neuro deficits. Psych: Normal affect and mood Objective Labs 09/10/25 04:49 09/10/25 04:49 Labs: Laboratory Results - last 24 hr 09/10/25 09/10/25 09/10/25 04:49 10:00 10:00 WBC 14.6 H RBC 3.13 L Hgb 9.4 L Hct 29.2 L MCV 93 MCH 30.0 MCHC 32.2 RDW Std Deviation 52.6 H Plt Count 411 D Neut % (Auto) 82 H Lymph % (Auto) 10 Holt % (Auto) 6 Eos % (Auto) 1 Baso % (Auto) 0 Neut # (Auto) 11.9 H Lymph # (Auto) 1.5 Holt # (Auto) 0.8 Eos # (Auto) 0.1 Baso # (Auto) 0.0 Immature Gran # (Auto) 0.19 H Absolute Nucleated RBC 0.00 Immature Gran % 1 H Nucleated RBC % 0 PT 12.4 H INR 1.2 APTT 27.1 Sodium 140 Potassium 5.0 Chloride 103 Carbon Dioxide 25.9 Anion Gap 11 BUN 43 H Creatinine 1.9 H D Estim Creat Clear Calc 46.7 L eGFR 38 L BUN/Creatinine Ratio 23 H Glucose 110 H Calculated Osmolality 291 Calcium 8.6 Corrected Calcium 9.5 Phosphorus 4.0 Magnesium 2.2 Total Bilirubin 0.4 AST 17 ALT 19 Alkaline Phosphatase 172 H D Lactate Dehydrogenase 193 Total Protein 7.3 Albumin 2.9 L Globulin 4.4 H Albumin/Globulin Ratio 0.7 L Fluid pH Cancelled 7.5 Pleural Color Red Pleural Appearance Cloudy Pleural WBC 4770 Ple[place] RBC 52365 Pleural Polynuclear WBC 14 Pleural Mononuclear WBC 86 Pleural Total Protein 4.3 Pleural LDH 213 Pleural Glucose 107 ABG Interpretation ABG results: 09/08/25 21:11 VBG pH 7.52 VBG pCO2 38 VBG pO2 36 VBG Base Excess 31 H Quality Measures Quality Measures none Advance care planning discussed with:: patient Assessment & Plan Assessment Current Active Medications: Generic Name Dose Route Start Last Admin Trade Name Freq PRN Reason Stop Dose Admin Acetaminophen 650 mg 09/08/25 17:08 Acetaminophen 325 Mg Tablet PO 10/08/25 17:07 Q6H PRN Fever >101.5 Apixaban 5 mg 09/08/25 21:00 09/08/25 21:42 Apixaban 2.5 Mg Tablet PO 10/08/25 20:59 Not Given BID DARLENE Bumetanide 1 mg 09/09/25 09:00 Bumetanide Inj 0.25 Mg/Ml Vial 4 Ml IVP 10/09/25 08:59 On Hold: 09/09/25 09:00 QDAY DARLENE Diltiazem HCl 240 mg 09/09/25 09:00 Diltiazem Cd 120 Mg Capcr PO 10/09/25 08:59 QDAY DARLENE Guaifenesin/Dextromethorphan 1 each 09/08/25 17:59 Guaifenesin/Dm Tablet PO 10/08/25 17:58 BID PRN COUGH Norepinephrine/Dextrose 8 mg in 250 mls @ 9.993 mls/hr 09/08/25 21:36 09/10/25 12:00 Levophed In D5w 8mg/250ml IV 10/08/25 21:35 0 mcg/kg/min .Q24H PRN 0 mls/hr PER PROTOCOL Titration Protocol 0.05 MCG/KG/MIN Ceftriaxone Sodium/Dextrose 2 gm in 50 mls @ 100 mls/hr 09/09/25 09:29 09/10/25 09:06 Rocephin/D5w 2gm IV 09/16/25 09:28 100 mls/hr QDAY DARLENE Administration Ipratropium [place] 0.5 mg 09/08/25 23:00 09/10/25 07:05 Ipratropium Rt 0.5 Mg/ 2.5 Ml Nebu INH 10/08/25 22:59 0.5 mg Q8HRRT DARLENE Administration Levalbuterol HCl 1.25 mg 09/08/25 23:00 09/10/25 07:05 Levalbuterol Rt 1.25 Mg/0.5 Ml Nebu INH 10/08/25 22:59 1.25 mg Q8HRRT DARLENE Administration Midodrine 5 mg 09/10/25 09:16 09/10/25 14:21 Midodrine 5 Mg Tablet PO 10/10/25 13:59 5 mg TID PRN Administration SBP <90 MAP <65 Sodium Chloride 3 ml 09/08/25 17:51 09/08/25 23:07 Sodium Chloride Rt Dominique 0.9% 3 Ml Nebu INH 10/08/25 17:50 3 ml PRN PRN Administration SOLN Plan Patient is 65-year-old male with past medical history of A-fib, status post pacemaker placement (2006, with [address] 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 Admitted for acute hypoxic respiratory failure secondary to pleural effusion. Cardiology consulted for atrial fibrillation and concern for heart failure exacerbation. 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 Denies fever, chills, recent sick contact. Patient worsening dypnea likely due to bilateral pleural effusion. Patient work of breathing will likely improve after getting therapeutic thoracentesis. Chest x-ray showed chest x-ray bibasilar pneumonia/or edema large bilateral pleural effusion. Mild enlargement cardiac contour with prominent vascular congestion. PSI/PORT score 137 points- Risk Class V (high risk) , 27.0-29.2% mortality.? 09/09--right thoracentesis removed approximately 1500 cc fluid. Consistent with exudative effusion. 09/10--underwent left thoracentesis removal of 1300 cc fluid. -continue antibiotics - Fluconazole 400 mg twice daily - Hold patient's Bumex in setting of VIOLETA and concern for overdiuresis - Hold digoxin, lisinopril, metoprolol tartrate due to hypotension - Resume diltiazem 240 mg daily for atrial fibrillation for rate control as BP improves #Hypertension Patient has a history of hypertension which he takes lisinopril at home. BP on admission is 90/63 downtrending to 85/61 Plan - Hold antihypertensive due to soft BP - Midodrine 2.5 mg p.o. 3 times daily as needed for SBP less than 90 and MAP present 65 #Atrial fibrillation, rate controlled, chronic #Sick sinus syndrome s/p pacemaker placement EKG is paced sinus rhythm Pt has pacemaker placed in 2006 which has been replaced [address] Marquez CHADsVAS score 4 -?6.7% risk of stroke/TIA/systemic embolism HAS BLED score 2 - Metoprolol tartrate 100 mg every 12 hours - Eliquis 5 mg p.o. twice daily - Diltiazem 240 mg p.o. daily - hold Digoxin 0.125 mg po daily -hold lisinopril - Keep K > 4 and Mg > 2 #HFpEF EF 55-60% Echo on 03/17/2025 showed EF 55-60%. Diastolic function difficult to evaluate due to A-fib. Severe biatrial dilation. -CTM -does not appear to be volume overloaded on exam -hold BUMEX -repeat echo pending #Normocytic anemia, chronic #Castleman syndrome #Coagulopathy #CT finding bilateral metastatic pulmonary nodules #VIOLETA Primary care team to manage above conditions and ongoing care needs. The patient's management plan was discussed with my attending physician Dr. Marquez. Naina Sher, PGY-2
[2025-09-10] MEDS: DILTIAZEM 30 MG TABLET PO ×2 (16:17→20:20)
[2025-09-10] MEDS: ALBUTEROL/IPRATROPIUM (Duoneb) RT SOL 3 ML NEBU INH (17:11)
[2025-09-10] MEDS: APIXABAN 2.5 MG TABLET 5 MG PO (20:21)
[2025-09-11] VITALS (15 sets, daily range): BP systolic 73–120; BP diastolic 41–78; PULSE 99–127; RESP 14–31; TEMP 36.2–36.7; O2SAT 92–97
[2025-09-11] MEDS: MIDODRINE 5 MG TABLET PO (05:08)
--- NOTE | 2025-09-11 05:33 | PD.RESEVENT ---
Documentation for date of: 09/11/25 Event Note Event Note: Patient was downgraded from ICU to medical floors overnight as the patient was stable off vasopressors for several hours. In the ICU, patient received bilateral thoracenteses, and patient has been transition back to nasal cannula for oxygenation. Patient was downgraded with midodrine 5 mg 3 times daily, low threshold to increase to midodrine 10 mg 3 times daily if patient's blood pressures become soft. Will sign out this information to the day team. Patient plan of care was discussed with the senior resident Dr. Bustos (PGY-2) and attending physician Dr. Heather Villasenor, PGY1
[2025-09-11 05:36] LABS: Basophils # (Auto) 0.0 Thou/mm3 (0.0-0.2); Basophils % (Auto) 0 % (0-2.5); Eosinophils # (Auto) 0.1 Thou/mm3 (0.0-0.5); Eosinophils % (Auto) 1 % (0-10); Hematocrit 30.7 % (41.0-53.0); Hemoglobin 9.7 g/dL (13.5-16.0); Immature Granulocytes Auto 0.16 Thou/mm3 (0.00-0.00); Lymphocytes # (Auto) 1.3 Thou/mm3 (1.0-4.8); Lymphocytes % (Auto) 10 % (10-50); Mean Corpuscular HGB Conc 31.6 g/dl (31.0-37.0); Mean Corpuscular Hemoglobin 29.5 pg (25.0-35.0); Mean Corpuscular Volume 93 fL (80-100); Monocytes # (Auto) 0.7 Thou/mm3 (0.0-0.8); Monocytes % (Auto) 5 % (0-12); Neutrophils # (Auto) 11.4 Thou/mm3 (1.8-7.7); Neutrophils % (Auto) 83 % (37-80); Nucleated Red Blood Cell # 0.00 Thou/mm3 (0.00-0.00); Nucleated Red Blood Cell % 0 /100 WBC (0); Platelet Count 425 Thou/mm3 (140-440); RDW Standard Deviation 53.7 fL (35.1-43.9); Red Blood Count 3.29 Miln/mm3 (4.50-5.90); White Blood Count 13.8 Thou/mm3 (3.8-10.6)
[2025-09-11 06:12] LABS: Alanine Aminotransferase 15 U/L (10-49); Albumin, Serum 3.0 gm/dL (3.4-4.8); Albumin/Globulin Ratio 0.7 (1.2-2.2); Alkaline Phosphatase 159 U/L (46-116); Anion Gap 12 (7-16); Aspartate Amino Transferase 17 U/L (0-34); BUN/Creatinine Ratio 27 Ratio (12-20); Bilirubin,Total 0.4 mg/dL (0.3-1.2); Blood Urea Nitrogen 41 mg/dL (9-23); Calcium 8.9 mg/dL (8.3-10.6); Calcium (Corrected) 9.7 mg/dL (8.5-10.1); Carbon Dioxide 23.7 mMol/L (20.0-31.0); Chloride 102 mMol/L (98-107); Creatinine (Component) 1.5 mg/dL (0.6-1.3); Estimated Creatinine Clearance 59.0 mL/min (>60); Globulin 4.6 gm/dL (2.3-3.5); Glucose 100 mg/dL (74-106); Magnesium 1.9 mg/dL (1.6-2.6); Osmolality,Calculated 285 (275-295); Phosphorous 3.9 mg/dL (2.4-5.1); Potassium 5.0 mMol/L (3.4-5.1); Sodium 138 mMol/L (136-145); Total Protein 7.6 gm/dL (5.7-8.2); eGFR 51 See Note
[2025-09-11] MEDS: LEVALBUTEROL RT 1.25 MG/0.5 ML NEBU INH ×2 (06:44→14:46)
[2025-09-11] MEDS: IPRATROPIUM RT 0.5 MG/ 2.5 ML NEBU INH ×3 (06:44→22:29)
[2025-09-11 08:38] LABS: LDH (Lactate Dehydrogenase) 174 U/L (120-246)
--- NOTE | 2025-09-11 08:55 | PD.RESPRO ---
Documentation for date of: 09/11/25 Subjective Subjective Interval history: History of present illness: 65-year-old male past medical history A-fib status [place] pac[place] [address] 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 The patient was discharged on 09/04/2025 following treatment of superimposed pneumonia on a right sided pleural effusion. It was reported that at that time the thoracentesis was unable to be performed due to anatomic reasons. He was discharged on home oxygen and continued on fluconazole with a positive Coccidioides IgM antibody. The patient was advised to follow up with his PCP for further evaluation of Coccidioides IgG and to resume treatment for management once the results were available. However, the patient reported that the PCP was unable to obtain IgG levels. Of note, the patient has a history of Castleman syndrome and was receiving infusions of infliximab which have been paused for the past 3 months due to an abscess on his buttock that has been followed with wound care. Wound care recently cleared the patient to resume his infusions. Today he presented after progressively worsening shortness of breath. It was reported the patient was using 3 L at home and required 6 L upon arrival to the ED followed by 13 L oxime mask in order to maintain his saturations around 90. He was also found to have a creatinine of 3.2 (baseline 1.0-1.2). The patient's MAP was not maintaining above 65. He was maintaining a MAP less than 60 after receiving 12.5 mg of midodrine and gentle fluid resuscitation of 250 mL. Lactate level had started going up, 2.4. Unable to administer further IV fluid as patient has bilateral crackles and is on high flow nasal cannula. The patient was transferred to ICU for pressor support. Nephrology consulted by hospitalist team for VIOLETA. 09/09/25: Patient seen and assessed in ICU. On BiPAP. Denies recent diarrhea or vomiting. BUN 68, creatinine improved to 3.0 from 3.2 (baseline 1.0-1.3 per previous admission). Home medications include Bumex 1 mg daily, spiranolactone 25 mg daily, lisinopril 20 mg daily, and digoxin 125 mcg daily. Does not see a hospice physician, no history of renal conditions. UA showed trace urine protein and hyaline casts. FeNa and FeUrea indicative of pre-renal azotemia, likely ATN. 09/10/25: Patient seen and assessed in ICU. Off pressors. On 6L NC s/p right thoracentesis yesterday. UOP 2.2L. BUN 43, creatinine 1.9 (from 3.0) s/p IVF maintenance. No need to continue IVF, encourage oral rehydration. 09/11/25: Patient seen and assessed in ICU, on telemetry. BP 93/60s at bedside, on midodrine 5 mg TID. UOP 1.8L. BUN 41, creatinine 1.5, back to baseline. Patient is medically stable for discharge from nephrology standpoint. Explained to patient that he may have underlying nephropathy, is welcomed to follow up outpatient at clinic 1-2 weeks after discharge. Exam Vital Signs Temp Pulse Resp BP Pulse Ox O2 Del Method O2 Flow Rate 97.1 F 117 H 24 H 73/41 L 96 Nasal Cannula 3 09/11/25 04:00 09/11/25 06:44 09/11/25 06:44 09/11/25 05:08 09/11/25 06:44 09/10/25 16:00 09/11/25 06:44 FiO2 80 09/09/25 18:57 Narrative Exam Physical Exam General: Awake and in no acute distress. On 3L O2. HEENT: Normocephalic, atraumatic, mucous membranes dry. Heart: Irregular rate and rhythm, normal S1 and S2, no murmurs appreciated. Lungs: CTAB. Abdomen: Soft, nondistended, nontender, positive bowel sounds. No guarding or rebound tenderness. Neurologic: No gross neurological deficit, and patient able to move all 4 extremities. Extremities: No edema. Skin: No rash or ecchymoses. Objective Labs 09/11/25 04:29 09/11/25 04:29 Labs: Laboratory Results - last 24 hr 09/10/25 09/10/25 09/11/25 10:00 10:00 04:29 WBC 13.8 H RBC 3.29 L Hgb 9.7 L Hct 30.7 L MCV 93 MCH 29.5 MCHC 31.6 RDW Std Deviation 53.7 H Plt Count 425 Neut % (Auto) 83 H Lymph % (Auto) 10 King % (Auto) 5 Eos % (Auto) 1 Baso % (Auto) 0 Neut # (Auto) 11.4 H Lymph # (Auto) 1.3 King # (Auto) 0.7 Eos # (Auto) 0.1 Baso # (Auto) 0.0 Immature Gran # (Auto) 0.16 H Absolute Nucleated RBC 0.00 Immature Gran % 1 H Nucleated RBC % 0 Sodium 138 Potassium 5.0 Chloride 102 Carbon Dioxide 23.7 Anion Gap 12 BUN 41 H Creatinine 1.5 H Estim Creat Clear Calc 59.0 L eGFR 51 L BUN/Creatinine Ratio 27 H Glucose 100 Calculated Osmolality 285 Calcium 8.9 Corrected Calcium 9.7 Phosphorus 3.9 Magnesium 1.9 Total Bilirubin 0.4 AST 17 ALT 15 Alkaline Phosphatase 159 H Lactate Dehydrogenase 174 Total Protein 7.6 Albumin 3.0 L Globulin 4.6 H Albumin/Globulin Ratio 0.7 L Fluid pH Cancelled 7.5 Pleural Color Red Pleural Appearance Cloudy Pleural WBC 4770 Pleural RBC 20245 Pleural Polynuclear WBC 14 Pleural Mononuclear WBC 86 Pleural Total Protein 4.3 Pleural LDH 213 Pleural Glucose 107 ABG Interpretation ABG results: 09/08/25 21:11 VBG pH 7.52 VBG pCO2 38 VBG pO2 36 VBG Base Excess 31 H Quality Measures Quality Measures none Advance care planning discussed with:: patient Assessment & Plan Assessment Current Active Medications: Generic Name Dose Route Start Last Admin Trade Name Freq PRN Reason Stop Dose Admin Acetaminophen 650 mg 09/08/25 17:08 Acetaminophen 325 Mg Tablet PO 10/08/25 17:07 Q6H PRN Fever >101.5 Apixaban 5 mg 09/08/25 21:00 09/10/25 20:21 Apixaban 2.5 Mg Tablet PO 10/08/25 20:59 5 mg BID DARLENE Administration Bumetanide 1 mg 09/09/25 09:00 Bumetanide Inj 0.25 Mg/Ml Vial 4 Ml IVP 10/09/25 08:59 On Hold: 09/09/25 09:00 QDAY DARLENE Guaifenesin/Dextromethorphan 1 each 09/08/25 17:59 Guaifenesin/Dm Tablet PO 10/08/25 17:58 BID PRN COUGH Ceftriaxone Sodium/Dextrose 2 gm in 50 mls @ 100 mls/hr 09/09/25 09:29 09/10/25 09:06 Rocephin/D5w 2gm IV 09/16/25 09:28 100 mls/hr QDAY DARLENE Administration Magnesium Sulfate 2 gm in 50 mls @ 25 mls/hr 09/11/25 08:19 Magnesium Sulfate Ivpb IV 09/11/25 10:18 X1 ONE Ipratropium [place] 0.5 mg 09/08/25 23:00 09/11/25 06:44 Ipratropium Rt 0.5 Mg/ 2.5 Ml Nebu INH 10/08/25 22:59 0.5 mg Q8HRRT DARLENE Administration Levalbuterol HCl 1.25 mg 09/08/25 23:00 09/11/25 06:44 Levalbuterol Rt 1.25 Mg/0.5 Ml Nebu INH 10/08/25 22:59 1.25 mg Q8HRRT DARLENE Administration Midodrine 10 mg 09/11/25 14:00 Midodrine 5 Mg Tablet PO 10/11/25 13:59 TID DARLENE Sodium Chloride 3 ml 09/08/25 17:51 09/08/25 23:07 Sodium Chloride Rt Dominique 0.9% 3 Ml Nebu INH 10/08/25 17:50 3 ml PRN PRN Administration SOLN Plan Patient is a 65 year old male with PMH of A-fib status [place] [address] Marquez, hypertension, HFpEF with EF 55-60%, and Castleman syndrome who presented with worsening shortness of breath, admitted for management of AHRF. Upgraded to ICU for hypotension requiring pressor support. Nephrology consulted for VIOLETA. #VIOLETA (resolving) #Pre-renal azotemia likely ATN secondary to overdiuresis #Possible underlying diabetic nephropathy - Does not follow hospice physician or have history of renal problems - BUN 65, creatinine 3.2 on admission -> 3.0 -> 1.9 (baseline 1.0-1.3) - Creatinine clearance 30.1 - UA showed hyaline casts with trace protein, possible underlying nephropathy secondary DM (A1c 6.2 in 06/2025, previously in prediabetic range) - Renal US showed small right kidney with bilateral renal cortical thinning and mild bilateral scar formation, no hydronephrosis. - FeNa inaccurate as patient has been on diuretics. FeUrea 13.6% indicating pre-renal disease. - S/p Bumex 1 mg IV x1, LR 250 bolus in ED, IV LR maintenance 09/09 Plan: - No need for IVF - Encourage oral hydration - Avoid nephrotoxic agents - Renally dose medications - Strict INOs - Daily weights - Follow AM renal panel #Hyperphosphatemia (resolved) - Phosphorus 5.6 -> 4.0 s/p sevelamer 800 x1 - In setting of VIOLETA Plan: - Continue to monitor #Sepsis leading to distributive shock secondary to #Pneumonia #Leukocytosis #A-fib #Sick sinus syndrome status post pacemaker placement #HFpEF EF 55-60% #Acute hypoxic respiratory failure (resolving) #Bilateral Pleural Effusions - resolved s/p bilateral thoracentesis #Pneumonia #Extensive Mediastinal Lymphadenopathy #Pulmonary Nodules #Diabetes #Castleman syndrome - was on infliximab but has not been receiving infusions for the past 3 months #Chronic normocytic anemia - Defer management to primary team Thank you for your consultation, please do not hesitate to reach out if you have any question or concern Patient plan of care was discussed with the attending physician, Dr. Barakat. Soraya Alejandro DO, PGY-1 Attending Provider Attestation/Addendum Patient seen and examined with resident physician Dr. Alejandro. Note reviewed, agree with findings and recommendations. Patient currently seen in ICU under tele status. On nasala canula. Clinically looks rather euvolemic. He has a history of Castleman syndrome. Continue with fluids. s/p thoracentesis. Creatinine improved. BP better. Continue to monitor urine output, creatinine closely. dc planning per primary team
[2025-09-11] MEDS: cefTRIAXone/D5w 2gm 2 GM/50 ML BAG IV (09:45)
[2025-09-11] MEDS: Magnesium Sulfate 2 GM Ivpb 2 GM/50 ML BAG IV (09:45)
[2025-09-11] MEDS: APIXABAN 2.5 MG TABLET 5 MG PO ×2 (09:46→20:44)
--- NOTE | 2025-09-11 13:22 | ESPR_ITS ---
<Statement entered by Mark Torrez MD - 09/11/25 15:07> ICU downgrade. Seen and examined at bedside and patient saturating 99% on 3 L nasal cannula. While in ICU underwent bilateral thoracentesis and had more than 1 L output from each side that consisted of bloody/chylous material that was sent to lab for analysis. Contained approximately 4700 WBC, both samples and 30,000 and 40,000 RBCs in either container. Analysis showed that pleural fluid is positive per lights criteria for exudative effusion. 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 In addition, confirmed that IgG titers were negative for cocci after speaking with UCD and so fluconazole was discontinued. Blood pressure on softer side and will continue to monitor with midodrine 10 mg p.o. 3 times daily and rate currently controlled with cardiology following. CBC showing improving leukocytosis and stable hemoglobin, CHEM panel showing improving renal function and otherwise also unremarkable. Will follow-up pleural fluid cultures and continue Rocephin at this time. ----- Note reviewed and agree with care plan as documented. Please refer to the note below for further details. Plan discussed with attending physician Dr. Kendra Torrez MD PGY-2 Internal Medicine Documentation for date of: 09/11/25 Subjective Subjective Interval history: Downgraded overnight from ICU. Today patient was seen and bedside. Saturating 99% on 3 L nasal cannula. Blood pressure 104/67 with HR 109. Patient reports improved shortness of breath s/p bilateral thoracentesis. Pleural fluids analysis results likely transudative, pending pleural culture. Labs reviewed and noted mild leukocytosis improvement to 13.8, stable H&H. CHEM panel creatinine 1.5, bun 41, GFR 51. Per Oncology may resume methotrexateand this IV IL-6 inhibitor infusion for Castleman syndrome upon discharge since UCDavis cocci IgG is negative. Hence fluconazole discontinued due to IgG titer has been negative. Per cardiology recommend resuming home diltiazem,but will continue to hold due to soft blood pressure.Will continue to monitor BP on midodrine 10 mg p.o. 3 times daily Exam Vital Signs Temp Pulse Resp BP Pulse Ox O2 Del Method O2 Flow Rate 97.1 F 122 H 30 H 95/57 L 95 Nasal Cannula 3 09/11/25 04:00 09/11/25 08:00 09/11/25 08:00 09/11/25 08:00 09/11/25 08:00 09/10/25 16:00 09/11/25 06:44 FiO2 80 09/09/25 18:57 Narrative Exam General: Alert, no acute distress. Saturating 99% on 3 l nasal cannula Skin: Warm, dry, intact. No rash or ecchymoses. Head: Normocephalic, atraumatic. Eye: Normal conjunctiva, PERRL. Throat: Oral mucosa moist. No obvious lesions in oropharynx. Cardiovascular: Regular rate and rhythm, no murmur, +S1/S2. Respiratory: Lungs are clear to auscultation bilaterally, trace crackles, no wheezing. Gastrointestinal: Soft, nontender, non-distended. No guarding or rebound tenderness. Extremities: No edema, no cyanosis, no clubbing. Neuro: Alert and oriented x3.No focal deficits observed. Conversant, moving all extremities. No overt cerebellar signs/incoordination. Psychiatric: Cooperative, appropriate affect Objective Labs 09/11/25 04:29 09/11/25 04:29 Labs: Laboratory Results - last 24 hr 09/10/25 09/11/25 10:00 04:29 WBC 13.8 H RBC 3.29 L Hgb 9.7 L Hct 30.7 L MCV 93 MCH 29.5 MCHC 31.6 RDW Std Deviation 53.7 H Plt Count 425 Neut % (Auto) 83 H Lymph % (Auto) 10 [place] % (Auto) 5 Eos % (Auto) 1 Baso % (Auto) 0 Neut # (Auto) 11.4 H Lymph # (Auto) 1.3 [place] # (Auto) 0.7 Eos # (Auto) 0.1 Baso # (Auto) 0.0 Immature Gran # (Auto) 0.16 H Absolute Nucleated RBC 0.00 Immature Gran % 1 H Nucleated RBC % 0 Sodium 138 Potassium 5.0 Chloride 102 Carbon Dioxide 23.7 Anion Gap 12 BUN 41 H Creatinine 1.5 H Estim Creat Clear Calc 59.0 L eGFR 51 L BUN/Creatinine Ratio 27 H Glucose 100 Calculated Osmolality 285 Calcium 8.9 Corrected Calcium 9.7 Phosphorus 3.9 Magnesium 1.9 Total Bilirubin 0.4 AST 17 ALT 15 Alkaline Phosphatase 159 H Lactate Dehydrogenase 174 Total Protein 7.6 Albumin 3.0 L Globulin 4.6 H Albumin/Globulin Ratio 0.7 L Fluid pH 7.5 ABG Interpretation ABG results: 09/08/25 21:11 VBG pH 7.52 VBG pCO2 38 VBG pO2 36 VBG Base Excess 31 H Quality Measures Quality Measures none Advance care planning discussed with:: patient and spouse Assessment & Plan Assessment Current Active Medications: Generic Name Dose Route Start Last Admin Trade Name Freq PRN Reason Stop Dose Admin Acetaminophen 650 mg 09/08/25 17:08 Acetaminophen 325 Mg Tablet PO 10/08/25 17:07 Q6H PRN Fever >101.5 Apixaban 5 mg 09/08/25 21:00 09/11/25 09:46 Apixaban 2.5 Mg Tablet PO 10/08/25 20:59 5 mg BID DARLENE Administration Bumetanide 1 mg 09/09/25 09:00 Bumetanide Inj 0.25 Mg/Ml Vial 4 Ml IVP 10/09/25 08:59 On Hold: 09/09/25 09:00 QDAY DARLENE Diltiazem HCl 240 mg 09/11/25 13:15 Diltiazem Cd 120 Mg Capcr PO 10/11/25 13:14 QDAY DARLENE Guaifenesin/Dextromethorphan 1 each 09/08/25 17:59 Guaifenesin/Dm Tablet PO 10/08/25 17:58 BID PRN COUGH Ceftriaxone Sodium/Dextrose 2 gm in 50 mls @ 100 mls/hr 09/09/25 09:29 09/11/25 09:45 Rocephin/D5w 2gm IV 09/16/25 09:28 100 mls/hr QDAY DARLENE Administration Ipratropium [place] 0.5 mg 09/08/25 23:00 09/11/25 06:44 Ipratropium Rt 0.5 Mg/ 2.5 Ml Nebu INH 10/08/25 22:59 0.5 mg Q8HRRT DARLENE Administration Levalbuterol HCl 1.25 mg 09/08/25 23:00 09/11/25 06:44 Levalbuterol Rt 1.25 Mg/0.5 Ml Nebu INH 10/08/25 22:59 1.25 mg Q8HRRT DARLENE Administration Midodrine 10 mg 09/11/25 14:00 Midodrine 5 Mg Tablet PO 10/11/25 13:59 TID DARLENE Sodium Chloride 3 ml 09/08/25 17:51 09/08/25 23:07 Sodium Chloride Rt Dominique 0.9% 3 Ml Nebu INH 10/08/25 17:50 3 ml PRN PRN Administration SOLN Plan Patient is 65-year-old male with past medical history of A-fib, status post pacemaker placement (2006, with [address] 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 Admitted for acute hypoxic respiratory failure secondary to pleural effusion. Upgraded to ICU progressive hypotension. Patient stabilized now downgraded to telemetry for further evaluation and management. # AHRF (resolving) #Bilateral pleural effusion s/p thoracentesis (resolve) #Bibasilar pneumonia #Castleman syndrome Ddx chylothorax, bacterial infection, compression atelectasis 2/2 bilateral pleural effusions, or empyema formation On admission: patient presented initially to with worsening shortness of breath associated with increase sputum and cough. Denies fever, chills, recent sick contact. Patient worsening dypnea likely due to bilateral pleural effusion. Patient work of breathing will likely improve after getting therapeutic thoracentesis. Dyspea and increae work on breathing improve significantly status postthoracentesis. -Influenza A and B negative. UCDavis Coccidioides IgG Antibody is negative, hence IgG was false positive. Hence fluconazole discontinued. -PSI/PORT score 137 points- Risk Class V (high risk) , 27.0-29.2% mortality.? 09/[address]; Moderate to large bilateral pleural effusions, mild heart failure, extensive mediastinal lymphadenopathy 09/09 CXR: No pneumothorax post thoracentesis, no pneumothorax post thoracentesis 09/09 Thoracentesis : Right post pleural space 1,500cc -pleural WBC 4710, pleural RBC 30K, pleural total protein 4.2, LDH 303, glucose 125, amylase 29 09/10 Thoracentesis: Left post pleural space 1,300-pleural WBC 4770, RBC 40K, total protein 4.5, LDH 213, glucose 107. US guided thora (chylous) pleural fluid analysis - Pleural fluid analysis Plan - Ceftriaxone 3g IV (09/09- - Guaifenesin p.o. twice daily as needed, - Ipratropium 0.5 mg inhaled every 8 hours and levalbuterol 1.25mg INH Q8HRRT - Pleural fluid analysis, pending cultures #Extensive Mediastinal Lymphadenopathy #Castleman syndrome #Coagulopathy (resolving) #CT finding bilateral metastatic pulmonary nodules lymphoproliferative disorder undergoing extensive treatment at [facility] including immunosuppressive drugs therapy.Oncology team aware the patient?s valley fever titer results. As the patient is unable to resume the IL-6 inhibitor infusion due to the positive valley fever/coccidioidomycosis result. - 03/15/25 Chest CTA - extensive mediastinal lymphadenopathy, including anterior mediastinum, aortopulmonary window, high left periaortic, tracheobronchial and subcarinal as well as adjacent to the descending thoracic aorta, bilateral subcentimeter pulmonary nodules - 05/25/25 Chest CTA - Extensive tumor mediastinal lymphadenopathy and biilateral metastatic pulmonary nodules. At least 10 subcentimeter metastatic pulmonary nodules - Chest CT 09/08/2025 again noted extensive mediastinal lymphadenopathy - AST 54, alkaline phosphatase 211, lactate dehydrogenase 342. Elevated inflammatory markers due to systemic inflammation related to immune evaluation from not receiving IV transfusion for Castleman syndrome. -On adm: PT 12.4,plt 489, Absolute neutrophil 83, [place] 1, immature granulocyte 2% Plan - Follow-up oncologist outpatient #Atrial fibrillation, NOT rate controlled, chronic #Sick sinus syndrome s/p pacemaker placement EKG showed atrial fibrillation with a rate of 87 and a QTc of 403, no acute ST segment changes Pt has pacemaker placed in 2006 which has been replaced [address] Marquez CHADsVAS score 4 -?6.7% risk of stroke/TIA/systemic embolism HAS BLED score 2 Plan - Eliquis 5 mg p.o. twice daily - Diltiazem 240 mg p.o. daily (HELD) - Metoprolol tartrate 100 mg every 12 hours (HELD) - Digoxin 0.125 mg po daily ( HELD) - Hold medications due to soft BP plan to resume when patient hypotension resolved - Cardiology consulted - Keep K > 4 and Mg > 2 #HFpEF EF 55-60% (02/2023) - stable Dx Echo on 03/17/2025 showed EF 55-60%. Diastolic function difficult to evaluate due to A-fib. Severe biatrial dilation. Repeat ECHO showed similar function PLAN - Strict ins and outs - holding home meds (lisinopril and digoxin) due to VIOLETA #VIOLETA (resolving) Ddx volume depletion/dehydration, worsening Castleman's Cr 3>1.9>1.5 BUN 68>43>41 - Renal US (bilateral renal cortical thickening, mild bilateral renal scar formation, small right kidney, no hydronephrosis) Plan - CTM CMP - Holding diuresis - Avoid nephrotoxic agents - renally dose medications -Holding home meds (lisinopril and digoxin) due to VIOLETA #Pre-diabetes A1c 06/30/2025 6.2; blood glucose 120-140. Not on insulin at home Plan - No intervention at this time #Normocytic anemia, chronic On admission Hgb10 and HCT 31.2 with MCV 93 - Daily CBC -Type and screen, and transfuse hemoglobin less than 7 #Shock - resolve #Hypotension Ddx distributive iso of sepsis source is most likely bacterial pneumonia, may be secondary to, or contributed by, decreased fluid intake reflected by creatinine of 3.2, less likely hypovolemic shock, hemoglobin 10.0 and stable, no suspicion for active bleeding, less likely obstructive (would require massive pleural effusions increasing intrathoracic pressure decreasing preload). Dx 3/4 SIRS with lactic acidosis and suspected HR >90, RR >20, WBC 17.6, LA 2.4. blood cx x2, urine cx, -CXR. Stopped levophed Plan - Ceftriaxone 2g IV QD (09/09-), - midodrine 10 mg p.o. 3 times daily Hospital management: Lines: peripheral IV Diet: Diet low fat Bowel: Senna GI prophylaxis: pantoprazole DVT prophylaxis: Eliquis 5mg Disposition: dowgrade from surg to tele s/p thoracentesis CODE STATUS: Full code Patient assessed under supervision of attending physician and senior resident Dr. Torrez PGY-2 Elaine Gomez MD PGY-1, Internal Medicine Please note: this document was transcribed using voice recognition technology; minor inaccuracies may be present. Attending Provider Attestation/Addendum I have examined the patient, reviewed labs and imaging findings, discussed the case with the resident(s), and reviewed entered orders. I agree with the plan of care as outlined in this note. Dr. Kendra MD
--- NOTE | 2025-09-11 13:31 | PC.SS ---
SW conducted bedside contact with the patient conduct initial assessment and to discuss discharge planning.? Patient currently in ICU.? Spouse at bedside.? [employer]IST obtained information from patient?s spouse, Luana Pena .? Patient resides at home with spouse.? Patient utilizes a walker to assist with ambulation.? Patient possesses home oxygen.? Patient possesses the ability to complete ADL?s independently.? Patient?s surrogate medical decision maker is spouse, Luana Pena.? Patient?s PCP is Miki Broussard.? Patient?s batter mixer helper is Dr. Miller.? Patient does not participate with dialysis.? Patient utilizes [facility] for medication services.? Plan is for the patient to return home at the time of discharge.? Family will provide transportation on behalf of the patient.? No further discharge needs identified by the patient.? No further intervention required at this time, transition social worker will be available to address any further concerns.? Next of Kin: Luana Pena D/C Plan: Home
[2025-09-11] MEDS: MIDODRINE 5 MG TABLET 10 MG PO ×2 (14:03→20:44)
--- NOTE | 2025-09-11 16:39 | ESPR_ITS ---
<Statement entered by Kervin Marquez MD - 09/11/25 23:40> I personally examined this patient evaluated in intensive care and as a telemetry overflow patient admitted to hospital with large pleural effusions both drained successfully excellently patient is feeling better generally weak his blood pressure is normally very high he is only now been receiving low-dose of medications blood pressure on the low side 110 systolic but he will probably bounce back higher his heart rate is 130 possibly causing some of the low blood pressure readings recommend resuming his diltiazem and beta-blockers along with low-dose digoxin for rate control once the rate is controlled below 100 blood pressure should improve on itself not concerned about hypotension here can continue midodrine for now but I expect ultimately for him to require high doses of his blood pressure medications prior to discharge. At this point rate control should be instituted since the heart rate is 120. Beats per minute. Patient is also clinically somewhat dry do not use any diuretics carding and hydrate if necessary. Evaluated patient with resident physician PGY 2 Dr. Cline will continue to monitor the patient closely Documentation for date of: 09/11/25 Subjective Subjective Interval history: Patient is a 65-year-old male past medical historyA-fib, status post pacemaker placement (2006, with [address] 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 Patient was recently discharged from hospital on 09/04 after being treated for volume overload and A- fib. He is returning now with worsening symptoms. He noted that at home, his oxygen saturation was in the 80s while on 3 L of nasal cannula, and he was unaware that he could increase the flow rate. Complains of feeling dehydrated there is concern for overdiuresis from his last admission as creatinine is elevated at 3.2. Repeat chest imaging shows worsening bilateral pleural effusions. Patient was desaturating on 72% on room air. Placed on 6 L face mask ultimately improved to 93%. At bedside he was on room air saturations 86%. EKG showed controlled rate 87 irregular rhythm atrial fibrillation. Sodium 136, potassium 5.1, BUN 65, creatinine 3.2 (baseline appears to be around 1.2). Troponins were negative BNP normal limits. On physical exam he does not appear to be fluid overloaded. Recommend that patient be allowed to have some fluid intake due to VIOLETA in setting of possible overdiuresis. Due to soft blood pressure recommend holding digoxin and lisinopril. Okay to continue diltiazem, metoprolol tartrate, spironolactone for proper rate control. 09/09: Patient examined at bedside. He underwent right-sided thoracentesis today. Approximately 1500 cc removed. Pleural fluid studies were consistent with an exudative effusion per lights criteria. Possibly due to his underlying Castleman syndrome. Symptoms have significantly improved with less shortness of breath. Telemetry was reviewed he remains in atrial fibrillation rate controlled around 90s. Patient remains on Levophed however has been titrated down slightly since yesterday. Creatinine down trended 3.0. Primary care team will most likely repeat thoracentesis on left. Continue to hold Bumex, metoprolol, digoxin, lisinopril, and dilt due to hypotension. Resume slowly as BP improves. 09/10: Patient examined at bedside. Respiratory distress significantly improved. Underwent left thoracentesis today with output of 1.3 L of fluid. Oxygen weaned from 6 L to 3 L nasal cannula saturating adequately 94%. Telemetry reviewed, patient remains in atrial fibrillation, heart rate well- controlled 105?110. Denies any chest pain or palpitations. Sodium 140, potassium 5.0, creatinine downtrended to 1.9. Repeat chest x-ray shows major improvement in congestion and pleural effusions. Lungs clear to auscultation on physical exam. He has been titrated off Levophed blood pressure 90/49 at bedside. Morning blood pressure with midodrine 5mg TID PRN. Plan to resume rate control agents as blood pressure improves. Starting with diltiazem. 09/11: Patient continues to improve slowly. Oxygen requirements are improving at bedside however he is on 4 L oxy mask saturating 94%. Blood pressure improved since yesterday 104/67. Telemetry reviewed he remains in A-fib rate around 110. Primary care team may resume home digoxin dose in addition to diltiazem 120mg, metoprolol 25 mg. Can increase diltiazem dose as blood pressure continues to improve. He was started on midodrine 5 mg 3 times daily while in ICU. The patient denies any chest discomfort, no palpitations, no shortness of breath. Creatinine downtrended 1.5, potassium 5.0. No Bumex at this time. Exam Vital Signs Temp Pulse Resp BP Pulse Ox O2 Del Method O2 Flow Rate 97.1 F 99 24 H 104/67 96 Nasal Cannula 3 09/11/25 04:00 09/11/25 14:47 09/11/25 14:47 09/11/25 14:03 09/11/25 14:47 09/10/25 16:00 09/11/25 14:47 FiO2 80 09/09/25 18:57 Narrative Exam General: Alert and oriented x3. No acute distress, cooperative HEENT: NCAT, No JVD noted. Mucosa moist. Pupils are equal and reactive to light bilaterally Cardiovascular: Normal S1 and S2. Regular rate and rhythm. Respiratory: Lungs are clear to auscultation bilaterally. No wheezing or crackles heard. On oxymask 4L Abdomen: Soft, nontender, not distended, normal bowel sounds. Skin: Warm to touch, dry, no rashes noted Musculoskeletal: No gross injuries. Able to move all 4 extremities. No pitting edema Neuro: Alert and oriented x3. No focal neuro deficits. Psych: Normal affect and mood Objective Labs 09/11/25 04:29 09/11/25 04:29 Labs: Laboratory Results - last 24 hr 09/11/25 04:29 WBC 13.8 H RBC 3.29 L Hgb 9.7 L Hct 30.7 L MCV 93 MCH 29.5 MCHC 31.6 RDW Std Deviation 53.7 H Plt Count 425 Neut % (Auto) 83 H Lymph % (Auto) 10 [place] % (Auto) 5 Eos % (Auto) 1 Baso % (Auto) 0 Neut # (Auto) 11.4 H Lymph # (Auto) 1.3 [place] # (Auto) 0.7 Eos # (Auto) 0.1 Baso # (Auto) 0.0 Immature Gran # (Auto) 0.16 H Absolute Nucleated RBC 0.00 Immature Gran % 1 H Nucleated RBC % 0 Sodium 138 Potassium 5.0 Chloride 102 Carbon Dioxide 23.7 Anion Gap 12 BUN 41 H Creatinine 1.5 H Estim Creat Clear Calc 59.0 L eGFR 51 L BUN/Creatinine Ratio 27 H Glucose 100 Calculated Osmolality 285 Calcium 8.9 Corrected Calcium 9.7 Phosphorus 3.9 Magnesium 1.9 Total Bilirubin 0.4 AST 17 ALT 15 Alkaline Phosphatase 159 H Lactate Dehydrogenase 174 Total Protein 7.6 Albumin 3.0 L Globulin 4.6 H Albumin/Globulin Ratio 0.7 L ABG Interpretation ABG results: 09/08/25 21:11 VBG pH 7.52 VBG pCO2 38 VBG pO2 36 VBG Base Excess 31 H Quality Measures Quality Measures none Advance care planning discussed with:: patient Assessment & Plan Assessment Current Active Medications: Generic Name Dose Route Start Last Admin Trade Name Freq PRN Reason Stop Dose Admin Acetaminophen 650 mg 09/08/25 17:08 Acetaminophen 325 Mg Tablet PO 10/08/25 17:07 Q6H PRN Fever >101.5 Apixaban 5 mg 09/08/25 21:00 09/11/25 09:46 Apixaban 2.5 Mg Tablet PO 10/08/25 20:59 5 mg BID DARLENE Administration Bumetanide 1 mg 09/09/25 09:00 Bumetanide Inj 0.25 Mg/Ml Vial 4 Ml IVP 10/09/25 08:59 On Hold: 09/09/25 09:00 QDAY DARLENE Diltiazem HCl 240 mg 09/11/25 13:15 09/11/25 14:01 Diltiazem Cd 120 Mg Capcr PO 10/11/25 13:14 Not Given On Hold: 09/11/25 14:01 QDAY DARLENE Guaifenesin/Dextromethorphan 1 each 09/08/25 17:59 Guaifenesin/Dm Tablet PO 10/08/25 17:58 BID PRN COUGH Ceftriaxone Sodium/Dextrose 2 gm in 50 mls @ 100 mls/hr 09/09/25 09:29 09/11/25 09:45 Rocephin/D5w 2gm IV 09/16/25 09:28 100 mls/hr QDAY DARLENE Administration Ipratropium [place] 0.5 mg 09/08/25 23:00 09/11/25 14:46 Ipratropium Rt 0.5 Mg/ 2.5 Ml Nebu INH 10/08/25 22:59 0.5 mg Q8HRRT DARLENE Administration Levalbuterol HCl 1.25 mg 09/08/25 23:00 09/11/25 14:46 Levalbuterol Rt 1.25 Mg/0.5 Ml Nebu INH 10/08/25 22:59 1.25 mg Q8HRRT DARLENE Administration Midodrine 10 mg 09/11/25 14:00 09/11/25 14:03 Midodrine 5 Mg Tablet PO 10/11/25 13:59 10 mg TID DARLENE Administration Sodium Chloride 3 ml 09/08/25 17:51 09/08/25 23:07 Sodium Chloride Rt Dominique 0.9% 3 Ml Nebu INH 10/08/25 17:50 3 ml PRN PRN Administration SOLN Plan Patient is 65-year-old male with past medical history of A-fib, status post pacemaker placement (2006, with [address] 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 Admitted for acute hypoxic respiratory failure secondary to pleural effusion. Cardiology consulted for atrial fibrillation and concern for heart failure exacerbation. 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 Denies fever, chills, recent sick contact. Patient worsening dypnea likely due to bilateral pleural effusion. Patient work of breathing will likely improve after getting therapeutic thoracentesis. Chest x-ray showed chest x-ray bibasilar pneumonia/or edema large bilateral pleural effusion. Mild enlargement cardiac contour with prominent vascular congestion. PSI/PORT score 137 points- Risk Class V (high risk) , 27.0-29.2% mortality.? 09/09--right thoracentesis removed approximately 1500 cc fluid. Consistent with exudative effusion. 09/10--underwent left thoracentesis removal of 1300 cc fluid. -start metoprolol succinate 25mg daily -may resume home digoxin dose -started diltiazem 30mg today---increase dose as BP allows -continue antibiotics - Hold patient's Bumex in setting of VIOLETA and concern for overdiuresis #Hypertension Patient has a history of hypertension which he takes lisinopril at home. BP on admission is 90/63 downtrending to 85/61 Plan -start metoprolol 25 mg daily - Midodrine 2.5 mg p.o. 3 times daily as needed for SBP less than 90 and MAP present 65 #Atrial fibrillation, rate controlled, chronic #Sick sinus syndrome s/p pacemaker placement EKG is paced sinus rhythm Pt has pacemaker placed in 2006 which has been replaced [address] Marquez CHADsVAS score 4 -?6.7% risk of stroke/TIA/systemic embolism HAS BLED score 2 - Metoprolol succinate 25mg daily - Eliquis 5 mg p.o. twice daily - Diltiazem 120mg daily - resume Digoxin 0.125 mg po daily -hold lisinopril - Keep K > 4 and Mg > 2 #HFpEF EF 55-60% Echo on 03/17/2025 showed EF 55-60%. Diastolic function difficult to evaluate due to A-fib. Severe biatrial dilation. -CTM -does not appear to be volume overloaded on exam -hold BUMEX -repeat echo pending #Normocytic anemia, chronic #Castleman syndrome #Coagulopathy #CT finding bilateral metastatic pulmonary nodules #VIOLETA Primary care team to manage above conditions and ongoing care needs. The patient's management plan was discussed with my attending physician Dr. Marquez. Naina Sher, PGY-2
[2025-09-11] MEDS: METOPROLOL SUCCINATE XL 25 MG TABCR PO ×2 (20:44→23:18)
[2025-09-11] MEDS: DIGOXIN 0.125 MG TABLET PO (20:44)
[2025-09-11] MEDS: ONDANSETRON INJ 2 MG/ML INJ 2 ML 4 MG IVP (23:17)
[2025-09-12] VITALS (19 sets, daily range): BP systolic 98–132; BP diastolic 57–84; PULSE 90–132; RESP 16–30; TEMP 35.9–36.7; O2SAT 90–99; BMI 29.7
[2025-09-12] MEDS: LEVALBUTEROL RT 1.25 MG/0.5 ML NEBU INH ×2 (06:56→23:24)
[2025-09-12] MEDS: IPRATROPIUM RT 0.5 MG/ 2.5 ML NEBU INH ×2 (06:56→23:23)
[2025-09-12] MEDS: Magnesium Sulfate 2 GM Ivpb 2 GM/50 ML BAG IV (08:26)
[2025-09-12] MEDS: METOPROLOL SUCCINATE XL 25 MG TABCR PO (08:27)
[2025-09-12] MEDS: DIGOXIN 0.125 MG TABLET PO (08:27)
[2025-09-12] MEDS: APIXABAN 2.5 MG TABLET 5 MG PO ×2 (08:27→20:46)
--- NOTE | 2025-09-12 08:45 | PD.RESPRO ---
Documentation for date of: 09/12/25 Subjective Subjective Interval history: History of present illness: 65-year-old male past medical history A-fib status [place] pac[place] [address] 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 The patient was discharged on 09/04/2025 following treatment of superimposed pneumonia on a right sided pleural effusion. It was reported that at that time the thoracentesis was unable to be performed due to anatomic reasons. He was discharged on home oxygen and continued on fluconazole with a positive Coccidioides IgM antibody. The patient was advised to follow up with his PCP for further evaluation of Coccidioides IgG and to resume treatment for management once the results were available. However, the patient reported that the PCP was unable to obtain IgG levels. Of note, the patient has a history of Castleman syndrome and was receiving infusions of infliximab which have been paused for the past 3 months due to an abscess on his buttock that has been followed with wound care. Wound care recently cleared the patient to resume his infusions. Today he presented after progressively worsening shortness of breath. It was reported the patient was using 3 L at home and required 6 L upon arrival to the ED followed by 13 L oxime mask in order to maintain his saturations around 90. He was also found to have a creatinine of 3.2 (baseline 1.0-1.2). The patient's MAP was not maintaining above 65. He was maintaining a MAP less than 60 after receiving 12.5 mg of midodrine and gentle fluid resuscitation of 250 mL. Lactate level had started going up, 2.4. Unable to administer further IV fluid as patient has bilateral crackles and is on high flow nasal cannula. The patient was transferred to ICU for pressor support. Nephrology consulted by hospitalist team for VIOLETA. 09/09/25: Patient seen and assessed in ICU. On BiPAP. Denies recent diarrhea or vomiting. BUN 68, creatinine improved to 3.0 from 3.2 (baseline 1.0-1.3 per previous admission). Home medications include Bumex 1 mg daily, spiranolactone 25 mg daily, lisinopril 20 mg daily, and digoxin 125 mcg daily. Does not see a process engineering manager, no history of renal conditions. UA showed trace urine protein and hyaline casts. FeNa and FeUrea indicative of pre-renal azotemia, likely ATN. 09/10/25: Patient seen and assessed in ICU. Off pressors. On 6L NC s/p right thoracentesis yesterday. UOP 2.2L. BUN 43, creatinine 1.9 (from 3.0) s/p IVF maintenance. No need to continue IVF, encourage oral rehydration. 09/11/25: Patient seen and assessed in ICU, on telemetry. BP 93/60s at bedside, on midodrine 5 mg TID. UOP 1.8L. BUN 41, creatinine 1.5, improving. Patient is medically stable for discharge from nephrology standpoint. Explained to patient that he may have underlying nephropathy, is welcomed to follow up outpatient at clinic 1-2 weeks after discharge. 09/12/25: Patient seen and assessed on telemetry. BP stable off midodrine this morning. Maintaining good UOP. Potassium 5.9, given hyperkalemia cocktail. Creatinine 1.6, stable. Encouraged oral hydration (oral intake 480 cc). Follow up renal panel in afternoon. Exam Vital Signs Temp Pulse Resp BP Pulse Ox O2 Del Method O2 Flow Rate 96.6 F L 115 H 18 98/74 97 Oxy Mask 3 09/12/25 08:00 09/12/25 08:27 09/12/25 08:00 09/12/25 08:27 09/12/25 08:00 09/12/25 08:00 09/12/25 06:56 FiO2 80 09/09/25 18:57 Narrative Exam Physical Exam General: Awake and in no acute distress. On 3L O2. HEENT: Normocephalic, atraumatic, mucous membranes dry. Heart: Irregular rate and rhythm, normal S1 and S2, no murmurs appreciated. Lungs: CTAB. Abdomen: Soft, nondistended, nontender, positive bowel sounds. No guarding or rebound tenderness. Neurologic: No gross neurological deficit, and patient able to move all 4 extremities. Extremities: No edema. Skin: No rash or ecchymoses. Objective Labs 09/13/25 04:05 09/13/25 04:05 Labs: Laboratory Results - last 24 hr 09/09/25 11:15 Misc Test Result See Sep Rpt ABG Interpretation ABG results: 09/08/25 21:11 VBG pH 7.52 VBG pCO2 38 VBG pO2 36 VBG Base Excess 31 H Quality Measures Quality Measures none Advance care planning discussed with:: patient Assessment & Plan Assessment Current Active Medications: Generic Name Dose Route Start Last Admin Trade Name Freq PRN Reason Stop Dose Admin Acetaminophen 650 mg 09/08/25 17:08 Acetaminophen 325 Mg Tablet PO 10/08/25 17:07 Q6H PRN Fever >101.5 Apixaban 5 mg 09/08/25 21:00 09/12/25 08:27 Apixaban 2.5 Mg Tablet PO 10/08/25 20:59 5 mg BID DARLENE Administration Bumetanide 1 mg 09/09/25 09:00 Bumetanide Inj 0.25 Mg/Ml Vial 4 Ml IVP 10/09/25 08:59 On Hold: 09/09/25 09:00 QDAY DARLENE Digoxin 0.125 mg 09/11/25 19:30 09/12/25 08:27 Digoxin 0.125 Mg Tablet PO 10/11/25 19:29 0.125 mg QDAY DARLENE Administration Diltiazem HCl 120 mg 09/12/25 09:00 Diltiazem Cd 120 Mg Capcr PO 10/12/25 08:59 QDAY DARLENE Guaifenesin/Dextromethorphan 1 each 09/08/25 17:59 Guaifenesin/Dm Tablet PO 10/08/25 17:58 BID PRN COUGH Ceftriaxone Sodium/Dextrose 2 gm in 50 mls @ 100 mls/hr 09/09/25 09:29 09/11/25 09:45 Rocephin/D5w 2gm IV 09/16/25 09:28 100 mls/hr QDAY DARLENE Administration Magnesium Sulfate 2 gm in 50 mls @ 25 mls/hr 09/12/25 07:58 09/12/25 08:26 Magnesium Sulfate Ivpb IV 09/12/25 09:57 25 mls/hr X1 ONE Administration Ipratropium [place] 0.5 mg 09/08/25 23:00 09/12/25 06:56 Ipratropium Rt 0.5 Mg/ 2.5 Ml Nebu INH 10/08/25 22:59 0.5 mg Q8HRRT DARLENE Administration Levalbuterol HCl 1.25 mg 09/08/25 23:00 09/12/25 06:56 Levalbuterol Rt 1.25 Mg/0.5 Ml Nebu INH 10/08/25 22:59 1.25 mg Q8HRRT DARLENE Administration Metoprolol Succinate 25 mg 09/11/25 19:30 09/12/25 08:27 Metoprolol Succinate Xl 25 Mg Tabcr PO 10/11/25 19:29 25 mg QDAY DARLENE Administration Midodrine 10 mg 09/11/25 14:00 09/12/25 05:06 Midodrine 5 Mg Tablet PO 10/11/25 13:59 Not Given TID DARLENE Ondansetron HCl 4 mg 09/11/25 21:25 09/11/25 23:17 Ondansetron Inj 2 Mg/Ml Inj 2 Ml IVP 10/11/25 21:24 4 mg Q8HR PRN Administration NAUSEA OR VOMITING Protocol Sodium Chloride 3 ml 09/08/25 17:51 09/08/25 23:07 Sodium Chloride Rt Dominique 0.9% 3 Ml Nebu INH 10/08/25 17:50 3 ml PRN PRN Administration SOLN Plan Patient is a 65 year old male with PMH of A-fib status [place] [address] Marquez, hypertension, HFpEF with EF 55-60%, and Castleman syndrome who presented with worsening shortness of breath, admitted for management of AHRF. Upgraded to ICU for hypotension requiring pressor support. Nephrology consulted for VIOLETA. #VIOLETA (resolving) #Pre-renal azotemia likely ATN secondary to overdiuresis #Possible underlying diabetic nephropathy - Does not follow process engineering manager or have history of renal problems - BUN 65, creatinine 3.2 on admission -> 3.0 -> 1.9 (baseline 1.0-1.3) - Creatinine clearance 30.1 - UA showed hyaline casts with trace protein, possible underlying nephropathy secondary DM (A1c 6.2 in 06/2025, previously in prediabetic range) - Renal US showed small right kidney with bilateral renal cortical thinning and mild bilateral scar formation, no hydronephrosis. - FeNa inaccurate as patient has been on diuretics. FeUrea 13.6% indicating pre-renal disease. - S/p Bumex 1 mg IV x1, LR 250 bolus in ED, IV LR maintenance 09/09 Plan: - No need for IVF - Encourage oral hydration - Avoid nephrotoxic agents - Renally dose medications - Strict INOs - Daily weights - Follow AM renal panel #Hyperphosphatemia (resolved) - Phosphorus 5.6 -> 4.0 s/p sevelamer 800 x1 - In setting of VIOLETA Plan: - Continue to monitor #Hyperkalemia - Potassium 5.9 - In setting of VIOLETA Plan: - Hyperkalemia cocktail: insulin 5 units, albuterol, [place] - Follow up repeat renal panel #Sepsis leading to distributive shock secondary to #Pneumonia #Leukocytosis #A-fib #Sick sinus syndrome status post pacemaker placement #HFpEF EF 55-60% #Acute hypoxic respiratory failure (resolving) #Bilateral Pleural Effusions - resolved s/p bilateral thoracentesis #Pneumonia #Extensive Mediastinal Lymphadenopathy #Pulmonary Nodules #Diabetes #Castleman syndrome - was on infliximab but has not been receiving infusions for the past 3 months #Chronic normocytic anemia - Defer management to primary team Thank you for your consultation, please do not hesitate to reach out if you have any question or concern. Patient plan of care was discussed with the attending physician, Dr. Baraakt. Soraya Alejandro DO, PGY-1 Attending Provider Attestation/Addendum Patient seen and examined with resident physician Dr. Alejandro. Note reviewed, agree with findings and recommendations. Patient currently seen in ICU under tele status. On nasala canula. Clinically looks rather euvolemic. He has a history of Castleman syndrome. Continue with fluids. s/p thoracentesis. Creatinine improved. BP better. Continue to monitor urine output, creatinine closely.
[2025-09-12 09:49] LABS: Basophils # (Auto) 0.1 Thou/mm3 (0.0-0.2); Basophils % (Auto) 0 % (0-2.5); Eosinophils # (Auto) 0.2 Thou/mm3 (0.0-0.5); Eosinophils % (Auto) 1 % (0-10); Hematocrit 34.2 % (41.0-53.0); Hemoglobin 11.1 g/dL (13.5-16.0); Immature Granulocytes Auto 0.21 Thou/mm3 (0.00-0.00); Lymphocytes # (Auto) 1.6 Thou/mm3 (1.0-4.8); Lymphocytes % (Auto) 8 % (10-50); Mean Corpuscular HGB Conc 32.5 g/dl (31.0-37.0); Mean Corpuscular Hemoglobin 29.8 pg (25.0-35.0); Mean Corpuscular Volume 92 fL (80-100); Monocytes # (Auto) 0.9 Thou/mm3 (0.0-0.8); Monocytes % (Auto) 5 % (0-12); Neutrophils # (Auto) 16.7 Thou/mm3 (1.8-7.7); Neutrophils % (Auto) 85 % (37-80); Nucleated Red Blood Cell # 0.00 Thou/mm3 (0.00-0.00); Nucleated Red Blood Cell % 0 /100 WBC (0); Platelet Count 496 Thou/mm3 (140-440); RDW Standard Deviation 51.8 fL (35.1-43.9); Red Blood Count 3.73 Miln/mm3 (4.50-5.90); White Blood Count 19.7 Thou/mm3 (3.8-10.6)
[2025-09-12 10:06] LABS: Alanine Aminotransferase 16 U/L (10-49); Albumin, Serum 3.0 gm/dL (3.4-4.8); Albumin/Globulin Ratio 0.6 (1.2-2.2); Alkaline Phosphatase 168 U/L (46-116); Anion Gap 14 (7-16); Aspartate Amino Transferase 23 U/L (0-34); BUN/Creatinine Ratio 26 Ratio (12-20); Bilirubin,Total 0.4 mg/dL (0.3-1.2); Blood Urea Nitrogen 42 mg/dL (9-23); Calcium 8.9 mg/dL (8.3-10.6); Calcium (Corrected) 9.7 mg/dL (8.5-10.1); Carbon Dioxide 21.0 mMol/L (20.0-31.0); Chloride 100 mMol/L (98-107); Creatinine (Component) 1.6 mg/dL (0.6-1.3); Estimated Creatinine Clearance 55.4 mL/min (>60); Globulin 5.3 gm/dL (2.3-3.5); Glucose 132 mg/dL (74-106); Osmolality,Calculated 282 (275-295); Potassium 5.9 mMol/L (3.4-5.1); Sodium 135 mMol/L (136-145); Total Protein 8.3 gm/dL (5.7-8.2); eGFR 47 See Note
[2025-09-12] MEDS: cefTRIAXone/D5w 2gm 2 GM/50 ML BAG IV (10:42)
[2025-09-12] MEDS: PATIROMER CALCIUM 8.4 GM PACKET PO (12:20)
[2025-09-12] MEDS: DEXTROSE 50%-WATER INJ 50 ML SYRINGE 100 ML IV (12:41)
[2025-09-12] MEDS: INSULIN HUM REGULAR 1 UNIT/0.01 ML (PER UNIT) 5 UNIT IV (12:42)
--- NOTE | 2025-09-12 13:31 | ESPR_ITS ---
<Statement entered by Debra Benitez MD - 09/12/25 16:00> Patient was seen and examined at bedside. His oxygen requirements went down to 2L. He is lying in bed comfortably. So far he is -1 L. His blood pressure still on the soft side 98/74 and he is getting midodrine. His labs showed significant improvement of his serum creatinine antedates 1.2. His heart rate however still above 115 and this most likely secondary to Castleman syndrome reactivation. Currently he is on diltiazem, metoprolol, and digoxin in an attempt to control his heart rate. At this time we will continue with his Bumex and Eliquis for his heart failure we spoke with the family they mentioned that the patient has an appointment with his oncologist on Monday in [place]. For that reason we anticipated discharge tomorrow if the patient clinically stable so he can follow-up with his oncologist as he might be scheduled for immunotherapy infusion. - Patient's plan and care discussed with my attending, Dr. Kendra Benitez MD Internal Medicine PGY-3 Documentation for date of: 09/12/25 Subjective Subjective Interval history: Overnight patient was tachycardic. The patient was seen and examined at the bedside. Saturating 95% on 2 to 3 L nasal cannula. Patient reports shortness of breath at baseline, minimal cough. CBC noted increased WBC, hemoglobin 11.1, hematocrit 34 point, platelet 496, this last finding likely due to Castleman syndrome. CHEM panel sodium 135 and potassium 5.9, for which patient received 5 units IV regular insulin, albuterol, and patiromer 8.5 mg for hyperkalemia. Otherwise BP stable symptoms per cardiology recommendation resumed all his A-fib medication however decreased diltiazem from 240 to 120 mg due to episode of soft BP over the heart rate maximum in the 110s. Patient has an upcoming appointment with his oncologist on September 15 for his IV infusion for Castleman syndrome. Anticipate discharge in next few days if the patient is vitals are stable and heart rate well-controlled. Exam Vital Signs Temp Pulse Resp BP Pulse Ox O2 Del Method O2 Flow Rate 98.0 F 112 H 16 113/57 L 93 L Oxy Mask 4 09/12/25 12:09/12/25 12:09/12/25 12:25 12:00 09/12/25 12:00 09/12/25 12:00 09/12/25 12:00 FiO2 80 09/09/25 18:57 Narrative Exam General: Alert, mild respiratory distress on 3 L nasal cannula. Skin: Warm, dry, intact. No rash or ecchymoses. Head: Normocephalic, atraumatic. Eye: Normal conjunctiva, PERRL. Throat: Oral mucosa moist. No obvious lesions in oropharynx. Cardiovascular: Regular rate and rhythm, no murmur, +S1/S2. Respiratory: Lungs are clear to auscultation, respirations unlabored, no crackles, no wheezing. Gastrointestinal: Soft, nontender, non-distended. No guarding or rebound tenderness. Extremities: No edema, no cyanosis, no clubbing. Neuro: Alert and oriented x3.No focal deficits observed. Conversant, moving all extremities. No overt cerebellar signs/incoordination. Psychiatric: Cooperative, appropriate affect Objective Labs 09/13/25 04:05 09/13/25 04:05 Labs: Laboratory Results - last 24 hr 09/09/25 09/12/25 11:15 08:50 WBC 19.7 H D RBC 3.73 L Hgb 11.1 L Hct 34.2 L MCV 92 MCH 29.8 MCHC 32.5 RDW Std Deviation 51.8 H Plt Count 496 H D Neut % (Auto) 85 H Lymph % (Auto) 8 L Harmon % (Auto) 5 Eos % (Auto) 1 Baso % (Auto) 0 Neut # (Auto) 16.7 H Lymph # (Auto) 1.6 Harmon # (Auto) 0.9 H Eos # (Auto) 0.2 Baso # (Auto) 0.1 Immature Gran # (Auto) 0.21 H Absolute Nucleated RBC 0.00 Immature Gran % 1 H Nucleated RBC % 0 Sodium 135 L Potassium 5.9 H D Chloride 100 Carbon Dioxide 21.0 Anion Gap 14 BUN 42 H Creatinine 1.6 H Estim Creat Clear Calc 55.4 L eGFR 47 L BUN/Creatinine Ratio 26 H Glucose 132 H Calculated Osmolality 282 Calcium 8.9 Corrected Calcium 9.7 Total Bilirubin 0.4 AST 23 ALT 16 Alkaline Phosphatase 168 H Total Protein 8.3 H Albumin 3.0 L Globulin 5.3 H Albumin/Globulin Ratio 0.6 L Misc Test Result See Sep Rpt ABG Interpretation ABG results: 09/08/25 21:11 VBG pH 7.52 VBG pCO2 38 VBG pO2 36 VBG Base Excess 31 H Quality Measures Quality Measures none Advance care planning discussed with:: patient and spouse Assessment & Plan Assessment Current Active Medications: Generic Name Dose Route Start Last Admin Trade Name Freq PRN Reason Stop Dose Admin Acetaminophen 650 mg 09/08/25 17:08 Acetaminophen 325 Mg Tablet PO 10/08/25 17:07 Q6H PRN Fever >101.5 Apixaban 5 mg 09/08/25 21:00 09/12/25 08:27 Apixaban 2.5 Mg Tablet PO 10/08/25 20:59 5 mg BID DARLENE Administration Bumetanide 1 mg 09/09/25 09:00 Bumetanide Inj 0.25 Mg/Ml Vial 4 Ml IVP 10/09/25 08:59 On Hold: 09/09/25 09:00 QDAY DARLENE Digoxin 0.125 mg 09/11/25 19:30 09/12/25 08:27 Digoxin 0.125 Mg Tablet PO 10/11/25 19:29 0.125 mg QDAY DARLENE Administration Diltiazem HCl 120 mg 09/12/25 09:00 Diltiazem Cd 120 Mg Capcr PO 10/12/25 08:59 QDAY DARLENE Guaifenesin/Dextromethorphan 1 each 09/08/25 17:59 Guaifenesin/Dm Tablet PO 10/08/25 17:58 BID PRN COUGH Ceftriaxone Sodium/Dextrose 2 gm in 50 mls @ 100 mls/hr 09/09/25 09:29 09/12/25 10:42 Rocephin/D5w 2gm IV 09/16/25 09:28 100 mls/hr QDAY DARLENE Administration Ipratropium Sterling 0.5 mg 09/08/25 23:00 09/12/25 06:56 Ipratropium Rt 0.5 Mg/ 2.5 Ml Nebu INH 10/08/25 22:59 0.5 mg Q8HRRT DARLENE Administration Levalbuterol HCl 1.25 mg 09/08/25 23:00 09/12/25 06:56 Levalbuterol Rt 1.25 Mg/0.5 Ml Nebu INH 10/08/25 22:59 1.25 mg Q8HRRT DARLENE Administration Metoprolol Succinate 25 mg 09/11/25 19:30 09/12/25 08:27 Metoprolol Succinate Xl 25 Mg Tabcr PO 10/11/25 19:29 25 mg QDAY DARLENE Administration Midodrine 10 mg 09/11/25 14:00 09/12/25 05:06 Midodrine 5 Mg Tablet PO 10/11/25 13:59 Not Given TID DARLENE Ondansetron HCl 4 mg 09/11/25 21:25 09/11/25 23:17 Ondansetron Inj 2 Mg/Ml Inj 2 Ml IVP 10/11/25 21:24 4 mg Q8HR PRN Administration NAUSEA OR VOMITING Protocol Sodium Chloride 3 ml 09/08/25 17:51 09/08/25 23:07 Sodium Chloride Rt Dominique 0.9% [facility] 10/08/25 17:50 3 ml PRN PRN Administration SOLN Sodium Chloride 3 ml 09/12/25 11:43 Sodium Chloride Rt Dominique 0.9% 3 Ml [facility] INH 10/12/25 11:42 PRN PRN SOLN Plan Patient is 65-year-old male with past medical history of A-fib, status post pacemaker placement (2006, with [address] 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 Admitted for acute hypoxic respiratory failure secondary to pleural effusion. Upgraded to ICU progressive hypotension. Patient stabilized now downgraded to telemetry for further evaluation and management. # AHRF (improving) #Bilateral pleural effusion s/p thoracentesis (resolve) #Bibasilar pneumonia (improving) #Castleman syndrome Ddx chylothorax, bacterial infection, compression atelectasis 2/2 bilateral pleural effusions, or empyema formation On admission: patient presented initially to with worsening shortness of breath associated with increase sputum and cough. Denies fever, chills, recent sick contact. Patient worsening dypnea likely due to bilateral pleural effusion. Patient work of breathing will likely improve after getting therapeutic thoracentesis. Dyspea and increae work on breathing improve significantly status postthoracentesis. -Influenza A and B negative. UCDavis Coccidioides IgG Antibody is negative, hence IgG was false positive. Hence fluconazole discontinued. -PSI/PORT score 137 points- Risk Class V (high risk) , 27.0-29.2% mortality.? 09/[address]; Moderate to large bilateral pleural effusions, mild heart failure, extensive mediastinal lymphadenopathy 09/09 CXR: No pneumothorax post thoracentesis, no pneumothorax post thoracentesis 09/09 Thoracentesis : Right post pleural space 1,500cc -pleural WBC 4710, pleural RBC 30K, pleural total protein 4.2, LDH 303, glucose 125, amylase 29 09/10 Thoracentesis: Left post pleural space 1,300-pleural WBC 4770, RBC 40K, total protein 4.5, LDH 213, glucose 107. US guided thora (chylous) pleural fluid analysis- culture no growth Plan - Ceftriaxone 3g IV (09/09- - Guaifenesin p.o. twice daily as needed, - Ipratropium 0.5 mg inhaled every 8 hours and levalbuterol 1.25mg INH Q8HRRT - O2 support PRN and BiPap/CPAP prn #Extensive Mediastinal Lymphadenopathy #Castleman syndrome #Coagulopathy #CT finding bilateral metastatic pulmonary nodules lymphoproliferative disorder undergoing extensive treatment at [facility] including immunosuppressive drugs therapy.Oncology team aware the patient?s valley fever titer results. As the patient is unable to resume the IL-6 inhibitor infusion due to the positive valley fever/coccidioidomycosis result. - 03/15/25 Chest CTA - extensive mediastinal lymphadenopathy, including anterior mediastinum, aortopulmonary window, high left periaortic, tracheobronchial and subcarinal as well as adjacent to the descending thoracic aorta, bilateral subcentimeter pulmonary nodules - 05/25/25 Chest CTA - Extensive tumor mediastinal lymphadenopathy and biilateral metastatic pulmonary nodules. At least 10 subcentimeter metastatic pulmonary nodules - Chest CT 09/08/2025 again noted extensive mediastinal lymphadenopathy - AST 54, alkaline phosphatase 211, lactate dehydrogenase 342. Elevated inflammatory markers due to systemic inflammation related to immune evaluation from not receiving IV transfusion for Castleman syndrome. -On adm: PT 12.4,plt 489, Absolute neutrophil 83, Harmon 1, immature granulocyte 2% Plan - Follow-up oncologist outpatient #Atrial fibrillation, NOT rate controlled, chronic #Sick sinus syndrome s/p pacemaker placement EKG showed atrial fibrillation with a rate of 87 and a QTc of 403, no acute ST segment changes Pt has pacemaker placed in 2006 which has been replaced [address] Marquez CHADsVAS score 4 -?6.7% risk of stroke/TIA/systemic embolism HAS BLED score 2 Plan - Eliquis 5 mg p.o. twice daily - Diltiazem 240--> 120 mg p.o. daily - Metoprolol tartrate 100 mg every 12 hours (HELD) - Digoxin 0.125 mg po daily - Hold medications due to soft BP plan to resume when patient hypotension resolved - Cardiology consulted - Keep K > 4 and Mg > 2 #HFpEF EF 55-60% (02/2023) - stable Dx Echo on 03/17/2025 showed EF 55-60%. Diastolic function difficult to evaluate due to A-fib. Severe biatrial dilation. Repeat ECHO showed similar function PLAN - Strict ins and outs #VIOLETA (resolving) #Hyperkalemia Ddx volume depletion/dehydration, worsening Castleman's Cr 3>1.9>1.5 BUN 68>43>41 k5.9 - Renal US (bilateral renal cortical thickening, mild bilateral renal scar formation, small right kidney, no hydronephrosis) Plan - F/u repeat BMP - Holding diuresis - Avoid nephrotoxic agents - renally dose medications #Normocytic anemia, chronic On admission Hgb10 and HCT 31.2 with MCV 93 - Daily CBC -Type and screen, and transfuse hemoglobin less than 7 #Shock - resolve #Hypotension Ddx distributive iso of sepsis source is most likely bacterial pneumonia, may be secondary to, or contributed by, decreased fluid intake reflected by creatinine of 3.2, less likely hypovolemic shock, hemoglobin 10.0 and stable, no suspicion for active bleeding, less likely obstructive (would require massive pleural effusions increasing intrathoracic pressure decreasing preload). Dx 3/4 SIRS with lactic acidosis and suspected HR >90, RR >20, WBC 17.6, LA 2.4. blood cx x2, urine cx, -CXR. Stopped levophed Plan - Ceftriaxone 2g IV QD (09/09-), - midodrine 10 mg p.o. 3 times daily #Pre-diabetes A1c 06/30/2025 6.2; blood glucose 120-140. Not on insulin at home Plan - No intervention at this time Hospital management: Lines: peripheral IV Diet: Diet low fat Bowel: Senna GI prophylaxis: pantoprazole DVT prophylaxis: Eliquis 5mg Disposition: downgrade from surg to tele s/p thoracentesis CODE STATUS: Full code Patient assessed under supervision of attending physician and senior resident Dr. Benitez PGY-3 Elaine Gomez MD PGY-1, Internal Medicine Please note: this document was transcribed using voice recognition technology; minor inaccuracies may be present. Attending Provider Attestation/Addendum I have examined the patient, reviewed labs and imaging findings, discussed the case with the resident(s), and reviewed entered orders. I agree with the plan of care as outlined in this note. Dr. Kendra MD
[2025-09-12] MEDS: ALBUTEROL RT 2.5 MG/0.5 ML NEBU 10 MG INH (13:45)
[2025-09-12] MEDS: SODIUM CHLORIDE RT SOL 0.9% 3 ML NEBU INH (13:46)
--- NOTE | 2025-09-12 15:13 | PC.SS ---
rounding note: Patient is on 02 and has 02 at home. ICU downgrade. Patient remains on i.v. antibiotics. D/c home once stable. F/u with Oncology.
[2025-09-12 17:14] LABS: Potassium 5.2 mMol/L (3.4-5.1)
--- NOTE | 2025-09-12 17:26 | ESPR_ITS ---
<Statement entered by Kervin Marquez MD - 09/13/25 18:45> I personally examined evaluate the patient and telemetry floor with resident physician Dr. Cline patient's still having a lot of anxiety shortness of breath thoracentesis successful receiving combination of diltiazem digoxin and metoprolol for reasonable rate control still on the slightly faster side not having chest pain or mostly shortness of breath and not eating well with some nausea evaluate patient resident physician agree with the treatment plan recommendation as documented. Documentation for date of: 09/12/25 Subjective Subjective Interval history: Patient is a 65-year-old male past medical historyA-fib, status post pacemaker placement (2006, with [address] 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 Patient was recently discharged from hospital on 09/04 after being treated for volume overload and A- fib. He is returning now with worsening symptoms. He noted that at home, his oxygen saturation was in the 80s while on 3 L of nasal cannula, and he was unaware that he could increase the flow rate. Complains of feeling dehydrated there is concern for overdiuresis from his last admission as creatinine is elevated at 3.2. Repeat chest imaging shows worsening bilateral pleural effusions. Patient was desaturating on 72% on room air. Placed on 6 L face mask ultimately improved to 93%. At bedside he was on room air saturations 86%. EKG showed controlled rate 87 irregular rhythm atrial fibrillation. Sodium 136, potassium 5.1, BUN 65, creatinine 3.2 (baseline appears to be around 1.2). Troponins were negative BNP normal limits. On physical exam he does not appear to be fluid overloaded. Recommend that patient be allowed to have some fluid intake due to VIOLETA in setting of possible overdiuresis. Due to soft blood pressure recommend holding digoxin and lisinopril. Okay to continue diltiazem, metoprolol tartrate, spironolactone for proper rate control. 09/09: Patient examined at bedside. He underwent right-sided thoracentesis today. Approximately 1500 cc removed. Pleural fluid studies were consistent with an exudative effusion per lights criteria. Possibly due to his underlying Castleman syndrome. Symptoms have significantly improved with less shortness of breath. Telemetry was reviewed he remains in atrial fibrillation rate controlled around 90s. Patient remains on Levophed however has been titrated down slightly since yesterday. Creatinine down trended 3.0. Primary care team will most likely repeat thoracentesis on left. Continue to hold Bumex, metoprolol, digoxin, lisinopril, and dilt due to hypotension. Resume slowly as BP improves. 09/10: Patient examined at bedside. Respiratory distress significantly improved. Underwent left thoracentesis today with output of 1.3 L of fluid. Oxygen weaned from 6 L to 3 L nasal cannula saturating adequately 94%. Telemetry reviewed, patient remains in atrial fibrillation, heart rate well- controlled 105?110. Denies any chest pain or palpitations. Sodium 140, potassium 5.0, creatinine downtrended to 1.9. Repeat chest x-ray shows major improvement in congestion and pleural effusions. Lungs clear to auscultation on physical exam. He has been titrated off Levophed blood pressure 90/49 at bedside. Morning blood pressure with midodrine 5mg TID PRN. Plan to resume rate control agents as blood pressure improves. Starting with diltiazem. 09/11: Patient continues to improve slowly. Oxygen requirements are improving at bedside however he is on 4 L oxy mask saturating 94%. Blood pressure improved since yesterday 104/67. Telemetry reviewed he remains in A-fib rate around 110. Primary care team may resume home digoxin dose in addition to diltiazem 120mg, metoprolol 25 mg. Can increase diltiazem dose as blood pressure continues to improve. He was started on midodrine 5 mg 3 times daily while in ICU. The patient denies any chest discomfort, no palpitations, no shortness of breath. Creatinine downtrended 1.5, potassium 5.0. No Bumex at this time. 09/12: He is laying comfortably in bed, sleepy. Most recent blood pressure 124/80 with continuation of midodrine. Laboratory was reviewed he remains in A- fib with a rate around 115?120. Plan to resume home metoprolol dose. Increase his diltiazem dose to 240 mg. At bedside patient was saturating 97% on 3 L oxy mask. Leukocytosis up trended to 20, noted to have hyperkalemia 5.9 on labs this morning. Received 5 units IV regular insulin, albuterol, and patiromer 8.5 mg for hyperkalemia. Creatinine 1.6. Patient has an upcoming appointment with his oncologist on September 15 for his IV infusion for Castleman syndrome. Okay to discharge once after tachycardia improves. Exam Vital Signs Temp Pulse Resp BP Pulse Ox O2 Del Method O2 Flow Rate 98.0 F 130 H 22 H 124/80 96 Oxy Mask 5 09/12/25 12:00 09/12/25 16:00 09/12/25 13:46 09/12/25 13:56 09/12/25 13:46 09/12/25 12:00 09/12/25 13:46 FiO2 80 09/09/25 18:57 Narrative Exam General: Alert and oriented x3. No acute distress, cooperative HEENT: NCAT, No JVD noted. Mucosa moist. Pupils are equal and reactive to light bilaterally Cardiovascular: Normal S1 and S2. Regular rate and rhythm. Respiratory: Lungs are clear to auscultation bilaterally. No wheezing or crackles heard. On oxymask 3L Abdomen: Soft, nontender, not distended, normal bowel sounds. Skin: Warm to touch, dry, no rashes noted Musculoskeletal: No gross injuries. Able to move all 4 extremities. No pitting edema Neuro: Alert and oriented x3. No focal neuro deficits. Psych: Normal affect and mood Objective Labs 09/12/25 08:50 09/12/25 16:12 Labs: Laboratory Results - last 24 hr 09/09/25 09/12/25 09/12/25 11:15 08:50 16:12 WBC 19.7 H D RBC 3.73 L Hgb 11.1 L Hct 34.2 L MCV 92 MCH 29.8 MCHC 32.5 RDW Std Deviation 51.8 H Plt Count 496 H D Neut % (Auto) 85 H Lymph % (Auto) 8 L [place] % (Auto) 5 Eos % (Auto) 1 Baso % (Auto) 0 Neut # (Auto) 16.7 H Lymph # (Auto) 1.6 [place] # (Auto) 0.9 H Eos # (Auto) 0.2 Baso # (Auto) 0.1 Immature Gran # (Auto) 0.21 H Absolute Nucleated RBC 0.00 Immature Gran % 1 H Nucleated RBC % 0 Sodium 135 L Potassium 5.9 H D 5.2 H D Chloride 100 Carbon Dioxide 21.0 Anion Gap 14 BUN 42 H Creatinine 1.6 H Estim Creat Clear Calc 55.4 L eGFR 47 L BUN/Creatinine Ratio 26 H Glucose 132 H Calculated Osmolality 282 Calcium 8.9 Corrected Calcium 9.7 Total Bilirubin 0.4 AST 23 ALT 16 Alkaline Phosphatase 168 H Total Protein 8.3 H Albumin 3.0 L Globulin 5.3 H Albumin/Globulin Ratio 0.6 L Misc Test Result See Sep Rpt ABG Interpretation ABG results: 09/08/25 21:11 VBG pH 7.52 VBG pCO2 38 VBG pO2 36 VBG Base Excess 31 H Quality Measures Quality Measures none Advance care planning discussed with:: patient Assessment & Plan Assessment Current Active Medications: Generic Name Dose Route Start Last Admin Trade Name Freq PRN Reason Stop Dose Admin Acetaminophen 650 mg 09/08/25 17:08 Acetaminophen 325 Mg Tablet PO 10/08/25 17:07 Q6H PRN Fever >101.5 Apixaban 5 mg 09/08/25 21:00 09/12/25 08:27 Apixaban 2.5 Mg Tablet PO 10/08/25 20:59 5 mg BID DARLENE Administration Bumetanide 1 mg 09/09/25 09:00 Bumetanide Inj 0.25 Mg/Ml Vial 4 Ml IVP 10/09/25 08:59 On Hold: 09/09/25 09:00 QDAY DARLENE Digoxin 0.125 mg 09/11/25 19:30 09/12/25 08:27 Digoxin 0.125 Mg Tablet PO 10/11/25 19:29 0.125 mg QDAY DARLENE Administration Diltiazem HCl 120 mg 09/13/25 09:00 Diltiazem Cd 120 Mg Capcr PO 10/13/25 08:59 QDAY DARLENE Guaifenesin/Dextromethorphan 1 each 09/08/25 17:59 Guaifenesin/Dm Tablet PO 10/08/25 17:58 BID PRN COUGH Ceftriaxone Sodium/Dextrose 2 gm in 50 mls @ 100 mls/hr 09/09/25 09:29 09/12/25 10:42 Rocephin/D5w 2gm IV 09/16/25 09:28 100 mls/hr QDAY DARLENE Administration Ipratropium [place] 0.5 mg 09/08/25 23:00 09/12/25 06:56 Ipratropium Rt 0.5 Mg/ 2.5 Ml Nebu INH 10/08/25 22:59 0.5 mg Q8HRRT DARLENE Administration Levalbuterol HCl 1.25 mg 09/08/25 23:00 09/12/25 06:56 Levalbuterol Rt 1.25 Mg/0.5 Ml Nebu INH 10/08/25 22:59 1.25 mg Q8HRRT DARLENE Administration Metoprolol Succinate 25 mg 09/11/25 19:30 09/12/25 08:27 Metoprolol Succinate Xl 25 Mg Tabcr PO 10/11/25 19:29 25 mg QDAY DARLENE Administration Midodrine 10 mg 09/11/25 14:00 09/12/25 13:56 Midodrine 5 Mg Tablet PO 10/11/25 13:59 Not Given TID DARLENE Ondansetron HCl 4 mg 09/11/25 21:25 09/11/25 23:17 Ondansetron Inj 2 Mg/Ml Inj 2 Ml IVP 10/11/25 21:24 4 mg Q8HR PRN Administration NAUSEA OR VOMITING Protocol Sodium Chloride 3 ml 09/08/25 17:51 09/12/25 13:46 Sodium Chloride Rt Dominique 0.9% 3 Ml [facility] 10/08/25 17:50 3 ml PRN PRN Administration SOLN Sodium Chloride 3 ml 09/12/25 11:43 Sodium Chloride Rt Dominique 0.9% 3 Ml [facility] INH 10/12/25 11:42 PRN PRN SOLN Plan Patient is 65-year-old male with past medical history of A-fib, status post pacemaker placement (2006, with [address] 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 Admitted for acute hypoxic respiratory failure secondary to pleural effusion. Cardiology consulted for atrial fibrillation and concern for heart failure exacerbation. 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 Denies fever, chills, recent sick contact. Patient worsening dypnea likely due to bilateral pleural effusion. Patient work of breathing will likely improve after getting therapeutic thoracentesis. Chest x-ray showed chest x-ray bibasilar pneumonia/or edema large bilateral pleural effusion. Mild enlargement cardiac contour with prominent vascular congestion. PSI/PORT score 137 points- Risk Class V (high risk) , 27.0-29.2% mortality.? 09/09--right thoracentesis removed approximately 1500 cc fluid. Consistent with exudative effusion. 09/10--underwent left thoracentesis removal of 1300 cc fluid. -resume home metoprolol tartrate 100mg BID -may resume home digoxin dose - diltiazem 240mg -continue antibiotics - Hold patient's Bumex in setting of VIOLETA and concern for overdiuresis #Hypertension Patient has a history of hypertension which he takes lisinopril at home. BP on admission is 90/63 downtrending to 85/61 Plan - metoprolol tartrate 100mg BID - Midodrine 2.5 mg p.o. 3 times daily as needed for SBP less than 90 and MAP present 65 #Atrial fibrillation, rate controlled, chronic #Sick sinus syndrome s/p pacemaker placement EKG is paced sinus rhythm Pt has pacemaker placed in 2006 which has been replaced [address] Marquez CHADsVAS score 4 -?6.7% risk of stroke/TIA/systemic embolism HAS BLED score 2 - Metoprolol tartrate 100mg BID - Eliquis 5 mg p.o. twice daily - Diltiazem 120mg daily - resume Digoxin 0.125 mg po daily -hold lisinopril - Keep K > 4 and Mg > 2 #HFpEF EF 55-60% Echo on 03/17/2025 showed EF 55-60%. Diastolic function difficult to evaluate due to A-fib. Severe biatrial dilation. -CTM -does not appear to be volume overloaded on exam -hold BUMEX -repeat echo pending #Normocytic anemia, chronic #Castleman syndrome #Coagulopathy #CT finding bilateral metastatic pulmonary nodules #VIOLETA Primary care team to manage above conditions and ongoing care needs. The patient's management plan was discussed with my attending physician Dr. Marquez. Naina Sher, PGY-2
[2025-09-12] MEDS: DILTIAZEM CD 120 MG CAPCR PO ×2 (17:47→18:05)
[2025-09-12] MEDS: ONDANSETRON INJ 2 MG/ML INJ 2 ML 4 MG IVP (17:47)
[2025-09-12] MEDS: METOPROLOL TARTRATE 25 MG TABLET 100 MG PO (19:19)
[2025-09-12] MEDS: MIDODRINE 5 MG TABLET 10 MG PO (21:16)
[2025-09-13] VITALS (17 sets, daily range): BP systolic 92–118; BP diastolic 62–84; PULSE 84–121; RESP 22–29; TEMP 36.1–36.8; O2SAT 93–100
[2025-09-13] MEDS: MIDODRINE 5 MG TABLET 10 MG PO ×3 (05:12→21:00)
[2025-09-13 06:13] LABS: Basophils # (Auto) 0.1 Thou/mm3 (0.0-0.2); Basophils % (Auto) 0 % (0-2.5); Eosinophils # (Auto) 0.1 Thou/mm3 (0.0-0.5); Eosinophils % (Auto) 1 % (0-10); Hematocrit 31.9 % (41.0-53.0); Hemoglobin 10.1 g/dL (13.5-16.0); Immature Granulocytes Auto 0.21 Thou/mm3 (0.00-0.00); Lymphocytes # (Auto) 1.5 Thou/mm3 (1.0-4.8); Lymphocytes % (Auto) 7 % (10-50); Mean Corpuscular HGB Conc 31.7 g/dl (31.0-37.0); Mean Corpuscular Hemoglobin 29.8 pg (25.0-35.0); Mean Corpuscular Volume 94 fL (80-100); Monocytes # (Auto) 0.9 Thou/mm3 (0.0-0.8); Monocytes % (Auto) 5 % (0-12); Neutrophils # (Auto) 17.4 Thou/mm3 (1.8-7.7); Neutrophils % (Auto) 86 % (37-80); Nucleated Red Blood Cell # 0.00 Thou/mm3 (0.00-0.00); Nucleated Red Blood Cell % 0 /100 WBC (0); Platelet Count 482 Thou/mm3 (140-440); RDW Standard Deviation 53.7 fL (35.1-43.9); Red Blood Count 3.39 Miln/mm3 (4.50-5.90); White Blood Count 20.2 Thou/mm3 (3.8-10.6)
[2025-09-13 06:53] LABS: Alanine Aminotransferase 10 U/L (10-49); Albumin, Serum 3.1 gm/dL (3.4-4.8); Albumin/Globulin Ratio 0.6 (1.2-2.2); Alkaline Phosphatase 143 U/L (46-116); Anion Gap 11 (7-16); Aspartate Amino Transferase 15 U/L (0-34); BUN/Creatinine Ratio 22 Ratio (12-20); Bilirubin,Total 0.3 mg/dL (0.3-1.2); Blood Urea Nitrogen 39 mg/dL (9-23); Calcium 9.3 mg/dL (8.3-10.6); Calcium (Corrected) 10.0 mg/dL (8.5-10.1); Carbon Dioxide 21.9 mMol/L (20.0-31.0); Chloride 101 mMol/L (98-107); Creatinine (Component) 1.8 mg/dL (0.6-1.3); Estimated Creatinine Clearance 49.4 mL/min (>60); Globulin 5.1 gm/dL (2.3-3.5); Glucose 108 mg/dL (74-106); Magnesium 2.4 mg/dL (1.6-2.6); Osmolality,Calculated 278 (275-295); Phosphorous 6.0 mg/dL (2.4-5.1); Potassium 5.3 mMol/L (3.4-5.1); Sodium 134 mMol/L (136-145); Total Protein 8.2 gm/dL (5.7-8.2); eGFR 41 See Note
[2025-09-13] MEDS: IPRATROPIUM RT 0.5 MG/ 2.5 ML NEBU INH ×2 (06:56→15:23)
[2025-09-13] MEDS: LEVALBUTEROL RT 1.25 MG/0.5 ML NEBU INH ×2 (06:56→15:23)
[2025-09-13] MEDS: METOPROLOL TARTRATE 25 MG TABLET 100 MG PO ×2 (08:20→20:28)
[2025-09-13] MEDS: DIGOXIN 0.125 MG TABLET PO (08:20)
[2025-09-13] MEDS: DILTIAZEM CD 120 MG CAPCR 240 MG PO (08:21)
[2025-09-13] MEDS: cefTRIAXone/D5w 2gm 2 GM/50 ML BAG IV (08:21)
[2025-09-13] MEDS: APIXABAN 2.5 MG TABLET 5 MG PO ×2 (08:43→20:29)
--- NOTE | 2025-09-13 08:43 | PD.RESPRO ---
Documentation for date of: 09/13/25 Exam Vital Signs Temp Pulse Resp BP Pulse Ox O2 Del Method O2 Flow Rate 97.0 F 104 H 24 H 118/82 100 Oxy Mask 4 09/13/25 04:00 09/13/25 08:21 09/13/25 06:57 09/13/25 08:21 09/13/25 06:57 09/13/25 04:00 09/13/25 06:57 FiO2 80 09/09/25 18:57 Objective Labs 09/13/25 04:05 09/13/25 04:05 Labs: Laboratory Results - last 24 hr 09/12/25 09/12/25 09/13/25 08:50 16:12 04:05 WBC 19.7 H D 20.2 H RBC 3.73 L 3.39 L Hgb 11.1 L 10.1 L Hct 34.2 L 31.9 L MCV 92 94 MCH 29.8 29.8 MCHC 32.5 31.7 RDW Std Deviation 51.8 H 53.7 H Plt Count 496 H D 482 H Neut % (Auto) 85 H 86 H Lymph % (Auto) 8 L 7 L [place] % (Auto) 5 5 Eos % (Auto) 1 1 Baso % (Auto) 0 0 Neut # (Auto) 16.7 H 17.4 H Lymph # (Auto) 1.6 1.5 [place] # (Auto) 0.9 H 0.9 H Eos # (Auto) 0.2 0.1 Baso # (Auto) 0.1 0.1 Immature Gran # (Auto) 0.21 H 0.21 H Absolute Nucleated RBC 0.00 0.00 Immature Gran % 1 H 1 H Nucleated RBC % 0 0 Sodium 135 L 134 L Potassium 5.9 H D 5.2 H D 5.3 H Chloride 100 101 Carbon Dioxide 21.0 21.9 Anion Gap 14 11 BUN 42 H 39 H Creatinine 1.6 H 1.8 H Estim Creat Clear Calc 55.4 L 49.4 L eGFR 47 L 41 L BUN/Creatinine Ratio 26 H 22 H Glucose 132 H 108 H Calculated Osmolality 282 278 Calcium 8.9 9.3 Corrected Calcium 9.7 10.0 Phosphorus 6.0 H Magnesium 2.4 Total Bilirubin 0.4 0.3 AST 23 15 ALT 16 10 Alkaline Phosphatase 168 H 143 H D Total Protein 8.3 H 8.2 Albumin 3.0 L 3.1 L Globulin 5.3 H 5.1 H Albumin/Globulin Ratio 0.6 L 0.6 L ABG Interpretation ABG results: 09/08/25 21:11 VBG pH 7.52 VBG pCO2 38 VBG pO2 36 VBG Base Excess 31 H Quality Measures Quality Measures none Assessment & Plan Assessment Current Active Medications: Generic Name Dose Route Start Last Admin Trade Name Freq PRN Reason Stop Dose Admin Acetaminophen 650 mg 09/08/25 17:08 Acetaminophen 325 Mg Tablet PO 10/08/25 17:07 Q6H PRN Fever >101.5 Apixaban 5 mg 09/08/25 21:00 09/13/25 08:43 Apixaban 2.5 Mg Tablet PO 10/08/25 20:59 5 mg BID DARLENE Administration Bumetanide 1 mg 09/09/25 09:00 Bumetanide Inj 0.25 Mg/Ml Vial 4 Ml IVP 10/09/25 08:59 On Hold: 09/09/25 09:00 QDAY DARLENE Digoxin 0.125 mg 09/11/25 19:30 09/13/25 08:20 Digoxin 0.125 Mg Tablet PO 10/11/25 19:29 0.125 mg QDAY DARLENE Administration Diltiazem HCl 240 mg 09/13/25 09:00 09/13/25 08:21 Diltiazem Cd 120 Mg Capcr PO 10/13/25 08:59 240 mg QDAY DARLENE Administration Guaifenesin/Dextromethorphan 1 each 09/08/25 17:59 Guaifenesin/Dm Tablet PO 10/08/25 17:58 BID PRN COUGH Ceftriaxone Sodium/Dextrose 2 gm in 50 mls @ 100 mls/hr 09/09/25 09:29 09/13/25 08:21 Rocephin/D5w 2gm IV 09/16/25 09:28 100 mls/hr QDAY DARLENE Administration Ipratropium [place] 0.5 mg 09/08/25 23:00 09/13/25 06:56 Ipratropium Rt 0.5 Mg/ 2.5 Ml Nebu INH 10/08/25 22:59 0.5 mg Q8HRRT DARLENE Administration Levalbuterol HCl 1.25 mg 09/08/25 23:00 09/13/25 06:56 Levalbuterol Rt 1.25 Mg/0.5 Ml Nebu INH 10/08/25 22:59 1.25 mg Q8HRRT DARLENE Administration Metoprolol Tartrate 100 mg 09/12/25 18:45 09/13/25 08:20 Metoprolol Tartrate 25 Mg Tablet PO 10/12/25 18:44 100 mg BID DARLENE Administration Midodrine 10 mg 09/11/25 14:00 09/13/25 05:12 Midodrine 5 Mg Tablet PO 10/11/25 13:59 10 mg TID DARLENE Administration Ondansetron HCl 4 mg 09/11/25 21:25 09/12/25 17:47 Ondansetron Inj 2 Mg/Ml Inj 2 Ml IVP 10/11/25 21:24 4 mg Q8HR PRN Administration NAUSEA OR VOMITING Protocol Sodium Chloride 3 ml 09/12/25 11:43 Sodium Chloride Rt Dominique 0.9% 3 Ml Nebu INH 10/12/25 11:42 PRN PRN SOLN
--- NOTE | 2025-09-13 09:35 | XR_ITS ---
EXAMINATION: AP chest single view TECHNIQUE: AP portable upright chest single view Date and time: September 13, 2025, 0954 hours, comparison September 10, 2025 INDICATIONS: Shortness of breath today. FINDINGS: Mild to moderate chronic heart failure pattern Moderate enlargement cardiac contour Ectatic enlarged thoracic aorta Prominent central vascular congestion perihilar basilar edema Unipolar ventricular lead satisfactory position IMPRESSION: Mild to moderate heart failure
[2025-09-13] MEDS: PATIROMER CALCIUM 8.4 GM PACKET PO (09:50)
--- NOTE | 2025-09-13 10:34 | ESPR_ITS ---
Documentation for date of: 09/13/25 Subjective Subjective Interval history: History of present illness: 65-year-old male past medical history A-fib status [place] pacemaker [place] [address] 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 The patient was discharged on 09/04/2025 following treatment of superimposed pneumonia on a right sided pleural effusion. It was reported that at that time the thoracentesis was unable to be performed due to anatomic reasons. He was discharged on home oxygen and continued on fluconazole with a positive Coccidioides IgM antibody. The patient was advised to follow up with his PCP for further evaluation of Coccidioides IgG and to resume treatment for management once the results were available. However, the patient reported that the PCP was unable to obtain IgG levels. Of note, the patient has a history of Castleman syndrome and was receiving infusions of infliximab which have been paused for the past 3 months due to an abscess on his buttock that has been followed with wound care. Wound care recently cleared the patient to resume his infusions. Today he presented after progressively worsening shortness of breath. It was reported the patient was using 3 L at home and required 6 L upon arrival to the ED followed by 13 L oxime mask in order to maintain his saturations around 90. He was also found to have a creatinine of 3.2 (baseline 1.0-1.2). The patient's MAP was not maintaining above 65. He was maintaining a MAP less than 60 after receiving 12.5 mg of midodrine and gentle fluid resuscitation of 250 mL. Lactate level had started going up, 2.4. Unable to administer further IV fluid as patient has bilateral crackles and is on high flow nasal cannula. The patient was transferred to ICU for pressor support. Nephrology consulted by hospitalist team for VIOLETA. 09/09/25: Patient seen and assessed in ICU. On BiPAP. Denies recent diarrhea or vomiting. BUN 68, creatinine improved to 3.0 from 3.2 (baseline 1.0-1.3 per previous admission). Home medications include Bumex 1 mg daily, spiranolactone 25 mg daily, lisinopril 20 mg daily, and digoxin 125 mcg daily. Does not see a corporate receptionist, no history of renal conditions. UA showed trace urine protein and hyaline casts. FeNa and FeUrea indicative of pre-renal azotemia, likely ATN. 09/10/25: Patient seen and assessed in ICU. Off pressors. On 6L NC s/p right thoracentesis yesterday. UOP 2.2L. BUN 43, creatinine 1.9 (from 3.0) s/p IVF maintenance. No need to continue IVF, encourage oral rehydration. 09/11/25: Patient seen and assessed in ICU, on telemetry. BP 93/60s at bedside, on midodrine 5 mg TID. UOP 1.8L. BUN 41, creatinine 1.5, improving. Patient is medically stable for discharge from nephrology standpoint. Explained to patient that he may have underlying nephropathy, is welcomed to follow up outpatient at clinic 1-2 weeks after discharge. 09/12/25: Patient seen and assessed on telemetry. BP stable off midodrine this morning. Maintaining good UOP. Potassium 5.9, given hyperkalemia cocktail. Creatinine 1.6, stable. Encouraged oral hydration (oral intake 480 cc). 09/13/25: Patient seen and assessed on telemetry. Potassium 5.3 (from 5.2 s/p hyperkalemia cocktail), s/p Veltassa per primary team. Creatinine 1.8 (from 1.6), recommend to continue oral hydration (oral intake 640 cc + 330 cc supplement). Otherwise maintaining good UOP. Phosphorus 6.0. Exam Vital Signs Temp Pulse Resp BP Pulse Ox O2 Del Method O2 Flow Rate 98.1 F 104 H 24 H 118/82 94 L Oxy Mask 4 09/13/25 08:00 09/13/25 08:21 09/13/25 08:00 09/13/25 08:21 09/13/25 08:00 09/13/25 08:00 09/13/25 08:00 FiO2 80 09/13/25 08:00 Narrative Exam Physical Exam General: Awake and in no acute distress. On 3L O2. HEENT: Normocephalic, atraumatic, mucous membranes dry. Heart: Irregular rate and rhythm, normal S1 and S2, no murmurs appreciated. Lungs: CTAB. Abdomen: Soft, nondistended, nontender, positive bowel sounds. No guarding or rebound tenderness. Neurologic: No gross neurological deficit, and patient able to move all 4 extremities. Extremities: No edema. Skin: No rash or ecchymoses. Objective Labs 09/13/25 04:05 09/13/25 04:05 Labs: Laboratory Results - last 24 hr 09/12/25 09/13/25 16:12 04:05 WBC 20.2 H RBC 3.39 L Hgb 10.1 L Hct 31.9 L MCV 94 MCH 29.8 MCHC 31.7 RDW Std Deviation 53.7 H Plt Count 482 H Neut % (Auto) 86 H Lymph % (Auto) 7 L [place] % (Auto) 5 Eos % (Auto) 1 Baso % (Auto) 0 Neut # (Auto) 17.4 H Lymph # (Auto) 1.5 [place] # (Auto) 0.9 H Eos # (Auto) 0.1 Baso # (Auto) 0.1 Immature Gran # (Auto) 0.21 H Absolute Nucleated RBC 0.00 Immature Gran % 1 H Nucleated RBC % 0 Sodium 134 L Potassium 5.2 H D 5.3 H Chloride 101 Carbon Dioxide 21.9 Anion Gap 11 BUN 39 H Creatinine 1.8 H Estim Creat Clear Calc 49.4 L eGFR 41 L BUN/Creatinine Ratio 22 H Glucose 108 H Calculated Osmolality 278 Calcium 9.3 Corrected Calcium 10.0 Phosphorus 6.0 H Magnesium 2.4 Total Bilirubin 0.3 AST 15 ALT 10 Alkaline Phosphatase 143 H D Total Protein 8.2 Albumin 3.1 L Globulin 5.1 H Albumin/Globulin Ratio 0.6 L ABG Interpretation ABG results: 09/08/25 21:11 VBG pH 7.52 VBG pCO2 38 VBG pO2 36 VBG Base Excess 31 H Quality Measures Quality Measures none Advance care planning discussed with:: patient Assessment & Plan Assessment Current Active Medications: Generic Name Dose Route Start Last Admin Trade Name Freq PRN Reason Stop Dose Admin Acetaminophen 650 mg 09/08/25 17:08 Acetaminophen 325 Mg Tablet PO 10/08/25 17:07 Q6H PRN Fever >101.5 Apixaban 5 mg 09/08/25 21:00 09/13/25 08:43 Apixaban 2.5 Mg Tablet PO 10/08/25 20:59 5 mg BID DARLENE Administration Bumetanide 1 mg 09/09/25 09:00 Bumetanide Inj 0.25 Mg/Ml Vial 4 Ml IVP 10/09/25 08:59 On Hold: 09/09/25 09:00 QDAY DARLENE Digoxin 0.125 mg 09/11/25 19:30 09/13/25 08:20 Digoxin 0.125 Mg Tablet PO 10/11/25 19:29 0.125 mg QDAY DARLENE Administration Diltiazem HCl 240 mg 09/13/25 09:00 09/13/25 08:21 Diltiazem Cd 120 Mg Capcr PO 10/13/25 08:59 240 mg QDAY DARLENE Administration Guaifenesin/Dextromethorphan 1 each 09/08/25 17:59 Guaifenesin/Dm Tablet PO 10/08/25 17:58 BID PRN COUGH Ceftriaxone Sodium/Dextrose 2 gm in 50 mls @ 100 mls/hr 09/09/25 09:29 09/13/25 08:21 Rocephin/D5w 2gm IV 09/16/25 09:28 100 mls/hr QDAY DARLENE Administration Ipratropium [employer] 0.5 mg 09/08/25 23:00 09/13/25 06:56 Ipratropium Rt 0.5 Mg/ 2.5 Ml Nebu INH 10/08/25 22:59 0.5 mg Q8HRRT DARLENE Administration Levalbuterol HCl 1.25 mg 09/08/25 23:00 09/13/25 06:56 Levalbuterol Rt 1.25 Mg/0.5 Ml Nebu INH 10/08/25 22:59 1.25 mg Q8HRRT DARLENE Administration Metoprolol Tartrate 100 mg 09/12/25 18:45 09/13/25 08:20 Metoprolol Tartrate 25 Mg Tablet PO 10/12/25 18:44 100 mg BID DARLENE Administration Midodrine 10 mg 09/13/25 14:00 Midodrine 5 Mg Tablet PO 10/11/25 13:59 TID DARLENE Ondansetron HCl 4 mg 09/11/25 21:25 09/12/25 17:47 Ondansetron Inj 2 Mg/Ml Inj 2 Ml IVP 10/11/25 21:24 4 mg Q8HR PRN Administration NAUSEA OR VOMITING Protocol Sodium Chloride 3 ml 09/12/25 11:43 Sodium Chloride Rt Dominique 0.9% 3 Ml Nebu INH 10/12/25 11:42 PRN PRN SOLN Plan Patient is a 65 year old male with PMH of A-fib status [place] [address] Marquez, hypertension, HFpEF with EF 55-60%, and Castleman syndrome who presented with worsening shortness of breath, admitted for management of AHRF. Upgraded to ICU for hypotension requiring pressor support. Nephrology consulted for VIOLETA. #VIOLETA #Pre-renal azotemia likely ATN secondary to overdiuresis versus decreased oral intake #Possible underlying diabetic nephropathy #Multicentric Castleman's disease - Does not follow corporate receptionist or have history of renal problems; however patient does have multicentric Castleman's disease. Patient is HIV negative. iMCD TAFRO associated with renal dysfunction however has other sequelae including thrombocytopenia, anasarca, fever/elevated CRP, and organomegaly which patient does not exhibit at this time. Note NOS associated with thrombocytosis. Was on infliximab but has not been receiving infusions for the past 3 months due to infection, later ruled out. - BUN 65, creatinine 3.2 on admission -> 3.0 -> 1.9 (baseline 1.0-1.3) - Creatinine clearance 30.1 - UA showed hyaline casts with trace protein, possible underlying nephropathy secondary DM (A1c 6.2 in 06/2025, previously in prediabetic range) - Renal US showed small right kidney with bilateral renal cortical thinning and mild bilateral scar formation, no hydronephrosis. - FeNa inaccurate as patient has been on diuretics. FeUrea 13.6% indicating pre- renal disease. - S/p Bumex 1 mg IV x1, LR 250 bolus in ED, IV LR maintenance 09/09 - VIOLETA secondary to ATN secondary to decreased oral intake from nausea versus renal dysfunction secondary to iMCD versus fluid overload Plan: - No need for IVF - Encourage oral hydration - Avoid nephrotoxic agents - Renally dose medications - Strict INOs - Daily weights - Follow AM renal panel #Hyperphosphatemia (resolved) - Phosphorus 5.6 -> 4.0 s/p sevelamer 800 x1 -> 6.0 - In setting of VIOLETA Plan: - Sevelamer 800 x1 - Continue to monitor #Hyperkalemia - Potassium 5.9 -> 5.2 -> 5.3 - In setting of VIOLETA Plan: - Veltassa per primary team - Follow up repeat renal panel #Sepsis leading to distributive shock secondary to #Pneumonia #Leukocytosis #A-fib #Sick sinus syndrome status post pacemaker placement #HFpEF EF 50-55% #Acute hypoxic respiratory failure (resolving) #Bilateral Pleural Effusions - resolved s/p bilateral thoracentesis #Pneumonia #Extensive Mediastinal Lymphadenopathy #Pulmonary Nodules #Diabetes #Chronic normocytic anemia - Defer management to primary team Thank you for your consultation, please do not hesitate to reach out if you have any question or concern. Patient plan of care was discussed with the attending physician, Dr. Barakat. Soraya Alejandro DO, PGY-1 Attending Provider Attestation/Addendum Patient seen and examined with resident physician Dr. Alejandro. Note reviewed, agree with findings and recommendations. Patient currently seen in telemetry. at bedside on nasala canula. Clinically looks rather euvolemic. He has a history of Castleman syndrome. s/p thoracentesis. Today he seems to be more short of breath. Creatinine tad elevated. BP better. Continue to monitor urine output, creatinine closely. Breathing seems to be worse today.-Noted cardiology gave diuretics.
[2025-09-13 12:03] LABS: Digoxin 0.5 ng/mL (0.8-2.0)
--- NOTE | 2025-09-13 12:13 | ESDS_ITS ---
<Statement entered by Mark Torrez MD - 09/13/25 13:13> Note reviewed and agree with care plan as documented. Please refer to the note below for further details. Plan discussed with attending physician Dr. Kendra Torrez MD PGY-2 Internal Medicine Planned Discharge Date 09/13/25 DS: Providers Provider Date of admission: 09/08/25 16:56 Primary care physician: Physician No Primary/Family Admitting Provider: Miguel Angel Gardner MD Attending Provider on Admission: Marcy Solis DO Consults: 09/08/25 17:25 Consult to Cardiology Routine Comment: Pleural effusion Consulting Provider: Kervin Marquez 09/08/25 18:34 Consult to Nephrology Routine Comment: VIOLETA Consulting Provider: Jose Barakat 09/09/25 13:27 Referral Registered Dietitian Routine Comment: 09/13/25 12:00 Referral - [employer]amatic [employer] Historian Routine Service Needed for Transfer: Hematology & Oncology Addl Comments:: Patient with history of castleman syndrome with extensive mediastinal lymphadenopathy admitted multiple times for AHRF. Patient was being treated at [facility] earlier in the year with immunosuppressive drug therapy. Patient had to stop infusions due to positive cocci titer results. Patient needing transfer to in order to restart transfusions in the setting of the patient worsening respiratory status, patient ultimately needing higher level of care. Attending Provider on DC: Miguel Angel Gardner MD Discharging Provider: Miguel Angel Gardner MD DS: Diagnosis Problem List Completed Was Problem List Reviewed/Reconciled?: Yes Hospital Course Hospital Course Hospital course: Patient is a 65-year-old male with past medical history of A-fib on Eliquis, HFpEF (EF 55 to 60% on 02/2025), sick sinus syndrome status post pacemaker, Castleman's disease (diagnosed 1.5 years ago) previously on q3week siltuximab infusion and methotrexate with extensive mediastinal lymphadenopathy who is being admitted to [facility] for AHRF secondary to pnuemonia/pleural effusions. Recently discharged on 09/04 after being admitted for the same. During hospitalization patient was treated with aggressive diuresis and oxygen requirements improved, though patient was discharged on home oxygen. Attempted pleural drainage but there was no safe site for thoracentesis. Since being discharged, patient states that his shortness of breath had progressed and thus presented to the ED. Initial vitals showed BP 90/63 and saturating in the 70s on room air and transition to oxy mask 6 L and saturating 95%. Patient had an elevated white blood cell count and a prominent VIOLETA. CXR showing bibasilar pneumonia/edema with large bilateral pleural effusions. Patient was started on antibiotics and ultrasound-guided thoracentesis with fluid studies was done showing chylous pleural fluid after being upgraded briefly to the ICU for septic shock secondary to the pneumonia. Patient was downgraded to the floor team and started to have worsening respiratory status, unable to exert himself without becoming very short of breath while on oxy mask. The team reached out to [facility] Dr. Moctezuma's office (heme/onc), was not able to contact him but got in contact with the on-call heme-onc Dr. Jaiden Blue who, after learning about the patient over the phone call, recommended patient should be transferred to higher level of care and in the mean time be seen by local heme/onc doctor. Local oncologist Dr. Hays was consulted and contacted. Patient is currently in the process of being transferred as of this note. # AHRF #Bilateral pleural effusion s/p thoracentesis #Bibasilar pneumonia #Castleman syndrome #Extensive Mediastinal Lymphadenopathy #Castleman syndrome #Coagulopathy #CT finding bilateral metastatic pulmonary nodules #Atrial fibrillation #Sick sinus syndrome s/p pacemaker placement #HFpEF EF 55-60% (02/2023) #VIOLETA #Hyperkalemia #Normocytic anemia, chronic #Shock #Hypotension #Pre-diabetes Patient plan of care was discussed with the attending physician, Dr. Gardner & senior resident Dr. Lore Hansen MD PGY-1 Time Spent with Patient Time attestation: Total time spent providing and/or coordinating discharge services: Time spent: Greater than 30 minutes Exam Vital Signs Temp Pulse Resp BP Pulse Ox O2 Del Method O2 Flow Rate 98.1 F 104 H 24 H 118/82 94 L Oxy Mask 4 09/13/25 08:00 09/13/25 08:21 09/13/25 08:00 09/13/25 08:21 09/13/25 08:00 09/13/25 08:00 09/13/25 08:00 FiO2 80 09/13/25 08:00 Narrative Exam General: Leaning over in bed, in resp distress On 4L oxy mas 80% FIO2 HEENT: Normocephalic, atraumatic, mucous membranes dry. Heart: Tachycardic and Irregular rhythm, normal S1 and S2, no murmurs alhaji reciated. Lungs: CTAB. Increased work of breathing; tachypneic Abdomen: Soft, nondistended, nontender, positive bowel sounds. No guarding or rebound tenderness. Neurologic: No gross neurological deficit, and patient able to move all 4 extremities. Extremities: No edema. Skin: No rash or ecchymoses. Discharge Plan Plan Patient Disposition: [facility] Pt Being Transferred to: [facility] Service Needed for Transfer: Hematology & Oncology Patient condition on transfer: Stable Prescriptions/Referrals Prescriptions/Med Rec: No Action metoprolol tartrate 100 mg tablet 100 mg PO Q12H Patient Comments: TAKE 1 TABLET BY MOUTH TWICE DAILY WITH FOOD digoxin 125 mcg (0.125 mg) tablet 0.125 mg PO DAILY Patient Comments: TAKE 1 TABLET BY MOUTH ONCE DAILY FOR 90 DAYS methotrexate sodium 2.5 mg tablet 15 mg PO .Q WEEKLY Patient Comments: TAKE 6 TABLETS BY MOUTH ONCE A WEEK ALL AT ONCE bumetanide 1 mg tablet 1 mg PO QDAY 30 Days Qty: 30 1RF hydrocodone-acetaminophen 5-325 mg tablet 1 tab PO QDAY MDD 5mg hydrocodone Qty: 21 0RF Rx Instructions: We are currently holding his methotrexate and siltuximab for wound healing. Rebound pain is managed temporarily with norco. He cannot have NSAIDs d/t drug interactions. diltiazem HCl 240 mg capsule,extended release 24hr 240 mg PO QDAY Patient Comments: TAKE 1 CAPSULE BY MOUTH ONCE DAILY folic acid 1 mg tablet 1 mg PO QDAY Patient Comments: TAKE 1 TABLET BY MOUTH ONCE DAILY ondansetron 4 mg tablet,disintegrating 4 mg PO TID spironolactone 25 mg tablet 25 mg PO QDAY Patient Comments: TAKE 1 TABLET BY MOUTH ONCE DAILY fluconazole 200 mg tablet 400 mg PO QDAY 30 Days Qty: 60 0RF Eliquis 5 mg Tablet 5 mg PO BID lisinopril 20 mg tablet 20 mg PO DAILY Patient Comments: TAKE 1 TABLET BY MOUTH ONCE DAILY hydrocodone-acetaminophen 5-325 mg tablet 1 tab PO BID MDD 10mg hydrocodone PRN (Reason: pain) Qty: 14 0RF Referrals: No Primary/Family,Physician [Primary Care Provider] Patient/Caregiver Discharge Instructions Education Materials: Thoracentesis Dc Print Language: Lithuanian Stand Alone Forms: [employer] Award Info., Patient Portal Info Letter Discharge Order Discharge Orders: Discharge (Routine); Ordered 09/13/25 Ordered By: Zack Villasenor Quality Discharge Quality Measures VTE prophylaxis MD Attestestation MD Attestation I have examined the patient, reviewed labs and imaging findings, discussed the case with the resident(s), and reviewed entered orders. I agree with the plan of care as outlined in this note. Time Spent: [address] Kendra MD
[2025-09-13 12:26] LABS: Base Excess, Venous 1 (-3-3); O2 Saturation, Venous 58 % (96-97); PCO2, Venous 36 mmHg (36-56); PO2, Venous 34 mmHg (15-58); pH, Venous 7.44 (7.33-7.66)
--- NOTE | 2025-09-13 12:35 | ESPR_ITS ---
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 I discussed with Dr. ALVARES oncologist about possibly starting back on siltuximab Mab therapy as recommended by [facility] patient was going to [facility] to get this treatment but patient cannot be transferred there since he requiring oxygen. Will recommend giving Bumex 2 mg daily and possibly just 1 mg if there is no clinical response also will get oncology recommendation as to whether we can start the Mab therapy here Documentation for date of: 09/13/25 Subjective Subjective Interval history: Patient is a 65-year-old male past medical historyA-fib, status post pacemaker placement (2006, with [address] 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 Patient was recently discharged from hospital on 09/04 after being treated for volume overload and A- fib. He is returning now with worsening symptoms. He noted that at home, his oxygen saturation was in the 80s while on 3 L of nasal cannula, and he was unaware that he could increase the flow rate. Complains of feeling dehydrated there is concern for overdiuresis from his last admission as creatinine is elevated at 3.2. Repeat chest imaging shows worsening bilateral pleural effusions. Patient was desaturating on 72% on room air. Placed on 6 L face mask ultimately improved to 93%. At bedside he was on room air saturations 86%. EKG showed controlled rate 87 irregular rhythm atrial fibrillation. Sodium 136, potassium 5.1, BUN 65, creatinine 3.2 (baseline appears to be around 1.2). Troponins were negative BNP normal limits. On physical exam he does not appear to be fluid overloaded. Recommend that patient be allowed to have some fluid intake due to VIOLETA in setting of possible overdiuresis. Due to soft blood pressure recommend holding digoxin and lisinopril. Okay to continue diltiazem, metoprolol tartrate, spironolactone for proper rate control. 09/09: Patient examined at bedside. He underwent right-sided thoracentesis today. Approximately 1500 cc removed. Pleural fluid studies were consistent with an exudative effusion per lights criteria. Possibly due to his underlying Castleman syndrome. Symptoms have significantly improved with less shortness of breath. Telemetry was reviewed he remains in atrial fibrillation rate controlled around 90s. Patient remains on Levophed however has been titrated down slightly since yesterday. Creatinine down trended 3.0. Primary care team will most likely repeat thoracentesis on left. Continue to hold Bumex, metoprolol, digoxin, lisinopril, and dilt due to hypotension. Resume slowly as BP improves. 09/10: Patient examined at bedside. Respiratory distress significantly improved. Underwent left thoracentesis today with output of 1.3 L of fluid. Oxygen weaned from 6 L to 3 L nasal cannula saturating adequately 94%. Telemetry reviewed, patient remains in atrial fibrillation, heart rate well- controlled 105?110. Denies any chest pain or palpitations. Sodium 140, potassium 5.0, creatinine downtrended to 1.9. Repeat chest x-ray shows major improvement in congestion and pleural effusions. Lungs clear to auscultation on physical exam. He has been titrated off Levophed blood pressure 90/49 at bedside. Morning blood pressure with midodrine 5mg TID PRN. Plan to resume rate control agents as blood pressure improves. Starting with diltiazem. 09/11: Patient continues to improve slowly. Oxygen requirements are improving at bedside however he is on 4 L oxy mask saturating 94%. Blood pressure improved since yesterday 104/67. Telemetry reviewed he remains in A-fib rate around 110. Primary care team may resume home digoxin dose in addition to diltiazem 120mg, metoprolol 25 mg. Can increase diltiazem dose as blood pressure continues to improve. He was started on midodrine 5 mg 3 times daily while in ICU. The patient denies any chest discomfort, no palpitations, no shortness of breath. Creatinine downtrended 1.5, potassium 5.0. No Bumex at this time. 09/12: He is laying comfortably in bed, sleepy. Most recent blood pressure 124/80 with continuation of midodrine. Laboratory was reviewed he remains in A- fib with a rate around 115?120. Plan to resume home metoprolol dose. Increase his diltiazem dose to 240 mg. At bedside patient was saturating 97% on 3 L oxy mask. Leukocytosis up trended to 20, noted to have hyperkalemia 5.9 on labs this morning. Received 5 units IV regular insulin, albuterol, and patiromer 8.5 mg for hyperkalemia. Creatinine 1.6. Patient has an upcoming appointment with his oncologist on September 15 for his IV infusion for Castleman syndrome. Okay to discharge once after tachycardia improves. 09/13: Patient is sitting up in bed, saturating 100% on 10L oxymask at bedside. Even though saturations are well maintained on lower settings, patient is experiencing air hunger. He endorses decreased appetite and fatigue. Telemetry reviewed and remains in afib, rate better controlled around 90-100 with metoprololl tartrate, digoxin, and diltiazem resumed. Hyperkalemia resolving with level 5.3 today. Creatnine has uptrended to 1.8, magnesium 2.4, phosphate 6.0. Continues to get 10mg midodrine TID. BP is 118/82 today. Not stable for discharge due to oxygen requirements. Team is attempting to get patient his siltuximab infusion therapy for Castlemans. Plan to hold digoxin due to worsening kidney function and hyperkalemai. Some JVD noticed and orthopnea. Plan to restart IV Bumex 2mg daily. This may help in respiratory status. Exam Vital Signs Temp Pulse Resp BP Pulse Ox O2 Del Method O2 Flow Rate 97.5 F 106 H 24 H 118/78 100 Oxy Mask 4 09/13/25 12:00 09/13/25 12:00 09/13/25 12:09/13/25 12:09/13/25 12:09/13/25 12:09/13/25 12:00 FiO2 80 09/13/25 12:00 Narrative Exam General: Alert and oriented x3. No acute distress, cooperative HEENT: NCAT, some JVD noted. Mucosa moist. Pupils are equal and reactive to light bilaterally Cardiovascular: Normal S1 and S2. Regular rate and rhythm. Respiratory: Lungs are clear to auscultation bilaterally. No wheezing or crackles heard. On oxymask 10L Abdomen: Soft, nontender, not distended, normal bowel sounds. Skin: Warm to touch, dry, no rashes noted Musculoskeletal: No gross injuries. Able to move all 4 extremities. No pitting edema Neuro: Alert and oriented x3. No focal neuro deficits. Psych: Normal affect and mood Objective Labs 09/13/25 04:05 09/13/25 04:05 Labs: Laboratory Results - last 24 hr 09/12/25 09/13/25 09/13/25 16:12 04:05 12:18 WBC 20.2 H RBC 3.39 L Hgb 10.1 L Hct 31.9 L MCV 94 MCH 29.8 MCHC 31.7 RDW Std Deviation 53.7 H Plt Count 482 H Neut % (Auto) 86 H Lymph % (Auto) 7 L Stearns % (Auto) 5 Eos % (Auto) 1 Baso % (Auto) 0 Neut # (Auto) 17.4 H Lymph # (Auto) 1.5 Stearns # (Auto) 0.9 H Eos # (Auto) 0.1 Baso # (Auto) 0.1 Immature Gran # (Auto) 0.21 H Absolute Nucleated RBC 0.00 Immature Gran % 1 H Nucleated RBC % 0 VBG pH 7.44 VBG pCO2 36 VBG pO2 34 VBG O2 Sat (Claribel) 58 L VBG Base Excess 1 Sodium 134 L Potassium 5.2 H D 5.3 H Chloride 101 Carbon Dioxide 21.9 Anion Gap 11 BUN 39 H Creatinine 1.8 H Estim Creat Clear Calc 49.4 L eGFR 41 L BUN/Creatinine Ratio 22 H Glucose 108 H Calculated Osmolality 278 Calcium 9.3 Corrected Calcium 10.0 Phosphorus 6.0 H Magnesium 2.4 Total Bilirubin 0.3 AST 15 ALT 10 Alkaline Phosphatase 143 H D Total Protein 8.2 Albumin 3.1 L Globulin 5.1 H Albumin/Globulin Ratio 0.6 L Digoxin 0.5 L ABG Interpretation ABG results: 09/08/25 09/13/25 21:11 12:18 VBG pH 7.52 7.44 VBG pCO2 38 36 VBG pO2 36 34 VBG Base Excess 31 H 1 Quality Measures Quality Measures none Advance care planning discussed with:: patient Assessment & Plan Assessment Current Active Medications: Generic Name Dose Route Start Last Admin Trade Name Gladys PRN Reason Stop Dose Admin Acetaminophen 650 mg 09/08/25 17:08 Acetaminophen 325 Mg Tablet PO 10/08/25 17:07 Q6H PRN Fever >101.5 Apixaban 5 mg 09/08/25 21:00 09/13/25 08:43 Apixaban 2.5 Mg Tablet PO 10/08/25 20:59 5 mg BID DARLENE Administration Bumetanide 1 mg 09/09/25 09:00 Bumetanide Inj 0.25 Mg/Ml Vial 4 Ml IVP 10/09/25 08:59 On Hold: 09/09/25 09:00 QDAY DARLENE Digoxin 0.125 mg 09/11/25 19:30 09/13/25 08:20 Digoxin 0.125 Mg Tablet PO 10/11/25 19:29 0.125 mg QDAY DARLENE Administration Diltiazem HCl 240 mg 09/13/25 09:00 09/13/25 08:21 Diltiazem Cd 120 Mg Capcr PO 10/13/25 08:59 240 mg QDAY DARLENE Administration Guaifenesin/Dextromethorphan 1 each 09/08/25 17:59 Guaifenesin/Dm Tablet PO 10/08/25 17:58 BID PRN COUGH Meropenem 1,000 mg/ Sodium 50 mls @ 100 mls/hr 09/13/25 14:00 Chloride IV 09/20/25 13:59 Q8HR DARLENE Linezolid 600 mg in 300 mls @ 300 mls/hr 09/13/25 12:04 Zyvox Ivpb IV 09/20/25 12:03 Q12HR DARLENE Ipratropium Friend 0.5 mg 09/08/25 23:00 09/13/25 06:56 Ipratropium Rt 0.5 Mg/ 2.5 Ml Nebu INH 10/08/25 22:59 0.5 mg Q8HRRT DARLENE Administration Levalbuterol HCl 1.25 mg 09/08/25 23:00 09/13/25 06:56 Levalbuterol Rt 1.25 Mg/0.5 Ml Nebu INH 10/08/25 22:59 1.25 mg Q8HRRT DARLENE Administration Metoprolol Tartrate 100 mg 09/12/25 18:45 09/13/25 08:20 Metoprolol Tartrate 25 Mg Tablet PO 10/12/25 18:44 100 mg BID DARLENE Administration Midodrine 10 mg 09/13/25 14:00 Midodrine 5 Mg Tablet PO 10/11/25 13:59 TID DARLENE Ondansetron HCl 4 mg 09/11/25 21:25 09/12/25 17:47 Ondansetron Inj 2 Mg/Ml Inj 2 Ml IVP 10/11/25 21:24 4 mg Q8HR PRN Administration NAUSEA OR VOMITING Protocol Sodium Chloride 3 ml 09/12/25 11:43 Sodium Chloride Rt Dominique 0.9% 3 Ml Nebu INH 10/12/25 11:42 PRN PRN SOLN Plan Patient is 65-year-old male with past medical history of A-fib, status post pacemaker placement (2006, with [address] 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 Admitted for acute hypoxic respiratory failure secondary to pleural effusion. Cardiology consulted for atrial fibrillation and concern for heart failure exacerbation. 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 Denies fever, chills, recent sick contact. Patient worsening dypnea likely due to bilateral pleural effusion. Patient work of breathing will likely improve after getting therapeutic thoracentesis. Chest x-ray showed chest x-ray bibasilar pneumonia/or edema large bilateral pleural effusion. Mild enlargement cardiac contour with prominent vascular congestion. PSI/PORT score 137 points- Risk Class V (high risk) , 27.0-29.2% mortality.? 09/09--right thoracentesis removed approximately 1500 cc fluid. Consistent with exudative effusion. 09/10--underwent left thoracentesis removal of 1300 cc fluid. - home metoprolol tartrate 100mg BID -hold digoxin now due to worsening kidney function and hyperkalemia -continue antibiotics - restart IV Bumex 2mg daily #Hypertension Patient has a history of hypertension which he takes lisinopril at home. BP on admission is 90/63 downtrending to 85/61 Plan - metoprolol tartrate 100mg BID - Midodrine 2.5 mg p.o. 3 times daily as needed for SBP less than 90 and MAP present 65 #Atrial fibrillation, rate controlled, chronic #Sick sinus syndrome s/p pacemaker placement EKG is paced sinus rhythm Pt has pacemaker placed in 2006 which has been replaced [address] Marquez CHADsVAS score 4 -?6.7% risk of stroke/TIA/systemic embolism HAS BLED score 2 - Metoprolol tartrate 100mg BID - Eliquis 5 mg p.o. twice daily - Diltiazem 120mg daily (held) - hold Digoxin 0.125 mg po daily -hold lisinopril - Keep K > 4 and Mg > 2 #HFpEF EF 55-60% Echo on 03/17/2025 showed EF 55-60%. Diastolic function difficult to evaluate due to A-fib. Severe biatrial dilation. Echo 09/09-- Left ventricle size is normal and systolic function is normal. Estimated ejection fraction is 50-55%. There is indeterminate diastolic dysfunction due to presence of pacemaker. -CTM -restart IV Bumex 2mg daily #Normocytic anemia, chronic #Castleman syndrome #Coagulopathy #CT finding bilateral metastatic pulmonary nodules #VIOLETA Primary care team to manage above conditions and ongoing care needs. The patient's management plan was discussed with my attending physician Dr. Marquez. Naina Sher, PGY-2
--- NOTE | 2025-09-13 13:05 | PC.CM ---
Addendum entered by Dilcia Erickson RN 09/13/25 19:14: 1909 I called [facility] and set up transport. I called and asked charge nurse to fax over paperwork. [facility] will give charge nurse the pharmacy picking technician time once they receive the paperwork. Addendum entered by Dilcia Erickson RN 09/13/25 19:07: 1901 I received a call from Namrata at [facility]. She states patient has been accepted to room 4206 at [facility]. Address [address] [place] [address]. The number to call and give report is [phone]. I called charge nurse and gave her an update. I will call [facility] and set up transport. Addendum entered by Dilcia Erickson RN 09/13/25 18:03: 1755 I received a call from Namrata with [facility] patient placement at [facility] phone # [phone] fax # [phone]. She asked that I fax over the discharge summary and I provided her with updated VS. Addendum entered by Dilcia Erickson RN 09/13/25 17:07: 1700 I received a call from [facility] transfer nurse Maximo. She states patient has been medically accepted to [facility] at [facility]. They have no beds at this time so we are waiting on bed availability. I had Dr. [facility] sign transfer packet and I made 1 CD for the packet. Addendum entered by Dilcia Erickson RN 09/13/25 15:06: 1445 I called [facility] transfer center to follow up on transfer request. They stated they received all the clinicals and they are waiting to hear from the doctor. I started transfer packet. Original Note: 1235 I reviewed chart and I contacted [facility] transfer center and I spoke to Maria E transfer nurse. I initiated a transfer and I faxed over information. Maximo was able to find patient in her system. Maria E states patient is followed by Dr. Moctezuma and he has been getting his immunosupppressive drug therapy in [place] at a cancer infusion facility. She states he was last seen there 3 weeks ago. Maximo states patient had a telephone appointment with Dr. Moctezuma on 09/03. 1200 I received a referral to transfer patient for hematology and oncology. Patient has a history of castleman syndrome and has extensive mediastinal lymphadenopathy . Patient received treatment at [facility] for insuppressible drug therapy. Dr. Hansen states they want patient to go back to [facility] to continue the drug therapy. He states patient is not stable for discharge at this time.
[2025-09-13] MEDS: MEROPENEM INJ 1,000 MG in SODIUM CHLORIDE 0.9% (Popper) 50 ML 100 MG IV (13:43)
--- NOTE | 2025-09-13 15:32 | PC.NURSE ---
Pt has bumex ordered. Blood Pressure 98/66. HR 98. Called Dr. Torrez to ask if he still wants the bumex administered. will get back to me.
[2025-09-13] MEDS: BUMETANIDE INJ 0.25 MG/ML VIAL 4 ML 1 MG IVP (17:06)
[2025-09-13] MEDS: SEVELAMER CARBONATE 800 MG TABLET PO (17:08)
== END 2025-09-13 21:30 | disposition short-term general hospital (02) | DRG 871 ==
LOC: SERX 16:01 → SERHOLD 17:11 → S2SX 09-09 06:14 → S2NX 09-12 06:07
PROVIDERS: Registered Nurse General Practice; Student in an Organized Health Care Education/Training Program; Admitting Provider Student in an Organized Health Care Education/Training Program; Emergency Provider Emergency Medicine; Visit Provider Internal Medicine
DX: A41.9 Sepsis, unspecified organism (principal); J18.9 Pneumonia, unspecified organism; J96.01 Acute respiratory failure with hypoxia; R65.21 Severe sepsis with septic shock; I48.19 Other persistent atrial fibrillation; N17.9 Acute kidney failure, unspecified; I50.32 Chronic diastolic (congestive) heart failure; J91.8 Pleural effusion in other conditions classified elsewhere; D47.Z2 Castleman disease; E87.20 Acidosis, unspecified; C78.01 Secondary malignant neoplasm of right lung; C78.02 Secondary malignant neoplasm of left lung; D68.9 Coagulation defect, unspecified; B38.0 Acute pulmonary coccidioidomycosis; J94.0 Chylous effusion; I49.5 Sick sinus syndrome; I11.0 Hypertensive heart disease with heart failure; D64.9 Anemia, unspecified; Z95.0 Presence of cardiac pacemaker; E11.9 Type 2 diabetes mellitus without complications; E83.39 Other disorders of phosphorus metabolism; E86.1 Hypovolemia; N27.0 Small kidney, unilateral; E87.5 Hyperkalemia; Z79.899 Other long term (current) drug therapy; F41.9 Anxiety disorder, unspecified; Z79.01 Long term (current) use of anticoagulants; Q21.4 Aortopulmonary septal defect; D69.6 Thrombocytopenia, unspecified; I95.89 Other hypotension; D75.839 Thrombocytosis, unspecified
CPT/HCPCS: 36415; 71045; 71250; 76770; 80048; 80053; 80162; 80307; 81001; 82150; 82436; 82550; 82570; 82803; 82945; 83605; 83615; 83735; 83880; 83986; 84100; 84132; 84133; 84145; 84157; 84300; 84311; 84478; 84484; 84540; 85025; 85610; 85730; 87040; 87070; 87075; 87081; 87205; 87635; 89051; 93005; 93306; 94640; 94644; 94645; 94660; 94664; 96374; 99284; A9270; J0696; J1815; J2021; J2185; J2405; J2543; J3475; J3490; J7050; J7120; J7602; J7612; J7644; P9047; J7611